=== PATIENT | male | born 1950 | race Caucasian/White ===

== ENCOUNTER 2024-07-22 09:09 | Outpatient (OUT) | payer MEDICARE, OTHER, SELFPAY ==
--- NOTE | 2024-07-22 09:21 | CA_ITS ---
Patient Name: EMMA ALVARENGA MR#: [id number] : 1950 Exam Date: 07/22/2024 Ordering Doctor: DR DENNIS PERKINS ECHOCARDIOGRAM REPORT PROCEDURE: CA ECHO DOPPLER COMPLETE INDICATIONS: Chest pain, Shortness of breath COMPARISON: None. DESCRIPTION: COMPLETE ECHOCARDIOGRAM Real-time transthoracic echocardiography with 2D, M-mode, spectral and color flow Doppler performed. QUALITY: Technical quality was good. LEFT VENTRICLE: Normal chamber size. Mild left ventricular hypertrophy. LV EF: Global left ventricular systolic function is mildly decreased. Visual estimation of left ventricular ejection fraction is 45-50%. Global hypokinesis. DIASTOLIC: Not adequately assessed due to heart rhythm. ATRIAL SEPTUM: Inadequately seen. LEFT ATRIUM: Normal chamber size. RIGHT ATRIUM: Mildly dilated. RIGHT VENTRICLE: Normal chamber size. Normal right ventricular systolic function. TRICUSPID VALVE: Normal mobility and thickness. No stenosis with mild regurgitation. No evidence of pulmonary hypertension. RVSP 24mmHg MITRAL VALVE: Normal mobility and thickness. No evidence of mitral valve stenosis. There is no mitral annular calcification. Mild mitral regurgitation. AORTIC VALVE: Normal trileaflet appearance. Mildly calcified aortic valve. Normal leaflet mobility. No evidence of aortic valve stenosis. AORTIC ROOT: Normal diameter and appearance. PULMONIC VALVE: Normal thickness and mobility. No stenosis. Trivial regurgitation. PERICARDIUM: No evidence of pericardial effusion. IVC: Collapses with inspirations. Mild dilatation measuring 2.3cm. CONCLUSION: 1. Global left ventricular systolic function is mildly decreased; visually estimated ejection fraction is 45 to 50% 2. Normal right ventricular size and systolic function 3. Mild left ventricular hypertrophy 4. The right atrium is mildly enlarged 5. Mild tricuspid regurgitation 6. Mild mitral regurgitation Adult Echocardiography Procedure Report Left Ventricle LVEDD (3.7 - 5.6 cm): 5.08 cm LVESD (2.2 - 4.0 cm): 3.54 cm LVIVS thickness (0.6 - 1.2 cm): 1.34 cm LVPW thickness (0.5 - 1.0 cm): 1.20 cm e': 0.08 m/s E - e': 6.42 LVOT Max Gradient: 1.82 mm[Hg] LVOT Area (cm2): 0.68 m/s Peak Velocity (LVOT): 0.68 m/s Mean Velocity (LVOT): 0.44 m/s LVOT Diameter 2.25 cm Left Ventricular Ejection Fraction: 51.06 % Left Atrium LA Volume Index (2D A2C): 31.50 ml/m2 Left Atrium Systolic Dimension: 4.22 cm Mitral Valve MV E to A Ratio: 1.45 Mitral Valve A-Wave Peak Velocity: 0.36 m/s Mitral Valve E-Wave Peak Velocity: 0.52 m/s Right Ventricle RV Internal Diastolic Dimension: 3.81 cm Aorta AO Root Diam: 3.40 cm Ascending Ao Diam: 3.32 cm, 3.36 cm Aortic Valve AoV Area (Peak Ed): 2.38 cm2, 2.38 cm2 AoV Area (VTI): 2.49 cm2, 2.49 cm2 Peak Velocity(Antegrade Flow): 1.12 m/s Peak Gradient(Antegrade Flow): 5.06 mm[Hg] Mean Velocity(Antegrade Flow): 0.82 m/s Mean Gradient(Antegrade Flow): 3.06 mm[Hg] Velocity Time Integral: 22.55 cm Tricuspid Valve Peak Velocity (Regurgitant Flow): 2.03 m/s, 1.98 m/s, 2.26 m/s Pulmonic Valve Mean Gradient: 3.10 mm[Hg], 2.86 mm[Hg] Mean Velocity: 0.83 m/s, 0.81 m/s Peak Velocity: 1.11 m/s Peak Gradient: 5.32 mm[Hg], 4.50 mm[Hg] Right Atrium Right Atrium Systolic Pressure: 97.21 ml, 97.21 ml Dictated by: Laina Mcqueen M.D. on 07/22/2024 at 16:27 Approved by: Laina Mcqueen M.D. on 07/22/2024 at 16:31
== END 2024-07-22 09:10 | disposition home or self-care (01) ==
LOC: CARD 09:16
PROVIDERS: Family Provider Internal Medicine; PCP Internal Medicine; Visit Provider Internal Medicine
DX: R60.0 Localized edema (principal); R06.02 Shortness of breath; R93.1 Abnormal findings on diagnostic imaging of heart and coronary circulation; R07.9 Chest pain, unspecified
CPT/HCPCS: 93306

== ENCOUNTER 2024-08-05 07:57 | Outpatient (OUT) | payer MEDICARE, OTHER, SELFPAY ==
--- NOTE | 2024-08-05 07:35 | NM_ITS ---
Patient Name: EMMA ALVARENGA MR#: [id number] : 1950 Exam Date: 08/05/2024 Ordering Doctor: Willie Dos Santos RADIOLOGY REPORT PROCEDURE: NM POONAM PERF SPECT REST STR COMPARISON: None. INDICATIONS: DYSPNEA ON EXERTION, ABNORMAL EKG TECHNIQUE: Exam Description: Rest/Stress one day protocol gated SPECT Rest Imagin.9 mCi Tc-99m Cardiolite IV on 08-05-2024 Stress Imaging 30.1 mCi Tc-99m Cardiolite IV on 08-05-2024 Exercise Protocol: Ryder Heart Rate (bpm): Rest: 50 Max: 141 PMHR: 96 Blood Pressure: Rest: 130/70 Max: 176/90 Exercise Time: Minutes: 6 Seconds: 41 Stage Reached: Stage: 3 Mets 9.0 Symptoms: Rest and peak stress ECG findings were pending and the exercise portion of the study was pending per attending physician [facility] . For more details, please see separate cardiac stress test report. FINDINGS: QUALITY OF STUDY: Good PERFUSION DEFECT: Inferoapical LOCATION: Inferior and apical SIZE: Moderate inferior and small apical SEVERITY: Moderate inferior and mild apical TYPE: The inferior perfusion defect appears fixed, the apical defect appears reversible WALL MOTION: Inferior hypokinesis LV SIZE: 141 mL. TID / TCD: 1.0 LVEF: Calculated EF 48%. SUMMARY: Myocardial perfusion imaging study is abnormal CONCLUSION: 1. Myocardial perfusion is abnormal with soft tissue attenuation 2. There is an inferior fixed defect with associated hypokinesis consistent with infarct 3. There is a small, mild, reversible apical defect suggestive of ischemia 4. Global left ventricular systolic function is mildly reduced 5. No evidence of transient ischemic dilatation Dictated by: Laina Mcqueen M.D. on 08/06/2024 at 12:31 Approved by: Laina Mcqueen M.D. on 08/06/2024 at 12:36
--- NOTE | 2024-08-05 17:07 | P.STRESS_ITS ---
Stress Test Stress Test Requesting physician: Willie Dos Santos Procedure: This was a treadmill stress test with myocardial perfusion imaging performed at [facility] on 08/05/2024. An intravenous line was secured. The patient was attached to electrocardiographic monitoring. Rest of blood pressure and heart rate were recorded. The patient exercised on the treadmill according to the Ryder protocol for 6 minutes and 41 seconds and reached stage III of the protocol. The patient achieved 9 METS. Resting heart rate was 50 bpm and resting blood pressure was 121/69. Peak heart rate was 141 bpm representing 93% of maximum predicted heart rate. Peak blood pressure was 176/90. The test was stopped due to target heart rate being achieved and shortness of breath. Cardiolite was injected at peak exercise. The patient then went on to obtain myocardial perfusion imaging. General Information: Reason for Stress Test: dyspnea, abnormal ECG. Cardiac History and Risk Factors: Atrial fibrillation. Resting 12 - Lead Electrocardiogram: Sinus bradycardia, left axis deviation, right bundle branch block. Stress Test: Protocol: Ryder protocol. Exercise Capacity: Good. Blood Pressure Response: Normal resting blood pressure, normal blood pressure response to exercise. Rhythm: Sinus rhythm at baseline, patient developed atrial flutter with variable AV block during exercise. Then reverted to sinus rhythm with PACs and PVCs. Final ECG was showing sinus rhythm and was comparable to baseline. ST - Response: No ischemic ST changes seen. Patient Response: Shortness of breath. Interpretation: 1. No evidence of ischemic ST changes seen with treadmill exercise stress test. 2. The patient developed atrial flutter with variable AV conduction during exercise that reverted to sinus rhythm at the end of the test. 3. Myocardial perfusion images will be reported separately.
== END 2024-08-05 07:58 | disposition home or self-care (01) ==
LOC: NM 07:57
PROVIDERS: Family Provider Internal Medicine; PCP Internal Medicine; Visit Provider Internal Medicine Cardiovascular Disease
DX: R94.31 Abnormal electrocardiogram [ECG] [EKG] (principal)
CPT/HCPCS: 78452; 93017; A9500

== ENCOUNTER 2024-09-11 15:28 | Outpatient (OUT) | payer MEDICARE, OTHER, SELFPAY ==
[2024-09-11 15:46] LABS: Basophils Percent Auto 0.7 % (0.2-2.0); Eosinophils Absolute Auto 0.2 10^3/uL (0.0-0.7); Eosinophils Percent Auto 3.7 % (0.9-7.0); Hematocrit 35.7 % (42.0-54.0); Hemoglobin 11.2 g/dL (14.0-18.0); Immature Granulocytes Abs Auto 0.02 10^3/uL (0.00-0.03); Immature Granulocytes Pct Auto 0.4 % (0.0-0.5); Mean Corpuscular HGB Conc 31.4 g/dL (29.9-35.2); Mean Corpuscular Hemoglobin 28.9 pg (25.9-34.0); Mean Corpuscular Volume 92.2 fL (80.0-94.0); Mean Platelet Volume 9.9 fL (9.5-13.5); Monocytes Absolute Auto 0.5 10^3/uL (0.3-0.8); Monocytes Percent Auto 9.3 % (1.7-12.0); Neutrophils Absolute Auto 3.9 10^3/uL (1.4-6.5); Neutrophils Percent Auto 67.9 % (43.0-75.0); Platelet Count 337 10^3/uL (150-450); Red Blood Count 3.87 10^6/uL (4.70-6.10); Red Cell Distribution Width 13.1 % (11.0-15.0); White Blood Count 5.7 10^3/uL (4.0-11.0)
== END 2024-09-11 15:29 | disposition home or self-care (01) ==
LOC: LAB 15:29
PROVIDERS: Family Provider Internal Medicine; PCP Internal Medicine; Visit Provider Internal Medicine Interventional Cardiology
DX: I25.10 Atherosclerotic heart disease of native coronary artery without angina pectoris (principal); I50.22 Chronic systolic (congestive) heart failure
CPT/HCPCS: 36415; 85025

== ENCOUNTER 2024-11-25 08:04 | Outpatient (OUT) | payer MEDICARE, OTHER, SELFPAY ==
[2024-11-25 08:33] LABS: Hematocrit 40.3 % (42.0-54.0); Hemoglobin 12.4 g/dL (14.0-18.0); Immature Granulocytes Abs Auto 0.03 10^3/uL (0.00-0.03); Immature Granulocytes Pct Auto 0.6 % (0.0-0.5); Lymphocytes Absolute Auto 0.9 10^3/uL (1.2-3.8); Mean Corpuscular HGB Conc 30.8 g/dL (29.9-35.2); Mean Corpuscular Hemoglobin 24.2 pg (25.9-34.0); Mean Corpuscular Volume 78.7 fL (80.0-94.0); Platelet Count 243 10^3/uL (150-450); Red Blood Count 5.12 10^6/uL (4.70-6.10); White Blood Count 5.4 10^3/uL (4.0-11.0)
[2024-11-25 09:01] LABS: Alanine Aminotransferase 23 U/L (16-63); Albumin Globulin Ratio 1.1; Albumin Level 3.5 g/dL (3.4-5.0); Alkaline Phosphatase 92 U/L (46-116); Anion Gap 11.5; Aspartate Amino Transferase 20 U/L (15-37); Blood Urea Nitrogen 16.0 mg/dL (7.0-18.0); Calcium 8.6 mg/dL (8.5-10.1); Carbon Dioxide 28.9 mmol/L (21.0-32.0); Chloride 107 mmol/L (98-107); Estimated GFR (African America >60 (>=60 mL/min/1.73m^2); Estimated GFR (Non-African Ame >60 (>=60 mL/min/1.73m^2); Globulin 3.2 g/dL; Glucose 136 mg/dL (74-106); NT Pro B Type Natriuretic Pept 103.0 pg/mL (<=1800.0); Potassium 4.4 mmol/L (3.5-5.1); Sodium 143 mmol/L (136-145); Total Protein 6.7 g/dL (6.4-8.2)
== END 2024-11-25 08:05 | disposition home or self-care (01) ==
LOC: LAB 08:05
PROVIDERS: Family Provider Internal Medicine; PCP Internal Medicine; Visit Provider Internal Medicine Interventional Cardiology
DX: M79.89 Other specified soft tissue disorders (principal); I50.23 Acute on chronic systolic (congestive) heart failure; R06.09 Other forms of dyspnea
CPT/HCPCS: 36415; 80053; 83880; 85025

== ENCOUNTER 2024-12-06 07:05 | Outpatient (OUT) | payer MEDICARE, OTHER, SELFPAY ==
--- OUTSIDE RECORDS SUMMARY | 2024-12-06 07:08 | XMS_ITS | CCD ---
Author Organization [facility] Care Team Providers Care Water Quality Specialist Name Role Phone GREGORIO DENNIS Unavailable Unavailable VASCHAK, DENNIS Unavailable Unavailable VASCHAK, DENNIS Unavailable Unavailable DONTAE RUSSELL (FEL) Unavailable Unavailabl e PIORO, JM CLEMENT Unavailable Unavailab le PIORO, JM CLEMENT Unavailable Unavailab le GABINO, SONY Unavailable Unavailable GABINO, SONY Unavailable Unavailable GABINO, SONY Unavailable Unavailable VASCHAK, DENNIS Unavailable Unavailable GABINO, SONY Unavailable Unavailable GABINO, SONY Unavailable Unavailable GABINO, SONY Unavailable Unavailable AGUBOSIM COLTON Unavailable Unavailable RADHAK DENNIS Unavailable Unavailable Radhak Dennis MURRAY Primary Care Provider Dennis Irizarry DO Unavailable MARIELLE PALMER Attending Unavailable DENNIS IRIZARRY Attending Unavailable CELOS MONTANO Attending Unavailable CELSO MONTANO Referring Unavailable PAM JACKSON Attending Unavailable PAM JACKSON Referring Unavailable JR. RAMIREZ GEORGE C Attending UnavailBROOKE Vee Attending Unavailable BROOKE DELGADO Referring Unavailable DENNIS IRIZARRY Attending Unavailable DENNIS IRIZARRY Referring Unavailable REAL HOWARD Referring Unavailabl REAL Vinson Attending Unavailabl e KEITH CHERRY Referring Unavailable DERISOKEITH Referring Unavailable DERKEITH ALFARO Referring Unavailable REAL HOWARD Referring Unavailabl e HAYDERISOKEITH Admitting Unavailable KEITH CHERRY Attending Unavailable JETHRO BARRETT Attending Unavailable CARMINE, KEITH Referring Unavailable DERKEITH ALFARO Referring Unavailable KATIA CHAVEZ Referring Unavailable KATIA CHAVEZ Referring Unavailable LLUVIA DRISCOLL Referring Unavailable REAL HOWARD Referring Unavailabl e DERISO, KEITH Referring Unavailable DERISO, KEITH Referring Unavailable REAL HOWARD Attending UnavailJETHRO Sheppard Attending Unavailable SCOTT, Referring Unavailable SCOTT, Referring Unavailable DERISO, KEITH Referring Unavailable SCOTT, Referring Unavailable SCOTT, Referring Unavailable SCOTT, Referring Unavailable ARMIDA GUTIERREZ Attending Unavailable REAL HOWARD Referring Unavailabl e ELTAHAWY, EHAB Referring Unavailable DERISO, KEITH Referring Unavailable ELTAHAWY, EHAB Attending Unavailable REAL HOWARD Referring Unavailabl e ELTAHAWY, EHAB Referring Unavailable Allergies Allergy Classification Reported Allergen(s) Allergy Type Date of Onset Reaction(s) Facility (1 source) OTHER; Translations: [OTHER] Propensity to adverse reactions (disorder) 0 [facility] Repository (1 source) No Known Drug Allergies Drug allergy (disorder) [facility] Repository (1 source) Misc-Food; Translations: [Misc-Food] Food allergy (disorder) [facility] Rep[facility] Medications Current Medications Medication Drug Class(es) Dates Sig (Normalized) Sig (Original) acetaminophen 500 mg oral tablet (8 sources) Start: 08-21-2024 take 1 tablet by mouth every six hours as needed acetaminophen (Tylenol) 500 MG tablet Take 500 mg by mouth every 6 (six) hours if needed 08/21/2024 Active amiodarone hydrochloride 200 mg oral tablet (6 sources) Antiarrhythmic Start: 07-30-2024 End: 11-11-2024 take 1 tablet by mouth once daily amiodarone (Pacerone) 200 MG tablet Take 200 mg by mouth Daily 07/30/2024 11/11/2024 Active aspirin 81 mg chewable tablet (7 sources) Platelet Aggregation Inhibitor, Nonsteroidal Anti-inflammatory Drug Start: 08-21-2024 End: 11-24-2024 aspirin 81 MG chewable tablet Chew 81 mg in the morning. 08/21/2024 11/24/2024 Active atorvastatin 10 mg oral tablet (18 sources) HMG-CoA Reductase Inhibitor Start: 04-17-2024 End: 04-17-2025 take 1 tablet by mouth once daily atorvastatin (Lipitor) 10 MG tablet Indications: Hypercholesteremia Take 1 tablet (10 mg) by mouth Daily 30 tablet 3 04/17/2024 04/17/2025 Active clopidogrel 75 mg oral tablet (8 sources) P2Y12 Platelet Inhibitor Start: 08-21-2024 End: 11-27-2024 take 1 tablet by mouth in the morning clopidogrel (Plavix) 75 MG tablet Take 75 mg by mouth in the morning. 08/21/2024 11/27/2024 Active latanoprost 0.05 mg/ml ophthalmic solution (20 sources) Prostaglandin Analog Start: 08-01-2023 latanoprost (Xalatan) 0.005 % ophthalmic solution 08/01/2023 Active Start: 08-01-2023 take 1 drop(s) into the eye(s) at bedtime latanoprost (Xalatan) 0.005 % ophthalmic solution PLACE 1 DROP IN BOTH EYES AT BEDTIME 08/01/2023 Active magnesium oxide 500 mg oral capsule (20 sources) Magnesium 500 MG capsule 1 (one) time each day at the same time Active omeprazole 20 mg delayed release oral capsule (20 sources) Proton Pump Inhibitor Start: 10-26-19 take 1 capsule by mouth before mealtime omeprazole (PriLOSEC) [address] capsule Indications: Gastroesophageal reflux disease without esophagitis TAKE 1 CAPSULE (20 MG) BY MOUTH IN THE MORNING. TAKE BEFORE MEALS. 90 capsule 3 10/26/2023 Active 12 hr timolol 5 mg/ml ophthalmic solution (20 sources) beta-Adrenergic Cyndi Start: 07-05-19 timolol (Timoptic) 0.5 % ophthalmic solution 07/05/2023 Active Start: 07-05-2023 timolol (Timop tic) 0.5 % ophthalmic solution INSTILL 1 DROP TO BOTH EYES EACH MORNING. 07/05/2023 Active Completed/Discontinued Medications Medication Drug Class(es) Dates Sig (Normalized) Sig (Original) docusate sodium 100 mg oral capsule (3 sources) Start: 08-21-2024 End: 09-20-2024 Docusate Sodium (DSS) 100 MG capsule Take 200 mg by mouth 2 (two) times a day as needed 08/21/2024 09/20/2024 ferrous sulfate 325 mg oral tablet (2 sources) Start: 08-21-2024 End: 09-02-2024 take 1 tablet by mouth at mealtime ferrous sulfate 325 (65 Fe) MG tablet Take 325 mg by mouth in the morning. Take with meals. 08/21/2024 09/02/2024 Discontinued (Therapy completed) furosemide 40 mg oral tablet (3 sources) Loop Diuretic Start: 08-21-2024 End: 09-20-2024 take 1 tablet by mouth in the morning as needed furosemide (Lasix) 40 MG tablet Take 40 mg by mouth in the morning. PRN. 08/21/2024 09/20/2024 12 hr guaiFENesin 600 mg extended release oral tablet (2 sources) Start: 08-21-2024 End: 09-02-2024 take 1 tablet by mouth in the morning as needed, then take 1 tablet by mouth every twelve hours in the evening as needed guaiFENesin (Mucinex) 600 MG 12 hr tablet Take 600 mg by mouth in the morning and 600 mg in the evening. PRN. 08/21/2024 09/02/2024 Ibuprofen (17 sources) Nonsteroidal Anti-inflammatory Drug End: 09-02-2024 Ibuprofen (ADVIL PO) Take by mouth PRN 09/02/2024 Discontinued (Therapy completed) Ibuprofen (ADVIL PO) Take by mouth PRN Active methocarbamol 500 mg oral tablet (2 sources) Muscle Relaxant Start: 08-29-2024 End: 09-02-2024 take 1 tablet by mouth three times daily as needed methocarbamol (Robaxin) 500 MG tablet Take 500 mg by mouth 3 (three) times a day as needed 08/29/2024 09/02/2024 Discontinued (Therapy completed) 1 ml methylPREDNISolone acetate 40 mg/ml injection (4 sources) Corticosteroid Start: 04-09-2024 End: 04-09-2024 methylPREDNISolone acetate (DEPO-Medrol) injection 40 mg Start: 04-09-2024 End: 04-09-2024 40 mg, Intra-articular, Once PRN Procedure, Starting on Mon04/09/24 at 1239, For 1 dose oxyCODONE hydrochloride 5 mg oral tablet (2 sources) Opioid Agonist Start: 08-21-2024 End: 09-02-2024 take 1 tablet by mouth every six hours as needed oxyCODONE (Roxicodone) 5 MG immediate release tablet Take 5 mg by mouth every 6 (six) hours if needed 08/21/2024 09/02/2024 Discontinued (Therapy completed) Problems Active Problems Problem Classification Problem Date Documented Date Episodic/Chronic Abdominal hernia (5 sources) Bilateral inguinal hernia, without obstruction or gangrene, not specified as recurrent; Translations: [BRITNI ING CAROLYN NO OBST/GANG NOT RECUR] Onset: 01-08-2018 Episodic Cardiac dysrhythmias (10 sources) Atrial fibrillation; Translations: [Unspecified atrial fibrillation] Onset: 08-18-2024 11-02-2024 Chronic Congestive heart failure; nonhypertensive (6 sources) Acute diastolic heart failure; Translations: [Acute diastolic (congestive) heart failure] Onset: 09-11-2024 11-02-2024 Chronic Coronary atherosclerosis and other heart disease (4 sources) Atherosclerotic heart disease of [place] coronary artery with other forms of angina pectoris; Translations: [Atherosclerotic heart disease of [place] coronary artery without angina pectoris] Onset: 08-14-2024 Chronic Deficiency and other anemia (2 sources) Anemia due to blood loss; Translations: [Iron deficiency anemia secondary to blood loss (chronic)] 11-02-2024 Chronic Deficiency and other anemia (2 sources) Anemia, unspecified; Translations: [Anemia, unspecified] Onset: 08-29-2024 Episodic Disorders of lipid metabolism (20 sources) Hyperlipidemia, unspecified; Translations: [Hypercholesterolemia] Onset: 01-18-2018 Resolved: 11-02-2024 09-14-2023 Chronic Esophageal disorders (20 sources) Gastroesophageal reflux disease without esophagitis; Translations: [Gastro-esophageal reflux disease without esophagitis] Onset: 03-19-2017 09-14-2023 Chronic Joint disorders and dislocations; trauma-related (4 sources) Derangement of right knee; Translations: [Unspecified internal derangement of right knee] 04-24-2024 Chronic Osteoarthritis (20 sources) Unspecified osteoarthritis, unspecified site; Translations: [Primary osteoarthritis, unspecified site] Onset: 03-13-2017 09-14-2023 Chronic Other and unspecified benign neoplasm (1 source) Benign lipomatous neoplasm of spermatic cord; Translations: [SHARYN LIPOMATOUS NEOP SPERMATIC CORD] Onset: 01-18-2018 Episodic Other circulatory disease (2 sources) Other hypotension; Translations: [Other hypotension] Onset: 09-11-2024 Episodic Other connective tissue disease (2 sources) Other specified soft tissue disorders; Translations: [Other specified soft tissue disorders] Onset: 11-21-2024 Episodic Other connective tissue disease (2 sources) Myalgia, unspecified site; Translations: [Myalgia, unspecified site] Onset: 08-29-2024 Episodic Other liver diseases (2 sources) Elevated liver enzymes level; Translations: [Abnormal levels of other serum enzymes] 11-02-2024 Episodic Other lower respiratory disease (2 sources) Dyspnea; Translations: [Shortness of breath] 07-15-2024 Episodic Other lower respiratory disease (2 sources) Other forms of dyspnea; Translations: [Other forms of dyspnea] Onset: 11-21-2024 Episodic Other nervous system disorders (20 sources) Chronic pain syndrome; Translations: [Chronic pain syndrome] Onset: 09-14-2023 09-14-2023 Chronic Other nervous system disorders (2 sources) Benign fasciculation-cramp syndrome; Translations: [Fasciculation] 03-22-2024 Episodic Other non-traumatic joint disorders (6 sources) Pain in right knee; Translations: [Pain in joint, lower leg] 04-08-2024 Episodic Other screening for suspected conditions (not mental disorders or infectious disease) (20 sources) Coronary artery finding; Translations: [Abnormal findings on diagnostic imaging of heart and coronary circulation] Onset: 07-20-2017 09-14-2023 Episodic Residual codes; unclassified (4 sources) Bilateral lower limb edema; Translations: [Localized edema] 07-16-2024 Episodic Residual codes; unclassified (6 sources) History of maze procedure for atrial fibrillation; Translations: [Other specified postprocedural states] Onset: 11-02-2024 11-02-2024 Episodic Residual codes; unclassified (6 sources) H/O cardiac surgery; Translations: [Other specified postprocedural states] Onset: 11-02-2024 11-02-2024 Episodic Residual codes; unclassified (2 sources) Other specified postprocedural states; Translations: [Other specified postprocedural states] Onset: 09-11-2024 Episodic Spondylosis; intervertebral disc disorders; other back problems (20 sources) Cervical spondylosis without myelopathy; Translations: [Spondylosis without myelopathy or radiculopathy, cervical region] Onset: 09-14-2023 09-14-2023 Chronic Substance-related disorders (1 source) Nicotine dependence, other tobacco product, uncomplicated; Translations: [NICOTINE DEPEND OTH TOB PROD UNCOMP] Onset: 01-18-2018 Chronic Unclassified (2 sources) Pure hypercholesterolemia, unspecified / E78.00(ICD-9) Onset: 07-17-2017 Unclassified (1 source) Encounter for screening for cardiovascular disorders / Z13.6(ICD-9) Onset: 07-17-2017 Past or Other Problems Problem Classification Problem Date Documented Da te Episodic/Chronic Coronary atherosclerosis and other heart disease (2 sources) Presence of aortocoronary bypass graft; Translations: [Presence of aortocoronary bypass graft] Onset: 08-14-2024 Episodic Other aftercare (2 sources) Encounter for follow-up examination after completed treatment for conditions other than malignant neoplasm; Translations: [Encounter for follow-up examination after completed treatment for conditions other than malignant neoplasm] Onset: 08-14-2024 Episodic Other lower respiratory disease (2 sources) Dyspnea, unspecified; Translations: [Dyspnea, unspecified] Onset: 08-14-2024 Episodic Other nutritional; endocrine; and metabolic disorders (20 sources) Obesity; Translations: [Obesity, unspecified] Onset: 09-14-2023 Resolved: 11-02-2024 09-14-2023 Chronic Residual codes; unclassified (2 sources) Pain, unspecified; Translations: [Pain, unspecified] Onset: 08-14-2024 Episodic Spondylosis; intervertebral disc disorders; other back problems (20 sources) Chronic neck pain; Translations: [Cervicalgia] Onset: 03-19-2017 09-14-2023 Episodic Unclassified (1 source) Pure hypercholesterolemia , unspecified; Translations: [Pure hypercholesterolemia , unspecified] Onset: 07-17-2017 Results Test Name Value Interpretation Reference Range Facility ALL CBC WITH AUTO DIFFon BASOPHILS ABSOLUTE AUTO 0.1 [facility] Basophils/100 WBC (Bld) 0.9 % 0.2 - 2.0 % [facility] Eosinophils/100 WBC (Bld) 3.5 % 0.9 - 7.0 % [facility] Erythrocyte distribution width (RBC) [Ratio] 15.1 % High 11.0 - 15.0 % [facility] Hematocrit (Bld) [Volume fraction] 40.3 % Low 42.0 - 54.0 % [facility] Hemoglobin (Bld) [Mass/Vol] 12.4 g/dL Low 14.0 - 18.0 g/dL [facility] IMMATURE GRANULOCYTES ABS AUTO 0.03 [facility] Immature granulocytes/100 WBC (Bld) 0.6 % High 0.0 - 0.5 % [facility] Interpretation and review of laboratory results Abnormal [facility] LYMPHOCYTES ABSOLUTE AUTO 0.9 Low [facility] Lymphocytes/100 WBC (Bld) 17.3 % Low 20.5 - 60.0 % [facility] MCH (RBC) [Entitic mass] 24.2 pg Low 25.9 - 34.0 pg [facility] MCHC (RBC) [Mass/Vol] 30.8 g/dL 29.9 - 35.2 g/dL [facility] MCV (RBC) [Entitic vol] 78.7 fL Low 80.0 - 94.0 fL [facility] MONOCYTES ABSOLUTE AUTO 0.4 [facility] Monocytes/100 WBC (Bld) 7.9 % 1.7 - 12.0 % [facility] NEUTROPHILS ABSOLUTE AUTO 3.8 [facility] Neutrophils/100 WBC (Bld) 69.8 % 43.0 - 75.0 % [facility] Platelet mean volume (Bld) [Entitic vol] 10.1 fL 9.5 - 13.5 fL [facility] TBH EO # 0.2 [facility] TB PLT [address] [facility] RBC 5.12 [facility]H WBC 5.4 [facility] ITPon 11-14-2024 [place] [address] Cardiac Rehab Report Signed Patient: EMMA JAMES MR#: [id number] : 1950 Acct:[id number] Age/Sex: 74 / M ADM Date: 11/14/24 Loc: CR Attending Dr: ARMIDA GUTIERREZ Ordering Physician: Steve Albright D.O. Date of Service: 11/14/24 Procedure(s): ITP Accession Number(s): [id number] cc: [facility] Test Date: 2024-11-14 Pat Name: EMMA JAMES Department: Room: - Gender: Male Extension Supervisor: : 1950 Requested By: Steve Albright Order Number: [id number] Reading MD: Steve Albright Interpretive Statements Though it can be difficult to attend rehab due to work, taking care of oneself is important. Perhaps looking ahead in his schedule, he would be able to identify alternative sessions that would fit into his life easier. The patient is encouraged to continue participating in cardiac rehabilitation. Electronically Signed On 11-14-2024 15:33:33 EDT by Steve Albright Dictated By: Steve Albright D.O. Signed By: 11/14/24 1534 11/14/244 DD/ 0856 TD/TT: Manager Quality Compliance: [facility] Radiology, Radiologi MD jairo - 11/14/2024 [place] [address] Cardiac Rehab Report Signed Patient: EMMA JAMES MR#: [id number] : 1950 Acct:[id number] Age/Sex: 74 / M ADM Date: 11/14/24 Loc: CR Attending Dr: ARMIDA GUTIERREZ Ordering Physician: Steve Albright D.O. Date of Service: 11/14/24 Procedure(s): ITP Accession Number(s): [id number] cc: [facility] Test Date: 2024-11-14 Pat Name: EMMA JAMES Department: Room: - Gender: Male Extension Supervisor: : 1950 Requested By: Steve Albright Order Number: [id number] Rob MD: Steve Albright Interpretive Statements Though it can be difficult to attend rehab due to work, taking care of oneself is important. Perhaps looking ahead in his schedule, he would be able to identify alternative sessions that would fit into his life easier. The patient is encouraged to continue participating in cardiac rehabilitation. Electronically Signed On 11-14-2024 15:33:33 EDT by Steve Albright Dictated By: Steve Albright D.O. Signed By: 11/14/24153311/14/24 1534 DD/ 0856 TD/TT: Manager Quality Compliance: [facility] Radiology Study observation (narrative) [facility] ITPOrdered By: Radiologist Jeff avila on 11-14-2024 [facility] Work Phone: 36on 11-08-2024 36 [facility] ITPon 10-16-2024 [place] [address] Cardiac Rehab Report Signed Patient: EMMA JAMES MR#: [id number] : 1950 Acct:[id number] Age/Sex: 73 / M ADM Date: 10/16/24 Loc: CR Attending Dr: ARMIDA GUTIERREZ Ordering Physician: Steve Albright D.O. Date of Service: 10/16/24 Procedure(s): ITP Accession Number(s): [id number] cc: [facility] Test Date: 2024-10-16 Pat Name: EMMA JAMES Department: Room: - Gender: Male Extension Supervisor: : 1950 Requested By: Steve Albright Order Number: [id number] Reading MD: Steve Albright Interpretive Statements Okay to continue with outlined treatment plan. Electronically Signed On 10-16-2024 9:16:57 EDT by Steve Albright Dictated By: Steve Albright D.O. Signed By: 10/16/24 0917 10/16/24 0917 DD/ 0715 TD/TT: Manager Quality Compliance: [facility] Radiology, Radiologez gill MD - 10/16/2024 The [place] [id number] Cardiac Rehab Report Signed Patient: EMMA JAMES MR#: [id number] : 1950 Acct:[id number] Age/Sex: 73 / M ADM Date: 10/16/24 Loc: CR Attending Dr: ARMIDA GUTIERREZ Ordering Physician: Steve Albright D.O. Date of Service: 10/16/24 Procedure(s): ITP Accession Number(s): [id number] cc: [facility] Test Date: 2024-10-16 Pat Name: EMMA JAMES Department: Room: - Gender: Male Extension Supervisor: : 1950 Requested By: Steve Albright Order Number: [id number] Rob MD: Steve Albright Interpretive Statements Okay to continue with outlined treatment plan. Electronically Signed On 10-16-2024 9:16:57 EDT by Steve Albright Dictated By: Steve Albright D.O. Signed By: 10/16/24 0917 10/16/24 0917 DD/ 0715 TD/TT: Manager Quality Compliance: [facility] Radiology Study observation (narrative) [facility] ITPOrdered By: Radiologist R adiology on 10-16-2024 [facility] Work Phone: 36on 09-25-2024 36 [facility] ITPon 09-23-2024 [place] [address] Cardiac Rehab Report Signed Patient: EMMA JAMES MR#: [id number] : 1950 Acct:[id number] Age/Sex: 73 / M ADM Date: 09/20/24 Loc: CR Attending Dr: ARMIDA GUTIERREZ Ordering Physician: Steve Albright D.O. Date of Service: 09/20/24 Procedure(s): ITP Accession Number(s): [id number] cc: [facility] Test Date: 2024-09-20 Pat Name: EMMA JAMES Department: Room: - Gender: Male Extension Supervisor: : 1950 Requested By: Steve Albright Order Number: [id number] Rob MD: Steve Albright Interpretive Statements Okay to proceed with outlined treatment plan. Electronically Signed On 09-23-2024 13:37:01 EDT by Steve Albright Dictated By: Steve Albright D.O. Signed By: 09/23/24 1337 09/23/24 1337 DD/ 1309 TD/TT: Manager Quality Compliance: [facility] RadiologyEricaogez gill MD - 09/23/2024 [place] [address] Cardiac Rehab Report Signed Patient: EMMA JAMES MR#: [id number] : 1950 Acct:[id number] Age/Sex: 73 / M ADM Date: 09/20/24 Loc: CR Attending Dr: ARMIDA GUTIERREZ Ordering Physician: Steve Albright D.O. Date of Service: 09/20/24 Procedure(s): ITP Accession Number(s): [id number] cc: [facility] Test Date: 2024-09-20 Pat Name: EMMA JAMES Department: Room: - Gender: Male Extension Supervisor: : 1950 Requested By: Steve Albright Order Number: [id number] Rob MD: Steve Albright Interpretive Narciso Franco to proceed with outlined treatment plan. Electronically Signed On 09-23-2024 13:37:01 EDT by Steve Albright Dictated By: Steve Albright D.O. Signed By: 09/23/24 1337 09/23/24 1337 DD/ 1309 TD/TT: Manager Quality Compliance: [place] [address] Cardiac Rehab Report Signed Patient: EMMA JAMES MR#: [id number] : 1950 Acct:[id number] Age/Sex: 73 / M ADM Date: 09/20/24 Loc: CR Attending Dr: ARMIDA GUTIERREZ Ordering Physician: Steve Albright D.O. Date of Service: 09/18/24 Procedure(s): ITP Accession Number(s): [id number] cc: [facility] Test Date: 2024-09-18 Pat Name: EMMA JAMES Department: Room: - Gender: Male Extension Supervisor: : 1950 Requested By: Steve Albright Order Number: [id number] Rob MD: Steve Albright Interpretive Statements Okay to proceed with outlined treatment plan. Electronically Signed On 09-23-2024 13:37:19 EDT by Steve Albright Dictated By: Steve Albright D.O. Signed By: 09/23/24133609/23/241336 DD/ 130 TD/TT: Manager Quality Compliance: [facility] Radiology, Radiologez gill MD - 09/23/2024 [place] [address] Cardiac Rehab Report Signed Patient: EMMA JAMES MR#: [id number] : 1950 Acct:[id number] Age/Sex: 73 / M ADM Date: 09/20/24 Loc: CR Attending Dr: ARMIDA GUTIERREZ Ordering Physician: Steve Albright D.O. Date of Service: 09/18/24 Procedure(s): ITP Accession Number(s): [id number] cc: [facility] Test Date: 2024-09-18 Pat Name: EMMA JAMES Department: Room: - Gender: Male Extension Supervisor: : 1950 Requested By: Steve Albright Order Number: [id number] Rob MD: Steve Albright Interpretive Statements Calvinay to proceed with outlined treatment plan. Electronically Signed On 09-23-2024 13:37:19 EDT by Steve Albright Dictated By: Steve Albright D.O. Signed By: 09/23/24133609/23/241336 DD/ 130 TD/TT: Manager Quality Compliance: [facility] No Panel InformationOrdered By: Radiologist Radiology on 09-23-2024 [facility] Work Phone: ITPon 09-20-2024 Radiology Study observation (narrative) [facility] ITPon 09-18-2024 Radiology Study observation (narrative) [facility] ALL CBC WITH AUTO DIFFon BASOPHILS ABSOLUTE AUTO 0 [facility] Basophils/100 WBC (Bld) 0.7 % 0.2 - 2.0 % [facility] Eosinophils/100 WBC (Bld) 3.7 % 0.9 - 7.0 % [facility] Erythrocyte distribution width (RBC) [Ratio] 13.1 % 11.0 - 15.0 % [facility] Hematocrit (Bld) [Volume fraction] 35.7 % Low 42.0 - 54.0 % [facility] Hemoglobin (Bld) [Mass/Vol] 11.2 g/dL Low 14.0 - 18.0 g/dL [facility] IMMATURE GRANULOCYTES ABS AUTO 0.02 [facility] Immature granulocytes/100 WBC (Bld) 0.4 % 0.0 - 0.5 % [facility] [facility] Interpretation and review of laboratory results Abnormal [facility] LYMPHOCYTES ABSOLUTE AUTO 1 Low [facility] Lymphocytes/100 WBC (Bld) 18 % Low 20.5 - 60.0 % [facility] MCH (RBC) [Entitic mass] 28.9 pg 25.9 - 34.0 pg [facility] MCHC (RBC) [Mass/Vol] 31.4 g/dL 29.9 - 35.2 g/dL [facility] MCV (RBC) [Entitic vol] 92.2 fL 80.0 - 94.0 fL [facility] MONOCYTES ABSOLUTE AUTO 0.5 [facility] Monocytes/100 WBC (Bld) 9.3 % 1.7 - 12.0 % [facility] NEUTROPHILS ABSOLUTE AUTO 3.9 [facility] Neutrophils/100 WBC (Bld) 67.9 % 43.0 - 75.0 % [facility] Platelet mean volume (Bld) [Entitic vol] 9.9 fL 9.5 - 13.5 fL [facility] TBH EO # 0.2 [facility]H PLT 337 [facility] TB RBC 3.87 Low [facility] WBC 5.7 [facility] CL[facility]IS[facility]NC [facility] Telemedicineon 09-05-2024 Telemedicine Normal [facility] Basic metabolic 1998 panelon 09-02-2024 Calcium [Mass/Vol] 9.7 mg/dL 8.6 - 10. 2 mg/dL [facility] Chloride [Moles/Vol] 100 mmol/L 96 - 10 6 mmol/L [facility] CO2 [Moles/Vol] 29 mmol/L 20 - 29 mmol/L [facility] Creatinine [Mass/Vol] 1.01 mg/dL 0.76 - 1.27 mg/dL [facility] GFR/1.73 sq M.predicted among non-blacks MDRD (S/P/Bld) [Vol rate/Area] 78 mL/min/{1.73_m2} 59 - PINF mL/min/1.7 3 [facility] Glucose [Mass/Vol] 98 mg/dL 70 - 99 mg/dL [facility] Potassium [Moles/Vol] 5 mmol/L 3.5 - 5.2 mmol/L [facility] Sodium [Moles/Vol] 141 mmol/L 134 - 144 mmol/L [facility] Urea nitrogen [Mass/Vol] 19 mg/dL 8 - 27 mg/dL [facility] Urea nitrogen/Creatinine [Mass ratio] 19 mg/mg 10 - 24 [facility] Healthcare Performed at: 01 - L [facility] [address], [address], [place], [place] [id number] Cook Apprentice: Johana Ireland MD, Phone: [phone] [facility] 36on 08-30-2024 36 Normal [facility] CBC WITH AUTO DIFFERENTIALon 08-29-2024 Basophils (Bld) [#/Vol] 0.06 10*3/uL Normal 0.00-0.20 [facility] Comment on above: Performed By: #### L [id number] ####[facility] ([facility])[address] [place] [address] Basophils/100 WBC (Bld) 0.5 % Normal 0.0-1.0 [facility] Comment on above: Performed By: #### L [id number] ####[facility] ([facility])[address] [place] [address] Eosinophils (Bld) [#/Vol] 0.11 10*3/uL Normal 0.00-0.50 [facility] Comment on above: Performed By: #### L [id number] ####[facility] ([facility])[address] [place] [address] Eosinophils/100 WBC (Bld) 1.0 % Normal 0.0-6.0 [facility] Comment on above: Performed By: #### L [id number] ####[facility] ([facility])[address] [place] [address] Erythrocyte distribution width (RBC) [Ratio] 14.3 % Normal 11.5-15.0 [facility] Comment on above: Performed By: #### L [id number] ####[facility] ([facility] [place] [address] ERYTHROCYTE MEAN CORPUSCULAR HEMOGLOBIN CONCENTRATION (G/DL) BY AUTOMATED 30.9 g/dL Low 32.0-35.0 [facility] Comment on above: Performed By: #### L [id number] ####[facility] ([facility])[address] [place] [address] Hematocrit (Bld) [Volume fraction] 33.3 % Low 39.0-50.0 [facility] Comment on above: Performed By: #### L [id number] ####[facility] ([facility] [place] [address] Hemoglobin (Bld) [Mass/Vol] 10.3 g/dL Low 13.0-17.0 [facility] Comment on above: Performed By: #### L [id number] ####[facility] ([facility])[address] [place] [address] Immature granulocytes (Bld) [#/Vol] 0.19 10*3/uL Normal 0.00-0.20 [facility] Comment on above: Performed By: #### L [id number] ####[facility] ([facility])[address] [place] [address] Immature granulocytes/100 WBC (Bld) 1.7 % High 0.0-1.0 [facility] Comment on above: Performed By: #### L [id number] ####[facility] ([facility])[address] [place] [address] Lymphocytes (Bld) [#/Vol] 0.86 10*3/uL Low 1.20-4.00 [facility] Comment on above: Performed By: #### L [id number] ####[facility] ([facility])[address] [place] [address] Lymphocytes/100 WBC (Bld) 7.8 % Low 20.0-45.0 [facility] Comment on above: Performed By: #### L [id number] ####[facility] ([facility] [place] [address] MCH (RBC) [Entitic mass] 29.9 pg Normal 27.0-33.0 [facility] Comment on above: Performed By: #### L [id number] ####[facility] ([facility] [place] [address] MCV (RBC) [Entitic vol] 96.5 fL Normal 82.0-98.0 [facility] Comment on above: Performed By: #### L [id number] ####[facility] ([facility] [place] [address] Monocytes (Bld) [#/Vol] 0.83 10*3/uL Normal 0.10-1.00 [facility] Comment on above: Performed By: #### L [id number] ####[facility] ([facility] [place] [address] Monocytes/100 WBC (Bld) 7.5 % Normal 5.0-12.0 [facility] Comment on above: Performed By: #### L [id number] ####[facility] ([facility] [place] [address] Neutrophils (Bld) [#/Vol] 9.04 10*3/uL High 1.60-7.60 [facility] Comment on above: Performed By: #### L [id number] ####[facility] ([facility])[address] [place] [address] Neutrophils/100 WBC (Bld) 81.5 % High 40.0-72.0 [facility] Comment on above: Performed By: #### L [id number] ####[facility] ([facility])[address] [place] [address] NRBC (PER 100 WBCS) BY AUTOMATED COUNT 0.0 % Normal 0 [facility] Comment on above: Performed By: #### L [id number] ####[facility] ([facility] [place] [address] PLATELETS (10*3/UL) IN BLOOD AUTOMATED COUNT 633 10*3/uL High 150-400 [facility] Comment on above: Performed By: #### L [id number] ####[facility] ([facility] [place] [address] RBC (Bld) [#/Vol] 3.45 10*6/uL Low 4.20-5.70 [facility] Comment on above: Performed By: #### L [id number] ####[facility] ([facility])[address] [place] [address] WBC (Bld) [#/Vol] 11.09 10*3/uL High 4.00-10.60 [facility] Comment on above: Performed By: #### L [id number] ####[facility] ([facility] [place] [address] COMPREHENSIVE METABOLIC PANE Brice 08-29-2024 Albumin [Mass/Vol] 4.1 g/dL Normal 3.5-5.7 [facility] Comment on above: Performed By: #### L [id number] ####[facility] ([facility] [place] [address] ALP [Catalytic activity/Vol] 158 U/L High 34-104 [facility] Comment on above: Performed By: #### L [id number] ####[facility] ([facility] [place] [address] ALT [Catalytic activity/Vol] 57 U/L High 7-52 [facility] Comment on above: Performed By: #### L [id number] ####[facility] ([facility])[address] [place] [address] Anion gap [Moles/Vol] 9 mmol/L Normal 7-20 [facility] Comment on above: Performed By: #### L [id number] ####[facility] ([facility])[address] [place] [address] AST [Catalytic activity/Vol] 32 U/L Normal 13-39 [facility] Comment on above: Performed By: #### L [id number] ####[facility] ([facility])[address] [place] [address] Bilirubin [Mass/Vol] 0.8 mg/dL Normal 0.3-1.0 [facility] Comment on above: Performed By: #### L [id number] ####[facility] ([facility])[address] [place] [address] Calcium [Mass/Vol] 9.2 mg/dL Normal 8.6-10.3 [facility] Comment on above: Performed By: #### L [id number] ####[facility] ([facility])[address] [place] [address] Chloride [Moles/Vol] 99 mmol/L Normal 98-107 [facility] Comment on above: Performed By: #### L [id number] ####[facility] ([facility])[address] [place] [address] CO2 [Moles/Vol] 33 mmol/L High 21-31 [facility] Comment on above: Performed By: #### L [id number] ####[facility] ([facility])[address] [place] [address] Creatinine [Mass/Vol] 1.10 mg/dL Normal 0.70-1.30 [facility] Comment on above: Performed By: #### L [id number] ####[facility] ([facility])[address] [place] [address] GLOMERULAR FILTRATION RATE ML/MIN/1.73 SQ M.PREDICTED 70.4 mL/min/1.73m*2 Normal >60.0 [facility] Comment on above: Result Comment: The [facility]???s estimated glomerular filtration rate (eGFR) will no longer include consideration of race in its calculation. The National Kidney Foundation???s eGFR Task Force developed new recommendations for the estimation of the glomerular filtration rate in the [place] They recommend immediate implementation of the new equation refit without the race variable in all laboratories because the calculation does not include race. In addition to not including race in the calculation and reporting, it included diversity in its development, and has acceptable performance characteristics and potential consequences that do not disproportionately affect any one group of individuals. Performed By: #### L [id number] ####[facility] ([facility])[address] [place] [address] Glucose [Mass/Vol] 90 mg/dL Normal 70-100 [facility] Comment on above: Performed By: #### L [id number] ####[facility] ([facility])[address] [place] [address] Potassium [Moles/Vol] 3.8 mmol/L Normal 3.5-5.1 [facility] Comment on above: Performed By: #### L [id number] ####[facility] ([facility])[address] [place] [address] Protein [Mass/Vol] 7.4 g/dL Normal 6.0-8.3 [facility] Comment on above: Performed By: #### L [id number] ####[facility] ([facility])[address] [place] [address] Sodium [Moles/Vol] 137 mmol/L Normal 136-145 [facility] Comment on above: Performed By: #### L [id number] ####[facility] ([facility])[address] [place] [address] Urea nitrogen [Mass/Vol] 20 mg/dL Normal 7-25 [facility] Comment on above: Performed By: #### L [id number] ####[facility] ([facility])[address] [place] [address] UREA NITROGEN/CREATININE (MASS RATIO) IN SER/PLAS 18.2 Normal [facility] Comment on above: Performed By: #### L [id number] ####[facility] ([facility])[address] [place] [address] Labon 08-29-2024 Lab Normal [facility] MAGNESIUMon 08-29-2024 Magnesium [Mass/Vol] 2.3 mg/dL Normal 1.9-2.7 [facility] Comment on above: Performed By: #### L [id number] ####[facility] ([facility] [place] [address] 36on 08-28-2024 36 LVM with call back n mary with appointment details 08/29/2024 @ 1:00pm with labs and xray to be completed prior. Patient called back and confirmed details. Normal [facility] Telephoneon 08-28-2024 Telephone Normal [facility] 36on 08-22-2024 36 Normal [facility] 36 Normal [facility] Telephoneon 08-22-2024 Telephone Normal [facility] 30on 08-21-2024 30 Normal [facility] 30 Normal [facility] 30 Normal [facility] BASIC METABOLIC PANELon 04 Anion gap [Moles/Vol] 9 mmol/L Normal 7-20 [facility] Comment on above: Performed By: #### L [id number] ####[facility] ([facility] [place] [address] Calcium [Mass/Vol] 7.8 mg/dL Low 8.6-10.3 [facility] Comment on above: Performed By: #### L [id number] ####[facility] ([facility])[address] [place] [address] Chloride [Moles/Vol] 101 mmol/L Normal 98-107 [facility] Comment on above: Performed By: #### L [id number] ####[facility] ([facility])[address] [place] [address] CO2 [Moles/Vol] 29 mmol/L Normal 21-31 [facility] Comment on above: Performed By: #### L [id number] ####[facility] ([facility])[address] [place] [address] Creatinine [Mass/Vol] 0.66 mg/dL Low 0.70-1.30 [facility] Comment on above: Performed By: #### L [id number] ####[facility] ([facility])[address] [place] [address] GLOMERULAR FILTRATION RATE ML/MIN/1.73 SQ M.PREDICTED 98.4 mL/min/1.73m*2 Normal >60.0 [facility] Comment on above: Result Comment: The [facility]???s estimated glomerular filtration rate (eGFR) will no longer include consideration of race in its calculation. The National Kidney Foundation???s eGFR Task Force developed new recommendations for the estimation of the glomerular filtration rate in the [place] They recommend immediate implementation of the new equation refit without the race variable in all laboratories because the calculation does not include race. In addition to not including race in the calculation and reporting, it included diversity in its development, and has acceptable performance characteristics and potential consequences that do not disproportionately affect any one group of individuals. Performed By: #### L [id number] ####[facility] ([facility])[address] [place] [address] Glucose [Mass/Vol] 90 mg/dL Normal 70-100 [facility] Comment on above: Performed By: #### L [id number] ####[facility] ([facility])[address] [place] [address] Potassium [Moles/Vol] 3.5 mmol/L Normal 3.5-5.1 [facility] Comment on above: Performed By: #### L [id number] ####[facility] ([facility])[address] [place] [address] Sodium [Moles/Vol] 135 mmol/L Low 136-145 [facility] Comment on above: Performed By: #### L [id number] ####[facility] ([facility])[address] [place] [address] Urea nitrogen [Mass/Vol] 20 mg/dL Normal 7-25 [facility] Comment on above: Performed By: #### L [id number] ####[facility] ([facility])[address] [place] [address] UREA NITROGEN/CREATININE (MASS RATIO) IN SER/PLAS 30.3 Normal [facility] Comment on above: Performed By: #### L [id number] ####[facility] ([facility])[address] [place] [address] CBCon 08-21-2024 Erythrocyte distribution width (RBC) [Ratio] 13.7 % Normal 11.5-15.0 [facility] Comment on above: Performed By: #### L [id number] ####[facility] ([facility])[address] [place] [address] ERYTHROCYTE MEAN CORPUSCULAR HEMOGLOBIN CONCENTRATION (G/DL) BY AUTOMATED 32.8 g/dL Normal 32.0-35.0 [facility] Comment on above: Performed By: #### L [id number] ####[facility] ([facility])[address] [place] [address] Hematocrit (Bld) [Volume fraction] 24.7 % Low 39.0-50.0 [facility] Comment on above: Performed By: #### L [id number] ####[facility] ([facility])[address] [place] [address] Hemoglobin (Bld) [Mass/Vol] 8.1 g/dL Low 13.0-17.0 [facility] Comment on above: Performed By: #### L [id number] ####[facility] ([facility])[address] [place] [address] MCH (RBC) [Entitic mass] 30.2 pg Normal 27.0-33.0 [facility] Comment on above: Performed By: #### L [id number] ####[facility] [place] [address] MCV (RBC) [Entitic vol] 92.2 fL Normal 82.0-98.0 [facility] Comment on above: Performed By: #### L [id number] ####[facility] [place] [address] PLATELETS (10*3/UL) IN BLOOD AUTOMATED COUNT 217 10*3/uL Normal 150-400 [facility] Comment on above: Performed By: #### L [id number] ####[facility] ([facility])[address] [place] [address] RBC (Bld) [#/Vol] 2.68 10*6/uL Low 4.20-5.70 [facility] Comment on above: Performed By: #### L [id number] ####[facility] ([facility])[address] [place] [address] WBC (Bld) [#/Vol] 8.53 10*3/uL Normal 4.00-10.60 [facility] Comment on above: Performed By: #### L [id number] ####[facility] ([facility])[address] [place] [address] DSon 08-21-2024 DS Normal [facility] Letter (Out)on 08-21-2024 Letter (Out) Normal [facility] MAGNESIUMon 08-21-2024 Magnesium [Mass/Vol] 1.9 mg/dL Normal 1.9-2.7 [facility] Comment on above: Performed By: #### L [id number] ####[facility] ([facility])[address] [place] [address] NURSNOTEon 08-21-2024 NURSNOTE Normal [facility] NURSNOTE Normal [facility] POCT GLUCOSE METER UNSOLICIT ED RESULTSon 08-21-2024 Glucose [Mass/Vol] 110 mg/dL High 70-105 [facility] Comment on above: Order Comment: Waive d Testing in the ED is performed under the ED CLIA certificate #[id number]. Result Comment: [email or web address] Performed By: #### L [id number] ####[facility] ([facility])[address] [place] [address] Glucose [Mass/Vol] 97 mg/dL Normal 70-105 [facility] Comment on above: Order Comment: Waive d Testing in the ED is performed under the ED CLIA certificate #[id number]. Result Comment: [email or web address] Performed By: #### L [id number] ####[facility] [place] [address] BASIC METABOLIC PANELon 04-0 Anion gap [Moles/Vol] 8 mmol/L Normal 7-20 [facility] Comment on above: Performed By: #### L [id number] ####[facility] ([facility] [place] [address] Calcium [Mass/Vol] 7.9 mg/dL Low 8.6-10.3 [facility] Comment on above: Performed By: #### L [id number] ####[facility] ([facility] [place] [address] Chloride [Moles/Vol] 99 mmol/L Normal 98-107 [facility] Comment on above: Performed By: #### L [id number] ####[facility] ([facility] [place] [address] CO2 [Moles/Vol] 32 mmol/L High 21-31 [facility] Comment on above: Performed By: #### L [id number] ####[facility] ([facility] [place] [address] Creatinine [Mass/Vol] 0.75 mg/dL Normal 0.70-1.30 [facility] Comment on above: Performed By: #### L [id number] ####[facility] ([facility] [place] [address] GLOMERULAR FILTRATION RATE ML/MIN/1.73 SQ M.PREDICTED 94.7 mL/min/1.73m*2 Normal >60.0 [facility] Comment on above: Result Comment: The [facility]???s estimated glomerular filtration rate (eGFR) will no longer include consideration of race in its calculation. The National Kidney Foundation???s eGFR Task Force developed new recommendations for the estimation of the glomerular filtration rate in the [place] They recommend immediate implementation of the new equation refit without the race variable in all laboratories because the calculation does not include race. In addition to not including race in the calculation and reporting, it included diversity in its development, and has acceptable performance characteristics and potential consequences that do not disproportionately affect any one group of individuals. Performed By: #### L [id number] ####[facility] ([facility])[address] [place] [address] Glucose [Mass/Vol] 108 mg/dL High 70-100 [facility] Comment on above: Performed By: #### L [id number] ####[facility] ([facility])[address] [place] [address] Potassium [Moles/Vol] 3.7 mmol/L Normal 3.5-5.1 [facility] Comment on above: Performed By: #### L [id number] ####[facility] ([facility])[address] [place] [address] Sodium [Moles/Vol] 135 mmol/L Low 136-145 [facility] Comment on above: Performed By: #### L [id number] ####[facility] ([facility])[address] [place] [address] Urea nitrogen [Mass/Vol] 26 mg/dL High 7-25 [facility] Comment on above: Performed By: #### L [id number] ####[facility] ([facility])[address] [place] [address] UREA NITROGEN/CREATININE (MASS RATIO) IN SER/PLAS 34.7 Normal [facility] Comment on above: Performed By: #### L [id number] ####[facility] ([facility])[address] [place] [address] CBCon 08-20-2024 Erythrocyte distribution width (RBC) [Ratio] 13.5 % Normal 11.5-15.0 [facility] Comment on above: Performed By: #### L [id number] ####[facility] ([facility])[address] [place] [address] ERYTHROCYTE MEAN CORPUSCULAR HEMOGLOBIN CONCENTRATION (G/DL) BY AUTOMATED 33.3 g/dL Normal 32.0-35.0 [facility] Comment on above: Performed By: #### L [id number] ####[facility] ([facility])[address] [place] [address] Hematocrit (Bld) [Volume fraction] 23.4 % Low 39.0-50.0 [facility] Comment on above: Performed By: #### L [id number] ####[facility] ([facility])[address] [place] [address] Hemoglobin (Bld) [Mass/Vol] 7.8 g/dL Low 13.0-17.0 [facility] Comment on above: Performed By: #### L [id number] ####[facility] ([facility])[address] [place] [address] IMMATURE PLATELET FRACTION % 5.3 % Normal 0.8-6.3 [facility] Comment on above: Performed By: #### L [id number] ####[facility] ([facility])[address] [place] [address] MCH (RBC) [Entitic mass] 30.6 pg Normal 27.0-33.0 [facility] Comment on above: Performed By: #### L [id number] ####[facility] ([facility])[address] [place] [address] MCV (RBC) [Entitic vol] 91.8 fL Normal 82.0-98.0 [facility] Comment on above: Performed By: #### L [id number] ####[facility] ([facility])[address] [place] [address] PLATELETS (10*3/UL) IN BLOOD AUTOMATED COUNT 141 10*3/uL Low 150-400 [facility] Comment on above: Performed By: #### L [id number] ####[facility] ([facility])[address] [place] [address] RBC (Bld) [#/Vol] 2.55 10*6/uL Low 4.20-5.70 [facility] Comment on above: Performed By: #### L [id number] ####[facility] [place] [address] WBC (Bld) [#/Vol] 9.47 10*3/uL Normal 4.00-10.60 [facility] Comment on above: Performed By: #### L [id number] ####[facility] ([facility])[address] [place] [address] MAGNESIUMon 08-20-2024 Magnesium [Mass/Vol] 2.1 mg/dL Normal 1.9-2.7 [facility] Comment on above: Performed By: #### L [id number] ####[facility] ([facility])[address] [place] [address] POCT GLUCOSE METER UNSOLICIT ED RESULTSon 08-20-2024 Glucose [Mass/Vol] 103 mg/dL Normal 70-105 [facility] Comment on above: Order Comment: Waive d Testing in the ED is performed under the ED CLIA certificate #[id number]. Result Comment: [email or web address] Performed By: #### L [id number] ####[facility] ([facility])[address] [place] [address] Glucose [Mass/Vol] 113 mg/dL High 70-105 [facility] Comment on above: Order Comment: Waive d Testing in the ED is performed under the ED CLIA certificate #[id number]. Result Comment: ebol tz Performed By: #### L [id number] ####[facility] ([facility])[address] [place] [address] Glucose [Mass/Vol] 161 mg/dL High 70-105 [facility] Comment on above: Order Comment: Waive d Testing in the ED is performed under the ED CLIA certificate #[id number]. Result Comment: ebol tz Performed By: #### L [id number] ####[facility] ([facility])[address] [place] [address] Glucose [Mass/Vol] 122 mg/dL High 70-105 [facility] Comment on above: Order Comment: Waive d Testing in the ED is performed under the ED CLIA certificate #[id number]. Result Comment: ebol tz Performed By: #### L [id number] ####[facility] ([facility] [place] [address] 30on 08-19-2024 30 Normal [facility] 30 Normal [facility] 30 Normal [facility] BASIC METABOLIC PANELon - Anion gap [Moles/Vol] 8 mmol/L Normal 7-20 [facility] Comment on above: Performed By: #### L [id number] ####[facility] ([facility])[address] [place] [address] Calcium [Mass/Vol] 8.1 mg/dL Low 8.6-10.3 [facility] Comment on above: Performed By: #### L [id number] ####[facility] ([facility] [place] [address] Chloride [Moles/Vol] 99 mmol/L Normal 98-107 [facility] Comment on above: Performed By: #### L [id number] ####[facility] ([facility] [place] [address] CO2 [Moles/Vol] 31 mmol/L Normal 21-31 [facility] Comment on above: Performed By: #### L [id number] ####[facility] ([facility] [place] [address] Creatinine [Mass/Vol] 0.81 mg/dL Normal 0.70-1.30 [facility] Comment on above: Performed By: #### L [id number] ####[facility] ([facility] [place] [address] GLOMERULAR FILTRATION RATE ML/MIN/1.73 SQ M.PREDICTED 92.5 mL/min/1.73m*2 Normal >60.0 [facility] Comment on above: Result Comment: The [facility]???s estimated glomerular filtration rate (eGFR) will no longer include consideration of race in its calculation. The National Kidney Foundation???s eGFR Task Force developed new recommendations for the estimation of the glomerular filtration rate in the [place] They recommend immediate implementation of the new equation refit without the race variable in all laboratories because the calculation does not include race. In addition to not including race in the calculation and reporting, it included diversity in its development, and has acceptable performance characteristics and potential consequences that do not disproportionately affect any one group of individuals. Performed By: #### L [id number] ####[facility] ([facility])[address] [place] [address] Glucose [Mass/Vol] 115 mg/dL High 70-100 [facility] Comment on above: Performed By: #### L [id number] ####[facility] ([facility])[address] [place] [address] Potassium [Moles/Vol] 3.9 mmol/L Normal 3.5-5.1 [facility] Comment on above: Performed By: #### L [id number] ####[facility] ([facility])[address] [place] [address] Sodium [Moles/Vol] 134 mmol/L Low 136-145 [facility] Comment on above: Performed By: #### L [id number] ####[facility] ([facility])[address] [place] [address] Urea nitrogen [Mass/Vol] 28 mg/dL High 7-25 [facility] Comment on above: Performed By: #### L [id number] ####[facility] ([facility])[address] [place] [address] UREA NITROGEN/CREATININE (MASS RATIO) IN SER/PLAS 34.6 Normal [facility] Comment on above: Performed By: #### L [id number] ####[facility] ([facility])[address] [place] [address] Anion gap [Moles/Vol] 8 mmol/L Normal 7-20 [facility] Comment on above: Performed By: #### L [id number] ####[facility] ([facility])[address] [place] [address] Calcium [Mass/Vol] 8.0 mg/dL Low 8.6-10.3 [facility] Comment on above: Performed By: #### L [id number] ####[facility] ([facility])[address] [place] [address] Chloride [Moles/Vol] 101 mmol/L Normal 98-107 [facility] Comment on above: Performed By: #### L [id number] ####[facility] ([facility])[address] [place] [address] CO2 [Moles/Vol] 29 mmol/L Normal 21-31 [facility] Comment on above: Performed By: #### L [id number] ####[facility] ([facility])[address] [place] [address] Creatinine [Mass/Vol] 0.76 mg/dL Normal 0.70-1.30 [facility] Comment on above: Performed By: #### L [id number] ####[facility] ([facility])[address] [place] [address] GLOMERULAR FILTRATION RATE ML/MIN/1.73 SQ M.PREDICTED 94.3 mL/min/1.73m*2 Normal >60.0 [facility] Comment on above: Result Comment: The [facility]???s estimated glomerular filtration rate (eGFR) will no longer include consideration of race in its calculation. The National Kidney Foundation???s eGFR Task Force developed new recommendations for the estimation of the glomerular filtration rate in the [place] They recommend immediate implementation of the new equation refit without the race variable in all laboratories because the calculation does not include race. In addition to not including race in the calculation and reporting, it included diversity in its development, and has acceptable performance characteristics and potential consequences that do not disproportionately affect any one group of individuals. Performed By: #### L [id number] ####[facility] ([facility])[address] [place] [address] Glucose [Mass/Vol] 116 mg/dL High 70-100 [facility] Comment on above: Performed By: #### L [id number] ####[facility] ([facility])[address] [place] [address] Potassium [Moles/Vol] 4.1 mmol/L Normal 3.5-5.1 [facility] Comment on above: Performed By: #### L [id number] ####[facility] ([facility])[address] [place] [address] Sodium [Moles/Vol] 134 mmol/L Low 136-145 [facility] Comment on above: Performed By: #### L [id number] ####[facility] ([facility])[address] [place] [address] Urea nitrogen [Mass/Vol] 26 mg/dL High 7-25 [facility] Comment on above: Performed By: #### L [id number] ####[facility] ([facility])[address] [place] [address] UREA NITROGEN/CREATININE (MASS RATIO) IN SER/PLAS 34.2 Normal [facility] Comment on above: Performed By: #### L [id number] ####[facility] ([facility])[address] [place] [address] CBCon 08-19-2024 Erythrocyte distribution width (RBC) [Ratio] 13.3 % Normal 11.5-15.0 [facility] Comment on above: Performed By: #### L [id number] ####[facility] ([facility])[address] [place] [address] ERYTHROCYTE MEAN CORPUSCULAR HEMOGLOBIN CONCENTRATION (G/DL) BY AUTOMATED 32.5 g/dL Normal 32.0-35.0 [facility] Comment on above: Performed By: #### L [id number] ####[facility] ([facility])[address] [place] [address] Hematocrit (Bld) [Volume fraction] 26.5 % Low 39.0-50.0 [facility] Comment on above: Performed By: #### L [id number] ####[facility] ([facility])[address] [place] [address] Hemoglobin (Bld) [Mass/Vol] 8.6 g/dL Low 13.0-17.0 [facility] Comment on above: Performed By: #### L [id number] ####[facility] ([facility])[address] [address] IMMATURE PLATELET FRACTION % 5.6 % Normal 0.8-6.3 [facility] Comment on above: Performed By: #### L [id number] ####[facility] ([facility])[address] [place] [address] MCH (RBC) [Entitic mass] 30.4 pg Normal 27.0-33.0 [facility] Comment on above: Performed By: #### L [id number] ####[facility] ([facility])[address] [address] MCV (RBC) [Entitic vol] 93.6 fL Normal 82.0-98.0 [facility] Comment on above: Performed By: #### L [id number] ####[facility] ([facility])[address] [place] [address] PLATELETS (10*3/UL) IN BLOOD AUTOMATED COUNT 128 10*3/uL Low 150-400 [facility] Comment on above: Performed By: #### L [id number] ####[facility] ([facility])[address] [place] [address] RBC (Bld) [#/Vol] 2.83 10*6/uL Low 4.20-5.70 [facility] Comment on above: Performed By: #### L [id number] ####[facility] ([facility])[address] [place] [address] WBC (Bld) [#/Vol] 12.06 10*3/uL High 4.00-10.60 [facility] Comment on above: Performed By: #### L [id number] ####[facility] ([facility])[address] [place] [address] CONSULTon 08-19-2024 CONSULT Normal [facility] MAGNESIUMon 08-19-2024 Magnesium [Mass/Vol] 2.1 mg/dL Normal 1.9-2.7 [facility] Comment on above: Performed By: #### L [id number] ####[facility] ([facility])[address] [place] [address] Magnesium [Mass/Vol] 2.2 mg/dL Normal 1.9-2.7 [facility] Comment on above: Performed By: #### L [id number] ####[facility] ([facility])[address] [place] [address] POCT GLUCOSE METER UNSOLICIT ED RESULTSon 08-19-2024 Glucose [Mass/Vol] 168 mg/dL High 70-105 [facility] Comment on above: Order Comment: Waive d Testing in the ED is performed under the ED CLIA certificate #[id number]. Result Comment: [email or web address] Performed By: #### L [id number] ####[facility] ([facility])[address] [place] [address] Glucose [Mass/Vol] 125 mg/dL High 70-105 [facility] Comment on above: Order Comment: Waive d Testing in the ED is performed under the ED CLIA certificate #[id number]. Result Comment: [email or web address] Performed By: #### L [id number] ####[facility] ([facility])[address] [place] [address] Glucose [Mass/Vol] 136 mg/dL High 70-105 [facility] Comment on above: Order Comment: Waive d Testing in the ED is performed under the ED CLIA certificate #[id number]. Result Comment: [email or web address] Performed By: #### L [id number] ####[facility] ([facility])[address] [place] [address] 30on 08-18-2024 30 Normal [facility] 30 Normal [facility] BASIC METABOLIC PANELon 03-3 Anion gap [Moles/Vol] 9 mmol/L Normal 7-20 [facility] Comment on above: Performed By: #### L [id number] ####[facility] ([facility])[address] [place] [address] Calcium [Mass/Vol] 8.2 mg/dL Low 8.6-10.3 [facility] Comment on above: Performed By: #### L [id number] ####[facility] ([facility])[address] [place] [address] Chloride [Moles/Vol] 102 mmol/L Normal 98-107 [facility] Comment on above: Performed By: #### L [id number] ####[facility] ([facility])[address] [place] [address] CO2 [Moles/Vol] 29 mmol/L Normal 21-31 [facility] Comment on above: Performed By: #### L [id number] ####[facility] ([facility])[address] [place] [address] Creatinine [Mass/Vol] 1.09 mg/dL Normal 0.70-1.30 [facility] Comment on above: Performed By: #### L [id number] ####[facility] ([facility])[address] [place] [address] GLOMERULAR FILTRATION RATE ML/MIN/1.73 SQ M.PREDICTED 71.2 mL/min/1.73m*2 Normal >60.0 [facility] Comment on above: Result Comment: The [facility]???s estimated glomerular filtration rate (eGFR) will no longer include consideration of race in its calculation. The National Kidney Foundation???s eGFR Task Force developed new recommendations for the estimation of the glomerular filtration rate in the [place] They recommend immediate implementation of the new equation refit without the race variable in all laboratories because the calculation does not include race. In addition to not including race in the calculation and reporting, it included diversity in its development, and has acceptable performance characteristics and potential consequences that do not disproportionately affect any one group of individuals. Performed By: #### L [id number] ####[facility] ([facility])[address] [place] [address] Glucose [Mass/Vol] 145 mg/dL High 70-100 [facility] Comment on above: Performed By: #### L [id number] ####[facility] ([facility])[address] [place] [address] Potassium [Moles/Vol] 4.8 mmol/L Normal 3.5-5.1 [facility] Comment on above: Performed By: #### L [id number] ####[facility] ([facility])[address] [place] [address] Sodium [Moles/Vol] 135 mmol/L Low 136-145 [facility] Comment on above: Performed By: #### L [id number] ####[facility] ([facility])[address] [place] [address] Urea nitrogen [Mass/Vol] 27 mg/dL High 7-25 [facility] Comment on above: Performed By: #### L [id number] ####[facility] ([facility])[address] [place] [address] UREA NITROGEN/CREATININE (MASS RATIO) IN SER/PLAS 24.8 Normal [facility] Comment on above: Performed By: #### L [id number] ####[facility] ([facility])[address] [place] [address] CALCIUMon 08-18-2024 Calcium [Mass/Vol] 8.2 mg/dL Low 8.6-10.3 [facility] Comment on above: Performed By: #### L [id number] ####[facility] ([facility])[address] [place] [address] CBCon 08-18-2024 Erythrocyte distribution width (RBC) [Ratio] 13.5 % Normal 11.5-15.0 [facility] Comment on above: Performed By: #### L [id number] ####[facility] ([facility])[address] [place] [address] ERYTHROCYTE MEAN CORPUSCULAR HEMOGLOBIN CONCENTRATION (G/DL) BY AUTOMATED 33.0 g/dL Normal 32.0-35.0 [facility] Comment on above: Performed By: #### L [id number] ####[facility] ([facility])[address] [place] [address] Hematocrit (Bld) [Volume fraction] 26.7 % Low 39.0-50.0 [facility] Comment on above: Performed By: #### L [id number] ####[facility] ([facility])[address] [place] [address] Hemoglobin (Bld) [Mass/Vol] 8.8 g/dL Low 13.0-17.0 [facility] Comment on above: Performed By: #### L [id number] ####[facility] ([facility])[address] [place] [address] IMMATURE PLATELET FRACTION % 4.0 % Normal 0.8-6.3 [facility] Comment on above: Performed By: #### L [id number] ####[facility] ([facility])[address] [place] [address] MCH (RBC) [Entitic mass] 30.4 pg Normal 27.0-33.0 [facility] Comment on above: Performed By: #### L [id number] ####[facility] ([facility])[address] [place] [address] MCV (RBC) [Entitic vol] 92.4 fL Normal 82.0-98.0 [facility] Comment on above: Performed By: #### L [id number] ####[facility] ([facility])[address] [place] [address] PLATELETS (10*3/UL) IN BLOOD AUTOMATED COUNT 124 10*3/uL Low 150-400 [facility] Comment on above: Performed By: #### L [id number] ####[facility] ([facility])[address] [place] [address] RBC (Bld) [#/Vol] 2.89 10*6/uL Low 4.20-5.70 [facility] Comment on above: Performed By: #### L [id number] ####[facility] ([facility])[address] [place] [address] WBC (Bld) [#/Vol] 12.74 10*3/uL High 4.00-10.60 [facility] Comment on above: Performed By: #### L [id number] ####[facility] ([facility])[address] [place] [address] MAGNESIUMon 08-18-2024 Magnesium [Mass/Vol] 2.2 mg/dL Normal 1.9-2.7 [facility] Comment on above: Performed By: #### L [id number] ####[facility] ([facility])[address] [place] [address] Magnesium [Mass/Vol] 2.1 mg/dL Normal 1.9-2.7 [facility] Comment on above: Performed By: #### L [id number] ####[facility] ([facility])[address] [place] [address] PHOSPHORUSon 08-18-2024 Magnesium [Mass/Vol] 3.2 mg/dL Normal 2.5-5.0 [facility] Comment on above: Order Comment: Reche ck Phosphorus level 2 hours after infusion. Performed By: #### L [id number] ####[facility] ([facility])[address] [place] [address] POCT GLUCOSE METER UNSOLICIT ED RESULTSon 08-18-2024 Glucose [Mass/Vol] 138 mg/dL High 70-105 [facility] Comment on above: Order Comment: Waive d Testing in the ED is performed under the ED CLIA certificate #[id number]. Result Comment: [email or web address] Performed By: #### L [id number] ####[facility] ([facility])[address] [place] [address] Glucose [Mass/Vol] 161 mg/dL High 70-105 [facility] Comment on above: Order Comment: Waive d Testing in the ED is performed under the ED CLIA certificate #[id number]. Result Comment: [email or web address] lso Performed By: #### L [id number] ####[facility] ([facility])[address] [place] [address] Glucose [Mass/Vol] 170 mg/dL High 70-105 [facility] Comment on above: Order Comment: Waive d Testing in the ED is performed under the ED CLIA certificate #[id number]. Result Comment: [email or web address] lso Performed By: #### L [id number] ####[facility] ([facility])[address] [place] [address] Glucose [Mass/Vol] 158 mg/dL High 70-105 [facility] Comment on above: Order Comment: Waive d Testing in the ED is performed under the ED CLIA certificate #[id number]. Result Comment: [email or web address] Performed By: #### L [id number] ####[facility] ([facility])[address] [place] [address] Glucose [Mass/Vol] 161 mg/dL High 70-105 [facility] Comment on above: Order Comment: Waive d Testing in the ED is performed under the ED CLIA certificate #[id number]. Result Comment: [email or web address] Performed By: #### L [id number] ####[facility] ([facility])[address] [place] [address] POTASSIUMon 08-18-2024 Potassium [Moles/Vol] 4.6 mmol/L Normal 3.5-5.1 [facility] Comment on above: Order Comment: Reche ck Potassium level 2 hours after infusion. Performed By: #### L [id number] ####[facility] ([facility])[address] [place] [address] 30on 08-17-2024 30 Normal [facility] 30 Normal [facility] APTTon 08-17-2024 ACTIVATED PARTIAL THROMBOPLASTIN TIME IN PPP BY COAGULATION ASSAY 28.8 Seconds Normal 25.0-35.0 [facility] Comment on above: Result Comment: Clin ical significance of the APTT is questionable in the presence of heparin. Performed By: #### L [id number] ####[facility] ([facility])[address] [place] [address] ARTERIAL BLOOD GAS WITH CO-O XIMETRYon 08-17-2024 Base excess Calc (Bld) [Moles/Vol] 0.8 mmol/L Normal -2.0-3.0 [facility] Comment on above: Performed By: #### L [id number] ####[facility] [id number] [place] [address] [facility] CARBOXYHEMOGLOBIN/HE MOGLOBIN TOTAL % IN BLOOD 1.1 % Normal 0.0-3.0 [facility] Comment on above: Performed By: #### L [id number] ####[facility] [id number] [facility] [place] [address] [place] CO2 (Bld) [Partial pressure] 47 mm[Hg] Normal 35-48 [facility] Comment on above: Performed By: #### L [id number] ####[facility] RESPIR[facility] [id number] [facility] [place] [address] [facility] DEOXYGENATED HEMOGLOBIN IN BLOOD 2.1 % Normal 1-5 [facility] Comment on above: Performed By: #### L [id number] ####[facility] RESPIRATORY [id number] [facility] [address] [place] FIO2 36 % Normal [facility] Comment on above: Performed By: #### L [id number] ####[facility] RESPIR[facility] [id number] [place] [place] [address] [place] HCO3 (Bld) [Moles/Vol] 26.6 mmol/L Normal 21.0-28.0 [facility] Comment on above: Performed By: #### L [id number] ####[facility]PIR[facility] [id number] [place] [address] [place] Hemoglobin (Bld) [Mass/Vol] 10.1 g/dL Low 11.7-17.4 [facility] Comment on above: Performed By: #### L [id number] ####[facility] [id number] [place] [address] [place] LPM 4 Normal [facility] Comment on above: Performed By: #### L [id number] ####[facility] RESPIR[facility] [id number] [place] [address] [facility] METHEMOGLOBIN/100 IN BLOOD 1.1 % Normal 0.0-1.5 [facility] Comment on above: Performed By: #### L [id number] ####[facility] RESPIRAT[facility] [id number] [place] [address] [facility] Oxygen (Bld) [Partial pressure] 86 mm[Hg] Normal 83-100 [facility] Comment on above: Performed By: #### L [id number] ####[facility] RESPIR[facility] [id number] [place] [address] [facility] OXYGEN SATURATION (%) IN ARTERIAL BLOOD 97.9 % Normal 94.0-98.0 [facility] Comment on above: Performed By: #### L [id number] ####[facility] RESPIR[facility] [id number] [place] [address] [facility] OXYGENATED HEMOGLOBIN IN BLOOD 95.6 % High 90.0-95.0 [facility] Comment on above: Performed By: #### L [id number] ####[facility] RESPIR[facility] [id number] [place] [address] [facility] pH (Bld) 7.36 [pH] Normal 7.35-7.45 [facility] Comment on above: Performed By: #### L [id number] ####[facility] RESPIRAT[facility] [id number] [place] [address] [facility] SOURCE OF OXYGEN Nasal cannula Normal [facility] Comment on above: Performed By: #### L [id number] ####[facility] RESPIRAT[facility] [id number] [place] [address] [facility] BASIC METABOLIC PANELon 03-2 Anion gap [Moles/Vol] 11 mmol/L Normal 7-20 [facility] Comment on above: Performed By: #### L [id number] ####[facility] HOSPITAL LAB (BEAKER)[address] [place] [address] Calcium [Mass/Vol] 8.3 mg/dL Low 8.6-10.3 [facility] Comment on above: Performed By: #### L [id number] ####[facility] (BEAKER)[address] [place] [address] Chloride [Moles/Vol] 102 mmol/L Normal 98-107 [facility] Comment on above: Performed By: #### L [id number] ####[facility] ([facility])[address] [place] [address] CO2 [Moles/Vol] 28 mmol/L Normal 21-31 [facility] Comment on above: Performed By: #### L [id number] ####[facility] ([facility])[address] [place] [address] Creatinine [Mass/Vol] 1.13 mg/dL Normal 0.70-1.30 [facility] Comment on above: Performed By: #### L [id number] ####[facility] ([facility])[address] [place] [address] GLOMERULAR FILTRATION RATE ML/MIN/1.73 SQ M.PREDICTED 68.2 mL/min/1.73m*2 Normal >60.0 [facility] Comment on above: Result Comment: The [facility]???s estimated glomerular filtration rate (eGFR) will no longer include consideration of race in its calculation. The National Kidney Foundation???s eGFR Task Force developed new recommendations for the estimation of the glomerular filtration rate in the [place] They recommend immediate implementation of the new equation refit without the race variable in all laboratories because the calculation does not include race. In addition to not including race in the calculation and reporting, it included diversity in its development, and has acceptable performance characteristics and potential consequences that do not disproportionately affect any one group of individuals. Performed By: #### L [id number] ####[facility] ([facility] [place] [address] Glucose [Mass/Vol] 166 mg/dL High 70-100 [facility] Comment on above: Performed By: #### L [id number] ####[facility] ([facility] [place] [address] Potassium [Moles/Vol] 4.3 mmol/L Normal 3.5-5.1 [facility] Comment on above: Performed By: #### L [id number] ####[facility] HOSPITAL LAB (BEAKER)[address] [place] [address] Sodium [Moles/Vol] 137 mmol/L Normal 136-145 [facility] Comment on above: Performed By: #### L [id number] ####[facility] HOSPITAL LAB (BEAKER)[address] [place] [address] Urea nitrogen [Mass/Vol] 24 mg/dL Normal 7-25 [facility] Comment on above: Performed By: #### L [id number] ####[facility] (BEAKER)[address] [place] [address] UREA NITROGEN/CREATININE (MASS RATIO) IN SER/PLAS 21.2 Normal [facility] Comment on above: Performed By: #### L [id number] ####[facility] (BEAKER)[address] [place] [address] Anion gap [Moles/Vol] 10 mmol/L Normal 7-20 [facility] Comment on above: Performed By: #### L [id number] ####[facility] (BEAKER)[address] [place] [address] Calcium [Mass/Vol] 8.4 mg/dL Low 8.6-10.3 [facility] Comment on above: Performed By: #### L [id number] ####[facility] HOSPITAL LAB (BEAKER)[address] [place] [address] Chloride [Moles/Vol] 107 mmol/L Normal 98-107 [facility] Comment on above: Performed By: #### L [id number] ####[facility] HOSPITAL LAB (BEAKER)[address] [place] [address] CO2 [Moles/Vol] 28 mmol/L Normal 21-31 [facility] Comment on above: Performed By: #### L [id number] ####[facility] HOSPITAL LAB (BEAKER)[address] [place] [address] Creatinine [Mass/Vol] 1.16 mg/dL Normal 0.70-1.30 [facility] Comment on above: Performed By: #### L [id number] ####[facility] ([facility])[address] [place] [address] GLOMERULAR FILTRATION RATE ML/MIN/1.73 SQ M.PREDICTED 66.1 mL/min/1.73m*2 Normal >60.0 [facility] Comment on above: Result Comment: The [facility]???s estimated glomerular filtration rate (eGFR) will no longer include consideration of race in its calculation. The National Kidney Foundation???s eGFR Task Force developed new recommendations for the estimation of the glomerular filtration rate in the [place] They recommend immediate implementation of the new equation refit without the race variable in all laboratories because the calculation does not include race. In addition to not including race in the calculation and reporting, it included diversity in its development, and has acceptable performance characteristics and potential consequences that do not disproportionately affect any one group of individuals. Performed By: #### L [id number] ####[facility] ([facility])[address] [place] [address] Glucose [Mass/Vol] 167 mg/dL High 70-100 [facility] Comment on above: Performed By: #### L [id number] ####[facility] ([facility])[address] [place] [address] Potassium [Moles/Vol] 4.2 mmol/L Normal 3.5-5.1 [facility] Comment on above: Performed By: #### L [id number] ####[facility] ([facility])[address] [place] [address] Sodium [Moles/Vol] 141 mmol/L Normal 136-145 [facility] Comment on above: Performed By: #### L [id number] ####[facility] ([facility])[address] [place] [address] Urea nitrogen [Mass/Vol] 21 mg/dL Normal 7-25 [facility] Comment on above: Performed By: #### L [id number] ####[facility] ([facility])[address] [place] [address] UREA NITROGEN/CREATININE (MASS RATIO) IN SER/PLAS 18.1 Normal [facility] Comment on above: Performed By: #### L [id number] ####[facility] HOSPITAL LAB (BEAKER)[address] [place] [address] CALCIUM, IONIZEDon CALCIUM IONIZED (MMOL/L) IN BLOOD 1.13 mmol/L Low 1.15-1.33 [facility] Comment on above: Performed By: #### L [id number] ####[facility] RESPIRAT[facility] [id number] [place] [address] [facility] CALCIUM IONIZED (MMOL/L) IN BLOOD 1.26 mmol/L Normal 1.15-1.33 [facility] Comment on above: Performed By: #### C ALCIUM, IONIZED ####[facility] RESPIR[facility] [id number] [place] [address] [facility] CBCon 08-17-2024 Erythrocyte distribution width (RBC) [Ratio] 13.5 % Normal 11.5-15.0 [facility] Comment on above: Performed By: #### L [id number] ####[facility] HOSPITAL LAB (BEAKER)[address] [place] [address] ERYTHROCYTE MEAN CORPUSCULAR HEMOGLOBIN CONCENTRATION (G/DL) BY AUTOMATED 34.1 g/dL Normal 32.0-35.0 [facility] Comment on above: Performed By: #### L [id number] ####[facility] (BEAKER)[address] [place] [address] Hematocrit (Bld) [Volume fraction] 26.7 % Low 39.0-50.0 [facility] Comment on above: Performed By: #### L [id number] ####[facility] HOSPITAL LAB (BEAKER)[address] [place] [address] Hemoglobin (Bld) [Mass/Vol] 9.1 g/dL Low 13.0-17.0 [facility] Comment on above: Performed By: #### L [id number] ####[facility] HOSPITAL LAB (BEAKER)[address] [place] [address] IMMATURE PLATELET FRACTION % 3.5 % Normal 0.8-6.3 [facility] Comment on above: Performed By: #### L [id number] ####[facility] HOSPITAL LAB (BEAKER)[address] [place] [address] MCH (RBC) [Entitic mass] 30.3 pg Normal 27.0-33.0 [facility] Comment on above: Performed By: #### L [id number] ####[facility] (BEAKER)[address] [place] [address] MCV (RBC) [Entitic vol] 89.0 fL Normal 82.0-98.0 [facility] Comment on above: Performed By: #### L [id number] ####[facility] LAB (BEAKER)[address] [place] [address] PLATELETS (10*3/UL) IN BLOOD AUTOMATED COUNT 135 10*3/uL Low 150-400 [facility] Comment on above: Performed By: #### L [id number] ####[facility] ([facility] [place] [address] RBC (Bld) [#/Vol] 3.00 10*6/uL Low 4.20-5.70 [facility] Comment on above: Performed By: #### L [id number] ####[facility] (BEAKER)[address] [place] [address] WBC (Bld) [#/Vol] 15.49 10*3/uL High 4.00-10.60 [facility] Comment on above: Performed By: #### L [id number] ####[facility] (BEAKER)[address] [place] [address] Erythrocyte distribution width (RBC) [Ratio] 13.2 % Normal 11.5-15.0 [facility] Comment on above: Performed By: #### L [id number] ####[facility] (BEAKER)[address] [place] [address] ERYTHROCYTE MEAN CORPUSCULAR HEMOGLOBIN CONCENTRATION (G/DL) BY AUTOMATED 33.6 g/dL Normal 32.0-35.0 [facility] Comment on above: Performed By: #### L [id number] ####[facility] ([facility] [place] [address] Hematocrit (Bld) [Volume fraction] 28.6 % Low 39.0-50.0 [facility] Comment on above: Performed By: #### L [id number] ####[facility] ([facility])[address] [place] [address] Hemoglobin (Bld) [Mass/Vol] 9.6 g/dL Low 13.0-17.0 [facility] Comment on above: Performed By: #### L [id number] ####[facility] ([facility])[address] [place] [address] MCH (RBC) [Entitic mass] 30.4 pg Normal 27.0-33.0 [facility] Comment on above: Performed By: #### L [id number] ####[facility] ([facility])[address] [place] [address] MCV (RBC) [Entitic vol] 90.5 fL Normal 82.0-98.0 [facility] Comment on above: Performed By: #### L [id number] ####[facility] ([facility])[address] [place] [address] PLATELETS (10*3/UL) IN BLOOD AUTOMATED COUNT 161 10*3/uL Normal 150-400 [facility] Comment on above: Performed By: #### L [id number] ####[facility] ([facility])[address] [place] [address] RBC (Bld) [#/Vol] 3.16 10*6/uL Low 4.20-5.70 [facility] Comment on above: Performed By: #### L [id number] ####[facility] ([facility])[address] [place] [address] WBC (Bld) [#/Vol] 14.46 10*3/uL High 4.00-10.60 [facility] Comment on above: Performed By: #### L [id number] ####[facility] ([facility])[address] [place] [address] CONSULTon 08-17-2024 CONSULT Normal [facility] LACTIC ACID WITH 4 HOUR REFL EXon 08-17-2024 LACTATE (MMOL/L) IN SER/PLAS 2.8 mmol/L Critically high 0.5-2.2 [facility] Comment on above: Performed By: #### L [id number] ####[facility] ([facility])[address] [place] [address] LACTIC ACID, PLASMAon 2024 LACTATE (MMOL/L) IN SER/PLAS 2.6 mmol/L Critically high 0.5-2.2 [facility] Comment on above: Result Comment: Prev ious result verified on 08/17/2024 0343 on specimen/case [id number] called with component Lactate blood venous for procedure Lactic acid with 4 hour reflex with value 2.8 mmol/L. Performed By: #### L [id number] ####[facility] ([facility])[address] [place] [address] MAGNESIUMon 08-17-2024 Magnesium [Mass/Vol] 1.9 mg/dL Normal 1.9-2.7 [facility] Comment on above: Performed By: #### L [id number] ####[facility] ([facility])[address] [place] [address] Magnesium [Mass/Vol] 2.0 mg/dL Normal 1.9-2.7 [facility] Comment on above: Performed By: #### L [id number] ####[facility] ([facility])[address] [place] [address] PHOSPHORUSon 08-17-2024 Magnesium [Mass/Vol] 3.9 mg/dL Normal 2.5-5.0 [facility] Comment on above: Performed By: #### L [id number] ####[facility] ([facility])[address] [place] [address] Magnesium [Mass/Vol] 3.4 mg/dL Normal 2.5-5.0 [facility] Comment on above: Performed By: #### L [id number] ####[facility] HOSPITAL LAB ([facility])[address] [place] [address] POCT GLUCOSE METER UNSOLICIT ED RESULTSon 08-17-2024 Glucose [Mass/Vol] 187 mg/dL High 70-105 [facility] Comment on above: Order Comment: Waive d Testing in the ED is performed under the ED CLIA certificate #[id number]. Result Comment: [email or web address] Performed By: #### L [id number] ####[facility] ([facility])[address] [place] [address] Glucose [Mass/Vol] 169 mg/dL High 70-105 [facility] Comment on above: Order Comment: Waive d Testing in the ED is performed under the ED CLIA certificate #[id number]. Result Comment: isim [email or web address] Performed By: #### L [id number] ####[facility] ([facility])[address] [place] [address] Glucose [Mass/Vol] 150 mg/dL High 70-105 [facility] Comment on above: Order Comment: Waive d Testing in the ED is performed under the ED CLIA certificate #[id number]. Result Comment: isim [email or web address] Performed By: #### L [id number] ####[facility] ([facility])[address] [place] [address] Glucose [Mass/Vol] 165 mg/dL High 70-105 [facility] Comment on above: Order Comment: Waive d Testing in the ED is performed under the ED CLIA certificate #[id number]. Result Comment: isim [email or web address] Performed By: #### L [id number] ####[facility] HOSPITAL LAB ([facility])[address] [place] [address] Glucose [Mass/Vol] 157 mg/dL High 70-105 [facility] Comment on above: Order Comment: Waive d Testing in the ED is performed under the ED CLIA certificate #[id number]. Result Comment: isim [email or web address] Performed By: #### L [id number] ####[facility] HOSPITAL LAB (BEAKER)[address] [place] [address] Glucose [Mass/Vol] 148 mg/dL High 70-105 [facility] Comment on above: Order Comment: Waive d Testing in the ED is performed under the ED CLIA certificate #[id number]. Result Comment: isim [email or web address] Performed By: #### L [id number] ####[facility] HOSPITAL LAB (BEAKER)[address] [place] [address] Glucose [Mass/Vol] 154 mg/dL High 70-105 [facility] Comment on above: Order Comment: Waive d Testing in the ED is performed under the ED CLIA certificate #[id number]. Result Comment: [email or web address] Performed By: #### L [id number] ####[facility] HOSPITAL LAB (BEAKER)[address] [place] [address] Glucose [Mass/Vol] 169 mg/dL High 70-105 [facility] Comment on above: Order Comment: Waive d Testing in the ED is performed under the ED CLIA certificate #[id number]. Result Comment: [email or web address] Performed By: #### L [id number] ####[facility] HOSPITAL LAB (BEAKER)[address] [place] [address] Glucose [Mass/Vol] 159 mg/dL High 70-105 [facility] Comment on above: Order Comment: Waive d Testing in the ED is performed under the ED CLIA certificate #[id number]. Result Comment: [email or web address] Performed By: #### L [id number] ####[facility] HOSPITAL LAB (BEAKER)[address] [place] [address] Glucose [Mass/Vol] 167 mg/dL High 70-105 [facility] Comment on above: Order Comment: Waive d Testing in the ED is performed under the ED CLIA certificate #[id number]. Result Comment: [email or web address] Performed By: #### L [id number] ####[facility] HOSPITAL LAB (BEAKER)[address] [place] [address] Glucose [Mass/Vol] 185 mg/dL High 70-105 [facility] Comment on above: Order Comment: Waive d Testing in the ED is performed under the ED CLIA certificate #[id number]. Result Comment: [email or web address] Performed By: #### L [id number] ####[facility] (BEAKER)[address] [place] [address] Glucose [Mass/Vol] 203 mg/dL High 70-105 [facility] Comment on above: Order Comment: Waive d Testing in the ED is performed under the ED CLIA certificate #[id number]. Result Comment: [email or web address] Performed By: #### L [id number] ####[facility] (BEAKER)[address] [place] [address] POTASSIUM, WHOLE BLOODon Potassium [Moles/Vol] 4.2 mmol/L Normal 3.5-5.1 [facility] Comment on above: Performed By: #### P OTASSIUM, WHOLE BLOOD ####[facility] RESPIRATORY [id number] [place] [address] [place] PROTIME-INRon 08-17-2024 INR IN PPP BY COAGULATION ASSAY 1.16 High 0.90-1.10 [facility] Comment on above: Order Comment: On ar rival to SICU Result Comment: ACCC P RECOMMENDED INR FOR WARFARIN THERAPY CONDITION INRPROPHYLAXIS OF VENOUS THROMBOSIS 2-3(HIGH-RISK SURGERY)TREATMENT OF VENOUS THROMBOSIS 2-3TREATMENT OF PULMONARY EMBOLISM 2-3PREVENTION OF SYSTEMIC EMBOLISM: 2-3 ACUTE MYOCARDIAL INFARCTION TISSUE HEART VALVES VALVULAR HEART DISEASE ATRIAL FIBRILLATION RECURRENT SYSTEMIC EMBOLISMMECHANICAL HEART VALVE 2.5-3.5 FROM: ORAL ANTICOAGULANTS. MECHANISM OF ACTION, CLINICAL EFFECTIVENESS, AND OPTIMAL THERAPEUTIC RANGE. CHEST 1995;108:231S-246S. Performed By: #### L [id number] ####[facility] LAB (BEAKER)[address] [place] [address] PROTHROMBIN TIME (PT) IN PPP BY COAGULATION ASSAY 14.7 Seconds Normal 12.3-14.8 [facility] Comment on above: Order Comment: On ar rival to SICU Performed By: #### L [id number] ####[facility] LAB (BEAKER)[address] [place] [address] SODIUM, WHOLE BLOODon 2024 SODIUM, WHOLE BLOOD 138 Normal 136-145 [facility] Comment on above: Performed By: #### S ODIUM, WHOLE BLOOD ####[facility] RESPIRATORY [id number] [place] [address] [facility] VENOUS BLOOD GAS WITH CO-OXI METRYon 08-17-2024 Base excess Calc (BldV) [Moles/Vol] 1.2 mmol/L Normal [facility] Comment on above: Performed By: #### L [id number] ####[facility] RESPIRATORY [id number] [place] [address] [facility] CARBOXYHEMOGLOBIN/HE MOGLOBIN TOTAL % IN BLOOD 1.2 % Normal [facility] Comment on above: Performed By: #### L [id number] ####[facility] RESPIRATORY [id number] [place] [address] [place] CO2 (BldV) [Partial pressure] 51 mm[Hg] High 40-50 [facility] Comment on above: Performed By: #### L [id number] ####[facility] RESPIRATORY [id number] [place] [address] [facility] HCO3 (Bld) [Moles/Vol] 27.5 mmol/L Normal [facility] Comment on above: Performed By: #### L [id number] ####[facility] RESPIRATORY [id number] [place] [address] [facility] Hemoglobin (Bld) [Mass/Vol] 10.0 g/dL Normal [facility] Comment on above: Performed By: #### L [id number] ####[facility] RESPIRATORY [id number] [place] [address] [facility] METHEMOGLOBIN/100 IN BLOOD 0.8 % Normal 0.0-1.5 [facility] Comment on above: Performed By: #### L [id number] ####[facility] RESPIRATORY [id number] [place] [address] [facility] Oxygen (BldV) [Partial pressure] 37 mm[Hg] Normal 35-45 [facility] Comment on above: Performed By: #### L [id number] ####[facility] RESPIRATORY [id number] [place] [address] [facility] OXYGEN SATURATION (%) IN VENOUS BLOOD 62.8 % Low 65.0-75.0 [facility] Comment on above: Performed By: #### L [id number] ####[facility] RESPIRATORY [id number] [place] [address] [facility] OXYGENATED HEMOGLOBIN IN BLOOD 61.5 % Normal [facility] Comment on above: Performed By: #### L [id number] ####[facility] RESPIRATORY [id number] [place] [address] [facility] PH OF VENOUS BLOOD 7.34 Normal 7.31-7.41 [facility] Comment on above: Performed By: #### L [id number] ####[facility] RESPIRAT[facility] [id number] [place] [address] [facility] VENOUS BLOOD GAS WITH IONIZE D CALCIUMon 08-17-2024 Base excess Calc (BldV) [Moles/Vol] 2.5 mmol/L Normal [facility] Comment on above: Performed By: #### L [id number] ####[facility] RESPIRATORY [id number] [place] [address] [facility] CALCIUM IONIZED (MMOL/L) IN BLOOD 1.28 mmol/L Normal 1.15-1.33 [facility] Comment on above: Performed By: #### L [id number] ####[facility] RESPIRATORY [id number] [place] [address] [facility] CO2 (BldV) [Partial pressure] 53 mm[Hg] High 40-50 [facility] Comment on above: Performed By: #### L [id number] ####[facility] RESPIRATORY [id number] [place] [address] [facility] HCO3 (Bld) [Moles/Vol] 29.3 mmol/L Normal [facility] Comment on above: Performed By: #### L [id number] ####[facility] RESPIRATORY [id number] [place] [address] [facility] Oxygen (BldV) [Partial pressure] 40 mm[Hg] Normal 35-45 [facility] Comment on above: Performed By: #### L [id number] ####[facility]PIR[facility] [id number] [place] [address] [facility] OXYGEN SATURATION (%) IN VENOUS BLOOD 65.7 % Normal 65.0-75.0 [facility] Comment on above: Performed By: #### L [id number] ####[facility]PIR[facility] [id number] [place] [address] [facility] PH OF VENOUS BLOOD 7.35 Normal 7.31-7.41 [facility] Comment on above: Performed By: #### L [id number] ####[facility] RESPIR[facility] [id number] [place] [address] [place] 30on 08-16-2024 30 Normal [facility] ANESon 08-16-2024 ANES Normal [facility] ANTI-XA (HEPARIN LEVEL)on HEPARIN UNFRACTIONATED (U/ML) IN PPP BY CHROMOGENIC METHOD 0.27 IU/mL Low 0.3-0.7 [facility] Comment on above: Order Comment: Check anti-Xa level every 6 hours while on heparin infusion, or per protocol. Result Comment: Cindy roxaban and Apixaban will interfere with the anti Xa assay used to monitor UFH and LMWH. Performed By: #### L [id number] ####[facility] HOSPITAL LAB (BEAKER)[address] [place] [address] APTTon 03-28-2025 ACTIVATED PARTIAL THROMBOPLASTIN TIME IN PPP BY COAGULATION ASSAY 32.6 Seconds Normal 25.0-35.0 [facility] Comment on above: Order Comment: On ar rival to SICU Result Comment: Clin ical significance of the APTT is questionable in the presence of heparin. Performed By: #### L [id number] ####[facility] LAB (BEAKER)[address] [place] [address] ACTIVATED PARTIAL THROMBOPLASTIN TIME IN PPP BY COAGULATION ASSAY 48.1 Seconds High 25.0-35.0 [facility] Comment on above: Result Comment: Clin ical significance of the APTT is questionable in the presence of heparin. Performed By: #### L [id number] ####[facility] LAB (BEAKER)[address] [place] [address] ARTERIAL BLOOD GAS WITH CO-O XIMETRYon 08-16-2024 Base excess Calc (Bld) [Moles/Vol] 0.4 mmol/L Normal -2.0-3.0 [facility] Comment on above: Performed By: #### L [id number] ####[facility] RESPIRATORY [id number] [place] [address] [place] CARBOXYHEMOGLOBIN/HE MOGLOBIN TOTAL % IN BLOOD 1.9 % Normal 0.0-3.0 [facility] Comment on above: Performed By: #### L [id number] ####[facility] RESPIRAT[facility] [id number] [place] [address] [place] CO2 (Bld) [Partial pressure] 56 mm[Hg] Critically high 35-48 [facility] Comment on above: Performed By: #### L [id number] ####[facility] RESPIRATORY [id number] [place] [address] [place] DEOXYGENATED HEMOGLOBIN IN BLOOD 3.2 % Normal 1-5 [facility] Comment on above: Performed By: #### L [id number] ####[facility] RESPIRATORY [id number] [place] [address] [place] HCO3 (Bld) [Moles/Vol] 27.6 mmol/L Normal 21.0-28.0 [facility] Comment on above: Performed By: #### L [id number] ####[facility] RESPIRATORY [id number] [place] [address] [place] Hemoglobin (Bld) [Mass/Vol] 10.7 g/dL Low 11.7-17.4 [facility] Comment on above: Performed By: #### L [id number] ####[facility] RESPIRATORY [id number] [place] [address] [place] LPM 4 Normal [facility] Comment on above: Performed By: #### L [id number] ####[facility] RESPIRATORY [id number] [place] [address] [place] METHEMOGLOBIN/100 IN BLOOD 0.6 % Normal 0.0-1.5 [facility] Comment on above: Performed By: #### L [id number] ####[facility] RESPIRATORY [id number] [place] [address] [facility] Oxygen (Bld) [Partial pressure] 80 mm[Hg] Low 83-100 [facility] Comment on above: Performed By: #### L [id number] ####[facility] RESPIRATORY [id number] [place] [address] [place] OXYGEN SATURATION (%) IN ARTERIAL BLOOD 96.7 % Normal 94.0-98.0 [facility] Comment on above: Performed By: #### L [id number] ####[facility] RESPIRATORY [id number] [place] [address] [place] OXYGENATED HEMOGLOBIN IN BLOOD 94.3 % Normal 90.0-95.0 [facility] Comment on above: Performed By: #### L [id number] ####[facility] RESPIRATORY [id number] [place] [address] [place] pH (Bld) 7.30 [pH] Low 7.35-7.45 [facility] Comment on above: Performed By: #### L [id number] ####[facility] RESPIRATORY [id number] [place] [address] [place] SOURCE OF OXYGEN Nasal cannula Normal [facility] Comment on above: Performed By: #### L [id number] ####[facility] RESPIRATORY [id number] [place] [address] [facility] ARTERIAL BLOOD GAS WITH IONI ZED CALCIUMon 08-16-2024 Base excess Calc (Bld) [Moles/Vol] 0.3 mmol/L Normal -2.0-3.0 [facility] Comment on above: Performed By: #### L [id number] ####[facility] RESPIRATORY [id number] [place] [address] [facility] CALCIUM IONIZED (MMOL/L) IN BLOOD 1.30 mmol/L Normal 1.15-1.33 [facility] Comment on above: Performed By: #### L [id number] ####[facility] RESPIRATORY [id number] [place] [address] [facility] CO2 (Bld) [Partial pressure] 48 mm[Hg] Normal 35-48 [facility] Comment on above: Performed By: #### L [id number] ####[facility] RESPIRATORY [id number] [place] [address] [facility] HCO3 (Bld) [Moles/Vol] 26.5 mmol/L Normal 21.0-28.0 [facility] Comment on above: Performed By: #### L [id number] ####[facility] RESPIRATORY [id number] [place] [address] [facility] LPM 4 Normal [facility] Comment on above: Performed By: #### L [id number] ####[facility] RESPIRATORY [id number] [place] [address] [facility] Oxygen (Bld) [Partial pressure] 70 mm[Hg] Low 83-100 [facility] Comment on above: Performed By: #### L [id number] ####[facility] RESPIRATORY [id number] [place] [address] [place] OXYGEN SATURATION (%) IN ARTERIAL BLOOD 95.0 % Normal 94.0-98.0 [facility] Comment on above: Performed By: #### L [id number] ####[facility] RESPIRATORY [id number] [place] [address] [facility] pH (Bld) 7.35 [pH] Normal 7.35-7.45 [facility] Comment on above: Performed By: #### L [id number] ####[facility] RESPIRATORY [id number] [place] [address] [place] SOURCE OF OXYGEN Nasal cannula Normal [facility] Comment on above: Performed By: #### L [id number] ####[facility] RESPIRATORY [id number] [place] [address] [place] BASIC METABOLIC PANELon - Anion gap [Moles/Vol] 10 mmol/L Normal 7-20 [facility] Comment on above: Performed By: #### L [id number] ####[facility] HOSPITAL LAB (BEAKER)[address] [place] [address] Calcium [Mass/Vol] 8.5 mg/dL Low 8.6-10.3 [facility] Comment on above: Performed By: #### L [id number] ####[facility] LAB (BEAKER)[address] [place] [address] Chloride [Moles/Vol] 108 mmol/L High 98-107 [facility] Comment on above: Performed By: #### L [id number] ####[facility] HOSPITAL LAB (BEAKER)[address] [place] [address] CO2 [Moles/Vol] 27 mmol/L Normal 21- [facility] Comment on above: Performed By: #### L [id number] ####[facility] HOSPITAL LAB (BEAKER)[address] [place] [address] Creatinine [Mass/Vol] 1.08 mg/dL Normal 0.70-1.30 [facility] Comment on above: Performed By: #### L [id number] ####[facility] HOSPITAL LAB (BEAKER)[address] [place] [address] GLOMERULAR FILTRATION RATE ML/MIN/1.73 SQ M.PREDICTED 72.0 mL/min/1.73m*2 Normal >60.0 [facility] Comment on above: Result Comment: The [facility]???s estimated glomerular filtration rate (eGFR) will no longer include consideration of race in its calculation. The National Kidney Foundation???s eGFR Task Force developed new recommendations for the estimation of the glomerular filtration rate in the [place] They recommend immediate implementation of the new equation refit without the race variable in all laboratories because the calculation does not include race. In addition to not including race in the calculation and reporting, it included diversity in its development, and has acceptable performance characteristics and potential consequences that do not disproportionately affect any one group of individuals. Performed By: #### L [id number] ####[facility] ([facility])[address] [place] [address] Glucose [Mass/Vol] 179 mg/dL High 70-100 [facility] Comment on above: Performed By: #### L [id number] ####[facility] ([facility])[address] [place] [address] Potassium [Moles/Vol] 4.4 mmol/L Normal 3.5-5.1 [facility] Comment on above: Performed By: #### L [id number] ####[facility] ([facility])[address] [place] [address] Sodium [Moles/Vol] 141 mmol/L Normal 136-145 [facility] Comment on above: Performed By: #### L [id number] ####[facility] ([facility])[address] [place] [address] Urea nitrogen [Mass/Vol] 18 mg/dL Normal 7-25 [facility] Comment on above: Performed By: #### L [id number] ####[facility] ([facility])[address] [place] [address] UREA NITROGEN/CREATININE (MASS RATIO) IN SER/PLAS 16.7 Normal [facility] Comment on above: Performed By: #### L [id number] ####[facility] ([facility])[address] [place] [address] Anion gap [Moles/Vol] 10 mmol/L Normal 7-20 [facility] Comment on above: Order Comment: On ar rival to SICU Performed By: #### L [id number] ####[facility] ([facility])[address] [place] [address] Calcium [Mass/Vol] 9.1 mg/dL Normal 8.6-10.3 [facility] Comment on above: Order Comment: On ar rival to SICU Performed By: #### L [id number] ####[facility] LAB (BEAKER)[address] [place] [address] Chloride [Moles/Vol] 107 mmol/L Normal 98-107 [facility] Comment on above: Order Comment: On ar rival to SICU Performed By: #### L [id number] ####[facility] [place] [address] CO2 [Moles/Vol] 28 mmol/L Normal 21-31 [facility] Comment on above: Order Comment: On ar rival to SICU Performed By: #### L [id number] ####[facility] ([facility])[address] [place] [address] Creatinine [Mass/Vol] 1.00 mg/dL Normal 0.70-1.30 [facility] Comment on above: Order Comment: On ar rival to SICU Performed By: #### L [id number] ####[facility] ([facility])[address] [place] [address] GLOMERULAR FILTRATION RATE ML/MIN/1.73 SQ M.PREDICTED 79.0 mL/min/1.73m*2 Normal >60.0 [facility] Comment on above: Order Comment: On ar rival to SICU Result Comment: The [facility]???s estimated glomerular filtration rate (eGFR) will no longer include consideration of race in its calculation. The National Kidney Foundation???s eGFR Task Force developed new recommendations for the estimation of the glomerular filtration rate in the [place] They recommend immediate implementation of the new equation refit without the race variable in all laboratories because the calculation does not include race. In addition to not including race in the calculation and reporting, it included diversity in its development, and has acceptable performance characteristics and potential consequences that do not disproportionately affect any one group of individuals. Performed By: #### L [id number] ####[facility] ([facility] [place] [address] Glucose [Mass/Vol] 158 mg/dL High 70-100 [facility] Comment on above: Order Comment: On ar rival to SICU Performed By: #### L [id number] ####[facility] HOSPITAL LAB ([facility] [place] [address] Potassium [Moles/Vol] 4.2 mmol/L Normal 3.5-5.1 [facility] Comment on above: Order Comment: On ar rival to SICU Performed By: #### L [id number] ####[facility] ([facility])[address] [place] [address] Sodium [Moles/Vol] 141 mmol/L Normal 136-145 [facility] Comment on above: Order Comment: On ar rival to SICU Performed By: #### L [id number] ####[facility] ([facility])[address] [place] [address] Urea nitrogen [Mass/Vol] 16 mg/dL Normal 7-25 [facility] Comment on above: Order Comment: On ar rival to SICU Performed By: #### L [id number] ####[facility] ([facility])[address] [place] [address] UREA NITROGEN/CREATININE (MASS RATIO) IN SER/PLAS 16.0 Normal [facility] Comment on above: Order Comment: On ar rival to SICU Performed By: #### L [id number] ####[facility] HOSPITAL LAB ([facility])[address] [place] [address] Anion gap [Moles/Vol] 8 mmol/L Normal 7-20 [facility] Comment on above: Performed By: #### L [id number] ####[facility] HOSPITAL LAB ([facility])[address] [place] [address] Calcium [Mass/Vol] 8.7 mg/dL Normal 8.6-10.3 [facility] Comment on above: Performed By: #### L [id number] ####[facility] HOSPITAL LAB ([facility] [place] [address] Chloride [Moles/Vol] 104 mmol/L Normal 98-107 [facility] Comment on above: Performed By: #### L [id number] ####[facility] ([facility])[address] [place] [address] CO2 [Moles/Vol] 29 mmol/L Normal 21-31 [facility] Comment on above: Performed By: #### L [id number] ####[facility] ([facility])[address] [place] [address] Creatinine [Mass/Vol] 1.01 mg/dL Normal 0.70-1.30 [facility] Comment on above: Performed By: #### L [id number] ####[facility] ([facility])[address] [place] [address] GLOMERULAR FILTRATION RATE ML/MIN/1.73 SQ M.PREDICTED 78.0 mL/min/1.73m*2 Normal >60.0 [facility] Comment on above: Result Comment: The [facility]???s estimated glomerular filtration rate (eGFR) will no longer include consideration of race in its calculation. The National Kidney Foundation???s eGFR Task Force developed new recommendations for the estimation of the glomerular filtration rate in the [place] They recommend immediate implementation of the new equation refit without the race variable in all laboratories because the calculation does not include race. In addition to not including race in the calculation and reporting, it included diversity in its development, and has acceptable performance characteristics and potential consequences that do not disproportionately affect any one group of individuals. Performed By: #### L [id number] ####[facility] ([facility] [place] [address] Glucose [Mass/Vol] 96 mg/dL Normal 70-100 [facility] Comment on above: Performed By: #### L [id number] ####[facility] ([facility] [place] [address] Potassium [Moles/Vol] 4.3 mmol/L Normal 3.5-5.1 [facility] Comment on above: Performed By: #### L AB15 ####[facility] (BEAKER)[address] [place] [address] Sodium [Moles/Vol] 137 mmol/L Normal 136-145 [facility] Comment on above: Performed By: #### L [id number] ####[facility] LAB (BEAKER)[address] [place] [address] Urea nitrogen [Mass/Vol] 15 mg/dL Normal 7-25 [facility] Comment on above: Performed By: #### L AB15 ####[facility] LAB (BEAKER)[address] [place] [address] UREA NITROGEN/CREATININE (MASS RATIO) IN SER/PLAS 14.9 Normal [facility] Comment on above: Performed By: #### L AB15 ####[facility] ([facility] [place] [address] CALCIUM, IONIZEDon CALCIUM IONIZED (MMOL/L) IN BLOOD 1.34 mmol/L High 1.15-1.33 [facility] Comment on above: Performed By: #### C ALCIUM, IONIZED ####[facility] RESPIRATORY [id number] [place] [address] [place] CBCon 08-16-2024 Erythrocyte distribution width (RBC) [Ratio] 12.9 % Normal 11.5-15.0 [facility] Comment on above: Performed By: #### L [id number] ####[facility] ([facility] [place] [address] ERYTHROCYTE MEAN CORPUSCULAR HEMOGLOBIN CONCENTRATION (G/DL) BY AUTOMATED 33.4 g/dL Normal 32.0-35.0 [facility] Comment on above: Performed By: #### L [id number] ####[facility] LAB (BEAKER)[address] [place] [address] Hematocrit (Bld) [Volume fraction] 30.5 % Low 39.0-50.0 [facility] Comment on above: Performed By: #### L [id number] ####[facility] LAB (BEAKER)[address] [place] [address] Hemoglobin (Bld) [Mass/Vol] 10.2 g/dL Low 13.0-17.0 [facility] Comment on above: Performed By: #### L [id number] ####[facility] LAB (BEAKER)[address] [place] [address] MCH (RBC) [Entitic mass] 30.1 pg Normal 27.0-33.0 [facility] Comment on above: Performed By: #### L [id number] ####[facility] ([facility] [place] [address] MCV (RBC) [Entitic vol] 90.0 fL Normal 82.0-98.0 [facility] Comment on above: Performed By: #### L [id number] ####[facility] ([facility] [place] [address] PLATELETS (10*3/UL) IN BLOOD AUTOMATED COUNT 170 10*3/uL Normal 150-400 [facility] Comment on above: Performed By: #### L [id number] ####[facility] ([facility] [place] [address] RBC (Bld) [#/Vol] 3.39 10*6/uL Low 4.20-5.70 [facility] Comment on above: Performed By: #### L [id number] ####[facility] (BEAKER)[address] [place] [address] WBC (Bld) [#/Vol] 14.36 10*3/uL High 4.00-10.60 [facility] Comment on above: Performed By: #### L [id number] ####[facility] LAB (BEAKER)[address] [place] [address] Erythrocyte distribution width (RBC) [Ratio] 12.8 % Normal 11.5-15.0 [facility] Comment on above: Order Comment: On ar rival to SICU Performed By: #### L [id number] ####[facility] LAB (BEAKER)[address] [place] [address] ERYTHROCYTE MEAN CORPUSCULAR HEMOGLOBIN CONCENTRATION (G/DL) BY AUTOMATED 34.7 g/dL Normal 32.0-35.0 [facility] Comment on above: Order Comment: On ar rival to SICU Performed By: #### L [id number] ####[facility] ([facility] [place] [address] Hematocrit (Bld) [Volume fraction] 29.7 % Low 39.0-50.0 [facility] Comment on above: Order Comment: On ar rival to SICU Performed By: #### L [id number] ####[facility] ([facility] [place] [address] Hemoglobin (Bld) [Mass/Vol] 10.3 g/dL Low 13.0-17.0 [facility] Comment on above: Order Comment: On ar rival to SICU Performed By: #### L [id number] ####[facility] ([facility])[address] [place] [address] MCH (RBC) [Entitic mass] 30.2 pg Normal 27.0-33.0 [facility] Comment on above: Order Comment: On ar rival to SICU Performed By: #### L [id number] ####[facility] ([facility])[address] [place] [address] MCV (RBC) [Entitic vol] 87.1 fL Normal 82.0-98.0 [facility] Comment on above: Order Comment: On ar rival to SICU Performed By: #### L [id number] ####[facility] ([facility] [place] [address] PLATELETS (10*3/UL) IN BLOOD AUTOMATED COUNT 160 10*3/uL Normal 150-400 [facility] Comment on above: Order Comment: On ar rival to SICU Performed By: #### L [id number] ####[facility] ([facility] [place] [address] RBC (Bld) [#/Vol] 3.41 10*6/uL Low 4.20-5.70 [facility] Comment on above: Order Comment: On ar rival to SICU Performed By: #### L [id number] ####[facility] HOSPITAL LAB (BEAKER)[address] [place] [address] WBC (Bld) [#/Vol] 12.07 10*3/uL High 4.00-10.60 [facility] Comment on above: Order Comment: On ar rival to SICU Performed By: #### L [id number] ####[facility] (BEAKER)[address] [place] [address] Erythrocyte distribution width (RBC) [Ratio] 12.8 % Normal 11.5-15.0 [facility] Comment on above: Performed By: #### L [id number] ####[facility] (BEAKER)[address] [place] [address] ERYTHROCYTE MEAN CORPUSCULAR HEMOGLOBIN CONCENTRATION (G/DL) BY AUTOMATED 34.6 g/dL Normal 32.0-35.0 [facility] Comment on above: Performed By: #### L [id number] ####[facility] (BEAKER)[address] [place] [address] Hematocrit (Bld) [Volume fraction] 45.4 % Normal 39.0-50.0 [facility] Comment on above: Performed By: #### L [id number] ####[facility] (BEAKER)[address] [place] [address] Hemoglobin (Bld) [Mass/Vol] 15.7 g/dL Normal 13.0-17.0 [facility] Comment on above: Performed By: #### L [id number] ####[facility] (BEAKER)[address] [place] [address] MCH (RBC) [Entitic mass] 30.3 pg Normal 27.0-33.0 [facility] Comment on above: Performed By: #### L [id number] ####[facility] (BEAKER)[address] [place] [address] MCV (RBC) [Entitic vol] 87.6 fL Normal 82.0-98.0 [facility] Comment on above: Performed By: #### L [id number] ####[facility] ([facility])[address] [place] [address] PLATELETS (10*3/UL) IN BLOOD AUTOMATED COUNT 173 10*3/uL Normal 150-400 [facility] [place] Comment on above: Performed By: #### L [id number] ####[facility] ([facility])[address] [place] [address] RBC (Bld) [#/Vol] 5.18 10*6/uL Normal 4.20-5.70 [facility] Comment on above: Performed By: #### L [id number] ####[facility] ([facility])[address] [place] [address] WBC (Bld) [#/Vol] 4.36 10*3/uL Normal 4.00-10.60 [facility] Comment on above: Performed By: #### L [id number] ####[facility] ([facility])[address] [place] [address] CO-OXIMETRYon 08-16-2024 CARBOXYHEMOGLOBIN/HE MOGLOBIN TOTAL % IN BLOOD 2.0 % Normal [facility] Comment on above: Performed By: #### L [id number] ####[facility] RESPIRAT[facility] [id number] [place] [address] [place] Hemoglobin (Bld) [Mass/Vol] 10.8 g/dL Normal [facility] Comment on above: Performed By: #### L [id number] ####[facility] [id number] [address] [facility] [place] [address] [place] METHEMOGLOBIN/100 IN BLOOD 0.0 % Normal 0.0-1.5 [facility] Comment on above: Performed By: #### L [id number] ####[facility]PIR[facility] [id number] [place] [address] [place] Oxygen saturation in Blood 55.4 % Normal [facility] Comment on above: Performed By: #### L [id number] ####[facility]PIR[facility] [id number] [place] [address] [facility] OXYGENATED HEMOGLOBIN IN BLOOD 54.3 % Normal [facility] Comment on above: Performed By: #### L [id number] ####[facility] [id number] [place] [address] [facility] EXTEM Con 08-16-2024 EXTEM C A10 56 mm Normal 45-62 [facility] Comment on above: Performed By: #### E XTEM C ####[facility] [id number] [place] [address] [facility] EXTEM C A20 62 mm Normal 54-69 [facility] Comment on above: Performed By: #### E XTEM C ####[facility] [id number] [place] [address] [facility] EXTEM C A5 47 mm Normal 33-52 [facility] Comment on above: Performed By: #### E XTEM C ####[facility]PIR[facility] [id number] [place] [address] [facility] EXTEM C CT 66 s Normal 51-73 [facility] Comment on above: Performed By: #### E XTEM C ####[facility]PIR[facility] [id number] [place] [address] [facility] EXTEM C ML 0 % Normal 0-6 [facility] Comment on above: Result Comment: KS^P reliminary Result Performed By: #### E XTEM C ####[facility] [id number] [place] [address] [place] EXTEM C A10 44 mm Low 45-62 [facility] Comment on above: Performed By: #### E XTEM C ####[facility] [id number] [place] [address] [place] EXTEM C A20 51 mm Low 54-69 [facility] Comment on above: Performed By: #### E XTEM C ####[facility] [id number] [place] [address] [facility] EXTEM C A5 34 mm Normal 33-52 [facility] Comment on above: Performed By: #### E XTEM C ####[facility] [id number] [place] [address] 72 s Normal 51-73 [facility] Comment on above: Performed By: #### E XTEM C ####[facility] [id number] [place] [address] [place] EXTEM C ML 0 % Normal 0-6 [facility] Comment on above: Result Comment: [place]^P reliminary Result Performed By: #### E XTEM C ####[facility] [id number] [place] [address] [facility] EXTEM C A10 55 mm Normal 45-62 [facility] Comment on above: Performed By: #### E XTEM C ####[facility] RESPIR[facility] [id number] [place] [facility] [place] [address] [facility] EXTEM C A20 62 mm Normal 54-69 [facility] Comment on above: Performed By: #### E XTEM C ####[facility] RESPIRATORY [id number] [facility] [place] [address] [facility] EXTEM C A5 44 mm Normal 33-52 [facility] Comment on above: Performed By: #### E XTEM C ####[facility]PIR[facility] [id number] [place] [address] 54 s Normal 51-73 [facility] Comment on above: Performed By: #### E XTEM C ####[facility]PIR[facility] [id number] [facility] [place] [address] [place] EXTEM C MCF 63 mm Normal 57-72 [facility] Comment on above: Performed By: #### E XTEM C ####[facility] RESPIR[facility] [id number] [place] [address] [place] EXTEM C ML 0 % Normal 0-6 [facility] Comment on above: Result Comment: [place]^P reliminary Result Performed By: #### E XTEM C ####[facility] [id number] [place] [address] [place] FIBRINOGENon 08-16-2024 Magnesium [Mass/Vol] 189 mg/dL Normal 150-425 [facility] Comment on above: Performed By: #### L [id number] ####[facility]OSPITAL LAB (BEAKER)[address] [place] [address] FIBTEM Con 08-16-2024 FIBTEM C A10 9 mm Normal -17 [facility] Comment on above: Performed By: #### F IBTEM C ####[facility] RESPIRAT[facility] [id number] [place] [address] [place] FIBTEM C A20 10 mm Normal 6-18 [facility] Comment on above: Performed By: #### F IBTEM C ####[facility] RESPIR[facility] [id number] [place] [address] [place] FIBTEM C A5 8 mm Normal -16 [facility] Comment on above: Performed By: #### F IBTEM C ####[facility] RESPIR[facility]ORY [id number] [place] [address] [place] FIBTEM C MCF 10 mm Normal - [facility] Comment on above: Performed By: #### F IBTEM C ####[facility] [id number] [place] [address] [place] FIBTEM C A10 9 mm Normal -17 [facility] Comment on above: Performed By: #### F IBTEM C ####[facility] RESPIRATORY [id number] [place] [address] [place] FIBTEM C A20 10 mm Normal -18 [facility] Comment on above: Performed By: #### F IBTEM C ####[facility] RESPIRATORY [id number] [place] [address] [place] FIBTEM C A5 8 mm Normal -16 [facility] Comment on above: Performed By: #### F IBTEM C ####[facility] RESPIRATORY [id number] [place] [address] [place] FIBTEM C MCF 10 mm Normal -19 [facility] Comment on above: Performed By: #### F IBTEM C ####[facility]PIR[facility] [id number] [place] [address] [place] FIBTEM C A10 13 mm Normal 6-17 [facility] Comment on above: Performed By: #### F IBTEM C ####[facility] RESPIRATORY [id number] [place] [address] [place] FIBTEM C A20 14 mm Normal 6-18 [facility] Comment on above: Performed By: #### F IBTEM C ####[facility] RESPIR[facility] [id number] [place] [address] [facility] FIBTEM C A5 11 mm Normal 5-16 [facility] Comment on above: Performed By: #### F IBTEM C ####[facility] RESPIR[facility] [id number] [place] [address] [facility] FIBTEM C MCF 14 mm Normal 6-19 [facility] Comment on above: Performed By: #### F IBTEM C ####[facility] RESPIR[facility] [id number] [place] [address] [place] HEPTEM Con 08-16-2024 HEPTEM C A10 52 mm Normal 44-61 [facility] Comment on above: Performed By: #### H EPTEM C ####[facility] RESPIRATORY [id number] [place] [address] [place] HEPTEM C A20 57 mm Normal 52-67 [facility] Comment on above: Performed By: #### H EPTEM C ####[facility] RESPIR[facility] [id number] [place] [address] [facility] HEPTEM C A5 42 mm Normal 33-51 [facility] Comment on above: Performed By: #### H EPTEM C ####[facility] RESPIRATORY [id number] [place] [address] [place] [address] 189 s Normal 141-215 [facility] Comment on above: Performed By: #### H EPTEM C ####[facility] RESPIR[facility] [id number] [place] [address] [place] HEPTEM C A10 43 mm Low 44-61 [facility] Comment on above: Performed By: #### H EPTEM C ####[facility] RESPIRATORY [id number] [place] [address] [place] HEPTEM C A20 49 mm Low 52-67 [facility] Comment on above: Performed By: #### H EPTEM C ####[facility] RESPIRATORY [id number] [place] [address] [place] HEPTEM C A5 32 mm Low 33-51 [facility] Comment on above: Performed By: #### H EPTEM C ####[facility] RESPIRATORY [id number] [place] [address] [place] [address] [address] [place] 316 s High 141-215 [facility] Comment on above: Performed By: #### H EPTEM C ####[facility] RESPIRATORY [id number] [place] [address] [place] HEPTEM C A10 51 mm Normal 44-61 [facility] Comment on above: Performed By: #### H EPTEM C ####[facility] RESPIRATORY [id number] [place] [address] [place] HEPTEM C A20 57 mm Normal 52-67 [facility] Comment on above: Performed By: #### H EPTEM C ####[facility] RESPIRATORY [id number] [place] [address] [place] HEPTEM C A5 41 mm Normal 33-51 [facility] Comment on above: Performed By: #### H EPTEM C ####[facility] RESPIRATORY [id number] [place] [address] [place] [address] [address] [place] 181 s Normal 141-215 [facility] Comment on above: Performed By: #### H EPTEM C ####[facility] RESPIRAT[facility] [id number] [place] [address] [place] HEPTEM C MCF 58 mm Normal 54-69 [facility] Comment on above: Performed By: #### H EPTEM C ####[facility] RESPIRATORY [id number] [place] [address] [facility] HISTOLOGY - TISSUE EXAMon LAB AP CASE REPORT Normal [facility] Comment on above: Order Comment: Pre-o p diagnosis:Multi-vessel coronary artery stenosis [I25.10] Result Comment: Surg ical Pathology Case: [id number] Provider: Keith Cherry MD Collected: 08/16/2024 1116Ordering Location: [facility] Main Operating Room Received: 08/16/2024 1159Pathologist: ADIA Ohpecimen: Soft Tissue, Left atrial appendage Performed By: #### L [id number] ####[facility] (BEAKER)[address] [facility] [place] [address] LAB AP CLINICAL INFORMATION [facility] Comment on above: Order Comment: Pre-o p diagnosis:Multi-vessel coronary artery stenosis [I25.10] Result Comment: Post -Op DxdexdncfN48.10 - Multi-vessel coronary artery stenosis [ICD-10-CM] Performed By: #### L [id number] ####[facility] (BEAKER)[address] [place] [address] LAB AP GROSS DESCRIPTION A. Soft Tissue. [facility] Comment on above: Order Comment: Pre-o p diagnosis:Multi-vessel coronary artery stenosis [I25.10] Result Comment: The specimen is received in formalin labeled Christopher Wiedle and left atrial appendage. It consists of a 3.5 x 3.0 x 1.1 cm portion of dotson-pink muscular tissue with a minimal amount of epicardial fat. The endocardium is dotson-white and smooth. The resection margin is inked black. The specimen is sectioned to reveal normal dotson-pink trabeculations and no blood clots. Door Slinger sections are submitted in 1 cassette.Dorys Black, Pathologists' Digital Account Manager vianeyDarand Joe Pathologists' Digital Account Manager Performed By: #### L [id number] ####[facility] (BEAKER)[address] [facility] [place] [address] LAB AP MICROSCOPIC DESCRIPTION Microscopic examination performed. [facility] Comment on above: Order Comment: Pre-o p diagnosis:Multi-vessel coronary artery stenosis [I25.10] Performed By: #### L [id number] ####[facility] (BEAKER)[address] [place] [address] LAB AP REPORT FINAL DIAGNOSIS NARRATIVE [facility] Comment on above: Order Comment: Pre-o p diagnosis:Multi-vessel coronary artery stenosis [I25.10] Result Comment: A. Luis eart, left atrial appendage, excision: - Benign cardiac tissue. Performed By: #### L [id number] ####[facility] HOSPITAL LAB (BEAKER)[address] [facility] [place] [address] HPon 08-16-2024 HP H&P reviewed. The pa amada was examined and there are no changes to the H&P. Normal [facility] INTEM Con 08-16-2024 INTEM C A10 52 mm Normal 46-63 [facility] Comment on above: Performed By: #### I NTEM C ####[facility] RESPIRATORY [id number] [facility] [place] [address] [facility] INTEM C A20 58 mm Normal 53-68 [facility] Comment on above: Performed By: #### I NTEM C ####[facility] RESPIRATORY [id number] [facility] [place] [address] [facility] INTEM C A5 43 mm Normal 36-54 [facility] Comment on above: Performed By: #### I NTEM C ####[facility] RESPIRATORY [id number] [facility] [place] [address] [facility] INTEM C CT 198 s Normal 139-205 [facility] Comment on above: Performed By: #### I NTEM C ####[facility] RESPIRATORY [id number] [facility] [place] [address] [facility] INTEM C MCF 58 mm Normal 55-70 [facility] Comment on above: Performed By: #### I NTEM C ####[facility] RESPIRATORY [id number] [facility] [place] [address] [facility] INTEM C ML 0 % Normal 0-7 [facility] Comment on above: Result Comment: [place]^P reliminary Result Performed By: #### I NTEM C ####[facility] RESPIRATORY [id number] [place] [address] [facility] INTEM C CT 365.0 s High 139-205 [facility] Comment on above: Result Comment: [place]^P reliminary Result>^Outside Reportable Range Performed By: #### I NTEM C ####[facility] RESPIRATORY [id number] [place] [address] [place] INTEM C A10 52 mm Normal 46-63 [facility] Comment on above: Performed By: #### I NTEM C ####[facility] RESPIRATORY [id number] [place] [address] [place] INTEM C A20 58 mm Normal 53-68 [facility] Comment on above: Performed By: #### I NTEM C ####[facility] RESPIRATORY [id number] [place] [address] [place] INTEM C A5 41 mm Normal 36-54 [facility] Comment on above: Performed By: #### I NTEM C ####[facility] RESPIRATORY [id number] [place] [address] [place] [address] 201 s Normal 139-205 [facility] Comment on above: Performed By: #### I NTEM C ####[facility] RESPIRATORY [id number] [place] [address] [place] INTEM C ML 0 % Normal 0-7 [facility] Comment on above: Result Comment: [place]^P reliminary Result Performed By: #### I NTEM C ####[facility] RESPIRATORY [id number] [place] [address] [place] LACTIC ACID WITH 4 HOUR REFL EXon 08-16-2024 LACTATE (MMOL/L) IN SER/PLAS 2.3 mmol/L High 0.5-2.2 [facility] Comment on above: Performed By: #### L [id number] ####[facility] HOSPITAL LAB (BEAKER)[address] [place] [address] LACTIC ACID, PLASMAon 2024 LACTATE (MMOL/L) IN SER/PLAS 3.1 mmol/L Critically high 0.5-2.2 [facility] Comment on above: Order Comment: On ar rival to SICU Performed By: #### L [id number] ####[facility] HOSPITAL LAB (BEAKER)[address] [place] [address] MAGNESIUMon 08-16-2024 Magnesium [Mass/Vol] 2.2 mg/dL Normal 1.9-2.7 [facility] Comment on above: Performed By: #### L [id number] ####[facility] ([facility])[address] [place] [address] Magnesium [Mass/Vol] 2.6 mg/dL Normal 1.9-2.7 [facility] Comment on above: Order Comment: On ar rival to SICU Performed By: #### L [id number] ####[facility] ([facility])[address] [place] [address] Magnesium [Mass/Vol] 1.9 mg/dL Normal 1.9-2.7 [facility] Comment on above: Performed By: #### L [id number] ####[facility] ([facility])[address] [place] [address] NURSNOTEon 08-16-2024 NURSNOTE Stat chest xray comp leted intraop Normal [facility] NURSNOTE Patient off unit, pe r pre op staff. Normal [facility] OPNOTEon 08-16-2024 OPNOTE Normal [facility] PHOSPHORUSon 08-16-2024 Magnesium [Mass/Vol] 3.5 mg/dL Normal 2.5-5.0 [facility] Comment on above: Performed By: #### L [id number] ####[facility] ([facility])[address] [place] [address] Magnesium [Mass/Vol] 4.4 mg/dL Normal 2.5-5.0 [facility] Comment on above: Order Comment: On ar rival to SICU Performed By: #### L [id number] ####[facility] ([facility])[address] [place] [address] Magnesium [Mass/Vol] 3.6 mg/dL Normal 2.5-5.0 [facility] Comment on above: Performed By: #### L [id number] ####[facility] (BEAKER)[address] [place] [address] POCT ACTIVATED CLOTTING TIME UNSOLICITED RESULTSon 08-16-2024 POC ACTIVATED CLOTTING TIME 113 sec Normal 82-152 [facility] Comment on above: Performed By: #### L [id number] ####[facility] HOSPITAL LAB (BEAKER)[address] [place] [address] POC ACTIVATED CLOTTING TIME 537 sec High 82-152 [facility] Comment on above: Performed By: #### L [id number] ####[facility] HOSPITAL LAB (BEAKER)[address] [place] [address] POC ACTIVATED CLOTTING TIME 561 sec High 82-152 [facility] Comment on above: Performed By: #### L [id number] ####[facility] HOSPITAL LAB (BEAKER)[address] [place] [address] POC ACTIVATED CLOTTING TIME 543 sec High 82-152 [facility] Comment on above: Performed By: #### L [id number] ####[facility] HOSPITAL LAB (BEAKER)[address] [place] [address] POC ACTIVATED CLOTTING TIME 489 sec High 82-152 [facility] Comment on above: Performed By: #### L [id number] ####[facility] HOSPITAL LAB (BEAKER)[address] [place] [address] POC ACTIVATED CLOTTING TIME 543 sec High 82-152 [facility] Comment on above: Performed By: #### L [id number] ####[facility] HOSPITAL LAB (BEAKER)[address] [place] [address] POC ACTIVATED CLOTTING TIME 526 sec High 82-152 [facility] Comment on above: Performed By: #### L [id number] ####[facility] HOSPITAL LAB (BEAKER)[address] [place] [address] POC ACTIVATED CLOTTING TIME 471 sec High 82-152 [facility] Comment on above: Performed By: #### L [id number] ####[facility] HOSPITAL LAB (BEAKER)[address] [place] [address] POC ACTIVATED CLOTTING TIME 408 sec High 82-152 [facility] Comment on above: Performed By: #### L [id number] ####[facility] HOSPITAL LAB ([facility])[address] [place] [address] POC ACTIVATED CLOTTING TIME 119 sec Normal 82-152 [facility] Comment on above: Performed By: #### L [id number] ####[facility] HOSPITAL LAB (BEAKER)[address] [place] [address] POCT GLUCOSE METER UNSOLICIT ED RESULTSon 08-16-2024 Glucose [Mass/Vol] 169 mg/dL High 70-105 [facility] Comment on above: Order Comment: Waive d Testing in the ED is performed under the ED CLIA certificate #[id number]. Result Comment: [email or web address] Performed By: #### L [id number] ####[facility] ([facility])[address] [place] [address] Glucose [Mass/Vol] 164 mg/dL High 70-105 [facility] Comment on above: Order Comment: Waive d Testing in the ED is performed under the ED CLIA certificate #[id number]. Result Comment: [email or web address] Performed By: #### L [id number] ####[facility] HOSPITAL LAB ([facility])[address] [place] [address] Glucose [Mass/Vol] 166 mg/dL High 70-105 [facility] Comment on above: Order Comment: Waive d Testing in the ED is performed under the ED CLIA certificate #[id number]. Result Comment: [email or web address] Performed By: #### L [id number] ####[facility] HOSPITAL LAB ([facility])[address] [place] [address] Glucose [Mass/Vol] 184 mg/dL High 70-105 [facility] Comment on above: Order Comment: Waive d Testing in the ED is performed under the ED CLIA certificate #[id number]. Result Comment: [email or web address] Performed By: #### L [id number] ####[facility] [place] [address] Glucose [Mass/Vol] 172 mg/dL High 70-105 [facility] Comment on above: Order Comment: Waive d Testing in the ED is performed under the ED CLIA certificate #[id number]. Result Comment: [email or web address] Performed By: #### L [id number] ####[facility] HOSPITAL LAB ([facility])[address] [place] [address] Glucose [Mass/Vol] 141 mg/dL High 70-105 [facility] Comment on above: Order Comment: Waive d Testing in the ED is performed under the ED CLIA certificate #[id number]. Result Comment: [email or web address] Performed By: #### L [id number] ####[facility] ([facility])[address] [place] [address] Glucose [Mass/Vol] 162 mg/dL High 70-105 [facility] Comment on above: Order Comment: Waive d Testing in the ED is performed under the ED CLIA certificate #[id number]. Result Comment: [email or web address] Performed By: #### L [id number] ####[facility] ([facility])[address] [place] [address] Glucose [Mass/Vol] 102 mg/dL Normal 70-105 [facility] Comment on above: Order Comment: Waive d Testing in the ED is performed under the ED CLIA certificate #[id number]. Result Comment: [email or web address] Performed By: #### L [id number] ####[facility] ([facility])[address] [place] [address] POCT PERFUSION PANEL UNSOLIC ITED RESULTSon 08-16-2024 CO2 [Moles/Vol] 25.0 mmol/L Normal 21.0-29.0 [facility] Comment on above: Performed By: #### L [id number] ####[facility] ([facility])[address] [place] [address] Glucose [Mass/Vol] 176 mg/dL High 70-105 [facility] Comment on above: Performed By: #### L [id number] ####[facility] ([facility])[address] [place] [address] HCO3 (Bld) [Moles/Vol] 23.7 mmol/L Normal 23.0-28.0 [facility] Comment on above: Performed By: #### L [id number] ####[facility] ([facility])[address] [place] [address] Hematocrit (Bld) [Volume fraction] 29 % Low 38-51 [facility] Comment on above: Performed By: #### L [id number] ####[facility] ([facility])[address] [place] [address] Hemoglobin (Bld) [Mass/Vol] 9.9 g/dL Low 12.0-17.0 [facility] Comment on above: Performed By: #### L [id number] ####[facility] ([facility])[address] [place] [address] POCT BASE EXCESS -1.0 mmol/L Normal -2.0-3.0 [facility] Comment on above: Performed By: #### L [id number] ####[facility] (BEAKER)[address] [place] [address] POCT IONIZED CALCIUM 1.34 mmol/L High 1.12-1.32 [facility] Comment on above: Performed By: #### L [id number] ####[facility] (BEAKER)[address] [place] [address] POCT PCO2 36.8 mmHg Low 41.0-51.0 [facility] Comment on above: Performed By: #### L [id number] ####[facility] (BEAKER)[address] [place] [address] POCT PH 7.42 High 7.31-7.41 [facility] Comment on above: Performed By: #### L [id number] ####[facility] (BEAKER)[address] [place] [address] POCT PO2 69 mmHg Low 80-105 [facility] Comment on above: Performed By: #### L [id number] ####[facility] (BEAKER)[address] [place] [address] POCT SO2 94 % Low 95-98 [facility] Comment on above: Performed By: #### L [id number] ####[facility] (BEAKER)[address] [place] [address] Potassium [Moles/Vol] 3.9 mmol/L Normal 3.5-4.9 [facility] Comment on above: Performed By: #### L [id number] ####[facility] (BEAKER)[address] [place] [address] Sodium [Moles/Vol] 139 mmol/L Normal 138.0-146 . 0 [facility] Comment on above: Performed By: #### L [id number] ####[facility] (BEAKER)[address] [place] [address] CO2 [Moles/Vol] 24.0 mmol/L Normal 21.0-29.0 [facility] Comment on above: Performed By: #### L [id number] ####[facility] (BEAKER)[address] [place] [address] Glucose [Mass/Vol] 192 mg/dL High 70-105 [facility] Comment on above: Performed By: #### L [id number] ####[facility] (BEAKER)[address] [place] [address] HCO3 (Bld) [Moles/Vol] 23.4 mmol/L Normal 23.0-28.0 [facility] Comment on above: Performed By: #### L [id number] ####[facility] (BEAKER)[address] [place] [address] Hematocrit (Bld) [Volume fraction] 28 % Low 38-51 [facility] Comment on above: Performed By: #### L [id number] ####[facility] (BEAKER)[address] [place] [address] Hemoglobin (Bld) [Mass/Vol] 9.5 g/dL Low 12.0-17.0 [facility] Comment on above: Performed By: #### L [id number] ####[facility] (BEAKER)[address] [address] POCT BASE EXCESS 0.0 mmol/L Normal -2.0-3.0 [facility] Comment on above: Performed By: #### L [id number] ####[facility] (BEAKER)[address] [place] [address] POCT IONIZED CALCIUM 1.24 mmol/L Normal 1.12-1.32 [facility] Comment on above: Performed By: #### L [id number] ####[facility] (BEAKER)[address] [place] [address] POCT PCO2 33.3 mmHg Low 41.0-51.0 [facility] Comment on above: Performed By: #### L [id number] ####[facility] (BEAKER)[address] [place] [address] POCT PH 7.46 High 7.31-7.41 [facility] Comment on above: Performed By: #### L [id number] ####[facility] (BEAKER)[address] [address] POCT PO2 75 mmHg Low 80-105 [facility] Comment on above: Performed By: #### L [id number] ####[facility] (BEAKER)[address] [address] POCT SO2 96 % Normal 95-98 [facility] Comment on above: Performed By: #### L [id number] ####[facility] (BEAKER)[address] [address] Potassium [Moles/Vol] 4.5 mmol/L Normal 3.5-4.9 [facility] Comment on above: Performed By: #### L [id number] ####[facility] (BEAKER)[address] [address] Sodium [Moles/Vol] 137 mmol/L Low 138.0-146 . 0 [facility] Comment on above: Performed By: #### L [id number] ####[facility] (BEAKER)[address] [address] CO2 [Moles/Vol] 26.0 mmol/L Normal 21.0-29.0 [facility] Comment on above: Performed By: #### L [id number] ####[facility] (BEAKER)[address] [address] Glucose [Mass/Vol] 177 mg/dL High 70-105 [facility] Comment on above: Performed By: #### L [id number] ####[facility] (BEAKER)[address] [address] HCO3 (Bld) [Moles/Vol] 24.9 mmol/L Normal 23.0-28.0 [facility] Comment on above: Performed By: #### L [id number] ####[facility] (BEAKER)[address] [place] [address] Hematocrit (Bld) [Volume fraction] 26 % Low 38-51 [facility] Comment on above: Performed By: #### L [id number] ####[facility] (BEAKER)[address] [address] Hemoglobin (Bld) [Mass/Vol] 8.8 g/dL Low 12.0-17.0 [facility] Comment on above: Performed By: #### L [id number] ####[facility] (BEAKER)[address] [place] [address] POCT BASE EXCESS 2.0 mmol/L Normal -2.0-3.0 [facility] Comment on above: Performed By: #### L [id number] ####[facility] (BEAKER)[address] [place] [address] POCT IONIZED CALCIUM 1.30 mmol/L Normal 1.12-1.32 [facility] Comment on above: Performed By: #### L [id number] ####[facility] (BEAKER)[address] [place] [address] POCT PCO2 30.6 mmHg Low 41.0-51.0 [facility] Comment on above: Performed By: #### L [id number] ####[facility] [place] [address] POCT PH 7.52 High 7.31-7.41 [facility] Comment on above: Performed By: #### L [id number] ####[facility] ([facility])[address] [place] [address] POCT PO2 82 mmHg Normal 80-105 [facility] Comment on above: Performed By: #### L [id number] ####[facility] ([facility])[address] [place] [address] POCT SO2 97 % Normal 95-98 [facility] Comment on above: Performed By: #### L [id number] ####[facility] ([facility])[address] [place] [address] Potassium [Moles/Vol] 5.4 mmol/L High 3.5-4.9 [facility] Comment on above: Performed By: #### L [id number] ####[facility] [place] [address] Sodium [Moles/Vol] 135 mmol/L Low 138.0-146 . 0 [facility] Comment on above: Performed By: #### L [id number] ####[facility] [place] [address] CO2 [Moles/Vol] 29.0 mmol/L Normal 21.0-29.0 [facility] Comment on above: Performed By: #### L [id number] ####[facility] [place] [address] Glucose [Mass/Vol] 151 mg/dL High 70-105 [facility] Comment on above: Performed By: #### L [id number] ####[facility] [place] [address] HCO3 (Bld) [Moles/Vol] 28.7 mmol/L High 23.0-28.0 [facility] Comment on above: Performed By: #### L [id number] ####[facility] (BEAKER)[address] [place] [address] Hematocrit (Bld) [Volume fraction] 27 % Low 38-51 [facility] Comment on above: Performed By: #### L [id number] ####[facility] (BEAKER)[address] [place] [address] Hemoglobin (Bld) [Mass/Vol] 9.2 g/dL Low 12.0-17.0 [facility] Comment on above: Performed By: #### L [id number] ####[facility] (BEAKER)[address] [place] [address] POCT BASE EXCESS 9.0 mmol/L High -2.0-3.0 [facility] Comment on above: Performed By: #### L [id number] ####[facility] (BEAKER)[address] [place] [address] POCT IONIZED CALCIUM 0.99 mmol/L Low 1.12-1.32 [facility] Comment on above: Performed By: #### L [id number] ####[facility] (BEAKER)[address] [place] [address] POCT PCO2 24.1 mmHg Low 41.0-51.0 [facility] Comment on above: Performed By: #### L [id number] ####[facility] (BEAKER)[address] [place] [address] POCT PH 7.68 High 7.31-7.41 [facility] Comment on above: Performed By: #### L [id number] ####[facility] (BEAKER)[address] [place] [address] POCT PO2 512 mmHg High 80-105 [facility] Comment on above: Performed By: #### L [id number] ####[facility] (BEAKER)[address] [place] [address] POCT SO2 100 % High 95-98 [facility] Comment on above: Performed By: #### L [id number] ####[facility] (BEAKER)[address] [place] [address] Potassium [Moles/Vol] 6.1 mmol/L Critically high 3.5-4.9 [facility] Comment on above: Performed By: #### L [id number] ####[facility] (BEAKER)[address] [place] [address] Sodium [Moles/Vol] 133 mmol/L Low 138.0-146 . 0 [facility] Comment on above: Performed By: #### L [id number] ####[facility] (BEAKER)[address] [place] [address] CO2 [Moles/Vol] 26.0 mmol/L Normal 21.0-29.0 [facility] Comment on above: Performed By: #### L [id number] ####[facility] (BEAKER)[address] [place] [address] Glucose [Mass/Vol] 157 mg/dL High 70-105 [facility] Comment on above: Performed By: #### L [id number] ####[facility] (BEAKER)[address] [place] [address] HCO3 (Bld) [Moles/Vol] 25.4 mmol/L Normal 23.0-28.0 [facility] Comment on above: Performed By: #### L [id number] ####[facility] (BEAKER)[address] [place] [address] Hematocrit (Bld) [Volume fraction] 34 % Low 38-51 [facility] Comment on above: Performed By: #### L [id number] ####[facility] (BEAKER)[address] [place] [address] Hemoglobin (Bld) [Mass/Vol] 11.6 g/dL Low 12.0-17.0 [facility] Comment on above: Performed By: #### L [id number] ####[facility] (BEAKER)[address] [place] [address] POCT BASE EXCESS 3.0 mmol/L Normal -2.0-3.0 [facility] Comment on above: Performed By: #### L [id number] ####[facility] (BEAKER)[address] [address] POCT IONIZED CALCIUM 1.09 mmol/L Low 1.12-1.32 [facility] Comment on above: Performed By: #### L [id number] ####[facility] (BEAKER)[address] [place] [address] POCT PCO2 32.6 mmHg Low 41.0-51.0 [facility] Comment on above: Performed By: #### L [id number] ####[facility] (BEAKER)[address] [place] [address] POCT PH 7.50 High 7.31-7.41 [facility] Comment on above: Performed By: #### L [id number] ####[facility] (BEAKER)[address] [place] [address] POCT PO2 441 mmHg High 80-105 [facility] Comment on above: Performed By: #### L [id number] ####[facility] (BEAKER)[address] [place] [address] POCT SO2 100 % High 95-98 [facility] Comment on above: Performed By: #### L [id number] ####[facility] (BEAKER)[address] [place] [address] Potassium [Moles/Vol] 6.5 mmol/L Critically high 3.5-4.9 [facility] Comment on above: Performed By: #### L [id number] ####[facility] (BEAKER)[address] [place] [address] Sodium [Moles/Vol] 132 mmol/L Low 138.0-146 . 0 [facility] Comment on above: Performed By: #### L [id number] ####[facility] (BEAKER)[address] [place] [address] CO2 [Moles/Vol] 27.0 mmol/L Normal 21.0-29.0 [facility] Comment on above: Performed By: #### L [id number] ####[facility] (BEAKER)[address] [place] [address] Glucose [Mass/Vol] 155 mg/dL High 70-105 [facility] Comment on above: Performed By: #### L [id number] ####[facility] (BEAKER)[address] [place] [address] HCO3 (Bld) [Moles/Vol] 26.0 mmol/L Normal 23.0-28.0 [facility] Comment on above: Performed By: #### L [id number] ####[facility] (BEAKER)[address] [place] [address] Hematocrit (Bld) [Volume fraction] 33 % Low 38-51 [facility] Comment on above: Performed By: #### L [id number] ####[facility] (BEAKER)[address] [place] [address] Hemoglobin (Bld) [Mass/Vol] 11.2 g/dL Low 12.0-17.0 [facility] Comment on above: Performed By: #### L [id number] ####[facility] (BEAKER)[address] [place] [address] POCT BASE EXCESS 2.0 mmol/L Normal -2.0-3.0 [facility] Comment on above: Performed By: #### L [id number] ####[facility] (BEAKER)[address] [place] [address] POCT IONIZED CALCIUM 0.96 mmol/L Low 1.12-1.32 [facility] Comment on above: Performed By: #### L [id number] ####[facility] (BEAKER)[address] [place] [address] POCT PCO2 35.7 mmHg Low 41.0-51.0 [facility] Comment on above: Performed By: #### L [id number] ####[facility] (BEAKER)[address] [place] [address] POCT PH 7.47 High 7.31-7.41 [facility] Comment on above: Performed By: #### L [id number] ####[facility] (BEAKER)[address] [place] [address] POCT PO2 556 mmHg High 80-105 [facility] Comment on above: Performed By: #### L [id number] ####[facility] (BEAKER)[address] [place] [address] POCT SO2 100 % High 95-98 [facility] Comment on above: Performed By: #### L [id number] ####[facility] (BEAKER)[address] [place] [address] Potassium [Moles/Vol] 6.7 mmol/L Critically high 3.5-4.9 [facility] Comment on above: Performed By: #### L [id number] ####[facility] (BEAKER)[address] [place] [address] Sodium [Moles/Vol] 131 mmol/L Low 138.0-146 . 0 [facility] Comment on above: Performed By: #### L [id number] ####[facility] (BEAKER)[address] [place] [address] CO2 [Moles/Vol] 24.0 mmol/L Normal 21.0-29.0 [facility] Comment on above: Performed By: #### L [id number] ####[facility] (BEAKER)[address] [place] [address] Glucose [Mass/Vol] 147 mg/dL High 70-105 [facility] Comment on above: Performed By: #### L [id number] ####[facility] (BEAKER)[address] [place] [address] HCO3 (Bld) [Moles/Vol] 23.5 mmol/L Normal 23.0-28.0 [facility] Comment on above: Performed By: #### L [id number] ####[facility] (BEAKER)[address] [place] [address] Hematocrit (Bld) [Volume fraction] 32 % Low 38-51 [facility] Comment on above: Performed By: #### L [id number] ####[facility] (BEAKER)[address] [place] [address] Hemoglobin (Bld) [Mass/Vol] 10.9 g/dL Low 12.0-17.0 [facility] Comment on above: Performed By: #### L [id number] ####[facility] (BEAKER)[address] [place] [address] POCT BASE EXCESS 0.0 mmol/L Normal -2.0-3.0 [facility] Comment on above: Performed By: #### L [id number] ####[facility] (BEAKER)[address] [place] [address] POCT IONIZED CALCIUM 0.94 mmol/L Low 1.12-1.32 [facility] Comment on above: Performed By: #### L [id number] ####[facility] (BEAKER)[address] [place] [address] POCT PCO2 33.0 mmHg Low 41.0-51.0 [facility] Comment on above: Performed By: #### L [id number] ####[facility] (BEAKER)[address] [place] [address] POCT PH 7.46 High 7.31-7.41 [facility] Comment on above: Performed By: #### L [id number] ####[facility] (BEAKER)[address] [place] [address] POCT PO2 458 mmHg High 80-105 [facility] Comment on above: Performed By: #### L [id number] ####[facility] (BEAKER)[address] [place] [address] POCT SO2 100 % High 95-98 [facility] Comment on above: Performed By: #### L [id number] ####[facility] (BEAKER)[address] [place] [address] Potassium [Moles/Vol] 6.1 mmol/L Critically high 3.5-4.9 [facility] Comment on above: Performed By: #### L [id number] ####[facility] (BEAKER)[address] [place] [address] Sodium [Moles/Vol] 131 mmol/L Low 138.0-146 . 0 [facility] Comment on above: Performed By: #### L [id number] ####[facility] (BEAKER)[address] [place] [address] CO2 [Moles/Vol] 25.0 mmol/L Normal 21.0-29.0 [facility] Comment on above: Performed By: #### L [id number] ####[facility] (BEAKER)[address] [place] [address] Glucose [Mass/Vol] 165 mg/dL High 70-105 [facility] Comment on above: Performed By: #### L [id number] ####[facility] (BEAKER)[address] [place] [address] HCO3 (Bld) [Moles/Vol] 24.1 mmol/L Normal 23.0-28.0 [facility] Comment on above: Performed By: #### L [id number] ####[facility] (BEAKER)[address] [place] [address] Hematocrit (Bld) [Volume fraction] 43 % Normal 38-51 [facility] Comment on above: Performed By: #### L [id number] ####[facility] (BEAKER)[address] [place] [address] Hemoglobin (Bld) [Mass/Vol] 14.6 g/dL Normal 12.0-17.0 [facility] Comment on above: Performed By: #### L [id number] ####[facility] (BEAKER)[address] [place] [address] POCT BASE EXCESS -1.0 mmol/L Normal -2.0-3.0 [facility] Comment on above: Performed By: #### L [id number] ####[facility] (BEAKER)[address] [place] [address] POCT IONIZED CALCIUM 1.16 mmol/L Normal 1.12-1.32 [facility] Comment on above: Performed By: #### L [id number] ####[facility] (BEAKER)[address] [place] [address] POCT PCO2 39.3 mmHg Low 41.0-51.0 [facility] Comment on above: Performed By: #### L [id number] ####[facility] (BEAKER)[address] [place] [address] POCT PH 7.40 Normal 7.31-7.41 [facility] Comment on above: Performed By: #### L [id number] ####[facility] (BEAKER)[address] [place] [address] POCT PO2 60 mmHg Low 80-105 [facility] Comment on above: Performed By: #### L [id number] ####[facility] (BEAKER)[address] [place] [address] POCT SO2 90 % Low 95-98 [facility] Comment on above: Performed By: #### L [id number] ####[facility] (BEAKER)[address] [place] [address] Potassium [Moles/Vol] 5.2 mmol/L High 3.5-4.9 [facility] Comment on above: Performed By: #### L [id number] ####[facility] (BEAKER)[address] [place] [address] Sodium [Moles/Vol] 137 mmol/L Low 138.0-146 . 0 [facility] Comment on above: Performed By: #### L [id number] ####[facility] (BEAKER)[address] [place] [address] CO2 [Moles/Vol] 24.0 mmol/L Normal 21.0-29.0 [facility] Comment on above: Performed By: #### L [id number] ####[facility] (BEAKER)[address] [place] [address] Glucose [Mass/Vol] 132 mg/dL High 70-105 [facility] Comment on above: Performed By: #### L [id number] ####[facility] (BEAKER)[address] [place] [address] HCO3 (Bld) [Moles/Vol] 23.1 mmol/L Normal 23.0-28.0 [facility] Comment on above: Performed By: #### L [id number] ####[facility] (BEAKER)[address] [place] [address] Hematocrit (Bld) [Volume fraction] 42 % Normal 38-51 [facility] Comment on above: Performed By: #### L [id number] ####[facility] (BEAKER)[address] [place] [address] Hemoglobin (Bld) [Mass/Vol] 14.3 g/dL Normal 12.0-17.0 [facility] Comment on above: Performed By: #### L [id number] ####[facility] (BEAKER)[address] [place] [address] POCT BASE EXCESS -2.0 mmol/L Normal -2.0-3.0 [facility] Comment on above: Performed By: #### L [id number] ####[facility] (BEAKER)[address] [place] [address] POCT IONIZED CALCIUM 1.15 mmol/L Normal 1.12-1.32 [facility] Comment on above: Performed By: #### L [id number] ####[facility] ([facility]AKER)[address] [place] [address] POCT PCO2 39.9 mmHg Low 41.0-51.0 [facility] Comment on above: Performed By: #### L [id number] ####[facility] (BEAKER)[address] [place] [address] POCT PH 7.37 Normal 7.31-7.41 [facility] Comment on above: Performed By: #### L [id number] ####[facility] (BEAKER)[address] [place] [address] POCT PO2 82 mmHg Normal 80-105 [facility] Comment on above: Performed By: #### L [id number] ####[facility] (BEAKER)[address] [place], [place] [address] POCT SO2 96 % Normal 95-98 [facility] Comment on above: Performed By: #### L [id number] ####[facility] ([facility]AKER)[address] [place] [address] Potassium [Moles/Vol] 4.7 mmol/L Normal 3.5-4.9 [facility] Comment on above: Performed By: #### L [id number] ####[facility] (BEAKER)[address] [place] [address] Sodium [Moles/Vol] 138 mmol/L Normal 138.0-146 . 0 [facility] Comment on above: Performed By: #### L [id number] ####[facility] (BEAKER)[address] [place] [address] CO2 [Moles/Vol] 26.0 mmol/L Normal 21.0-29.0 [facility] Comment on above: Performed By: #### L [id number] ####[facility] (BEAKER)[address] [place] [address] Glucose [Mass/Vol] 114 mg/dL High 70-105 [facility] Comment on above: Performed By: #### L [id number] ####[facility] (BEAKER)[address] [place] [address] HCO3 (Bld) [Moles/Vol] 24.7 mmol/L Normal 23.0-28.0 [facility] Comment on above: Performed By: #### L [id number] ####[facility] ([facility]AKER)[address] [place] [address] Hematocrit (Bld) [Volume fraction] 44 % Normal 38-51 [facility] Comment on above: Performed By: #### L [id number] ####[facility] (BEAKER)[address] [place] [address] Hemoglobin (Bld) [Mass/Vol] 15.0 g/dL Normal 12.0-17.0 [facility] Comment on above: Performed By: #### L [id number] ####[facility] ([facility]AKER)[address] [place] [address] POCT BASE EXCESS 0.0 mmol/L Normal -2.0-3.0 [facility] [facility] Comment on above: Performed By: #### L [id number] ####[facility] (BEAKER)[address] [place] [address] POCT IONIZED CALCIUM 1.19 mmol/L Normal 1.12-1.32 [facility] Comment on above: Performed By: #### L [id number] ####[facility] (BEAKER)[address] [place] [address] POCT PCO2 40.9 mmHg Low 41.0-51.0 [facility] Comment on above: Performed By: #### L [id number] ####[facility]OSP[facility] LAB (BEAKER)[address] [place] [address] POCT PH 7.39 Normal 7.31-7.41 [facility] Comment on above: Performed By: #### L [id number] ####[facility]OSP[facility] LAB (BEAKER)[address] [place] [address] POCT PO2 114 mmHg High 80-105 [facility] Comment on above: Performed By: #### L [id number] ####[facility]OSP[facility] LAB (BEAKER)[address] [place] [address] POCT SO2 98 % Normal 95-98 [facility] Comment on above: Performed By: #### L [id number] ####[facility] (AKER)[address] [place] [address] Potassium [Moles/Vol] 4.4 mmol/L Normal 3.5-4.9 [facility] Comment on above: Performed By: #### L [id number] ####[facility] (BEAKER)[address] [place] [address] Sodium [Moles/Vol] 137 mmol/L Low 138.0-146 . 0 [facility] Comment on above: Performed By: #### L [id number] ####[facility] ([facility])[address] [place] [address] POTASSIUM, WHOLE BLOODon Potassium [Moles/Vol] 4.5 mmol/L Normal 3.5-5.1 [facility] Comment on above: Performed By: #### P OTASSIUM, WHOLE BLOOD ####[facility] RESPIRATORY [id number] [place] [address] [place] PROTIME-INRon 08-16-2024 INR IN PPP BY COAGULATION ASSAY 1.26 High 0.90-1.10 [facility] Comment on above: Result Comment: [facility] P RECOMMENDED INR FOR WARFARIN THERAPY CONDITION INRPROPHYLAXIS OF VENOUS THROMBOSIS 2-3(HIGH-RISK SURGERY)TREATMENT OF VENOUS THROMBOSIS 2-3TREATMENT OF PULMONARY EMBOLISM 2-3PREVENTION OF SYSTEMIC EMBOLISM: 2-3 ACUTE MYOCARDIAL INFARCTION TISSUE HEART VALVES VALVULAR HEART DISEASE ATRIAL FIBRILLATION RECURRENT SYSTEMIC EMBOLISMMECHANICAL HEART VALVE 2.5-3.5 FROM: ORAL ANTICOAGULANTS. MECHANISM OF ACTION, CLINICAL EFFECTIVENESS, AND OPTIMAL THERAPEUTIC RANGE. CHEST 1995;108:231S-246S. Performed By: #### L [id number] ####[facility] (BEAKER)[address] [place] [address] PROTHROMBIN TIME (PT) IN PPP BY COAGULATION ASSAY 15.7 Seconds High 12.3-14.8 [facility] Comment on above: Performed By: #### L [id number] ####[facility] (BEAKER)[address] [place] [address] INR IN PPP BY COAGULATION ASSAY 1.45 High 0.90-1.10 [facility] Comment on above: Order Comment: On ar rival to SICU Result Comment: [facility] P RECOMMENDED INR FOR WARFARIN THERAPY CONDITION INRPROPHYLAXIS OF VENOUS THROMBOSIS 2-3(HIGH-RISK SURGERY)TREATMENT OF VENOUS THROMBOSIS 2-3TREATMENT OF PULMONARY EMBOLISM 2-3PREVENTION OF SYSTEMIC EMBOLISM: 2-3 ACUTE MYOCARDIAL INFARCTION TISSUE HEART VALVES VALVULAR HEART DISEASE ATRIAL FIBRILLATION RECURRENT SYSTEMIC EMBOLISMMECHANICAL HEART VALVE 2.5-3.5 FROM: ORAL ANTICOAGULANTS. MECHANISM OF ACTION, CLINICAL EFFECTIVENESS, AND OPTIMAL THERAPEUTIC RANGE. CHEST 1995;108:231S-246S. Performed By: #### L [id number] ####[facility] (BEAKER)[address] [place] [address] PROTHROMBIN TIME (PT) IN PPP BY COAGULATION ASSAY 17.5 Seconds High 12.3-14.8 [facility] Comment on above: Order Comment: On ar rival to SICU Performed By: #### L [id number] ####[facility] (BEAKER)[address] [place] [address] INR IN PPP BY COAGULATION ASSAY 0.98 Normal 0.90-1.10 [facility] Comment on above: Result Comment[facility] THERAPY CONDITION INRPROPHYLAXIS OF VENOUS THROMBOSIS 2-3(HIGH-RISK SURGERY)TREATMENT OF VENOUS THROMBOSIS 2-3TREATMENT OF PULMONARY EMBOLISM 2-3PREVENTION OF SYSTEMIC EMBOLISM: 2-3 ACUTE MYOCARDIAL INFARCTION TISSUE HEART VALVES VALVULAR HEART DISEASE ATRIAL FIBRILLATION RECURRENT SYSTEMIC EMBOLISMMECHANICAL HEART VALVE 2.5-3.5 FROM: ORAL ANTICOAGULANTS. MECHANISM OF ACTION, CLINICAL EFFECTIVENESS, AND OPTIMAL THERAPEUTIC RANGE. CHEST 1995;108:231S-246S. Performed By: #### L [id number] ####[facility] (BEAKER)[address] [place] [address] PROTHROMBIN TIME (PT) IN PPP BY COAGULATION ASSAY 13.0 Seconds Normal 12.3-14.8 [facility] Comment on above: Performed By: #### L [id number] ####[facility] (BEAKER)[address] [place] [address] SODIUM, WHOLE BLOODon 2024 SODIUM, WHOLE BLOOD 138 Normal 136-145 [facility] Comment on above: Performed By: #### S ODIUM, WHOLE BLOOD ####[facility] RESPIRATORY [id number] [place] [address] [place] 30on 08-15-2024 30 Normal [facility] 30 Normal [facility] 30 Normal [facility] 30 Normal [facility] ANESon 08-15-2024 ANES Normal [facility] ANTI-XA (HEPARIN LEVEL)on HEPARIN UNFRACTIONATED (U/ML) IN PPP BY CHROMOGENIC METHOD 0.64 IU/mL Normal 0.3-0.7 [facility] Comment on above: Order Comment: Check anti-Xa level every 6 hours while on heparin infusion, or per protocol. Result Comment: [place] roxaban and Apixaban will interfere with the anti Xa assay used to monitor UFH and LMWH. Performed By: #### L [id number] ####[facility] (BEAKER)[address] [place] [address] HEPARIN UNFRACTIONATED (U/ML) IN PPP BY CHROMOGENIC METHOD 0.82 IU/mL High 0.3-0.7 [facility] Comment on above: Order Comment: Check anti-Xa level every 6 hours while on heparin infusion, or per protocol. Result Comment: [place] roxaban and Apixaban will interfere with the anti Xa assay used to monitor UFH and LMWH. Performed By: #### L [id number] ####[facility] (BEAKER)[address] [place] [address] HEPARIN UNFRACTIONATED (U/ML) IN PPP BY CHROMOGENIC METHOD 0.68 IU/mL Normal 0.3-0.7 [facility] Comment on above: Result Comment: [place] roxaban and Apixaban will interfere with the anti Xa assay used to monitor UFH and LMWH. Performed By: #### L [id number] ####[facility] (BEAKER)[address] [place] [address] HEPARIN UNFRACTIONATED (U/ML) IN PPP BY CHROMOGENIC METHOD 0.71 IU/mL High 0.3-0.7 [facility] Comment on above: Order Comment: Check anti-Xa level every 6 hours while on heparin infusion, or per protocol. Result Comment: [place] roxaban and Apixaban will interfere with the anti Xa assay used to monitor UFH and LMWH. Performed By: #### L [id number] ####[facility] HOSPITAL LAB (BEAKER)[address] [place] [address] CBCon 08-15-2024 Erythrocyte distribution width (RBC) [Ratio] 13.1 % Normal 11.5-15.0 [facility] Comment on above: Performed By: #### L [id number] ####[facility] [address] ERYTHROCYTE MEAN CORPUSCULAR HEMOGLOBIN CONCENTRATION (G/DL) BY AUTOMATED 33.3 g/dL Normal 32.0-35.0 [facility] Comment on above: Performed By: #### L [id number] ####[facility] ([facility] [address] Hematocrit (Bld) [Volume fraction] 46.8 % Normal 39.0-50.0 [facility] Comment on above: Performed By: #### L [id number] ####[facility] ([facility] [place] [address] Hemoglobin (Bld) [Mass/Vol] 15.6 g/dL Normal 13.0-17.0 [facility] Comment on above: Performed By: #### L [id number] ####[facility] ([facility] [place] [address] MCH (RBC) [Entitic mass] 29.8 pg Normal 27.0-33.0 [facility] Comment on above: Performed By: #### L [id number] ####[facility] (BEAKER)[address] [place] [address] MCV (RBC) [Entitic vol] 89.5 fL Normal 82.0-98.0 [facility] Comment on above: Performed By: #### L [id number] ####[facility] (BEAKER)[address] [place] [address] PLATELETS (10*3/UL) IN BLOOD AUTOMATED COUNT 178 10*3/uL Normal 150-400 [facility] Comment on above: Performed By: #### L [id number] ####[facility] (BEAKER)[address] [place] [address] RBC (Bld) [#/Vol] 5.23 10*6/uL Normal 4.20-5.70 [facility] Comment on above: Performed By: #### L [id number] ####[facility] (BEAKER)[address] [place] [address] WBC (Bld) [#/Vol] 6.03 10*3/uL Normal 4.00-10.60 [facility] Comment on above: Performed By: #### L [id number] ####[facility] (BEAKER)[address] [place] [address] CT ABDOMEN PELVIS W IV CONTR Anne 08-15-2024 CT ABDOMEN PELVIS W IV CONTRAST Normal [facility] CT CHEST W IV CONTRASTon CT CHEST W IV CONTRAST Normal [facility] Documentationon 08-15-2024 Documentation Normal [facility] PROTIME-INRon 08-15-2024 INR IN PPP BY COAGULATION ASSAY 1.06 Normal 0.90-1.10 [facility] Comment on above: Result Comment: [facility] P RECOMMENDED INR FOR WARFARIN THERAPY CONDITION INRPROPHYLAXIS OF VENOUS THROMBOSIS 2-3(HIGH-RISK SURGERY)TREATMENT OF VENOUS THROMBOSIS 2-3TREATMENT OF PULMONARY EMBOLISM 2-3PREVENTION OF SYSTEMIC EMBOLISM: 2-3 ACUTE MYOCARDIAL INFARCTION TISSUE HEART VALVES VALVULAR HEART DISEASE ATRIAL FIBRILLATION RECURRENT SYSTEMIC EMBOLISMMECHANICAL HEART VALVE 2.5-3.5 FROM: ORAL ANTICOAGULANTS. MECHANISM OF ACTION, CLINICAL EFFECTIVENESS, AND OPTIMAL THERAPEUTIC RANGE. CHEST 1995;108:231S-246S. Performed By: #### L [id number] ####[facility] ([facility])[address] [place] [address] PROTHROMBIN TIME (PT) IN PPP BY COAGULATION ASSAY 13.8 Seconds Normal 12.3-14.8 [facility] Comment on above: Performed By: #### L [id number] ####[facility] ([facility])[address] [place] [address] 30on 08-14-2024 30 Normal [facility] 30 Normal [facility] ANESon 08-14-2024 ANES Normal [facility] ANTI-XA (HEPARIN LEVEL)on HEPARIN UNFRACTIONATED (U/ML) IN PPP BY CHROMOGENIC METHOD 0.61 IU/mL Normal 0.3-0.7 [facility] Comment on above: Order Comment: Check anti-Xa level every 6 hours while on heparin infusion, or per protocol. Result Comment: [place] roxaban and Apixaban will interfere with the anti Xa assay used to monitor UFH and LMWH. Performed By: #### L [id number] ####[facility] ([facility])[address] [place] [address] APTTon 08-14-2024 ACTIVATED PARTIAL THROMBOPLASTIN TIME IN PPP BY COAGULATION ASSAY 77.7 Seconds High 25.0-35.0 [facility] Comment on above: Result Comment: Clin ical significance of the APTT is questionable in the presence of heparin. Performed By: #### L [id number] ####[facility] ([facility])[address] [place] [address] BASIC METABOLIC PANELon 07-21 [address] gap [Moles/Vol] 6 mmol/L Low 7-20 [facility] Comment on above: Performed By: #### L [id number] ####[facility] ([facility])[address] [place] [address] Calcium [Mass/Vol] 9.0 mg/dL Normal 8.6-10.3 [facility] Comment on above: Performed By: #### L [id number] ####[facility] (BEAKER)[address] [place] [address] Chloride [Moles/Vol] 104 mmol/L Normal 98-107 [facility] Comment on above: Performed By: #### L [id number] ####[facility] ([facility])[address] [place] [address] CO2 [Moles/Vol] 32 mmol/L High 21-31 [facility] Comment on above: Performed By: #### L [id number] ####[facility] ([facility] [place] [address] Creatinine [Mass/Vol] 0.91 mg/dL Normal 0.70-1.30 [facility] Comment on above: Performed By: #### L [id number] ####[facility] ([facility])[address] [place] [address] GLOMERULAR FILTRATION RATE ML/MIN/1.73 SQ M.PREDICTED 88.4 mL/min/1.73m*2 Normal >60.0 [facility] Comment on above: Result Comment: The [facility]???s estimated glomerular filtration rate (eGFR) will no longer include consideration of race in its calculation. The National [employer]???s eGFR Task Force developed new recommendations for the estimation of the glomerular filtration rate in the [place] They recommend immediate implementation of the new equation refit without the race variable in all laboratories because the calculation does not include race. In addition to not including race in the calculation and reporting, it included diversity in its development, and has acceptable performance characteristics and potential consequences that do not disproportionately affect any one group of individuals. Performed By: #### L [id number] ####[facility] (BEAKER)[address] [place] [address] Glucose [Mass/Vol] 90 mg/dL Normal 70-100 [facility] Comment on above: Performed By: #### L [id number] ####[facility] (BEAKER)[address] [place] [address] Potassium [Moles/Vol] 4.4 mmol/L Normal 3.5-5.1 [facility] Comment on above: Performed By: #### L [id number] ####[facility] (BEAKER)[address] [place] [address] Sodium [Moles/Vol] 138 mmol/L Normal 136-145 [facility] Comment on above: Performed By: #### L [id number] ####[facility] ([facility] [place] [address] Urea nitrogen [Mass/Vol] 16 mg/dL Normal 7-25 [facility] Comment on above: Performed By: #### L [id number] ####[facility] ([facility] [place] [address] UREA NITROGEN/CREATININE (MASS RATIO) IN SER/PLAS 17.6 Normal [facility] Comment on above: Performed By: #### L [id number] ####[facility] ([facility])[address] [place] [address] CBC WITH AUTO DIFFERENTIALon 08-14-2024 Basophils (Bld) [#/Vol] 0.03 10*3/uL Normal 0.00-0.20 [facility] Comment on above: Performed By: #### L [id number] ####[facility] ([facility] [place] [address] Basophils/100 WBC (Bld) 0.7 % Normal 0.0-1.0 [facility] Comment on above: Performed By: #### L [id number] ####[facility] (BEAKER)[address] [place] [address] Eosinophils (Bld) [#/Vol] 0.13 10*3/uL Normal 0.00-0.50 [facility] Comment on above: Performed By: #### L [id number] ####[facility] (BEAKER)[address] [place] [address] Eosinophils/100 WBC (Bld) 3.1 % Normal 0.0-6.0 [facility] Comment on above: Performed By: #### L [id number] ####[facility] ([facility] [place] [address] Erythrocyte distribution width (RBC) [Ratio] 12.7 % Normal 11.5-15.0 [facility] Comment on above: Performed By: #### L [id number] ####[facility] (BEAKER)[address] [address] ERYTHROCYTE MEAN CORPUSCULAR HEMOGLOBIN CONCENTRATION (G/DL) BY AUTOMATED 33.9 g/dL Normal 32.0-35.0 [facility] Comment on above: Performed By: #### L [id number] ####[facility] (BEAKER)[address] [address] Hematocrit (Bld) [Volume fraction] 46.3 % Normal 39.0-50.0 [facility] Comment on above: Performed By: #### L [id number] ####[facility] (BEAKER)[address] [address] Hemoglobin (Bld) [Mass/Vol] 15.7 g/dL Normal 13.0-17.0 [facility] Comment on above: Performed By: #### L [id number] ####[facility] (BEAKER)[address] [place] [address] Immature granulocytes (Bld) [#/Vol] 0.02 10*3/uL Normal 0.00-0.20 [facility] Comment on above: Performed By: #### L [id number] ####[facility] (BEAKER)[address] [place] [address] Immature granulocytes/100 WBC (Bld) 0.5 % Normal 0.0-1.0 [facility] Comment on above: Performed By: #### L [id number] ####[facility] (BEAKER)[address] [place] [address] Lymphocytes (Bld) [#/Vol] 1.03 10*3/uL Low 1.20-4.00 [facility] Comment on above: Performed By: #### L [id number] ####[facility] (BEAKER)[address] [place] [address] Lymphocytes/100 WBC (Bld) 24.9 % Normal 20.0-45.0 [facility] Comment on above: Performed By: #### L [id number] ####[facility] ([facility])[address] [place] [address] MCH (RBC) [Entitic mass] 30.6 pg Normal 27.0-33.0 [facility] Comment on above: Performed By: #### L [id number] ####[facility] ([facility])[address] [place] [address] MCV (RBC) [Entitic vol] 90.3 fL Normal 82.0-98.0 [facility] Comment on above: Performed By: #### L [id number] ####[facility] ([facility])[address] [place] [address] Monocytes (Bld) [#/Vol] 0.41 10*3/uL Normal 0.10-1.00 [facility] Comment on above: Performed By: #### L [id number] ####[facility] ([facility])[address] [place] [address] Monocytes/100 WBC (Bld) 9.9 % Normal 5.0-12.0 [facility] Comment on above: Performed By: #### L [id number] ####[facility] ([facility] [place] [address] Neutrophils (Bld) [#/Vol] 2.51 10*3/uL Normal 1.60-7.60 [facility] Comment on above: Performed By: #### L [id number] ####[facility] ([facility] [place] [address] Neutrophils/100 WBC (Bld) 60.9 % Normal 40.0-72.0 [facility] Comment on above: Performed By: #### L [id number] ####[facility] (BEAKER)[address] [place] [address] NRBC (PER 100 WBCS) BY AUTOMATED COUNT 0.0 % Normal 0 [facility] Comment on above: Performed By: #### L [id number] ####[facility] ([facility] [place] [address] PLATELETS (10*3/UL) IN BLOOD AUTOMATED COUNT 181 10*3/uL Normal 150-400 [facility] Comment on above: Performed By: #### L [id number] ####[facility] ([facility] [place] [address] RBC (Bld) [#/Vol] 5.13 10*6/uL Normal 4.20-5.70 [facility] Comment on above: Performed By: #### L [id number] ####[facility] ([facility])[address] [place] [address] WBC (Bld) [#/Vol] 4.13 10*3/uL Normal 4.00-10.60 [facility] Comment on above: Performed By: #### L [id number] ####[facility] ([facility])[address] [place] [address] CONSULTon 08-14-2024 CONSULT Normal [facility] HEMOGLOBIN A1Con 08-14-2024 Glucose [Mass/Vol] 114 mg/dL Normal [facility] Comment on above: Performed By: #### L [id number] ####[facility] ([facility])[address] [place] [address] HbA1c (Bld) [Mass fraction] 5.6 % Normal 4.0-6.0 [facility] Comment on above: Performed By: #### L [id number] ####[facility] ([facility] [place] [address] HPon 08-14-2024 HP Normal [facility] HP Normal [facility] HP [facility] LIPID PANELon 08-14-2024 CHOL/HDL 3.7 mg/dL Normal [facility] Comment on above: Performed By: #### L [id number] ####[facility] ([facility] [place] [address] Cholesterol [Mass/Vol] 157 mg/dL Normal 120-200 [facility] Comment on above: Performed By: #### L [id number] ####[facility] ([facility])[address] [facility] [place] [address] Magnesium [Mass/Vol] 76 mg/dL Normal <150 [facility] Comment on above: Result Comment: TRIG LYCERIDE REFERENCE RANGE:20 YEARS AND OLDER CARDIOVASCULAR RISKLESS THAN 150 mg/dL LOW [id number] TO 199 mg/dL BORDERLINE TTIC191 mg/dL AND GREATER HIGH RISK Performed By: #### L [id number] ####[facility] ([facility])[address] [facility] [place] [address] Magnesium [Mass/Vol] 99 mg/dL Normal 0-160 [facility] Comment on above: Performed By: #### L [id number] ####[facility] ([facility])[address] [facility] [place] [address] Magnesium [Mass/Vol] 43 mg/dL Normal 23-92 [facility] Comment on above: Performed By: #### L [id number] ####[facility] ([facility])[address] [facility] [place] [address] NON HDL CHOL. (LDL+VLDL) 114 Normal [facility] Comment on above: Performed By: #### L [id number] ####[facility] (BEAKER)[address] [facility] [place] [address] TOTAL VLDL-C 15 mg/dL Normal 0-40 [facility] Comment on above: Performed By: #### L [id number] ####[facility] [facility] [place] [address] MAGNESIUMon 08-14-2024 Magnesium [Mass/Vol] 2.1 mg/dL Normal 1.9-2.7 [facility] Comment on above: Performed By: #### L [id number] ####[facility] (BEAKER)[address] [facility] [place] [address] NURSNOTEon 08-14-2024 NURSNOTE Normal [facility] PHOSPHORUSon 08-14-2024 Magnesium [Mass/Vol] 2.9 mg/dL Normal 2.5-5.0 [facility] Comment on above: Performed By: #### L [id number] ####[facility] Triptease)[address] [place] [address] PROTIME-INRon 08-14-2024 INR IN PPP BY COAGULATION ASSAY 1.03 Normal 0.90-1.10 [facility] Comment on above: Result Comment: [facility] P RECOMMENDED INR FOR WARFARIN THERAPY CONDITION INRPROPHYLAXIS OF VENOUS THROMBOSIS 2-3(HIGH-RISK SURGERY)TREATMENT OF VENOUS THROMBOSIS 2-3TREATMENT OF PULMONARY EMBOLISM 2-3PREVENTION OF SYSTEMIC EMBOLISM: 2-3 ACUTE MYOCARDIAL INFARCTION TISSUE HEART VALVES VALVULAR HEART DISEASE ATRIAL FIBRILLATION RECURRENT SYSTEMIC EMBOLISMMECHANICAL HEART VALVE 2.5-3.5 FROM: ORAL ANTICOAGULANTS. MECHANISM OF ACTION, CLINICAL EFFECTIVENESS, AND OPTIMAL THERAPEUTIC RANGE. CHEST 1995;108:231S-246S. Performed By: #### L [id number] ####[facility] Triptease)[address] [place] [address] PROTHROMBIN TIME (PT) IN PPP BY COAGULATION ASSAY 13.5 Seconds Normal 12.3-14.8 [facility] Comment on above: Performed By: #### L [id number] ####[facility] Triptease)[address] [place] [address] PSA, SCREENINGon 08-14-2024 PROSTATE SPECIFIC AG (NG/ML) IN SER/PLAS 0.9 ng/mL Normal 0.4-4 [facility] Comment on above: Performed By: #### L [id number] ####[facility] Triptease)[address] [place] [address] TSHon 08-14-2024 THYROTROPIN (MIU/L) IN SER/PLAS BY DETECTION LIMIT <= 0.05 MIU/L 5.34 mIU/L Normal 0.34-5.60 [facility] Comment on above: Performed By: #### L [id number] ####[facility] ([facility])[address] [place] [address] TYPE AND SCREENon 08-14-2024 AB SCREEN Negative Normal [facility] Comment on above: Performed By: #### L [id number] ####[facility], ABO group Nom (Bld) O [facility] Comment on above: Performed By: #### L [id number] ####[facility], RH TYPE IN BLOOD Negative Normal [facility] Comment on above: Performed By: #### L [id number] ####[facility] BLOOD BANK, URINALYSISon 08-14-2024 BILIRUBIN, TOTAL PRESENCE IN URINE Negative Normal Negative [facility] Comment on above: Order Comment: Micro scopics not performed on urines with negative chemical reactions unless requested on original order. Performed By: #### L [id number] ####[facility] ([facility])[address] [place] [address] Clarity (U) Clear Normal Clear [facility] Comment on above: Order Comment: Micro scopics not performed on urines with negative chemical reactions unless requested on original order. Performed By: #### L [id number] ####[facility] ([facility])[address] [place] [address] Color (U) Light-Yellow Normal Colorless, Yellow, Light-[place] ow [facility] Comment on above: Order Comment: Micro scopics not performed on urines with negative chemical reactions unless requested on original order. Performed By: #### L [id number] ####[facility] ([facility] [place] [address] GLUCOSE (MG/DL) IN URINE Normal Normal Normal [facility] Comment on above: Order Comment: Micro scopics not performed on urines with negative chemical reactions unless requested on original order. Performed By: #### L [id number] ####[facility] ([facility] [place] [address] HEMOGLOBIN PRESENCE IN URINE Negative Normal Negative [facility] Comment on above: Order Comment: Micro scopics not performed on urines with negative chemical reactions unless requested on original order. Performed By: #### L [id number] ####[facility] ([facility])[address] [place] [address] Ketones Ql (U) Negative Normal Negative [facility] Comment on above: Order Comment: Micro scopics not performed on urines with negative chemical reactions unless requested on original order. Performed By: #### L [id number] ####[facility] ([facility])[address] [place] [address] LEUKOCYTE ESTERASE PRESENCE IN URINE BY TEST STRIP Negative Normal Negative [facility] Comment on above: Order Comment: Micro scopics not performed on urines with negative chemical reactions unless requested on original order. Performed By: #### L [id number] ####[facility] ([facility])[address] [place] [address] NITRITE PRESENCE IN URINE Negative Normal Negative [facility] Comment on above: Order Comment: Micro scopics not performed on urines with negative chemical reactions unless requested on original order. Performed By: #### L [id number] ####[facility] ([facility])[address] [place] [address] pH (U) 6.5 [pH] Normal 5.0-8.0 [facility] Comment on above: Order Comment: Micro scopics not performed on urines with negative chemical reactions unless requested on original order. Performed By: #### L [id number] ####[facility] ([facility])[address] [place] [address] Protein (U) [Mass/Vol] Negative Normal Negative [facility] Comment on above: Order Comment: Micro scopics not performed on urines with negative chemical reactions unless requested on original order. Performed By: #### L [id number] ####[facility] ([facility])[address] [place] [address] Specific gravity (U) [Rel density] 1.043 High 1.010-1.03 0 [facility] Comment on above: Order Comment: Micro scopics not performed on urines with negative chemical reactions unless requested on original order. Performed By: #### L [id number] ####[facility] ([facility])[address] [facility] [address] UROBILINOGEN (MG/DL) IN URINE Normal Normal Normal [facility] Comment on above: Order Comment: Micro scopics not performed on urines with negative chemical reactions unless requested on original order. Performed By: #### L [id number] ####[facility] ([facility])[address] [facility] [place] [address] Orders Onlyon 08-07-2024 Orders Only Normal [facility] Orders Onlyon 07-30-2024 Orders Only Normal [facility] CA ECHO DOPPLER COMPLETEon 0 07-22-2024 [place] [address] Cardiology Report Signed Patient: Emma James MR#: [id number] : 1950 Acct:[id number] Age/Sex: 73 / M ADM Date: 07/22/24 Loc: CARD Attending Dr: DENNIS IRIZARRY Ordering Physician: DENNIS IRIZARRY Date of Service: 07/22/24 Procedure(s): CA echo doppler complete Accession Number(s): [id number] cc: DENNIS IRIZARRY Patient Name: EMMA JAMES MR#: [id number] : 1950 Exam Date: 07/22/2024 Ordering Doctor: DR DENNIS IRIZARRY ECHOCARDIOGRAM REPORT PROCEDURE: CA ECHO DOPPLER COMPLETE INDICATIONS: Chest pain, Shortness of breath COMPARISON: None. DESCRIPTION: COMPLETE ECHOCARDIOGRAM Real-time transthoracic echocardiography with 2D, M-mode, spectral and color flow Doppler performed. QUALITY: Technical quality was good. LEFT VENTRICLE: Normal chamber size. Mild left ventricular hypertrophy. LV EF: Global left ventricular systolic function is mildly decreased. Visual estimation of left ventricular ejection fraction is 45-50%. Global hypokinesis. DIASTOLIC: Not adequately assessed due to heart rhythm. ATRIAL SEPTUM: Inadequately seen. LEFT ATRIUM: Normal chamber size. RIGHT ATRIUM: Mildly dilated. RIGHT VENTRICLE: Normal chamber size. Normal right ventricular systolic function. TRICUSPID VALVE: Normal mobility and thickness. No stenosis with mild regurgitation. No evidence of pulmonary hypertension. RVSP 24mmHg MITRAL VALVE: Normal mobility and thickness. No evidence of mitral valve stenosis. There is no mitral annular calcification. Mild mitral regurgitation. AORTIC VALVE: Normal trileaflet appearance. Mildly calcified aortic valve. Normal leaflet mobility. No evidence of aortic valve stenosis. AORTIC ROOT: Normal diameter and appearance. PULMONIC VALVE: Normal thickness and mobility. No stenosis. Trivial regurgitation. PERICARDIUM: No evidence of pericardial effusion. IVC: Collapses with inspirations. Mild dilatation measuring 2.3cm. CONCLUSION: 1. Global left ventricular systolic function is mildly decreased; visually estimated ejection fraction is 45 to 50% 2. Normal right ventricular size and systolic function 3. Mild left ventricular hypertrophy 4. The right atrium is mildly enlarged 5. Mild tricuspid regurgitation 6. Mild mitral regurgitation Adult Echocardiography Procedure Report Left Ventricle LVEDD (3.7 - 5.6 cm): 5.08 cm LVESD (2.2 - 4.0 cm): 3.54 cm LVIVS thickness (0.6 - 1.2 cm): 1.34 cm LVPW thickness (0.5 - 1.0 cm): 1.20 cm e': 0.08 m/s E - e': 6.42 LVOT Max Gradient: 1.82 mm[Hg] LVOT Area (cm2): 0.68 m/s Peak Velocity (LVOT): 0.68 m/s Mean Velocity (LVOT): 0.44 m/s LVOT Diameter 2.25 cm Left Ventricular Ejection Fraction: 51.06 % Left Atrium LA Volume Index (2D A2C): 31.50 ml/m2 Left Atrium Systolic Dimension: 4.22 cm Mitral Valve MV E to A Ratio: 1.45 Mitral Valve A-Wave Peak Velocity: 0.36 m/s Mitral Valve E-Wave Peak Velocity: 0.52 m/s Right Ventricle RV Internal Diastolic Dimension: 3.81 cm Aorta AO Root Diam: 3.40 cm Ascending Ao Diam: 3.32 cm, 3.36 cm Aortic Valve AoV Area (Peak Ed): 2.38 cm2, 2.38 cm2 AoV Area (VTI): 2.49 cm2, 2.49 cm2 Peak Velocity(Antegrade Flow): 1.12 m/s Peak Gradient(Antegrade Flow): 5.06 mm[Hg] Mean Velocity(Antegrade Flow): 0.82 m/s Mean Gradient(Antegrade Flow): 3.06 mm[Hg] Velocity Time Integral: 22.55 cm Tricuspid Valve Peak Velocity (Regurgitant Flow): 2.03 m/s, 1.98 m/s, 2.26 m/s Pulmonic Valve Mean Gradient: 3.10 mm[Hg], 2.86 mm[Hg] Mean Velocity: 0.83 m/s, 0.81 m/s Peak Velocity: 1.11 m/s Peak Gradient: 5.32 mm[Hg], 4.50 mm[Hg] Right Atrium Right Atrium Systolic Pressure: 97.21 ml, 97.21 ml Dictated by: Laina Mcqueen M.D. on 07/22/2024 at 16:27 Approved by: Laina Mcqueen M.D. on 07/22/2024 (more content not included)... [facility] Radiology, Radiologi MD jairo - 07/22/2024 [place] [address] Cardiology Report Signed Patient: Emma James MR#: [id number] : 1950 Acct:[id number] Age/Sex: 73 / M ADM Date: 07/22/24 Loc: CARD Attending Dr: DENNIS IRIZARRY Ordering Physician: DENNIS IRIZARRY Date of Service: 07/22/24 Procedure(s): CA echo doppler complete Accession Number(s): [id number] cc: DENNIS IRIZARRY Patient Name: EMMA JAMES MR#: [id number] : 1950 Exam Date: 07/22/2024 Ordering Doctor: DR DENNIS IRIZARRY ECHOCARDIOGRAM REPORT PROCEDURE: CA ECHO DOPPLER COMPLETE INDICATIONS: Chest pain, Shortness of breath COMPARISON: None. DESCRIPTION: COMPLETE ECHOCARDIOGRAM Real-time transthoracic echocardiography with 2D, M-mode, spectral and color flow Doppler performed. QUALITY: Technical quality was good. LEFT VENTRICLE: Normal chamber size. Mild left ventricular hypertrophy. LV EF: Global left ventricular systolic function is mildly decreased. Visual estimation of left ventricular ejection fraction is 45-50%. Global hypokinesis. DIASTOLIC: Not adequately assessed due to heart rhythm. ATRIAL SEPTUM: Inadequately seen. LEFT ATRIUM: Normal chamber size. RIGHT ATRIUM: Mildly dilated. RIGHT VENTRICLE: Normal chamber size. Normal right ventricular systolic function. TRICUSPID VALVE: Normal mobility and thickness. No stenosis with mild regurgitation. No evidence of pulmonary hypertension. RVSP 24mmHg MITRAL VALVE: Normal mobility and thickness. No evidence of mitral valve stenosis. There is no mitral annular calcification. Mild mitral regurgitation. AORTIC VALVE: Normal trileaflet appearance. Mildly calcified aortic valve. Normal leaflet mobility. No evidence of aortic valve stenosis. AORTIC ROOT: Normal diameter and appearance. PULMONIC VALVE: Normal thickness and mobility. No stenosis. Trivial regurgitation. PERICARDIUM: No evidence of pericardial effusion. IVC: Collapses with inspirations. Mild dilatation measuring 2.3cm. CONCLUSION: 1. Global left ventricular systolic function is mildly decreased; visually estimated ejection fraction is 45 to 50% 2. Normal right ventricular size and systolic function 3. Mild left ventricular hypertrophy 4. The right atrium is mildly enlarged 5. Mild tricuspid regurgitation 6. Mild mitral regurgitation Adult Echocardiography Procedure Report Left Ventricle LVEDD (3.7 - 5.6 cm): 5.08 cm LVESD (2.2 - 4.0 cm): 3.54 cm LVIVS thickness (0.6 - 1.2 cm): 1.34 cm LVPW thickness (0.5 - 1.0 cm): 1.20 cm e': 0.08 m/s E - e': 6.42 LVOT Max Gradient: 1.82 mm[Hg] LVOT Area (cm2): 0.68 m/s Peak Velocity (LVOT): 0.68 m/s Mean Velocity (LVOT): 0.44 m/s LVOT Diameter 2.25 cm Left Ventricular Ejection Fraction: 51.06 % Left Atrium LA Volume Index (2D A2C): 31.50 ml/m2 Left Atrium Systolic Dimension: 4.22 cm Mitral Valve MV E to A Ratio: 1.45 Mitral Valve A-Wave Peak Velocity: 0.36 m/s Mitral Valve E-Wave Peak Velocity: 0.52 m/s Right Ventricle RV Internal Diastolic Dimension: 3.81 cm Aorta AO Root Diam: 3.40 cm Ascending Ao Diam: 3.32 cm, 3.36 cm Aortic Valve AoV Area (Peak Ed): 2.38 cm2, 2.38 cm2 AoV Area (VTI): 2.49 cm2, 2.49 cm2 Peak Velocity(Antegrade Flow): 1.12 m/s Peak Gradient(Antegrade Flow): 5.06 mm[Hg] Mean Velocity(Antegrade Flow): 0.82 m/s Mean Gradient(Antegrade Flow): 3.06 mm[Hg] Velocity Time Integral: 22.55 cm Tricuspid Valve Peak Velocity (Regurgitant Flow): 2.03 m/s, 1.98 m/s, 2.26 m/s Pulmonic Valve Mean Gradient: 3.10 mm[Hg], 2.86 mm[Hg] Mean Velocity: 0.83 m/s, 0.81 m/s Peak Velocity: 1.11 m/s Peak Gradient: 5.32 mm[Hg], 4.50 mm[Hg] Right Atrium Right Atrium Systolic Pressure: 97.21 ml, 97.21 ml Dictated by: Laina Mcqueen M.D. on 07/22/2024 at 16:27 Approved by: Laina Mcqueen M.D. on 07/22/2024 at 16:31 Dictated By: Laina Mcqueen M.D. Signed By: 07/22/24 1632 DD/ 1631 TD/TT: Manager Quality Compliance: [facility] Radiology Study observation (narrative) [facility] CA ECHO DOPPLER COMPLETEOrde red By: Radiologist Radiology on 07-22-2024 [facility] Work Phone: XR CHEST 2 VIEWSon XR CHEST 2 VIEWS EXAM: XR Chest, Two Views. REASON FOR EXAM: Shortness of breath on exertion for one month, no other chest complaints at this time. COMPARISON: None FINDINGS: Two hypoventilatory images. The cardiac and mediastinal silhouettes are normal for size. The trachea is not displaced. Pulmonary vasculature is normal. The lungs are clear. The regional skeleton and pleural surfaces are without significant abnormality. IMPRESSION: No acute cardiopulmonary abnormalities. This report is generated using voice recognition reporting (Powerscribe). On occasion, Powerscribe erroneously drops words from the report or replaces the spoken word with a similar sounding word. Please call with any questions/concerns regarding the report. Dictated and transcribed 07/15/2024/tm This report has been electronically signed and approved by the interpreting radiologist. Normal Not Available XR Chest 2 Viewson EXAM: XR Chest, Two Views. REASON FOR EXAM: Shortness of breath on exertion for one month, no other chest complaints at this time. COMPARISON: None FINDINGS: Two hypoventilatory images. The cardiac and mediastinal silhouettes are normal for size. The trachea is not displaced. Pulmonary vasculature is normal. The lungs are clear. The regional skeleton and pleural surfaces are without significant abnormality. IMPRESSION: No acute cardiopulmonary abnormalities. This report is generated using voice recognition reporting (Nextdoorcribe). On occasion, Powerscribe erroneously drops words from the report or replaces the spoken word with a similar sounding word. Please call with any questions/concerns regarding the report. Dictated and transcribed 07/15/2024/tm This report has been electronically signed and approved by the interpreting radiologist. Lincoln Mederos MD - 07/15/2024 EXAM: XR Chest, Two Views. REASON FOR EXAM: Shortness of breath on exertion for one month, no other chest complaints at this time. COMPARISON: None FINDINGS: Two hypoventilatory images. The cardiac and mediastinal silhouettes are normal for size. The trachea is not displaced. Pulmonary vasculature is normal. The lungs are clear. The regional skeleton and pleural surfaces are without significant abnormality. IMPRESSION: No acute cardiopulmonary abnormalities. This report is generated using voice recognition reporting (Nextdoorcribe). On occasion, Powerscribe erroneously drops words from the report or replaces the spoken word with a similar sounding word. Please call with any questions/concerns regarding the report. Dictated and transcribed 07/15/2024/tm This report has been electronically signed and approved by the interpreting radiologist. [facility] [employer] Radiology Study observation (narrative) [facility] [employer] XR Chest 2 ViewsOrdered By: Lincoln Devine on 07-15-2024 [facility] [employer] Work Phone: MR KNEE RIGHT WO IV CONTRAST on 04-29-2024 MR KNEE RIGHT WO IV CONTRAST Exam: MR KNEE RIGHT WO IV CONTRAST History: Knee pain Technique: Multiplanar multisequence MRI of the knee was performed without contrast. Comparison: Radiographs April 09, 2024 Findings: Quadriceps and patellar tendons are intact. Small joint effusion. Anterior and posterior cruciate ligaments are intact. The medial collateral ligament, lateral collateral ligament, and popliteus are intact. Complex tear of the body through posterior horn of the medial meniscus including horizontal tear of the posterior horn and flap tear of the body with displaced meniscus flap located inferiorly along the periphery of the medial tibial plateau. Amorphous signal abnormality within the body of the lateral meniscus may represent postsurgical changes/scarring or complex tear. Numerous tiny partial and full-thickness cartilage defects of the patellofemoral compartment with several tiny foci of subcortical bone marrow edema of the patella. Popliteal fossa structures are intact. No Torres cyst. IMPRESSION: Complex tear of the body through posterior horn of the medial meniscus. Complex tear of the body of the lateral meniscus versus postsurgical changes/scarring. Patellofemoral osteoarthritis. ELECTRONICALLY SIGNED BY: Dennis Bates, DO Normal Not Available No Panel Informationon 04-09 Celso Montano NP 12:42 PM L Inj/Asp: R knee on 04/09/2024 12:39 PM Indications: pain Details: 21 G needle, anterolateral approach Medications: 40 mg methylPREDNISolone acetate 40 MG/ML Outcome: tolerated well, no immediate complications Site cleaned with isopropyl alcohol Procedure, treatment alternatives, risks and benefits explained, specific risks discussed. Consent was given by the patient. [facility] XR Knee - right 1 or 2 Views on 04-09-2024 Imaging Result: 04/09/2024: AP and lateral of right knee mild narrowing of the medial joint line with evidence of flattening of the articular surfaces to the medial tibial plateau and medial femoral condyle. There was evidence of subchondral sclerosis to the medial joint line and patellofemoral joint. There is marginal osteophytes noted to the patellofemoral joint. There is no evidence of fracture dislocations. Bony structures viewed showed appropriate ossification. Impression: Mild right knee osteoarthritis, No acute bony process noted. 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 [facility] Radiology Study observation (narrative) [facility] CBC panel Auto (Bld)on 03-23 Erythrocyte distribution width (RBC) [Ratio] 13.6 % 11.6 - 15.4 % [facility] Hematocrit (Bld) [Volume fraction] 45.8 % 37.5 - 51.0 % [facility] Hemoglobin (Bld) [Mass/Vol] 15.3 g/dL 13.0 - 17.7 g/dL [facility] MCH (RBC) [Entitic mass] 29.9 pg 26.6 - 33.0 pg [facility] MCHC (RBC) [Mass/Vol] 33.4 g/dL 31.5 - 35.7 g/dL [facility] MCV (RBC) [Entitic vol] 90 fL 79 - 97 fL [facility] Platelets (Bld) [#/Vol] 197 10*3/uL [facility] RBC (Bld) [#/Vol] 5.11 10*6/uL [facility] WBC (Bld) [#/Vol] 5.6 10*3/uL [facility] Laboratory - Chemistry and C hemistry - challengeon 03-23-2024 Albumin [Mass/Vol] 4.3 g/dL 3.8 - 4.8 g/dL [facility] ALP [Catalytic activity/Vol] 85 U/L [facility] ALT [Catalytic activity/Vol] 19 U/L [facility] AST [Catalytic activity/Vol] 21 U/L [facility] Bilirubin [Mass/Vol] 0.5 mg/dL 0.0 - 1 .2 mg/dL [facility] Calcium [Mass/Vol] 9.3 mg/dL 8.6 - 10. 2 mg/dL [facility] Chloride [Moles/Vol] 102 mmol/L 96 - 10 6 mmol/L [facility] CO2 [Moles/Vol] 26 mmol/L 20 - 29 mmol/L [facility] Creatinine [Mass/Vol] 0.93 mg/dL 0.76 - 1.27 mg/dL [facility] Free PSA [Mass/Vol] 0.2 ng/mL N/A [facility] Comment on above: Reginaldo ECLIA methodol ogy. Free PSA/Total PSA [Mass fraction] 50 % [facility] Comment on above: The table below list s the probability of prostate cancer for men with non-suspicious LARA results and total PSA between 4 and 10 ng/mL, by patient age (Dar et al, MARGOT 1998, 279:1542). % Free PSA 50-64 yr 65-75 yr 0.00-10.00% 56% 55% 10.01-15.00% 24% 35% 15.01-20.00% 17% 23% 20.01-25.00% 10% 20% >25.00% 5% 9% Please note: Dar et al did not make specific recommendations regarding the use of percent free PSA for any other population of men. GFR/1.73 sq M.predicted among non-blacks MDRD (S/P/Bld) [Vol rate/Area] 86 mL/min/{1.73_m2} 59 - PINF mL/min/1.7 3 [facility] Globulin (S) [Mass/Vol] 2.3 g/dL 1.5 - 4.5 g/dL [facility] Glucose [Mass/Vol] 100 mg/dL High 70 - 99 mg/dL [facility] Potassium [Moles/Vol] 4.9 mmol/L 3.5 - 5.2 mmol/L [facility] Prostate specific Ag [Mass/Vol] 0.4 ng/mL 0.0 - 4.0 ng/mL [facility] Comment on above: [place] ECLIA methodol ogy. According to the [place] [employer], Serum PSA should decrease and remain at undetectable levels after radical prostatectomy. The AUA defines biochemical recurrence as an initial PSA value 0.2 ng/mL or greater followed by a subsequent confirmatory PSA value 0.2 ng/mL or greater. Values obtained with different assay methods or kits cannot be used interchangeably. Results cannot be interpreted as absolute evidence of the presence or absence of malignant disease. Protein [Mass/Vol] 6.6 g/dL 6.0 - 8.5 g/dL [facility] Sodium [Moles/Vol] 140 mmol/L 134 - 144 mmol/L [facility] Urea nitrogen [Mass/Vol] 21 mg/dL 8 - 27 mg/dL [facility] Urea nitrogen/Creatinine [Mass ratio] 23 mg/mg 10 - 24 [facility] Lipid 1996 panelon 4 Cholesterol [Mass/Vol] 202 mg/dL High 100 - 199 mg/dL [facility] Cholesterol in HDL [Mass/Vol] 42 mg/dL 39 - PINF mg/dL [facility] Cholesterol in LDL [Mass/Vol] 115 mg/dL High 0 - 99 mg/dL [facility] Cholesterol in VLDL [Mass/Vol] 45 mg/dL High 5 - 40 mg/dL [facility] Triglyceride [Mass/Vol] 256 mg/dL High 0 - 149 mg/dL [facility] No Panel Informationon 03-23 Interpretation and review of laboratory results Abnormal [facility] Performed at: 01 - [address] [id number] Cook Apprentice: Tim Tate PhD, Phone: [phone] [facility] OPERATIVE NOTEon 01-12-2018 OPERATIVE NOTE OPERATIVE NOTEOPERAT ION DATE: [id number]:General.KS EOPERATIVE DIAGNOSIS: Bilateral inguinal hernias, left worse than right.POSTOPERATIVE DIAGNOSIS:Same with Path pending.PROCEDURE NAME:Bilateral inguinal herniorrhaphy with Bassini repair and meshoverlay.ESTIMATED BLOOD LOSS: Less than 10 mL.COMPLICATIONS: None.DISPOSITION: To the Recovery Room in stable condition.PROCEDURE: The patient was brought to the Operative Suite where he was placedin the supine position. General anesthesia by LMA is induced. He was thenprepped and draped in the usual fashion for this procedure. A modest left groinincision was made and carried sharply down to the fascia. 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 The external abdominis obliquefibers were reflected caudad and cephalad. The cord was circumferentiallydissected and the cremasteric fibers taken down. A [place] was passed aroundand it was retracted to the caudal aspect of the incision. Dissecting themedial aspect of the cord at the internal ring, a hernia sac was identified andit was dissected away from cord structures. Immediately adjacent, cord lipomawas also removed. The floor of the canal was now examined. The hernia sac wasdissected away from the cord structures, clamped and transected. The end wascut off and submitted to Pathology. The floor of the canal was now carefullyexamined and the transversalis fascia beginning at the conjoined tendon wasapproximated to Poupart's fascia in a medial and lateral fashion with suturesof #0 Tycron x5. After completion, a piece of mesh was selected and cut to sizeand it was pexed into the floor of the canal and the ends dovetailed and passedaround the cord. After completion of this, the wound was closed withinterrupted running sutures of 3-0 Vicryl. The skin was closed with nakia.Sterile dressing was placed over all. Next, attention was turned to the rightinguinal region where a second hernia was noted. A symmetrical incision wasmade in this site as well and the incision carried sharply down. The fascia wasencountered and the external abdominal oblique fibers were longitudinallyincised and reflected caudad and cephalad. The cord was dissected free and aPenrose passed around. 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 The floor was now carefully examined and cleanedof areolar connective tissue. The floor of the canal was seen to be quite weak.The shelving portion of Poupart's ligament was approximated to thetransversalis fascia beginning at the conjoined tendon and ending laterally.After the placement of five interrupted sutures, the floor was reformed. Thecord was then returned and the mesh was sewn into place in the floor of thecanal with four sutures of 3-0 Vicryl x4. The cord was returned to it's normalanatomic position and the Ayo's fascia was closed over as was the skin.Sterile dressing is placed over. The patient tolerated the procedure well. Hewas taken to the Recovery Room in stable condition.[facility] Signed and Approved by: DR SONY LLOYD01/19/2018 10:51:00 Normal [facility] OVER READ - NCon 07-17-2017 OVER READ - NC DATE OF EXAM: Jul 17 2017 2:58PMCLINICAL HISTORY/ Name: JAMEY JAMESTUDY:OVER READ - NC; 07/17/2017 2:58 pmINDICATION:score. Hypercholesterolemia. Screening.COMPARISON:None. CESSION NUMBER(S):[id number] CLINICIAN:DENNIS LINK:Contiguous unenhanced axial images were obtained through the mid chest for calcium score evaluation. Calcium score portion will be interpreted separately. Images are submitted for over-read.FINDINGS:Few tiny mediastinal lymph nodes are not pathologically enlarged. There is trace fluid toward the superior pericardial recess without significant pericardial effusion. Included esophageal segment and included portion of the upper abdomen are unremarkable. Mild basilar atelectasis is present. No pleural effusion or pneumothorax is seen mild anterior endplate spurring present in the lower thoracic spine.CONCLUSION: IMPRESSION:No significant incidental findings.This interpretation, provided by the radiologists of [facility], excludes evaluation of the cardiovascular system, which iscovered in a separate report issued by the ordering cardiologists. The radiologists of [facility] have no responsibilityfor evaluating the structures of the cardiovascular system. Normal [facility] C-Reactive Proteinon 017 C reactive protein (CRP) 0.1 mg/dL Normal <0.9 [facility] Comment on above: Performed By: #### W SR, CMP, CRP, RF, CCP ####[facility], [place] [phone] CCP Antibody, IgGon 03-13-20 17 CCP Antibody, IgG <15 Normal <20 [facility] Comment on above: Result Comment: < 20 units: Tbxdzktj86-83 units: Weak Awklfetw13-72 units: Moderate Positive> 60 units: Strong Positive Performed By: #### W SR, CMP, CRP, RF, CCP ####[facility] [address], [place] [phone] CNOVon 03-13-2017 CNOV Office Visit (RHEUMN) ----EMMA JAMES ([id number]) 1950 MDate Time Provider Pjbrsppzah62/23/17 1:25 PM DONTAE RUSSELL) RHEUMN During your visit today, we recorded the following information about you: Temperature Pulse Blood pressure Weight 97.6 degrees 71/minute 119/80 93.3 kg Height 1.791 Bony Dasilva MD 03/19/2017 1:41 PM AddendumMartin Memorial Hospital Orthopaedic ANDamp; Rheumatologic InstituteDepartment of Rheumatic and Immunologic DiseasesThis consult was requested by the doctor listed below for an opinion regardingthe chief complaint listed below, and my final recommendations will becommunicated to the requesting health care provider by way of the sharedmedical record for internal providers or letter via the USPS for externalproviders.Consulting Physician: SelfSUBJECTIVE:CC: Joint painHistory of Present Illness:Emma James is a 66 year old male with osteoarthritis (s/p bilateralTKA and R rotator cuff repair), glaucoma, and GERD who presents for furtherevaluation of his joint pain.He was previously evaluated by Dr. Quintanilla in 03/2010 and 03/2012. He wasprimarily treated with NSAIDs and referred for PT for his low back pain. Atinitial time of presentation, there was concern that he could have RA but thiswas thought less likely based on exam, labs, and x-rays not showing anydeformities.He now returns for evaluation due to progressively more severe pain affectinghis bilateral hands, feet, and neck. He'll also occasionally have pain in hisleft shoulder and bilateral knees though these are more infrequent. 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 His hand pain in particular has prevented him frombeing able to do some of his normal activities. He is still able to do finetasks. He does wake up with some morning stiffness but most of his pain occurswhile working and after a day at work. The pain in his hands does primarilyaffect his MCPs and PIPs, left ANDgt; right hand. He doesn't notice significantswelling. He does experience some numbness and tingling in all of his fingers.This more typically occurs at rest than with activity.His other main complaint is of neck pain that primarily affects him at nightand prevents him from sleeping. He has tried multiple pillows without mucheffect. It does not radiate down his arms. It mostly stays localized to theneck. Not associated with headaches. Worsens with certain positions andmovements. It mostly stays in the midline of his neck.He has been taking Tramadol 50 mg QAM and Ibuprofen 400-800 mg QHS. Both ofthese do help with his pain. He also uses a vibrating machine which helps about50%. Also using some topical agents including Voltaren gel. He does report ahistory of PUD but this was a long time ago. Denies cardiac issues or HTN.Review of Systems:Positive for:EYES: Loss of vision, DrynessEAR, NOSE, MOUTH, THROAT: Swallowing problemsMUSCULOSKELETAL: Joint pain, Morning stiffness in joints, Back painSKIN: Hair lossNEUROLOGIC: Numbness or tinglingALLERGIC/ IMMUNOLOGIC: Allergies (other than medications)Otherwise, a complete 14 point ROS was obtained and was negative except forabove.Past Medical History:PAST MEDICAL HISTORYDiagnosis Date- GERD (gastroesophageal reflux disease)- OsteoarthritisPast Surgical History:PAST SURGICAL HISTORYProcedure Laterality Date- KNEE ARTHROSCOPY/SURGERY Bilateral- ROTATOR CUFF REPAIR s0Fadawj History:No family history on file.Social History:Social HistorySubstance Use Topics- Smoking status: Not on file- Smokeless tobacco: Not on file- Alcohol use Not on fileMedications:ibuprofen 800 mg tablet Take 1 tablet by mouth as needed (for pain.).multivitamin (DAILY MULTIPLE) tablet Take 1 tablet by mouth once daily.Glucosamine-Chondroit- Vit C-Mn (GLUCOSAMINE CHONDROITIN MAXSTR) 500-400 mg capTake 1 capsule by mouth once daily.omeprazole (PRILOSEC) 20 mg ORAL capsule Take one(1) capsule daily.traMADOL (ULTRAM) 50 mg ORAL tablet Take one(1) tablet every four(4) to six(6)hours as needed for pain.niacin controlled release 750 mg ORAL CR tablet Take one(1) tablet daily atbedtime.Allergies:ALLERGIE SAllergen Reactions- Processed Poultry [* GI UpsetOBJECTIVE:Physical Examination:VITALS: BP 119/80 Pulse 71 Temp 36.4 ?C (97.6 ?F) (Oral) Ht 179.1 cm (5'10.5ANDquot;) Wt 93.3 kg (205 lb 9.6 oz) BMI 29.08 kg/w0RCCWMCW: Well appearing, sitting in chair, in NAD.HEENT: NCAT, MMM, EOMI, no scleral icterus, oropharynx clear and withoutlesion, tonsillar exudates, or oral ulcerations.NECK: Normal ROM. No appreciable JVD, cervical LAD, or thyromegaly.CV: Normal rate, regular rhythm with normal S1/S2. No appreciablemurmur/rub/gallop .PULM: Normal WOB and RR on RA. Lung zepeda CTA bilaterally without appreciablewheezes or crackles.GI: NABS, soft, nondistended, nontender.EXT: 2+ radial and DP pulses. No edema.SKIN: Warm, dry, no significant rashes, no significant bruising.NEURO: AOx3. Mental status and speech normal. Cranial nerves grossly intact.5/5 motor strength. Intact sensation to light touch throughout including infingertips. Negative Phalen's.PSYCH: Pleasant mood, appropriate affect.MSK: Neck: Flexion, extension, and lateral rotation WNL. Spine: Intact ROM. No TTP over the posterior C-spine. Shoulders: Intact ROM without reported pain. No appreciable swelling ortenderness with palpation. Some crepitus. Elbows: No flexion contractures. No appreciable swelling, deformities, ortenderness with palpation. Wrists: No limitation of flexion or extension. No appreciable swelling ortenderness with palpation. Slight ulnar deviation, though easily correctable. Hands: No evidence of synovitis or tenderness with palpation. Left 3rdMCP slightly swollen but only tender with aggressive palpation, some painreproduced with passive flexion/extension. Able to make full fists bilaterally.No thenar atrophy. Some scattered Heberden's nodes. Hips: Intact ROM. No tenderness with palpation. Knees: No gross deformity. No appreciable effusion. No tenderness withpalpation of joint lines. Mild crepitus bilaterally. Ankles: No limitation of plantarflexion or dorsiflexion. No appreciableeffusion. No tenderness with palpation. Feet: No evidence of synovitis or tenderness with palpation.Investigations:Mos t recent labs:No results found for: WBC, HGB, HCT, PLT, CHOL, TRIG, ALT, AST, ALKPHOS, NA, K,CO2, CREATININE, BUN, CALCIUM, TSH, PSA, INR, HGBA1C, UALBCR, HEPCABPrevious labs obtained: NonePrevious imaging obtained:XR T/L-spine ? 03/28/12Normal alignment in the thoracic and lumbar spine. No fracture identified, noradiographic signs of spondylitis. Mild to moderate degenerative disease atmultiple levels in the lumbar spine.XR Bilateral Hand ? 03/28/12Benign sclerosis in the proximal phalanx of the ring finger on the right hand.Degenerative type small cysts and some of the metacarpal heads, no marginalerosions identified. Joint spaces are maintained. No chondrocalcinosis.XR Bilateral Foot ? 04/13/10Mild flexion deformities of the third and fourth digits are presentbilaterally. The bone mineralization is normal. No fractures or dislocationsare present. The joint spaces are preserved. No soft tissue swelling or softtissue masses are seen. No abnormal calcifications are present.ASSESSMENT ANDamp; PLAN:Emma James is a 66 year old male with osteoarthritis (s/p bilateralTKA and R rotator cuff repair) and GERD who presents for further evaluation ofhis pain.Polyarthritis - Affecting primarily hands, shoulders, knees, feet. Likelyrelated to osteoarthritis but some aspects do sound inflammatory (MCP/PIPinvolvement, pain both with rest and after activity, good response to NSAIDs).Less likely CPPD or RA.? Ordered for bilateral hand x-rays to assess for any new inflammatory changescompared to prior? Ordered for bilateral knee x-rays to assess for any changes c/w CPPD? Checking CMP, ESR, CRP, RF, anti-CCP for evaluation of renal function(NSAIDs) and to help rule out other causes of inflammatory arthritis? Recommended addition of Tylenol (up to 3g daily in divided doses)? Prescribed Cymbalta 30 mg QHS? Counseled on side effects of NSAIDs and when to potentially discontinue use? Prescribed Celebrex 100 mg BID PRN in place of Ibuprofen for gentler effecton stomach due to h/o PUDChronic neck pain - No radicular symptoms. Seems c/w degenerative arthritis aswell.? Work-up as above? Pain control as above? If worsening, could consider x-ray C-spineGERD and h/o PUD -? On Prilosec 20 mg QDImpression and recommendations/plan were discussed with the patient in person.Patient will be updated with results of above lab work or studies as ordered.Documentation of this visit will be sent to appropriate providers involved withpatient?s care.Discussed with rheumatology staff, Dr. Dasilva.Dontae Russell, MDRheumatology Fellow, [phone] 2016 1:51 PM++++++++++++++++++++++++++ ++++++++++++++++++++++++++++ +++++++++++++RHEUMATOLOGY STAFF PHYSICIAN NOTEPatient seen and evaluated with Dr Russell on March 13, 2017I have reviewed the note documented by Dr Russell and I personallyparticipated in the haro components. I have discussed the case and management ofthe patient's care.Agree with above findings, assessment and plan of care .66 yo RH male w chronic pain in neck, hands ANDgt; feet, indicates mcps/pips.Reports difficulty making fists in am, ANDquot;cannot skin a pigANDquot;, noparesis or paresthesiae. Good relief from tramadol in am + ibuprofen 400-800mgin pm. reports that he has severe pain at end of day. Pt concurs pain isworse in evening. Denies erythema, warmth or swelling of UE or LE joints. Onexam: stoic; L 3MCP S0T1L1 ; some arsen's nodes; wrists S0T0L1 milddecrease ext/ flex britni; intact sensation to PP/cold in UE including Mediannerve distribution, intact APB/OPB britni; negative flexor tenosynovitis (triggerfinger); xrays show mild osteoarthritis of pips, no chondrocalcinosis. Mostlikely osteoarthritis though cannot rule out some mild inflammatory component.Although no findings of carpal tunnel syndrome on exam, cannot rule out somecomponent of neuropathic pain given patient's description. Ddx cppd, early RA,atypical osteoarthritis .Will obtain xrays rule out erosions/chondrocalcinosis;t ry celebrex bid prn rather than ibuprofen ( risks and benefits of nsaidsdiscussed with patient ; hx remote pud ANDgt;40 yrs ago). Agree with trial ofduloxetine.Jm Dasilva MD, MSc, CPCDontae Russell MD 03/13/2017 3:25 PM AddendumIt was a pleasure seeing you in [facility] today.MEDICATIONS:- You can take Ibuprofen up to 400-800 mg up to two times a day. Do not take italongside the Celebrex. When taking Celebrex, you can take 100 mg (1 tablet) upto 2 times a day.- You can take Tylenol 325-650 mg up to 3-4 times a day.- Start taking Cymbalta 30 mg every night.- Continue taking Tramadol up to once a day.LABS: Please stop by the laboratory to get blood drawn on the first floor ifwe discussed obtaining blood work.X-RAYS: Please stop by radiology for x-rays on the second floor if wediscussed obtaining imaging.Follow-up: We will see you back in clinic as needed. To make an appointmentyourself, please call [phone] (central scheduling). Call [phone] [facility] with the rheumatology patient coordinator front desk.I will contact you by phone or by letter if there are results/recommendationsstill pending.My clinic contact information is...Juaquin Perry, Orthopaedic and Rheumatologic InstituteMartin Memorial HospitalTelephone: [phone]: [phone]: [phone]: [facility]0 [facility] / [place] [id number] Provider: SELF [200]Allergies As of Date: 03/13/2017 Noted Allergy Reactionprocessed poultry [Other] 04/13/2010 8 - GI Upset Comments: PROCESSED MEATSDate Reviewed: 03/13/2017Reviewed by: Dontae Russell (Fel) - Fully AssessedReason for Visit: Arthritis [10]Primary Visit Diagnosis:Osteoarthritis, unspecified osteoarthritis type, unspecified site [M19.90] Other Visit Diagnoses:Polyarthritis of multiple sites (HCC) [M06.4] Chronic neck pain [M54.2, G89.29] Gastroesophageal reflux disease without esophagitis [K21.9]Order(s):COMP METABOLIC PANEL [SQCMP] Order #: [id number] FUTURE SED RATE WESTERGREN [SQWSR] Order #: [id number] FUTURE C-REACTIVE PROTEIN (CRP) [SQCRP] Order #: [id number] FUTURE RHEUMATOID FACTOR BL [SQRF] Order #: [id number] FUTURE CCP ANTIBODY IGG [SQCCP] Order #: [id number] FUTURE XR HAND GENERAL 3V PA/LAT/OBL LT [9202817] Order #: [id number] FUTURE XR HAND GENERAL 3V PA/LAT/OBL RT [6063127] Order #: [id number] FUTURE XR KNEE SURVEY ARTHRITIS 1V AP BILAT [[id number]] Order #: [id number] FUTURE acetaminophen (TYLENOL) 325 mg tabletTake 2 tablets by mouth every 4 hours as needed. for pain.Disp: 60 tabletRfl: 0 DULoxetine (CYMBALTA) 30 mg capsuleTake 1 capsule by mouth once daily.Disp: 30 capsuleRfl: 0Prescriptions as of 03/13/2017 Sig: TRAMADOL 50 MG TABLET Take 50 mg by mouth once tyra* FENOFIBRATE MICRONIZED 134 MG* Take 134 mg by mouth once nanette* LATANOPROST 0.005 % EYE DROPS daily at bedtime. * MULTIVITAMIN TABLET Take 1 tablet by mouth once d* * OMEPRAZOLE 20 MG CAPSULE,DEEPA* Take one(1) capsule daily. ACETAMINOPHEN 325 MG TABLET Take 2 tablets by mouth every* DULOXETINE 30 MG CAPSULE,DEEPA* Take 1 capsule by mouth once *X CELECOXIB 100 MG CAPSULE Take 1 capsule by mouth twice*Medication notes this encounter FENOFIBRATE MICRONIZED 134 MG CAPSULE >> Makayla Stevenson 03/13/2017 2:12 PM >> MAKAYLA STEVENSON MonMar 13, 2017 2:12 PM Received from: External Pharmacy Received Sig: TAKE ONE CAPSULE BY MOUTH DAILY LATANOPROST 0.005 % EYE DROPS >> Makayla Stevenson 03/13/2017 2:12 PM >> MAKAYLA STEVENSON MonMar 13, 2017 2:12 PM Received from: External PharmacyProblem List As Of Date: 03/13/2017(None) Other instructions from your clinician: It was a pleasure seeing you in [facility]'s rheumatology office today. MEDICATIONS: - You can take Ibuprofen up to 400-800 mg up to two times a day. Do not take it alongside the Celebrex. When taking Celebrex, you can take 100 mg (1 tablet) up to 2 times a day. - You can take Tylenol 325-650 mg up to 3-4 times a day. - Start taking Cymbalta 30 mg every night. - Continue taking Tramadol up to once a day. LABS: Please stop by the laboratory to get blood drawn on the first floor if we discussed obtaining blood work. X-RAYS: Please stop by radiology for x-rays on the second floor if we discussed obtaining imaging. Follow-up: We will see you back in clinic as needed. To make an appointment yourself, please call [phone] (central scheduling). Call [phone] to speak with the rheumatology patient coordinator front desk. I will contact you by phone or by letter if there are results/recommendations still pending. My clinic contact information is... Dontae Russell MD Fellow, Orthopaedic and Rheumatologic [place] [facility] Appointment: [phone] Address: [address] [facility] / [place], [place] [address]Prescriptions ordered this encounter Disp Refills Start End ACETAMINOPHEN 325 MG TABLET 60 t* 0 03/13/2017 Route: ORAL Sig: Take 2 tablets by mouth every 4 hours as needed. for pain. CELECOXIB 100 MG CAPSULE 60 c* 1 03/13/2017 03/14/2017 Route: ORAL Sig: Take 1 capsule by mouth twice daily. Disc: Medical Contraindication DULOXETINE 30 MG CAPSULE,DELAYED REL* 30 c* 0 03/13/2017 Route: ORAL Sig: Take 1 capsule by mouth once daily.Medications Discontinued During This Encounter traMADOL (ULTRAM) 50 mg ORAL tablet 0 04/13/2010 03/13/2017 Class: Med Update Route: ORAL Sig: Take one(1) tablet every four(4) to six(6) hours as needed for pain. Disc: Course of therapy completed niacin controlled release 750 mg ORA* 0 04/13/2010 03/13/2017 Class: Med Update Route: ORAL Sig: Take one(1) tablet daily at bedtime. Disc: Course of therapy completed ibuprofen 800 mg tablet 03/28/2012 03/13/2017 Class: Historical Med Route: ORAL Sig: Take 800 mg by mouth daily at bedtime. Disc: Course of therapy completed Nwpeuxroajt-Gwhbsswaa-Tsi C-Mn (GLUC* 03/28/2012 03/13/2017 Class: Historical Med Route: ORAL Sig: Take 1 capsule by mouth once daily. Disc: Course of therapy completedDisposition: Return if symptoms worsen or fail to improve.Follow-up and Disposition History RecordedEncounter Number: [id number] Status:Closed by JM DASILVA on 03/19/17 Normal [facility] Comp Metabolic Panelon 03-13 Alanine aminotransferase (ALT) 22 U/L Normal 10-54 [facility] Comment on above: Performed By: #### W SR, CMP, CRP, RF, CCP ####[place] [address] [address] [place] [phone] Albumin 4.5 g/dL Normal 3.9-4.9 [facility] Comment on above: Performed By: #### W SR, CMP, CRP, RF, CCP ####[place] [address] [address] [place] [phone] Alkaline phosphatase (ALP) 52 U/L Normal 36-108 [facility] Comment on above: Performed By: #### W SR, CMP, CRP, RF, CCP ####[place] [address] [place] [phone] Anion gap 11 mmol/L Normal 9-18 [facility] Comment on above: Performed By: #### W SR, CMP, CRP, RF, CCP ####[place] [address] [address] [place] [phone] Aspartate aminotransferase (AST) 27 U/L Normal 14-40 [facility] Comment on above: Performed By: #### W SR, CMP, CRP, RF, CCP ####[place] [address] [address] [place] [phone] Bilirubin (total) 0.4 mg/dL Normal 0.2-1.3 [facility] Comment on above: Performed By: #### W SR, CMP, CRP, RF, CCP ####[place] [address] [address] [phone] Calcium 10.0 mg/dL Normal 8.5-10.2 [facility] Comment on above: Performed By: #### W SR, CMP, CRP, RF, CCP ####[place] [address] [address] [phone] Chloride 103 mmol/L Normal 97-105 [facility] Comment on above: Performed By: #### W SR, CMP, CRP, RF, CCP ####[place] [address] [address] [phone] CO2 28 mmol/L Normal 22-30 [facility] Comment on above: Performed By: #### W SR, CMP, CRP, RF, CCP ####[place] [address] [address] [place] [phone] Creatinine 1.26 mg/dL High 0.73-1.22 [facility] Comment on above: Performed By: #### W SR, CMP, CRP, RF, CCP ####[address] [place] [phone] eGFR (non-black) mL/min/{1.73_m2} Normal [facility] Comment on above: Performed By: #### W SR, CMP, CRP, RF, CCP ####[place] [address] [address] [place] [phone] eGFR (non-black) 57 . Normal [facility] Comment on above: Result Comment: eGFR (Estimated GFR) Units of measure: mL/min/1.73 meters squaredeGFR is derived from the reexpressed MDRD Study equation using the following parameters: serum creatinine, age, gender and race. The creatinine assay has been calibrated to be traceable to IDMS.An eGFR <60 mL/min/1.73m2 for >3 months is consistent with chronic kidney disease. Refer to KDOQI guidelines for clinical interpretation.In patients with unstable renal function, e.g. those with acute kidney injury, the eGFR may not accurately reflect actual GFR. Performed By: #### W SR, CMP, CRP, RF, CCP ####[place] [phone] Glucose mass conc 84 mg/dL Normal 74-99 [facility] Comment on above: Result Comment: The [place] [employer] Association (ADA) provides guidance for cutoff values for fasting glucose and random glucose. The ADA defines fasting as no caloric intake for at least 8 hours. Fasting plasma glucose results between 100 to 125 mg/dL indicate increased risk for diabetes (prediabetes).Fasting plasma glucose results greater than or equal to 126 mg/dL meet the criteria for diagnosis of diabetes. In the absence of unequivocal hyperglycemia, results should be confirmed by repeat testing. In a patient with classic symptoms of hyperglycemia or hyperglycemic crisis, random plasma glucose results greater than or equal to 200 mg/dL meet the criteria for diagnosis of diabetes.Reference: Standards of Medical Care in Diabetes 2016, [place] [employer]. Diabetes Care. 2016.39(Suppl 1). Performed By: #### W SR, CMP, CRP, RF, CCP ####[address] [phone] Potassium molar conc 4.7 mmol/L Normal 3.7-5.1 [facility] Comment on above: Performed By: #### W SR, CMP, CRP, RF, CCP ####[address] [phone] Protein 7.1 g/dL Normal 6.3-8.0 [facility] Comment on above: Performed By: #### W SR, CMP, CRP, RF, CCP ####[address] [phone] Sodium 142 mmol/L Normal 136-144 [facility] Comment on above: Performed By: #### W SR, CMP, CRP, RF, CCP ####[address] [place], [place] [phone] Urea nitrogen 23 mg/dL Normal 9-24 [facility] Comment on above: Performed By: #### W SR, CMP, CRP, RF, CCP ####[address] [place], [place] [phone] PROGRESSon 03-13-2017 PROGRESS HNO ID: [id number] thor: Beverly Meng RtService: (none)Author Type: (none)Type: Progress NotesFiled: 03/13/2017 4:01 PMNote Text: Radiology Service Progress NotePATIENT NAME: EMMA JamesMRN: [id number] OF SERVICE: March 13, 2017TIME: 4:01 PMPATIENT IDENTITY VERIFICATION COMPLETED USING TWO (2) METHODS: Patientconfirmed name verbally and Date of .PATIENT GENDER DATA: MalePATIENT RELEVANT IMPLANT DATA REVIEWED: YesRADIOLOGY DEPARTMENT: General X-ray: Exam(s) Completed: Lower ExtremityX-Ray(s): Knee, AP Only Bilateral and Wt. Bearing:Upper Extremity X-Ray(s): Hand, Bilateral :PERIPHERAL IV DATA: Not applicableSIGNED BY: Beverly Meng RtOct2016 4:01 PM Normal [facility] PROGRESS HNO ID: [id number] thor: Jm Hinojosa: (none)Author Type: PhysicianType: Progress NotesFiled: 03/19/2017 1:41 PMNote Text:[facility] Rheumatologic InstituteDepartment of Rheumatic and Immunologic DiseasesThis consult was requested by the doctor listed below for an opinionregarding the chief complaint listed below, and my final recommendationswill be communicated to the requesting health care provider by way [facility] for internal providers or letter via the [facility] forexternal providers.Consulting Physician: SelfSUBJECTIVE:CC: Joint painHistory of Present Illness:Emma James is a 66 year old male with osteoarthritis (s/pbilateral TKA and R rotator cuff repair), glaucoma, and GERD who presentsfor further evaluation of his joint pain.He was previously evaluated by Dr. Quintanilla in 03/2010 and 03/2012. Hewas primarily treated with NSAIDs and referred for PT for his low backpain. At initial time of presentation, there was concern that he couldhave RA but this was thought less likely based on exam, labs, and x-raysnot showing any deformities.He now returns for evaluation due to progressively more severe painaffecting his bilateral hands, feet, and neck. He'll also occasionallyhave pain in his left shoulder and bilateral knees though these are moreinfrequent. 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 His hand pain inparticular has prevented him from being able to do some of his normalactivities. He is still able to do fine tasks. He does wake up with somemorning stiffness but most of his pain occurs while working and after aday at work. The pain in his hands does primarily affect his MCPs andPIPs, left > right hand. He doesn't notice significant swelling. He doesexperience some numbness and tingling in all of his fingers. This moretypically occurs at rest than with activity.His other main complaint is of neck pain that primarily affects him atnight and prevents him from sleeping. He has tried multiple pillowswithout much effect. It does not radiate down his arms. It mostly stayslocalized to the neck. Not associated with headaches. Worsens with certainpositions and movements. It mostly stays in the midline of his neck.He has been taking Tramadol 50 mg QAM and Ibuprofen 400-800 mg QHS. Bothof these do help with his pain. He also uses a vibrating machine whichhelps about 50%. Also using some topical agents including Voltaren gel. Luisoes report a history of PUD but this was a long time ago. Denies cardiacissues or HTN.Review of Systems:Positive for:EYES: Loss of vision, DrynessEAR, NOSE, MOUTH, THROAT: Swallowing problemsMUSCULOSKELETAL: Joint pain, Morning stiffness in joints, Back painSKIN: Hair lossNEUROLOGIC: Numbness or tinglingALLERGIC/ IMMUNOLOGIC: Allergies (other than medications)Otherwise, a complete 14 point ROS was obtained and was negative exceptfor above.Past Medical History:PAST MEDICAL HISTORYDiagnosis Date- GERD (gastroesophageal reflux disease)- OsteoarthritisPast Surgical History:PAST SURGICAL HISTORYProcedure Laterality Date- KNEE ARTHROSCOPY/SURGERY Bilateral- ROTATOR CUFF REPAIR [id number] History:No family history on file.Social History:Social HistorySubstance Use Topics- Smoking status: Not on file- Smokeless tobacco: Not on file- Alcohol use Not on fileMedications:ibuprofen 800 mg tablet Take 1 tablet by mouth as needed (for pain.).multivitamin (DAILY MULTIPLE) tablet Take 1 tablet by mouth once daily.Glucosamine-Chondroit- Vit C-Mn (GLUCOSAMINE CHONDROITIN MAXSTR) 500-400 mgcap Take 1 capsule by mouth once daily.omeprazole (PRILOSEC) 20 mg ORAL capsule Take one(1) capsule daily.traMADOL (ULTRAM) 50 mg ORAL tablet Take one(1) tablet every four(4) tosix(6) hours as needed for pain.niacin controlled release 750 mg ORAL CR tablet Take one(1) tablet dailyat bedtime.Allergies:ALLERGIESA llergen Reactions- Processed Poultry [* GI UpsetOBJECTIVE:Physical Examination:VITALS: BP 119/80 Pulse 71 Temp 36.4 ?C (97.6 ?F) (Oral) Ht 179.1 cm(5' 10.5 ) Wt 93.3 kg (205 lb 9.6 oz) BMI 29.08 kg/s6SKZCONY: Well appearing, sitting in chair, in NAD.HEENT: NCAT, MMM, EOMI, no scleral icterus, oropharynx clear and withoutlesion, tonsillar exudates, or oral ulcerations.NECK: Normal ROM. No appreciable JVD, cervical LAD, or thyromegaly.CV: Normal rate, regular rhythm with normal S1/S2. No appreciablemurmur/rub/gallop .PULM: Normal WOB and RR on RA. Lung zepeda CTA bilaterally withoutappreciable wheezes or crackles.GI: NABS, soft, nondistended, nontender.EXT: 2+ radial and DP pulses. No edema.SKIN: Warm, dry, no significant rashes, no significant bruising.NEURO: AOx3. Mental status and speech normal. Cranial nerves grosslyintact. 5/5 motor strength. Intact sensation to light touch throughoutincluding in fingertips. Negative Phalen's.PSYCH: Pleasant mood, appropriate affect.MSK: Neck: Flexion, extension, and lateral rotation WNL. Spine: Intact ROM. No TTP over the posterior C-spine. Shoulders: Intact ROM without reported pain. No appreciable swellingor tenderness with palpation. Some crepitus. Elbows: No flexion contractures. No appreciable swelling,deformities, or tenderness with palpation. Wrists: No limitation of flexion or extension. No appreciableswelling or tenderness with palpation. Slight ulnar deviation, thougheasily correctable. Hands: No evidence of synovitis or tenderness with palpation. Lviv7it MCP slightly swollen but only tender with aggressive palpation, somepain reproduced with passive flexion/extension. Able to make full fistsbilaterally. No thenar atrophy. Some scattered Heberden's nodes. Hips: Intact ROM. No tenderness with palpation. Knees: No gross deformity. No appreciable effusion. No tendernesswith palpation of joint lines. Mild crepitus bilaterally. Ankles: No limitation of plantarflexion or dorsiflexion. Noappreciable effusion. No tenderness with palpation. Feet: No evidence of synovitis or tenderness with palpation.Investigations:Mos t recent labs:No results found for: WBC, HGB, HCT, PLT, CHOL, TRIG, ALT, AST, ALKPHOS,NA, K, CO2, CREATININE, BUN, CALCIUM, TSH, PSA, INR, HGBA1C, UALBCR,HEPCABPrevious labs obtained: NonePrevious imaging obtained:XR T/L-spine ? 03/28/12Normal alignment in the thoracic and lumbar spine. No fractureidentified, no radiographic signs of spondylitis. Mild to moderatedegenerative disease at multiple levels in the lumbar spine.XR Bilateral Hand ? 03/28/12Benign sclerosis in the proximal phalanx of the ring finger on the righthand. Degenerative type small cysts and some of the metacarpal heads, nomarginal erosions identified. Joint spaces are maintained. Nochondrocalcinosis.XR Bilateral Foot ? 04/13/10Mild flexion deformities of the third and fourth digits are presentbilaterally. The bone mineralization is normal. No fractures ordislocations are present. The joint spaces are preserved. No soft tissueswelling or soft tissue masses are seen. No abnormal calcifications arepresent.ASSESSMENT AND PLAN:Emma James is a 66 year old male with osteoarthritis (s/pbilateral TKA and R rotator cuff repair) and GERD who presents for furtherevaluation of his pain.Polyarthritis - Affecting primarily hands, shoulders, knees, feet. Likelyrelated to osteoarthritis but some aspects do sound inflammatory (MCP/PIPinvolvement, pain both with rest and after activity, good response toNSAIDs). Less likely CPPD or RA.? Ordered for bilateral hand x-rays to assess for any new inflammatorychanges compared to prior? Ordered for bilateral knee x-rays to assess for any changes c/w CPPD? Checking CMP, ESR, CRP, RF, anti-CCP for evaluation of renal function(NSAIDs) and to help rule out other causes of inflammatory arthritis? Recommended addition of Tylenol (up to 3g daily in divided doses)? Prescribed Cymbalta 30 mg QHS? Counseled on side effects of NSAIDs and when to potentially discontinueuse? Prescribed Celebrex 100 mg BID PRN in place of Ibuprofen for gentlereffect on stomach due to h/o PUDChronic neck pain - No radicular symptoms. Seems c/w degenerativearthritis as well.? Work-up as above? Pain control as above? If worsening, could consider x-ray C-spineGERD and h/o PUD -? On Prilosec 20 mg QDImpression and recommendations/plan were discussed with the patient inperson. Patient will be updated with results of above lab work or studiesas ordered. Documentation of this visit will be sent to appropriateproviders involved with patient?s care.Discussed with rheumatology staff, Dr. Dasilva.Dontae Russell, MDRheumatology Fellow, [phone] 1:51 PM++++++++++++++++++++++++++ ++++++++++++++++++++++++++++ +++++++++++++RHEUMATOLOGY STAFF PHYSICIAN NOTEPatient seen and evaluated with Dr Russell on March 13, 2017I have reviewed the note documented by Dr Russell and I personallyparticipated in the haro components. I have discussed the case andmanagement of the patient's care.Agree with above findings, assessment and plan of care .66 yo RH male w chronic pain in neck, hands > feet, indicates mcps/pips.Reports difficulty making fists in am, cannot skin a pig , no paresis orparesthesiae. Good relief from tramadol in am + ibuprofen 400-800mg inpm. reports that he has severe pain at end of day. Pt concurs pain isworse in evening. Denies erythema, warmth or swelling of UE or LE joints.On exam: stoic; L 3MCP S0T1L1 ; some arsen's nodes; wrists S0T0L1 milddecrease ext/ flex britni; intact sensation to PP/cold in UE includingMedian nerve distribution, intact APB/OPB britni; negative flexortenosynovitis (trigger finger); xrays show mild osteoarthritis of pips, nochondrocalcinosis. Most likely osteoarthritis though cannot rule out somemild inflammatory component. Although no findings of carpal tunnelsyndrome on exam, cannot rule out some component of neuropathic pain givenpatient's description. Ddx cppd, early RA, atypical osteoarthritis .Willobtain xrays rule out erosions/chondrocalcinosis; try celebrex bid prnrather than ibuprofen ( risks and benefits of nsaids discussed withpatient ; hx remote pud >40 yrs ago). Agree with trial of duloxetine.Jm Dasilva MD, MSc, FRCPC Normal [facility] Rheumatoid Factoron 03-13-20 17 Rheumatoid Factor <10 Normal <16 [facility] Comment on above: Performed By: #### W SR, CMP, CRP, RF, CCP ####[facility] [place], [place] [phone] Sed Rate Westergrenon 2016 Sed Rate Westergren Unable to assay. Casimiro ntity not sufficient. Normal 0-15 [facility] Comment on above: Result Comment: Acco unt CreditedCalled [facility] RPO 0859 03.14.2017 AL Performed By: #### W SR, CMP, CRP, RF, CCP ####[facility] [place], [place] [phone] XR HAND 3V PA/LAT/OBL LTon 1 XR HAND 3V PA/LAT/OBL LT * * *Final Report* * *DATE OF EXAM: Mar 13 2017 4:00PM AOX [id number] - XR HAND 3V PA/LAT/OBL LT / REASON: Unspecified osteoarthritis, unspecified site * * * * Physician Interpretation * * * * EXAMINATION: XR HAND 3V PA/LAT/OBL LT, XR HAND 3V PA/LAT/OBL RTHISTORY: OSTEOARTHRITIS Unspecified osteoarthritis, unspecified site .TECHNIQUE: XR HAND 3V PA/LAT/OBL LT, XR HAND 3V PA/LAT/OBL RT Laterality: BILATERAL Number of different views (projections): 3 EACH M: XB_1COMPARISON: NoneRESULT:The osseous structures are intact. There are no marginal erosions. Joint spaces are maintained. No soft tissue calcifications. Cystlike changes in the third metacarpal heads bilaterally more pronounced on the right.No other significant abnormality.IMPRESSION:No acute findings.Manager Quality Compliance: [facility] Transcribe Date/Time: Mar 13 2017 4:35PDictated by : Garrett CASANOVA examination was interpreted and the report reviewed and electronically signed by: SHAY MATTHEWS MD on Mar 13 2017 4:37PM [id number] Normal [facility] XR HAND 3V PA/LAT/OBL RTon 1 XR HAND 3V PA/LAT/OBL RT * * *Final Report* * *DATE OF EXAM: Mar 13 2017 4:00PM AOX [id number] - XR HAND 3V PA/LAT/OBL RT / REASON: Unspecified osteoarthritis, unspecified site * * * * Physician Interpretation * * * * EXAMINATION: XR HAND 3V PA/LAT/OBL LT, XR HAND 3V PA/LAT/OBL RTHISTORY: OSTEOARTHRITIS Unspecified osteoarthritis, unspecified site .TECHNIQUE: XR HAND 3V PA/LAT/OBL LT, XR HAND 3V PA/LAT/OBL RT Laterality: BILATERAL Number of different views (projections): 3 EACH M: XB_1COMPARISON: NoneRESULT:The osseous structures are intact. There are no marginal erosions. Joint spaces are maintained. No soft tissue calcifications. Cystlike changes in the third metacarpal heads bilaterally more pronounced on the right.No other significant abnormality.IMPRESSION:No acute findings.Manager Quality Compliance: [facility] Transcribe Date/Time: Mar 13 2017 4:35PDictated by : Garrett CASANOVA examination was interpreted and the report reviewed and electronically signed by: SHAY MATTHEWS MD on Mar 13 2017 4:37PM [id number] Normal [facility] XR KNEE SURVEY 1V AP BILon 1 XR KNEE SURVEY 1V AP BRITNI * * *Final Report* * *DATE OF EXAM: Mar 13 2017 4:00PM AOX [id number] - XR KNEE SURVEY 1V AP BRITNI / REASON: Unspecified osteoarthritis, unspecified site * * * * Physician Interpretation * * * * EXAMINATION: XR KNEE SURVEY 1V AP BILHISTORY: OSTEOARTHRITIS Unspecified osteoarthritis, unspecified site .TECHNIQUE: XR KNEE SURVEY 1V AP BRITNI Laterality: BILATERAL Number of different views (projections): 1 EACH M: XB_1COMPARISON: NoneRESULT:Mild narrowing of the medial joint compartments bilaterally with small osteophytes. Osseous structures are intact.No other significant abnormality.IMPRESSION:Mild bilateral osteoarthritis.Grill Chef ist: P[facility] Transcribe Date/Time: Mar 13 2017 4:36PDictated by : SHAY MATTHEWS MDThis examination was interpreted and the report reviewed and electronically signed by: SHAY MATTHEWS MD on Mar 13 2017 4:36PM [id number] Normal [facility] Vital Signs Date Time Vital Sign Value Performing Clinician Marian galvez 09-02-2024 09:22-0400 Body height 179.1 cm Dennis Irizarry [employer] Phone: [facility] [employer] 09-02-2024 09:22-0400 Body mass index (BMI) [Ratio] 28.66 kg/m2 Dennis GarciaLuxola Work Phone: [facility] 09-02-2024 09:22-0400 Body weight 91.9 kg Dennis Irizarry [employer] Work Phone: [facility] 09-02-2024 09:22-0400 Diastolic blood pressure 70 mm[Hg] Dennis Irizarry [employer] Work Phone: [facility] [employer] 09-02-2024 09:22-0400 Heart rate 70 /min Dennis Irizarry [employer] Work Phone: [facility] 09-02-2024 09:22-0400 SaO2% (BldA) [Mass fraction] 93 % Dennis GarciaLuxola Work Phone: [facility] 09-02-2024 09:22-0400 Systolic blood pressure 110 mm[Hg] Dennis Garciak DO Work Phone: [facility] 07-15-2024 14:18-0500 Diastolic blood pressure 80 mm[Hg] Brooke Delgado [employer] Work Phone: [facility] 07-15-2024 14:18-0500 Heart rate 105 /min Brooke Delgado [employer] Work Phone: [facility] 07-15-2024 14:18-0500 SaO2% (BldA) [Mass fraction] 93 % Brooke Delgado [employer] Work Phone: [facility] 07-15-2024 14:18-0500 Systolic blood pressure 140 mm[Hg] Brooke Delgado [employer] TE[employer] Work Phone: [facility] 03-22-2024 08:57-0400 Body height 179.1 cm Dennis Irizarry DO Work Phone: [facility] 03-22-2024 08:57-0400 Body mass index (BMI) [Ratio] 29.85 kg/m2 Dennis Garciak DO Work Phone: [facility] 03-22-2024 08:57-0400 Body weight 95.71 kg Dennis Garciak DO Work Phone: [facility] 03-22-2024 08:57-0400 Diastolic blood pressure 60 mm[Hg] Dennis Garciak DO Work Phone: [facility] 03-22-2024 08:57-0400 Heart rate 73 /min Dennis Garciak DO Work Phone: [facility] 03-22-2024 08:57-0400 SaO2% (BldA) [Mass fraction] 96 % Dennis Garciak DO Work Phone: [facility] 03-22-2024 08:57-0400 Systolic blood pressure 140 mm[Hg] Dennis Garciak DO Work Phone: [facility] Healthcare Encounters Encounter Date Encounter Type Care Provider Facility Start: 11-25-2024 End: 11-25-2024 Clinisync Result Encounter Generic External Data Provider [facility] External Department Unsolicited Start: 11-25-2024 End: 11-25-2024 Clinisync Result Encounter Generic External Data Provider [facility] External Department Unsolicited Start: 11-21-2024 End: 11-21-2024 ambulatory EHAB [facility] Start: 11-14-2024 End: 11-14-2024 Clinisync Result Encounter Generic External Data Provider [facility] External Department Unsolicited Start: 11-14-2024 End: 11-14-2024 Clinisync Result Encounter Generic External Data Provider [facility] External Department Unsolicited Start: 10-16-2024 End: 10-16-2024 Clinisync Result Encounter Generic External Data Provider [facility] External Department Unsolicited Start: 10-16-2024 End: 10-16-2024 Clinisync Result Encounter Generic External Data Provider [facility] External Department Unsolicited Start: 09-20-2024 End: 09-23-2024 Clinisync Result Encounter Generic External Data Provider [facility] External Department Unsolicited Start: 09-20-2024 End: 09-23-2024 Clinisync Result Encounter Generic External Data Provider [facility] External Department Unsolicited Start: 09-18-2024 End: 09-23-2024 Clinisync Result Encounter Generic External Data Provider [facility] External Department Unsolicited Start: 09-18-2024 End: 09-23-2024 Clinisync Result Encounter Generic External Data Provider [facility] External Department Unsolicited Start: 09-11-2024 End: 09-11-2024 Clinisync Result Encounter Generic External Data Provider [facility] External Department Unsolicited Start: 09-11-2024 End: 09-11-2024 Clinisync Result Encounter Generic External Data Provider [facility] External Department Unsolicited Start: 09-11-2024 ambulatory ARMIDA BRENDA [facility] [place] Start: 09-10-2024 ambulatory JETHRO [facility] Start: 09-05-2024 ambulatory REAL HOWARD [facility] Start: 09-02-2024 End: 09-02-2024 Transitional care manage srvc 14 day discharge Dennis Irizarry DO Work Phone: [facility] Comment on above: Atrial fibrillation, unspecified type (HCC) (Primary Dx); Bilateral leg edema; S/P Maze operation for atrial fibrillation; Status post ligation of left atrial appendage; S/P CABG x 3; Acute diastolic heart failure secondary to coronary artery disease (HCC); Blood loss anemia; Elevated liver enzymes; Mixed hyperlipidemia Start: 09-02-2024 End: 09-02-2024 ambulatory DENNIS IRIZARRY Not Available Start: 08-29-2024 End: 08-29-2024 ambulatory [facility] Start: 08-29-2024 End: 08-29-2024 ambulatory [facility] Start: 08-21-2024 Evaluation and manag ement of inpatient [facility] Start: 08-21-2024 Evaluation and manag ement of inpatient [facility] Start: 08-20-2024 Evaluation and manag ement of inpatient [facility] Start: 08-19-2024 Evaluation and manag ement of inpatient [facility] Start: 08-19-2024 Evaluation and manag ement of inpatient LLUVIA DRISCOLL [facility] Start: 08-19-2024 Evaluation and manag ement of inpatient [facility] Start: 08-18-2024 Evaluation and manag ement of inpatient [facility] Start: 08-18-2024 Evaluation and manag ement of inpatient REAL HOWARD [facility] Start: 08-17-2024 Evaluation and manag ement of inpatient [facility] Start: 08-17-2024 Evaluation and manag ement of inpatient [facility] Start: 08-16-2024 Evaluation and manag ement of inpatient [facility] Start: 08-16-2024 Evaluation and manag ement of inpatient [facility] Start: 08-15-2024 Evaluation and manag ement of inpatient REAL J [facility] Start: 08-14-2024 End: 08-14-2024 Evaluation and management of inpatient KEITH [facility] Start: 08-14-2024 Evaluation and manag ement of inpatient REAL J [facility] Start: 08-14-2024 Evaluation and manag ement of inpatient [facility] Start: 08-14-2024 ambulatory [facility] Start: 08-14-2024 End: 08-21-2024 Evaluation and management of inpatient KEITH [facility] Start: 07-30-2024 End: 07-30-2024 [facility] Start: 07-22-2024 End: 07-22-2024 Clinisync Result Encounter Dennis Irizarry DO Work Phone: [facility] External [facility] Unsolicited Start: 07-22-2024 End: 07-22-2024 Clinisync Result Encounter Dennis Frances Bryankerrie DO Work Phone: [facility] External Department Unsolicited Start: 07-15-2024 End: 07-15-2024 Office outpatient visit 25 minutes Brooke Delgado CASH TELL[employer] Work Phone: [facility] Comment on above: Shortness of breath (Primary Dx); Bilateral leg edema Start: 07-15-2024 End: 07-15-2024 ambulatory BROOKE DELGADO Not Available Start: 05-10-2024 End: 05-10-2024 Bamrona Rod Stepbruno DO Work Phone: [facility] Start: 05-10-2024 End: 05-10-2024 Bamrona Rod Stepbruno DO Work Phone: [facility] Start: 05-10-2024 End: 05-10-2024 ambulatory ARMIDA SPRAGUE Not Available Start: 05-10-2024 End: 05-10-2024 Office outpatient visit 15 minutes Jr. Armida Ramirez DO [facility] Comment on above: Right knee pain, uns pecified chronicity (Primary Dx); Primary osteoarthritis of right knee Start: 04-29-2024 End: 04-29-2024 ambulatory PAM Dias APLING Not Available Start: 04-24-2024 End: 04-24-2024 Bamboo flowsheet Pam Dias Aplsharan CASH TELLER Work Phone: [facility] Start: 04-24-2024 End: 04-24-2024 Bamboo flowsheet Pam Dias Aplsharan CASH TELLER Work Phone: [facility] Start: 04-24-2024 End: 04-24-2024 Office outpatient visit 15 minutes Pam Jackson CASH TELLER Work Phone: [facility] Comment on above: Right knee pain, uns pecified chronicity (Primary Dx); Primary osteoarthritis of right knee; Internal derangement of knee, right Start: 04-24-2024 End: 04-24-2024 ambulatory PAM Dias APLING Not Available Start: 04-17-2024 End: 04-17-2024 Telephone encounter Ashley Teodoro CASH TELLER Work Phone: [facility] Start: 04-09-2024 End: 04-09-2024 Bamboo flowsheet Celso Montano CASH TELLER Work Phone: [facility] Start: 04-09-2024 End: 04-09-2024 Bamboo flowsheet Celso Montano CASH TELLER Work Phone: [facility] Start: 04-09-2024 End: 04-09-2024 ambulatory CELSO MONTANO Not Available Start: 04-09-2024 End: 04-09-2024 Office outpatient new 45 minutes Celso Montano CASH TELLER Work Phone: [facility] Comment on above: Primary osteoarthrit is of right knee (Primary Dx); Right knee pain, unspecified chronicity Start: 03-22-2024 End: 03-22-2024 Office outpatient visit 25 minutes Dennis Irizarry DO Work Phone: [facility] [place] Comment on above: Benign fasciculation -cramp syndrome (Primary Dx); Obesity, unspecified class, unspecified obesity type, unspecified whether serious comorbidity present; Hypercholesteremia (CMS/HCC); Screening PSA (prostate specific antigen) Start: 03-22-2024 End: 03-22-2024 ambulatory DENNIS IRIZARRY Not Available Start: 09-15-2023 End: 09-15-2023 ambulatory MARIELLE PALMER Not Available Start: 01-12-2018 End: 01-13-2018 Patient encounter SONY LLOYD Facility:H1 Start: 01-08-2018 Encounter for preprocedural cardiovascular examination [facility] Start: 01-05-2018 End: 01-06-2018 Patient encounter SONY LLOYD Facility:H1 Start: 07-17-2017 Ambulatory DENNIS IRIZARRY Facility :[id number] Start: 07-17-2017 Ambulatory Facility:[id number] Start: 03-13-2017 End: 03-13-2017 Ambulatory JM DASILVA [facility] Start: 03-13-2017 End: 03-13-2017 Ambulatory DONTAE RUSSELL (FEL) [facility] Encounter for preprocedural cardiovascular examination [facility] Procedures Date Procedure Procedure Detail Performing Clinician Start: 11-25-2024 ALL CBC WITH AUTO DIFF Generic External Data Provider Start: 11-21-2024 Follow-up visit REAL HOWARD Start: 11-14-2024 ITP Generic Ex ternal Data Provider Start: 11-02-2024 History of coronary artery bypass grafting S/P CABG x 3 Dennis Irizarry DO Work Phone: Start: 10-16-2024 ITP Generic Ex ternal Data Provider Start: 09-20-2024 ITP Generic Ex ternal Data Provider Start: 09-18-2024 ITP Generic Ex ternal Data Provider Start: 09-11-2024 ALL CBC WITH AUTO DIFF Generic External Data Provider Start: 09-11-2024 Follow-up visit REAL HOWARD Start: 09-10-2024 Follow-up visit REAL HOWARD Start: 09-02-2024 Basic metabolic pane l calcium total Dennis Irizarry DO Work Phone: Start: 08-29-2024 Follow-up visit REAL HOWARD Start: 07-30-2024 Follow-up visit REAL HOWARD Start: 07-22-2024 CA ECHO DOPPLER COMPLETE Dennis Irizarry DO Work Phone: Start: 04-09-2024 Arthrocentesis aspir &/inj major jt/bursa w/o us Celso Montano CASH TELLER Work Phone: Start: 04-09-2024 Radiologic examinati on knee 1/ views Celso Montano CASH TELLER Work Phone: Start: 03-22-2024 Comprehensive metabo lic panel Dennis Irizarry DO Work Phone: Start: 03-22-2024 Lipid panel Dennis mosley DO Work Phone: History of coronary artery bypass grafting S/P CABG x 3 Dennis Irizarry DO Work Phone: Plan of Treatment Date Care Activity Detail Author Start: 09-27-2026 Screening for malign ant neoplasm of colon [facility] Start: 03-28-2025 End: 03-28-2025 Patient encounter procedure 03/28/2025 9:00 AM EST Office Visit [facility] [place] [address] [place] [address] Dennis Irizarry, DO [address] [place] [address] [facility] Start: 01-20-2025 Influenza vaccination [facility] Start: 11-18-2024 Influenza vaccination Influenz a Vaccine (#1) [facility] Comment on above: Postponed from 01/20 (Patient Refused) Start: 09-14-2024 Medicare Annual Well ness (AWV) Medicare Annual Wellness (AWV) [facility] Start: 07-15-2024 End: 07-15-2025 ECG 12 lead ECG 12 lead ECG Routine Shortness of breath Expected: 07/15/2024 (Approximate), Expires: 07/15/2025 [facility] Work Phone: Comment on above: Expected: 07/15/2024 (Approximate), Expires: 07/15/2025 Start: 04-29-2024 End: 04-29-2024 Professional / ancillary services management 04/29/2024 8:30 AM EST Ancillary Procedure [facility] [address] [place] [address] [facility] Start: 04-24-2024 End: 04-24-2025 MR Knee - right WO contrast MR knee right wo IV contrast Imaging Routine Internal derangement of knee, right Expected: 04/24/2024 (Approximate), Expires: 04/24/2025 [facility] Work Phone: Comment on above: Expected: 04/24/2024 (Approximate), Expires: 04/24/2025 Start: 04-24-2024 End: 04-24-2024 Patient encounter procedure [facility] Comment on above: Right knee pain, uns pecified chronicity (Primary Dx); Primary osteoarthritis of right knee Start: 09-03-2023 Medicare Annual Well ness (AWV) Medicare Annual Wellness (AWV) [facility] Start: 1950 Screening for malign ant neoplasm of colon [facility] Immunizations Immunization Date Immunization Notes Care Provider [facility] 03-30-2020 zoster vaccine azalia Montano CASH TELLER Work Phone: [facility] 03-26-2019 pneumococcal polysaccharide vaccine, 23 valent Celso Montano CASH TELLER Work Phone: [facility] 04-19-2018 pneumococcal conjuga te vaccine, 13 valent Celso Montano CASH TELLER Work Phone: [facility] 07-14-2010 hepatitis A and hepa titis B vaccine Celso Montano CASH TELLER Work Phone: [facility] 07-14-2010 zoster vaccine, live Celso snowden CASH TELLER Work Phone: [facility] 05-11-2010 hepatitis A and hepa titis B vaccine Celso Montano CASH TELLER Work Phone: [facility] 08-28-2009 hepatitis A and hepa titis B vaccine Celso Montano NP Work Phone: [facility] 02-23-2009 tetanus toxoid, redu leia diphtheria toxoid, and acellular pertussis vaccine, adsorbed Celso Montano NP Work Phone: [facility] Payers Date Payer Category Payer Private Health Insurance [id number] 2023 Unknown [id number] 2017 Medicare MEDICARE [id number] 1959 Medicare [id number] 1959 Medicare [id number] 1950 Unknown [id number] 1949 Unknown [id number] 1949 Unknown [id number] [id number] 1949 Unknown [id number] [id number] 1949 Unknown [id number] 2.9 1949 Unknown [id number] 2.9 1949 Unknown [id number] [id number] 1949 Unknown [id number] 2.9 1949 Unknown [id number] 2.9 1950 Unknown [id number] 2.9 Unknown [id number] Social History Date Type Detail Facility Start: 09-15-2023 End: 09-02-2024 Tobacco smoking status [facility] Occasional tobacco smoker [facility] History of tobacco use Cigarette Smoker [facility] History of tobacco use Cigar Smoker [facility] Start: 09-15-2023 End: 09-02-2024 Tobacco use and exposure Smokeless tobacco non-user [facility] Start: 03-22-2024 End: 09-02-2024 Alcoholic beverage intake Current drinker of alcohol (finding) [facility] Start: 09-15-2023 End: 09-02-2024 [facility] Start: 09-15-2023 End: 09-02-2024 Alcohol Use Disorder Identification Test - Consumption [AUDIT-C] [facility] How often to you hav e a drink containing alcohol? 2-4 times a month [facility] How many standard dr inks containing alcohol do you have on a typical day? 1 or 2 [facility] How often do you hav e 6 or more drinks on 1 occasion? Never [facility] Start: 1950 Sex assigned at Not on file [facility] Start: 09-02-2024 Alcohol Comment Occasional [facility] Clinical Notes 03-22-2024 to 11-21-2024 Dennis Irizarry, DO - 09/02/2024 9:30 AM Trey Delgado, YUNG - 07/15/2024 2:00 PM ESTJrMaday Ramirez, DO - 05/10/2024 8:15 AM Yaniv Jackson, CASH TELLER - 04/24/2024 8:15 AM EST Note Date & Type Note Facility 11-21-2024 Note [facility] 09-11-2024 Note [facility] 09-10-2024 Note [facility] 09-05-2024 Note [facility] 09-02-2024 History of Present illness Narrative Images from the original note were not included. Emma James is a 73 y.o. male presents with chief complaint of Review ECHO Results, Hospital Follow-up, and Declines Prevnar 20 vax HPI: HPI He was experiencing episodes of exertional dyspnea without anginal symptoms. TTE on 07/22/2024 showed a newly reduced LVEF of 45-50% EKG showed atrial fibrillation for which he was started on amiodarone and Xarelto. GXT-CL on 08/06/2024 showed an inferior fixed defect with mildly reversible apical defect. LHC/RHC on 08/14/2024 showed multivessel CAD with left main disease. CABG X3, on 08/16/2024 with LOPEZ TO LAD, SVG TO 2ND OM, SVG TO DISTAL RIGHT CORONARY ARTERY WITH ENDOSCOPIC PROCUREMENT OF SAPHENOUS VEIN GRAFT (Left: Leg Lower), LEFT ATRIAL APPENDAGE AMPUTATION WITH MODIFIED MAZE, RADIOFREQUENCY ABLATION (Left: Chest) History of Present Illness Flowsheet Row Patient Outreach from 08/22/2024 in [facility] with Cris Owens LPN Hospital Information ED, Hospital or Snf Facility Discharge? Hospital Patient has been contacted within two business days of discharge Yes Diagnosis Dyspnea, abnormal stress test, multi-vessel coronary artery stenosis, S/P CABG, coronary arteriosclerosis, pain Discharge Date 08/21/24 Discharged To: Home Setting Discharge Hospital [facility] Engagement Call Start Time 1520 Admission Date 08/14/24 Medications Discharge medications reviewed and reconciled from hospital? Yes [START: Lasix] Is the patient having any side effects they believe may be caused by any medication additions or changes? No Does the patient have all medications ordered at discharge? Yes Nursing Interventions No intervention needed Is the patient taking all medications as directed (includes completed medication regime)? Yes Nursing Interventions Nurse provided patient education Appointments Does the patient have a primary care provider? Yes [Appt with Dr Irizarry on 09/02] Nursing Interventions Verified appointment date/time/provider Does the patient have any upcoming specialty appointments? Yes [Cardiothoracic Surgeon 08/29, Cardiology 09/10] Nursing Interventions Advised patient to keep appointment Self Management Patient Teaching Does the patient have access to their discharge instructions? Yes Nursing Interventions Reviewed instructions with patient What is the patient's perception of their health status since discharge? Improving Is the patient/caregiver able to teach back the hierarchy of who to call/visit for symptoms/problems? PCP, Specialist, Home Health nurse, Urgent Care, ED, 911 Yes Wrap Up Wrap Up Additional Comments SURGERY: CABG x3 Call End Time 1530 HISTORIES: PAST MEDICAL HISTORY: History reviewed. No pertinent past medical history. SURGICAL HISTORY: Past Surgical History: Procedure Laterality Date APPENDECTOMY CORONARY ARTERY BYPASS GRAFT 07/2024 HERNIA REPAIR KNEE ARTHROSCOPY W/ LATERAL RETINACULAR REPAIR OTHER SURGICAL HISTORY Bilateral knees RHINOPLASTY ROTATOR CUFF REPAIR VASECTOMY 1977 SOCIAL HISTORY: Social History Tobacco Use Smoking status: Some Days Types: Cigars Smokeless tobacco: Never Substance Use Topics Alcohol use: Yes Alcohol/week: 3.0 standard drinks of alcohol Types: 3 Cans of beer per week Comment: Occasional Drug use: Never Depression: Not at risk (08/29/2024) Received from [facility] PHQ-2 Patient Health Questionnaire-2 Score: 0 FAMILY HISTORY: Family History Problem Relation Name Age of Onset Heart failure Mother Ada Hypertension Mother Ada Diabetes Sister Beverly, Nadia Diabetes Brother Casey Heart disease Maternal Grandmother [place] Cancer Paternal Grandmother Elizabeth Diabetes Paternal Grandmother Elizabeth Heart disease Paternal Grandfather WG MEDICATIONS: Current Outpatient Medications Medication Instructions acetaminophen (TYLENOL) 500 mg, Every 6 hours PRN amiodarone (PACERONE) 200 mg, Daily aspirin 81 mg, Daily RT atorvastatin (LIPITOR) 10 mg, Oral, Daily clopidogrel (PLAVIX) 75 mg, Daily RT DSS 200 mg, 2 times daily PRN furosemide (LASIX) 40 mg, Daily RT guaiFENesin (MUCINEX) 600 mg, 2 times daily Ibuprofen (ADVIL PO) Take by mouth PRN latanoprost (Xalatan) 0.005 % ophthalmic solution Magnesium 500 MG capsule Every 24 hours methocarbamol (ROBAXIN) 500 mg, 3 times daily PRN omeprazole (PRILOSEC) 20 mg, Oral, Daily before breakfast timolol (Timoptic) 0.5 % ophthalmic solution ALLERGIES: No Known Allergies PHYSICAL EXAM: Visit Vitals BP 110/70 Pulse 70 Ht 5' 10.5 Wt 202 lb 9.6 oz SpO2 93% BMI 28.66 kg/m Smoking Status Some Days BSA 2.14 m BP Readings from Last 3 Encounters: 09/02/24 110/70 07/15/24 140/80 03/22/24 140/60 Wt Readings from Last 3 Encounters: 09/02/24 202 lb 9.6 oz 03/22/24 211 lb 09/15/23 210 lb Physical Exam Physical Exam Appears well Sclera clear , conjunctiva pink No JVD LCTA HRRR no rub/gallop /murmur Ext left > eight lower extremity with 1+ edema Neurologic normal Results 08/14/2024 [facility] Severe, three-vessel coronary artery disease including the left main coronary artery Mildly reduced global left ventricular systolic function by noninvasive imaging Mildly elevated right-sided filling pressures Significantly reduced cardiac output/cardiac index 03/2024 Cholesterol, Total 202 High Triglycerides 256 High HDL Cholesterol 42 VLDL Cholesterol Jordan 45 High LDL Chol Calc (NIH) 115 High Resulting Agency [facility] Triglycerides <150 mg/dL 76 Comment: TRIGLYCERIDE REFERENCE RANGE: 20 YEARS AND OLDER CARDIOVASCULAR RISK LESS THAN 150 mg/dL LOW RISK 150 TO 199 mg/dL BORDERLINE RISK 200 mg/dL AND GREATER HIGH RISK 07/2024 Cholesterol 120 - 200 mg/dL 157 LDL Calculated 0 - 160 mg/dL 99 HDL 23 - 92 mg/dL 43 ASSESSMENT AND PLAN: Assessment & Plan Diagnosis Plan 1. Atrial fibrillation, unspecified type (HCC) had new onset , prior to cath 2. Bilateral leg edema Basic metabolic panel Basic metabolic panel L>R d/t venous insufficiency and saphenous vein harvest 3. S/P Maze operation for atrial fibrillation [facility] 4. Status post ligation of left atrial appendage [facility] 5. S/P CABG x 3 [facility] LOPEZ TO LAD, SVG TO 2ND OM, SVG TO DISTAL RIGHT CORONARY ARTERY WITH ENDOSCOPIC PROCUREMENT OF SAPHENOUS VEIN GRAFT (Left: Leg Lower), 6. Acute diastolic heart failure secondary to coronary artery disease (HCC) EF 45-50% 7. Blood loss anemia baseline Hb prior to CABG 15 most recent 10 ( improved from 8 post op) no bleeding 8. Elevated liver enzymes new after CABG ALT 57 AP 158 Tbili 0.8 9. Mixed hyperlipidemia low intensity statin documented in this encounter [facility] 08-29-2024 Note [facility] 08-21-2024 Note Sent final AVS to [address] [facility] 08-21-2024 Note [facility] 08-21-2024 Note [facility] 08-21-2024 Note [facility] 08-21-2024 Note [facility] 08-21-2024 Note [facility] 08-20-2024 Note [facility] 08-20-2024 Note [facility] 08-20-2024 Note [facility] 08-20-2024 Note [facility] 08-20-2024 Note [facility] 08-20-2024 Note [facility] 08-19-2024 Note [facility] 08-19-2024 Note [facility] 08-19-2024 Note [facility] 08-19-2024 Note [facility] 08-19-2024 Note [facility] 08-19-2024 Note [facility] 08-19-2024 Note [facility] 08-19-2024 Note [facility] 08-18-2024 Note [facility] 08-18-2024 Note [facility] 08-18-2024 Note [facility] 08-17-2024 Note [facility] 08-17-2024 Note [facility] 08-17-2024 Note [facility] 08-16-2024 Note Consult rec'd for s/ p CABG. Patient had surgery today. Patient is not appropriate for assessment today. SW to follow. [facility] 08-16-2024 Note Patient treatments a re sufficient at this time, no need for change. [facility] 08-16-2024 Note [facility] 08-16-2024 Note Peripheral IV Date/Time: 08/16/2024 8:10 AM Inserted by: Federico Ramon MD Placement Needle size: 14 G Laterality: right Location: wrist Local anesthetic: none Site prep: alcohol Technique: anatomical landmarks Attempts: 1 [facility] 08-16-2024 Note [facility] 08-16-2024 Note [facility] 08-16-2024 Note [facility] 08-16-2024 Note [facility] 08-16-2024 Note [facility] 08-15-2024 Note [facility] 08-15-2024 Note Bedside spirometry c ompleted and in remediation bioanalytics consultant. [facility] 08-15-2024 Note [facility] 08-15-2024 Note [facility] 08-14-2024 Note [facility] 08-14-2024 Note Admit to step down Ambulate as tolerated Regular cardiac diet Daily bmp and cbc to monitor kidney function, electrolytes, hgb and wbc Case will be seen and discussed with attending physician [facility] 08-14-[address] surgery consulted by cardiology, will evaluate patient Will start heparin gtt 4 hours after wrist band removed post cath [facility] 08-14-2024 Note Will start heparin g tt 4 hours after wrist band removed post cath [facility] 08-14-2024 Note Continuous pulse ox [facility] 08-14-2024 Note Patient underwent he art cath and found to have multi-vessel heart disease Cardiology consulted [facility] 08-14-2024 Note Continue Protonix in place of omeprazole [facility] 07-30-2024 Note [facility] 07-15-2024 History of Present illness Narrative Images from the original note were not included. Subjective Patient ID: Emma James (: 1950) is a 73 y.o. male who presents for Shortness of Breath (With exertion. Started on June.). HPI History of Present Illness The patient presents for evaluation of shortness of breath. He has been experiencing daily episodes of dyspnea since 06/22/2024, which are exacerbated by physical exertion. He reports no associated chest pain or similar previous episodes. His work pace has slowed due to the need to manage his symptoms. He reports no recent illness, fever, or influenza-like symptoms. Additionally, he notes swelling in his ankles upon removing his socks, but this resolves by morning. He has no personal history of congestive heart failure or cardiac issues, although there is a significant family history of congestive heart failure on his maternal side. FAMILY HISTORY His maternal family has a history of congestive heart failure, with four out of five siblings dying before the age of 75. Current Outpatient Medications Medication Instructions atorvastatin (LIPITOR) 10 mg, Oral, Daily Ibuprofen (ADVIL PO) Take by mouth PRN latanoprost (Xalatan) 0.005 % ophthalmic solution PLACE 1 DROP IN BOTH EYES AT BEDTIME Magnesium 500 MG capsule Every 24 hours omeprazole (PRILOSEC) 20 mg, Oral, Daily before breakfast timolol (Timoptic) 0.5 % ophthalmic solution INSTILL 1 DROP TO BOTH EYES EACH MORNING. No Known Allergies Patient Active Problem List Diagnosis Agatston coronary artery calcium score less than 100 Osteoarthritis Cervical spondylosis without myelopathy Chronic neck pain Chronic pain disorder Gastroesophageal reflux disease without esophagitis Hypercholesteremia (CMS/HCC) Obesity Review of Systems Constitutional: Negative for chills, fatigue and fever. Respiratory: Positive for shortness of breath. Negative for cough and wheezing. Cardiovascular: Positive for leg swelling. Negative for chest pain and palpitations. Gastrointestinal: Negative for diarrhea, nausea and vomiting. Neurological: Negative for dizziness, light-headedness and headaches. Objective Vital signs: BP 140/80 Pulse 105 SpO2 93% SPO2 94% while waking the lucero in the office. Physical Exam Constitutional: Appearance: Normal appearance. HENT: Head: Normocephalic. Mouth/Throat: Mouth: Mucous membranes are moist. Eyes: Pupils: Pupils are equal, round, and reactive to light. Cardiovascular: Rate and Rhythm: Normal rate and regular rhythm. Pulmonary: Effort: Pulmonary effort is normal. Breath sounds: Normal breath sounds. Musculoskeletal: Right lower leg: Edema (1-2+) present. Left lower leg: Edema (1-2+) present. Skin: General: Skin is warm and dry. Neurological: Mental Status: He is alert and oriented to person, place, and time. Psychiatric: Mood and Affect: Mood normal. Assessment/Plan Assessment & Plan 1. Dyspnea. He has been experiencing shortness of breath since 06/22/2024, particularly with exertion. There is no associated chest pain, fever, or flu-like symptoms. Oxygen saturation was 93 on initial check and is 94 currently. Notably, there is some fluid retention observed, which may be contributing to his symptoms. An EKG and a chest x-ray have been ordered to further evaluate his condition. The results will be reviewed with Dr. Irizarry, and he will be contacted later today to discuss the findings and determine the next steps. If the chest x-ray shows pleural effusion or extra fluid, Lasix may be considered to alleviate the fluid and improve the shortness of breath. A referral to cardiology may be necessary to investigate the sudden onset of these symptoms. Problem List Items Addressed This Visit None Visit Diagnoses Shortness of breath - Primary Relevant Orders XR chest 2 views (Completed) ECG 12 lead Bilateral leg edema Health Maintenance Topic Date Due Influenza Vaccine (1) 11/18/2024 (Originally 01/21/2024) Medicare Annual Wellness (AWV) 09/14/2024 Colorectal Cancer Screening 09/27/2026 Pneumococcal Vaccine: 65+ Years Completed Immunization History Administered Date(s) Administered Hep A / Hep B 08/28/2009, 05/11/2010, 07/14/2010 Pneumococcal Conjugate PCV 13 04/19/2018 Pneumococcal Polysaccharide PPSV23 03/26/2019 Tdap 02/23/2009 Zoster, Recombinant 03/30/2020 Zoster, live 07/14/2010 -Patient's chronic conditions have been reviewed in preparation for this appointment. Protocols reviewed and updated. A collaborative plan of care has been created for pt regarding specific health concerns. Any barriers to care have been identified and addressed. Any part of this document that has been added/copied from other documents has been reviewed for accuracy and updated as appropriate at the time of the patient encounter. -Follow up for Next scheduled follow-up. Brooke Delgado NP documented in this encounter [facility] 05-10-2024 History of Present illness Narrative Images from the original note were not included. HISTORY OF PRESENT ILLNESS: EST PT Emma aJmes is an 73 y.o. @ male. (EST PT W/ BEVERLY) RECHECK (R) KNEE ; HERE FOR MRI RESULTS 04/29/24 IN [facility] XRAYS, 04/09/24 IN [facility] MRI, 04/29/24 IN [facility] NO MDP / PREDNISONE S/P CORTISONE INJ 04/19/24 NO PHYSICAL THERAPY NO PAIN MGMT PREVIOUS (R) KNEE SCOPE ~40 YRS AGO OLD NOTE : DENIES ANY CURRENT DISCOMFORT - STATES HIS KNEE PAIN HAS ALWAYS BEEN INTERMITTENT. NOTES GOOD ROM ; DENIES ANY INSTABILITY / WEAKNESS. NO SWELLING. TAKING ALEVE PRN. H/O SYMPTOMS : PAIN FOR 7 MONTHS (09/2023) ; DENIES INJURY. ALLERGIES: No Known Allergies HOME MEDICATIONS: Current Outpatient Medications Medication Instructions atorvastatin (LIPITOR) 10 mg, Oral, Daily Ibuprofen (ADVIL PO) Take by mouth PRN latanoprost (Xalatan) 0.005 % ophthalmic solution PLACE 1 DROP IN BOTH EYES AT BEDTIME Magnesium 500 MG capsule Every 24 hours omeprazole (PRILOSEC) 20 mg, Oral, Daily before breakfast timolol (Timoptic) 0.5 % ophthalmic solution INSTILL 1 DROP TO BOTH EYES EACH MORNING. PHYSICAL EXAM: Knee Musculoskeletal Exam Gait Gait is normal. Inspection Leg length disparity: no discrepancy Right Erythema: none Effusion: none Edema: none Ecchymosis: none Deformity: none Alignment: normal Palpation Right Right knee palpation is unremarkable. Increased warmth: none Masses: none Tenderness: none Range of Motion Right Right knee range of motion is normal and full. Active extension: 0 Passive extension: 0 Active flexion: 120 Passive flexion: 120 Strength Right Right knee strength is normal. Extension: 5/5. Flexion: 5/5. Instability Right Instability signs: none - stable Varus stress grade: normal Valgus stress grade: normal Anterior drawer: normal Medial Cherrie test: negative Lateral Cherrie test: negative Neurovascular Right Right knee neurovascular exam is normal. Pulses - PT: normal Posterior tibial: 2+ Capillary refill: warm and well-perfused Special Signs Right Right knee special signs are normal. Patellar apprehension: none General Constitutional: appears stated age Labored breathing: no Psychiatric: normal mood and affect Neurological: alert Skin: intact Lymphadenopathy: none Vitals: There is no height or weight on file to calculate BMI. Tobacco Use: High Risk (05/10/2024) Patient History Smoking Tobacco Use: Some Days Smokeless Tobacco Use: Never Passive Exposure: Not on file Alcohol Use: Not At Risk (09/15/2023) AUDIT-C Frequency of Alcohol Consumption: 2-4 times a month Average Number of Drinks: 1 or 2 Frequency of Binge Drinking: Never IMAGING: Procedures No orders of the defined types were placed in this encounter. ASSESSMENT: ICD-10-CM 1. Right knee pain, unspecified chronicity M25.561 2. Primary osteoarthritis of right knee M17.11 PLAN: MRI shows medial and lateral meniscus tears with DJD PF joint, He is completely asymptomatic at this point. We'll discussed his restrictions and home exercise program. We'll see him back on a when necessary basis. If his symptoms persist or worsen, would probably proceed with a arthroscopy unless his arthritic degeneration is accelerated. Questions answered in laymen terms at the bedside. The diagnosis, home exercise plan and any ongoing restrictions/ recommendations reviewed. If unable to be reached in office, I recommend evaluation at nearest Emergency Room if any symptoms worsened or new symptoms develop for requiring urgent evaluation. documented in this encounter [facility] 04-24-2024 History of Present illness Narrative Images from the original note were not included. Subjective Patient ID: Emma James is a 73 y.o. male. RT knee pain 7 MonTHS (09/2023). S/P DEPO INJ 04/09/24 (2 WKS and 1 DAY) with 20% improvement. Only had 3 days of relief. States he has not been as active as he was before, he is unsure if the improvement was because he has not been has active. He notes if he is resting and it is in the wrong position he has pain. HX RT KNEE SCOPE ~40 YRS AGO. Pain is pinpoint medial knee. Denies radiation. Taking advil. Using a topical ointment (voltaren gel and another with some relief). Will depend on activity. Sometimes wakes at HS, depends on position. Denies N/T. Minimal swelling. Denies popping. Denies giving out. Pain at rest 0/10, pain with activities 3/10, he notes the pain may get worse up to 5-6/10. He is concerned that the pain will get worse. TX: xrays noms 04/09/24, Depo medrol injection 04/09/24, advil, voltaren gel Objective Right Knee Exam Tests Cherrie: Medial - positive Lateral - negative Knee Musculoskeletal Exam Inspection Right Erythema: none Effusion: none Edema: none Ecchymosis: none Palpation Right Tenderness: present Medial joint line: moderate Range of Motion Right Active extension: 0 Active flexion: 125 Strength Right Extension: 4+/5. Flexion: 4+/5. Instability Right Medial Cherrie test: positive Lateral Cherrie test: negative Image Results: XR knee 1 or 2 views right Imaging Result: 04/09/2024: AP and lateral of right knee mild narrowing of the medial joint line with evidence of flattening of the articular surfaces to the medial tibial plateau and medial femoral condyle. There was evidence of subchondral sclerosis to the medial joint line and patellofemoral joint. There is marginal osteophytes noted to the patellofemoral joint. There is no evidence of fracture dislocations. Bony structures viewed showed appropriate ossification. Impression: Mild right knee osteoarthritis, No acute bony process noted. 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 Assessment/Plan Encounter Diagnoses: ICD-10-CM 1. Right knee pain, unspecified chronicity M25.561 2. Primary osteoarthritis of right knee M17.11 3. Internal derangement of knee, right M23.91 MR knee right wo IV contrast discussion of due to failure of conservative treatment would recommend an MRI of the right knee without contrast, activities as tolerated, f/u s/p MRI to be done at [facility] in [place] documented in this encounter [facility] 04-17-2024 Telephone encounter Note See email to pt. [facility] 04-17-2024 Miscellaneous Notes See email to pt. documented in this encounter [facility] 04-09-2024 History of Present illness Narrative Associated Order(s): L Inj/Asp: R knee Post-Procedure Diagnose(s): Primary osteoarthritis of right knee Images from the original note were not included. NAME: Emma James : 1950 HISTORY OF PRESENT ILLNESS: Emma James is an 73 y.o. @ male. RT KNEE PAIN ~ 6 MTHS. XRAY TODAY EPIC 04/09/24 HX RT KNEE SCOPE ~40 YRS AGO. PAIN IS MEDIAL. STATES THERE IS A BUMP THERE. TAKES MEDS FOR OSTEOARTHRITIS. DENIES N/T. UNSURE OF SWELLING. ADMITS POPPING/GRINDING. PAST MEDICAL HISTORY: No past medical history on file. PAST SURGICAL HISTORY: Past Surgical History: Procedure Laterality Date APPENDECTOMY HERNIA REPAIR KNEE ARTHROSCOPY W/ LATERAL RETINACULAR REPAIR OTHER SURGICAL HISTORY Bilateral knees RHINOPLASTY ROTATOR CUFF REPAIR ALLERGIES: No Known Allergies HOME MEDICATIONS: Current Outpatient Medications Medication Instructions Ibuprofen (ADVIL PO) Take by mouth PRN latanoprost (Xalatan) 0.005 % ophthalmic solution PLACE 1 DROP IN BOTH EYES AT BEDTIME Magnesium 500 MG capsule Every 24 hours omeprazole (PRILOSEC) 20 mg, Oral, Daily before breakfast timolol (Timoptic) 0.5 % ophthalmic solution INSTILL 1 DROP TO BOTH EYES EACH MORNING. Vitals: There is no height or weight on file to calculate BMI. PHYSICAL EXAM: Right Knee Exam Tenderness The patient is experiencing tenderness in the medial joint line. Range of Motion Extension: 0 Flexion: 140 Tests Cherrie: Medial - negative Lateral - negative Varus: negative Valgus: negative Drawer: Anterior - negative Posterior - negative Other Sensation: normal Pulse: present Swelling: mild Comments: Small mass felt over medial aspect of knee near medial femoral condyle IMAGING: XR knee 1 or 2 views right Imaging Result: 04/09/2024: AP and lateral of right knee mild narrowing of the medial joint line with evidence of flattening of the articular surfaces to the medial tibial plateau and medial femoral condyle. There was evidence of subchondral sclerosis to the medial joint line and patellofemoral joint. There is marginal osteophytes noted to the patellofemoral joint. There is no evidence of fracture dislocations. Bony structures viewed showed appropriate ossification. Impression: Mild right knee osteoarthritis, No acute bony process noted. 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 XR knee 1 or 2 views right Imaging Result: 04/09/2024: AP and lateral of right knee mild narrowing of the medial joint line with evidence of flattening of the articular surfaces to the medial tibial plateau and medial femoral condyle. There was evidence of subchondral sclerosis to the medial joint line and patellofemoral joint. There is marginal osteophytes noted to the patellofemoral joint. There is no evidence of fracture dislocations. Bony structures viewed showed appropriate ossification. Impression: Mild right knee osteoarthritis, No acute bony process noted. Celso Montano APRN-DIRECTOR TECHNICAL L Inj/Asp: R knee on 04/09/2024 12:39 PM Indications: pain Details: 21 G needle, anterolateral approach Medications: 40 mg methylPREDNISolone acetate 40 MG/ML Outcome: tolerated well, no immediate complications Site cleaned with isopropyl alcohol Procedure, treatment alternatives, risks and benefits explained, specific risks discussed. Consent was given by the patient. ASSESSMENT: ICD-10-CM 1. Primary osteoarthritis of right knee M17.11 2. Right knee pain, unspecified chronicity M25.561 XR knee 1 or 2 views right PLAN: Questions answered in laymen terms at the bedside. The diagnosis, home exercise plan and any ongoing restrictions/ recommendations reviewed. If unable to be reached in office, I recommend evaluation at nearest Emergency Room if any symptoms worsened or new symptoms develop for requiring urgent evaluation. Celso Montano APRN-CORA documented in this encounter [facility] 03-22-2024 History of Present illness Narrative Images from the original note were not included. Emma James is a 73 y.o. male presents with chief complaint of Six-month office visit, Doctors office visit (Patient would like to discuss only coming in for an appointment once a year.), and Magnesium oil (Patient reports he has been putting magnesium oil on his feet for pain, and this has worked for his pain/) HPI: HPI History of Present Illness The patient presents for evaluation of foot pain. He reports that his daughter provided him with magnesium oil, which he has been applying to his feet. This treatment appears to be effective in alleviating his foot pain. Additionally, he is taking magnesium supplements to prevent muscle cramps, particularly after a day of physical activity. He notes that if he does not take the supplement, he experiences muscle cramps. He also mentions a change in his bowel movements since his hernia operation, with two bowel movements each morning - the first being solid and the second looser. This change occurred post-surgery and has not resolved itself. He has not had any recent blood work done. His last meal was 2 packs of F[employer] cookies and a glass of milk, consumed an hour ago. HISTORIES: PAST MEDICAL HISTORY: History reviewed. No pertinent past medical history. SURGICAL HISTORY: Past Surgical History: Procedure Laterality Date APPENDECTOMY HERNIA REPAIR KNEE ARTHROSCOPY W/ LATERAL RETINACULAR REPAIR OTHER SURGICAL HISTORY Bilateral knees RHINOPLASTY ROTATOR CUFF REPAIR SOCIAL HISTORY: Social History Tobacco Use Smoking status: Some Days Types: Cigarettes, Cigars Smokeless tobacco: Never Substance Use Topics Alcohol use: Yes Depression: Not at risk (09/15/2023) PHQ-2 PHQ-2 Score: 0 FAMILY HISTORY: Family History Problem Relation Name Age of Onset Heart failure Mother Diabetes Sister Diabetes Brother Heart disease Maternal Grandmother Cancer Paternal Grandmother Diabetes Paternal Grandmother Heart disease Paternal Grandfather MEDICATIONS: Current Outpatient Medications Medication Instructions Ibuprofen (ADVIL PO) Take by mouth PRN latanoprost (Xalatan) 0.005 % ophthalmic solution PLACE 1 DROP IN BOTH EYES AT BEDTIME Magnesium 500 MG capsule Every 24 hours omeprazole (PRILOSEC) 20 mg, Oral, Daily before breakfast timolol (Timoptic) 0.5 % ophthalmic solution INSTILL 1 DROP TO BOTH EYES EACH MORNING. ALLERGIES: No Known Allergies PHYSICAL EXAM: Visit Vitals Smoking Status Some Days BP Readings from Last 3 Encounters: 09/15/23 120/80 09/02/22 100/70 08/27/21 132/66 Wt Readings from Last 3 Encounters: 09/15/23 210 lb 09/02/22 215 lb 6.4 oz 08/27/21 212 lb 12.8 oz Physical Exam Physical Exam Results ASSESSMENT AND PLAN: Assessment & Plan 1. Foot pain. The patient reports using magnesium oil on his feet for pain relief, which he finds effective. He is advised to continue using the magnesium oil as it helps alleviate his foot pain. 2. Muscle cramps. He takes magnesium orally to prevent muscle cramps, especially after physical activity. He reports that this regimen is effective in preventing cramps. He is advised to continue taking magnesium as needed to manage muscle cramps. 3. Post-hernia surgery bowel changes. The patient experiences two bowel movements each morning, with the first being solid and the second looser, a pattern that started after his hernia operation years ago. This condition is noted, and no immediate intervention is planned. 4. Health Maintenance. Blood work has been ordered today to monitor his overall health status, despite having eaten two packs of [employer] cookies and a glass of milk an hour before the visit. Diagnosis Plan 1. Benign fasciculation-cramp syndrome mg+ works well 2. Obesity, unspecified class, unspecified obesity type, unspecified whether serious comorbidity present CBC Comprehensive metabolic panel CBC Comprehensive metabolic panel 3. Hypercholesteremia (CMS/HCC) Lipid panel Lipid panel 4. Screening PSA (prostate specific antigen) PSA, total and free PSA, total and free documented in this encounter [facility] Evaluation note Diagnosis Primary osteoarthritis of right knee- Primary Right knee pain, unspecified chronicity [facility] Diagnosis Benign fasciculation-cramp syndrome- Primary Unspecified myoneural disorders Obesity, unspecified class, unspecified obesity type, unspecified whether serious comorbidity present Hypercholesteremia (CMS/HCC) Pure hypercholesterolemia Screening PSA (prostate specific antigen) Special screening for malignant neoplasm of prostate documented [facility]* Diagnosis Hypercholesteremia (CMS/HCC)- Primary Pure hypercholesterolemia documented [facility]* Diagnosis Right knee pain, unspecified chronicity- Primary Primary osteoarthritis of right knee Internal derangement of knee, right documented [facility]* Diagnosis Right knee pain, unspecified chronicity- Primary Primary osteoarthritis of right knee [facility]* Diagnosis Shortness of breath- Primary Bilateral leg edema Edema Shortness of breath documented in this encounter [facility]* Diagnosis Atrial fibrillation, unspecified type (HCC)- Primary Bilateral leg edema Edema S/P Maze operation for atrial fibrillation Other postprocedural status Status post ligation of left atrial appendage S/P CABG x 3 Postsurgical aortocoronary bypass status Acute diastolic heart failure secondary to coronary artery disease (HCC) Blood loss anemia Acute posthemorrhagic anemia Elevated liver enzymes Other nonspecific abnormal serum enzyme levels Mixed hyperlipidemia Mixed hyperlipidemia documented in this encounter [facility] Summary Purpose Family History No Family History Records FoundNo Family History Records FoundNo Family History Records FoundNo Family History Records FoundNo Family History Records FoundNo Family History Records Found Advance Directives Date Activated Date Inactivated Comments 09/15/2023 11:41 AM Date Activated Date Inactivated Comments 09/15/2023 11:41 AM Additional Source Comments (unrecognized sect ion and content) No Status Records FoundNo Status Records FoundNo Status Records FoundNo Status Records FoundNo Status Records FoundNo Status Records Found INFORMATION SOURCE (unrecogn ized section and content) DATE CREATED AUTHOR 11/10/2017 [facility] DATE CREATED AUTHOR AUTHOR'S ORGANIZ ATION 11/10/2017 [facility] DATE CREATED AUTHOR AUTHOR'S ORGANIZ ATION 11/14/2017 [facility] DATE CREATED AUTHOR AUTHOR'S ORGANIZ ATION 03/15/2018 [facility] DATE CREATED AUTHOR AUTHOR'S ORGANIZ ATION 09/02/2024 [facility] DATE CREATED AUTHOR AUTHOR'S ORGANIZ ATION 11/23/2024 [facility] Care Teams (unrecognized sec tion and content) Water Quality Specialist Relationship Specialty Start Date End Date Dennis Irizarry DO [address] [place] [address] PCP - General Internal Medicine 09/27/22 Dennis Irizarry DO [address] [place] [address] PCP - ACO Reach 10/13/22 Water Quality Specialist Relationship Specialty Start Date End Date Dennis Irizarry DO [address] [place] [address] PCP - General Internal Medicine 09/27/22 Dennis Irizarry, [address] [place] [address] PCP - ACO Reach 10/13/22 Water Quality Specialist Relationship Specialty Start Date End Date Dennis Irizarry, [address] [place] [address] PCP - General Internal Medicine 09/27/22 Dennis Irizarry, [address] [place] [address] PCP - ACO Reach 10/13/22 Water Quality Specialist Relationship Specialty Start Date End Date Dennis Irizarry, DO [address] [place] [address] PCP - General Internal Medicine 09/27/22 Dennis Irizarry, DO [address] [place] [address] PCP - ACO Reach 10/13/22 Water Quality Specialist Relationship Specialty Start Date End Date Dennis Irizarry, [address] [place] [address] PCP - General Internal Medicine 09/27/22 Dennis Irizarry, DO [address] [place] [address] PCP - ACO Reach 10/13/22 Water Quality Specialist Relationship Specialty Start Date End Date Dennis Irizarry, [address] [place] [address] PCP - General Internal Medicine 09/27/22 Dennis Irizarry DO [address] [place] [address] PCP - ACO Reach 10/13/22 Water Quality Specialist Relationship Specialty Start Date End Date Dennis Irizarry, [address] [place] [address] PCP - General Internal Medicine 09/27/22 Dennis Irizarry, [address] [place] [address] PCP - ACO Reach 10/13/22 Water Quality Specialist Relationship Specialty Start Date End Date Dennis Irizarry, [address] [place] [address] PCP - General Internal Medicine 09/27/22 Dennis Irizarry, [address] [place] [address] PCP - ACO Reach 10/13/22 Water Quality Specialist Relationship Specialty Start Date End Date Dennis Irizarry, [address] [place] [address] PCP - General Internal Medicine 09/27/22 Dennis Irizarry, [address] [place] [address] PCP - ACO Reach 10/13/22 Water Quality Specialist Relationship Specialty Start Date End Date Dennis Irizarry, DO [address] [place] [address] PCP - General Internal Medicine 09/27/22 Dennis Irizarry, DO [address] [place] [address] PCP - ACO Reach 10/13/22 Water Quality Specialist Relationship Specialty Start Date End Date Dennis Irizarry, DO [address] [place] [address] PCP - General Internal Medicine 09/27/22 Dennis Irizarry, DO [address] [place] [address] PCP - ACO Reach 10/13/22 Reason for Visit (unrecogniz ed section and content) Reason Comments Pain Reason Comments Six-month office visit Doctors office visit Patient would like to discuss only coming in for an appointment once a year. Magnesium oil Patient reports he h as been putting magnesium oil on his feet for pain, and this has worked for his pain Reason Comments Follow-up Reason Comments Pain Reason Comments Shortness of Breath With exertion. Start ed on June. Reason Comments Review ECHO Results Hospital Follow-up Declines Prevnar 20 vax FOR RECORDS PERTAINING TO PATIENTS WHO ARE OR HAVE BEEN ENROLLED IN A CHEMICAL DEPENDENCY/SUBSTANCEABUSE PROGRAM, SOME INFORMATION MAY BE OMITTED. This clinical summary was aggregated from multiple sources. Caution should be exercised in using it in the provision of clinical care. This summary normalizes information from multiple sources, and as a consequence, information in this document may materially change the coding, format and clinical context of patient data. In addition, data may be omitted in some cases. CLINICAL DECISIONS SHOULD BE BASED ON THE PRIMARY CLINICAL RECORDS. [facility]. provides no warranty or guarantee of the accuracy or completeness of information in this document.
--- NOTE | 2024-12-06 07:14 | CA_ITS ---
Patient Name: EMMA ALVARENGA MR#: [id number] : 1950 Exam Date: 12/06/2024 Ordering Doctor: DR YUMIKO ABAD M.D. ECHOCARDIOGRAM REPORT PROCEDURE: CA ECHO DOPPLER COMPLETE INDICATIONS: CHF, YAMILA, BARRIENTOS COMPARISON: None. DESCRIPTION: COMPLETE ECHOCARDIOGRAM Real-time transthoracic echocardiography with 2D, M-mode, spectral and color flow Doppler performed. QUALITY: Technical quality was good. LEFT VENTRICLE: Normal chamber size. Mild concentric left ventricular hypertrophy. Global left ventricular systolic function is normal without wall motion abnormalities. Calculated left ventricular ejection fraction is 67% LV EF: 67% DIASTOLIC: Normal diastolic function. ATRIAL SEPTUM: Appears intact LEFT ATRIUM: Mild dilatation. RIGHT ATRIUM: Moderate dilatation. RIGHT VENTRICLE: Normal chamber size. Normal right ventricular systolic function. TRICUSPID VALVE: Normal mobility and thickness. No stenosis with mild regurgitation. No evidence of pulmonary hypertension.RVSP 29mmHg. MITRAL VALVE: Normal mobility and thickness. No evidence of mitral valve stenosis. There is no mitral annular calcification. Trivial mitral regurgitation. AORTIC VALVE: Normal trileaflet appearance. Mildly calcified aortic valve. Normal leaflet mobility. No evidence of aortic valve stenosis. No aortic regurgitation. AORTIC ROOT: Normal diameter and appearance. PULMONIC VALVE: Normal thickness and mobility. No stenosis. Trivial regurgitation. PERICARDIUM: No evidence of pericardial effusion. IVC: Collapes with inspirations. Mild dilatation measuring 2.3cm. PLEURA: CONCLUSION: Mild concentric left ventricular hypertrophy Normal left ventricle systolic function without wall motion abnormalities, ejection fraction 67% Normal left ventricular diastolic function Normal right ventricular size and systolic function Normal right-sided pressures Mildly dilated left atrium and moderately dilated right atrium No significant valvular abnormalities Adult Echocardiography Procedure Report Left Ventricle LVEDD (3.7 - 5.6 cm): 5.10 cm LVESD (2.2 - 4.0 cm): 3.81 cm LVIVS thickness (0.6 - 1.2 cm): 1.19 cm LVPW thickness (0.5 - 1.0 cm): 1.20 cm e': 0.15 m/s E - e': 4.11 LVOT Max Gradient: 2.92 mm[Hg] LVOT Area (cm2): 0.85 m/s Peak Velocity (LVOT): 0.85 m/s Mean Velocity (LVOT): 0.60 m/s LVOT Diameter 2.41 cm Left Ventricular Ejection Fraction: 66.55 % Left Atrium LA Volume Index (2D A2C): 40.60 ml/m2 Left Atrium Systolic Dimension: 4.50 cm Mitral Valve MV E to A Ratio: 1.77 MV Max Gradient: MV Mean Gradient: Mitral Valve A-Wave Peak Velocity: 0.35 m/s Mitral Valve E-Wave Peak Velocity: 0.62 m/s Cardiovascular Orifice Area: Right Ventricle RV Internal Diastolic Dimension: 3.88 cm Aorta AO Root Diam: 3.52 cm Ascending Ao Diam: 2.98 cm Aortic Valve AoV Area (Peak Ed): 2.94 cm2, 2.94 cm2 AoV Area (VTI): 2.99 cm2, 2.99 cm2 Deceleration Woodruff: Pressure Half-Time: Peak Velocity(Antegrade Flow): 1.33 m/s Peak Gradient(Antegrade Flow): 7.03 mm[Hg] Mean Velocity(Antegrade Flow): 0.89 m/s Mean Gradient(Antegrade Flow): 3.69 mm[Hg] Velocity Time Integral: 29.14 cm Tricuspid Valve Peak Velocity (Regurgitant Flow): 1.82 m/s, 2.00 m/s, 2.26 m/s Peak Velocity: Pulmonic Valve Mean Gradient: Mean Velocity: Peak Velocity: 1.17 m/s Peak Gradient: 5.52 mm[Hg], 5.52 mm[Hg] Right Atrium Right Atrium Systolic Pressure: Dictated by: Thompson Chowdary MD on 12/07/2024 at 18:17 Approved by: Thompson Chowdary MD on 12/07/2024 at 18:23
== END 2024-12-06 07:06 | disposition home or self-care (01) ==
LOC: CARD 07:06
PROVIDERS: Family Provider Internal Medicine; PCP Internal Medicine; Visit Provider Internal Medicine Interventional Cardiology
DX: M79.89 Other specified soft tissue disorders (principal); R06.09 Other forms of dyspnea; I50.23 Acute on chronic systolic (congestive) heart failure
CPT/HCPCS: 93306; 93356

== ENCOUNTER 2024-12-13 07:53 | Outpatient (RCR) | payer MEDICARE, OTHER, SELFPAY ==
--- NOTE | 2024-09-18 09:52 | CR1_ITS ---
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 Electronically Signed On 09-23-2024 13:37:19 EDT by Steve Albright
--- NOTE | 2024-09-20 12:27 | CR1_ITS ---
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 Electronically Signed On 09-23-2024 13:37:01 EDT by Steve Albright
--- NOTE | 2024-10-16 07:11 | CR1_ITS ---
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 Electronically Signed On 10-16-2024 9:16:57 EDT by Steve Albright
--- NOTE | 2024-11-14 08:11 | CR1_ITS ---
The 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 Perhaps looking ahead in his schedule, he would be able to identify alternative sessions that would fit into his life easier. The patient is encouraged to continue participating in cardiac rehabilitation. Electronically Signed On 11-14-2024 15:33:33 EDT by Steve Albright
== END 2024-12-25 07:05 | disposition home or self-care (01) ==
LOC: CR 07:53
PROVIDERS: Family Provider Internal Medicine; PCP Internal Medicine; Visit Provider Internal Medicine Interventional Cardiology
DX: I49.9 Cardiac arrhythmia, unspecified (principal); Z95.1 Presence of aortocoronary bypass graft
CPT/HCPCS: 93798

== ENCOUNTER 2024-12-24 10:49 | Outpatient (OUT) | payer MEDICARE, OTHER, SELFPAY ==
--- OUTSIDE RECORDS SUMMARY | 2024-12-24 10:52 | XMS_ITS | Encounter Summary ---
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 No 08/14/2024 Humiliation, Afraid, Rape, and Kick questionnair e Answer Date Recorded Within the last year, have y ou been afraid of your partner or ex-partner? No 08/14/2024 Emotionally Abused Not on file 08/14/2024 Physically Abused Not on file 08/14/2024 Sexually Abused Not on file 08/14/2024 Overall Financial Resource Strain (CARDIA) Answe r Date Recorded How hard is it for you to pa y for the very basics like food, housing, medical care, and heating? Not hard at all 08/14/2024 PHQ-2 Answer Date Recorded Patient Health Questionnaire-2 Score 0 08/29/2024 Transportation Answer Date Recorded In the past 12 months, has l ack of transportation kept you from medical appointments or from getting medications? No 08/14/2024 Lack of Transportation (Non-Medical) Not on file 08/14/2024 Housing Stability Vital Sign Answer Jr e Recorded In the last 12 months, was t here a time when you were not able to pay the mortgage or rent on time? Yes 08/14/2024 Number of Times Moved in the Last Year Not on fi le 08/14/2024 At any time in the past 12 m [facility], were you homeless or living in a long-term (including now)? No 08/14/2024 Hunger Vital Sign Answer Date Recorded Within the past 12 months, y ou worried that your food would run out before you got the money to buy more. Never true 08/15/19 25 Ran Out of Food in the Last Year Not on file 08/14/2024 Sex and Gender Information Value Date Recorded Sex Assigned at Not on file Legal Sex Male 10:26 AM EST Gender Identity Not on file Sexual Orientation Not on file documented as of this encounter Plan of Treatment Upcoming Encounters Date Type Department Care Team (Late st Contact Info) Description 01/15/2025 10:30 AM EDT Office Visit [facility] [address] [place] [phone] Laina Mcqueen MD [address] [facility] [place] [address] documented as of this encounter Visit Diagnoses Diagnosis 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
--- OUTSIDE RECORDS SUMMARY | 2024-12-24 10:52 | XMS_ITS | Encounter Summary ---
Author Organization [facility] Address [address] [place] [address] Care Team Providers Care Hydrologist Name Role Phone Sacha Irizarry DO Primary Care Provider [phone] Sacha Irizarry DO Unavailable [phone] Bri Alva LPN Unavailable [phone] Amber Lopez RN Unavailable [phone] Encounter Details Date Type Department Care Team (Late st Contact Info) Description 07/31/2024 Orders Only [facility] [address] [facility] [address] [place] [address] Sacha Irizarry DO [address] [facility] [address] [place] [address] Bilateral leg edema; SOB (shortness of breath); Agatston coronary artery calcium score less than 100; Chest pain, unspecified type Social History Tobacco Use Types Packs/Day Years Used Date Smoking Tobacco: Some Days Cigarettes Cigars Smokeless Tobacco: Never Alcohol Use Standard Drinks/Week Comments Yes 0 (1 standard drink = 0.6 oz pur e alcohol) AUDIT-C Answer Date Recorded Q1: How often do you have a drink containing alc ohol? 2-4 times a month 09/15/2023 Q2: How many drinks containi ng alcohol do you have on a typical day when you are drinking? 1 or 2 09/15/2023 Q3: How often do you have si x or more drinks on one occasion? Never 09/15/2023 PHQ-2 Answer Date Recorded Patient Health Questionnaire-2 Score 0 09/15/2023 Sex and Gender Information Value Date Recorded Sex Assigned at Not on file Legal Sex Male 6:48 PM EDT Gender Identity Not on file Sexual Orientation Not on file documented as of this encounter Plan of Treatment Upcoming Encounters Date Type Department Care Team (Late st Contact Info) Description 03/28/2025 9:00 AM EST Office Visit [facility] [address] [place] [address] Sacha Irizarry DO [address] [place] [address] documented as of this encounter Procedures Procedure Name Priority Date/Time Associated Diagnosis Comments ECG 12-LEAD High Priority 07/31/2024 8:36 AM EDT Bilateral leg edema SOB (shortness of breath) Agatston coronary artery calcium score less than 100 Chest pain, unspecified type documented in this encounter Results * ECG 12 lead (07/31/2024 8:36 AM EDT) us Sacha Irizarry DO ECG ORDERABLES Final Result Performing Organization Address City/State/[facility] Co de Phone Number [facility] [address] [place] [address], documented in this encounter Visit Diagnoses Diagnosis Bilateral leg edema Edema SOB (shortness of breath) Shortness of breath Agatston coronary artery calcium score less than 100 Chest pain, unspecified type documented in this encounter Care Teams Hydrologist Relationship Specialty Start Date End Date Sacha Irizarry DO [address] [place] [address] PCP - General Internal Medicine 09/27/22 Sacha Irizarry DO [address] [place] [address] PCP - ACO Reach 10/13/22 Bri Alva LPN [address] [place] [address] Licensed Practical Nurse Family Medicine 08/14/2408/15 Amber Lopez RN [address] [facility] [address] [place] [address] Registered Nurse Family Medicine 08/15/24 08/15/24 documented as of this encounter
--- OUTSIDE RECORDS SUMMARY | 2024-12-24 10:52 | XMS_ITS | Encounter Summary ---
Author Organization [facility] Address [address] [place] [address] Care Team Providers Care Manufacturing Scheduler Name Role Phone Sacha Irizarry DO Primary Care Provider Sacha Irizarry DO Unavailable [phone] Encounter Details Date Type Department Care Team (Late st Contact Info) Description 09/03/2024 Results [facility] [address] [facility] [address] [place] [address] Sacha Irizarry DO [address] [facility] [address] [place] [address] Social History Tobacco Use Types Packs/Day Years Used Date Smoking Tobacco: Some Days Cigars Smokeless Tobacco: Never Alcohol Use Standard Drinks/Week Comments Yes 3 (1 standard drink = 0.6 oz pur e alcohol) Occasional AUDIT-C Answer Date Recorded Q1: How often [...] Description 03/28/2025 9:00 AM EST Office Visit [facility] [place] [facility] [address] [place] [address] Sacha Irizarry DO [address] [facility] [address] [place] [address] documented as of this encounter Visit Diagnoses Not on filedocumented in this encounter Care Teams Manufacturing Scheduler Relationship Specialty Start Date End Date Sacha Irizarry DO [address] [facility] [address] [place] [address] PCP - General Internal Medicine 09/27/22 Sacha Irizarry DO [address] [facility] [address] [place] [address] PCP - ACO Reach 10/13/22 documented as of this encounter
--- OUTSIDE RECORDS SUMMARY | 2024-12-24 10:52 | XMS_ITS | Encounter Summary ---
Author Organization [facility] Address [address] [place] [address] Care Team Providers Care Claim Clinician Name Role Phone Bryandanielastew Sacha Daniels DO Primary Care Provider [phone] Juan CSacha Frances MURRAY Unavailable [phone] Encounter Details Date Type Department Care Team (Late st Contact Info) Description 08/29/2024 Orders Only [facility] [place] [facility] [address] [facility] [address] [place] [phone] Unallocated, Noms Provider, [address] [place], [place] [phone] Social History Tobacco Use Types Packs/Day Years [...] Visit [facility] [place] [facility] [address] [facility] [place] [address] Sacha Irizarry DO [address] [facility] [address] [place] [address] documented as of this encounter Procedures Procedure Name Priority Date/Time Associated Diagnosis Comments RHYTHM ECG, REPORT Routine 08/29/2024 3:49 PM EDT documented in this encounter Results * ECG 3 Lead (08/29/2024 3:49 PM EDT) us [facility] Provider Unallocated MD IN CLINIC/BEDSIDE O RDERABLES Final Result documented in this encounter Visit Diagnoses Not on filedocumented in this encounter Care Teams Claim Clinician Relationship Specialty Start Date End Date Sacha Irizarry DO [address] [facility] [place] [address] PCP - General Internal Medicine 09/27/22 Sacha Irizarry DO [address] [facility] [place] [address] PCP - ACO Reach 10/13/22 documented as of this encounter
--- OUTSIDE RECORDS SUMMARY | 2024-12-24 10:52 | XMS_ITS | Encounter Summary ---
Author Organization [facility] Address [address] [place] [address] Care Team Providers Care Motor Setter Name Role Phone Sacha Irizarry DO Primary Care Provider [phone] Sacha Irizarry DO Unavailable [phone] Bri Alva LPN Unavailable [phone] JessicaAmber kulkarni RN Unavailable [phone] Reason for Referral * Imaging (Routine) - Closed Specialty Diagnoses / Procedures Referred By Contac t Referred To Contact Radiology Diagnoses Bilateral leg edema SOB (shortness of breath) Agatston coronary artery calcium score less than 100 Chest pain, unspecified type Procedures Transthoracic echo (TTE) complete Sacha Irizarry DO [address] [facility] [address] [place] [address] Phone: tel: fax: [facility] Scheduling [address] [place] [address] Phone: tel: fax: Referral ID Status Reason Start Date Expiration Date V isits Requested Visits Authorized [id number] Closed Perform Procedure 07/17/2024 01/13/2025 1 1 * Imaging (Routine) - Closed Specialty Diagnoses / Procedures Referred By Contac t Referred To Contact [facility] Diagnoses Bilateral leg edema SOB (shortness of breath) Agatston coronary artery calcium score less than 100 Chest pain, unspecified type Procedures Stress test with myocardial perfusion Sacha Irizarry DO [address] [place] [address] Phone: tel: fax: [facility] [address] [place] [address] Phone: tel: fax: Referral ID Status Reason Start Date Expiration Date Visits Re quested Visits Authorized [id number] Closed 07/17/2024 01/13/2025 3 3 Encounter Details Date Type Department Care Team (Late st Contact Info) Description 07/17/2024 Orders Only [facility] [address] [facility] [address] [place] [phone] Nathalie Fuentes LPN Bilateral leg edema; SOB (shortness of breath); [...] Encounters Date Type Department Care Team (Late Contact Info) Description 03/28/2025 9:00 AM EST Office Visit [facility] [address] [facility] [place] [address] Sacha Irizarry DO [address] [place] [address] Scheduled Orders Name Type Priority Associated Diagnoses Orde r Schedule Stress test with myocardial perfusion Cardiac Nuclear Medicine Routine Bilateral leg edema SOB (shortness of breath) Agatston coronary artery calcium score less than 100 Chest pain, unspecified type Expected: 07/17/2024 (Approximate), Expires: 10/14/2024 documented as of this encounter Results * ECG 12 lead (07/31/2024 8:36 AM EDT) us Sacha Irizarry DO ECG ORDERABLES Final Result [facility] [address] [place] [address], [place] * Transthoracic echo (TTE) complete (07/23/2024 9:55 AM EST) Anatomical Region Laterality Modality Heart Ultrasound us Sacha Irizarry DO CV ECHO PROCEDURES Final Res ult documented in this encounter Visit Diagnoses Diagnosis Bilateral leg edema Edema SOB (shortness of breath) Shortness of breath Agatston coronary artery calcium score less than 100 Chest pain, unspecified type documented in this encounter Care Teams Motor Setter Relationship Specialty Start Date End Date Sacha Irizarry DO [address] [place] [address] PCP - General Internal Medicine 09/27/22 Sacha Irizarry DO [address] [place] [address] PCP - ACO Reach 10/13/22 Bri Alva LPN [address] [place] [address] Licensed Practical Nurse Family Medicine 08/14/2408/15 Amber Lopez, RN [address] [place] [address] Registered Nurse Family Medicine 08/15/24 08/15/24 documented as of this encounter
--- OUTSIDE RECORDS SUMMARY | 2024-12-24 10:52 | XMS_ITS | Encounter Summary ---
Author Organization [facility] Address [address] [place] [address] Care Team Providers Care Border Police Name Role Phone Sacha Irizarry DO Primary Care Provider Sacha Irizarry DO Unavailable [phone] Reason for Visit * Reason Comments Med Refill Encounter Details Date Type Department Care Team (Late st Contact Info) Description 12/17/2024 Refill [facility] Internal Medicine [address] [facility] [address] [place] [address] Sacha Irizarry DO [address] [facility] [address] [place] [address] Gastroesophageal reflux disease without esophagitis Social History Tobacco Use Types Packs/Day Years [...] Visit [facility] [place] [facility] [address] [facility] [address] [place] [address] Sacha Irizarry DO [address] [facility] [address] [place] [address] documented as of this encounter Visit Diagnoses Diagnosis Gastroesophageal reflux disease without esophagitis Esophageal reflux documented in this encounter Care Teams Border Police Relationship Specialty Start Date End Date Sacha Irizarry DO [address] [facility] [address] [place] [address] PCP - General Internal Medicine 09/27/22 Sacha Irizarry DO [address] [facility] [address] [place] [address] PCP - ACO Reach 10/13/22 documented as of this encounter
--- OUTSIDE RECORDS SUMMARY | 2024-12-24 10:52 | XMS_ITS | Clinical Summary ---
Author Organization [facility] Address [address] [place] [address] Care Team Providers Care Gas Desulfurizer Name Role Phone Dennis Irizarry DO Primary Care Provider [phone] Dennis Irizarry DO Unavailable [phone] Allergies No known active allergies Medications latanoprost (Xalatan) 0.005 % ophthalmic solution 08/01/19 24 Active timolol (Timoptic) 0.5 % ophthalmic solution 07/05/19 24 Active Magnesium 500 MG capsule 1 (one) time each day at the same time Active atorvastatin (Lipitor) 10 MG tabletIndicatio ns:Hypercholest eremia Take 1 tablet (10 mg) by mouth Daily 30 tablet 3 04/17/20 24 025 Active Additional Information Patient not taking.Reported on 09/02/2024 acetaminophen (Tylenol) 500 MG tablet Take 500 mg by mouth every 6 (six) hours if needed 08/22/19 25 Active omeprazole (PriLOSEC) [address] capsuleIndicati ons:Gastroesoph ageal reflux disease without esophagitis TAKE 1 CAPSULE (20 MG) BY MOUTH IN THE MORNING. TAKE BEFORE MEALS. 90 capsule 3 12/18/19 25 Active omeprazole (PriLOSEC) [address] capsuleIndicati ons:Gastroesoph ageal reflux disease without esophagitis TAKE 1 CAPSULE (20 MG) BY MOUTH IN THE MORNING. TAKE BEFORE MEALS. 90 capsule 3 10/26/19 24 025 Discontinued aspirin 81 MG chewable tablet Chew 81 mg in the morning. 08/22/19 025 clopidogrel (Plavix) 75 MG tablet Take 75 mg by mouth in the morning. 08/22/19 025 Active Problems Problem Noted Date Diagnosed Date Abnormal ECG 11/02/2024 Overview (11/02/2024): RBBB/LAHB Status post ligation of left atrial appendage S/P Maze operation for atrial fibrillation 11/02 Atrial fibrillation 11/02/2024 Mixed hyperlipidemia 11/02/2024 S/P CABG x 3 11/02/2024 Overview (11/02/2024): [facility] LOPEZ TO LAD, SVG TO 2ND OM, SVG TO DISTAL RIGHT CORONARY ARTERY WITH ENDOSCOPIC PROCUREMENT OF SAPHENOUS VEIN GRAFT (Left: Leg Lower), Cervical spondylosis without myelopathy 09/14/19 24 Chronic pain disorder 09/14/2023 Agatston coronary artery calcium score less than 100 07/20/2017 Overview (11/02/2024): 2.38 CACS Osteoarthritis 03/19/2017 Chronic neck pain 03/19/2017 Gastroesophageal reflux disease without esophagi tis 03/19/2017 Resolved Problems Problem Noted Date Diagnosed Date Resolved Date Hypercholesteremia 09/14/2023 Obesity 09/14/2023 11/02/2024 Encounters Date Type Department Care Team Description 12/17/2024 Refill [facility] [address] [place] [phone] Dennis Irizarry, Gastroesophageal reflux disease without esophagitis 12/07/2024 Cl[facility]ync Result Encounter [facility] External Department Unsolicited Provider, Generic External Data 11/25/2024 Cl[facility]ync Result Encounter [facility] External Department Unsolicited Provider, Generic External Data 11/14/2024 [facility] Result Encounter [facility] External Department Unsolicited Provider, Generic External Data 10/16/2024 Cl[facility] Result Encounter [facility] External Department Unsolicited Provider, Generic External Data from Last 3 Months Immunizations Immunization Administration Dates Next Due Hep A / Hep B 07/14/2010,05/11/2010,08/28/2009 Pneumococcal Conjugate PCV 13 04/19/2018 Pneumococcal Polysaccharide PPSV23 03/26/2019 Tdap 02/23/2009 Zoster, Recombinant 03/30/2020 Zoster, live 07/14/2010 Family History Medical History Relation Name Comments Diabetes Brother Casey Heart disease Maternal Grandmother Alfreda Heart failure Mother Ada Hypertension Mother Ada Heart disease Paternal Grandfather WG Cancer Paternal Grandmother Elizabeth Diabetes Paternal Grandmother Elizabeth Diabetes Sister Nadia Paul Relation Name Status Comments Brother Casey Maternal Grandmother [place] Mother Ada Paternal Grandfather WG Paternal Grandmother Elizabeth Sister Nadia Paul Social History Tobacco Use Types Packs/Day Years Used Date Smoking Tobacco: Some Days Cigars Smokeless Tobacco: Never Tobacco Cessation:Ready to Q uit: Not Asked; Counseling Given: Not Answered Alcohol Use Standard Drinks/Week Comments Yes 3 [...] on file Sexual Orientation Not on file Last Filed Vital Signs Vital Sign Reading Time Taken Comments Blood Pressure 110/70 09/02/2024 9:22 AM EDT Pulse 70 09/02/2024 9:22 AM EDT Temperature - - Respiratory Rate - - Oxygen Saturation 93% 09/02/2024 9:22 AM EDT Inhaled Oxygen Concentration - - Weight 91.9 kg (202 lb 9.6 oz) 09/02/2024 9:22 A M EDT Height 179.1 cm (5' 10.5 ) 09/02/2024 9:22 AM ED T Body Mass Index 28.66 09/02/2024 9:22 AM EDT Plan of Treatment Upcoming Encounters Date Type Department Care Team (Late st Contact Info) Description 03/28/2025 9:00 AM EST Office Visit [facility] [place] [facility] [address] [place] [phone] Dennis Irizarry DO [address] [place] [address] Health Maintenance Due Date Last Done Comments CT Colonography 1950 Colonoscopy 1950 FIT 1950 FOBT 1950 Sigmoidoscopy 1950 Medicare Annual Wellness (AWV) 09/03/2023 09/02/2022 , 08/27/2021 Influenza Vaccine (#1) 2025 Colorectal Cancer Screening 09/27/2026 FIT-DNA 09/27/2026 09/28/2023, 1205/2019, 04/21/2020 Pneumococcal Vaccine: 65+ Years Completed 9, 04/19/2018 Procedures Procedure Name Priority Date/Time Associated Diagnosis Comments CA ECHO DOPPLER COMPLETE 12/07/2024 6:23 PM EDT ALL PRO BNP Routine 11/25/2024 8:12 AM EDT [facility] CMP (CMP) (FOR REMOTE [facility] USE) Routine 11/25/2024 8:12 AM EDT ALL CBC WITH AUTO DIFF Routine 11/25/2024 8:12 AM EDT ITP 11/14/2024 8:56 AM EDT ITP 10/16/2024 7:15 AM EDT LAB COLOGUARD COLON CANCER SCREEN Routine 09/28/2023 4:00 PM EDT Colon cancer screening from Last 3 Months or Most Recently Relevant to Health Maintenance Results * CA ECHO DOPPLER COMPLETE (12/07/2024 6:23 PM EDT) Anatomical Region Laterality Modality Other 12/07/2024 6:23 PM EDT Narrative 12/07/2024 6:25 [place] [address] Cardiology Report Signed Patient: EMMA JAMES MR#: [id number] : 1950 Acct:[id number] Age/Sex: 74 / M ADM Date: 12/06/24 Loc: CARD Attending Dr: Laina Abad M.D. Ordering Physician: Laina Abad M.D. Date of Service: 12/06/24 Procedure(s): CA echo doppler complete Accession Number(s): [id number] cc: Laina Abad M.D.; DENNIS IRIZARRY Patient Name: EMMA JAMES MR#: [id number] : 1950 Exam Date: 12/06/2024 Ordering Doctor: DR LAINA ABAD M.D. ECHOCARDIOGRAM REPORT PROCEDURE: CA ECHO DOPPLER COMPLETE INDICATIONS: CHF, YAMILA, BARRIENTOS COMPARISON: None. DESCRIPTION: COMPLETE ECHOCARDIOGRAM Real-time transthoracic echocardiography with 2D, M-mode, spectral and color flow Doppler performed. QUALITY: Technical quality was good. LEFT VENTRICLE: Normal chamber size. Mild concentric left ventricular hypertrophy. Global left ventricular systolic function is normal without wall motion abnormalities. Calculated left ventricular ejection fraction is 67% LV EF: 67% DIASTOLIC: Normal diastolic function. ATRIAL SEPTUM: Appears intact LEFT ATRIUM: Mild dilatation. RIGHT ATRIUM: Moderate dilatation. RIGHT VENTRICLE: Normal chamber size. Normal right ventricular systolic function. TRICUSPID VALVE: Normal mobility and thickness. No stenosis with mild regurgitation. No evidence of pulmonary hypertension.RVSP 29mmHg. MITRAL VALVE: Normal mobility and thickness. No evidence of mitral valve stenosis. There is no mitral annular calcification. Trivial mitral regurgitation. AORTIC VALVE: Normal trileaflet appearance. Mildly calcified aortic valve. Normal leaflet mobility. No evidence of aortic valve stenosis. No aortic regurgitation. AORTIC ROOT: Normal diameter and appearance. PULMONIC VALVE: Normal thickness and mobility. No stenosis. Trivial regurgitation. PERICARDIUM: No evidence of pericardial effusion. IVC: Collapes with inspirations. Mild dilatation measuring 2.3cm. PLEURA: CONCLUSION: Mild concentric left ventricular hypertrophy Normal left ventricle systolic function without wall motion abnormalities, ejection fraction 67% Normal left ventricular diastolic function Normal right ventricular size and systolic function Normal right-sided pressures Mildly dilated left atrium and moderately dilated right atrium No significant valvular abnormalities Adult Echocardiography Procedure Report Left Ventricle LVEDD (3.7 - 5.6 cm): 5.10 cm LVESD (2.2 - 4.0 cm): 3.81 cm LVIVS thickness (0.6 - 1.2 cm): 1.19 cm LVPW thickness (0.5 - 1.0 cm): 1.20 cm e': 0.15 m/s E - e': 4.11 LVOT Max Gradient: 2.92 mm[Hg] LVOT Area (cm2): 0.85 m/s Peak Velocity (LVOT): 0.85 m/s Mean Velocity (LVOT): 0.60 m/s LVOT Diameter 2.41 cm Left Ventricular Ejection Fraction: 66.55 % Left Atrium LA Volume Index (2D A2C): 40.60 ml/m2 Left Atrium Systolic Dimension: 4.50 cm Mitral Valve MV E to A Ratio: 1.77 MV Max Gradient: MV Mean Gradient: Mitral Valve A-Wave Peak Velocity: 0.35 m/s Mitral Valve E-Wave Peak Velocity: 0.62 m/s Cardiovascular Orifice Area: Right Ventricle RV Internal Diastolic Dimension: 3.88 cm Aorta AO Root Diam: 3.52 cm Ascending Ao Diam: 2.98 cm Aortic Valve AoV Area (Peak Ed): 2.94 cm2, 2.94 cm2 AoV Area (VTI): 2.99 cm2, 2.99 cm2 Deceleration Lagrange: Pressure Half-Time: Peak Velocity(Antegrade Flow): 1.33 m/s Peak Gradient(Antegrade Flow): 7.03 mm[Hg] Mean Velocity(Antegrade Flow): 0.89 m/s Mean Gradient(Antegrade Flow): 3.69 mm[Hg] Velocity Time Integral: 29.14 cm Tricuspid Valve Peak Velocity (Regurgitant Flow): 1.82 m/s, 2.00 m/s, 2.26 m/s Peak Velocity: Pulmonic Valve Mean Gradient: Mean Velocity: Peak Velocity: 1.17 m/s Peak Gradient: 5.52 mm[Hg], 5.52 mm[Hg] Right Atrium Right Atrium Systolic Pressure: Dictated by: Thompson Chowdary MD on 12/07/2024 at 18:17 Approved by: Thompson Chowdary MD on 12/07/2024 at 18:23 Dictated By: Thompson Chowdary M.D. Signed By: 12/07/241824 DD/ 22 TD/TT: Automobile Parts Assembler: Procedure Note Radiology, Radiologist, MD - 12/07/2024 [place] [address] Cardiology Report Signed Patient: EMMA JAMES MMR#: [id number] : 1950Acct:[id number] Age/Sex: 74 / MADM Date: 12/06/24 Loc: CARD Attending Dr: Laina Abad M.D. Ordering Physician: Laina Abad M.D. Date of Service: 12/06/24 Procedure(s): CA echo doppler complete Accession Number(s): [id number] cc: Laina Abad M.D.; DENNIS IRIZARRY Patient Name: EMMA JAMES MR#: [id number] : 1950 Exam Date: 12/06/2024 Ordering Doctor: DR LAINA ABAD M.D. ECHOCARDIOGRAM REPORT PROCEDURE: CA ECHO DOPPLER COMPLETE INDICATIONS: CHF, YAMILA, BARRIENTOS COMPARISON: None. DESCRIPTION: COMPLETE ECHOCARDIOGRAM Real-time transthoracic echocardiography with 2D, M-mode, spectral and color flow Dopplerperformed. QUALITY: Technical quality was good. LEFT VENTRICLE: Normal chamber size. Mild concentric left ventricular hypertrophy. Global left ventricular systolic function is normal withoutwall motion abnormalities. Calculated left ventricular ejection fraction is 67% LV EF: 67% DIASTOLIC: Normal diastolic function. ATRIAL SEPTUM: Appears intact LEFT ATRIUM: Mild dilatation. RIGHT ATRIUM: Moderate dilatation. RIGHT VENTRICLE: Normal chamber size. Normal right ventricularsystolic function. TRICUSPID VALVE: Normal mobility and thickness. No stenosis with mild regurgitation. No evidence of pulmonary hypertension.RVSP 29mmHg. MITRAL VALVE: Normal mobility and thickness. No evidence of mitralvalve stenosis. There is no mitral annular calcification. Trivial mitral regurgitation. AORTIC VALVE: Normal trileaflet appearance. Mildly calcified aorticvalve. Normal leaflet mobility. No evidence of aortic valve stenosis. No aortic regurgitation. AORTIC ROOT: Normal diameter and appearance. PULMONIC VALVE: Normal thickness and mobility. No stenosis. Trivial regurgitation. PERICARDIUM: No evidence of pericardial effusion. IVC: Collapes with inspirations. Mild dilatation measuring 2.3cm. PLEURA: CONCLUSION: Mild concentric left ventricular hypertrophy Normal left ventricle systolic function without wall motion abnormalities, ejection fraction 67% Normal left ventricular diastolic function Normal right ventricular size and systolic function Normal right-sided pressures Mildly dilated left atrium and moderately dilated right atrium No significant valvular abnormalities Adult Echocardiography Procedure Report Left Ventricle LVEDD (3.7 - 5.6 cm): 5.10 cm LVESD (2.2 - 4.0 cm): 3.81 cm LVIVS thickness (0.6 - 1.2 cm): 1.19 cm LVPW thickness (0.5 - 1.0 cm): 1.20 cm e': 0.15 m/s E - e': 4.11 LVOT Max Gradient: 2.92 mm[Hg] LVOT Area (cm2): 0.85 m/s Peak Velocity (LVOT): 0.85 m/s Mean Velocity (LVOT): 0.60 m/s LVOT Diameter 2.41 cm Left Ventricular Ejection Fraction: 66.55 % Left Atrium LA Volume Index (2D A2C): 40.60 ml/m2 Left Atrium Systolic Dimension: 4.50 cm Mitral Valve MV E to A Ratio: 1.77 MV Max Gradient: MV Mean Gradient: Mitral Valve A-Wave Peak Velocity: 0.35 m/s Mitral Valve E-Wave Peak Velocity: 0.62 m/s Cardiovascular Orifice Area: Right Ventricle RV Internal Diastolic Dimension: 3.88 cm Aorta AO Root Diam: 3.52 cm Ascending Ao Diam: 2.98 cm Aortic Valve AoV Area (Peak Ed): 2.94 cm2, 2.94 cm2 AoV Area (VTI): 2.99 cm2, 2.99 cm2 Deceleration Lagrange: Pressure Half-Time: Peak Velocity(Antegrade Flow): 1.33 m/s Peak Gradient(Antegrade Flow): 7.03 mm[Hg] Mean Velocity(Antegrade Flow): 0.89 m/s Mean Gradient(Antegrade Flow): 3.69 mm[Hg] Velocity Time Integral: 29.14 cm Tricuspid Valve Peak Velocity (Regurgitant Flow): 1.82 m/s, 2.00 m/s, 2.26 m/s Peak Velocity: Pulmonic Valve Mean Gradient: Mean Velocity: Peak Velocity: 1.17 m/s Peak Gradient: 5.52 mm[Hg], 5.52 mm[Hg] Right Atrium Right Atrium Systolic Pressure: Dictated by: Thompson Chowdary MD on 12/07/2024 at 18:17 Approved by: Thompson Chowdary MD on 12/07/2024 at 18:23 Dictated By: Thompson Chowdary M.D. Signed By:12/07/241824 DD/ 22 TD/TT: Automobile Parts Assembler: us Generic External Data Provider [facility] Final Result * (ABNORMAL) [facility] CMP (CMP) (FOR REMOTE [facility] USE) (11/25/2024 8:12 AM EDT) SODIUM 143 136 - 145 mmol/L [facility]H POTASSIUM 4.4 3.5 - 5.1 mmol/L [facility] CHLORIDE 107 98 - 107 mmol/L [facility]H CARBON DIOXIDE 28.9 21.0 - 32.0 mmol/L [facility]H ANION GAP 11.5 TBH GLUCOSE 136(H) 74 - 106 mg/dL [facility]H BLOOD UREA NITROGEN 16.0 7.0 - 18.0 mg/dL [facility] CREATININE 0.99 0.70 - 1.30 mg/dL TBH TBH EGFR-AF BRITISH >60 >=60 mL/min/1. 73m 2 TBH TBH EGFR-NON AF BRITISH >60 >=60 mL/min/1. 73m 2 TBH BUN CREATININE RATIO 16.2 TBH CALCIUM 8.6 8.5 - 10.1 mg/dL TBH BILIRUBIN TOTAL 0.4 0.2 - 1.0 mg/dL TBH ASPARTATE AMINO TRANSFERASE 20 15 - 37 U/L TBH ALANINE AMINOTRANSFERASE 23 16 - 63 U/L TBH ALKALINE PHOSPHATASE 92 46 - 116 U/L TB[facility] TOTAL PROTEIN 6.7 6.4 - 8.2 g/dL TBH ALBUMIN LEVEL 3.5 3.4 - 5.0 g/dL TBH GLOBULIN 3.2 g/dL TBH ALBUMIN GLOBULIN RATIO 1.1 TBH 11/25/2024 8:12 AM EDT 11/25/2024 8:17 AM EDT Narrative [facility] - 11/25/2024 9:03 AM EDT Generic External Data Provider [facility] F inal Result [facility] * ALL PRO BNP (11/25/2024 8:12 AM EDT) NT PRO B TYPE NATRIURETIC PEPT 103.0 <=1,800.0 pg/mL TB 11/25/2024 8:12 AM EDT 11/25/2024 8:17 AM EDT Narrative [facility] - 11/25/2024 9:03 AM EDT Generic External Data Provider [facility] F inal Result Performing Organization Address [facility] de Phone Number [facility] * (ABNORMAL) ALL CBC WITH AUTO DIFF (11/25/2024 8:12 AM EDT) TB WBC 5.4 4.0 - 11.0 10 3/uL TBH TB RBC 5.12 4.70 - 6.10 10 6/uL TBH TBH HGB 12.4(L) 14.0 - 18.0 g/dL TB TB HCT 40.3(L) 42.0 - 54.0 % TBH TB MCV 78.7(L) 80.0 - 94.0 fL TBH TBH MCH 24.2(L) 25.9 - 34.0 pg TBH TB MCHC 30.8 29.9 - 35.2 g/dL TB TB RDW 15.1(H) 11.0 - 15.0 % TBH TBH PLT 243 150 - 450 10 3/uL TBH TBH MPV 10.1 9.5 - 13.5 fL TBH NEUTROPHILS PERCENT AUTO 69.8 43.0 - 75.0 % TBH LYMPHOCYTES PERCENT AUTO 17.3(L) 20.5 - 60.0 % TBH MONOCYTES PERCENT AUTO 7.9 1.7 - 12.0 % TBH TBH EO % 3.5 0.9 - 7.0 % TBH BASOPHILS PERCENT AUTO 0.9 0.2 - 2.0 % TBH IMMATURE GRANULOCYTES PCT AUTO 0.6(H) 0.0 - 0.5 % TBH NEUTROPHILS ABSOLUTE AUTO 3.8 1.4 - 6.5 10 3/uL TBH LYMPHOCYTES ABSOLUTE AUTO 0.9(L) 1.2 - 3.8 10 3/uL TBH MONOCYTES ABSOLUTE AUTO 0.4 0.3 - 0.8 10 3/uL TBH TBH EO # 0.2 0.0 - 0.7 10 3/uL TBH BASOPHILS ABSOLUTE AUTO 0.1 0.0 - 0.1 10 3/uL TBH IMMATURE GRANULOCYTES ABS AUTO 0.03 0.00 - 0.03 10 3/uL TBH 11/25/2024 8:12 AM EDT 11/25/2024 8:17 AM EDT Narrative [facility] - 11/25/2024 8:38 AM EDT Generic External Data Provider [facility] F [facility]al Result [facility] * ITP (11/14/2024 8:56 AM EDT) Only the most recent of2 resultswithin the time period is included. Anatomical Region Laterality Modality Other 11/14/2024 8:56 AM EDT Narrative 11/14/2024 3:34 [place] [address] Cardiac Rehab Report Signed Patient: EMMA JAMES MR#: [id number] : 1950 Acct:[id number] Age/Sex: 74 / M ADM Date: 11/14/24 Loc: CR Attending Dr: ARMIDA GUTIERREZ Ordering Physician: Steve Albright D.O. Date of Service: 11/14/24 Procedure(s): ITP Accession Number(s): [id number] cc: [facility] Test Date: 2024-11-14 Pat Name: EMMA JAMES Department: Room: - Gender: Male Torpedo Worker: : 1950 Requested By: Steve Albright Order Number: [id number] Reading MD: Steve Albright Interpretive Statements Though [...] Steve Albright D.O. Signed By: 11/14/24 1534 11/14/24 1534 DD/ 0856 TD/TT: Automobile Parts Assembler: Procedure Note Radiology, Radiologist, - 11/14/2024 [place] [address] Cardiac Rehab Report Signed Patient: EMMA JAMES MMR#: [id number] : 1950Acct:[id number] Age/Sex: 74 / MADM Date: 11/14/24 Loc: CR Attending Dr: ARMIDA GUTIERREZ Ordering Physician: Steve Albright D.O. Date of Service: 11/14/24 Procedure(s): ITP Accession Number(s): [id number] cc: [facility] Test Date: 2024-11-14 Pat Name: EMMA JAMES Department: Room: - Gender: Male Torpedo Worker: : 1950 Requested By: Steve Albright Order Number: [id number] Rob MD: Steve Albright Interpretive Statements Though [...] Albright Dictated By: Steve Albright D.O. Signed By:11/14/244 11/14/24 1534 DD/ TD/TT: Automobile Parts Assembler: us Generic External Data Provider [facility] Final Result * Cologuard?? colon cancer screening (09/28/2023 4:00 PM EDT) NONINV COLON CA DNA+OCC BLD SCRN STL-IMP Negative Negative 10/06/2023 9:50 AM EDT [facility] (CLIA #:[id number]) Comment: NEGATIVE TEST RESULT. A negative Cologuard result indicates a low likelihood that a colorectal cancer (CRC) or advanced adenoma (adenomatous polyps with more advanced pre-malignant features) is present. The chance that a person with a negative Cologuard test has a colorectal cancer is less than 1 in 1500 (negative predictive value >99.9%) or has an advanced adenoma is less than 5.3% (negative predictive value 94.7%). These data are based on a prospective cross-sectional study of 10,000 individuals at average risk for colorectal cancer who were screened with both Cologuard and colonoscopy. (Nahun Garza et al, N Engl J Med 2014;370(14):2373-2823) The normal value (reference range) for this assay is negative. COLOGUARD RE-SCREENING RECOMMENDATION: Periodic colorectal cancer screening is an important part of preventive healthcare for asymptomatic individuals at average risk for colorectal cancer. Following a negative Cologuard result, the [place] [employer] Society and U.S. Multi-Society Task Force screening guidelines recommend a Cologuard re-screening interval of 3 years. References: [place] [employer] Guideline for Colorectal Cancer Screening: https://www.cancer.org/cancer/qmsnd-zyfuoo-gsqfot/bgpeuclsr-obgkfynxz-xywciqg/ac s-rec ommendations.html.; Hebert DK, Khushboo CR, Misa DanielsK, Colorectal Cancer Screening: Recommendations for Physicians and Patients from the U.S. Multi-Society Task Force on Colorectal Cancer Screening , Am J Gastroenterology 2017; 112:0703-9703. TEST DESCRIPTION: Composite algorithmic analysis of stool DNA-biomarkers with hemoglobin immunoassay. Quantitative values of individual biomarkers are not reportable and are not associated with individual biomarker result reference ranges. Cologuard is intended for colorectal cancer screening of adults of either sex, 45 years or older, who are at average-risk for colorectal cancer (CRC). Cologuard has been approved for use by the U.S. FDA. The performance of Cologuard was established in a cross sectional study of average-risk adults aged 50-84. Cologuard performance in patients ages 45 to 49 years was estimated by sub-group analysis of near-age groups. Colonoscopies performed for a positive result may find as the most clinically significant lesion: colorectal cancer [4.0%], advanced adenoma (including sessile serrated polyps greater than or equal to 1cm diameter) [20%] or non- advanced adenoma [31%]; or no colorectal neoplasia [45%]. These estimates are derived from a prospective cross-sectional screening study of 10,000 individuals at average risk for colorectal cancer who were screened with both Cologuard and colonoscopy. (Nahun Field al, N Engl J Med 2014;370(14):7452-7106.) Cologuard may produce a false negative or false positive result (no colorectal cancer or precancerous polyp present at colonoscopy follow up). A negative Cologuard test result does not guarantee the absence of CRC or advanced adenoma (pre-cancer). The current Cologuard screening interval is every 3 years. ([place] [employer] and U.S. Multi-Society Task Force). Cologuard performance data in a 10,000 patient pivotal study using colonoscopy as the reference method can be accessed at the following location: www.[employer]/results. Additional description of the Cologuard test process, warnings and precautions can be found at www.BMEYEogQuadROIrd.com. Stool specimen (specimen) 09/28/2023 4:00 PM EDT 09/30/2023 8:51 AM EDT Diamond Carter NP LAB MOLECULAR DIAGNOSTICS OR DERABLES Final Result [facility] (CLIA #:[id number]) [place] [address], [place] [phone] from Last 3 Months or Most Recently Relevant to Health Maintenance Insurance MEDICARE [facility] Advance Directives * DNR (Latest Code Status on File) Date Activated Date Inactivated Comments 09/15/2023 11:41 AM Care Teams Gas Desulfurizer Relationship Specialty Start Date End Date Dennis Irizarry DO [address] [place] [address] PCP - General Internal Medicine 09/27/22 Dennis Irizarry DO [address] [place] [address] PCP - ACO Reach 10/13/22
--- OUTSIDE RECORDS SUMMARY | 2024-12-24 10:52 | XMS_ITS | Encounter Summary ---
Author Organization [facility] Address [address] [place] [address] Care Team Providers Care Kier Drier Name Role Phone Sacha Irizarry DO Primary Care Provider Sacah Irizarry DO Unavailable [phone] Bri Alva LPN Unavailable [phone] Amber Lopez RN Unavailable [phone] Encounter Details Date Type Department Care Team (Late st Contact Info) Description 07/23/2024 Orders Only [facility] [address] [facility] [address] [place] [address] Sacha Irizarry DO [address] [facility] [address] [place] [address] Bilateral leg edema; SOB (shortness [...] [address] [place] [address] Sacha Irizarry DO [address] [place] [address] documented as of this encounter Procedures Procedure Name Priority Date/Time Associated Diagnosis Comments TRANSTHORACIC ECHO (TTE) COMPLETE Routine 07/23/2024 9:55 AM EST Bilateral leg edema SOB (shortness of breath) Agatston coronary artery calcium score less than 100 Chest pain, unspecified type documented in this encounter Results * Transthoracic echo (TTE) complete (07/23/2024 9:55 AM EST) Anatomical Region Laterality Modality Heart Ultrasound us Sacha Irizarry DO CV ECHO PROCEDURES Final Res ult documented in this encounter Visit Diagnoses Diagnosis Bilateral leg edema Edema SOB (shortness of breath) Shortness of breath Agatston coronary artery calcium score less than 100 Chest pain, unspecified type documented in this encounter Care Teams Kier Drier Relationship Specialty Start Date End Date Sacha Irizarry DO [address] [place] [address] PCP - General Internal Medicine 09/27/22 Sacha Irizarry DO [address] [place] [address] PCP - ACO Reach 10/13/22 Bri Alva LPN [address] [place] [address] Licensed Practical Nurse Family Medicine 08/14/2408/15 Amber Lopez, B[place] [address] [place] [phone] Registered Nurse Family Medicine 08/15/24 08/15/24 documented as of this encounter
--- OUTSIDE RECORDS SUMMARY | 2024-12-24 10:53 | XMS_ITS | Encounter Summary ---
Author Organization [facility] Address [address] [place] [address] Care Team Providers Care Director Of Reimbursement Name Role Phone Sacha Irizarry MD Primary Care Provider + [phone] Encounter Details Date Type Department Care Team (Late st Contact Info) Description 12/09/2024 Orders Only [facility] at [facility] [address] [place] [address] Provider, MD Denisa [address] [place] [address] Social History Tobacco Use Types Packs/Day Years Used Date Smoking Tobacco: Never Cigarettes Qu it: 05/22/1996 Cigars Passive Smoke Exposure: Yes Smokeless Tobacco: Never Comments:An occasional cugar Alcohol Use Standard Drinks/Week Comments Yes 3 (1 standard drink = 0.6 oz pur e alcohol) Social [facility] Utilities Answer Date Recorded In the past 12 months has [employer] electric, gas, oil, or water company threatened to shut off services in your [...] any time in the past 12 m [facility], were you homeless or living in a snf (including now)? No 08/14/2024 Hunger Vital Sign [...] Description 01/15/2025 10:30 AM EDT Office Visit [facility] Heart [facility] [address] [place] [address] Laina Mcqueen MD [address] [facility] [place] [address] documented as of this encounter Procedures Procedure Name Priority Date/Time Associated Diagnosis Comments COMPLETE TRANSTHORACIC ECHO (TTE) W/WO IMAGING AGENT, STRAIN, 3D, BUBBLE STUDY Routine 12/06/2024 10:23 AM EDT documented in this encounter Results * Complete Echo (TTE) w/wo Imaging Agent, Strain, 3D, Bubble Study (12/06/2024 10:23 AM EDT) Anatomical Region Laterality Modality Ultrasound us Historical Provider MD PILLAI ECHO PROCEDURES Final Result documented in this encounter Visit Diagnoses Not on filedocumented in this encounter Care Teams Director Of Reimbursement Relationship Specialty Start Date End Date Sacha Irizarry MD [address] [facility] [address] [place] [id number] PCP - General Internal Medicine 07/29/24 documented as of this encounter
--- OUTSIDE RECORDS SUMMARY | 2024-12-24 10:53 | XMS_ITS | Clinical Summary ---
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 30 tablet 5 Active methocarbamol (Robaxin) 500 mg tabletIndicati ons:Muscle ache Take 1 tablet (500 mg) by mouth if needed in the morning, at noon, and at bedtime for muscle spasms for up to 10 days. 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 90 tablet 3 5 09/19/19 26 Active magnesium oxide 500 mg magnesium tablet Take 1 tablet by mouth in the morning. 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 30 tablet 5 12/24/19 25 Discontin ued(Reord er) Active Problems Problem Noted Date Diagnosed Date Abnormal ECG 11/02/2024 Overview (11/21/2024): RBBB/LAHB S/P CABG x 3 11/02/2024 Overview (11/21/2024): [facility], SVG TO 2ND OM, SVG TO DISTAL RIGHT CORONARY ARTERY WITH ENDOSCOPIC PROCUREMENT OF SAPHENOUS VEIN GRAFT (Left: Leg Lower), Postoperative anemia due to acute blood loss Atelectasis 08/17/2024 Dyspnea 08/14/2024 Assessment & Plan (08/14/2024 11:06 AM EDT): Continuous pulse ox Coronary artery disease invo lving telida coronary artery of telida heart 08/14/2024 Assessment & Plan (08/14/2024 2:18 PM EDT): CT surgery consulted by cardiology, will evaluate patient Will start heparin gtt 4 hours after wrist band removed post cath Paroxysmal atrial fibrillation 08/14/2024 Assessment & Plan (08/14/2024 2:18 PM EDT): Will start heparin gtt 4 hours after wrist band removed post cath Multi-vessel coronary artery stenosis 08/14/2024 Abnormal stress test 08/07/2024 Assessment & Plan (08/14/2024 11:06 AM EDT): Patient underwent heart cath and found to have multi-vessel heart disease Cardiology consulted Cervical spondylosis without myelopathy 09/14/19 24 Hypercholesteremia 09/14/2023 Assessment & Plan (08/14/2024 2:18 PM EDT): Admit to step down Ambulate as tolerated Regular cardiac diet Daily bmp and cbc to monitor kidney function, electrolytes, hgb and wbc Case will be seen and discussed with attending physician Obesity 09/14/2023 Agatston coronary artery calcium score less than 100 07/20/2017 Chronic neck pain 03/19/2017 Gastroesophageal reflux disease without esophagi tis 03/19/2017 Assessment & Plan (08/14/2024 11:06 AM EDT): Continue Protonix in place of omeprazole Polyarthritis of multiple sites 03/19/2017 Encounters Date Type Department Care Team Description 12/23/[address] [address] Polina Dominguez MA 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 12/13/2024 Telephone [place] [address] [place] [facility] [place] [address] Polina Dominguez MA 12/09/2024 Orders Only [facility] [address] [place] [address] Provider, MD Denisa 11/21/2024 9:15 AM EDT Office Visit [facility] [address] [place] [facility] [place] [address] Laina Mcqueen MD Acute on chronic systolic heart failure (CMS/HCC) (Primary Dx); Leg swelling; BARRIENTOS (dyspnea on exertion) 11/21/2024 Orders Only [facility] [address] [place] [facility] [place] [address] Polina Dominguez MA BARRIENTOS (dyspnea on exertion) (Primary Dx) 11/08/2024 Telephone [facility] [address] [place] [facility] [place] [address] Helga Ron MA 09/25/2024 Telephone [facility] [address] [place] [facility] [place] [address] Cecily Gaston MA 09/23/2024 Refill [facility] [address] [place] [facility] [place] [address] Cecily Gaston MA 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 from Last 3 Months Family History Medical History Relation Name Comments Diabetes Brother Coronary artery disease Father Merril Heart failure Father Merril Heart failure Mother Ada Diabetes Sister Relation Name Status Comments Brother Alive Father Merril Mother Ada Sister Alive Social History Tobacco Use Types Packs/Day Years Used Date Smoking Tobacco: Never Cigarettes Qu it: 05/22/1996 Cigars Passive Smoke Exposure: Yes Smokeless Tobacco: Never Comments:An occasional cugar Alcohol Use Standard Drinks/Week Comments Yes 3 (1 standard drink = 0.6 oz pur e alcohol) Social C Utilities Answer Date Recorded In the past 12 months has [employer], gas, oil, or water [employer] threatened to shut off services in your [...] any time in the past 12 m [facility], were you homeless or living in a long term (including now)? No 08/14/2024 Hunger Vital Sign [...] Sign Reading Time Taken Comments Blood Pressure 97/65 11/21/2024 9:22 AM EDT Pulse 64 11/21/2024 9:22 AM EDT Temperature 36.9 C (98.4 F) 08/21/2024 8:00 AM EDT Respiratory Rate 20 08/21/2024 8:00 AM EDT Oxygen Saturation 97% 11/21/2024 9:22 AM EDT Inhaled Oxygen Concentration - - Weight 94.8 kg (209 lb) 11/21/2024 9:22 AM EDT Height 180.3 cm (5' 11 ) 11/21/2024 9:22 AM EDT Body Mass Index 29.15 11/21/2024 9:22 AM EDT Plan of Treatment Upcoming Encounters Date Type Department Care Team (Late st Contact Info) Description 01/15/2025 10:30 AM EDT Office Visit [facility] Heart at [facility] [address] [place] [address] Laina Mcqueen MD [address] [facility] [place] [address] Health Maintenance Due Date Last Done Comments CT Colonography 1950 Colonoscopy 1950 FOBT 1950 Medicare Annual Wellness (AWV) 1950 Sigmoidoscopy 1950 Adult Tetanus 02/23/2019 02/23/2009 Zoster Vaccines (2 of 2) 05/25/2020 020, 07/14/2010 COVID-19 Vaccine (2023-2 5 season) 2024 FIT 09/27/2024 09/28/2023 Influenza Vaccine (#1) 2025 Depression Screening 08/29/2025 08/29/2024 Fall Risk Screening 08/29/2025 08/29/2024 Colorectal Cancer Screening 09/27/2026 FIT-DNA 09/27/2026 09/28/2023 Pneumococcal Vaccine: 50+ Years Completed 03/26/2019, 04/19/2018 HIB Vaccines Aged Out No longer eligi ble based on patient's age to complete this topic HPV Vaccines Aged Out No longer eligi ble based on patient's age to complete this topic IPV Vaccines Aged Out No longer eligi ble based on patient's age to complete this topic Meningococcal B Vaccine Aged Out No l onger eligible based on patient's age to complete this topic Meningococcal Vaccine Aged Out No gareth margoth eligible based on patient's age to complete this topic Rotavirus Vaccines Aged Out No longer eligible based on patient's age to complete this topic Procedures Procedure Name Priority Date/Time Associated Diagnosis Comments COMPLETE TRANSTHORACIC ECHO (TTE) W/WO IMAGING AGENT, STRAIN, 3D, BUBBLE STUDY Routine 12/06/2024 10:23 AM EDT ECG 12 LEAD UNIT PERFORMED Routine 11/21/2024 9:55 AM EDT BARRIENTOS (dyspnea on exertion) from Last 3 Months Results * Complete Echo (TTE) w/wo Imaging Agent, Strain, 3D, Bubble Study (12/06/2024 10:23 AM EDT) Anatomical Region Laterality Modality Ultrasound Historical Provider CV ECHO PROCEDURES Final Result * ECG 12 lead unit performed (11/21/2024 9:55 AM EDT) Laina Mcqueen MD ECG ORDERABLES Final Result from Last 3 Months Insurance MEDICARE Member Subscriber Plan / Payer (Ef fective 2024-Present) Name:Lang James Member ID:[id number] Relation to Subscriber:Self Name:Lang James Subscriber ID:[id number] Payer ID:[id number] Group ID:Not on file Type:Medicare Address: [facility] [place] [id number] [facility] [place] [phone] Advance Directives * Full Code (Latest Code Status on File) Date Activated Date Inactivated Comments 08/14/2024 9:56 AM 08/21/2024 6:28 PM Care Teams Validation Software Facilitator Relationship Specialty Start Date End Date Sacha Irizarry MD [address] [place] [address] PCP - General Internal Medicine 07/29/24
--- OUTSIDE RECORDS SUMMARY | 2024-12-24 10:53 | XMS_ITS | Clinical Summary ---
Author Organization [facility] Address [address] [place], [place] [address] Care Team Providers Care Refinery Technician Name Role Phone Lenard Penaloza Primary Care Provider Allergies Active Allergy Reactions Criticality Noted Date Comments processed poultry [Other] GI Upset 04/13/2010 PROCESSED MEATS Medications omeprazole (PRILOSEC) 20 mg ORAL capsule Take one(1) capsule daily. 0 04/13/2010 Active multivitamin (DAILY MULTIPLE) tablet Take 1 tablet by mouth once daily. 0 03/28/2012 Active traMADol (ULTRAM) 50 mg tablet Take 50 mg by mouth once daily. Active fenofibrate (LOFIBRA) 134 mg capsule Take 134 mg by mouth once daily. 3 01/21/2017 Active latanoprost (XALATAN) 0.005 % ophthalmic solution daily at bedtime. 01/12/2017 Active acetaminophen (TYLENOL) 325 mg tablet Take 2 tablets by mouth every 4 hours as needed. for pain. 60 tablet 03/13/2017 Active DULoxetine (CYMBALTA) 30 mg capsule Take 1 capsule by mouth once daily. 30 capsule 03/13/2017 Active Active Problems Problem Noted Date Diagnosed Date Osteoarthritis 03/19/2017 Polyarthritis of multiple sites 03/19/2017 Chronic neck pain 03/19/2017 Gastroesophageal reflux disease without esophagi tis 03/19/2017 Family History Medical History Relation Comments Diabetes Brother Heart Failure Mother Diabetes Sister Relation Status Comments Brother Mother Sister Social History Tobacco Use Types Packs/Day Years Used Date Smoking Tobacco: Light Smoker Cigars Comments:SOMETIMES Sex and Gender Information Value Date Recorded Sex Assigned at Not on file Legal Sex Male 10:44 AM EST Gender Identity Not on file Sexual Orientation Not on file Last Filed Vital Signs Vital Sign Reading Time Taken Comments Blood Pressure 119/80 03/13/2017 2:14 PM EDT Pulse 71 03/13/2017 2:14 PM EDT Temperature 36.4 C (97.6 F) 03/13/2017 2:14 PM EDT Respiratory Rate - - Oxygen Saturation - - Inhaled Oxygen Concentration - - Weight 93.3 kg (205 lb 9.6 oz) 03/13/2017 2:14 P M EDT Height 179.1 cm (5' 10.5 ) 03/13/2017 2:14 PM ED T Body Mass Index 29.08 03/13/2017 2:14 PM EDT Plan of Treatment Health Maintenance Due Date Last Done Comments Anxiety Screening 10/25/1967 Depression Screening 10/25/1967 Hepatitis C Screening 10/25/1967 DTaP,Tdap,Td Vaccine (1 - Tdap) [address] Colonography 1994 Cologuard (FIT-DNA) 1994 Colonoscopy 1994 Colorectal Cancer Screening 1994 Fecal Occult Blood 1994 Sigmoidoscopy 1994 Pneumococcal Vaccine: 50+ (1 of 1 - PCV) 10/25/1999 Shingrix Vaccine (1 of 2) 10/25/1999 Diabetes Screening 03/13/2020 03/13/2017 Advance Directive Discussion 05/22/2024 RSV Vaccine (1 - 1-dose 75+ series) 2024 Influenza Vaccine (#1) 2025 Procedures Procedure Name Priority Date/Time Associated Diagnosis Comments COMPREHENSIVE METABOLIC PANEL Routine 03/13/2017 4:14 PM EDT Osteoarthritis, unspecified osteoarthritis type, unspecified site from Last 3 Months or Most Recently Relevant to Health Maintenance Results * (ABNORMAL) COMP METABOLIC PANEL (03/13/2017 4:14 PM EDT) Protein, Total 7.1 6.3 - 8.0 g/dL 03/13/2017 7:37 PM EDT [facility] Albumin 4.5 3.9 - 4.9 g/dL 03/13/2017 7:37 PM [facility] Calcium 10.0 8.5 - 10.2 mg/dL 03/13/2017 7:37 PM [facility] Bilirubin, Total 0.4 0.2 - 1.3 mg/dL 03/13/2017 7:37 PM [facility] Alkaline Phosphatase 52 36 - 108 U/L 03/13/2017 7:37 PM [facility] AST 27 14 - 40 U/L 03/13/2017 7:37 PM [facility] Glucose 84 74 - 99 mg/dL 03/13/2017 7:37 PM [facility] Comment: The [place] Diabetes Association (ADA) provides guidance for cutoff values for fasting glucose and random glucose. The ADA defines fasting as no caloric intake for at least 8 hours. Fasting plasma glucose results between 100 to 125 mg/dL indicate increased risk for diabetes (prediabetes). Fasting plasma glucose results greater than or equal to 126 mg/dL meet the criteria for diagnosis of diabetes. In the absence of unequivocal hyperglycemia, results should be confirmed by repeat testing. In a patient with classic symptoms of hyperglycemia or hyperglycemic crisis, random plasma glucose results greater than or equal to 200 mg/dL meet the criteria for diagnosis of diabetes. Reference: Standards of Medical Care in Diabetes 2016, [place] Diabetes Association. Diabetes Care. 2016.39(Suppl 1). BUN 23 9 - 24 mg/dL 03/13/2017 7:37 PM [facility] Creatinine 1.26(H) 0.73 - 1.22 mg/dL 03/13/2017 7:37 PM [facility] Sodium 142 136 - 144 mmol/L 03/13/2017 7:37 PM [facility] Potassium 4.7 3.7 - 5.1 mmol/L 03/13/2017 7:37 PM [facility] Chloride 103 97 - 105 mmol/L 03/13/2017 7:37 PM [facility] CO2 28 22 - 30 mmol/L 03/13/2017 7:37 PM [facility] Anion Gap 11 9 - 18 mmol/L 03/13/2017 7:37 PM [facility] ALT 22 10 - 54 U/L 03/13/2017 7:37 PM EDT [facility] eGFR- >60 03/13/2017 7:37 PM EDT [facility] eGFR-All Other Races 57 . 03/13/2017 7:37 PM EDT [facility] Comment: eGFR (Estimated GFR) Units of measure: mL/min/1.73 meters squared eGFR is derived from the reexpressed MDRD Study equation using the following parameters: serum creatinine, age, gender and race. The creatinine assay has been calibrated to be traceable to IDMS. An eGFR <60 mL/min/1.73m2 for >3 months is consistent with chronic kidney disease. Refer to KDOQI guidelines for clinical interpretation. In patients with unstable renal function, e.g. those with acute kidney injury, the eGFR may not accurately reflect actual GFR. Blood specimen (specimen) BLOOD SPECIMEN / Unknown 03/13/2017 4:14 PM EDT 03/13/2017 4:16 PM EDT Dontae Ring MD LABORATORY Final Result [facility] [address] [place] [address] from Last 3 Months or Most Recently Relevant to Health Maintenance Insurance [facility] Care Teams Refinery Technician Relationship Specialty Start Date End Date Lenard Penaloza DO PCP - General Family Medicine 03/28/12
--- OUTSIDE RECORDS SUMMARY | 2024-12-24 10:53 | XMS_ITS | Encounter Summary ---
Author Organization [facility] Address [address] [place] [address] Care Team Providers Care Head Up Operator Helper Name Role Phone Sacha Irizarry MD Primary Care Provider + [phone] Encounter Details Date Type Department Care Team (Late st Contact Info) Description 12/13/2024 Telephone [facility] Heart at [facility] [address] [place] [address] Polina Dominguez MA Social History Tobacco Use Types Packs/Day Years Used Date Smoking Tobacco: Never Cigarettes Qu it: 05/22/1996 Cigars Passive Smoke Exposure: Yes Smokeless Tobacco: Never Comments:An occasional cugar Alcohol Use Standard Drinks/Week Comments Yes 3 (1 standard drink = 0.6 oz pur e alcohol) Social [facility] Utilities Answer Date Recorded In the past 12 months has th e electric, gas, oil, or water company threatened [...] time in the past 12 m [facility], were you homeless or living in a [...] on file documented as of this encounter Miscellaneous Notes * Telephone Encounter - Cecily Gaston MA - 12/18/2024 8:43 AM EDT called back again and I gave her result of echo per Dr. Mcqueen. I then forwarded her to [facility] scheduling to get PFT's set up. documented in this encounter Plan of Treatment Upcoming Encounters Date Type Department Care Team (Late st Contact Info) Description 01/15/2025 10:30 AM EDT Office Visit [facility] at [facility] [address] [place] [address] Laina Mcqueen MD [address] [facility] [place] [address] documented as of this encounter Visit Diagnoses Not on filedocumented in this encounter Care Teams Head Up Operator Helper Relationship Specialty Start Date End Date Sacha Irizarry MD [address] [place] [address] PCP - General Internal Medicine 07/29/24 documented as of this encounter
--- OUTSIDE RECORDS SUMMARY | 2024-12-24 10:53 | XMS_ITS | Clinical Summary ---
Author Organization [facility] Address [address] [place] [address] Phone Care Team Providers Care Traffic Observer Name Role Phone Unavailable Primary Care Provider Unavailabl e Social History Tobacco Use Types Packs/Day Years Used Date Smoking Tobacco: Never Assessed Sex and Gender Information Value Date Recorded Sex Assigned at Not on file Legal Sex Male 7:36 PM EST Gender Identity Not on file Sexual Orientation Not on file Plan of Treatment Not on file
[2024-12-24] MEDS: ALBUTEROL SULFATE 2.5 MG/3 ML VIAL NEB IH (11:48)
== END 2024-12-24 10:50 | disposition home or self-care (01) ==
LOC: CARD 10:49
PROVIDERS: Family Provider Internal Medicine; PCP Internal Medicine; Visit Provider Internal Medicine Interventional Cardiology
DX: R06.09 Other forms of dyspnea (principal)
CPT/HCPCS: 94060; 94726; 94729

== ENCOUNTER 2025-01-15 11:18 | Outpatient (OUT) | payer MEDICARE, OTHER, SELFPAY ==
--- OUTSIDE RECORDS SUMMARY | 2025-01-15 10:30 | XMS_ITS | Encounter Summary ---
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 (Primary Dx); Atrial flutter, unspecified type (CMS/HCC); S/P left atrial appendage ligation; BARRIENTOS (dyspnea on exertion) Social History Tobacco Use Types Packs/Day Years Used Date Smoking Tobacco: Former Cigarettes Q uit: 05/22/1996 Cigars Passive Smoke Exposure: Yes Smokeless Tobacco: Never Tobacco Cessation:Counseling Given: Not Answered Comments:An occasional cigar Alcohol Use Standard Drinks/Week Comments Yes 3 (1 standard drink = 0.6 oz pur e alcohol) Social [facility] Utilities Answer Date Recorded In the past 12 months has e [employer], gas, oil, or water [employer] threatened to shut off services in your [...] time in the past 12 m [facility], were you homeless or living in a senior living (including now)? No 08/14/2024 Hunger Vital Sign Answer Date Recorded Within the past 12 months, y ou worried that your food would run out before you got the money to buy more. Never true 08/15/19 25 Ran Out of Food in the Last Year Not on file 08/14/2024 Sex and Gender Information Value Date Recorded Sex Assigned at Male 01/07/2025 4:12 PM EDT Legal Sex Male 10:26 AM EST Gender Identity Male 01/07/2025 4:12 PM EDT Sexual Orientation Heterosexual or Straight 12/20 4:12 PM EDT documented as of this encounter Last Filed Vital Signs Vital Sign Reading Time Taken Comments Blood Pressure 109/68 01/15/2025 10:43 AM EDT Pulse 61 01/15/2025 10:43 AM EDT Temperature - - Respiratory Rate - - Oxygen Saturation 97% 01/15/2025 10:43 AM EDT Inhaled Oxygen Concentration - - Weight 93.4 kg (206 lb) 01/15/2025 10:43 AM EDT Height 180.3 cm (5' 11 ) 01/15/2025 10:43 AM EDT Body Mass Index 28.73 01/15/2025 10:43 AM EDT documented in this encounter Progress Notes * Laina Mcqueen MD - 01/15/2025 10:30 AM EDT Images from the original note were not included. [place] [facility] Chief Complaint: patient here today for a one month up. Patient states if he doesn't exert himself he feels well. Patient states he still has SOB, BARRIENTOS, fatigue. Occasional leg swelling, weight fluctuation. Patient recently had Echo and PFT. HPI Lang James is a 73 y.o. year old male patient being seen for follow up CABG per CT surgery. He was seen by Dr. Dos Santos yesterday for atrial flutter. He's been getting lightheaded lately, especially upon standing up. Denies chest pain Lang is seen in follow-up after his CABG surgery. He is a 73-year-old man who underwent cardiac catheterization for investigation of shortness of breath and abnormal stress test. Cardiac catheterization showed severe three-vessel coronary artery disease [LOPEZ to LAD, SVG to second OM, SVG to distal RCA]. He underwent CABG and left atrial appendageamputation with a maze. Prior to the surgery his LVEF was 45 to 50%. Echocardiogram postsurgery showed LVEF improved to 50%. Additional medical history include atrial fibrillation and flutter for which he was seen Dr. Willie Dos Santos, As well as hyperlipidemia. After the surgery he recovered well. Today he reports that he has no chest pain. He has mild shortness of breath on exertion. He has been getting lightheaded and dizzy when standing up and walking. He has no lower extremity edema. He does not feel palpitations. He is currently maintained on dual antiplatelet therapy with aspirin and Plavix, amiodarone 200 mg daily, statin therapy and metoprolol tartrate 12.5 mg twice daily. His blood pressure today is low with 85 systolic. UPDATE 11/21/2024 Patient still describing shortness of breath however it somewhat confusing; he states that he becomes short of breath if he walks up and down 2 flights of stairs or if he is lifting 25 pounds over 100 feet. He participated in cardiac rehabilitation without problems. He has had no chest pain. He has had no orthopnea or paroxysmal external dyspnea. He has indentation from his socks at the end of the day. He has had 3 pound weight gain over 2 weeks. 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 UPDATE 01/15/2025 patient here today for a one month up. Patient states if he doesn't exert himself he feels well. Patient states he still has SOB, BARRIENTOS, fatigue. Occasional leg swelling, weight fluctuation. Patient recently had Echo and PFT He has a number of symptoms including continued exertional shortness of breath if he climbs 2 flights of stairs or more. He states that he fluctuates in weight between ??5 pounds. He denies orthopneaor paroxysmal tunnel dyspnea. He is concerned that his heart rate does not increase like it used to after exercise; while it usedto go up into the 140s he now can only go up into the 120s. After much cajoling, he admitted he is concerned because his mother of heart failure. Review of Systems Constitutional: Positive for malaise/fatigue and weight gain. Cardiovascular: Positive for dyspnea on exertion and leg swelling. Respiratory: Positive for shortness of breath. Patient Active Problem List Diagnosis Agatston coronary artery calcium score less than 100 Cervical spondylosis without myelopathy Chronic neck pain Gastroesophageal reflux disease without esophagitis Hypercholesteremia Obesity Polyarthritis of multiple sites Abnormal stress test Dyspnea Coronary artery disease involving assiniboine and sioux coronary artery of assiniboine and sioux heart Paroxysmal atrial fibrillation (CMS/HCC) Multi-vessel coronary artery stenosis Postoperative anemia due to acute blood loss Atelectasis Abnormal ECG S/P CABG x 3 Family History Problem Relation Name Age of Onset Heart failure Mother Ada Coronary artery disease Father Merril Heart failure Father Merril Diabetes Sister Diabetes Brother Social History Tobacco Use Smoking status: Never Passive exposure: Yes Smokeless tobacco: Never Tobacco comments: An occasional cugar Substance Use Topics Alcohol use: Yes Alcohol/week: 3.0 standard drinks of alcohol Types: 1 Glasses of wine, 2 Cans of beer per week Comment: Social Drug use: Never Objective Visit Vitals Smoking Status Never BP 109/68 (BP Location: Left arm, Patient Position: Sitting) Pulse 61 Ht 1.803 m (5' 11 ) Wt 93.4 kg (206 lb) SpO2 97% BMI 28.73 kg/m?? Physical Exam Constitutional: Appearance: He is well-developed. He is not ill-appearing. HENT: Head: Normocephalic and atraumatic. Nose: Nose normal. Eyes: General: No scleral icterus. Pupils: Pupils are equal, round, and reactive to light. Neck: Thyroid: No thyromegaly. Vascular: No JVD. Cardiovascular: Rate and Rhythm: Normal rate and regular rhythm. Pulses: Radial pulses are 2+ on the right side and 2+ on the left side. Heart sounds: Normal heart sounds. No murmur heard. No friction rub. No gallop. Pulmonary: Effort: Pulmonary effort is normal. No respiratory distress. Breath sounds: Normal breath sounds. No wheezing or rales. Chest: Chest wall: No tenderness. Abdominal: General: Bowel sounds are normal. There is no distension. Palpations: Abdomen is soft. Tenderness: There is no abdominal tenderness. Musculoskeletal: General: No swelling. Cervical back: Neck supple. Skin: General: Skin is warm and dry. Neurological: General: No focal deficit present. Mental Status: He is alert and oriented to person, place, and time. Psychiatric: Mood and Affect: Mood normal. Behavior: Behavior is cooperative. Judgment: Judgment normal. Allergies No Known Allergies Medications Current Outpatient Medications: acetaminophen (Tylenol) 500 mg tablet, Take 1 tablet (500 mg) by mouth every 6 (six) hours if needed for mild pain (1-3 pain score) for up to 295 doses., Disp: 30 tablet, Rfl: 0 amiodarone (Pacerone) 200 mg tablet, Take 2 tablets (400 mg) by mouth with breakfast and with evening meal for 7 days, THEN 1 tablet (200 mg) with breakfast. (Patient taking differently: 200mg daily), Disp: 127 tablet, Rfl: 0 aspirin 81 mg chewable tablet, Chew 1 tablet (81 mg) once daily as directed., Disp: 90 tablet, Rfl:3 atorvastatin (Lipitor) 20 mg tablet, Take 1 tablet (20 mg) by mouth at bedtime., Disp: 90 tablet, Rfl: 3 clopidogrel (Plavix) 75 mg tablet, Take 1 tablet (75 mg) by mouth once daily as directed., Disp: 90tablet, Rfl: 3 furosemide (Lasix) 40 mg tablet, Take 1 tablet (40 mg) by mouth in the morning., Disp: 90 tablet, Rfl: 3 magnesium oxide 500 mg magnesium tablet, Take 1 tablet by mouth in the morning., Disp: , Rfl: methocarbamol (Robaxin) 500 mg tablet, Take 1 tablet (500 mg) by mouth if needed in the morning, atnoon, and at bedtime for muscle spasms for up to 10 days. (Patient not taking: Reported on 11/21/2024), Disp: 40 tablet, Rfl: 0 omeprazole (PriLOSEC) [address] capsule, Take 1 capsule (20 mg) by mouth before breakfast., Disp: 30capsule, Rfl: 0 Recent Labs Orders Only on 08/29/2024 Component Date Value Ventricular Rate 08/29/2024 70 Atrial Rate 08/29/2024 70 AR Interval 08/29/2024 162 QRS DURATION 08/29/2024 144 QT Interval 08/29/2024 516 QTC CALCULATION(BAZETT) 08/29/2024 557 P [place] 08/29/2024 38 R-[place] 08/29/2024 -62 T Wave [place] 08/29/2024 53 Lab on 08/29/2024 Component Date Value Sodium 08/29/2024 137 Potassium 08/29/2024 3.8 Chloride 08/29/2024 99 CO2 08/29/2024 33 (H) Anion Gap 08/29/2024 9 BUN 08/29/2024 20 Creatinine 08/29/2024 1.10 BUN/Creatinine Ratio 08/29/2024 18.2 Glucose 08/29/2024 90 Calcium 08/29/2024 9.2 AST 08/29/2024 32 ALT (SGPT) 08/29/2024 57 (H) Alkaline Phosphatase 08/29/2024 158 (H) Total Protein 08/29/2024 7.4 Albumin 08/29/2024 4.1 Total Bilirubin 08/29/2024 0.8 eGFR 08/29/2024 70.4 Magnesium 08/29/2024 2.3 Auto WBC 08/29/2024 11.09 (H) RBC 08/29/2024 3.45 (L) Hemoglobin 08/29/2024 10.3 (L) Hematocrit 08/29/2024 33.3 (L) MCV 08/29/2024 96.5 MCH 08/29/2024 29.9 MCHC 08/29/2024 30.9 (L) RDW 08/29/2024 14.3 Neutrophils % 08/29/2024 81.5 (H) Lymphocytes % 08/29/2024 7.8 (L) Monocytes % 08/29/2024 7.5 Eosinophils % 08/29/2024 1.0 Basophils % 08/29/2024 0.5 Neutrophils Absolute 08/29/2024 9.04 (H) Lymphocytes Absolute 08/29/2024 0.86 (L) Monocytes Absolute 08/29/2024 0.83 Eosinophils Absolute 08/29/2024 0.11 Basophils Absolute 08/29/2024 0.06 Platelets 08/29/2024 633 (H) nRBC % 08/29/2024 0.0 Immature Granulocytes % 08/29/2024 1.7 (H) Immature Granulocytes Ab* 08/29/2024 0.19 No results displayed because visit has over 200 results. Hospital Outpatient Visit on 08/14/2024 Component Date Value BSA 08/14/2024 2.2 BMP 09/02/2024: BUN 19, creatinine 1.01, EGFR 78, potassium 5. Imaging and other tests ECG 08/29/2024: Normal sinus rhythm Right bundle branch block Left anterior fascicular block Bifascicular block Minimal voltage criteria for LVH, may be normal variant (R in aVL) Abnormal ECG Echocardiogram : Left Ventricle: The left ventricle is normal size. Global left ventricular systolic function is at lower limits of normal. EF range is estimated at 50 % - 55 %. Left ventricular wall thickness is normal. The septum is abnormal in its motion, not unusal finding in the post open heart patient. Right Ventricle: The right ventricle is normal in size. Normal right ventricular systolic function. Dopplerstudies suggest normal right sided pressures. Left Atrium: The left atrium appears enlarged. Pericardium: No pericardial effusion. Overall Conclusions: Due to suboptimal imaging Lumason contrast was administered for opacification and better delineation of endocardial borders. Limited imaging windows due to bandages. Cardiac catheterization 08/14/2024: FINAL IMPRESSIONS: Severe, three-vessel coronary artery disease including the left main coronary artery Mildly reduced global left ventricular systolic function by noninvasive imaging Mildly elevated right-sided filling pressures Significantly reduced cardiac output/cardiac index Stress test 08/05/2024: CONCLUSION: 1. Myocardial perfusion is abnormal with soft tissue attenuation 2. There is an inferior fixed defect with associated hypokinesis consistent with infarct 3. There is a small, mild, reversible apical defect suggestive of ischemia 4. Global left ventricular systolic function is mildly reduced 5. No evidence of transient ischemic dilatation Echocardiogram 07/22/2024: CONCLUSION: 1. Global left ventricular systolic function is mildly decreased; visually estimated ejection fraction is 45 to 50% 2. Normal right ventricular size and systolic function 3. Mild left ventricular hypertrophy 4. The right atrium is mildly enlarged 5. Mild tricuspid regurgitation 6. Mild mitral regurgitation 12 lead EKG 11/21/2024 Sinus bradycardia Right bundle branch block Left anterior fascicular block Bifascicular block Abnormal EKG Labs 11/25/2024: BUN 15 creatinine 0.99 PFTs 12/24/2024: Summary: Could suggest possible reactive airway disease/asthma Echocardiogram 12/06/2024: Global left ventricular systolic function is normal without wall motion abnormalities, EF 67% Mild left ventricle hypertrophy Normal left ventricular diastolic function Normal right-sided size and systolic function Normal right-sided pressures Mildly dilated left atrium No significant valvular abnormalities Assessment/Plan Coronary artery disease s/p bypass surgery 08/16/2024 Heart failure with recovered ejection fraction History of atrial fibrillation/flutter s/p surgical Maze procedure and left atrial appendage ligation surgically Exertional shortness of breath History of pulmonary disease PLAN: I must admit, I was a little flustered with the patient's anxiety over his heart. I tried to the best of my ability to reassure him that he has already undergone the hard part which is bypass surgery. Continue optimal medical therapy for coronary artery disease including DAPT for at least 2 years after bypass, moderate intensity statin therapy, a beta-[place] plus or minus a RAAS inhibitor Continue diuretic; he is to weigh himself daily and if he notices an increase in weight by 3 poundsor more he is to take an extra dose I reassured the patient that I have no plausible explanations for his symptoms from a cardiac standpoint; his EF is preserved, he has normal diastolic function, he has normal right-sided pressures; Iwill refer him to pulmonology for evaluation of his exertional shortness of breath and history of lung damage in the past 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 breath is coming from pulmonary disorders, we will discuss the need for either CT coronary and graft angiogram versus invasive angiography and a right heart catheterization I would like to see him in the next 1 to 2 months or sooner should problems arise Laina Mcqueen MD, MPH, [facility], [facility], [facility] Interventional Cardiology Pager Email: [email or web address] documented in this encounter Plan of Treatment Upcoming Encounters Date Type Department Care Team (Late st Contact Info) Description 04/09/2025 9:15 AM EST Office Visit [facility] Heart [facility] [address] [place] [address] Laina Mcqueen MD [address] [facility] [place] [address] documented as of this encounter Visit Diagnoses Diagnosis 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
--- OUTSIDE RECORDS SUMMARY | 2025-01-15 11:21 | XMS_ITS | Encounter Summary ---
Author Organization [facility] Address [address] [place] [address] Care Team Providers Care Department Of Mathematics Chair Name Role Phone Sacha Irizarry MD Primary Care Provider + [phone] Encounter Details Date Type Department Care Team (Late st Contact Info) Description 01/13/2025 Orders Only [facility] Heart at [facility] [address] [place] [address] Provider, MD Denisa [address] [place] [address] Social History Tobacco Use Types Packs/Day Years Used Date Smoking Tobacco: Never Cigarettes Qu it: 05/22/1996 Cigars Passive Smoke Exposure: Yes Smokeless Tobacco: Never Comments:An occasional cugar Alcohol Use Standard Drinks/Week Comments Yes 3 (1 standard drink = 0.6 oz pur e alcohol) Social [facility] Utilities Answer Date Recorded In the past 12 months has [employer] electric, gas, oil, or water company threatened [...] any time in the past 12 m [facility], were you homeless or living in a halfway (including now)? No 08/14/2024 Hunger Vital Sign [...] PM EDT documented as of this encounter Plan of Treatment Upcoming Encounters Date Type Department Care Team (Late st Contact Info) Description 04/09/2025 9:15 AM EST Office Visit [place] [address] [place] [address] Laina Mcqueen MD [address] [facility] [address] [facility] [place] [id number] documented as of this encounter Procedures Procedure Name Priority Date/Time Associated Diagnosis Comments PULMONARY FUNCTION TESTING Routine 12/24/2024 2:13 PM EDT documented in this encounter Results * Pulmonary function testing (12/24/2024 2:13 PM EDT) Anatomical Region Laterality Modality Other us Historical Provider PFT ORDERABLES Final Res ult documented in this encounter Visit Diagnoses Not on filedocumented in this encounter Care Teams Department Of Mathematics Chair Relationship Specialty Start Date End Date Sacha Irizarry MD [address] [place] [id number] PCP - General Internal Medicine 07/29/24 documented as of this encounter
--- OUTSIDE RECORDS SUMMARY | 2025-01-15 11:21 | XMS_ITS | Encounter Summary ---
Author Organization [facility] Address [address] [place] [address] Care Team Providers Care Bookseamer Blindstitch Name Role Phone Sacha Irizarry DO Primary Care Provider [phone] Sacha Irizarry DO Unavailable [phone] Bri Alva LPN Unavailable [phone] Amber Lopez RN Unavailable [phone] Encounter Details Date Type Department Care Team (Late st Contact Info) Description 07/31/2024 Orders Only [facility] [address] [facility] [address] [place] [address] Sacha Irizarry DO [address] [facility] [address] [place] [address] Bilateral leg edema; SOB (shortness [...] [address] [place] [address] Sacha Irizarry DO [address] [place] [address] documented as of this encounter Procedures Procedure [...] ECG ORDERABLES Final Result Performing Organization Address City/State/[facility] Co de Phone Number [facility] [address] [place] [address], documented in this encounter Visit Diagnoses Diagnosis Bilateral leg edema Edema SOB (shortness of breath) Shortness of breath Agatston coronary artery calcium score less than 100 Chest pain, unspecified type documented in this encounter Care Teams Bookseamer Blindstitch Relationship Specialty Start Date End Date Sacha Irizarry DO [address] [place] [address] PCP - General Internal Medicine 09/27/22 Sacha Irizarry DO [address] [place] [address] PCP - ACO Reach 10/13/22 Bri Alva LPN [address] [place] [address] Licensed Practical Nurse Family Medicine 08/14/2408/15 Amber Lopez RN [address] [facility] [address] [place] [address] Registered Nurse Family Medicine 08/15/24 08/15/24 documented as of this encounter
--- OUTSIDE RECORDS SUMMARY | 2025-01-15 11:21 | XMS_ITS | Encounter Summary ---
Author Organization [facility] Address [address] [place] [address] Care Team Providers Care Telegraph Printer Mechanic Name Role Phone Sacha Irizarry MD Primary Care Provider + [phone] Reason for Referral * Consultation (Routine) - Pending Review Specialty Diagnoses / Procedures Referred By Consuelo avila Referred To Contact Pulmonary Disease Diagnoses BARRIENTOS (dyspnea on exertion) Procedures MO OFFICE/OUTPATIENT [facility] 60 MINUTES Laina Mcqueen MD [address] [facility] [address] [facility] [place] [address] Phone: tel: fax: Referral ID Status Reason Start Date Expiration Date Visits Requested Visits Authorized [id number] Pending Review Specialty Services Required 01/15/2025 01/15/2026 1 1 Encounter Details Date Type Department Care Team (Late st Contact Info) Description 01/15/2025 Orders Only [facility] Heart at [facility] [address] [place] [address] Polina Dominguez MA BARRIENTOS (dyspnea on exertion) (Primary Dx) Social History Tobacco Use Types Packs/Day Years Used Date Smoking Tobacco: Former Cigarettes Q uit: 05/22/1996 Cigars Passive Smoke Exposure: Yes Smokeless Tobacco: Never Comments:An occasional cigar Alcohol Use Standard Drinks/Week Comments Yes 3 (1 standard drink = 0.6 oz pur e alcohol) Social [facility] Utilities Answer Date Recorded In the past 12 months has [employer], gas, oil, or water [employer] threatened to shut off services in your [...] any time in the past 12 m [facility], were you homeless or living in a fpc (including now)? No 08/14/2024 Hunger Vital Sign [...] Description 04/09/2025 9:15 AM EST Office Visit [place] [address] [place] [address] Laina Mcqueen MD [address] [facility] [place] [address] Scheduled Orders Name Type Priority Associated Diagnoses Orde r Schedule XR chest 2 views Imaging Routine BARRIENTOS (dyspnea on exertion) Expected: 01/15/2025, Expires: 01/15/2026 Scheduled Referrals Name Type Priority Associated Diagnoses Order Schedule Ambulatory referral to Pulmonology Outpatient Referral Routine BARRIENTOS (dyspnea on exertion) Expected: 01/15/2025 (Approximate), Expires: 07/18/2025 documented as of this encounter Visit Diagnoses Diagnosis BARRIENTOS (dyspnea on exertion)- Primary Other dyspnea and respiratory abnormality documented in this encounter Care Teams Telegraph Printer Mechanic Relationship Specialty Start Date End Date Sacha Irizarry MD [address] [place] [address] PCP - General Internal Medicine 07/29/24 documented as of this encounter
--- OUTSIDE RECORDS SUMMARY | 2025-01-15 11:21 | XMS_ITS | Clinical Summary ---
Author Organization [facility] Address [address] [place], [place] [id number] Care Team Providers Care Change Person Name Role Phone Lenard Penaloza Primary Care [...] - 8.0 g/dL 03/13/2017 7:37 PM EDT [facility] Albumin 4.5 3.9 - 4.9 g/dL 03/13/2017 7:37 PM [facility] Calcium 10.0 8.5 - 10.2 mg/dL 03/13/2017 7:37 PM [facility] Bilirubin, Total 0.4 0.2 - 1.3 mg/dL 03/13/2017 7:37 PM [facility] Alkaline Phosphatase 52 36 - 108 U/L 03/13/2017 7:37 PM [facility] AST 27 14 - 40 U/L 03/13/2017 7:37 PM [facility] Glucose 84 74 - 99 mg/dL 03/13/2017 7:37 PM [facility] Comment: The [place] Diabetes Association (ADA) provides guidance for cutoff [...] Standards of Medical Care in Diabetes 2016, [place] [employer]. Diabetes Care. 2016.39(Suppl 1). BUN 23 9 - 24 mg/dL 03/13/2017 7:37 PM [facility] Creatinine 1.26(H) 0.73 - 1.22 mg/dL 03/13/2017 7:37 PM [facility] Sodium 142 136 - 144 mmol/L 03/13/2017 7:37 PM [facility] Potassium 4.7 3.7 - 5.1 mmol/L 03/13/2017 7:37 PM [facility] Chloride 103 97 - 105 mmol/L 03/13/2017 7:37 PM [facility] CO2 28 22 - 30 mmol/L 03/13/2017 7:37 PM [facility] Anion Gap 11 9 - 18 mmol/L 03/13/2017 7:37 PM [facility] ALT 22 10 - 54 U/L 03/13/2017 7:37 PM EDT [facility] eGFR- >60 03/13/2017 7:37 PM EDT [facility] eGFR-All Other Races 57 . 03/13/2017 7:37 PM EDT [facility] Comment: eGFR (Estimated GFR) [...] EDT Dontae Ring MD LABORATORY Final Result [facility] [address] [place] [address] from Last 3 Months or Most Recently Relevant to Health Maintenance [facility] Care Teams Change Person Relationship Specialty Start Date End Date Lenard Penaloza DO PCP - General Family Medicine 03/28/12
--- OUTSIDE RECORDS SUMMARY | 2025-01-15 11:21 | XMS_ITS | Encounter Summary ---
Author Organization [facility] Address [address] [place] [address] Care Team Providers Care Payment Manager Name Role Phone Sacha Irizarry DO Primary Care Provider [phone] Sacha Irizarry DO Unavailable [phone] Bri Alva LPN Unavailable [phone] JessicaAmber kulkarni RN Unavailable [phone] Reason for Referral * Imaging (Routine) - Closed Specialty Diagnoses / Procedures Referred By Contac t Referred To Contact Radiology Diagnoses Bilateral leg edema SOB (shortness of breath) Agatston coronary artery calcium score less than 100 Chest pain, unspecified type Procedures Transthoracic echo (TTE) complete Sacha Irizarry DO [address] [facility] [address] [place] [address] Phone: tel: fax: [facility] Scheduling [address] [place] [address] Phone: tel: fax: Referral ID Status Reason Start Date Expiration Date V isits Requested Visits Authorized [id number] Closed Perform Procedure 07/17/2024 01/13/2025 1 1 * Imaging (Routine) - Closed Specialty Diagnoses / Procedures Referred By Contac t Referred To Contact [facility] Diagnoses Bilateral leg edema SOB (shortness of breath) Agatston coronary artery calcium score less than 100 Chest pain, unspecified type Procedures Stress test with myocardial perfusion Sacha Irizarry DO [address] [place] [address] Phone: tel: fax: [facility] Sched[facility] [address] [place] [address] Phone: tel: fax: Referral ID Status Reason Start Date Expiration Date Visits Re quested Visits Authorized [id number] Closed 07/17/2024 01/13/2025 3 3 Encounter Details Date Type Department Care Team (Late st Contact Info) Description 07/17/2024 Orders Only [facility] [address] [facility] [address] [place] [phone] Nathalie Fuentes LPN Bilateral leg edema; SOB [...] Visit [facility] [address] [facility] [place] [address] Sacha Irizarry DO [address] [place] [address] Scheduled Orders Name Type Priority Associated Diagnoses [...] Sacha Irizarry DO ECG ORDERABLES Final Result [facility] [address] [place] [address], [place] * Transthoracic echo (TTE) complete (07/23/2024 9:55 AM EST) Anatomical Region Laterality Modality Heart Ultrasound us Sacha Irizarry DO CV ECHO PROCEDURES Final Res ult documented in this encounter Visit Diagnoses Diagnosis Bilateral leg edema Edema SOB (shortness of breath) Shortness of breath Agatston coronary artery calcium score less than 100 Chest pain, unspecified type documented in this encounter Care Teams Payment Manager Relationship Specialty Start Date End Date Sacha Irizarry DO [address] [place] [address] PCP - General Internal Medicine 09/27/22 Sacha Irizarry DO [address] [place] [address] PCP - ACO Reach 10/13/22 Bri Alva LPN [address] [place] [address] Licensed Practical Nurse Family Medicine 08/14/2408/15 Amber Lopez, RN [address] [place] [address] Registered Nurse Family Medicine 08/15/24 08/15/24 documented as of this encounter
--- OUTSIDE RECORDS SUMMARY | 2025-01-15 11:21 | XMS_ITS | Clinical Summary ---
Author Organization [facility] Address [address] [place] [address] Care Team Providers Care Activities Concierge Name Role Phone Dennis Irizarry DO Primary Care Provider Dennis Irizarry DO Unavailable [phone] Allergies No known active allergies Medications latanoprost [...] 90 capsule 3 10/26/19 24 025 Discontinued Active Problems Problem Noted Date Diagnosed Date Abnormal ECG 11/02/2024 Overview (11/02/2024): RBBB/LAHB Status post ligation of left atrial appendage S/P Maze operation for atrial fibrillation 11/02 Atrial fibrillation 11/02/2024 Mixed hyperlipidemia 11/02/2024 S/P CABG x 3 11/02/2024 Overview (11/02/2024): [facility], SVG TO 2ND OM, [...] Encounters Date Type Department Care Team Description 12/25/2024 Clinisync Result Encounter [facility] External Department Unsolicited Provider, Generic External Data 12/17/2024 Refill [facility] [place] [facility] [address] [place] [address] Dennis Irizarry, Gastroesophageal reflux disease without esophagitis 12/11/2024 Clinisync Result Encounter [facility] External Department Unsolicited Provider, Generic External Data 12/07/2024 Clinisync Result Encounter NOMS External Department [...] Name Status Comments Brother Casey Maternal Grandmother Lenore Mother Ada Paternal Grandfather WG Paternal Grandmother [...] 03/28/2025 9:00 AM EST Office Visit [facility] [place] [facility] [address] [place] [phone] Dennis Irizarry DO [address] [place] [address] Health Maintenance Due Date Last Done Comments CT Colonography 1950 Colonoscopy 1950 FIT 1950 FOBT 1950 Sigmoidoscopy 1950 Medicare Annual Wellness (AWV) 09/03/2023 09/02/2022 , 08/27/2021 Influenza Vaccine (#1) 2025 Colorectal Cancer Screening 09/27/2026 FIT-DNA 09/27/2026 09/28/2023, 05/2019, 04/21/2020 Pneumococcal Vaccine: 65+ Years Completed 9, 04/19/2018 Procedures Procedure Name Priority Date/Time Associated Diagnosis Comments ITP 12/25/2024 7:09 AM EDT ITP 12/11/2024 11:22 AM EDT CA ECHO DOPPLER COMPLETE 12/07/2024 6:23 PM EDT ALL PRO BNP Routine 11/25/2024 8:12 AM EDT [facility] CMP (CMP) (FOR REMOTE [facility] USE) Routine 11/25/2024 8:12 AM EDT ALL CBC WITH AUTO DIFF Routine 11/25/2024 8:12 AM EDT ITP 11/14/2024 8:56 AM EDT ITP 10/16/2024 7:15 AM EDT LAB COLOGUARD COLON CANCER SCREEN Routine 09/28/2023 4:00 PM EDT Colon cancer screening from Last 3 Months or Most Recently Relevant to Health Maintenance Results * ITP (12/25/2024 7:09 AM EDT) Only the most recent of4 resultswithin the time period is included. Anatomical Region Laterality Modality Other 12/25/2024 7:09 AM EDT Narrative 12/27/2024 10:[place] [address] Cardiac Rehab Report Signed Patient: EMMA JAMES MR#: [id number] : 1950 Acct:[id number] Age/Sex: 74 / M ADM Date: 12/13/24 Loc: CR Attending Dr: ARMIDA GUTIERREZ Ordering Physician: Laina Abad M.D. Date of Service: 12/25/24 Procedure(s): ITP Accession Number(s): [id number] cc: [facility] Test Date: 2024-12-25 Pat Name: EMMA JAMES Department: Room: - Gender: Male Slip Operator: : 1950 Requested By: LAINA ABAD Order Number: [id number] Reading MD: ARMIDA GUTIERREZ M.D. Interpretive Statements Patient may continue cardiac rehab as outlined in the treatment plan. Electronically Signed On 12-27-2024 10:27:23 EDT by ARMIDA GUTIERREZ M.D. Dictated By: ARMIDA GUTIERREZ Signed By: 12/27/24 1027 12/27/24 1027 DD/ 0709 TD/TT: Fire Investigation Manager: Procedure Note Radiology, Radiologist, MD - 12/27/2024 [facility] [place] [id number] Cardiac Rehab Report Signed Patient: EMMA JAMES MMR#: [id number] : 1950Acct:[id number] Age/Sex: 74 / MADM Date: 12/13/24 Loc: CR Attending Dr: ARMIDA GUTIERREZ Ordering Physician: Laina Abad M.D. Date of Service: 12/25/24 Procedure(s): ITP Accession Number(s): [id number] cc: [facility] Test Date: 2024-12-25 Pat Name: EMMA JAMES Department: Room: - Gender: Male Slip Operator: : 1950 Requested By: LAINA ABAD Order Number: [id number] Reading MD: ARMIDA GUTIERREZ M.D. Interpretive Statements Patient may continue cardiac rehab as outlined in the treatment plan. Electronically Signed On 12-27-2024 10:27:23 EDT by ARMIDA GUTIERREZ M.D. Dictated By: ARMIDA GUTIERREZ Signed By:12/27/24 1027 12/27/24 1027 DD/ 0709 TD/TT: Fire Investigation Manager: us Generic External Data Provider [facility] Final Result * CA ECHO DOPPLER COMPLETE (12/07/2024 6:23 PM EDT) Anatomical Region Laterality Modality Other 12/07/2024 6:23 PM EDT Narrative 12/07/2024 6:25 [place] [address] Cardiology Report Signed Patient: EMMA JAMES MR#: [id number] : 1950 Acct:[id number] Age/Sex: 74 / M ADM Date: 12/06/24 Loc: CARD Attending Dr: Laina Abad M.D. Ordering Physician: Laina Abad M.D. Date of Service: 12/06/24 Procedure(s): CA echo doppler complete Accession Number(s): [id number] cc: Laina Abad M.D.; DENNIS IRIZARRY Patient Name: EMMA JAMES MR#: [id number] : 1950 Exam Date: 12/06/2024 Ordering Doctor: [...] Area (VTI): 2.99 cm2, 2.99 cm2 Deceleration Brewster: Pressure Half-Time: Peak Velocity(Antegrade Flow): 1.33 m/s [...] M.D. Signed By: 12/07/241824 DD/ 22 TD/TT: Fire Investigation Manager: Procedure Note Radiology, Radiologist, MD - 12/07/2024 [place] [address] Cardiology Report Signed Patient: EMMA JAMES MMR#: [id number] : 1950Acct:[id number] Age/Sex: 74 / MADM Date: 12/06/24 Loc: CARD Attending Dr: Laina Abad M.D. Ordering Physician: Laina Abad M.D. Date of Service: 12/06/24 Procedure(s): CA echo doppler complete Accession Number(s): [id number] cc: Laina Abad M.D.; DENNIS IRIZARRY Patient Name: EMMA JAMES MR#: [id number] : 1950 Exam Date: 12/06/2024 Ordering Doctor: [...] Area (VTI): 2.99 cm2, 2.99 cm2 Deceleration Brewster: Pressure Half-Time: Peak Velocity(Antegrade Flow): 1.33 m/s [...] Chowdary M.D. Signed By:12/07/241824 DD/ 22 TD/TT: Fire Investigation Manager: us Generic External Data Provider [facility] Final Result * (ABNORMAL) [facility] CMP (CMP) (FOR REMOTE [facility] USE) (11/25/2024 8:12 AM EDT) SODIUM 143 136 - 145 mmol/L [facility] POTASSIUM 4.4 3.5 - 5.1 mmol/L [facility] CHLORIDE 107 98 - 107 mmol/L [facility] CARBON DIOXIDE 28.9 21.0 - 32.0 mmol/L [facility] ANION GAP 11.5 [facility] GLUCOSE 136(H) 74 - 106 mg/dL [facility] BLOOD UREA NITROGEN 16.0 7.0 - 18.0 mg/dL [facility] CREATININE 0.99 0.70 - 1.30 mg/dL [facility] TBH EGFR-AF BAHRAINI >60 >=60 mL/min/1. 73m 2 TBH TBH EGFR-NON AF BAHRAINI >60 >=60 mL/min/1. 73m 2 TB[facility] BUN [...] [facility]IN[facility] F inal Result Performing Organization Address [facility] Co de Phone Number [facility] * ALL PRO BNP (11/25/2024 8:12 AM EDT) Pathologist [facility] NT PRO B TYPE NATRIURETIC PEPT 103.0 <=1,800.0 pg/mL TB 11/25/2024 8:12 AM EDT 11/25/2024 8:17 AM EDT Narrative [facility] - 11/25/2024 9:03 AM EDT Generic External Data Provider [facility] F inal Result Performing Organization Address [facility]/ZIP Co de Phone Number [facility] * (ABNORMAL) ALL CBC WITH AUTO DIFF (11/25/2024 8:12 AM EDT) [facility] TB WBC 5.4 4.0 - 11.0 10 3/uL TBH TBH RBC 5.12 4.70 - 6.10 10 6/uL TBH TBH HGB 12.4(L) 14.0 - 18.0 g/dL TBH TBH HCT 40.3(L) 42.0 - 54.0 % TBH TBH MCV 78.7(L) 80.0 - 94.0 fL TBH TBH MCH 24.2(L) 25.9 - 34.0 pg TBH TBH MCHC 30.8 29.9 - 35.2 g/dL TBH TBH RDW 15.1(H) 11.0 - 15.0 % TB[facility] [...] Narrative [facility] - 11/25/2024 8:38 AM EDT us Generic External Data Provider [facility] F inal Result [facility] * Cologuard?? colon cancer screening (09/28/2023 4:00 PM EDT) NONINV COLON CA DNA+OCC BLD SCRN STL-IMP Negative Negative 10/06/2023 9:50 AM EDT [facility] (CLIA #:[id number]) Comment: NEGATIVE TEST RESULT. A negative Cologuard [...] Garza et al, N Engl J Med 2014;370(14):9154-0483) The normal value (reference range) for this assay is negative. COLOGUARD RE-SCREENING RECOMMENDATION: Periodic colorectal cancer screening is an important part of preventive healthcare for asymptomatic individuals at average risk for colorectal cancer. Following a negative Cologuard result, the [place] [employer] Society and U.S. Multi-Society Task Force screening guidelines recommend a Cologuard re-screening interval of 3 years. References: [place] [employer] Guideline for Colorectal Cancer Screening: https://www.cancer.org/cancer/favej-uybbit-hewftp/uwshbvteb-fyjvyucsr-mngtwmu/ac s-rec ommendations.html.; Hebert DK, Khushboo JUNIOR, Misa DanielsK, Colorectal Cancer Screening: Recommendations for Physicians and Patients from the U.S. Multi-Society Task Force on Colorectal Cancer Screening , Am J Gastroenterology 2017; 112:3818-0433. TEST DESCRIPTION: Composite algorithmic analysis of stool [...] (Nahun Field al, N Engl J Med 2014;370(14):8143-6389.) Cologuard may produce a false negative or false positive result (no colorectal cancer or precancerous polyp present at colonoscopy follow up). A negative Cologuard test result does not guarantee the absence of CRC or advanced adenoma (pre-cancer). The current Cologuard screening interval is every 3 years. ([place] Cancer Society and U.S. Multi-Society Task Force). Cologuard performance data in a 10,000 patient pivotal study using colonoscopy as the reference method can be accessed at the following location: www.[employer]/results. Additional description of the Cologuard test process, warnings and precautions can be found at www.[employer].com. Stool specimen (specimen) 09/28/2023 4:00 PM EDT 09/30/2023 8:51 AM EDT Diamond Carter NP LAB MOLECULAR DIAGNOSTICS OR DERABLES Final Result [facility] (CLIA #:[id number]) [place] [address], from Last 3 Months or Most Recently Relevant to Health Maintenance Insurance MEDICARE S Advance Directives * DNR (Latest Code Status on File) Date Activated Date Inactivated Comments 09/15/2023 11:41 AM Care Teams Activities Concierge Relationship Specialty Start Date End Date Dennis Irizarry DO [address] [place] [address] PCP - General Internal Medicine 09/27/22 Dennis Irizarry DO [address] [place] [address] PCP - ACO Reach 10/13/22
--- OUTSIDE RECORDS SUMMARY | 2025-01-15 11:21 | XMS_ITS | Clinical Summary ---
Author Organization [facility] Address [address] [place] [address] Phone Care Team Providers Care Small Lot Operator Name Role Phone Unavailable Primary Care Provider [...]
--- OUTSIDE RECORDS SUMMARY | 2025-01-15 11:21 | XMS_ITS | Encounter Summary ---
Author Organization [facility] Address [address] [place] [address] Care Team Providers Care Pipe Insulator Name Role Phone Sacha Irizarry DO Primary Care Provider Sacha Irizarry DO Unavailable [phone] Encounter Details Date Type Department Care Team (Late st Contact Info) Description 09/03/2024 [facility] [address] [facility] [address] [place] [phone] Sacha Irizarry DO [address] [facility] [address] [place] [address] Basic metabolic panel Social History Tobacco Use Types Packs/Day Years [...] [place] [facility] [address] [facility] [address] [place] [address] Sacha Irizarry DO [address] [facility] [address] [place] [address] documented as of this encounter Visit Diagnoses Not on filedocumented in this encounter Care Teams Pipe Insulator Relationship Specialty Start Date End Date Sacha Irizarry DO [address] [facility] [address] [place] [address] PCP - General Internal Medicine 09/27/22 Sacha Irizarry DO [address] [facility] [address] [place] [address] PCP - ACO Reach 10/13/22 documented as of this encounter
--- OUTSIDE RECORDS SUMMARY | 2025-01-15 11:21 | XMS_ITS | Encounter Summary ---
Author Organization [facility] Address [address] [place] [address] Care Team Providers Care Vacuum Applicator Operator Name Role Phone BryanSacha sy Frances MURRAY Primary Care Provider Juan CSacah Frances MURRAY Unavailable [phone] Encounter Details Date Type Department Care Team (Late st Contact Info) Description 08/29/2024 Orders Only [facility] [place] [facility] [address] [facility] [address] [place] [phone] Unallocated, Noms Provider, [address] [employer], [place] [address] Social History Tobacco Use Types Packs/Day Years [...] Visit [facility] [place] [facility] [address] [facility] [place] [address] Sacha Irizarry DO [address] [facility] [address] [place] [address] documented as of this encounter Procedures Procedure Name Priority Date/Time Associated Diagnosis Comments RHYTHM ECG, REPORT Routine 08/29/2024 3:49 PM EDT documented in this encounter Results * ECG 3 Lead (08/29/2024 3:49 PM EDT) us Noms Provider Unallocated MD IN CLINIC/BEDSIDE O RDERABLES Final Result documented in this encounter Visit Diagnoses Not on filedocumented in this encounter Care Teams Vacuum Applicator Operator Relationship Specialty Start Date End Date Sacha Irizarry DO [address] [facility] [place] [address] PCP - General Internal Medicine 09/27/22 Sacha Irizarry DO [address] [facility] [place] [address] PCP - ACO Reach 10/13/22 documented as of this encounter
--- OUTSIDE RECORDS SUMMARY | 2025-01-15 11:21 | XMS_ITS | Clinical Summary ---
Author Organization [facility] Address [address] [place] [address] Care Team Providers Care City Controller Name Role Phone Sacha Irizarry MD Primary Care Provider [phone] Allergies No known active allergies Medications amiodarone (Pacerone) 200 mg tabletIndicati ons:Coronary artery disease of [place] artery of [place] heart with stable angina pectoris Take 2 tablets (400 mg) by mouth with breakfast and with evening meal for 7 days, THEN 1 tablet (200 mg) with breakfast. 127 tablet 5 08/22/19 26 Active Additional Information Patient not taking.Reported on 01/15/2025 acetaminophen (Tylenol) 500 mg tabletIndicati ons:Coronary artery disease of [place] artery of [place] heart with stable angina pectoris Take 1 [...] Active Additional Information Patient not taking.Reported on 01/15/2025 omeprazole (PriLOSEC) [address] capsuleIndicat ions:Coronary artery disease of [place] artery of [place] heart with stable angina pectoris Take 1 capsule (20 mg) by mouth before breakfast. 30 capsule 5 Active aspirin 81 mg chewable tabletIndicati ons:Coronary artery disease of [place] artery of [place] heart with stable angina pectoris Chew 1 tablet (81 mg) once daily as directed. 90 tablet 3 5 09/14/19 26 Active clopidogrel (Plavix) 75 mg tabletIndicati ons:Coronary artery disease of [place] artery of [place] heart with stable angina pectoris Take 1 tablet (75 mg) by mouth once daily as directed. 90 tablet 3 5 09/14/19 26 Active Additional Information Patient not taking.Reported on 01/15/2025 atorvastatin (Lipitor) 20 mg tabletIndicati ons:Coronary artery disease of [place] artery of [place] heart with stable angina pectoris Take 1 tablet (20 mg) by mouth at bedtime. 90 tablet 3 5 09/19/19 26 Active Additional Information Patient not taking.Reported on 01/15/2025 magnesium oxide 500 mg magnesium tablet Take 1 tablet by mouth in the morning. 5 Active furosemide (Lasix) 40 mg tabletIndicati ons:Coronary artery disease of [place] artery of [place] heart with stable angina pectoris Take 1 tablet (40 mg) by mouth in the morning. 90 tablet 3 5 12/24/19 26 Active furosemide (Lasix) 40 mg tabletIndicati ons:Coronary artery disease of [place] artery of [place] heart with stable angina pectoris Take 1 tablet (40 mg) by mouth in the morning. 30 tablet 5 12/24/19 25 Discontin ued(Reord er) Active Problems Problem Noted Date Diagnosed Date Abnormal ECG 11/02/2024 Overview (11/21/2024): RBBB/LAHB S/P CABG x 3 11/02/2024 Overview (11/21/2024): [facility] LOPEZ TO LAD, SVG TO 2ND OM, SVG TO DISTAL RIGHT CORONARY ARTERY WITH ENDOSCOPIC PROCUREMENT OF SAPHENOUS VEIN GRAFT (Left: Leg Lower), Postoperative anemia due to acute blood loss Atelectasis 08/17/2024 Dyspnea 08/14/2024 Assessment & Plan (08/14/2024 11:06 AM EDT): Continuous pulse ox Coronary artery disease invo lving [place] coronary artery of [place] heart 08/14/2024 Assessment & Plan (08/14/2024 2:18 [...] Encounters Date Type Department Care Team Description 01/15/2025 10:30 AM EDT Office Visit [place] [address] [place] [address] Laina Mcqueen MD Coronary artery disease of [place] artery of [place] heart with stable angina pectoris (Primary Dx); Atrial flutter, unspecified type (CMS/HCC); S/P left atrial appendage ligation; BARRIENTOS (dyspnea on exertion) 01/15/2025 Orders Only [facility] [address] [place] [address] Polina Dominguez MA BARRIENTOS (dyspnea on exertion) (Primary Dx) 01/13/2025 Orders Only [address] [place] [address] Denisa Mireles MD 12/23/[address] [place] [address] Polina Dominguez MA Coronary artery disease of [place] artery of [place] heart with stable angina pectoris 12/13/[address] [place] [address] Polina Dominguez MA 12/09/2024 Orders Only [address] [place] [address] ProviderDenisa MD 11/21/2024 9:15 AM EDT Office Visit [address] [place] [address] Laina Mcqueen MD Acute on chronic systolic heart failure (CMS/HCC) (Primary Dx); Leg swelling; BARRIENTOS (dyspnea on exertion) 11/21/2024 Orders Only [address] [place] [address] Polina Dominguez MA BARRIENTOS (dyspnea on exertion) (Primary Dx) 11/08/[address] [place] [address] Helga Ron MA from Last 3 Months Family History Medical [...] = 0.6 oz pur e alcohol) Social [facility] Utilities Answer Date Recorded In the [...] any time in the past 12 m [facility], were you homeless or living in a skilled nursing (including now)? No 08/14/2024 Hunger Vital Sign [...] Heterosexual or Straight 12/20 4:12 PM EDT Last Filed Vital Signs Vital Sign Reading Time Taken Comments Blood Pressure 109/68 01/15/2025 10:43 AM EDT Pulse 61 01/15/2025 10:43 AM EDT Temperature 36.9 C (98.4 F) 08/21/2024 8:00 AM EDT Respiratory Rate 20 08/21/2024 8:00 AM EDT Oxygen Saturation 97% 01/15/2025 10:43 AM EDT Inhaled Oxygen Concentration - - Weight 93.4 kg (206 lb) 01/15/2025 10:43 AM EDT Height 180.3 cm (5' 11 ) 01/15/2025 10:43 AM EDT Body Mass Index 28.73 01/15/2025 10:43 AM EDT Plan of Treatment Upcoming Encounters Date Type Department Care Team (Late st Contact Info) Description 04/09/2025 9:15 AM EST Office Visit [facility] [address] [place] [address] Laina Mcqueen MD [address] [facility] [place] [address] Health Maintenance Due Date Last Done Comments CT Colonography 1950 Colonoscopy 1950 FOBT 1950 Medicare Annual Wellness (AWV) 1950 Sigmoidoscopy 1950 Adult Tetanus 02/23/2019 02/23/2009 Zoster Vaccines (2 of 2) 05/25/2020 020, 07/14/2010 COVID-19 Vaccine (1 - 2023-2 5 season) 2024 FIT 09/27/2024 09/28/2023 Influenza [...] FUNCTION TESTING Routine 12/24/2024 2:13 PM EDT COMPLETE TRANSTHORACIC ECHO (TTE) W/WO IMAGING AGENT, STRAIN, 3D, BUBBLE STUDY Routine 12/06/2024 10:23 AM EDT ECG 12 LEAD UNIT PERFORMED Routine 11/21/2024 9:55 AM EDT BARRIENTOS (dyspnea on exertion) from Last 3 Months Results * Pulmonary function testing (12/24/2024 2:13 PM EDT) Anatomical Region Laterality Modality Other Historical Provider PFT ORDERABLES Final Res ult * Complete Echo (TTE) w/wo Imaging Agent, Strain, 3D, Bubble Study (12/06/2024 10:23 AM EDT) Anatomical Region Laterality Modality Ultrasound Historical Provider CV ECHO PROCEDURES Final Result * ECG 12 lead unit performed (11/21/2024 9:55 AM EDT) Laina Mcqueen MD ECG ORDERABLES Final Result from Last 3 Months Insurance MEDICARE Member Subscriber Plan / Payer (Ef fective 2024-Present) Name:Lang James Member ID:[id number] Relation to Subscriber:Self Name:Lang James Subscriber ID:[id number] Payer ID:[id number] Group ID:Not on file Type:Medicare Address: [facility] [place] [id number] [place] [phone] Advance Directives * Full Code (Latest Code Status on File) Date Activated Date Inactivated Comments 08/14/2024 9:56 AM 08/21/2024 6:28 PM Care Teams City Controller Relationship Specialty Start Date End Date Sacha Irizarry MD [address] [address] PCP - General Internal Medicine 07/29/24
--- OUTSIDE RECORDS SUMMARY | 2025-01-15 11:21 | XMS_ITS | Encounter Summary ---
Author Organization [facility] Address [address] [place] [address] Care Team Providers Care Tax Representative Name Role Phone Sacha Irizarry DO Primary Care Provider Sacha Irizarry DO Unavailable [phone] Bir Alva LPN Unavailable [phone] Amber Lopez RN Unavailable [phone] Encounter Details Date Type Department Care Team (Late st Contact Info) Description 07/23/2024 Orders Only [facility] [address] [facility] [address] [place] [address] Sacha Irizarry DO [address] [facility] [address] [place] [address] Bilateral leg edema; SOB (shortness [...] [address] [place] [address] Sacha Irizarry DO [address] [place] [address] documented as of this encounter Procedures Procedure [...] type documented in this encounter Care Teams Tax Representative Relationship Specialty Start Date End Date Sacha Irizarry DO [address] [place] [address] PCP - General Internal Medicine 09/27/22 Sacha Irizarry DO [address] [place] [address] PCP - ACO Reach 10/13/22 Bri Alva LPN [address] [place] [address] Licensed Practical Nurse Family Medicine 08/14/2408/15 Amber Lopez, [place] [address] [place] [id number] Registered Nurse Family Medicine 08/15/24 08/15/24 documented as of this encounter
--- NOTE | 2025-01-15 11:32 | XR_ITS ---
The [address] [address] Patient Name: EMMA ALVARENGA MRN: [id number] date: 1950 Sex: M Assigned Patient Location: [facility] Current Patient Location: [facility] Accession/Order Number: [id number] Exam Date: 01/15/2025 11:25 Report Date: 01/15/2025 12:11 At the request of: YUMIKO ABAD MD Procedure: XR chest 2V PA AND LATERAL CHEST: CLINICAL HISTORY: Dyspnea On Exertion COMPARISON: None Median sternotomy wires are present. There is no focal parenchymal consolidation, effusion or pneumothorax. The cardiac, hilar and mediastinal silhouettes are within normal limits. There is no vascular congestion. The visualized bony thorax is intact. There is subtle dextroscoliotic curvature as well as endplate spurring. XR/XR chest 2V IMPRESSION: NO ACUTE CARDIOPULMONARY ABNORMALITY. Impression dictated by: Beti Khoury M.D. 01/15/2025 12:11 PM Dictation Location: [place] [address] Electronically authenticated by: [id number] Y Date: 01/15/2025 12:11
--- OUTSIDE RECORDS SUMMARY | 2025-01-15 12:09 | XMS_ITS | CCD ---
Author Organization [facility] Care Team Providers Care Glue Maker Name Role Phone GREGORIO DENNIS Unavailable Unavailable [...] PALMER Attending Unavailable DENNIS IRIZARRY Attending Unavailable CELSO MONTANO Attending Unavailable CELSO MONTANO Referring Unavailable [...] Propensity to adverse reactions (disorder) 0 [facility] Repository (1 source) No Known Drug Allergies Drug allergy (disorder) [facility] Repository (1 source) Misc-Food; Translations: [Misc-Food] Food allergy (disorder) [facility] Repository Medications Current Medications Medication Drug Class(es) Dates Sig (Normalized) Sig (Original) acetaminophen 500 mg oral tablet (11 sources) Start: 08-21-2024 take 1 tablet by [...] 11/24/2024 Active atorvastatin 10 mg oral tablet (20 sources) HMG-CoA Reductase Inhibitor Start: 04-17-2024 End: [...] capsule (20 sources) Proton Pump Inhibitor Start: 12-18-19 take 1 capsule by mouth before mealtime omeprazole (PriLOSEC) [address] capsule Indications: Gastroesophageal reflux disease without esophagitis TAKE 1 CAPSULE (20 MG) BY MOUTH IN THE MORNING. TAKE BEFORE MEALS. 90 capsule 3 12/17/2024 Active Start: 10-26-2023 take 1 capsule by mo uth before mealtime omeprazole (PriLOSEC) [address] capsule Indications: Gastroesophageal reflux disease without esophagitis TAKE 1 CAPSULE (20 MG) BY MOUTH IN THE MORNING. TAKE BEFORE MEALS. 90 capsule 3 10/26/2023 Active 12 hr timolol 5 mg/ml ophthalmic solution (20 sources) beta-Adrenergic Cyndi Start: 07-05-2023 timolo l (Timoptic) 0.5 % ophthalmic solution 07/05/2023 Active [...] NOT RECUR] Onset: 01-08-2018 Episodic Cardiac dysrhythmias (13 sources) Atrial fibrillation; Translations: [Unspecified atrial fibrillation] Onset: 08-18-2024 11-02-2024 Chronic Congestive heart failure; nonhypertensive (6 sources) Acute diastolic heart failure; Translations: [Acute diastolic (congestive) heart failure] Onset: 09-11-2024 11-02-2024 Chronic Coronary atherosclerosis and other heart disease (4 sources) 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; Translations: [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] Onset: 08-14-2024 Chronic Deficiency and other anemia (2 sources) Anemia due to blood loss; Translations: [Iron deficiency anemia secondary to blood loss (chronic)] 11-02-2024 Chronic Disorders of lipid metabolism (20 sources) Hyperlipidemia, [...] NEOP SPERMATIC CORD] Onset: 01-18-2018 Episodic Other connective tissue disease (2 sources) Other specified soft tissue disorders; Translations: [Other specified soft tissue disorders] Onset: 11-21-2024 Episodic Other liver diseases (2 sources) Elevated [...] [Localized edema] 07-16-2024 Episodic Residual codes; unclassified (9 sources) History of maze procedure for atrial fibrillation; Translations: [Other specified postprocedural states] Onset: 11-02-2024 11-02-2024 Episodic Residual codes; unclassified (9 sources) H/O cardiac surgery; Translations: [Other specified postprocedural states] Onset: 11-02-2024 11-02-2024 Episodic Spondylosis; intervertebral disc disorders; other back [...] of aortocoronary bypass graft] Onset: 08-14-2024 Episodic Deficiency and other anemia (2 sources) Anemia, unspecified; Translations: [Anemia, unspecified] Onset: 08-29-2024 Episodic Other aftercare (2 sources) Encounter for follow-up examination after completed treatment for conditions other than malignant neoplasm; Translations: [Encounter for follow-up examination after completed treatment for conditions other than malignant neoplasm] Onset: 08-14-2024 Episodic Other circulatory disease (2 sources) Other hypotension; Translations: [Other hypotension] Onset: 09-11-2024 Episodic Other connective tissue disease (2 sources) Myalgia, unspecified site; Translations: [Myalgia, unspecified site] Onset: 08-29-2024 Episodic Other lower respiratory disease (2 sources) Dyspnea, unspecified; Translations: [Dyspnea, unspecified] Onset: 08-14-2024 Episodic Other nutritional; endocrine; and metabolic disorders (20 sources) Obesity; Translations: [Obesity, unspecified] Onset: 09-14-2023 Resolved: 11-02-2024 09-14-2023 Chronic Residual codes; unclassified (2 sources) Other specified postprocedural states; Translations: [Other specified postprocedural states] Onset: 09-11-2024 Episodic Residual codes; unclassified (2 sources) Pain, unspecified; Translations: [Pain, unspecified] Onset: 08-14-2024 Episodic Spondylosis; intervertebral disc disorders; other back problems (20 sources) Chronic neck pain; Translations: [Cervicalgia] Onset: 03-19-2017 09-14-2023 Episodic Unclassified (1 source) Pure hypercholesterolemia , unspecified; Translations: [Pure hypercholesterolemia , unspecified] Onset: 07-17-2017 Results Test Name Value Interpretation Reference Range Facility [facility] 12-27-[address] [address] Cardiac Rehab Report Signed Patient: EMMA JAMES MR#: [id number] : 1950 Acct:[id number] Age/Sex: 74 / M ADM Date: 12/13/24 Loc: CR Attending Dr: ARMIDA GUTIERREZ Ordering Physician: Laina Mcqueen M.D. Date of Service: 12/25/24 Procedure(s): ITP Accession Number(s): [id number] cc: [facility] Test Date: 2024-12-25 Pat Name: EMMA JAMES Department: Room: - Gender: Male General Accountant: : 1950 Requested By: LAINA MCQUEEN Order Number: [id number] Rob MD: ARMIDA GUTIERREZ M.D. Interpretive Statements Patient may continue cardiac rehab as outlined in the treatment plan. Electronically Signed On 12-27-2024 10:27:23 EDT by ARMIDA GUTIERREZ M.D. Dictated By: ARMIDA GUTIERREZ Signed By: 12/27/24 1027 12/27/24 1027 DD/ 0709 TD/TT: Infant Teacher: [facility] Radiology, Radiologez gill MD - 12/27/2024 [facility] [place] [id number] Cardiac Rehab Report Signed Patient: EMMA JAMES MR#: [id number] : 1950 Acct:[id number] Age/Sex: 74 / M ADM Date: 12/13/24 Loc: CR Attending Dr: ARMIDA GUTIERREZ Ordering Physician: Laina Mcqueen M.D. Date of Service: 12/25/24 Procedure(s): ITP Accession Number(s): [id number] cc: [facility] Test Date: 2024-12-25 Pat Name: EMMA JAMES Department: Room: - Gender: Male General Accountant: : 1950 Requested By: LAINA MCQUEEN Order Number: [id number] Rob MD: ARMIDA GUTIERREZ M.D. Interpretive Statements Patient may continue cardiac rehab as outlined in the treatment plan. Electronically Signed On 12-27-2024 10:27:23 EDT by ARMIDA GUTIERREZ M.D. Dictated By: ARMIDA GUTIERREZ Signed By: 12/27/24 1027 12/27/24 1027 DD/ 0709 TD/TT: Infant Teacher: [place] [address] Cardiac Rehab Report Signed Patient: EMMA JAMES MR#: [id number] : 1950 Acct:[id number] Age/Sex: 74 / M ADM Date: 12/13/24 Loc: CR Attending Dr: ARMIDA GUTIERREZ Ordering Physician: Laina Mcqueen M.D. Date of Service: 12/11/24 Procedure(s): ITP Accession Number(s): [id number] cc: [facility] Test Date: 2024-12-11 Pat Name: EMMA JAMES Department: Room: - Gender: Male General Accountant: : 1950 Requested By: LAINA MCQUEEN Order Number: [id number] Rob MD: ARMIDA GUTIERREZ M.D. Interpretive Statements Patient may continue cardiac rehab as outlined in the treatment plan. Electronically Signed On 12-27-2024 10:19:41 EDT by ARMIDA GUTIERREZ M.D. Dictated By: ARMIDA GUTIERREZ Signed By: 12/27/24 1019 12/27/24 1019 DD/ 1122 TD/TT: Infant Teacher: [facility] Jennifer Fitzpatrick MD - 12/27/2024 [place] [address] Cardiac Rehab Report Signed Patient: EMMA JAMES MR#: [id number] : 1950 Acct:[id number] Age/Sex: 74 / M ADM Date: 12/13/24 Loc: CR Attending Dr: ARMIDA GUTIERREZ Ordering Physician: Laina Mcqueen M.D. Date of Service: 12/11/24 Procedure(s): ITP Accession Number(s): [id number] cc: [facility] Test Date: 2024-12-11 Pat Name: EMMA JAMES Department: Room: - Gender: Male General Accountant: : 1950 Requested By: LAINA MCQUEEN Order Number: [id number] Reading MD: ARMIDA GUTIERREZ M.D. Interpretive Statements Patient may continue cardiac rehab as outlined in the treatment plan. Electronically Signed On 12-27-2024 10:19:41 EDT by ARMIDA GUTIERREZ M.D. Dictated By: ARMIDA GUTIERREZ Signed By: 12/27/24 1019 12/27/24 1019 DD/ 1122 TD/TT: Infant Teacher: [facility] ITPOrdered By: Radiologist R adiology on 12-27-2024 [facility] Work Phone: [facility] Work Phone: ITPon 12-25-2024 Radiology Study observation (narrative) [facility] Healthcare 36on 12-18-2024 36 called back aga in and I gave her result of echo per Dr. Mcqueen. I then forwarded her to [facility] scheduling to get PFT's set up. Normal [facility] ITPon 12-11-2024 Radiology Study observation (narrative) [facility] Healthcare Orders Onlyon 12-09-2024 Orders Only Normal [facility] CA ECHO DOPPLER COMPLETEon 0 12-07-2024 [place] [address] Cardiology Report Signed Patient: EMMA JAMES MR#: [id number] : 1950 Acct:[id number] Age/Sex: 74 / M ADM Date: 12/06/24 Loc: CARD Attending Dr: Laina Mcqueen M.D. Ordering Physician: Laina Mcqueen M.D. Date of Service: 12/06/24 Procedure(s): CA echo doppler complete Accession Number(s): [id number] cc: Laina Mcqueen M.D.; DENNIS IRIZARRY Patient Name: EMMA JAMES MR#: [id number] : 1950 Exam Date: 12/06/2024 Ordering Doctor: DR LAINA MCQUEEN M.D. ECHOCARDIOGRAM REPORT PROCEDURE: CA ECHO DOPPLER [...] Area (VTI): 2.99 cm2, 2.99 cm2 Deceleration Burnet: Pressure Half-Time: Peak Velocity(Antegrade Flow): 1.33 m/s Peak Gradient(Antegrade Flow): 7.03 mm[Hg] Mean Velocity(Antegrade Flow): 0.89 m/s Mean Gradient(Antegrade Flow): 3.69 mm[Hg] Velocity Time Integral: 29.14 cm Tricuspid Valve Peak Velocity (Regurgitant Flow): 1.82 m/s, 2.00 m/s, 2.26 m/s Peak Velocity: Pulmonic Valve Mean Gradient: Mean Velocity: Peak Velocity: 1.17 m/s Peak Gradient: 5.52 mm[Hg] (more content not included)... [facility] Radiology, Radiologi MD jairo - 12/07/2024 [place] [address] Cardiology Report Signed Patient: EMMA JAMES MR#: [id number] : 1950 Acct:[id number] Age/Sex: 74 / M ADM Date: 12/06/24 Loc: CARD Attending Dr: Laina Mcqueen M.D. Ordering Physician: Laina Mcqueen M.D. Date of Service: 12/06/24 Procedure(s): CA echo doppler complete Accession Number(s): [id number] cc: Laina Mcqueen M.D.; DENNIS IRIZARRY Patient Name: EMMA JAMES MR#: [id number] : 1950 Exam Date: 12/06/2024 Ordering Doctor: DR LAINA MCQUEEN M.D. ECHOCARDIOGRAM REPORT PROCEDURE: CA ECHO DOPPLER [...] Area (VTI): 2.99 cm2, 2.99 cm2 Deceleration Burnet: Pressure Half-Time: Peak Velocity(Antegrade Flow): 1.33 m/s [...] M.D. Signed By: 12/07/241824 DD/ 22 TD/TT: Infant Teacher: [facility] Radiology Study observation (narrative) [facility] CA ECHO DOPPLER COMPLETEOrde red By: Radiologist Radiology on 12-07-2024 [facility] Work Phone: ALL CBC WITH AUTO DIFFon BASOPHILS ABSOLUTE AUTO 0.1 [facility] Basophils/100 WBC (Bld) 0.9 % 0.2 - 2.0 % [facility] Eosinophils/100 WBC (Bld) 3.5 % 0.9 - 7.0 % [facility] Erythrocyte distribution width (RBC) [Ratio] 15.1 % High 11.0 - 15.0 % [facility] Hematocrit (Bld) [Volume fraction] 40.3 % Low 42.0 - 54.0 % [facility] Hemoglobin (Bld) [Mass/Vol] 12.4 g/dL Low 14.0 - 18.0 g/dL [facility] IMMATURE GRANULOCYTES ABS AUTO 0.03 [facility] Immature granulocytes/100 WBC (Bld) 0.6 % High 0.0 - 0.5 % [facility] Interpretation and review of laboratory results Abnormal [facility] LYMPHOCYTES ABSOLUTE AUTO 0.9 Low [facility] Lymphocytes/100 WBC (Bld) 17.3 % Low 20.5 - 60.0 % [facility] MCH (RBC) [Entitic mass] 24.2 pg Low 25.9 - 34.0 pg [facility] MCHC (RBC) [Mass/Vol] 30.8 g/dL 29.9 - 35.2 g/dL [facility] MCV (RBC) [Entitic vol] 78.7 fL Low 80.0 - 94.0 fL [facility] MONOCYTES ABSOLUTE AUTO 0.4 [facility] Monocytes/100 WBC (Bld) 7.9 % 1.7 - 12.0 % [facility] NEUTROPHILS ABSOLUTE AUTO 3.8 [facility] Neutrophils/100 WBC (Bld) 69.8 % 43.0 - 75.0 % [facility] Platelet mean volume (Bld) [Entitic vol] 10.1 fL 9.5 - 13.5 fL [facility] TBH EO # 0.2 [facility]H PLT 243 [facility] RBC 5.12 [facility] WBC 5.4 [facility] ITPon 11-14-2024 [place] [address] Cardiac Rehab Report Signed Patient: EMMA JAMES MR#: [id number] : 1950 Acct:[id number] Age/Sex: 74 / M ADM Date: 11/14/24 Loc: CR Attending Dr: ARMIDA GUTIERREZ Ordering Physician: Steve Albright D.O. Date of Service: 11/14/24 Procedure(s): ITP Accession Number(s): [id number] cc: [facility] Test Date: 2024-11-14 Pat Name: EMMA JAMES Department: Room: - Gender: Male General Accountant: : 1950 Requested By: Steve Albright Order Number: [id number] Rob MD: Steve Albright Interpretive Statements Though [...] 11/14/24 1534 11/14/24 1534 DD/ 0856 TD/TT: Infant Teacher: [facility] Radiology, Radiologi MD jairo - 11/14/2024 [place] [address] Cardiac Rehab Report Signed Patient: EMMA JAMES MR#: [id number] : 1950 Acct:[id number] Age/Sex: 74 / M ADM Date: 11/14/24 Loc: CR Attending Dr: ARMIDA GUTIERREZ Ordering Physician: Steve Albright D.O. Date of Service: 11/14/24 Procedure(s): ITP Accession Number(s): [id number] cc: [facility] Test Date: 2024-11-14 Pat Name: EMMA JAMES Department: Room: - Gender: Male General Accountant: : 1950 Requested By: Steve Albright Order Number: [id number] Rob MD: Steve Albright Interpretive Statements Though [...] 11/14/24 1534 11/14/24 1534 DD/ 0856 TD/TT: Infant Teacher: AB Montano Radiology Study observation (narrative) [facility] ITPOrdered By: Radiologist Jeff adiology on 11-14-2024 [facility] Work Phone: 36on 11-08-2024 36 [facility] ITPon 10-16-2024 [place] [address] Cardiac Rehab Report Signed Patient: EMMA JAMES MR#: [id number] : 1950 Acct:[id number] Age/Sex: 73 / M ADM Date: 10/16/24 Loc: CR Attending Dr: ARMIDA GUTIERREZ Ordering Physician: Steve Albright D.O. Date of Service: 10/16/24 Procedure(s): ITP Accession Number(s): [id number] cc: [facility] Test Date: 2024-10-16 Pat Name: EMMA JAMES Department: Room: - Gender: Male General Accountant: : 1950 Requested By: Steve Albright Order Number: [id number] Reading MD: Steve Albright Interpretive Statements Okay to continue with outlined treatment plan. Electronically Signed On 10-16-2024 9:16:57 EDT by Steve Albright Dictated By: Steve Albright D.O. Signed By: 10/16/24 0917 10/16/24 0917 DD/ 0715 TD/TT: Infant Teacher: [facility] Jennifer Fitzpatrick MD - 10/16/2024 [place] [address] Cardiac Rehab Report Signed Patient: EMMA JAMES MR#: [id number] : 1950 Acct:[id number] Age/Sex: 73 / M ADM Date: 10/16/24 Loc: CR Attending Dr: ARMIDA GUTIERREZ Ordering Physician: Steve Albright D.O. Date of Service: 10/16/24 Procedure(s): ITP Accession Number(s): [id number] cc: [facility] Test Date: 2024-10-16 Pat Name: EMMA JAMES Department: Room: - Gender: Male General Accountant: : 1950 Requested By: Steve Albright Order Number: [id number] Rob MD: Steve Albright Interpretive Statements Okay to continue with outlined treatment plan. Electronically Signed On 10-16-2024 9:16:57 EDT by Steve Albright Dictated By: Steve Albright D.O. Signed By: 10/16/2491610/16/24916 DD/ 4 TD/TT: Infant Teacher: [facility] Radiology Study observation (narrative) [facility] ITPOrdered By: Radiologist R adiology on 10-16-2024 [facility] Work Phone: 36on 09-25-2024 36 [facility] ITPon 09-23-2024 [place] [address] Cardiac Rehab Report Signed Patient: EMMA JAMES MR#: [id number] : 1950 Acct:[id number] Age/Sex: 73 / M ADM Date: 09/20/24 Loc: CR Attending Dr: ARMIDA GUTIERREZ Ordering Physician: Steve Albright D.O. Date of Service: 09/20/24 Procedure(s): ITP Accession Number(s): [id number] cc: [facility] Test Date: 2024-09-20 Pat Name: EMMA JAMES Department: Room: - Gender: Male General Accountant: : 1950 Requested By: Steve Albright Order Number: [id number] Rob MD: Steve Albright Interpretive Statements Okay to proceed with outlined treatment plan. Electronically Signed On 09-23-2024 13:37:01 EDT by Steve Albright Dictated By: Steve Albright D.O. Signed By: 09/23/24133609/23/241336 DD/ 1309 TD/TT: Infant Teacher: [facility] Jennifer Fitzpatrick MD - 09/23/2024 [place] [address] Cardiac Rehab Report Signed Patient: EMMA JAMES MR#: [id number] : 1950 Acct:[id number] Age/Sex: 73 / M ADM Date: 09/20/24 Loc: CR Attending Dr: ARMIDA GUTIERREZ Ordering Physician: Steve Albright D.O. Date of Service: 09/20/24 Procedure(s): ITP Accession Number(s): [id number] cc: [facility] Test Date: 2024-09-20 Pat Name: EMMA JAMES Department: Room: - Gender: Male General Accountant: : 1950 Requested By: Steve Albright Order Number: [id number] Reading MD: Steve Albright Interpretive Statements Okay to proceed with outlined treatment plan. Electronically Signed On 09-23-2024 13:37:01 EDT by Steve Albright Dictated By: Steve Albright D.O. Signed By: 09/23/24133609/23/241336 DD/ 1309 TD/TT: Infant Teacher: [place] [address] Cardiac Rehab Report Signed Patient: EMMA JAMES MR#: [id number] : 1950 Acct:[id number] Age/Sex: 73 / M ADM Date: 09/20/24 Loc: CR Attending Dr: ARMIDA GUTIERREZ Ordering Physician: Steve Albright D.O. Date of Service: 09/18/24 Procedure(s): ITP Accession Number(s): [id number] cc: [facility] Test Date: 2024-09-18 Pat Name: EMMA JAMES Department: Room: - Gender: Male General Accountant: : 1950 Requested By: Steve Albright Order Number: [id number] Reading MD: Steve Albright Interpretive Statements Okay to proceed with outlined treatment plan. Electronically Signed On 09-23-2024 13:37:19 EDT by Steve Albright Dictated By: Steve Albright D.O. Signed By: 09/23/247 09/23/241336 DD/ 130 TD/TT: Infant Teacher: [facility] Radiology, Radiologi MD jairo - 09/23/2024 [place] [address] Cardiac Rehab Report Signed Patient: EMMA JAMES MR#: [id number] : 1950 Acct:[id number] Age/Sex: 73 / M ADM Date: 09/20/24 Loc: CR Attending Dr: ARMIDA GUTIERREZ Ordering Physician: Steve Albright D.O. Date of Service: 09/18/24 Procedure(s): ITP Accession Number(s): [id number] cc: [facility] Test Date: 2024-09-18 Pat Name: EMMA JAMES Department: Room: - Gender: Male General Accountant: : 1950 Requested By: Steve Albright Order Number: [id number] Rob MD: Steve Albright Interpretive Statements Okay to proceed with outlined treatment plan. Electronically Signed On 09-23-2024 13:37:19 EDT by Steve Albright Dictated By: Steve Albright D.O. Signed By: 09/23/247 09/23/241336 DD/ 130 TD/TT: Infant Teacher: [facility] No Panel InformationOrdered By: Radiologist Radiology on 09-23-2024 [facility] Work Phone: ITPon 09-20-2024 Radiology Study observation (narrative) [facility] ITPon 09-18-2024 Radiology Study observation (narrative) [facility] ALL CBC WITH AUTO DIFFon BASOPHILS ABSOLUTE AUTO 0 [facility] Basophils/100 WBC (Bld) 0.7 % 0.2 - 2.0 % [facility] Eosinophils/100 WBC (Bld) 3.7 % 0.9 - 7.0 % [facility] Erythrocyte distribution width (RBC) [Ratio] 13.1 % 11.0 - 15.0 % [facility] Hematocrit (Bld) [Volume fraction] 35.7 % Low 42.0 - 54.0 % [facility] Hemoglobin (Bld) [Mass/Vol] 11.2 g/dL Low 14.0 - 18.0 g/dL [facility] IMMATURE GRANULOCYTES ABS AUTO 0.02 [facility] Immature granulocytes/100 WBC (Bld) 0.4 % 0.0 - 0.5 % [facility] Interpretation and review of laboratory results Abnormal [facility] LYMPHOCYTES ABSOLUTE AUTO 1 Low [facility] Lymphocytes/100 WBC (Bld) 18 % Low 20.5 - 60.0 % [facility] MCH (RBC) [Entitic mass] 28.9 pg 25.9 - 34.0 pg [facility] MCHC (RBC) [Mass/Vol] 31.4 g/dL 29.9 - 35.2 g/dL [facility] MCV (RBC) [Entitic vol] 92.2 fL 80.0 - 94.0 fL [facility] MONOCYTES ABSOLUTE AUTO 0.5 [facility] Monocytes/100 WBC (Bld) 9.3 % 1.7 - 12.0 % [facility] NEUTROPHILS ABSOLUTE AUTO 3.9 [facility] Neutrophils/100 WBC (Bld) 67.9 % 43.0 - 75.0 % [facility] Platelet mean volume (Bld) [Entitic vol] 9.9 fL 9.5 - 13.5 fL [facility] TBH EO # 0.2 [facility] PLT 337 [facility] TB RBC 3.87 Low [facility] TB WBC 5.7 [facility] Telemedicineon 09-05-2024 Telemedicine Normal [facility] Basic metabolic 1998 panelon 09-02-2024 Calcium [Mass/Vol] 9.7 mg/dL 8.6 - 10. 2 mg/dL [facility] Chloride [Moles/Vol] 100 mmol/L 96 - 10 6 mmol/L [facility] CO2 [Moles/Vol] 29 mmol/L 20 - 29 mmol/L [facility] Creatinine [Mass/Vol] 1.01 mg/dL 0.76 - 1.27 [...] [Mass/Vol] 19 mg/dL 8 - 27 mg/dL [facility] Urea nitrogen/Creatinine [Mass ratio] 19 mg/mg 10 - 24 [facility] Performed at: 01 - L [facility] [address], [address], [place], [place] [id number] Cutter And Presser: Johana Ireland MD, Phone: [phone] [facility] Healthcare 36on 08-30-2024 36 Normal [facility] CBC WITH AUTO DIFFERENTIALon 08-29-2024 Basophils (Bld) [#/Vol] 0.06 10*3/uL Normal 0.00-0.20 [facility] Comment on above: Performed By: #### L [id number] ####[facility] (BEAKER)[address] [place] [address] Basophils/100 WBC (Bld) 0.5 % Normal 0.0-1.0 [facility] Comment on above: Performed By: #### L [id number] ####[facility] (BEAKER)[address] [place] [address] Eosinophils (Bld) [#/Vol] 0.11 10*3/uL Normal 0.00-0.50 [facility] Comment on above: Performed By: #### L [id number] ####[facility] (BEAKER)[address] [place] [address] Eosinophils/100 WBC (Bld) 1.0 % Normal 0.0-6.0 [facility] Comment on above: Performed By: #### L [id number] ####[facility] ([facility])[address] [place] [address] Erythrocyte distribution width (RBC) [Ratio] 14.3 % Normal 11.5-15.0 [facility] Comment on above: Performed By: #### L [id number] ####[facility] ([facility])[address] [place] [address] ERYTHROCYTE MEAN CORPUSCULAR HEMOGLOBIN CONCENTRATION (G/DL) BY AUTOMATED 30.9 g/dL Low 32.0-35.0 [facility] Comment on above: Performed By: #### L [id number] ####[facility] ([facility])[address] [place] [address] Hematocrit (Bld) [Volume fraction] 33.3 % Low 39.0-50.0 [facility] Comment on above: Performed By: #### L [id number] ####[facility] ([facility])[address] [place] [address] Hemoglobin (Bld) [Mass/Vol] 10.3 g/dL Low 13.0-17.0 [facility] Comment on above: Performed By: #### L [id number] ####[facility] ([facility])[address] [place] [address] Immature granulocytes (Bld) [#/Vol] 0.19 10*3/uL Normal 0.00-0.20 [facility] Comment on above: Performed By: #### L [id number] ####[facility] ([facility])[address] [place] [address] Immature granulocytes/100 WBC (Bld) 1.7 % High 0.0-1.0 [facility] Comment on above: Performed By: #### L [id number] ####[facility] (BEAKER)[address] [place] [address] Lymphocytes (Bld) [#/Vol] 0.86 10*3/uL Low 1.20-4.00 [facility] Comment on above: Performed By: #### L [id number] ####[facility] (BEAKER)[address] [place] [address] Lymphocytes/100 WBC (Bld) 7.8 % Low 20.0-45.0 [facility] Comment on above: Performed By: #### L [id number] ####[facility] (BEAKER)[address] [place] [address] MCH (RBC) [Entitic mass] 29.9 pg Normal 27.0-33.0 [facility] Comment on above: Performed By: #### L [id number] ####[facility] (BEAKER)[address] [place] [address] MCV (RBC) [Entitic vol] 96.5 fL Normal 82.0-98.0 [facility] Comment on above: Performed By: #### L [id number] ####[facility] (BEAKER)[address] [place] [address] Monocytes (Bld) [#/Vol] 0.83 10*3/uL Normal 0.10-1.00 [facility] Comment on above: Performed By: #### L [id number] ####[facility] (BEAKER)[address] [place] [address] Monocytes/100 WBC (Bld) 7.5 % Normal 5.0-12.0 [facility] Comment on above: Performed By: #### L [id number] ####[facility] (BEAKER)[address] [place] [address] Neutrophils (Bld) [#/Vol] 9.04 10*3/uL High 1.60-7.60 [facility] Comment on above: Performed By: #### L [id number] ####[facility] (BEAKER)[address] [place] [address] Neutrophils/100 WBC (Bld) 81.5 % High 40.0-72.0 [facility] Comment on above: Performed By: #### L [id number] ####[facility] (BEAKER)[address] [place] [address] NRBC (PER 100 WBCS) BY AUTOMATED COUNT 0.0 % Normal 0 [facility] Comment on above: Performed By: #### L [id number] ####[facility] ([facility])[address] [place] [address] PLATELETS (10*3/UL) IN BLOOD AUTOMATED COUNT 633 10*3/uL High 150-400 [facility] Comment on above: Performed By: #### L [id number] ####[facility] ([facility])[address] [place] [address] RBC (Bld) [#/Vol] 3.45 10*6/uL Low 4.20-5.70 [facility] Comment on above: Performed By: #### L [id number] ####[facility] ([facility])[address] [place] [address] WBC (Bld) [#/Vol] 11.09 10*3/uL High 4.00-10.60 [facility] Comment on above: Performed By: #### L [id number] ####[facility] ([facility])[address] [place] [address] COMPREHENSIVE METABOLIC PANE Brice 08-29-2024 Albumin [Mass/Vol] 4.1 g/dL Normal 3.5-5.7 [facility] Comment on above: Performed By: #### L [id number] ####[facility] ([facility])[address] [place] [address] ALP [Catalytic activity/Vol] 158 U/L High 34-104 [facility] Comment on above: Performed By: #### L [id number] ####[facility] ([facility])[address] [place] [address] ALT [Catalytic activity/Vol] 57 U/L High 7-52 [facility] Comment on above: Performed By: #### L [id number] ####[facility] ([facility])[address] [place] [address] Anion gap [Moles/Vol] 9 mmol/L Normal 7-20 [facility] Comment on above: Performed By: #### L [id number] ####[facility] ([facility])[address] [place] [address] AST [Catalytic activity/Vol] 32 U/L Normal 13-39 [facility] Comment on above: Performed By: #### L [id number] ####[facility] ([facility])[address] [place] [address] Bilirubin [Mass/Vol] 0.8 mg/dL Normal 0.3-1.0 [facility] Comment on above: Performed By: #### L [id number] ####[facility] ([facility])[address] [place] [address] Calcium [Mass/Vol] 9.2 mg/dL Normal 8.6-10.3 [facility] Comment on above: Performed By: #### L [id number] ####[facility] ([facility])[address] [place] [address] Chloride [Moles/Vol] 99 mmol/L Normal 98-107 [facility] Comment on above: Performed By: #### L [id number] ####[facility] ([facility])[address] [place] [address] CO2 [Moles/Vol] 33 mmol/L High 21-31 [facility] Comment on above: Performed By: #### L [id number] ####[facility] ([facility])[address] [place] [address] Creatinine [Mass/Vol] 1.10 mg/dL Normal 0.70-1.30 [facility] Comment on above: Performed By: #### L [id number] ####[facility] ([facility])[address] [place] [address] GLOMERULAR FILTRATION RATE ML/MIN/1.73 SQ M.PREDICTED 70.4 mL/min/1.73m*2 Normal >60.0 [facility] Comment on above: Result Comment: [facility]???s estimated glomerular filtration rate (eGFR) will no [...] individuals. Performed By: #### L [id number] ####[facility] ([facility])[address] [place] [address] Glucose [Mass/Vol] 90 mg/dL Normal 70-100 [facility] Comment on above: Performed By: #### L [id number] ####[facility] [place] [address] Potassium [Moles/Vol] 3.8 mmol/L Normal 3.5-5.1 [facility] Comment on above: Performed By: #### L [id number] ####[facility] ([facility])[address] [place] [address] Protein [Mass/Vol] 7.4 g/dL Normal 6.0-8.3 [facility] Comment on above: Performed By: #### L [id number] ####[facility] [place] [address] Sodium [Moles/Vol] 137 mmol/L Normal 136-145 [facility] Comment on above: Performed By: #### L [id number] ####[facility] (BEAKER)[address] [place] [address] Urea nitrogen [Mass/Vol] 20 mg/dL Normal 7-25 [facility] Comment on above: Performed By: #### L [id number] ####[facility] (BEAKER)[address] [place] [address] UREA NITROGEN/CREATININE (MASS RATIO) IN SER/PLAS 18.2 Normal [facility] Comment on above: Performed By: #### L [id number] ####[facility] (BEAKER)[address] [address] Labon 08-29-2024 Lab [facility] MAGNESIUMon 08-29-2024 Magnesium [Mass/Vol] 2.3 mg/dL Normal 1.9-2.7 [facility] Comment on above: Performed By: #### L [id number] ####[facility] ([facility])[address] [place] [address] 36on 08-28-2024 36 LVM with call back n mary with appointment details 08/29/2024 @ 1:00pm with labs and xray to be completed prior. Patient called back and confirmed details. [facility] Telephoneon 08-28-2024 Telephone [facility] 36on 08-22-2024 36 [facility] 36 [facility] Telephoneon 08-22-2024 Telephone [facility] 30on 08-21-2024 30 [facility] 30 [facility] 30 [facility] BASIC METABOLIC PANELon 04-0 Anion gap [Moles/Vol] 9 mmol/L Normal 7-20 [facility] Comment on above: Performed By: #### L [id number] ####[facility] ([facility])[address] [place] [address] Calcium [Mass/Vol] 7.8 mg/dL Low 8.6-10.3 [facility] Comment on above: Performed By: #### L [id number] ####[facility] (BEAKER)[address] [place] [address] Chloride [Moles/Vol] 101 mmol/L Normal 98-107 [facility] Comment on above: Performed By: #### L [id number] ####[facility] (BEAKER)[address] [place] [address] CO2 [Moles/Vol] 29 mmol/L Normal 21-31 [facility] Comment on above: Performed By: #### L [id number] ####[facility] ([facility] [place] [address] Creatinine [Mass/Vol] 0.66 mg/dL Low 0.70-1.30 [facility] Comment on above: Performed By: #### L [id number] ####[facility] ([facility])[address] [place] [address] GLOMERULAR FILTRATION RATE ML/MIN/1.73 SQ M.PREDICTED 98.4 mL/min/1.73m*2 Normal >60.0 [facility] Comment on above: Result Comment: [facility]???s estimated glomerular filtration rate (eGFR) will no [...] individuals. Performed By: #### L [id number] ####[facility] ([facility])[address] [place] [address] Glucose [Mass/Vol] 90 mg/dL Normal 70-100 [facility] Comment on above: Performed By: #### L [id number] ####[facility] ([facility])[address] [place] [address] Potassium [Moles/Vol] 3.5 mmol/L Normal 3.5-5.1 [facility] Comment on above: Performed By: #### L [id number] ####[facility] ([facility])[address] [place] [address] Sodium [Moles/Vol] 135 mmol/L Low 136-145 [facility] Comment on above: Performed By: #### L [id number] ####[facility] ([facility] [place] [address] Urea nitrogen [Mass/Vol] 20 mg/dL Normal 7-25 [facility] Comment on above: Performed By: #### L [id number] ####[facility] ([facility])[address] [place] [address] UREA NITROGEN/CREATININE (MASS RATIO) IN SER/PLAS 30.3 Normal [facility] Comment on above: Performed By: #### L [id number] ####[facility] ([facility])[address] [place] [address] CBCon 08-21-2024 Erythrocyte distribution width (RBC) [Ratio] 13.7 % Normal 11.5-15.0 [facility] Comment on above: Performed By: #### L [id number] ####[facility] ([facility])[address] [place] [address] ERYTHROCYTE MEAN CORPUSCULAR HEMOGLOBIN CONCENTRATION (G/DL) BY AUTOMATED 32.8 g/dL Normal 32.0-35.0 [facility] Comment on above: Performed By: #### L [id number] ####[facility] ([facility])[address] [place] [address] Hematocrit (Bld) [Volume fraction] 24.7 % Low 39.0-50.0 [facility] Comment on above: Performed By: #### L [id number] ####[facility] ([facility])[address] [place] [address] Hemoglobin (Bld) [Mass/Vol] 8.1 g/dL Low 13.0-17.0 [facility] Comment on above: Performed By: #### L [id number] ####[facility] ([facility])[address] [place] [address] MCH (RBC) [Entitic mass] 30.2 pg Normal 27.0-33.0 [facility] Comment on above: Performed By: #### L [id number] ####[facility] ([facility] [place] [address] MCV (RBC) [Entitic vol] 92.2 fL Normal 82.0-98.0 [facility] Comment on above: Performed By: #### L [id number] ####[facility] ([facility] [place] [address] PLATELETS (10*3/UL) IN BLOOD AUTOMATED COUNT 217 10*3/uL Normal 150-400 [facility] Comment on above: Performed By: #### L [id number] ####[facility] ([facility])[address] [place] [address] RBC (Bld) [#/Vol] 2.68 10*6/uL Low 4.20-5.70 [facility] Comment on above: Performed By: #### L [id number] ####[facility] ([facility])[address] [place] [address] WBC (Bld) [#/Vol] 8.53 10*3/uL Normal 4.00-10.60 [facility] Comment on above: Performed By: #### L [id number] ####[facility] ([facility])[address] [place] [address] DSon 08-21-2024 DS Normal [facility] Letter (Out)on 08-21-2024 Letter (Out) Normal [facility] MAGNESIUMon 08-21-2024 Magnesium [Mass/Vol] 1.9 mg/dL Normal 1.9-2.7 [facility] Comment on above: Performed By: #### L [id number] ####[facility] ([facility])[address] [place] [address] NURSNOTEon 08-21-2024 NURSNOTE Normal [facility] NURSNOTE Normal [facility] POCT GLUCOSE METER UNSOLICIT ED RESULTSon 08-21-2024 Glucose [Mass/Vol] 110 mg/dL High 70-105 [facility] Comment on above: Order Comment: Waive d Testing in the ED is performed under the ED CLIA certificate #[id number]. Result Comment: [email or web address] Performed By: #### L [id number] ####[facility] ([facility])[address] [place] [address] Glucose [Mass/Vol] 97 mg/dL Normal 70-105 [facility] Comment on above: Order Comment: Waive d Testing in the ED is performed under the ED CLIA certificate #[id number]. Result Comment: [email or web address] Performed By: #### L [id number] ####[facility] (BEAKER)[address] [place] [address] BASIC METABOLIC PANELon 04-0 Anion gap [Moles/Vol] 8 mmol/L Normal 7-20 [facility] Comment on above: Performed By: #### L [id number] ####[facility] (BEAKER)[address] [place] [address] Calcium [Mass/Vol] 7.9 mg/dL Low 8.6-10.3 [facility] Comment on above: Performed By: #### L [id number] ####[facility] (BEAKER)[address] [place] [address] Chloride [Moles/Vol] 99 mmol/L Normal 98-107 [facility] Comment on above: Performed By: #### L [id number] ####[facility] (BEAKER)[address] [place] [address] CO2 [Moles/Vol] 32 mmol/L High 21-31 [facility] Comment on above: Performed By: #### L [id number] ####[facility] (BEAKER)[address] [place] [address] Creatinine [Mass/Vol] 0.75 mg/dL Normal 0.70-1.30 [facility] Comment on above: Performed By: #### L [id number] ####[facility] (BEAKER)[address] [place] [address] GLOMERULAR FILTRATION RATE ML/MIN/1.73 SQ M.PREDICTED 94.7 mL/min/1.73m*2 Normal >60.0 [facility] Comment on above: Result Comment: [facility]???s estimated glomerular filtration rate (eGFR) will no [...] individuals. Performed By: #### L [id number] ####[facility] ([facility])[address] [place] [address] Glucose [Mass/Vol] 108 mg/dL High 70-100 [facility] Comment on above: Performed By: #### L [id number] ####[facility] ([facility])[address] [place] [address] Potassium [Moles/Vol] 3.7 mmol/L Normal 3.5-5.1 [facility] Comment on above: Performed By: #### L [id number] ####[facility] ([facility])[address] [place] [address] Sodium [Moles/Vol] 135 mmol/L Low 136-145 [facility] Comment on above: Performed By: #### L [id number] ####[facility] ([facility])[address] [place] [address] Urea nitrogen [Mass/Vol] 26 mg/dL High 7-25 [facility] Comment on above: Performed By: #### L [id number] ####[facility] ([facility])[address] [place] [address] UREA NITROGEN/CREATININE (MASS RATIO) IN SER/PLAS 34.7 Normal [facility] Comment on above: Performed By: #### L [id number] ####[facility] ([facility])[address] [facility] [place] [address] CBCon 08-20-2024 Erythrocyte distribution width (RBC) [Ratio] 13.5 % Normal 11.5-15.0 [facility] Comment on above: Performed By: #### L [id number] ####[facility] (BEAKER)[address] [place] [address] ERYTHROCYTE MEAN CORPUSCULAR HEMOGLOBIN CONCENTRATION (G/DL) BY AUTOMATED 33.3 g/dL Normal 32.0-35.0 [facility] Comment on above: Performed By: #### L [id number] ####[facility] (BEAKER)[address] [place] [address] Hematocrit (Bld) [Volume fraction] 23.4 % Low 39.0-50.0 [facility] Comment on above: Performed By: #### L [id number] ####[facility] (BEAKER)[address] [place] [address] Hemoglobin (Bld) [Mass/Vol] 7.8 g/dL Low 13.0-17.0 [facility] Comment on above: Performed By: #### L [id number] ####[facility] (BEAKER)[address] [place] [address] IMMATURE PLATELET FRACTION % 5.3 % Normal 0.8-6.3 [facility] Comment on above: Performed By: #### L [id number] ####[facility] (BEAKER)[address] [place] [address] MCH (RBC) [Entitic mass] 30.6 pg Normal 27.0-33.0 [facility] Comment on above: Performed By: #### L [id number] ####[facility] (BEAKER)[address] [place] [address] MCV (RBC) [Entitic vol] 91.8 fL Normal 82.0-98.0 [facility] Comment on above: Performed By: #### L [id number] ####[facility] (BEAKER)[address] [place] [address] PLATELETS (10*3/UL) IN BLOOD AUTOMATED COUNT 141 10*3/uL Low 150-400 [facility] Comment on above: Performed By: #### L [id number] ####[facility] (BEAKER)[address] [place] [address] RBC (Bld) [#/Vol] 2.55 10*6/uL Low 4.20-5.70 [facility] Comment on above: Performed By: #### L [id number] ####[facility] ([facility])[address] [place] [address] WBC (Bld) [#/Vol] 9.47 10*3/uL Normal 4.00-10.60 [facility] Comment on above: Performed By: #### L [id number] ####[facility] ([facility])[address] [place] [address] MAGNESIUMon 08-20-2024 Magnesium [Mass/Vol] 2.1 mg/dL Normal 1.9-2.7 [facility] Comment on above: Performed By: #### L [id number] ####[facility] ([facility])[address] [place] [address] POCT GLUCOSE METER UNSOLICIT ED RESULTSon 08-20-2024 Glucose [Mass/Vol] 103 mg/dL Normal 70-105 [facility] Comment on above: Order Comment: Waive d Testing in the ED is performed under the ED CLIA certificate #[id number]. Result Comment: [email or web address] Performed By: #### L [id number] ####[facility] ([facility])[address] [place] [address] Glucose [Mass/Vol] 113 mg/dL High 70-105 [facility] Comment on above: Order Comment: Waive d Testing in the ED is performed under the ED CLIA certificate #[id number]. Result Comment: [email or web address] tz Performed By: #### L [id number] ####[facility] ([facility])[address] [place] [address] Glucose [Mass/Vol] 161 mg/dL High 70-105 [facility] Comment on above: Order Comment: Waive d Testing in the ED is performed under the ED CLIA certificate #[id number]. Result Comment: [email or web address] tz Performed By: #### L [id number] ####[facility] ([facility] [place] [address] Glucose [Mass/Vol] 122 mg/dL High 70-105 [facility] Comment on above: Order Comment: Waive d Testing in the ED is performed under the ED CLIA certificate #[id number]. Result Comment: [email or web address] tz Performed By: #### L [id number] ####[facility] (BEAKER)[address] [place] [address] 30on 08-19-2024 30 Normal [facility] 30 Normal [facility] 30 Normal [facility] BASIC METABOLIC PANELon - Anion gap [Moles/Vol] 8 mmol/L Normal 7-20 [facility] Comment on above: Performed By: #### L [id number] ####[facility] ([facility] [place] [address] Calcium [Mass/Vol] 8.1 mg/dL Low 8.6-10.3 [facility] Comment on above: Performed By: #### L [id number] ####[facility] (BEAKER)[address] [place] [address] Chloride [Moles/Vol] 99 mmol/L Normal 98-107 [facility] Comment on above: Performed By: #### L [id number] ####[facility] (BEAKER)[address] [place] [address] CO2 [Moles/Vol] 31 mmol/L Normal 21-31 [facility] Comment on above: Performed By: #### L [id number] ####[facility] (BEAKER)[address] [place] [address] Creatinine [Mass/Vol] 0.81 mg/dL Normal 0.70-1.30 [facility] Comment on above: Performed By: #### L [id number] ####[facility] (BEAKER)[address] [place] [address] GLOMERULAR FILTRATION RATE ML/MIN/1.73 SQ M.PREDICTED 92.5 mL/min/1.73m*2 Normal >60.0 [facility] Comment on above: Result Comment: The [facility]???s estimated glomerular filtration rate (eGFR) will no [...] individuals. Performed By: #### L [id number] ####[facility] ([facility])[address] [place] [address] Glucose [Mass/Vol] 115 mg/dL High 70-100 [facility] Comment on above: Performed By: #### L [id number] ####[facility] ([facility])[address] [place] [address] Potassium [Moles/Vol] 3.9 mmol/L Normal 3.5-5.1 [facility] Comment on above: Performed By: #### L [id number] ####[facility] ([facility])[address] [place] [address] Sodium [Moles/Vol] 134 mmol/L Low 136-145 [facility] Comment on above: Performed By: #### L [id number] ####[facility] (BEAKER)[address] [place] [address] Urea nitrogen [Mass/Vol] 28 mg/dL High 7-25 [facility] Comment on above: Performed By: #### L [id number] ####[facility] ([facility] [place] [address] UREA NITROGEN/CREATININE (MASS RATIO) IN SER/PLAS 34.6 Normal [facility] Comment on above: Performed By: #### L [id number] ####[facility] (BEAKER)[address] [place] [address] Anion gap [Moles/Vol] 8 mmol/L Normal 7-20 [facility] Comment on above: Performed By: #### L [id number] ####[facility] (BEAKER)[address] [place] [address] Calcium [Mass/Vol] 8.0 mg/dL Low 8.6-10.3 [facility] Comment on above: Performed By: #### L [id number] ####[facility] ([facility] [place] [address] Chloride [Moles/Vol] 101 mmol/L Normal 98-107 [facility] Comment on above: Performed By: #### L [id number] ####[facility] ([facility] [place] [address] CO2 [Moles/Vol] 29 mmol/L Normal 21-31 [facility] Comment on above: Performed By: #### L [id number] ####[facility] ([facility] [place] [address] Creatinine [Mass/Vol] 0.76 mg/dL Normal 0.70-1.30 [facility] Comment on above: Performed By: #### L [id number] ####[facility] ([facility])[address] [place] [address] GLOMERULAR FILTRATION RATE ML/MIN/1.73 SQ M.PREDICTED 94.3 mL/min/1.73m*2 Normal >60.0 [facility] Comment on above: Result Comment: The [facility]???s estimated glomerular filtration rate (eGFR) will no [...] individuals. Performed By: #### L [id number] ####[facility] ([facility] [place] [address] Glucose [Mass/Vol] 116 mg/dL High 70-100 [facility] Comment on above: Performed By: #### L [id number] ####[facility] ([facility])[address] [place] [address] Potassium [Moles/Vol] 4.1 mmol/L Normal 3.5-5.1 [facility] Comment on above: Performed By: #### L [id number] ####[facility] ([facility])[address] [place] [address] Sodium [Moles/Vol] 134 mmol/L Low 136-145 [facility] Comment on above: Performed By: #### L [id number] ####[facility] ([facility])[address] [place] [address] Urea nitrogen [Mass/Vol] 26 mg/dL High 7-25 [facility] Comment on above: Performed By: #### L [id number] ####[facility] ([facility])[address] [place] [address] UREA NITROGEN/CREATININE (MASS RATIO) IN SER/PLAS 34.2 Normal [facility] Comment on above: Performed By: #### L [id number] ####[facility] ([facility])[address] [place] [address] CBCon 08-19-2024 Erythrocyte distribution width (RBC) [Ratio] 13.3 % Normal 11.5-15.0 [facility] Comment on above: Performed By: #### L [id number] ####[facility] ([facility])[address] [place] [address] ERYTHROCYTE MEAN CORPUSCULAR HEMOGLOBIN CONCENTRATION (G/DL) BY AUTOMATED 32.5 g/dL Normal 32.0-35.0 [facility] Comment on above: Performed By: #### L [id number] ####[facility] ([facility])[address] [place] [address] Hematocrit (Bld) [Volume fraction] 26.5 % Low 39.0-50.0 [facility] Comment on above: Performed By: #### L [id number] ####[facility] ([facility])[address] [place] [address] Hemoglobin (Bld) [Mass/Vol] 8.6 g/dL Low 13.0-17.0 [facility] Comment on above: Performed By: #### L [id number] ####[facility] ([facility])[address] [place], [place] [address] IMMATURE PLATELET FRACTION % 5.6 % Normal 0.8-6.3 [facility] Comment on above: Performed By: #### L [id number] ####[facility] ([facility])[address] [place] [address] MCH (RBC) [Entitic mass] 30.4 pg Normal 27.0-33.0 [facility] Comment on above: Performed By: #### L [id number] ####[facility] ([facility] [place], [place] [address] MCV (RBC) [Entitic vol] 93.6 fL Normal 82.0-98.0 [facility] Comment on above: Performed By: #### L [id number] ####[facility] ([facility] [address] PLATELETS (10*3/UL) IN BLOOD AUTOMATED COUNT 128 10*3/uL Low 150-400 [facility] Comment on above: Performed By: #### L [id number] ####[facility] ([facility])[address] [place] [address] RBC (Bld) [#/Vol] 2.83 10*6/uL Low 4.20-5.70 [facility] Comment on above: Performed By: #### L [id number] ####[facility] ([facility])[address] [place], [place] [address] WBC (Bld) [#/Vol] 12.06 10*3/uL High 4.00-10.60 [facility] Comment on above: Performed By: #### L [id number] ####[facility] ([facility] [place] [address] CONSULTon 08-19-2024 CONSULT Normal [facility] MAGNESIUMon 08-19-2024 Magnesium [Mass/Vol] 2.1 mg/dL Normal 1.9-2.7 [facility] Comment on above: Performed By: #### L [id number] ####[facility] ([facility])[address] [place] [address] Magnesium [Mass/Vol] 2.2 mg/dL Normal 1.9-2.7 [facility] Comment on above: Performed By: #### L [id number] ####[facility] ([facility])[address] [place] [address] POCT GLUCOSE METER UNSOLICIT ED RESULTSon 08-19-2024 Glucose [Mass/Vol] 168 mg/dL High 70-105 [facility] Comment on above: Order Comment: Waive d Testing in the ED is performed under the ED CLIA certificate #[id number]. Result Comment: [email or web address] Performed By: #### L [id number] ####[facility] ([facility])[address] [place] [address] Glucose [Mass/Vol] 125 mg/dL High 70-105 [facility] Comment on above: Order Comment: Waive d Testing in the ED is performed under the ED CLIA certificate #[id number]. Result Comment: [email or web address] Performed By: #### L [id number] ####[facility] ([facility])[address] [place] [address] Glucose [Mass/Vol] 136 mg/dL High 70-105 [facility] Comment on above: Order Comment: Waive d Testing in the ED is performed under the ED CLIA certificate #[id number]. Result Comment: [email or web address] Performed By: #### L [id number] ####[facility] ([facility])[address] [place] [address] 30on 08-18-2024 30 Normal [facility] 30 Normal [facility] BASIC METABOLIC PANELon 03-3 0-2025 Anion gap [Moles/Vol] 9 mmol/L Normal 7-20 [facility] Comment on above: Performed By: #### L [id number] ####[facility] ([facility])[address] [place] [address] Calcium [Mass/Vol] 8.2 mg/dL Low 8.6-10.3 [facility] Comment on above: Performed By: #### L [id number] ####[facility] ([facility])[address] [place] [address] Chloride [Moles/Vol] 102 mmol/L Normal 98-107 [facility] Comment on above: Performed By: #### L [id number] ####[facility] ([facility])[address] [place] [address] CO2 [Moles/Vol] 29 mmol/L Normal 21-31 [facility] Comment on above: Performed By: #### L [id number] ####[facility] ([facility])[address] [place] [address] Creatinine [Mass/Vol] 1.09 mg/dL Normal 0.70-1.30 [facility] Comment on above: Performed By: #### L [id number] ####[facility] ([facility])[address] [place] [address] GLOMERULAR FILTRATION RATE ML/MIN/1.73 SQ M.PREDICTED 71.2 mL/min/1.73m*2 Normal >60.0 [facility] Comment on above: Result Comment: The [facility]???s estimated glomerular filtration rate (eGFR) will no [...] individuals. Performed By: #### L [id number] ####[facility] ([facility])[address] [place] [address] Glucose [Mass/Vol] 145 mg/dL High 70-100 [facility] Comment on above: Performed By: #### L [id number] ####[facility] ([facility])[address] [place] [address] Potassium [Moles/Vol] 4.8 mmol/L Normal 3.5-5.1 [facility] Comment on above: Performed By: #### L [id number] ####[facility] ([facility] [place] [address] Sodium [Moles/Vol] 135 mmol/L Low 136-145 [facility] Comment on above: Performed By: #### L [id number] ####[facility] ([facility] [place] [address] Urea nitrogen [Mass/Vol] 27 mg/dL High 7-25 [facility] Comment on above: Performed By: #### L [id number] ####[facility] ([facility])[address] [place] [address] UREA NITROGEN/CREATININE (MASS RATIO) IN SER/PLAS 24.8 Normal [facility] Comment on above: Performed By: #### L [id number] ####[facility] ([facility])[address] [place] [address] CALCIUMon 08-18-2024 Calcium [Mass/Vol] 8.2 mg/dL Low 8.6-10.3 [facility] Comment on above: Performed By: #### L [id number] ####[facility] ([facility])[address] [place] [address] CBCon 08-18-2024 Erythrocyte distribution width (RBC) [Ratio] 13.5 % Normal 11.5-15.0 [facility] Comment on above: Performed By: #### L [id number] ####[facility] ([facility])[address] [place] [address] ERYTHROCYTE MEAN CORPUSCULAR HEMOGLOBIN CONCENTRATION (G/DL) BY AUTOMATED 33.0 g/dL Normal 32.0-35.0 [facility] Comment on above: Performed By: #### L [id number] ####[facility] ([facility])[address] [place] [address] Hematocrit (Bld) [Volume fraction] 26.7 % Low 39.0-50.0 [facility] Comment on above: Performed By: #### L [id number] ####[facility] ([facility])[address] [place] [address] Hemoglobin (Bld) [Mass/Vol] 8.8 g/dL Low 13.0-17.0 [facility] Comment on above: Performed By: #### L [id number] ####[facility] ([facility])[address] [place] [address] IMMATURE PLATELET FRACTION % 4.0 % Normal 0.8-6.3 [facility] Comment on above: Performed By: #### L [id number] ####[facility] ([facility])[address] [place] [address] MCH (RBC) [Entitic mass] 30.4 pg Normal 27.0-33.0 [facility] Comment on above: Performed By: #### L [id number] ####[facility] ([facility])[address] [place] [address] MCV (RBC) [Entitic vol] 92.4 fL Normal 82.0-98.0 [facility] Comment on above: Performed By: #### L [id number] ####[facility] ([facility])[address] [place] [address] PLATELETS (10*3/UL) IN BLOOD AUTOMATED COUNT 124 10*3/uL Low 150-400 [facility] Comment on above: Performed By: #### L [id number] ####[facility] ([facility] [place] [address] RBC (Bld) [#/Vol] 2.89 10*6/uL Low 4.20-5.70 [facility] Comment on above: Performed By: #### L [id number] ####[facility] ([facility])[address] [place] [address] WBC (Bld) [#/Vol] 12.74 10*3/uL High 4.00-10.60 [facility] Comment on above: Performed By: #### L [id number] ####[facility] ([facility])[address] [place] [address] MAGNESIUMon 08-18-2024 Magnesium [Mass/Vol] 2.2 mg/dL Normal 1.9-2.7 [facility] Comment on above: Performed By: #### L [id number] ####[facility] ([facility])[address] [place] [address] Magnesium [Mass/Vol] 2.1 mg/dL Normal 1.9-2.7 [facility] Comment on above: Performed By: #### L [id number] ####[facility] ([facility])[address] [place] [address] PHOSPHORUSon 08-18-2024 Magnesium [Mass/Vol] 3.2 mg/dL Normal 2.5-5.0 [facility] Comment on above: Order Comment: Reche ck Phosphorus level 2 hours after infusion. Performed By: #### L [id number] ####[facility] ([facility])[address] [place] [address] POCT GLUCOSE METER UNSOLICIT ED RESULTSon 08-18-2024 Glucose [Mass/Vol] 138 mg/dL High 70-105 [facility] Comment on above: Order Comment: Waive d Testing in the ED is performed under the ED CLIA certificate #[id number]. Result Comment: [email or web address] Performed By: #### L [id number] ####[facility] ([facility])[address] [place] [address] Glucose [Mass/Vol] 161 mg/dL High 70-105 [facility] Comment on above: Order Comment: Waive d Testing in the ED is performed under the ED CLIA certificate #[id number]. Result Comment: [email or web address] lso Performed By: #### L [id number] ####[facility] ([facility])[address] [place] [address] Glucose [Mass/Vol] 170 mg/dL High 70-105 [facility] Comment on above: Order Comment: Waive d Testing in the ED is performed under the ED CLIA certificate #[id number]. Result Comment: cgil lso Performed By: #### L [id number] ####[facility] ([facility])[address] [place] [address] Glucose [Mass/Vol] 158 mg/dL High 70-105 [facility] Comment on above: Order Comment: Waive d Testing in the ED is performed under the ED CLIA certificate #[id number]. Result Comment: [email or web address] lso Performed By: #### L [id number] ####[facility] ([facility])[address] [place] [address] Glucose [Mass/Vol] 161 mg/dL High 70-105 [facility] Comment on above: Order Comment: Waive d Testing in the ED is performed under the ED CLIA certificate #[id number]. Result Comment: [email or web address] Performed By: #### L [id number] ####[facility] ([facility])[address] [place] [address] POTASSIUMon 08-18-2024 Potassium [Moles/Vol] 4.6 mmol/L Normal 3.5-5.1 [facility] Comment on above: Order Comment: Reche ck Potassium level 2 hours after infusion. Performed By: #### L [id number] ####[facility] ([facility])[address] [place] [address] 30on 08-17-2024 30 Normal [facility] 30 Normal [facility] APTTon 08-17-2024 ACTIVATED PARTIAL THROMBOPLASTIN TIME IN PPP BY COAGULATION ASSAY 28.8 Seconds Normal 25.0-35.0 [facility] Comment on above: Result Comment: Clin ical significance of the APTT is questionable in the presence of heparin. Performed By: #### L [id number] ####[facility] ([facility])[address] [place] [address] ARTERIAL BLOOD GAS WITH CO-O XIMETRYon 08-17-2024 Base excess Calc (Bld) [Moles/Vol] 0.8 mmol/L Normal -2.0-3.0 [facility] Comment on above: Performed By: #### L [id number] ####[facility] [id number] [place] [address] [place] CARBOXYHEMOGLOBIN/HE MOGLOBIN TOTAL % IN BLOOD 1.1 % Normal 0.0-3.0 [facility] Comment on above: Performed By: #### L [id number] ####[facility] [id number] [place] [address] [place] CO2 (Bld) [Partial pressure] 47 mm[Hg] Normal 35-48 [facility] Comment on above: Performed By: #### L [id number] ####[facility] [id number] [place] [address] [place] DEOXYGENATED HEMOGLOBIN IN BLOOD 2.1 % Normal 1-5 [facility] Comment on above: Performed By: #### L [id number] ####[facility] [id number] [place] [address] [place] FIO2 36 % Normal [facility] Comment on above: Performed By: #### L [id number] ####[facility] [id number] [place] [address] [place] HCO3 (Bld) [Moles/Vol] 26.6 mmol/L Normal 21.0-28.0 [facility] Comment on above: Performed By: #### L [id number] ####[facility] [id number] [place] [address] [place] Hemoglobin (Bld) [Mass/Vol] 10.1 g/dL Low 11.7-17.4 [facility] Comment on above: Performed By: #### L [id number] ####[facility] [id number] [place] [address] [place] LPM 4 Normal [facility] Comment on above: Performed By: #### L [id number] ####[facility] [id number] [place] [address] [place] METHEMOGLOBIN/100 IN BLOOD 1.1 % Normal 0.0-1.5 [facility] Comment on above: Performed By: #### L [id number] ####[facility] [id number] [place] [address] [place] Oxygen (Bld) [Partial pressure] 86 mm[Hg] Normal 83-100 [facility] Comment on above: Performed By: #### L [id number] ####[facility] [id number] [place] [address] [place] OXYGEN SATURATION (%) IN ARTERIAL BLOOD 97.9 % Normal 94.0-98.0 [facility] Comment on above: Performed By: #### L [id number] ####[facility] [id number] [place] [address] [place] OXYGENATED HEMOGLOBIN IN BLOOD 95.6 % High 90.0-95.0 [facility] Comment on above: Performed By: #### L [id number] ####[facility] [id number] [place] [address] [place] pH (Bld) 7.36 [pH] Normal 7.35-7.45 [facility] Comment on above: Performed By: #### L [id number] ####[facility] [id number] [place] [address] [place] SOURCE OF OXYGEN Nasal cannula Normal [facility] Comment on above: Performed By: #### L [id number] ####[facility] [id number] [place] [address] [place] BASIC METABOLIC PANELon 07-21 Anion gap [Moles/Vol] 11 mmol/L Normal 7-20 [facility] Comment on above: Performed By: #### L [id number] ####[facility] ([facility])[address] [place] [address] Calcium [Mass/Vol] 8.3 mg/dL Low 8.6-10.3 [facility] Comment on above: Performed By: #### L [id number] ####[facility] ([facility])[address] [place] [address] Chloride [Moles/Vol] 102 mmol/L Normal 98-107 [facility] Comment on above: Performed By: #### L [id number] ####[facility] ([facility])[address] [place] [address] CO2 [Moles/Vol] 28 mmol/L Normal 21-31 [facility] Comment on above: Performed By: #### L [id number] ####[facility] ([facility])[address] [place] [address] Creatinine [Mass/Vol] 1.13 mg/dL Normal 0.70-1.30 [facility] Comment on above: Performed By: #### L [id number] ####[facility] ([facility])[address] [place] [address] GLOMERULAR FILTRATION RATE ML/MIN/1.73 SQ M.PREDICTED 68.2 mL/min/1.73m*2 Normal >60.0 [facility] Comment on above: Result Comment: The [facility]???s estimated glomerular filtration rate (eGFR) will no [...] individuals. Performed By: #### L [id number] ####[facility] ([facility])[address] [place] [address] Glucose [Mass/Vol] 166 mg/dL High 70-100 [facility] Comment on above: Performed By: #### L [id number] ####[facility] ([facility])[address] [place] [address] Potassium [Moles/Vol] 4.3 mmol/L Normal 3.5-5.1 [facility] Comment on above: Performed By: #### L [id number] ####[facility] ([facility])[address] [place] [address] Sodium [Moles/Vol] 137 mmol/L Normal 136-145 [facility] Comment on above: Performed By: #### L [id number] ####[facility] ([facility])[address] [place] [address] Urea nitrogen [Mass/Vol] 24 mg/dL Normal 7-25 [facility] Comment on above: Performed By: #### L [id number] ####[facility] ([facility])[address] [place] [address] UREA NITROGEN/CREATININE (MASS RATIO) IN SER/PLAS 21.2 Normal [facility] Comment on above: Performed By: #### L [id number] ####[facility] ([facility])[address] [place] [address] Anion gap [Moles/Vol] 10 mmol/L Normal 7-20 [facility] Comment on above: Performed By: #### L [id number] ####[facility] ([facility])[address] [place] [address] Calcium [Mass/Vol] 8.4 mg/dL Low 8.6-10.3 [facility] Comment on above: Performed By: #### L [id number] ####[facility] ([facility])[address] [place] [address] Chloride [Moles/Vol] 107 mmol/L Normal 98-107 [facility] Comment on above: Performed By: #### L [id number] ####[facility] ([facility])[address] [place] [address] CO2 [Moles/Vol] 28 mmol/L Normal 21-31 [facility] Comment on above: Performed By: #### L [id number] ####[facility] ([facility])[address] [place] [address] Creatinine [Mass/Vol] 1.16 mg/dL Normal 0.70-1.30 [facility] Comment on above: Performed By: #### L [id number] ####[facility] ([facility])[address] [place] [address] GLOMERULAR FILTRATION RATE ML/MIN/1.73 SQ M.PREDICTED 66.1 mL/min/1.73m*2 Normal >60.0 [facility] Comment on above: Result Comment: The [facility]???s estimated glomerular filtration rate (eGFR) will no [...] individuals. Performed By: #### L [id number] ####[facility] ([facility])[address] [place] [address] Glucose [Mass/Vol] 167 mg/dL High 70-100 [facility] Comment on above: Performed By: #### L [id number] ####[facility] ([facility])[address] [place] [address] Potassium [Moles/Vol] 4.2 mmol/L Normal 3.5-5.1 [facility] Comment on above: Performed By: #### L [id number] ####[facility] ([facility])[address] [place] [address] Sodium [Moles/Vol] 141 mmol/L Normal 136-145 [facility] Comment on above: Performed By: #### L [id number] ####[facility] ([facility])[address] [facility] [address] Urea nitrogen [Mass/Vol] 21 mg/dL Normal 7-25 [facility] Comment on above: Performed By: #### L [id number] ####[facility] ([facility])[address] [place] [address] UREA NITROGEN/CREATININE (MASS RATIO) IN SER/PLAS 18.1 Normal [facility] Comment on above: Performed By: #### L [id number] ####[facility] ([facility])[address] [place] [address] CALCIUM, IONIZEDon CALCIUM IONIZED (MMOL/L) IN BLOOD 1.13 mmol/L Low 1.15-1.33 [facility] Comment on above: Performed By: #### L [id number] ####[facility] [id number] [place] [address] [place] CALCIUM IONIZED (MMOL/L) IN BLOOD 1.26 mmol/L Normal 1.15-1.33 [facility] Comment on above: Performed By: #### C ALCIUM, IONIZED ####[facility] [id number] [place] [address] RUST CBCon 08-17-2024 Erythrocyte distribution width (RBC) [Ratio] 13.5 % Normal 11.5-15.0 [facility] Comment on above: Performed By: #### L [id number] ####[facility] ([facility])[address] [place] [address] ERYTHROCYTE MEAN CORPUSCULAR HEMOGLOBIN CONCENTRATION (G/DL) BY AUTOMATED 34.1 g/dL Normal 32.0-35.0 [facility] Comment on above: Performed By: #### L [id number] ####[facility] ([facility])[address] [place] [address] Hematocrit (Bld) [Volume fraction] 26.7 % Low 39.0-50.0 [facility] Comment on above: Performed By: #### L [id number] ####[facility] ([facility])[address] [place] [address] Hemoglobin (Bld) [Mass/Vol] 9.1 g/dL Low 13.0-17.0 [facility] Comment on above: Performed By: #### L [id number] ####[facility] ([facility])[address] [place] [address] IMMATURE PLATELET FRACTION % 3.5 % Normal 0.8-6.3 [facility] [facility] Comment on above: Performed By: #### L [id number] ####[facility] (BEAKER)[address] [place] [address] MCH (RBC) [Entitic mass] 30.3 pg Normal 27.0-33.0 [facility] Comment on above: Performed By: #### L [id number] ####[facility] ([facility] [place] [address] MCV (RBC) [Entitic vol] 89.0 fL Normal 82.0-98.0 [facility] Comment on above: Performed By: #### L [id number] ####[facility] ([facility])[address] [place] [address] PLATELETS (10*3/UL) IN BLOOD AUTOMATED COUNT 135 10*3/uL Low 150-400 [facility] Comment on above: Performed By: #### L [id number] ####[facility] ([facility] [place] [address] RBC (Bld) [#/Vol] 3.00 10*6/uL Low 4.20-5.70 [facility] Comment on above: Performed By: #### L [id number] ####[facility] ([facility] [place] [address] WBC (Bld) [#/Vol] 15.49 10*3/uL High 4.00-10.60 [facility] Comment on above: Performed By: #### L [id number] ####[facility] (BEAKER)[address] [place] [address] Erythrocyte distribution width (RBC) [Ratio] 13.2 % Normal 11.5-15.0 [facility] Comment on above: Performed By: #### L [id number] ####[facility] (BEAKER)[address] [place] [address] ERYTHROCYTE MEAN CORPUSCULAR HEMOGLOBIN CONCENTRATION (G/DL) BY AUTOMATED 33.6 g/dL Normal 32.0-35.0 [facility] Comment on above: Performed By: #### L [id number] ####[facility] (BEAKER)[address] [place] [address] Hematocrit (Bld) [Volume fraction] 28.6 % Low 39.0-50.0 [facility] Comment on above: Performed By: #### L [id number] ####[facility] (BEAKER)[address] [place] [address] Hemoglobin (Bld) [Mass/Vol] 9.6 g/dL Low 13.0-17.0 [facility] Comment on above: Performed By: #### L [id number] ####[facility] (BEAKER)[address] [place] [address] MCH (RBC) [Entitic mass] 30.4 pg Normal 27.0-33.0 [facility] Comment on above: Performed By: #### L [id number] ####[facility] (BEAKER)[address] [place] [address] MCV (RBC) [Entitic vol] 90.5 fL Normal 82.0-98.0 [facility] Comment on above: Performed By: #### L [id number] ####[facility] (BEAKER)[address] [place] [address] PLATELETS (10*3/UL) IN BLOOD AUTOMATED COUNT 161 10*3/uL Normal 150-400 [facility] Comment on above: Performed By: #### L [id number] ####[facility] (BEAKER)[address] [place] [address] RBC (Bld) [#/Vol] 3.16 10*6/uL Low 4.20-5.70 [facility] Comment on above: Performed By: #### L [id number] ####[facility] (BEAKER)[address] [place] [address] WBC (Bld) [#/Vol] 14.46 10*3/uL High 4.00-10.60 [facility] Comment on above: Performed By: #### L [id number] ####[facility] ([facility])[address] [address] CONSULTon 08-17-2024 CONSULT Normal [facility] LACTIC ACID WITH 4 HOUR REFL EXon 08-17-2024 LACTATE (MMOL/L) IN SER/PLAS 2.8 mmol/L Critically high 0.5-2.2 [facility] Comment on above: Performed By: #### L [id number] ####[facility] ([facility])[address] [place] [address] LACTIC ACID, PLASMAon 2024 LACTATE (MMOL/L) IN SER/PLAS 2.6 mmol/L Critically high 0.5-2.2 [facility] Comment on above: Result Comment: Prev ious result verified on 08/17/2024 0343 on specimen/case [id number] called with component Lactate blood venous for procedure Lactic acid with 4 hour reflex with value 2.8 mmol/L. Performed By: #### L [id number] ####[facility] ([facility])[address] [place] [address] MAGNESIUMon 08-17-2024 Magnesium [Mass/Vol] 1.9 mg/dL Normal 1.9-2.7 [facility] Comment on above: Performed By: #### L [id number] ####[facility] ([facility])[address] [place] [address] Magnesium [Mass/Vol] 2.0 mg/dL Normal 1.9-2.7 [facility] Comment on above: Performed By: #### L [id number] ####[facility] ([facility])[address] [place] [address] PHOSPHORUSon 08-17-2024 Magnesium [Mass/Vol] 3.9 mg/dL Normal 2.5-5.0 [facility] Comment on above: Performed By: #### L [id number] ####[facility] ([facility])[address] [place] [address] Magnesium [Mass/Vol] 3.4 mg/dL Normal 2.5-5.0 [facility] Comment on above: Performed By: #### L [id number] ####[facility] ([facility])[address] [place] [address] POCT GLUCOSE METER UNSOLICIT ED RESULTSon 08-17-2024 Glucose [Mass/Vol] 187 mg/dL High 70-105 [facility] Comment on above: Order Comment: Waive d Testing in the ED is performed under the ED CLIA certificate #[id number]. Result Comment: [email or web address] [email or web address] Performed By: #### L [id number] ####[facility] ([facility])[address] [place] [address] Glucose [Mass/Vol] 169 mg/dL High 70-105 [facility] Comment on above: Order Comment: Waive d Testing in the ED is performed under the ED CLIA certificate #[id number]. Result Comment: isim [email or web address] Performed By: #### L [id number] ####[facility] ([facility])[address] [place] [address] Glucose [Mass/Vol] 150 mg/dL High 70-105 [facility] Comment on above: Order Comment: Waive d Testing in the ED is performed under the ED CLIA certificate #[id number]. Result Comment: isim [email or web address] Performed By: #### L [id number] ####[facility] ([facility])[address] [place] [address] Glucose [Mass/Vol] 165 mg/dL High 70-105 [facility] Comment on above: Order Comment: Waive d Testing in the ED is performed under the ED CLIA certificate #[id number]. Result Comment: isim [email or web address] Performed By: #### L [id number] ####[facility] ([facility])[address] [place] [address] Glucose [Mass/Vol] 157 mg/dL High 70-105 [facility] Comment on above: Order Comment: Waive d Testing in the ED is performed under the ED CLIA certificate #[id number]. Result Comment: isim [email or web address] Performed By: #### L [id number] ####[facility] (BEAKER)[address] [place] [address] Glucose [Mass/Vol] 148 mg/dL High 70-105 [facility] Comment on above: Order Comment: Waive d Testing in the ED is performed under the ED CLIA certificate #[id number]. Result Comment: isim [email or web address] Performed By: #### L [id number] ####[facility] (BEAKER)[address] [place] [address] Glucose [Mass/Vol] 154 mg/dL High 70-105 [facility] Comment on above: Order Comment: Waive d Testing in the ED is performed under the ED CLIA certificate #[id number]. Result Comment: [email or web address] [email or web address] Performed By: #### L [id number] ####[facility] (BEAKER)[address] [place] [address] Glucose [Mass/Vol] 169 mg/dL High 70-105 [facility] Comment on above: Order Comment: Waive d Testing in the ED is performed under the ED CLIA certificate #[id number]. Result Comment: [email or web address] [email or web address] Performed By: #### L [id number] ####[facility] (BEAKER)[address] [place] [address] Glucose [Mass/Vol] 159 mg/dL High 70-105 [facility] Comment on above: Order Comment: Waive d Testing in the ED is performed under the ED CLIA certificate #[id number]. Result Comment: [email or web address] [email or web address] Performed By: #### L [id number] ####[facility] (BEAKER)[address] [place] [address] Glucose [Mass/Vol] 167 mg/dL High 70-105 [facility] Comment on above: Order Comment: Waive d Testing in the ED is performed under the ED CLIA certificate #[id number]. Result Comment: [email or web address] [email or web address] Performed By: #### L [id number] ####[facility] (BEAKER)[address] [place] [address] Glucose [Mass/Vol] 185 mg/dL High 70-105 [facility] Comment on above: Order Comment: Waive d Testing in the ED is performed under the ED CLIA certificate #[id number]. Result Comment: [email or web address] [email or web address] Performed By: #### L [id number] ####[facility] (BEAKER)[address] [place] [address] Glucose [Mass/Vol] 203 mg/dL High 70-105 [facility] Comment on above: Order Comment: Waive d Testing in the ED is performed under the ED CLIA certificate #[id number]. Result Comment: [email or web address] [email or web address] Performed By: #### L [id number] ####[facility] (AKER)[address] [place] [address] POTASSIUM, WHOLE BLOODon Potassium [Moles/Vol] 4.2 mmol/L Normal 3.5-5.1 [facility] Comment on above: Performed By: #### P OTASSIUM, WHOLE BLOOD ####[facility] [id number] [place] [address] [place] PROTIME-INRon 08-17-2024 INR IN PPP BY COAGULATION ASSAY 1.16 High 0.90-1.10 [facility] Comment on above: Order Comment: On [...] 1995;108:[id number]. Performed By: #### L [id number] ####[facility] (BEAKER)[address] [facility] [place] [address] PROTHROMBIN TIME (PT) IN PPP BY COAGULATION ASSAY 14.7 Seconds Normal 12.3-14.8 [facility] Comment on above: Order Comment: On ar rival to SICU Performed By: #### L [id number] ####[facility] (BEAKER)[address] [place] [address] SODIUM, WHOLE BLOODon 2024 SODIUM, WHOLE BLOOD 138 Normal 136-145 [facility] Comment on above: Performed By: #### S ODIUM, WHOLE BLOOD ####[facility] [id number] [place] [address] [place] VENOUS BLOOD GAS WITH CO-OXI METRYon 08-17-2024 Base excess Calc (BldV) [Moles/Vol] 1.2 mmol/L Normal [facility] Comment on above: Performed By: #### L [id number] ####[facility] [id number] [place] [address] [place] CARBOXYHEMOGLOBIN/HE MOGLOBIN TOTAL % IN BLOOD 1.2 % Normal [facility] Comment on above: Performed By: #### L [id number] ####[facility] [id number] [place] [address] [place] CO2 (BldV) [Partial pressure] 51 mm[Hg] High 40-50 [facility] Comment on above: Performed By: #### L [id number] ####[facility] [id number] [place] [address] [place] HCO3 (Bld) [Moles/Vol] 27.5 mmol/L Normal [facility] Comment on above: Performed By: #### L [id number] ####[facility] [id number] [place] [address] [place] Hemoglobin (Bld) [Mass/Vol] 10.0 g/dL Normal [facility] Comment on above: Performed By: #### L [id number] ####[facility] [id number] [place] [address] [place] METHEMOGLOBIN/100 IN BLOOD 0.8 % Normal 0.0-1.5 [facility] Comment on above: Performed By: #### L [id number] ####[facility] [id number] [place] [address] [place] Oxygen (BldV) [Partial pressure] 37 mm[Hg] Normal 35-45 [facility] Comment on above: Performed By: #### L [id number] ####[facility] [id number] [place] [address] [place] OXYGEN SATURATION (%) IN VENOUS BLOOD 62.8 % Low 65.0-75.0 [facility] Comment on above: Performed By: #### L [id number] ####[facility] [id number] [place] [address] [place] OXYGENATED HEMOGLOBIN IN BLOOD 61.5 % Normal [facility] Comment on above: Performed By: #### L [id number] ####[facility] [id number] [place] [address] [place] PH OF VENOUS BLOOD 7.34 Normal 7.31-7.41 [facility] Comment on above: Performed By: #### L [id number] ####[facility] [id number] [place] [address] [place] VENOUS BLOOD GAS WITH IONIZE D CALCIUMon 08-17-2024 Base excess Calc (BldV) [Moles/Vol] 2.5 mmol/L Normal [facility] Comment on above: Performed By: #### L [id number] ####[facility] [id number] [place] [address] [place] CALCIUM IONIZED (MMOL/L) IN BLOOD 1.28 mmol/L Normal 1.15-1.33 [facility] Comment on above: Performed By: #### L [id number] ####[facility] [id number] [place] [address] [place] CO2 (BldV) [Partial pressure] 53 mm[Hg] High 40-50 [facility] Comment on above: Performed By: #### L [id number] ####[facility] [id number] [place] [address] [place] HCO3 (Bld) [Moles/Vol] 29.3 mmol/L Normal [facility] Comment on above: Performed By: #### L [id number] ####[facility] [id number] [place] [address] [place] Oxygen (BldV) [Partial pressure] 40 mm[Hg] Normal 35-45 [facility] Comment on above: Performed By: #### L [id number] ####[facility] [id number] [place] [address] [place] OXYGEN SATURATION (%) IN VENOUS BLOOD 65.7 % Normal 65.0-75.0 [facility] Comment on above: Performed By: #### L [id number] ####[facility] [id number] [place] [address] [place] PH OF VENOUS BLOOD 7.35 Normal 7.31-7.41 [facility] Comment on above: Performed By: #### L [id number] ####[facility] [id number] [place] [address] [place] 30on 08-16-2024 30 Normal [facility] ANESon 08-16-2024 ANES Normal [facility] ANTI-XA (HEPARIN LEVEL)on HEPARIN UNFRACTIONATED (U/ML) IN PPP BY CHROMOGENIC METHOD 0.27 IU/mL Low 0.3-0.7 [facility] Comment on above: Order Comment: Check anti-Xa level every 6 hours while on heparin infusion, or per protocol. Result Comment: [place] roxaban and Apixaban will interfere with the anti Xa assay used to monitor UFH and LMWH. Performed By: #### L [id number] ####[facility] (BEAKER)[address] [facility] [place] [address] APTTon 08-16-2024 ACTIVATED PARTIAL THROMBOPLASTIN TIME IN PPP BY COAGULATION ASSAY 32.6 Seconds Normal 25.0-35.0 [facility] Comment on above: Order Comment: On ar rival to SICU Result Comment: Clin ical significance of the APTT is questionable in the presence of heparin. Performed By: #### L [id number] ####[facility] ([facility])[address] [place] [address] ACTIVATED PARTIAL THROMBOPLASTIN TIME IN PPP BY COAGULATION ASSAY 48.1 Seconds High 25.0-35.0 [facility] Comment on above: Result Comment: Clin ical significance of the APTT is questionable in the presence of heparin. Performed By: #### L [id number] ####[facility] ([facility])[address] [place] [address] ARTERIAL BLOOD GAS WITH CO-O XIMETRYon 08-16-2024 Base excess Calc (Bld) [Moles/Vol] 0.4 mmol/L Normal -2.0-3.0 [facility] Comment on above: Performed By: #### L [id number] ####[facility] [id number] [place] [address] [place] CARBOXYHEMOGLOBIN/HE MOGLOBIN TOTAL % IN BLOOD 1.9 % Normal 0.0-3.0 [facility] Comment on above: Performed By: #### L [id number] ####[facility] [id number] [place] [address] [place] CO2 (Bld) [Partial pressure] 56 mm[Hg] Critically high 35-48 [facility] Comment on above: Performed By: #### L [id number] ####[facility] [id number] [place] [address] [place] DEOXYGENATED HEMOGLOBIN IN BLOOD 3.2 % Normal 1-5 [facility] Comment on above: Performed By: #### L [id number] ####[facility] [id number] [place] [address] [place] HCO3 (Bld) [Moles/Vol] 27.6 mmol/L Normal 21.0-28.0 [facility] Comment on above: Performed By: #### L [id number] ####[facility] [id number] [place], [place] [address] Hemoglobin (Bld) [Mass/Vol] 10.7 g/dL Low 11.7-17.4 [facility] Comment on above: Performed By: #### L [id number] ####[facility] [id number] LPM 4 Normal [facility] Comment on above: Performed By: #### L [id number] ####[facility] [id number] [place] [address] METHEMOGLOBIN/100 IN BLOOD 0.6 % Normal 0.0-1.5 [facility] Comment on above: Performed By: #### L [id number] ####[facility] [id number] [place] [address] Oxygen (Bld) [Partial pressure] 80 mm[Hg] Low 83-100 [facility] Comment on above: Performed By: #### L [id number] ####[facility] [id number] [place] [address] OXYGEN SATURATION (%) IN ARTERIAL BLOOD 96.7 % Normal 94.0-98.0 [facility] Comment on above: Performed By: #### L [id number] ####[facility] [id number] [place] [address] OXYGENATED HEMOGLOBIN IN BLOOD 94.3 % Normal 90.0-95.0 [facility] Comment on above: Performed By: #### L [id number] ####[facility] [id number] [place] [id number] [place] pH (Bld) 7.30 [pH] Low 7.35-7.45 [facility] Comment on above: Performed By: #### L [id number] ####[facility] RES[facility] [id number] [place] [address] SOURCE OF OXYGEN Nasal cannula Normal [facility] Comment on above: Performed By: #### L [id number] ####[facility] [id number] [place] [address] [place] ARTERIAL BLOOD GAS WITH IONI ZED CALCIUMon 08-16-2024 Base excess Calc (Bld) [Moles/Vol] 0.3 mmol/L Normal -2.0-3.0 [facility] Comment on above: Performed By: #### L [id number] ####[facility] [id number] [place], [place] [address] CALCIUM IONIZED (MMOL/L) IN BLOOD 1.30 mmol/L Normal 1.15-1.33 [facility] Comment on above: Performed By: #### L [id number] ####[facility] [id number] [place] [address] [place] CO2 (Bld) [Partial pressure] 48 mm[Hg] Normal 35-48 [facility] Comment on above: Performed By: #### L [id number] ####[facility] [id number] [place] [address] [place] HCO3 (Bld) [Moles/Vol] 26.5 mmol/L Normal 21.0-28.0 [facility] Comment on above: Performed By: #### L [id number] ####[facility] [id number] [place] [address] [place] LPM 4 Normal [facility] Comment on above: Performed By: #### L [id number] ####[facility] [id number] [place] [address] [place] Oxygen (Bld) [Partial pressure] 70 mm[Hg] Low 83-100 [facility] Comment on above: Performed By: #### L [id number] ####[facility] [id number] [place] [address] [place] OXYGEN SATURATION (%) IN ARTERIAL BLOOD 95.0 % Normal 94.0-98.0 [facility] Comment on above: Performed By: #### L [id number] ####[facility] [id number] [place] [address], [place] [address] [place] pH (Bld) 7.35 [pH] Normal 7.35-7.45 [facility] Comment on above: Performed By: #### L [id number] ####[facility] [id number] [place] [address] [place] SOURCE OF OXYGEN Nasal cannula Normal [facility] Comment on above: Performed By: #### L [id number] ####[facility] [id number] [place] [address] [place] BASIC METABOLIC PANELon 03-2 Anion gap [Moles/Vol] 10 mmol/L Normal 7-20 [facility] Comment on above: Performed By: #### L [id number] ####[facility] (BEAKER)[address] [place] [address] Calcium [Mass/Vol] 8.5 mg/dL Low 8.6-10.3 [facility] Comment on above: Performed By: #### L [id number] ####[facility] (BEAKER)[address] [place] [address] Chloride [Moles/Vol] 108 mmol/L High 98-107 [facility] Comment on above: Performed By: #### L [id number] ####[facility] (BEAKER)[address] [place] [address] CO2 [Moles/Vol] 27 mmol/L Normal 21-31 [facility] Comment on above: Performed By: #### L [id number] ####[facility] (BEAKER)[address] [place] [address] Creatinine [Mass/Vol] 1.08 mg/dL Normal 0.70-1.30 [facility] Comment on above: Performed By: #### L [id number] ####[facility] (BEAKER)[address] [place] [address] GLOMERULAR FILTRATION RATE ML/MIN/1.73 SQ M.PREDICTED 72.0 mL/min/1.73m*2 Normal >60.0 [facility] Comment on above: Result Comment: The [facility]???s estimated glomerular filtration rate (eGFR) will no [...] individuals. Performed By: #### L [id number] ####[facility] ([facility])[address] [place] [address] Glucose [Mass/Vol] 179 mg/dL High 70-100 [facility] Comment on above: Performed By: #### L [id number] ####[facility] ([facility])[address] [place] [address] Potassium [Moles/Vol] 4.4 mmol/L Normal 3.5-5.1 [facility] Comment on above: Performed By: #### L [id number] ####[facility] (BEAKER)[address] [place] [address] Sodium [Moles/Vol] 141 mmol/L Normal 136-145 [facility] Comment on above: Performed By: #### L [id number] ####[facility] (BEAKER)[address] [place] [address] Urea nitrogen [Mass/Vol] 18 mg/dL Normal 7-25 [facility] Comment on above: Performed By: #### L [id number] ####[facility] (BEAKER)[address] [place] [address] UREA NITROGEN/CREATININE (MASS RATIO) IN SER/PLAS 16.7 Normal [facility] Comment on above: Performed By: #### L [id number] ####[facility] (BEAKER)[address] [place] [address] Anion gap [Moles/Vol] 10 mmol/L Normal 7-20 [facility] Comment on above: Order Comment: On ar rival to SICU Performed By: #### L [id number] ####[facility] (BEAKER)[address] [place] [address] Calcium [Mass/Vol] 9.1 mg/dL Normal 8.6-10.3 [facility] Comment on above: Order Comment: On ar rival to SICU Performed By: #### L [id number] ####[facility] (BEAKER)[address] [place] [address] Chloride [Moles/Vol] 107 mmol/L Normal 98-107 [facility] Comment on above: Order Comment: On ar rival to SICU Performed By: #### L [id number] ####[facility] (BEAKER)[address] [place] [address] CO2 [Moles/Vol] 28 mmol/L Normal 21-31 [facility] Comment on above: Order Comment: On ar rival to SICU Performed By: #### L [id number] ####[facility] (BEAKER)[address] [place] [address] Creatinine [Mass/Vol] 1.00 mg/dL Normal 0.70-1.30 [facility] Comment on above: Order Comment: On ar rival to SICU Performed By: #### L [id number] ####[facility] [place] [address] GLOMERULAR FILTRATION RATE ML/MIN/1.73 SQ M.PREDICTED 79.0 mL/min/1.73m*2 Normal >60.0 [facility] Comment on above: Order Comment: On ar rival to SICU Result Comment: The [facility]???s estimated glomerular filtration rate (eGFR) will no [...] individuals. Performed By: #### L [id number] ####[facility] ([facility])[address] [place] [address] Glucose [Mass/Vol] 158 mg/dL High 70-100 [facility] Comment on above: Order Comment: On ar rival to SICU Performed By: #### L [id number] ####[facility] ([facility])[address] [place] [address] Potassium [Moles/Vol] 4.2 mmol/L Normal 3.5-5.1 [facility] Comment on above: Order Comment: On ar rival to SICU Performed By: #### L [id number] ####[facility] ([facility])[address] [place] [address] Sodium [Moles/Vol] 141 mmol/L Normal 136-145 [facility] Comment on above: Order Comment: On ar rival to SICU Performed By: #### L [id number] ####[facility] ([facility])[address] [place] [address] Urea nitrogen [Mass/Vol] 16 mg/dL Normal 7-25 [facility] Comment on above: Order Comment: On ar rival to SICU Performed By: #### L [id number] ####[facility] ([facility])[address] [place] [address] UREA NITROGEN/CREATININE (MASS RATIO) IN SER/PLAS 16.0 Normal [facility] Comment on above: Order Comment: On ar rival to SICU Performed By: #### L [id number] ####[facility] ([facility])[address] [place] [address] Anion gap [Moles/Vol] 8 mmol/L Normal 7-20 [facility] Comment on above: Performed By: #### L [id number] ####[facility] ([facility])[address] [place] [address] Calcium [Mass/Vol] 8.7 mg/dL Normal 8.6-10.3 [facility] Comment on above: Performed By: #### L [id number] ####[facility] ([facility] [place] [address] Chloride [Moles/Vol] 104 mmol/L Normal 98-107 [facility] Comment on above: Performed By: #### L [id number] ####[facility] ([facility] [place] [address] CO2 [Moles/Vol] 29 mmol/L Normal 21-31 [facility] Comment on above: Performed By: #### L [id number] ####[facility] ([facility])[address] [place] [address] Creatinine [Mass/Vol] 1.01 mg/dL Normal 0.70-1.30 [facility] Comment on above: Performed By: #### L [id number] ####[facility] ([facility])[address] [place] [address] GLOMERULAR FILTRATION RATE ML/MIN/1.73 SQ M.PREDICTED 78.0 mL/min/1.73m*2 Normal >60.0 [facility] Comment on above: Result Comment: The [facility]???s estimated glomerular filtration rate (eGFR) will no [...] individuals. Performed By: #### L [id number] ####[facility] ([facility])[address] [place] [address] Glucose [Mass/Vol] 96 mg/dL Normal 70-100 [facility] Comment on above: Performed By: #### L [id number] ####[facility] ([facility])[address] [place] [address] Potassium [Moles/Vol] 4.3 mmol/L Normal 3.5-5.1 [facility] Comment on above: Performed By: #### L [id number] ####[facility] ([facility])[address] [place] [address] Sodium [Moles/Vol] 137 mmol/L Normal 136-145 [facility] Comment on above: Performed By: #### L [id number] ####[facility] ([facility])[address] [place] [address] Urea nitrogen [Mass/Vol] 15 mg/dL Normal 7-25 [facility] Comment on above: Performed By: #### L [id number] ####[facility] ([facility])[address] [place] [address] UREA NITROGEN/CREATININE (MASS RATIO) IN SER/PLAS 14.9 Normal [facility] Comment on above: Performed By: #### L [id number] ####[facility] ([facility])[address] [place] [address] CALCIUM, IONIZEDon CALCIUM IONIZED (MMOL/L) IN BLOOD 1.34 mmol/L High 1.15-1.33 [facility] Comment on above: Performed By: #### C ALCIUM, IONIZED ####[facility] RESPIRATORY [id number] [place] [address] [place] CBCon 08-16-2024 Erythrocyte distribution width (RBC) [Ratio] 12.9 % Normal 11.5-15.0 [facility] Comment on above: Performed By: #### L [id number] ####[facility] ([facility])[address] [place] [address] ERYTHROCYTE MEAN CORPUSCULAR HEMOGLOBIN CONCENTRATION (G/DL) BY AUTOMATED 33.4 g/dL Normal 32.0-35.0 [facility] Comment on above: Performed By: #### L [id number] ####[facility] ([facility])[address] [place] [address] Hematocrit (Bld) [Volume fraction] 30.5 % Low 39.0-50.0 [facility] Comment on above: Performed By: #### L [id number] ####[facility] ([facility])[address] [address] Hemoglobin (Bld) [Mass/Vol] 10.2 g/dL Low 13.0-17.0 [facility] Comment on above: Performed By: #### L [id number] ####[facility] ([facility])[address] [address] MCH (RBC) [Entitic mass] 30.1 pg Normal 27.0-33.0 [facility] Comment on above: Performed By: #### L [id number] ####[facility] ([facility])[address] [address] MCV (RBC) [Entitic vol] 90.0 fL Normal 82.0-98.0 [facility] Comment on above: Performed By: #### L [id number] ####[facility] ([facility])[address] [place] [address] PLATELETS (10*3/UL) IN BLOOD AUTOMATED COUNT 170 10*3/uL Normal 150-400 [facility] Comment on above: Performed By: #### L [id number] ####[facility] ([facility])[address] [address] RBC (Bld) [#/Vol] 3.39 10*6/uL Low 4.20-5.70 [facility] Comment on above: Performed By: #### L [id number] ####[facility] ([facility])[address] [address] WBC (Bld) [#/Vol] 14.36 10*3/uL High 4.00-10.60 [facility] Comment on above: Performed By: #### L [id number] ####[facility] ([facility])[address] [address] Erythrocyte distribution width (RBC) [Ratio] 12.8 % Normal 11.5-15.0 [facility] Comment on above: Order Comment: On ar rival to SICU Performed By: #### L [id number] ####[facility] ([facility])[address] [place] [address] ERYTHROCYTE MEAN CORPUSCULAR HEMOGLOBIN CONCENTRATION (G/DL) BY AUTOMATED 34.7 g/dL Normal 32.0-35.0 [facility] Comment on above: Order Comment: On ar rival to SICU Performed By: #### L [id number] ####[facility] ([facility])[address] [place] [address] Hematocrit (Bld) [Volume fraction] 29.7 % Low 39.0-50.0 [facility] Comment on above: Order Comment: On ar rival to SICU Performed By: #### L [id number] ####[facility] ([facility])[address] [place] [address] Hemoglobin (Bld) [Mass/Vol] 10.3 g/dL Low 13.0-17.0 [facility] Comment on above: Order Comment: On ar rival to SICU Performed By: #### L [id number] ####[facility] ([facility])[address] [place] [address] MCH (RBC) [Entitic mass] 30.2 pg Normal 27.0-33.0 [facility] Comment on above: Order Comment: On ar rival to SICU Performed By: #### L [id number] ####[facility] ([facility])[address] [place] [address] MCV (RBC) [Entitic vol] 87.1 fL Normal 82.0-98.0 [facility] Comment on above: Order Comment: On ar rival to SICU Performed By: #### L [id number] ####[facility] ([facility])[address] [place] [address] PLATELETS (10*3/UL) IN BLOOD AUTOMATED COUNT 160 10*3/uL Normal 150-400 [facility] Comment on above: Order Comment: On ar rival to SICU Performed By: #### L [id number] ####[facility] ([facility])[address] [place] [address] RBC (Bld) [#/Vol] 3.41 10*6/uL Low 4.20-5.70 [facility] Comment on above: Order Comment: On ar rival to SICU Performed By: #### L [id number] ####[facility] (BEAKER)[address] [place] [address] WBC (Bld) [#/Vol] 12.07 10*3/uL High 4.00-10.60 [facility] Comment on above: Order Comment: On ar rival to SICU Performed By: #### L [id number] ####[facility] (BE[facility]ER)[address] [address] Erythrocyte distribution width (RBC) [Ratio] 12.8 % Normal 11.5-15.0 [facility] Comment on above: Performed By: #### L [id number] ####[facility] (BE[facility]ER)[address] [address] ERYTHROCYTE MEAN CORPUSCULAR HEMOGLOBIN CONCENTRATION (G/DL) BY AUTOMATED 34.6 g/dL Normal 32.0-35.0 [facility] Comment on above: Performed By: #### L [id number] ####[facility] (BE[facility]ER)[address] [address] Hematocrit (Bld) [Volume fraction] 45.4 % Normal 39.0-50.0 [facility] Comment on above: Performed By: #### L [id number] ####[facility] (BE[facility]ER)[address] [address] Hemoglobin (Bld) [Mass/Vol] 15.7 g/dL Normal 13.0-17.0 [facility] Comment on above: Performed By: #### L [id number] ####[facility] (BE[facility]ER)[address] [address] MCH (RBC) [Entitic mass] 30.3 pg Normal 27.0-33.0 [facility] Comment on above: Performed By: #### L [id number] ####[facility] ([facility])[address] [place] [address] MCV (RBC) [Entitic vol] 87.6 fL Normal 82.0-98.0 [facility] Comment on above: Performed By: #### L [id number] ####[facility] ([facility])[address] [place] [address] PLATELETS (10*3/UL) IN BLOOD AUTOMATED COUNT 173 10*3/uL Normal 150-400 [facility] Comment on above: Performed By: #### L [id number] ####[facility] ([facility])[address] [place] [address] RBC (Bld) [#/Vol] 5.18 10*6/uL Normal 4.20-5.70 [facility] Comment on above: Performed By: #### L [id number] ####[facility] ([facility])[address] [place] [address] WBC (Bld) [#/Vol] 4.36 10*3/uL Normal 4.00-10.60 [facility] Comment on above: Performed By: #### L [id number] ####[facility] ([facility])[address] [place] [address] CO-OXIMETRYon 08-16-2024 CARBOXYHEMOGLOBIN/HE MOGLOBIN TOTAL % IN BLOOD 2.0 % Normal [facility] Comment on above: Performed By: #### L [id number] ####[facility] RES[facility] [id number] [place] [address] [place] Hemoglobin (Bld) [Mass/Vol] 10.8 g/dL Normal [facility] Comment on above: Performed By: #### L [id number] ####[facility] RES[facility] [id number] [facility] [address] [place] METHEMOGLOBIN/100 IN BLOOD 0.0 % Normal 0.0-1.5 [facility] Comment on above: Performed By: #### L [id number] ####[facility] RES[facility] [id number] [place] [address] [place] Oxygen saturation in Blood 55.4 % Normal [facility] Comment on above: Performed By: #### L [id number] ####[facility] RES[facility] [id number] [place] [address] [place] OXYGENATED HEMOGLOBIN IN BLOOD 54.3 % Normal [facility] Comment on above: Performed By: #### L [id number] ####[facility] RES[facility] [id number] [place] [address] [place] EXTEM Con 08-16-2024 EXTEM C A10 56 mm Normal 45-62 [facility] Comment on above: Performed By: #### E XTEM C ####[facility] RESPIR[facility] [id number] [place] [address] [place] EXTEM C A20 62 mm Normal 54-69 [facility] Comment on above: Performed By: #### E XTEM C ####[facility] RESPIRATORY [id number] [place] [address] [place] EXTEM C A5 47 mm Normal 33-52 [facility] Comment on above: Performed By: #### E XTEM C ####[facility] RESPIRATORY [id number] [place] [address] [place] [address] 66 s Normal 51-73 [facility] Comment on above: Performed By: #### E XTEM C ####[facility] RESPIR[facility] [id number] [place] [address] [place] EXTEM C ML 0 % Normal 0-6 [facility] Comment on above: Result Comment: CO^P reliminary Result Performed By: #### E XTEM C ####[facility] RESPIRATORY [id number] [place] [address] [place] EXTEM C A10 44 mm Low 45-62 [facility] Comment on above: Performed By: #### E XTEM C ####[facility] RES[facility]IR[facility]ORY [id number] [facility] [place] [address] [place] EXTEM C A20 51 mm Low 54-69 [facility] Comment on above: Performed By: #### E XTEM C ####[facility] RESPIRATORY [id number] [place] [address] [place] EXTEM C A5 34 mm Normal 33-52 [facility] Comment on above: Performed By: #### E XTEM C ####[facility] RESPIRATORY [id number] [place] [address] [place] [address] 72 s Normal 51-73 [facility] Comment on above: Performed By: #### E XTEM C ####[facility] RESPIRATORY [id number] [place] [address] [place] EXTEM C ML 0 % Normal 0-6 [facility] Comment on above: Result Comment: CO^P reliminary Result Performed By: #### E XTEM C ####[facility] RESPIRATORY [id number] [place] [address] [place] EXTEM C A10 55 mm Normal 45-62 [facility] Comment on above: Performed By: #### E XTEM C ####[facility] RESPIRATORY [id number] [place] [address] [place] EXTEM C A20 62 mm Normal 54-69 [facility] Comment on above: Performed By: #### E XTEM C ####[facility] RESPIRATORY [id number] [place] [address] [place] EXTEM C A5 44 mm Normal 33-52 [facility] Comment on above: Performed By: #### E XTEM C ####[facility] RESPIRATORY [id number] [place] [address] [place] [address] 54 s Normal 51-73 [facility] Comment on above: Performed By: #### E XTEM C ####[facility] RESPIRATORY [id number] [place] [address] [place] EXTEM C MCF 63 mm Normal 57-72 [facility] Comment on above: Performed By: #### E XTEM C ####[facility] RESPIRATORY [id number] [place] [address] [place] EXTEM C ML 0 % Normal 0-6 [facility] Comment on above: Result Comment: CO^P reliminary Result Performed By: #### E XTEM C ####[facility] RESPIRATORY [id number] [place] [address] [place] FIBRINOGENon 08-16-2024 Magnesium [Mass/Vol] 189 mg/dL Normal 150-425 [facility] Comment on above: Performed By: #### L [id number] ####[facility] ([facility]ER)[address] [place] [address] FIBTEM Con 08-16-2024 FIBTEM C A10 9 mm Normal 6-17 [facility] Comment on above: Performed By: #### F IBTEM C ####[facility] RESPIRATORY [id number] [place] [address] [place] FIBTEM C A20 10 mm Normal - [facility] Comment on above: Performed By: #### F IBTEM C ####[facility] RESPIRATORY [id number] [place] [address] [place] FIBTEM C A5 8 mm Normal - [facility] Comment on above: Performed By: #### F IBTEM C ####[facility] RESPIRATORY [id number] [place] [address] [place] FIBTEM C MCF 10 mm Normal - [facility] Comment on above: Performed By: #### F IBTEM C ####[facility] RESPIRATORY [id number] [place] [address] [place] FIBTEM C A10 9 mm Normal - [facility] Comment on above: Performed By: #### F IBTEM C ####[facility] RESPIRATORY [id number] [place] [address] [place] FIBTEM C A20 10 mm Normal -18 [facility] Comment on above: Performed By: #### F IBTEM C ####[facility] RESPIRATORY [id number] [place] [address] [place] FIBTEM C A5 8 mm Normal -16 [facility] Comment on above: Performed By: #### F IBTEM C ####[facility] RESPIRATORY [id number] [place] [address] [place] FIBTEM C MCF 10 mm Normal -19 [facility] Comment on above: Performed By: #### F IBTEM C ####[facility] RESPIRATORY [id number] [place] [address] [place] FIBTEM C A10 13 mm Normal 6-17 [facility] Comment on above: Performed By: #### F IBTEM C ####[facility] RESPIRATORY [id number] [place] [address] [place] FIBTEM C A20 14 mm Normal 6-18 [facility] Comment on above: Performed By: #### F IBTEM C ####[facility] RESPIRATORY [id number] [place] [address] [place] FIBTEM C A5 11 mm Normal 5-16 [facility] Comment on above: Performed By: #### F IBTEM C ####[facility] RESPIRATORY [id number] [place] [address] [place] FIBTEM C MCF 14 mm Normal 6-19 [facility] Comment on above: Performed By: #### F IBTEM C ####[facility] RESPIRATORY [id number] [place] [address] [place] HEPTEM Con 08-16-2024 HEPTEM C A10 52 mm Normal 44-61 [facility] Comment on above: Performed By: #### H EPTEM C ####[facility] RESPIRATORY [id number] [place] [address] [place] HEPTEM C A20 57 mm Normal 52-67 [facility] Comment on above: Performed By: #### H EPTEM C ####[facility] RESPIRATORY [id number] [place] [address] [place] HEPTEM C A5 42 mm Normal 33-51 [facility] Comment on above: Performed By: #### H EPTEM C ####[facility] RESPIRATORY [id number] [place] [address] [place] [address] 189 s Normal 141-215 [facility] Comment on above: Performed By: #### H EPTEM C ####[facility] RESPIRATORY [id number] [place] [address] [place] HEPTEM C A10 43 mm Low 44-61 [facility] Comment on above: Performed By: #### H EPTEM C ####[facility] RESPIRATORY [id number] [place] [address] [place] HEPTEM C A20 49 mm Low 52-67 [facility] Comment on above: Performed By: #### H EPTEM C ####[facility] RESPIRATORY [id number] [place] [address] [place] HEPTEM C A5 32 mm Low 33-51 [facility] Comment on above: Performed By: #### H EPTEM C ####[facility] RESPIRATORY [id number] [place] [address] [place] [address] C [address] 316 s High 141-215 [facility] Comment on above: Performed By: #### H EPTEM C ####[facility] RESPIRATORY [id number] [place] [address] [place] HEPTEM C A10 51 mm Normal 44-61 [facility] Comment on above: Performed By: #### H EPTEM C ####[facility] RESPIRATORY [id number] [place] [address] [place] HEPTEM C A20 57 mm Normal 52-67 [facility] Comment on above: Performed By: #### H EPTEM C ####[facility] RESPIRATORY [id number] [place] [address] [place] HEPTEM C A5 41 mm Normal 33-51 [facility] Comment on above: Performed By: #### H EPTEM C ####[facility] RESPIRATORY [id number] [place] [address] [place] [address] C [address] 181 s Normal 141-215 [facility] Comment on above: Performed By: #### H EPTEM C ####[facility] RESPIRATORY [id number] [place] [address] [place] HEPTEM C MCF 58 mm Normal 54-69 [facility] Comment on above: Performed By: #### H EPTEM C ####[facility] RESPIRATORY [id number] [place] [address] [place] HISTOLOGY - TISSUE EXAMon LAB AP CASE REPORT Normal [facility] Comment on above: Order Comment: Pre-o p diagnosis:Multi-vessel coronary artery stenosis [I25.10] Result Comment: Surg ical Pathology Case: [id number] Provider: Keith Cherry MD Collected: 08/16/2024 1116Ordering Location: [facility] Main Operating Room Received: 08/16/2024 1159Pathologist: AIDA Ohpecimen: Soft Tissue, Left atrial appendage Performed By: #### L [id number] ####[facility] (BEAKER)[address] [place] [address] LAB AP CLINICAL INFORMATION Normal [facility] Comment on above: Order Comment: Pre-o p diagnosis:Multi-vessel coronary artery stenosis [I25.10] Result Comment: Post -Op RzccmudzdE80.10 - Multi-vessel coronary artery stenosis [ICD-10-CM] Performed By: #### L [id number] ####[facility] (BEAKER)[address] [place] [address] LAB AP GROSS DESCRIPTION A. Soft Tissue. [facility] Comment on above: Order Comment: Pre-o p [...] normal dotson-pink trabeculations and no blood clots. Health Care Consultant sections are submitted in 1 cassette.Dorys Black, [facility] Ajit Joe [facility] Performed By: #### L [id number] ####[facility] (BEAKER)[address] [place] [address] LAB AP MICROSCOPIC DESCRIPTION Microscopic examination performed. [facility] Comment on above: Order Comment: Pre-o p diagnosis:Multi-vessel coronary artery stenosis [I25.10] Performed By: #### L [id number] ####[facility] (BEAKER)[address] [place] [address] LAB AP REPORT FINAL DIAGNOSIS NARRATIVE Normal [facility] Comment on above: Order Comment: Pre-o p diagnosis:Multi-vessel coronary artery stenosis [I25.10] Result Comment: Johana Smith eart, left atrial appendage, excision: - Benign cardiac tissue. Performed By: #### L [id number] ####[facility] (BEAKER)[address] [place] [address] HPon 08-16-2024 HP H&P reviewed. The pa tient was examined and there are no changes to the H&P. Normal [facility] INTEM Con 08-16-2024 INTEM C A10 52 mm Normal 46-63 [facility] Comment on above: Performed By: #### I NTEM C ####[facility] [id number] [place] [address] [place] INTEM C A20 58 mm Normal 53-68 [facility] Comment on above: Performed By: #### I NTEM C ####[facility] [id number] [place] [address] [place] INTEM C A5 43 mm Normal 36-54 [facility] Comment on above: Performed By: #### I NTEM C ####[facility] [id number] [place] [address] [address] 198 s Normal 139-205 [facility] Comment on above: Performed By: #### I NTEM C ####[facility] [id number] [place] [address] [place] INTEM C MCF 58 mm Normal 55-70 [facility] Comment on above: Performed By: #### I NTEM C ####[facility] [id number] [place] [address] [place] INT[place] C ML 0 % Normal 0-7 [facility] Comment on above: Result Comment: CO^P reliminary Result Performed By: #### I NTEM C ####[facility] [id number] [place] [address] 365.0 s High 139-205 [facility] Comment on above: Result Comment: CO^P reliminary Result>^Outside Reportable Range Performed By: #### I NTEM C ####[facility] [id number] [place] [address] [place] INTEM C A10 52 mm Normal 46-63 [facility] Comment on above: Performed By: #### I NTEM C ####[facility] [id number] [place] [address] [place] INTEM C A20 58 mm Normal 53-68 [facility] Comment on above: Performed By: #### I NTEM C ####[facility] [id number] [place] [address] [place] INTEM C A5 41 mm Normal 36-54 [facility] Comment on above: Performed By: #### I NTEM C ####[facility] [id number] [place] [address] 201 s Normal 139-205 [facility] Comment on above: Performed By: #### I NTEM C ####[facility] [id number] [place] [address] [place] INTEM C ML 0 % Normal 0-7 [facility] Comment on above: Result Comment: CO^P reliminary Result Performed By: #### I NTEM C ####[facility] [id number] [place] [address] [place] LACTIC ACID WITH 4 HOUR REFL EXon 08-16-2024 LACTATE (MMOL/L) IN SER/PLAS 2.3 mmol/L High 0.5-2.2 [facility] Comment on above: Performed By: #### L [id number] ####[facility] ([facility]ER)[address] [place] [address] LACTIC ACID, PLASMAon 2024 LACTATE (MMOL/L) IN SER/PLAS 3.1 mmol/L Critically high 0.5-2.2 [facility] Comment on above: Order Comment: On ar rival to SICU Performed By: #### L [id number] ####[facility] [place] [address] MAGNESIUMon 08-16-2024 Magnesium [Mass/Vol] 2.2 mg/dL Normal 1.9-2.7 [facility] Comment on above: Performed By: #### L [id number] ####[facility] ([facility])[address] [place] [address] Magnesium [Mass/Vol] 2.6 mg/dL Normal 1.9-2.7 [facility] Comment on above: Order Comment: On ar rival to SICU Performed By: #### L [id number] ####[facility] ([facility])[address] [place] [address] Magnesium [Mass/Vol] 1.9 mg/dL Normal 1.9-2.7 [facility] Comment on above: Performed By: #### L [id number] ####[facility] ([facility])[address] [place] [address] NURSNOTEon 08-16-2024 NURSNOTE Stat chest xray comp leted intraop Normal [facility] NURSNOTE Patient off unit, pe r pre op staff. Normal [facility] OPNOTEon 08-16-2024 OPNOTE Normal [facility] PHOSPHORUSon 08-16-2024 Magnesium [Mass/Vol] 3.5 mg/dL Normal 2.5-5.0 [facility] Comment on above: Performed By: #### L [id number] ####[facility] (BEAKER)[address] [place] [address] Magnesium [Mass/Vol] 4.4 mg/dL Normal 2.5-5.0 [facility] Comment on above: Order Comment: On ar rival to SICU Performed By: #### L [id number] ####[facility] (BEAKER)[address] [place] [address] Magnesium [Mass/Vol] 3.6 mg/dL Normal 2.5-5.0 [facility] Comment on above: Performed By: #### L [id number] ####[facility] ([facility])[address] [place] [address] POCT ACTIVATED CLOTTING TIME UNSOLICITED RESULTSon 08-16-2024 POC ACTIVATED CLOTTING TIME 113 sec Normal 82-152 [facility] Comment on above: Performed By: #### L [id number] ####[facility] ([facility])[address] [place] [address] POC ACTIVATED CLOTTING TIME 537 sec High 82-152 [facility] Comment on above: Performed By: #### L [id number] ####[facility] (BEAKER)[address] [place] [address] POC ACTIVATED CLOTTING TIME 561 sec High 82-152 [facility] Comment on above: Performed By: #### L [id number] ####[facility] ([facility])[address] [place] [address] POC ACTIVATED CLOTTING TIME 543 sec High 82-152 [facility] Comment on above: Performed By: #### L [id number] ####[facility] ([facility]ER)[address] [place] [address] POC ACTIVATED CLOTTING TIME 489 sec High 82-152 [facility] Comment on above: Performed By: #### L [id number] ####[facility] ([facility])[address] [place] [address] POC ACTIVATED CLOTTING TIME 543 sec High 82-152 [facility] Comment on above: Performed By: #### L [id number] ####[facility] ([facility])[address] [place] [address] POC ACTIVATED CLOTTING TIME 526 sec High 82-152 [facility] Comment on above: Performed By: #### L [id number] ####[facility] ([facility])[address] [place] [address] POC ACTIVATED CLOTTING TIME 471 sec High 82-152 [facility] Comment on above: Performed By: #### L [id number] ####[facility] ([facility])[address] [place] [address] POC ACTIVATED CLOTTING TIME 408 sec High 82-152 [facility] Comment on above: Performed By: #### L [id number] ####[facility] ([facility])[address] [place] [address] POC ACTIVATED CLOTTING TIME 119 sec Normal 82-152 [facility] Comment on above: Performed By: #### L [id number] ####[facility] ([facility])[address] [place] [address] POCT GLUCOSE METER UNSOLICIT ED RESULTSon 08-16-2024 Glucose [Mass/Vol] 169 mg/dL High 70-105 [facility] Comment on above: Order Comment: Waive d Testing in the ED is performed under the ED CLIA certificate #[id number]. Result Comment: [email or web address] Performed By: #### L [id number] ####[facility] ([facility])[address] [place] [address] Glucose [Mass/Vol] 164 mg/dL High 70-105 [facility] Comment on above: Order Comment: Waive d Testing in the ED is performed under the ED CLIA certificate #[id number]. Result Comment: [email or web address] Performed By: #### L [id number] ####[facility] ([facility])[address] [place] [address] Glucose [Mass/Vol] 166 mg/dL High 70-105 [facility] Comment on above: Order Comment: Waive d Testing in the ED is performed under the ED CLIA certificate #[id number]. Result Comment: [email or web address] Performed By: #### L [id number] ####[facility] ([facility])[address] [place] [address] Glucose [Mass/Vol] 184 mg/dL High 70-105 [facility] Comment on above: Order Comment: Waive d Testing in the ED is performed under the ED CLIA certificate #[id number]. Result Comment: [email or web address] Performed By: #### L [id number] ####[facility] ([facility] [place] [address] Glucose [Mass/Vol] 172 mg/dL High 70-105 [facility] Comment on above: Order Comment: Waive d Testing in the ED is performed under the ED CLIA certificate #[id number]. Result Comment: [email or web address] Performed By: #### L [id number] ####[facility] ([facility])[address] [place] [address] Glucose [Mass/Vol] 141 mg/dL High 70-105 [facility] Comment on above: Order Comment: Waive d Testing in the ED is performed under the ED CLIA certificate #[id number]. Result Comment: [email or web address] Performed By: #### L [id number] ####[facility] ([facility])[address] [place] [address] Glucose [Mass/Vol] 162 mg/dL High 70-105 [facility] Comment on above: Order Comment: Waive d Testing in the ED is performed under the ED CLIA certificate #[id number]. Result Comment: [email or web address] Performed By: #### L [id number] ####[facility] ([facility])[address] [place] [address] Glucose [Mass/Vol] 102 mg/dL Normal 70-105 [facility] Comment on above: Order Comment: Waive d Testing in the ED is performed under the ED CLIA certificate #[id number]. Result Comment: [email or web address] Performed By: #### L [id number] ####[facility] ([facility])[address] [place] [address] POCT PERFUSION PANEL UNSOLIC ITED RESULTSon 08-16-2024 CO2 [Moles/Vol] 25.0 mmol/L Normal 21.0-29.0 [facility] Comment on above: Performed By: #### L [id number] ####[facility] ([facility])[address] [place] [address] Glucose [Mass/Vol] 176 mg/dL High 70-105 [facility] Comment on above: Performed By: #### L [id number] ####[facility] (BEAKER)[address] [address] HCO3 (Bld) [Moles/Vol] 23.7 mmol/L Normal 23.0-28.0 [facility] Comment on above: Performed By: #### L [id number] ####[facility] (BEAKER)[address] [address] Hematocrit (Bld) [Volume fraction] 29 % Low 38-51 [facility] Comment on above: Performed By: #### L [id number] ####[facility] ([facility] [address] Hemoglobin (Bld) [Mass/Vol] 9.9 g/dL Low 12.0-17.0 [facility] Comment on above: Performed By: #### L [id number] ####[facility] (BEAKER)[address] [address] POCT BASE EXCESS -1.0 mmol/L Normal -2.0-3.0 [facility] Comment on above: Performed By: #### L [id number] ####[facility] (BEAKER)[address] [address] POCT IONIZED CALCIUM 1.34 mmol/L High 1.12-1.32 [facility] Comment on above: Performed By: #### L [id number] ####[facility] (BEAKER)[address] [address] POCT PCO2 36.8 mmHg Low 41.0-51.0 [facility] Comment on above: Performed By: #### L [id number] ####[facility] (BEAKER)[address] [address] POCT PH 7.42 High 7.31-7.41 [facility] Comment on above: Performed By: #### L [id number] ####[facility] (BEAKER)[address] [place] [address] POCT PO2 69 mmHg Low 80-105 [facility] Comment on above: Performed By: #### L [id number] ####[facility] (BEAKER)[address] [place] [address] POCT SO2 94 % Low 95-98 [facility] Comment on above: Performed By: #### L [id number] ####[facility] ([facility] [place] [address] Potassium [Moles/Vol] 3.9 mmol/L Normal 3.5-4.9 [facility] Comment on above: Performed By: #### L [id number] ####[facility] ([facility] [place] [address] Sodium [Moles/Vol] 139 mmol/L Normal 138.0-146 . 0 [facility] Comment on above: Performed By: #### L [id number] ####[facility] (BEAKER)[address] [place] [address] CO2 [Moles/Vol] 24.0 mmol/L Normal 21.0-29.0 [facility] Comment on above: Performed By: #### L [id number] ####[facility] (BEAKER)[address] [place] [address] Glucose [Mass/Vol] 192 mg/dL High 70-105 [facility] Comment on above: Performed By: #### L [id number] ####[facility] (BEAKER)[address] [place] [address] HCO3 (Bld) [Moles/Vol] 23.4 mmol/L Normal 23.0-28.0 [facility] Comment on above: Performed By: #### L [id number] ####[facility] (BEAKER)[address] [place] [address] Hematocrit (Bld) [Volume fraction] 28 % Low 38-51 [facility] Comment on above: Performed By: #### L [id number] ####[facility] (BEAKER)[address] [place] [address] Hemoglobin (Bld) [Mass/Vol] 9.5 g/dL Low 12.0-17.0 [facility] Comment on above: Performed By: #### L [id number] ####[facility] ([facility]ER)[address] [place] [address] POCT BASE EXCESS 0.0 mmol/L Normal -2.0-3.0 [facility] Comment on above: Performed By: #### L [id number] ####[facility] ([facility]ER)[address] [place] [address] POCT IONIZED CALCIUM 1.24 mmol/L Normal 1.12-1.32 [facility] Comment on above: Performed By: #### L [id number] ####[facility] (BE[facility]ER)[address] [place] [address] POCT PCO2 33.3 mmHg Low 41.0-51.0 [facility] Comment on above: Performed By: #### L [id number] ####[facility] (BEAKER)[address] [place] [address] POCT PH 7.46 High 7.31-7.41 [facility] Comment on above: Performed By: #### L [id number] ####[facility] (BE[facility]ER)[address] [place] [address] POCT PO2 75 mmHg Low 80-105 [facility] Comment on above: Performed By: #### L [id number] ####[facility] (BEAKER)[address] [place] [address] POCT SO2 96 % Normal 95-98 [facility] Comment on above: Performed By: #### L [id number] ####[facility] (BE[facility]ER)[address] [place] [address] Potassium [Moles/Vol] 4.5 mmol/L Normal 3.5-4.9 [facility] Comment on above: Performed By: #### L [id number] ####[facility] (BE[facility]ER)[address] [place] [address] Sodium [Moles/Vol] 137 mmol/L Low 138.0-146 . 0 [facility] Comment on above: Performed By: #### L [id number] ####[facility] (BEAKER)[address] [place] [address] CO2 [Moles/Vol] 26.0 mmol/L Normal 21.0-29.0 [facility] Comment on above: Performed By: #### L [id number] ####[facility] (BEAKER)[address] [place] [address] Glucose [Mass/Vol] 177 mg/dL High 70-105 [facility] Comment on above: Performed By: #### L [id number] ####[facility] (BEAKER)[address] [place] [address] HCO3 (Bld) [Moles/Vol] 24.9 mmol/L Normal 23.0-28.0 [facility] Comment on above: Performed By: #### L [id number] ####[facility] (BEAKER)[address] [place] [address] Hematocrit (Bld) [Volume fraction] 26 % Low 38-51 [facility] Comment on above: Performed By: #### L [id number] ####[facility] (BEAKER)[address] [place] [address] Hemoglobin (Bld) [Mass/Vol] 8.8 g/dL Low 12.0-17.0 [facility] Comment on above: Performed By: #### L [id number] ####[facility] (BEAKER)[address] [place] [address] POCT BASE EXCESS 2.0 mmol/L Normal -2.0-3.0 [facility] Comment on above: Performed By: #### L [id number] ####[facility] (BE[facility]ER)[address] [place] [address] POCT IONIZED CALCIUM 1.30 mmol/L Normal 1.12-1.32 [facility] Comment on above: Performed By: #### L [id number] ####[facility] (BEAKER)[address] [place] [address] POCT PCO2 30.6 mmHg Low 41.0-51.0 [facility] Comment on above: Performed By: #### L [id number] ####[facility] (BE[facility]ER)[address] [place] [address] POCT PH 7.52 High 7.31-7.41 [facility] Comment on above: Performed By: #### L [id number] ####[facility] (BE[facility]ER)[address] [place] [address] POCT PO2 82 mmHg Normal 80-105 [facility] Comment on above: Performed By: #### L [id number] ####[facility] (BEAKER)[address] [place] [address] POCT SO2 97 % Normal 95-98 [facility] Comment on above: Performed By: #### L [id number] ####[facility] (BEAKER)[address] [place] [address] Potassium [Moles/Vol] 5.4 mmol/L High 3.5-4.9 [facility] Comment on above: Performed By: #### L [id number] ####[facility] (BEAKER)[address] [place] [address] Sodium [Moles/Vol] 135 mmol/L Low 138.0-146 . 0 [facility] Comment on above: Performed By: #### L [id number] ####[facility] (BE[facility]ER)[address] [place] [address] CO2 [Moles/Vol] 29.0 mmol/L Normal 21.0-29.0 [facility] Comment on above: Performed By: #### L [id number] ####[facility] (BE[facility]ER)[address] [place] [address] Glucose [Mass/Vol] 151 mg/dL High 70-105 [facility] Comment on above: Performed By: #### L [id number] ####[facility] (BE[facility]ER)[address] [address] HCO3 (Bld) [Moles/Vol] 28.7 mmol/L High 23.0-28.0 [facility] Comment on above: Performed By: #### L [id number] ####[facility] ([facility] [address] Hematocrit (Bld) [Volume fraction] 27 % Low 38-51 [facility] Comment on above: Performed By: #### L [id number] ####[facility] ([facility])[address] [address] Hemoglobin (Bld) [Mass/Vol] 9.2 g/dL Low 12.0-17.0 [facility] Comment on above: Performed By: #### L [id number] ####[facility] ([facility] [address] POCT BASE EXCESS 9.0 mmol/L High -2.0-3.0 [facility] Comment on above: Performed By: #### L [id number] ####[facility] ([facility] [address] POCT IONIZED CALCIUM 0.99 mmol/L Low 1.12-1.32 [facility] Comment on above: Performed By: #### L [id number] ####[facility] ([facility]ER)[address] [address] POCT PCO2 24.1 mmHg Low 41.0-51.0 [facility] Comment on above: Performed By: #### L [id number] ####[facility] ([facility]ER)[address] [address] POCT PH 7.68 High 7.31-7.41 [facility] Comment on above: Performed By: #### L [id number] ####[facility] (BE[facility]ER)[address] [place] [address] POCT PO2 512 mmHg High 80-105 [facility] Comment on above: Performed By: #### L [id number] ####[facility] (BEAKER)[address] [place] [address] POCT SO2 100 % High 95-98 [facility] Comment on above: Performed By: #### L [id number] ####[facility] (BEAKER)[address] [place] [address] Potassium [Moles/Vol] 6.1 mmol/L Critically high 3.5-4.9 [facility] Comment on above: Performed By: #### L [id number] ####[facility] (BEAKER)[address] [address] Sodium [Moles/Vol] 133 mmol/L Low 138.0-146 . 0 [facility] Comment on above: Performed By: #### L [id number] ####[facility] (BEAKER)[address] [place] [address] CO2 [Moles/Vol] 26.0 mmol/L Normal 21.0-29.0 [facility] Comment on above: Performed By: #### L [id number] ####[facility] (BEAKER)[address] [address] Glucose [Mass/Vol] 157 mg/dL High 70-105 [facility] Comment on above: Performed By: #### L [id number] ####[facility] (BE[facility]ER)[address] [place] [address] HCO3 (Bld) [Moles/Vol] 25.4 mmol/L Normal 23.0-28.0 [facility] Comment on above: Performed By: #### L [id number] ####[facility] (BEAKER)[address] [place] [address] Hematocrit (Bld) [Volume fraction] 34 % Low 38-51 [facility] Comment on above: Performed By: #### L [id number] ####[facility] (BE[facility]ER)[address] [place] [address] Hemoglobin (Bld) [Mass/Vol] 11.6 g/dL Low 12.0-17.0 [facility] Comment on above: Performed By: #### L [id number] ####[facility] (BE[facility]ER)[address] [place] [address] POCT BASE EXCESS 3.0 mmol/L Normal -2.0-3.0 [facility] Comment on above: Performed By: #### L [id number] ####[facility] (BEAKER)[address] [place] [address] POCT IONIZED CALCIUM 1.09 mmol/L Low 1.12-1.32 [facility] Comment on above: Performed By: #### L [id number] ####[facility] (BEAKER)[address] [place] [address] POCT PCO2 32.6 mmHg Low 41.0-51.0 [facility] Comment on above: Performed By: #### L [id number] ####[facility] (BEAKER)[address] [place] [address] POCT PH 7.50 High 7.31-7.41 [facility] Comment on above: Performed By: #### L [id number] ####[facility] (BEAKER)[address] [place] [address] POCT PO2 441 mmHg High 80-105 [facility] Comment on above: Performed By: #### L [id number] ####[facility] (BEAKER)[address] [place] [address] POCT SO2 100 % High 95-98 [facility] Comment on above: Performed By: #### L [id number] ####[facility] (BEAKER)[address] [place] [address] Potassium [Moles/Vol] 6.5 mmol/L Critically high 3.5-4.9 [facility] Comment on above: Performed By: #### L [id number] ####[facility] (BEAKER)[address] [place] [address] Sodium [Moles/Vol] 132 mmol/L Low 138.0-146 . 0 [facility] Comment on above: Performed By: #### L [id number] ####[facility] (BEAKER)[address] [place] [address] CO2 [Moles/Vol] 27.0 mmol/L Normal 21.0-29.0 [facility] Comment on above: Performed By: #### L [id number] ####[facility] (BEAKER)[address] [place] [address] Glucose [Mass/Vol] 155 mg/dL High 70-105 [facility] Comment on above: Performed By: #### L [id number] ####[facility] (BEAKER)[address] [place] [address] HCO3 (Bld) [Moles/Vol] 26.0 mmol/L Normal 23.0-28.0 [facility] Comment on above: Performed By: #### L [id number] ####[facility] (BEAKER)[address] [place] [address] Hematocrit (Bld) [Volume fraction] 33 % Low 38-51 [facility] Comment on above: Performed By: #### L [id number] ####[facility] ([facility]AKER)[address] [place] [address] Hemoglobin (Bld) [Mass/Vol] 11.2 g/dL Low 12.0-17.0 [facility] Comment on above: Performed By: #### L [id number] ####[facility] ([facility])[address] [place] [address] POCT BASE EXCESS 2.0 mmol/L Normal -2.0-3.0 [facility] Comment on above: Performed By: #### L [id number] ####[facility] ([facility])[address] [place] [address] POCT IONIZED CALCIUM 0.96 mmol/L Low 1.12-1.32 [facility] Comment on above: Performed By: #### L [id number] ####[facility] ([facility])[address] [place] [address] POCT PCO2 35.7 mmHg Low 41.0-51.0 [facility] Comment on above: Performed By: #### L [id number] ####[facility] ([facility])[address] [place] [address] POCT PH 7.47 High 7.31-7.41 [facility] Comment on above: Performed By: #### L [id number] ####[facility] ([facility]ER)[address] [place] [address] POCT PO2 556 mmHg High 80-105 [facility] Comment on above: Performed By: #### L [id number] ####[facility] ([facility]AKER)[address] [place] [address] POCT SO2 100 % High 95-98 [facility] Comment on above: Performed By: #### L [id number] ####[facility] ([facility])[address] [place] [address] Potassium [Moles/Vol] 6.7 mmol/L Critically high 3.5-4.9 [facility] Comment on above: Performed By: #### L [id number] ####[facility] ([facility])[address] [place] [address] Sodium [Moles/Vol] 131 mmol/L Low 138.0-146 . 0 [facility] Comment on above: Performed By: #### L [id number] ####[facility] (BEAKER)[address] [place] [address] CO2 [Moles/Vol] 24.0 mmol/L Normal 21.0-29.0 [facility] Comment on above: Performed By: #### L [id number] ####[facility] ([facility]ER)[address] [place] [address] Glucose [Mass/Vol] 147 mg/dL High 70-105 [facility] Comment on above: Performed By: #### L [id number] ####[facility] (BEAKER)[address] [place] [address] HCO3 (Bld) [Moles/Vol] 23.5 mmol/L Normal 23.0-28.0 [facility] Comment on above: Performed By: #### L [id number] ####[facility] (BEAKER)[address] [address] Hematocrit (Bld) [Volume fraction] 32 % Low 38-51 [facility] Comment on above: Performed By: #### L [id number] ####[facility] (BEAKER)[address] [address] Hemoglobin (Bld) [Mass/Vol] 10.9 g/dL Low 12.0-17.0 [facility] Comment on above: Performed By: #### L [id number] ####[facility] (BEAKER)[address] [address] POCT BASE EXCESS 0.0 mmol/L Normal -2.0-3.0 [facility] Comment on above: Performed By: #### L [id number] ####[facility] ([facility]ER)[address] [address] POCT IONIZED CALCIUM 0.94 mmol/L Low 1.12-1.32 [facility] Comment on above: Performed By: #### L [id number] ####[facility] ([facility]ER)[address] [address] POCT PCO2 33.0 mmHg Low 41.0-51.0 [facility] Comment on above: Performed By: #### L [id number] ####[facility] ([facility]ER)[address] [address] POCT PH 7.46 High 7.31-7.41 [facility] Comment on above: Performed By: #### L [id number] ####[facility] ([facility]ER)[address] [address] POCT PO2 458 mmHg High 80-105 [facility] Comment on above: Performed By: #### L [id number] ####[facility] (BEAKER)[address] [place] [address] POCT SO2 100 % High 95-98 [facility] Comment on above: Performed By: #### L [id number] ####[facility] (BEAKER)[address] [place] [address] Potassium [Moles/Vol] 6.1 mmol/L Critically high 3.5-4.9 [facility] Comment on above: Performed By: #### L [id number] ####[facility] (BEAKER)[address] [place] [address] Sodium [Moles/Vol] 131 mmol/L Low 138.0-146 . 0 [facility] Comment on above: Performed By: #### L [id number] ####[facility] (BEAKER)[address] [place] [address] CO2 [Moles/Vol] 25.0 mmol/L Normal 21.0-29.0 [facility] Comment on above: Performed By: #### L [id number] ####[facility] (BEAKER)[address] [place] [address] Glucose [Mass/Vol] 165 mg/dL High 70-105 [facility] Comment on above: Performed By: #### L [id number] ####[facility] (BEAKER)[address] [place] [address] HCO3 (Bld) [Moles/Vol] 24.1 mmol/L Normal 23.0-28.0 [facility] Comment on above: Performed By: #### L [id number] ####[facility] (BEAKER)[address] [place] [address] Hematocrit (Bld) [Volume fraction] 43 % Normal 38-51 [facility] Comment on above: Performed By: #### L [id number] ####[facility] (BEAKER)[address] [place] [address] Hemoglobin (Bld) [Mass/Vol] 14.6 g/dL Normal 12.0-17.0 [facility] Comment on above: Performed By: #### L [id number] ####[facility] ([facility]AKER)[address] [place] [address] POCT BASE EXCESS -1.0 mmol/L Normal -2.0-3.0 [facility] Comment on above: Performed By: #### L [id number] ####[facility] (BEAKER)[address] [place] [address] POCT IONIZED CALCIUM 1.16 mmol/L Normal 1.12-1.32 [facility] Comment on above: Performed By: #### L [id number] ####[facility] (BEAKER)[address] [place] [address] POCT PCO2 39.3 mmHg Low 41.0-51.0 [facility] Comment on above: Performed By: #### L [id number] ####[facility] ([facility]ER)[address] [place] [address] POCT PH 7.40 Normal 7.31-7.41 [facility] Comment on above: Performed By: #### L [id number] ####[facility] ([facility]AKER)[address] [place] [address] POCT PO2 60 mmHg Low 80-105 [facility] Comment on above: Performed By: #### L [id number] ####[facility] (BEAKER)[address] [place] [address] POCT SO2 90 % Low 95-98 [facility] Comment on above: Performed By: #### L [id number] ####[facility] (BEAKER)[address] [place] [address] Potassium [Moles/Vol] 5.2 mmol/L High 3.5-4.9 [facility] Comment on above: Performed By: #### L [id number] ####[facility] (BEAKER)[address] [place] [address] Sodium [Moles/Vol] 137 mmol/L Low 138.0-146 . 0 [facility] Comment on above: Performed By: #### L [id number] ####[facility] (BEAKER)[address] [place] [address] CO2 [Moles/Vol] 24.0 mmol/L Normal 21.0-29.0 [facility] Comment on above: Performed By: #### L [id number] ####[facility] (BEAKER)[address] [place] [address] Glucose [Mass/Vol] 132 mg/dL High 70-105 [facility] Comment on above: Performed By: #### L [id number] ####[facility] (BEAKER)[address] [place] [address] HCO3 (Bld) [Moles/Vol] 23.1 mmol/L Normal 23.0-28.0 [facility] Comment on above: Performed By: #### L [id number] ####[facility] (BEAKER)[address] [place] [address] Hematocrit (Bld) [Volume fraction] 42 % Normal 38-51 [facility] Comment on above: Performed By: #### L [id number] ####[facility] (BEAKER)[address] [place] [address] Hemoglobin (Bld) [Mass/Vol] 14.3 g/dL Normal 12.0-17.0 [facility] Comment on above: Performed By: #### L [id number] ####[facility] ([facility]AKER)[address] [place] [address] POCT BASE EXCESS -2.0 mmol/L Normal -2.0-3.0 [facility] Comment on above: Performed By: #### L [id number] ####[facility] (BEAKER)[address] [place] [address] POCT IONIZED CALCIUM 1.15 mmol/L Normal 1.12-1.32 [facility] Comment on above: Performed By: #### L [id number] ####[facility] (BEAKER)[address] [place] [address] POCT PCO2 39.9 mmHg Low 41.0-51.0 [facility] Comment on above: Performed By: #### L [id number] ####[facility] (BEAKER)[address] [place] [address] POCT PH 7.37 Normal 7.31-7.41 [facility] Comment on above: Performed By: #### L [id number] ####[facility] (BEAKER)[address] [place] [address] POCT PO2 82 mmHg Normal 80-105 [facility] Comment on above: Performed By: #### L [id number] ####[facility] (BEAKER)[address] [place] [address] POCT SO2 96 % Normal 95-98 [facility] Comment on above: Performed By: #### L [id number] ####[facility] (BEAKER)[address] [place] [address] Potassium [Moles/Vol] 4.7 mmol/L Normal 3.5-4.9 [facility] Comment on above: Performed By: #### L [id number] ####[facility] (BEAKER)[address] [place] [address] Sodium [Moles/Vol] 138 mmol/L Normal 138.0-146 . 0 [facility] Comment on above: Performed By: #### L [id number] ####[facility] (BEAKER)[address] [place] [address] CO2 [Moles/Vol] 26.0 mmol/L Normal 21.0-29.0 [facility] Comment on above: Performed By: #### L [id number] ####[facility] (BEAKER)[address] [place] [address] Glucose [Mass/Vol] 114 mg/dL High 70-105 [facility] Comment on above: Performed By: #### L [id number] ####[facility] (BEAKER)[address] [address] HCO3 (Bld) [Moles/Vol] 24.7 mmol/L Normal 23.0-28.0 [facility] Comment on above: Performed By: #### L [id number] ####[facility] (BEAKER)[address] [address] Hematocrit (Bld) [Volume fraction] 44 % Normal 38-51 [facility] Comment on above: Performed By: #### L [id number] ####[facility] (BEAKER)[address] [address] Hemoglobin (Bld) [Mass/Vol] 15.0 g/dL Normal 12.0-17.0 [facility] Comment on above: Performed By: #### L [id number] ####[facility] (BEAKER)[address] [address] POCT BASE EXCESS 0.0 mmol/L Normal -2.0-3.0 [facility] Comment on above: Performed By: #### L [id number] ####[facility] (BEAKER)[address] [address] POCT IONIZED CALCIUM 1.19 mmol/L Normal 1.12-1.32 [facility] Comment on above: Performed By: #### L [id number] ####[facility] (BEAKER)[address] [address] POCT PCO2 40.9 mmHg Low 41.0-51.0 [facility] Comment on above: Performed By: #### L [id number] ####[facility] (BEAKER)[address] [address] POCT PH 7.39 Normal 7.31-7.41 [facility] Comment on above: Performed By: #### L [id number] ####[facility] (BEAKER)[address] [place] [address] POCT PO2 114 mmHg High 80-105 [facility] Comment on above: Performed By: #### L [id number] ####[facility] (BEAKER)[address] [place] [address] POCT SO2 98 % Normal 95-98 [facility] Comment on above: Performed By: #### L [id number] ####[facility] [place] [address] Potassium [Moles/Vol] 4.4 mmol/L Normal 3.5-4.9 [facility] Comment on above: Performed By: #### L [id number] ####[facility] ([facility] [place] [address] Sodium [Moles/Vol] 137 mmol/L Low 138.0-146 . 0 [facility] Comment on above: Performed By: #### L [id number] ####[facility] ([facility])[address] [place] [address] POTASSIUM, WHOLE BLOODon Potassium [Moles/Vol] 4.5 mmol/L Normal 3.5-5.1 [facility] Comment on above: Performed By: #### P OTASSIUM, WHOLE BLOOD ####[facility] [id number] [place] [address] [place] PROTIME-INRon 08-16-2024 INR IN PPP BY COAGULATION ASSAY 1.26 High 0.90-1.10 [facility] Comment on above: Result Comment: ACCC P [...] 1995;108:231S-246S. Performed By: #### L [id number] ####[facility] [employer])[address] [place] [address] PROTHROMBIN TIME (PT) IN PPP BY COAGULATION ASSAY 15.7 Seconds High 12.3-14.8 [facility] Comment on above: Performed By: #### L [id number] ####[facility] [employer])[address] [place] [address] INR IN PPP BY COAGULATION ASSAY 1.45 High 0.90-1.10 [facility] Comment on above: Order Comment: On [...] 1995;108:231S-246S. Performed By: #### L [id number] ####[facility] [employer])[address] [place] [address] PROTHROMBIN TIME (PT) IN PPP BY COAGULATION ASSAY 17.5 Seconds High 12.3-14.8 [facility] Comment on above: Order Comment: On ar rival to SICU Performed By: #### L [id number] ####[facility] ([employer])[address] [place] [address] INR IN PPP BY COAGULATION ASSAY 0.98 Normal 0.90-1.10 [facility] Comment on above: Result Comment: ACCC P [...] 1995;108:231S-246S. Performed By: #### L [id number] ####[facility] ([employer])[address] [place] [address] PROTHROMBIN TIME (PT) IN PPP BY COAGULATION ASSAY 13.0 Seconds Normal 12.3-14.8 [facility] Comment on above: Performed By: #### L [id number] ####[facility] ([employer])[address] [place] [address] SODIUM, WHOLE BLOODon 2024 SODIUM, WHOLE BLOOD 138 Normal 136-145 [facility] Comment on above: Performed By: #### S ODIUM, WHOLE BLOOD ####[facility] [id number] [place] [address] [place] 30on 08-15-2024 30 Normal [facility] 30 Normal [facility] 30 Normal [facility] 30 Normal [facility] ANESon 08-15-2024 ANES Normal [facility] ANTI-XA (HEPARIN LEVEL)on HEPARIN UNFRACTIONATED (U/ML) IN PPP BY CHROMOGENIC METHOD 0.64 IU/mL Normal 0.3-0.7 [facility] Comment on above: Order Comment: Check anti-Xa level every 6 hours while on heparin infusion, or per protocol. Result Comment: Cindy roxaban and Apixaban will interfere with the anti Xa assay used to monitor UFH and LMWH. Performed By: #### L [id number] ####[facility] (BEAKER)[address] [place] [address] HEPARIN UNFRACTIONATED (U/ML) IN PPP BY CHROMOGENIC METHOD 0.82 IU/mL High 0.3-0.7 [facility] Comment on above: Order Comment: Check anti-Xa level every 6 hours while on heparin infusion, or per protocol. Result Comment: Woodridge roxaban and Apixaban will interfere with the anti Xa assay used to monitor UFH and LMWH. Performed By: #### L [id number] ####[facility] (BEAKER)[address] [place] [address] HEPARIN UNFRACTIONATED (U/ML) IN PPP BY CHROMOGENIC METHOD 0.68 IU/mL Normal 0.3-0.7 [facility] Comment on above: Result Comment: [place]ridge roxaban and Apixaban will interfere with the anti Xa assay used to monitor UFH and LMWH. Performed By: #### L [id number] ####[facility] (BEAKER)[address] [place] [address] HEPARIN UNFRACTIONATED (U/ML) IN PPP BY CHROMOGENIC METHOD 0.71 IU/mL High 0.3-0.7 [facility] Comment on above: Order Comment: Check anti-Xa level every 6 hours while on heparin infusion, or per protocol. Result Comment: Cindy roxaban and Apixaban will interfere with the anti Xa assay used to monitor UFH and LMWH. Performed By: #### L [id number] ####[facility] ([facility])[address] [place] [address] CBCon 08-15-2024 Erythrocyte distribution width (RBC) [Ratio] 13.1 % Normal 11.5-15.0 [facility] Comment on above: Performed By: #### L [id number] ####[facility] ([facility])[address] [place] [address] ERYTHROCYTE MEAN CORPUSCULAR HEMOGLOBIN CONCENTRATION (G/DL) BY AUTOMATED 33.3 g/dL Normal 32.0-35.0 [facility] Comment on above: Performed By: #### L [id number] ####[facility] ([facility])[address] [place] [address] Hematocrit (Bld) [Volume fraction] 46.8 % Normal 39.0-50.0 [facility] Comment on above: Performed By: #### L [id number] ####[facility] ([facility])[address] [place] [address] Hemoglobin (Bld) [Mass/Vol] 15.6 g/dL Normal 13.0-17.0 [facility] Comment on above: Performed By: #### L [id number] ####[facility] ([facility])[address] [place] [address] MCH (RBC) [Entitic mass] 29.8 pg Normal 27.0-33.0 [facility] Comment on above: Performed By: #### L [id number] ####[facility] ([facility])[address] [place] [address] MCV (RBC) [Entitic vol] 89.5 fL Normal 82.0-98.0 [facility] Comment on above: Performed By: #### L [id number] ####[facility] ([facility])[address] [place] [address] PLATELETS (10*3/UL) IN BLOOD AUTOMATED COUNT 178 10*3/uL Normal 150-400 [facility] Comment on above: Performed By: #### L [id number] ####[facility] ([facility])[address] [place] [address] RBC (Bld) [#/Vol] 5.23 10*6/uL Normal 4.20-5.70 [facility] Comment on above: Performed By: #### L [id number] ####[facility] ([facility])[address] [place] [address] WBC (Bld) [#/Vol] 6.03 10*3/uL Normal 4.00-10.60 [facility] Comment on above: Performed By: #### L [id number] ####[facility] ([facility])[address] [place] [address] CT ABDOMEN PELVIS W IV CONTR Anne 08-15-2024 CT ABDOMEN PELVIS W IV CONTRAST Normal [facility] CT CHEST W IV CONTRASTon CT CHEST W IV CONTRAST Normal [facility] Documentationon 08-15-2024 Documentation Normal [facility] PROTIME-INRon 08-15-2024 INR IN PPP BY COAGULATION ASSAY 1.06 Normal 0.90-1.10 [facility] Comment on above: Result Comment: ACCC P [...] 1995;108:231S-246S. Performed By: #### L [id number] ####[facility] ([facility])[address] [place] [address] PROTHROMBIN TIME (PT) IN PPP BY COAGULATION ASSAY 13.8 Seconds Normal 12.3-14.8 [facility] Comment on above: Performed By: #### L [id number] ####[facility] ([facility])[address] [place] [address] 30on 08-14-2024 30 Normal [facility] 30 Normal [facility] ANESon 08-14-2024 ANES Normal [facility] ANTI-XA (HEPARIN LEVEL)on HEPARIN UNFRACTIONATED (U/ML) IN PPP BY CHROMOGENIC METHOD 0.61 IU/mL Normal 0.3-0.7 [facility] Comment on above: Order Comment: Check anti-Xa level every 6 hours while on heparin infusion, or per protocol. Result Comment: Cindy roxaban and Apixaban will interfere with the anti Xa assay used to monitor UFH and LMWH. Performed By: #### L [id number] ####[facility] ([facility])[address] [place] [address] APTTon 08-14-2024 ACTIVATED PARTIAL THROMBOPLASTIN TIME IN PPP BY COAGULATION ASSAY 77.7 Seconds High 25.0-35.0 [facility] Comment on above: Result Comment: Clin ical significance of the APTT is questionable in the presence of heparin. Performed By: #### L [id number] ####[facility] ([facility])[address] [place] [address] BASIC METABOLIC PANELon 07-21 Anion gap [Moles/Vol] 6 mmol/L Low 7-20 [facility] Comment on above: Performed By: #### L [id number] ####[facility] ([facility])[address] [place] [address] Calcium [Mass/Vol] 9.0 mg/dL Normal 8.6-10.3 [facility] Comment on above: Performed By: #### L [id number] ####[facility] ([facility])[address] [place] [address] Chloride [Moles/Vol] 104 mmol/L Normal 98-107 [facility] Comment on above: Performed By: #### L [id number] ####[facility] ([facility])[address] [place] [address] CO2 [Moles/Vol] 32 mmol/L High 21-31 [facility] Comment on above: Performed By: #### L [id number] ####[facility] ([facility])[address] [place] [address] Creatinine [Mass/Vol] 0.91 mg/dL Normal 0.70-1.30 [facility] Comment on above: Performed By: #### L [id number] ####[facility] ([facility])[address] [place] [address] GLOMERULAR FILTRATION RATE ML/MIN/1.73 SQ M.PREDICTED 88.4 mL/min/1.73m*2 Normal >60.0 [facility] Comment on above: Result Comment: The [facility]???s estimated glomerular filtration rate (eGFR) will no [...] individuals. Performed By: #### L [id number] ####[facility] ([facility])[address] [place] [address] Glucose [Mass/Vol] 90 mg/dL Normal 70-100 [facility] Comment on above: Performed By: #### L [id number] ####[facility] ([facility])[address] [place] [address] Potassium [Moles/Vol] 4.4 mmol/L Normal 3.5-5.1 [facility] Comment on above: Performed By: #### L [id number] ####[facility] ([facility])[address] [place] [address] Sodium [Moles/Vol] 138 mmol/L Normal 136-145 [facility] Comment on above: Performed By: #### L [id number] ####[facility] ([facility])[address] [place] [address] Urea nitrogen [Mass/Vol] 16 mg/dL Normal 7-25 [facility] Comment on above: Performed By: #### L [id number] ####[facility] ([facility])[address] [place] [address] UREA NITROGEN/CREATININE (MASS RATIO) IN SER/PLAS 17.6 Normal [facility] Comment on above: Performed By: #### L [id number] ####[facility] ([facility])[address] [place] [address] CBC WITH AUTO DIFFERENTIALon 08-14-2024 Basophils (Bld) [#/Vol] 0.03 10*3/uL Normal 0.00-0.20 [facility] Comment on above: Performed By: #### L [id number] ####[facility] ([facility])[address] [place] [address] Basophils/100 WBC (Bld) 0.7 % Normal 0.0-1.0 [facility] Comment on above: Performed By: #### L [id number] ####[facility] ([facility])[address] [place] [address] Eosinophils (Bld) [#/Vol] 0.13 10*3/uL Normal 0.00-0.50 [facility] Comment on above: Performed By: #### L [id number] ####[facility] ([facility] [place] [address] Eosinophils/100 WBC (Bld) 3.1 % Normal 0.0-6.0 [facility] Comment on above: Performed By: #### L [id number] ####[facility] ([facility])[address] [place] [address] Erythrocyte distribution width (RBC) [Ratio] 12.7 % Normal 11.5-15.0 [facility] Comment on above: Performed By: #### L [id number] ####[facility] ([facility])[address] [place] [address] ERYTHROCYTE MEAN CORPUSCULAR HEMOGLOBIN CONCENTRATION (G/DL) BY AUTOMATED 33.9 g/dL Normal 32.0-35.0 [facility] Comment on above: Performed By: #### L [id number] ####[facility] ([facility])[address] [place] [address] Hematocrit (Bld) [Volume fraction] 46.3 % Normal 39.0-50.0 [facility] Comment on above: Performed By: #### L [id number] ####[facility] H[facility])[address] [place] [address] Hemoglobin (Bld) [Mass/Vol] 15.7 g/dL Normal 13.0-17.0 [facility] Comment on above: Performed By: #### L [id number] ####[facility] ([facility])[address] [place] [address] Immature granulocytes (Bld) [#/Vol] 0.02 10*3/uL Normal 0.00-0.20 [facility] Comment on above: Performed By: #### L [id number] ####[facility] ([facility])[address] [place] [address] Immature granulocytes/100 WBC (Bld) 0.5 % Normal 0.0-1.0 [facility] Comment on above: Performed By: #### L [id number] ####[facility] ([facility])[address] [place] [address] Lymphocytes (Bld) [#/Vol] 1.03 10*3/uL Low 1.20-4.00 [facility] Comment on above: Performed By: #### L [id number] ####[facility] ([facility])[address] [place] [address] Lymphocytes/100 WBC (Bld) 24.9 % Normal 20.0-45.0 [facility] Comment on above: Performed By: #### L [id number] ####[facility] ([facility])[address] [place] [address] MCH (RBC) [Entitic mass] 30.6 pg Normal 27.0-33.0 [facility] Comment on above: Performed By: #### L [id number] ####[facility] ([facility])[address] [place] [address] MCV (RBC) [Entitic vol] 90.3 fL Normal 82.0-98.0 [facility] Comment on above: Performed By: #### L [id number] ####[facility] ([facility])[address] [place] [address] Monocytes (Bld) [#/Vol] 0.41 10*3/uL Normal 0.10-1.00 [facility] Comment on above: Performed By: #### L [id number] ####[facility] ([facility])[address] [place] [address] Monocytes/100 WBC (Bld) 9.9 % Normal 5.0-12.0 [facility] Comment on above: Performed By: #### L [id number] ####[facility] ([facility])[address] [place] [address] Neutrophils (Bld) [#/Vol] 2.51 10*3/uL Normal 1.60-7.60 [facility] Comment on above: Performed By: #### L [id number] ####[facility] ([facility])[address] [place] [address] Neutrophils/100 WBC (Bld) 60.9 % Normal 40.0-72.0 [facility] Comment on above: Performed By: #### L [id number] ####[facility] ([facility])[address] [place] [address] NRBC (PER 100 WBCS) BY AUTOMATED COUNT 0.0 % Normal 0 [facility] Comment on above: Performed By: #### L [id number] ####[facility] ([facility])[address] [place] [address] PLATELETS (10*3/UL) IN BLOOD AUTOMATED COUNT 181 10*3/uL Normal 150-400 [facility] Comment on above: Performed By: #### L [id number] ####[facility] ([facility])[address] [place] [address] RBC (Bld) [#/Vol] 5.13 10*6/uL Normal 4.20-5.70 [facility] Comment on above: Performed By: #### L [id number] ####[facility] ([facility])[address] [place] [address] WBC (Bld) [#/Vol] 4.13 10*3/uL Normal 4.00-10.60 [facility] Comment on above: Performed By: #### L [id number] ####[facility] ([facility])[address] [place] [address] CONSULTon 08-14-2024 CONSULT Normal [facility] HEMOGLOBIN A1Con 08-14-2024 Glucose [Mass/Vol] 114 mg/dL Normal [facility] Comment on above: Performed By: #### L [id number] ####[facility] ([facility])[address] [place] [address] HbA1c (Bld) [Mass fraction] 5.6 % Normal 4.0-6.0 [facility] Comment on above: Performed By: #### L [id number] ####[facility] ([facility])[address] [place] [address] HPon 08-14-2024 HP Normal [facility] Normal [facility] LIPID PANELon 08-14-2024 CHOL/HDL 3.7 mg/dL Normal [facility] Comment on above: Performed By: #### L [id number] ####[facility] [place] [address] Cholesterol [Mass/Vol] 157 mg/dL Normal 120-200 [facility] Comment on above: Performed By: #### L [id number] ####[facility] [place] [address] Magnesium [Mass/Vol] 76 mg/dL Normal <150 [facility] Comment on above: Result Comment: TRIG LYCERIDE REFERENCE RANGE:20 YEARS AND OLDER CARDIOVASCULAR RISKLESS THAN 150 mg/dL LOW [id number] TO 199 mg/dL BORDERLINE [id number] mg/dL AND GREATER HIGH RISK Performed By: #### L [id number] ####[facility] ([facility])[address] [place] [address] Magnesium [Mass/Vol] 99 mg/dL Normal 0-160 [facility] Comment on above: Performed By: #### L [id number] ####[facility] ([facility])[address] [place] [address] Magnesium [Mass/Vol] 43 mg/dL Normal 23-92 [facility] Comment on above: Performed By: #### L [id number] ####[facility] ([facility])[address] [place] [address] NON HDL CHOL. (LDL+VLDL) 114 Normal [facility] Comment on above: Performed By: #### L [id number] ####[facility] ([facility])[address] [place] [address] TOTAL VLDL-C 15 mg/dL Normal 0-40 [facility] Comment on above: Performed By: #### L [id number] ####[facility] ([facility])[address] [place] [address] MAGNESIUMon 08-14-2024 Magnesium [Mass/Vol] 2.1 mg/dL Normal 1.9-2.7 [facility] Comment on above: Performed By: #### L [id number] ####[facility] ([facility] [place] [address] NURSNOTEon 08-14-2024 NURSNOTE Normal [facility] PHOSPHORUSon 08-14-2024 Magnesium [Mass/Vol] 2.9 mg/dL Normal 2.5-5.0 [facility] Comment on above: Performed By: #### L [id number] ####[facility] ([facility]AKER)[address] [place] [address] PROTIME-INRon 08-14-2024 INR IN PPP BY COAGULATION ASSAY 1.03 Normal 0.90-1.10 [facility] Comment on above: Result Comment: ACCC P [...] 1995;108:231S-246S. Performed By: #### L [id number] ####[facility] (BEAKER)[address] [place] [address] PROTHROMBIN TIME (PT) IN PPP BY COAGULATION ASSAY 13.5 Seconds Normal 12.3-14.8 [facility] Comment on above: Performed By: #### L [id number] ####[facility] (BEAKER)[address] [place] [address] PSA, SCREENINGon 08-14-2024 PROSTATE SPECIFIC AG (NG/ML) IN SER/PLAS 0.9 ng/mL Normal 0.4-4 [facility] Comment on above: Performed By: #### L [id number] ####[facility] ([facility])[address] [place] [address] TSHon 08-14-2024 THYROTROPIN (MIU/L) IN SER/PLAS BY DETECTION LIMIT <= 0.05 MIU/L 5.34 mIU/L Normal 0.34-5.60 [facility] Comment on above: Performed By: #### L [id number] ####[facility] ([facility])[address] [place] [address] TYPE AND SCREENon 08-14-2024 AB SCREEN Negative Normal [facility] Comment on above: Performed By: #### L [id number] ####[facility], ABO group Nom (Bld) O Normal [facility] Comment on above: Performed By: #### L [id number] ####[facility], RH TYPE IN BLOOD Negative Normal [facility] Comment on above: Performed By: #### L [id number] ####[facility], URINALYSISon 08-14-2024 BILIRUBIN, TOTAL PRESENCE IN URINE Negative Normal Negative [facility] Comment on above: Order Comment: Micro scopics not performed on urines with negative chemical reactions unless requested on original order. Performed By: #### L [id number] ####[facility] ([facility])[address] [place] [address] Clarity (U) Clear Normal Clear [facility] Comment on above: Order Comment: Micro scopics not performed on urines with negative chemical reactions unless requested on original order. Performed By: #### L [id number] ####[facility] ([facility])[address] [place] [address] Color (U) Light-Yellow Normal Colorless, Yellow, Light-Chicot ow [facility] Comment on above: Order Comment: Micro scopics not performed on urines with negative chemical reactions unless requested on original order. Performed By: #### L [id number] ####[facility] [place] [address] GLUCOSE (MG/DL) IN URINE Normal Normal Normal [facility] Comment on above: Order Comment: Micro scopics not performed on urines with negative chemical reactions unless requested on original order. Performed By: #### L [id number] ####[facility] ([facility] [place] [address] HEMOGLOBIN PRESENCE IN URINE Negative Normal Negative [facility] Comment on above: Order Comment: Micro scopics not performed on urines with negative chemical reactions unless requested on original order. Performed By: #### L [id number] ####[facility] ([facility])[address] [place] [address] Ketones Ql (U) Negative Normal Negative [facility] Comment on above: Order Comment: Micro scopics not performed on urines with negative chemical reactions unless requested on original order. Performed By: #### L [id number] ####[facility] ([facility])[address] [place] [address] LEUKOCYTE ESTERASE PRESENCE IN URINE BY TEST STRIP Negative Normal Negative [facility] Comment on above: Order Comment: Micro scopics not performed on urines with negative chemical reactions unless requested on original order. Performed By: #### L [id number] ####[facility] ([facility])[address] [place] [address] NITRITE PRESENCE IN URINE Negative Normal Negative [facility] Comment on above: Order Comment: Micro scopics not performed on urines with negative chemical reactions unless requested on original order. Performed By: #### L [id number] ####[facility] (BEAKER)[address] [place] [address] pH (U) 6.5 [pH] Normal 5.0-8.0 [facility] Comment on above: Order Comment: Micro scopics not performed on urines with negative chemical reactions unless requested on original order. Performed By: #### L [id number] ####[facility] (BEAKER)[address] [place] [address] Protein (U) [Mass/Vol] Negative Normal Negative [facility] Comment on above: Order Comment: Micro scopics not performed on urines with negative chemical reactions unless requested on original order. Performed By: #### L [id number] ####[facility] ([facility])[address] [place] [address] Specific gravity (U) [Rel density] 1.043 High 1.010-1.03 0 [facility] Comment on above: Order Comment: Micro scopics not performed on urines with negative chemical reactions unless requested on original order. Performed By: #### L [id number] ####[facility] ([facility])[address] [place] [address] UROBILINOGEN (MG/DL) IN URINE Normal Normal Normal [facility] Comment on above: Order Comment: Micro scopics not performed on urines with negative chemical reactions unless requested on original order. Performed By: #### L [id number] ####[facility] ([facility])[address] [place] [address] Orders Onlyon 08-07-2024 Orders Only Normal [facility] Orders Onlyon 07-30-2024 Orders Only Normal [facility] CA ECHO DOPPLER COMPLETEon 0 07-22-2024 [place] [address] Cardiology Report Signed Patient: Emma James MR#: [id number] : 1950 Acct:[id number] Age/Sex: 73 / M ADM Date: 07/22/24 Loc: CARD Attending Dr: DENNIS IRIZARRY Ordering Physician: DENNIS IRIZARRY Date of Service: 07/22/24 Procedure(s): CA echo doppler complete Accession Number(s): [id number] cc: DENNIS IRIZARRY Patient Name: EMMA JAMES MR#: [id number] : 1950 Exam Date: 07/22/2024 Ordering Doctor: [...] M.D. on 07/22/2024 (more content not included)... [facility] Radiology, Radiologi MD jairo - 07/22/2024 [place] [address] Cardiology Report Signed Patient: Emma James MR#: [id number] : 1950 Acct:[id number] Age/Sex: 73 / M ADM Date: 07/22/24 Loc: CARD Attending Dr: DENNIS IRIZARRY Ordering Physician: DENNIS IRIZARRY Date of Service: 07/22/24 Procedure(s): CA echo doppler complete Accession Number(s): [id number] cc: DENNIS IRIZARRY Patient Name: EMMA JAMES MR#: [id number] : 1950 Exam Date: 07/22/2024 Ordering Doctor: [...] Signed By: 07/22/24 1632 DD/ 1631 TD/TT: Infant Teacher: [facility] Radiology Study observation (narrative) [facility] CA ECHO DOPPLER COMPLETEOrde red By: Radiologist Radiology on 07-22-2024 [facility] Work Phone: XR CHEST 2 VIEWSon XR [...] signed and approved by the interpreting radiologist. [facility] Radiology Study observation (narrative) [facility] XR Chest 2 ViewsOrdered By: Lincoln Devine on 07-15-2024 [facility] Work Phone: MR KNEE RIGHT WO IV [...] discussed. Consent was given by the patient. [facility] [employer] [facility] XR Knee - right 1 or 2 [...] No acute bony process noted. Celso Montano RN HEMO DIALYSIS-SENIOR TERADATA DEVELOPER [facility] Radiology Study observation (narrative) [facility] CBC panel Auto (Bld)on 03-23 Erythrocyte distribution width (RBC) [Ratio] 13.6 % 11.6 - 15.4 % [facility] Hematocrit (Bld) [Volume fraction] 45.8 % 37.5 - 51.0 % [facility] Hemoglobin (Bld) [Mass/Vol] 15.3 g/dL 13.0 - 17.7 g/dL [facility] MCH (RBC) [Entitic mass] 29.9 pg 26.6 - 33.0 pg [facility] MCHC (RBC) [Mass/Vol] 33.4 g/dL 31.5 - 35.7 g/dL [facility] MCV (RBC) [Entitic vol] 90 fL 79 - 97 fL [facility] Platelets (Bld) [#/Vol] 197 10*3/uL [facility] RBC (Bld) [#/Vol] 5.11 10*6/uL [facility] WBC (Bld) [#/Vol] 5.6 10*3/uL [facility] Laboratory - Chemistry and C hemistry - challengeon 03-23-2024 Albumin [Mass/Vol] 4.3 g/dL 3.8 - 4.8 g/dL [facility] ALP [Catalytic activity/Vol] 85 U/L [facility] ALT [Catalytic activity/Vol] 19 U/L [facility] AST [Catalytic activity/Vol] 21 U/L [facility] Bilirubin [Mass/Vol] 0.5 mg/dL 0.0 - 1 .2 mg/dL [facility] Calcium [Mass/Vol] 9.3 mg/dL 8.6 - 10. 2 mg/dL [facility] Chloride [Moles/Vol] 102 mmol/L 96 - 10 6 mmol/L [facility] CO2 [Moles/Vol] 26 mmol/L 20 - 29 mmol/L [facility] Creatinine [Mass/Vol] 0.93 mg/dL 0.76 - 1.27 mg/dL [facility] Free PSA [Mass/Vol] 0.2 ng/mL N/A [facility] Comment on above: Reginaldo ECLIA methodol ogy. Free PSA/Total PSA [Mass fraction] 50 % [facility] Comment on above: The table below list [...] 86 mL/min/{1.73_m2} 59 - PINF mL/min/1.7 3 [facility] Globulin (S) [Mass/Vol] 2.3 g/dL 1.5 - 4.5 g/dL [facility] Glucose [Mass/Vol] 100 mg/dL High 70 - 99 mg/dL [facility] Potassium [Moles/Vol] 4.9 mmol/L 3.5 - 5.2 mmol/L [facility] Prostate specific Ag [Mass/Vol] 0.4 ng/mL 0.0 - 4.0 ng/mL [facility] Comment on above: Reginaldo ECLIA methodol ogy. According to the [employer], Serum PSA should decrease and [...] [Mass/Vol] 6.6 g/dL 6.0 - 8.5 g/dL [facility] Sodium [Moles/Vol] 140 mmol/L 134 - 144 mmol/L [facility] Urea nitrogen [Mass/Vol] 21 mg/dL 8 - 27 mg/dL [facility] Urea nitrogen/Creatinine [Mass ratio] 23 mg/mg 10 - 24 [facility] Lipid 1996 panelon 4 Cholesterol [Mass/Vol] 202 mg/dL High 100 - 199 mg/dL [facility] Cholesterol in HDL [Mass/Vol] 42 mg/dL 39 - PINF mg/dL [facility] Cholesterol in LDL [Mass/Vol] 115 mg/dL High 0 - 99 mg/dL [facility] Cholesterol in VLDL [Mass/Vol] 45 mg/dL High 5 - 40 mg/dL [facility] Triglyceride [Mass/Vol] 256 mg/dL High 0 - 149 mg/dL [facility] No Panel Informationon 03-23 Interpretation and review of laboratory results Abnormal [facility] Performed at: [address] [id number] Cutter And Presser: Tim Tate PhD, Phone: [phone] [facility] OPERATIVE NOTEon 01-12-2018 OPERATIVE NOTE OPERATIVE NOTEOPERAT ION DATE: 9-40-84NAZXOCZFGX:General.CO EOPERATIVE DIAGNOSIS: Bilateral inguinal hernias, left worse [...] the fascia. The fascia waselevated over the television camera operator's finger and divided. The external abdominis obliquefibers were reflected caudad and cephalad. The cord was circumferentiallydissected and the cremasteric fibers taken down. A Rachelle was passed aroundand it was retracted to [...] and the cremasteric fibers takendown over the television camera operator's hand. The floor was now carefully [...] taken to the Recovery Room in stable condition.[facility] Signed and Approved by: DR SONY LLOYD01/19/2018 10:51:00 Normal [facility] OVER READ - NCon 07-17-2017 OVER READ - NC DATE OF EXAM: Jul 17 2017 2:58PMCLINICAL HISTORY/ Name: JAMEY JAMESTUDY:OVER READ - NC; 07/17/2017 2:58 pmINDICATION:score. Hypercholesterolemia. Screening.COMPARISON:None. CESSION NUMBER(S):[id number] CLINICIAN:DENNIS LINK:Contiguous unenhanced axial images were obtained [...] findings.This interpretation, provided by the radiologists of [facility], excludes evaluation of the cardiovascular system, which iscovered in a separate report issued by the ordering cardiologists. The radiologists of [facility] have no responsibilityfor evaluating the structures of the cardiovascular system. Normal [facility] C-Reactive Proteinon 017 C reactive protein (CRP) 0.1 mg/dL Normal <0.9 [facility] Comment on above: Performed By: #### W SR, CMP, CRP, RF, CCP ####[facility] [place], [place] [phone] CCP Antibody, IgGon 03-13-20 17 CCP Antibody, IgG <15 Normal <20 [facility] Comment on above: Result Comment: < 20 units: Eajfyiwv34-30 units: Weak Tsuckuyh43-07 units: Moderate Positive> 60 units: Strong Positive Performed By: #### W SR, CMP, CRP, RF, CCP ####[facility] [address] [place], [place] [phone] CNOVon 03-13-2017 CNOV Office Visit (RHEUMN) ----EMMA JAMES ([id number]) 1950 MDate Time Provider Ivuvvkmsac16/23/17 1:25 PM DONTAE RUSSELL) ANTHONY During your visit today, we recorded the following information about you: Temperature Pulse Blood pressure Weight 97.6 degrees 71/minute 119/80 93.3 kg Height 1.791 Bony Dasilva MD 03/19/2017 1:41 PM AddendumKind[facility] Orthopaedic ANDamp; Rheumatologic InstituteDepartment of Rheumatic and [...] [address], 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 His hand pain in particular has prevented [...] Date- KNEE ARTHROSCOPY/SURGERY Bilateral- ROTATOR CUFF REPAIR i9Ycnovr History:No family history on file.Social History:Social HistorySubstance [...] kg (205 lb 9.6 oz) BMI 29.08 kg/g7OZBXIMI: Well appearing, sitting in chair, in NAD.HEENT: [...] withpatient?s care.Discussed with rheumatology staff, Dr. Dasilva.Dontae Seadrift, MDRheumatology Fellow, [phone]2016 1:51 PM++++++++++++++++++++++++++ ++++++++++++++++++++++++++++ +++++++++++++RHEUMATOLOGY STAFF PHYSICIAN NOTEPatient [...] Agree with trial ofduloxetine.Jm Dasilva MD, MSc, FRCPCDontae Russell MD 03/13/2017 3:25 PM AddendumIt was a pleasure seeing you in [facility]'s rheumatology office today.MEDICATIONS:- You can take Ibuprofen [...] needed. To make an appointmentyourself, please call [phone] (central scheduling). Call [phone] tospeak with the rheumatology front desk administrator.I will contact you by phone or by letter if there are results/recommendationsstill pending.My clinic contact information is...Juaquin Perry, Orthopaedic and Rheumatologic InstituteKindred HealthcareTelephone: [phone]: [phone]: [phone]: [facility] / [address] [address]Jklcwgxqj Provider: SELF [200]Allergies As of Date: 03/13/2017 [...] esophagitis [K21.9]Order(s):COMP METABOLIC PANEL [SQCMP] Order #: [id number] FUTURE SED RATE WESTERGREN [SQWSR] Order #: [id number] FUTURE C-REACTIVE PROTEIN (CRP) [SQCRP] Order #: [id number] FUTURE RHEUMATOID FACTOR BL [SQRF] Order #: [id number] FUTURE CCP ANTIBODY IGG [SQCCP] Order #: [id number] FUTURE XR HAND GENERAL 3V PA/LAT/OBL LT [1061313] Order #: [id number] FUTURE XR HAND GENERAL 3V PA/LAT/OBL RT [1217193] Order #: [id number] FUTURE XR KNEE SURVEY ARTHRITIS 1V AP BILAT [1823476] Order #: [id number] FUTURE acetaminophen (TYLENOL) 325 mg tabletTake 2 [...] It was a pleasure seeing you in [facility]'s rheumatology office today. MEDICATIONS: - You can [...] To make an appointment yourself, please call [phone] (central scheduling). Call [phone] to speak with the rheumatology front desk administrator. I will contact you by phone or by letter if there are results/recommendations still pending. My clinic contact information is... Dontae Russell MD Fellow, Orthopaedic and Rheumatologic Blue [facility] Appointment: [phone] Address: [address] [place] [address] / [place], [place] [address]Prescriptions ordered this encounter Disp Refills Start End [...] at bedtime. Disc: Course of therapy completed Dfrpysmjjjk-Sgpboipiu-Tdw C-Mn (GLUC* 03/28/2012 03/13/2017 Class: Historical Med Route: ORAL Sig: Take 1 capsule by mouth once daily. Disc: Course of therapy completedDisposition: Return if symptoms worsen or fail to improve.Follow-up and Disposition History RecordedEncounter Number: [id number] Status:Closed by JM DASILVA on 03/19/17 Normal [facility] Comp Metabolic Panelon 03-13 Alanine aminotransferase (ALT) 22 U/L Normal 10-54 [facility] Comment on above: Performed By: #### W SR, CMP, CRP, RF, CCP ####[place] [address] [address] [phone] Albumin 4.5 g/dL Normal 3.9-4.9 [facility] Comment on above: Performed By: #### W SR, CMP, CRP, RF, CCP ####[place] [address] [address] [place] [phone] Alkaline phosphatase (ALP) 52 U/L Normal 36-108 [facility] Comment on above: Performed By: #### W SR, CMP, CRP, RF, CCP ####[place] [address] [address] [phone] Anion gap 11 mmol/L Normal 9-18 [facility] Comment on above: Performed By: #### W SR, CMP, CRP, RF, CCP ####[address] [place] [phone] Aspartate aminotransferase (AST) 27 U/L Normal 14-40 [facility] Comment on above: Performed By: #### W SR, CMP, CRP, RF, CCP ####[place] [address] [address] [phone] Bilirubin (total) 0.4 mg/dL Normal 0.2-1.3 [facility] Comment on above: Performed By: #### W SR, CMP, CRP, RF, CCP ####[place] [address] [address] [phone] Calcium 10.0 mg/dL Normal 8.5-10.2 [facility] Comment on above: Performed By: #### W SR, CMP, CRP, RF, CCP ####[place] [address] [address] [place] [phone] Chloride 103 mmol/L Normal 97-105 [facility] Comment on above: Performed By: #### W SR, CMP, CRP, RF, CCP ####[place] [address] [address] [phone] CO2 28 mmol/L Normal 22-30 [facility] Comment on above: Performed By: #### W SR, CMP, CRP, RF, CCP ####[place] [address] [address] [phone] Creatinine 1.26 mg/dL High 0.73-1.22 [facility] Comment on above: Performed By: #### W SR, CMP, CRP, RF, CCP ####[place] [address] [address] [phone] eGFR (non-black) mL/min/{1.73_m2} Normal [facility] Comment on above: Performed By: #### W SR, CMP, CRP, RF, CCP ####[place] [address] [address] [phone] eGFR (non-black) 57 . Normal [facility] Comment on above: Result Comment: eGFR [...] #### W SR, CMP, CRP, RF, CCP ####[facility] [address] [phone] Glucose mass conc 84 mg/dL Normal 74-99 [facility] Comment on above: Result Comment: The [place] [employer] (ADA) provides guidance for cutoff [...] Standards of Medical Care in Diabetes 2016, [place] [employer]. Diabetes Care. 2016.39(Suppl 1). Performed By: #### W SR, CMP, CRP, RF, CCP ####[place] [phone] Potassium molar conc 4.7 mmol/L Normal 3.7-5.1 [facility] Comment on above: Performed By: #### W SR, CMP, CRP, RF, CCP ####[address] [phone] Protein 7.1 g/dL Normal 6.3-8.0 [facility] Comment on above: Performed By: #### W SR, CMP, CRP, RF, CCP ####[address] [phone] Sodium 142 mmol/L Normal 136-144 [facility] Comment on above: Performed By: #### W SR, CMP, CRP, RF, CCP ####[address] [phone] Urea nitrogen 23 mg/dL Normal 9-24 [facility] Comment on above: Performed By: #### W SR, CMP, CRP, RF, CCP ####[address] [phone] PROGRESSon 03-13-2017 PROGRESS HNO ID: [id number] thor: Beverly Meng RtService: (none)Author Type: (none)Type: Progress NotesFiled: 03/13/2017 4:01 PMNote Text: Radiology Service Progress NotePATIENT NAME: EMMA JamesMRN: [id number] OF SERVICE: March 13, 2017TIME: 4:01 PMPATIENT IDENTITY VERIFICATION COMPLETED USING TWO (2) METHODS: Patientconfirmed name verbally and Date of .PATIENT GENDER DATA: MalePATIENT RELEVANT IMPLANT DATA REVIEWED: YesRADIOLOGY DEPARTMENT: General X-ray: Exam(s) Completed: Lower ExtremityX-Ray(s): Knee, AP Only Bilateral and Wt. Bearing:Upper Extremity X-Ray(s): Hand, Bilateral :PERIPHERAL IV DATA: Not applicableSIGNED BY: Beverly Meng RtOct2016 4:01 PM Normal [facility] PROGRESS HNO ID: [id number] thor: Jm Hinojosa: (none)Author Type: PhysicianType: Progress NotesFiled: 03/19/2017 1:41 PMNote Text:[facility] InstituteDepartment of Rheumatic and Immunologic DiseasesThis consult was requested by the doctor listed below for an opinionregarding the chief complaint listed below, and my final recommendationswill be communicated to the requesting health care provider by way of [facility] medical record for internal providers or letter via the [facility] forexternal providers.Consulting Physician: SelfSUBJECTIVE:CC: Joint painHistory of [...] [place] [address] [place], 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 Juan report a history of PUD but this [...] Date- KNEE ARTHROSCOPY/SURGERY Bilateral- ROTATOR CUFF REPAIR [id number] History:No family history on file.Social History:Social HistorySubstance [...] kg (205 lb 9.6 oz) BMI 29.08 kg/[id number]: Well appearing, sitting in chair, in NAD.HEENT: [...] evidence of synovitis or tenderness with palpation. [id number] MCP slightly swollen but only tender with [...] rheumatology staff, Dr. Dasilva.Dontae Russell, MDRheumatology Fellow, [phone] 1:51 PM++++++++++++++++++++++++++ ++++++++++++++++++++++++++++ +++++++++++++RHEUMATOLOGY STAFF PHYSICIAN NOTEPatient [...] of duloxetine.Jm Dasilva MD, MSc, FRCPC Normal [facility] Rheumatoid Factoron 03-13-20 17 Rheumatoid Factor <10 Normal <16 [facility] Comment on above: Performed By: #### W SR, CMP, CRP, RF, CCP ####[facility] [place], [place] [phone] Sed Rate Westergrenon 2016 Sed Rate Westergren Unable to assay. Casimiro ntity not sufficient. Normal 0-15 [facility] Comment on above: Result Comment: Acco unt CreditedCalled [facility]859 03.14.2017 AL Performed By: #### W SR, CMP, CRP, RF, CCP ####[facility] [place], [place] [phone] XR HAND 3V PA/LAT/OBL LTon 1 XR [...] on the right.No other significant abnormality.IMPRESSION:No acute findings.Infant Teacher: [facility] Transcribe Date/Time: Mar 13 2017 4:35PDictated by : Garrett CASANOVA examination was interpreted and the report reviewed and electronically signed by: SHAY MATTHEWS MD on Mar 13 2017 4:37PM [id number] Normal [facility] XR HAND 3V PA/LAT/OBL RTon 1 XR [...] on the right.No other significant abnormality.IMPRESSION:No acute findings.Infant Teacher: [facility] Transcribe Date/Time: Mar 13 2017 4:35PDictated by : Garrett CASANOVA examination was interpreted and the report reviewed and electronically signed by: SHAY MATTHEWS MD on Mar 13 2017 4:37PM [id number] Normal [facility] XR KNEE SURVEY 1V AP BILon 1 [...] structures are intact.No other significant abnormality.IMPRESSION:Mild bilateral osteoarthritis.Stenotypist ist: [facility] Transcribe Date/Time: Mar 13 2017 4:36PDictated by : SHAY MATTHEWS MDThis examination was interpreted and the report reviewed and electronically signed by: SHAY MATTHEWS MD on Mar 13 2017 4:36PM [id number] Normal [facility] Vital Signs Date Time Vital Sign Value Performing Clinician Marian galvez 09-02-2024 09:22-0400 Body height 179.1 cm Dennis Garciastew [employer] Work Phone: [facility] 09-02-2024 09:22-0400 Body mass index (BMI) [Ratio] 28.66 kg/m2 Dennis Garciastew [employer] Work Phone: [facility] 09-02-2024 09:22-0400 Body weight 91.9 kg Dennis Irizarry [employer] Work Phone: [facility] 09-02-2024 09:22-0400 Diastolic blood pressure 70 mm[Hg] Dennis Bryankerrie DO Work Phone: [facility] 09-02-2024 09:22-0400 Heart rate 70 /min Dennis Garciastew [employer] Work Phone: [facility] 09-02-2024 09:22-0400 SaO2% (BldA) [Mass fraction] 93 % Dennis Irizarry DO Work Phone: [facility] 09-02-2024 09:22-0400 Systolic blood pressure 110 mm[Hg] Dennis Irizarry DO Work Phone: [facility] 07-15-2024 14:18-0500 Diastolic blood pressure 80 mm[Hg] Brooke Lynnion [employer]S [employer] Work Phone: [facility] 07-15-2024 14:18-0500 Heart rate 105 /min Brooke Didion [employer]S [employer] Work Phone: [facility] 07-15-2024 14:18-0500 SaO2% (BldA) [Mass fraction] 93 % Brooke Lynnion PARTS DRIVER Work Phone: [facility] 07-15-2024 14:18-0500 Systolic blood pressure 140 mm[Hg] Brooke Lynnion PARTS DRIVER Work Phone: [facility] 03-22-2024 08:57-0400 Body height 179.1 cm Dennis Irizarry DO Work Phone: [facility] 03-22-2024 08:57-0400 Body mass index (BMI) [Ratio] 29.85 kg/m2 Dennis Irizarry DO Work Phone: [facility] 03-22-2024 08:57-0400 Body weight 95.71 kg Dennis Irizarry DO Work Phone: [facility] 03-22-2024 08:57-0400 Diastolic blood pressure 60 mm[Hg] Dennis Irizarry DO Work Phone: [facility] 03-22-2024 08:57-0400 Heart rate 73 /min Dennis Garciak DO Work Phone: [facility] 03-22-2024 08:57-0400 SaO2% (BldA) [Mass fraction] 96 % Dennis Garciak DO Work Phone: [facility] 03-22-2024 08:57-0400 Systolic blood pressure 140 mm[Hg] Dennis Garciak DO Work Phone: [facility] Encounters Encounter Date Encounter Type Care Provider Facility Start: 12-25-2024 End: 12-27-2024 [facility] Result Encounter Generic External Data Provider [facility] Unsolicited Start: 12-25-2024 End: 12-27-2024 [facility] Result Encounter Generic External Data Provider [facility] Unsolicited Start: 12-11-2024 End: 12-27-2024 [facility] Result Encounter Generic External Data Provider [facility] Unsolicited Start: 12-11-2024 End: 12-27-2024 [facility] Result Encounter Generic External Data Provider [facility] Unsolicited Start: 12-07-2024 End: 12-07-2024 [facility] Result Encounter Generic External Data Provider [facility] Unsolicited Start: 12-07-2024 End: 12-07-2024 [facility] Result Encounter Generic External Data Provider [facility] Unsolicited Start: 11-25-2024 End: 11-25-2024 [facility] Result Encounter Generic External Data Provider [facility] Unsolicited Start: 11-25-2024 End: 11-25-2024 [facility] Result Encounter Generic External Data Provider [facility] External Department Unsolicited Start: 11-21-2024 End: 11-21-2024 [facility] Start: 11-14-2024 End: 11-14-2024 Clinisync Result Encounter [...] External Department Unsolicited Start: 09-11-2024 ambulatory ARMIDA GUTIERREZ [facility] Start: 09-10-2024 [facility]: 09-05-2024 ambulatory REAL HOWARD [facility] Start: 09-02-2024 End: 09-02-2024 Transitional care manage srvc 14 day discharge Dennis Irizarry DO Work Phone: [facility] Comment on above: Atrial fibrillation, unspecified type (HCC) (Primary Dx); Bilateral leg edema; S/P Maze operation for atrial fibrillation; Status post ligation of left atrial appendage; S/P CABG x 3; Acute diastolic heart failure secondary to coronary artery disease (HCC); Blood loss anemia; Elevated liver enzymes; Mixed hyperlipidemia Start: 09-02-2024 End: 09-02-2024 ambulatory DENNIS IRIZARRY Not Available Start: 08-29-2024 End: 08-29-2024 ambulatory [facility] Start: 08-29-2024 End: 08-29-2024 ambulatory [facility] Start: 08-21-2024 Evaluation and manag ement of inpatient [facility] Start: 08-21-2024 Evaluation and manag ement of inpatient [facility] Start: 08-20-2024 Evaluation and manag ement of inpatient [facility] Start: 08-19-2024 Evaluation and manag ement of inpatient [facility] Start: 08-19-2024 Evaluation and manag ement of inpatient LLUVIA DRISCOLL [facility] Start: 08-19-2024 Evaluation and manag ement of inpatient [facility] Start: 08-18-2024 Evaluation and manag ement of inpatient [facility] Start: 08-18-2024 Evaluation and manag ement of inpatient REAL J LEE [facility] Start: 08-17-2024 Evaluation and manag ement of inpatient [facility] Start: 08-17-2024 Evaluation and manag ement of inpatient [facility] Start: 08-16-2024 Evaluation and manag ement of inpatient [facility] Start: 08-16-2024 Evaluation and manag ement of inpatient [facility] Start: 08-15-2024 [facility] Start: 08-14-2024 End: 08-14-2024 Evaluation and management of inpatient [facility] Start: 08-14-2024 [facility] Start: 08-14-2024 Evaluation and manag ement of inpatient [facility] Start: 08-14-2024 ambulatory [facility] Start: 08-14-2024 End: 08-21-2024 Evaluation and management of inpatient [facility] Start: 07-30-2024 End: 07-30-2024 ambulatory [facility] Start: 07-22-2024 End: 07-22-2024 Clinisync Result Encounter Dennis Irizarry DO Work Phone: [facility] Unsolicited Start: 07-22-2024 End: 07-22-2024 Clinisync Result Encounter Dennis Irizarry DO Work Phone: [facility] Unsolicited Start: 07-15-2024 End: 07-15-2024 Office outpatient visit 25 minutes Brooke Delgado [employer]S DR[employer] Work Phone: [facility] Comment on above: Shortness of breath (Primary Dx); Bilateral leg edema Start: 07-15-2024 End: 07-15-2024 ambulatory BROOKE Jamil DELGADO Not Available Start: 05-10-2024 End: 05-10-2024 Bamboo flowsheet Jr. Armida Rod Stepanic DO Work Phone: [facility] Start: 05-10-2024 End: 05-10-2024 Bamboo flowsheet Jr. Armida Rod Stepanic DO Work Phone: [facility] Start: 05-10-2024 End: 05-10-2024 ambulatory MadayARMIDA STEPANIC Not Available Start: 05-10-2024 End: 05-10-2024 Office outpatient visit 15 minutes JrMaday Armida Rod Stepanic DO Work Phone: [facility] Comment on above: Right knee pain, uns pecified chronicity (Primary Dx); Primary osteoarthritis of right knee Start: 04-29-2024 End: 04-29-2024 ambulatory PAM B APLING Not Available Start: 04-24-2024 End: 04-24-2024 Bamboo flowsheet Pam B Apling PARTS DRIVER Work Phone: [facility] Start: 04-24-2024 End: 04-24-2024 Bamboo flowsheet Pam B Apling PARTS DRIVER Work Phone: [facility] Start: 04-24-2024 End: 04-24-2024 Office outpatient visit 15 minutes Pam B Apling PARTS DRIVER Work Phone: [facility] Comment on above: Right knee pain, uns pecified chronicity (Primary Dx); Primary osteoarthritis of right knee; Internal derangement of knee, right Start: 04-24-2024 End: 04-24-2024 ambulatory PAM B APLING Not Available Start: 04-17-2024 End: 04-17-2024 Telephone encounter Ashley Valerio PARTS DRIVER Work Phone: [facility] Start: 04-09-2024 End: 04-09-2024 Bamboo flowsheet Celso Montano PARTS DRIVER Work Phone: [facility] Start: 04-09-2024 End: 04-09-2024 Bamboo flowsheet Celso Montano PARTS DRIVER Work Phone: [facility] Start: 04-09-2024 End: 04-09-2024 ambulatory CELSO MONTANO Not Available Start: 04-09-2024 End: 04-09-2024 Office outpatient new 45 minutes Celso Montano PARTS DRIVER Work Phone: [facility] Comment on above: Primary osteoarthrit is of right knee (Primary Dx); Right knee pain, unspecified chronicity Start: 03-22-2024 End: 03-22-2024 Office outpatient visit 25 minutes Dennis Irizarry DO Work Phone: [facility] Comment on above: Benign fasciculation -cramp syndrome (Primary Dx); Obesity, unspecified class, unspecified obesity type, unspecified whether serious comorbidity present; Hypercholesteremia (CMS/HCC); Screening PSA (prostate specific antigen) Start: 03-22-2024 End: 03-22-2024 ambulatory DENNIS IRIZARRY Not Available Start: 09-15-2023 End: 09-15-2023 ambulatory MARIELLE PALMER Not Available Start: 01-12-2018 End: 01-13-2018 Patient encounter SONY GABINO Facility:H1 Start: 01-08-2018 Encounter for preprocedural cardiovascular examination SONY LLOYD [facility] Start: 01-05-2018 End: 01-06-2018 Patient encounter SONY GABINO Facility:[facility]1 Start: 07-17-2017 Ambulatory DENNIS IRIZARRY Facility :[id number] Start: 07-17-2017 Ambulatory Facility:[id number] Start: 03-13-2017 End: 03-13-2017 Ambulatory JM DASILVA [facility] Start: 03-13-2017 End: 03-13-2017 Ambulatory DONTAE RUSSELL (FEL) [facility] Encounter for preprocedural cardiovascular examination SONY LLOYD [facility] Procedures Date Procedure Procedure Detail Performing Clinician Start: 12-25-2024 ITP Generic Ex ternal Data Provider Start: 12-11-2024 ITP Generic Ex ternal Data Provider Start: 12-07-2024 CA ECHO DOPPLER COMPLETE Generic External Data Provider Start: 11-25-2024 ALL CBC WITH AUTO DIFF [...] &/inj major jt/bursa w/o us Celso Montano PARTS DRIVER Work Phone: Start: 04-09-2024 Radiologic examinati on knee 1/2 views Celso Montano PARTS DRIVER Work Phone: Start: 03-22-2024 Comprehensive metabo lic panel Dennis Irizarry DO Work Phone: Start: 03-22-2024 Lipid panel Dennis mosley DO Work Phone: History of coronary artery bypass grafting S/P CABG x 3 Dennis Irizarry DO Work Phone: Plan of Treatment Date Care Activity Detail Author Start: 09-27-2026 Screening for malign ant neoplasm of colon [facility] Start: 03-28-2025 End: 03-28-2025 Patient encounter procedure [facility] Start: 01-20-2025 Influenza vaccination [facility] Start: 11-18-2024 Influenza vaccination Influenz a Vaccine (#1) [facility] Comment on above: Postponed from 01/20 (Patient Refused) Start: 09-14-2024 Medicare Annual Well ness (AWV) Medicare Annual Wellness (AWV) [facility] Start: 07-15-2024 End: 07-15-2025 ECG 12 lead ECG 12 lead ECG Routine Shortness of breath Expected: 07/15/2024 (Approximate), Expires: 07/15/2025 [facility] Work Phone: Comment on above: Expected: 07/15/2024 (Approximate), Expires: 07/15/2025 Start: 04-29-2024 End: 04-29-2024 Professional / ancillary services management 04/29/2024 8:30 AM EST Ancillary Procedure [facility] [address] [place] [address] [facility] Start: 04-24-2024 End: 04-24-2025 MR Knee - right WO contrast MR knee right wo IV contrast Imaging Routine Internal derangement of knee, right Expected: 04/24/2024 (Approximate), Expires: 04/24/2025 [facility] Work Phone: Comment on above: Expected: 04/24/2024 (Approximate), Expires: 04/24/2025 Start: 04-24-2024 End: 04-24-2024 Patient encounter procedure [facility] Comment on above: Right knee pain, uns pecified chronicity (Primary Dx); Primary osteoarthritis of right knee Start: 09-03-2023 Medicare Annual Well ness (AWV) Medicare Annual Wellness (AWV) [facility] Start: 1950 Screening for malign ant neoplasm of colon [facility] Immunizations Immunization Date Immunization Notes Care Provider Camilo rush 03-30-2020 zoster vaccine recombinant Juan ricketts Otilio PARTS DRIVER Work Phone: [facility] 03-26-2019 pneumococcal polysaccharide vaccine, 23 valent Celso Montano PARTS DRIVER Work Phone: [facility] 04-19-2018 pneumococcal conjuga te vaccine, 13 valent Celso Montano PARTS DRIVER Work Phone: [facility] 07-14-2010 hepatitis A and hepa titis B vaccine Celso Montano PARTS DRIVER Work Phone: [facility] 07-14-2010 zoster vaccine, live Celso Audrey snowden PARTS DRIVER Work Phone: [facility] 05-11-2010 hepatitis A and hepa titis B vaccine Celso Montano PARTS DRIVER Work Phone: [facility] 08-28-2009 hepatitis A and hepa titis B vaccine Celso Montano PARTS DRIVER Work Phone: [facility] 02-23-2009 tetanus toxoid, redu leia diphtheria toxoid, and acellular pertussis vaccine, adsorbed Celso Montano PARTS DRIVER Work Phone: [facility] Payers Date Payer Category Payer Private Health Insurance [facility] [place] [id number] 2023 Unknown [id number] 2017 Medicare MEDICARE [id number] 1959 Medicare [id number] 1960 Medicare [id number] 1949 Unknown [id number]. 2.1258 1949 Unknown [id number] [id number]. 2.1258 1949 Unknown [id number] [id number]. 2.1258 1949 Unknown [id number] [id number]. 2.1258 1949 Unknown [id number] [id number]. 2.1258 1949 Unknown [id number] [id number]. 2.1258 1949 Unknown [id number] [id number]. 2.1258 1949 Unknown [id number] [id number]. 2.1258 1949 Unknown [id number] [id number]. 2.1258 1949 Unknown [id number] [id number]. 2.9 Unknown [id number] Social History Date Type Detail Facility Start: 09-15-2023 End: 09-02-2024 Tobacco smoking status NHIS Occasional tobacco smoker [facility] History of [...] Healthcare Start: 09-02-2024 Alcohol Comment Occasional [facility] Clinical Notes 03-22-2024 to 11-21-2024 Dennis Irizarry, DO - 09/02/2024 9:30 AM Trey Delgado, PARTS DRIVER - 07/15/2024 2:00 PM ESTJrMaday Ramirez, DO - 05/10/2024 8:15 AM Yaniv Jackson, PARTS DRIVER - 04/24/2024 8:15 AM EST Note Date & Type Note Facility 11-21-2024 Note [facility] 09-11-2024 Note [facility] 09-10-2024 Note [facility] 09-05-2024 Note [facility] 09-02-2024 History of Present illness Narrative Images [...] Flowsheet Row Patient Outreach from 08/22/2024 in [facility] with Cris Owens LPN Hospital Information ED, Hospital or Usp Facility Discharge? Hospital Patient has been contacted within two business days of discharge Yes Diagnosis Dyspnea, abnormal stress test, multi-vessel coronary artery stenosis, S/P CABG, coronary arteriosclerosis, pain Discharge Date 08/21/24 Discharged To: Home Setting Discharge Hospital [facility] Engagement Call Start Time 152 Admission Date 08/14/24 Medications Discharge medications reviewed [...] Not at risk (08/29/2024) Received from [facility] PHQ-2 Patient Health Questionnaire-2 Score: 0 FAMILY HISTORY: Family History Problem Relation Name Age of Onset Heart failure Mother Ada Hypertension Mother Ada Diabetes Sister Nadia Paul Diabetes Brother Casey Heart disease Maternal Grandmother Alfreda Cancer Paternal Grandmother Elizabeth Diabetes Paternal Grandmother [...] with 1+ edema Neurologic normal Results 08/14/2024 [facility] Severe, three-vessel coronary artery disease including the [...] 3. S/P Maze operation for atrial fibrillation [facility] 4. Status post ligation of left atrial appendage [facility] 5. S/P CABG x 3 [facility] -DeRiso LOPEZ TO LAD, SVG TO 2ND [...] low intensity statin documented in this encounter [facility] 08-29-2024 Note [facility] 08-21-2024 Note Sent final AVS to [address] [facility] 08-21-2024 Note [facility] 08-21-2024 Note [facility] 08-21-2024 Note [facility] 08-21-2024 Note [facility] 08-21-2024 Note [facility] 08-20-2024 Note [facility] 08-20-2024 Note [facility] 08-20-2024 Note [facility] 08-20-2024 Note [facility] 08-20-2024 Note [facility] 08-20-2024 Note [facility] 08-19-2024 Note [facility] 08-19-2024 Note [facility] 08-19-2024 Note [facility] 08-19-2024 Note [facility] 08-19-2024 Note [facility] 08-19-2024 Note [facility] 08-19-2024 Note [facility] 08-19-2024 Note [facility] 08-18-2024 Note [facility] 08-18-2024 Note [facility] 08-18-2024 Note [facility] 08-17-2024 Note [facility] 08-17-2024 Note [facility] 08-17-2024 Note [facility] 08-16-2024 Note Consult rec'd for s/ p CABG. Patient had surgery today. Patient is not appropriate for assessment today. SW to follow. [facility] 08-16-2024 Note Patient treatments a re sufficient at this time, no need for change. [facility] 08-16-2024 Note [facility] 08-16-2024 Note Peripheral IV Date/Time: 08/16/2024 8:10 AM Inserted by: Federico Ramon MD Placement Needle size: 14 G Laterality: right Location: wrist Local anesthetic: none Site prep: alcohol Technique: anatomical landmarks Attempts: 1 [facility] 08-16-2024 Note [facility] 08-16-2024 Note [facility] 08-16-2024 Note [facility] 08-16-2024 Note [facility] 08-16-2024 Note [facility] 08-15-2024 Note [facility] 08-15-2024 Note Bedside spirometry c ompleted and in supervisor intermediates. [facility] 08-15-2024 Note [facility] 08-15-2024 Note [facility] 08-14-2024 Note [facility] 08-14-2024 Note Admit to step down Ambulate as tolerated Regular cardiac diet Daily bmp and cbc to monitor kidney function, electrolytes, hgb and wbc Case will be seen and discussed with attending physician [facility] 08-14-[address] surgery consulted by cardiology, will evaluate patient Will start heparin gtt 4 hours after wrist band removed post cath [facility] 08-14-2024 Note Will start heparin g tt 4 hours after wrist band removed post cath [facility] 08-14-2024 Note Continuous pulse [facility] 08-14-2024 Note Patient underwent he art cath and found to have multi-vessel heart disease Cardiology consulted [facility] 08-14-2024 Note Continue Protonix in place of omeprazole [facility] 07-30-2024 Note [facility] 07-15-2024 History of Present illness Narrative Images [...] Brooke Delgado NP documented in this encounter [facility] 05-10-2024 History of Present illness Narrative Images from the original note were not included. HISTORY OF PRESENT ILLNESS: EST PT Emma James is an 73 y.o. @ male. (EST PT W/ LIANA) RECHECK (R) KNEE ; HERE FOR MRI RESULTS 04/29/24 IN [facility] XRAYS, 04/09/24 IN [facility] MRI, 04/29/24 IN [facility] NO MDP / PREDNISONE [...] requiring urgent evaluation. documented in this encounter [facility] 04-24-2024 History of Present illness Narrative Images [...] No acute bony process noted. Celso Montano RN HEMO DIALYSIS-SENIOR TERADATA DEVELOPER Assessment/Plan Encounter Diagnoses: ICD-10-CM 1. Right knee pain, unspecified chronicity M25.561 2. Primary osteoarthritis of right knee M17.11 3. Internal derangement of knee, right M23.91 MR knee right wo IV contrast discussion of due to failure of conservative treatment would recommend an MRI of the right knee without contrast, activities as tolerated, f/u s/p MRI to be done at [facility] documented in this encounter [facility] 04-17-2024 Telephone encounter Note See email to pt. [facility] 04-17-2024 Miscellaneous Notes See email to pt. documented in this encounter [facility] 04-09-2024 History of Present illness Narrative Associated [...] No acute bony process noted. Celso Montano APRN-CORA XR knee 1 or 2 views right [...] No acute bony process noted. Celso Montano APRN-SENIOR TERADATA DEVELOPER L Inj/Asp: R knee on 04/09/2024 12:39 [...] symptoms develop for requiring urgent evaluation. Celso Montano, JOHNATHON-SENIOR TERADATA DEVELOPER documented in this encounter [facility] 03-22-2024 History of Present illness Narrative Images [...] last meal was 2 packs of [employer] cookies and a glass of milk, consumed [...] despite having eaten two packs of [employer] cookies and a glass of milk an [...] total and free documented in this encounter [facility] Healthcare Evaluation note Diagnosis Primary osteoarthritis of [...] Shortness of breath [facility] Diagnosis Atrial fibrillation, unspecified type [...] hyperlipidemia Mixed hyperlipidemia documented in this encounter [facility] Healthcare Summary Purpose Family History No Family [...] section and content) DATE CREATED AUTHOR 11/10/2017 [facility] DATE CREATED AUTHOR AUTHOR'S ORGANIZ ATION 11/10/2017 [facility] DATE CREATED AUTHOR AUTHOR'S ORGANIZ ATION 11/14/2017 [facility] DATE CREATED AUTHOR AUTHOR'S ORGANIZ ATION 03/15/2018 [facility] DATE CREATED AUTHOR AUTHOR'S ORGANIZ ATION 09/02/2024 [facility] EPIC DATE CREATED AUTHOR AUTHOR'S ORGANIZ ATION 12/20/2024 [facility] Care Teams (unrecognized sec tion and content) Glue Maker Relationship Specialty Start Date End Date Dennis Irizarry DO [address] [place] [address] PCP - General Internal Medicine 09/27/22 Dennis Irizarry, DO [address] [place] [address] PCP - ACO Reach 10/13/22 Glue Maker Relationship Specialty Start Date End Date Dennis Irizarry, [address] [place] [address] PCP - General Internal Medicine 09/27/22 Dennis Irizarry, DO [address] [place] [address] PCP - ACO Reach 10/13/22 Glue Maker Relationship Specialty Start Date End Date Dennis Irizarry, [address] [place] [address] PCP - General Internal Medicine 09/27/22 Dennis Irizarry, [address] [place] [address] PCP - ACO Reach 10/13/22 Glue Maker Relationship Specialty Start Date End Date Dennis Irizarry, [address] [place] [address] PCP - General Internal Medicine 09/27/22 Dennis Irizarry, [address] [place] [address] PCP - ACO Reach 10/13/22 Glue Maker Relationship Specialty Start Date End Date Dennis Irizarry, [address] [place] [address] PCP - General Internal Medicine 09/27/22 Dennis Irizarry, [address] [place] [address] PCP - ACO Reach 10/13/22 Glue Maker Relationship Specialty Start Date End Date Dennis Irizarry, [address] [place] [address] PCP - General Internal Medicine 09/27/22 Dennis Irizarry, [address] [place] [address] PCP - ACO Reach 10/13/22 Glue Maker Relationship Specialty Start Date End Date Dennis Irizarry, [address] [place] [address] PCP - General Internal Medicine 09/27/22 Dennis Irizarry, [address] [place] [address] PCP - ACO Reach 10/13/22 Glue Maker Relationship Specialty Start Date End Date Dennis Irizarry, [address] [place] [address] PCP - General Internal Medicine 09/27/22 Dennis Irizarry, [address] [place] [address] PCP - ACO Reach 10/13/22 Glue Maker Relationship Specialty Start Date End Date Dennis Irizarry, [address] [place] [address] PCP - General Internal Medicine 09/27/22 Dennis Irizarry, [address] [place] [address] PCP - ACO Reach 10/13/22 Glue Maker Relationship Specialty Start Date End Date Dennis Irizarry, [address] [place] [address] PCP - General Internal Medicine 09/27/22 Dennis Irizarry, [address] [place] [address] PCP - ACO Reach 10/13/22 Glue Maker Relationship Specialty Start Date End Date Dennis Irizarry, [address] [place] [address] PCP - General Internal Medicine 09/27/22 Dennis Irizarry, [address] [place] [address] PCP - ACO Reach 10/13/22 Glue Maker Relationship Specialty Start Date End Date Dennis Irizarry DO [address] [place] [address] PCP - General Internal Medicine 09/27/22 Dennis Irizarry, [address] [place] [address] PCP - ACO Reach 10/13/22 Glue Maker Relationship Specialty Start Date End Date Dennis Irizarry DO [address] [place] [address] PCP - General Internal Medicine 09/27/22 Dennis Irizarry, [address] [place] [address] PCP - ACO Reach 10/13/22 Reason for [...] BE BASED ON THE PRIMARY CLINICAL RECORDS. [email or web address] provides no warranty or guarantee of the accuracy or completeness of information in this document.
== END 2025-01-15 11:19 | disposition home or self-care (01) ==
PROVIDERS: Family Provider Internal Medicine; PCP Internal Medicine; Visit Provider Internal Medicine Interventional Cardiology
DX: R06.09 Other forms of dyspnea (principal)
CPT/HCPCS: 71046

== ENCOUNTER 2025-04-10 06:45 | Outpatient (OUT) | payer MEDICARE, OTHER, SELFPAY ==
--- OUTSIDE RECORDS SUMMARY | 2025-03-28 09:00 | XMS_ITS | Encounter Summary ---
Author Organization [facility] Address [address] [place] [address] Care Team Providers Care Security Supervisor Name Role Phone Sacha Irizarry DO Primary Care Provider Sacha Irizarry DO Unavailable [phone] Giuliano Finn MD Unavailable Laina Mcqueen MD Unavailable [phone] Reason for Visit * ReasonCommentsMedicare Annual Wellness Visit Subsequent Encounter Details DateTypeDepartmentCare Team (Latest Contact Info)Wtdnegmwrym72/07/2025 9:00 AM ESTOffice Visit [facility] [address] [facility] [address] [place] [phone] Sacha Irizarry DO [address] [facility] [address] [place] [address] Mixed hyperlipidemia (Primary Dx); S/P CABG x 3; S/P Maze operation for atrial fibrillation; Status post ligation of left atrial appendage; Gastroesophageal reflux disease without esophagitis; Hx of atrial fibrillation without current medication; Medicare annual wellness visit, subsequent; ACP (advance care planning); Generalized osteoarthritis of multiple sites Social History Tobacco UseTypesPacks/DayYears UsedDateSmoking Tobacco: Some DaysCigarsSmokeless Tobacco: NeverAlcohol UseStandard Drinks/WeekCommentsYes3 (1 standard drink = 0.6 oz pure alcohol)OccasionalAUDIT-CAnswerDate RecordedQ1: How often do you have a drink containing alcohol?2-4 times a month09/15/2023Q2: How many drinks containing alcohol do you have on a typical day when you are drinking?1 or 2 09/15/2023Q3: How often do you have six or more drinks on one occasion?Never 09/15/2023HQ-2AnswerDate RecordedPatient Health Questionnaire-2 Score0 03/28/2025Sex and Gender InformationValueDate RecordedSex Assigned at BirthNot on fileLegal ApiNbfr9208/03/2022 6:48 PM EDTGender IdentityNot on fileSexual OrientationNot on file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 Start DateJob End DateFarmers, Ranchers, and Other Agricultural ManagersNot on fileNot on fileNot on file documented as of this encounter Last Filed Vital Signs Vital SignReadingTime TakenCommentsBlood Zmojeoxt423/6203/28/2025 9:16 AM EST Ildws792203/28/2025 9:16 AM ESTTemperature--Respiratory Rate--Oxygen Cfvbzbqxef51% 03/28/2025 9:16 AM ESTInhaled Oxygen Concentration--Pecexu58.9 kg (207 lb) 03/28/2025 9:16 AM FTJIbewnb290.1 cm (5' 10.5 )03/28/2025 9:16 AM ESTBody Mass Index29.28105/28/2024 9:16 AM ESTdocumented in this encounter Functional Status * Over the past 2 weeks, how often have you been bothered by any of the following problems?QuestionAnswerDate of AssessmentAuthorLittle interest or pleasure in doing thingsNot at all03/28/2025 9:00 AM Urmila Fox LPN Feeling down, depressed, or hopelessNot at all03/28/2025 9:00 AM Urmila Fox LPNPatient Health Questionnaire-2 Ksgsd05105/28/2024 9:00 AM Urmila Fox LPN documented as of this encounter Patient Instructions * Patient Instructions* Urmila Herman LPN - 03/28/2025 9:00 AM EST Medicare Wellness Visit - Summary Today we reviewed: Your health history, medications, and providers Preventive screenings and vaccines Safety, memory, mood, and lifestyle habits Next Steps: [x] Complete recommended screenings/tests: [x] Stay up to date on vaccines (flu, pneumonia, shingles, COVID, etc.) [x] Aim for healthy habits: balanced diet, regular activity, no smoking, limit alcohol [x] Practice safety: remove fall risks, keep medication list updated [x] Schedule routine dental and eye exams Follow-Up: Next wellness visit: once every 12 months Call us with new health concerns Goal: Prevention and staying healthy! documented in this encounter Progress Notes * Sacha Irizarry, - 03/28/2025 9:00 AM EST Images from the original note were not included. Patient presents today for Annual MW. He continues with BARRIENTOS HPI: HPI History of Present Illness The patient presents for evaluation of shortness of breath.First noticed his symptoms in 05/2024 while in [place], when he experienced BARRIENTOS,fatigue after walking miles He continues to experience dyspnea on exertion, which was initially attributed to severe CAD ,untilsymptoms persisted following 3V CABG ( LOPEZ-LAD, SVG to OM and RCA), with initial EF 45%-50% and post surgical 50%. Recently his symptoms have been attributed to asthma although PFTs reflective of restrictive lung dz. He has a history of exposure many years ago to corn mold , as he was not with protective ventilatorbut he believes his current symptoms are unrelated. He was recently prescribed a LABA/ICS however, he has not found these treatments to be effective. He had very brief exposure to Amiodarone post op He reports no discomfort other than shortness of breath. He has not been taking Lipitor. Currently takes a loop diuretic, taking one pill daily and two pills every third or fourth day if his weight increases. His weight fluctuates between 202 and 204 pounds, and he recently weighed 208 pounds, He also experiences muscle pain during physical activities such as climbing stairs or lifting his arms, a symptom he has had for years but which has recently worsened. He reports no joint issues, except for his left hip. He does not experience color changes in his fingers during cold weather. He last felt well in 04/2024. 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 Recent evaluation by Pulmonary at [facility] for BARRIENTOS PFT showed mild restrictive lung disease with mildly decreased DLCO History of Allergic rhinitis on Flonase and Singulair Will give a trial of ICS/LABA and follow up in 3 months Cardiac hx He is a 73-year-old man who underwent [...] which he was seen Dr. Willie Dos Santos HISTORIES: Health Maintenance Topic Date Due Medicare Annual Wellness (AWV) 09/03/2023 Influenza Vaccine (1) 11/18/2025 (Originally 01/20/2025) Colorectal Cancer Screening 09/27/2026 Pneumococcal Vaccine: 65+ Years Completed COVID-19 Vaccine Discontinued PAST MEDICAL HISTORY: Medical History[1] SURGICAL HISTORY: Surgical History[2] SOCIAL HISTORY: Social History[3] Depression: Not at risk (03/28/2025) PHQ-2 PHQ-2 Score: 0 FAMILY HISTORY: Family History[4] MEDICATIONS: Current Outpatient Medications Medication Instructions acetaminophen (TYLENOL) 500 mg, Every 6 hours PRN albuterol HFA 90 mcg/act inhaler 2 puffs, Every 4 hours PRN ASPIRIN 81 PO 81 mg, Daily atorvastatin (LIPITOR) 40 mg, Oral, Daily furosemide (LASIX) 40 mg, Daily in the morning latanoprost (Xalatan) 0.005 % ophthalmic solution Magnesium 500 MG capsule Every 24 hours mometasone-formoterol (Dulera 100) 100-5 MCG/ACT inhaler 1 puff, Daily omeprazole (PRILOSEC) 20 mg, Oral, Daily before breakfast timolol (Timoptic) 0.5 % ophthalmic solution ALLERGIES: Allergies[5] PHYSICAL EXAM: Visit Vitals BP 130/62 (BP Location: Left arm, Patient Position: Sitting) Pulse 67 Ht 5' 10.5 Wt 207 lb SpO2 99% BMI 29.28 kg/m?? Smoking Status Some Days BSA 2.16 m?? BP Readings from Last 3 Encounters: 03/28/25 130/62 09/02/24 110/70 07/15/24 140/80 Wt Readings from Last 3 Encounters: 03/28/25 207 lb 09/02/24 202 lb 9.6 oz 03/22/24 211 lb Physical Exam Physical Exam General: The patient appears well. Neurological: Mood and affect are upbeat. Cognition is normal. Mouth/Throat: Oropharynx appears normal. Neck: Carotid arteries in the neck are normal. Trachea is midline and freely movable. No lymphadenopathy in the cervical, supraclavicular, or axillary areas. Respiratory: Lungs are clear to auscultation and percussion bilaterally, both anteriorly and posteriorly. Chest does not increase as expected upon deep inspiration. Cardiovascular: Apical impulse in the heart is nondiffuse. First heart sound is normal. Second heart sound is physiologically split with an increased component of P2. There is no murmur, gallop, or rub. No Kussmauls sign No abnormalities are noted in the suprasternal notch. Gastrointestinal: Abdomen is soft and nontender with no hepatomegaly or splenomegaly. There is no ascites. Extremities: Extremities show no edema. Skin: There are no skin abnormalities and no clubbing of the nail beds. Other: Midline sternotomy scar is well healed and nontender. Speech is normal. Gait/gait speed and resp status (gross observation with walking) was normal Results Imaging - Echocardiogram: Presurgical ejection fraction of 45 to 50% and postsurgical ejection fraction of 50% Diagnostic Testing - Pulmonary function studies: Mild restrictive lung disease with increased diffusion capacity ASSESSMENT AND PLAN: Assessment & Plan Diagnosis Plan 1. Mixed hyperlipidemia atorvastatin (Lipitor) 40 MG tablet 2. S/P CABG x 3 3. S/P Maze operation for atrial fibrillation 4. Status post ligation of left atrial appendage 5. Gastroesophageal reflux disease without esophagitis 6. Hx of atrial fibrillation without current medication 7. Medicare annual wellness visit, subsequent 8. ACP (advance care planning) 9. Generalized osteoarthritis of multiple sites evaluated and followed with [facility] rheum [id number] Cardiac Ddx: ischemic CM/arrhythmia/ - He reports no improvement in symptoms post-bypass surgery and experiences dyspnea on exertion. - He has not had any signs or symptoms of arrhythmias although states that he is not able to get his heart rate up above 120, whereas before he was able to get it up into the 140 range with exercise. - He is not having any chest discomfort, neck discomfort, arm discomfort with activity of walking. He has had no syncope or near syncope, no history of DVTs or pulmonary embolisms. -I would recommend a GXT w/ echo Pulm Ddx: ILD/asthma/PHTN/chronic tPE - He has had exposure to corn mold remotely but the symptoms of dyspnea with activity were rather sudden in onset. - Pulmonary function studies apparently show restrictive disease with a decreased DLCO. He has not had any autoimmune disorders, no Raynaud's, no cough. He does have a history of allergies. He has had no eosinophilia. - He was given a dual medication LABA/ICS and he has not noticed any difference whatsoever. Immunization recs: Influenza COVID RSV Medication management: - He has not been taking Lipitor (atorvastatin) as prescribed. - A prescription for atorvastatin 40 mg will be provided to help manage his cholesterol levels and prevent further arterial blockages. Follow-up: 05/08/2025 [1] History reviewed. No pertinent past medical history. [2] Past Surgical History: Procedure Laterality Date APPENDECTOMY CORONARY ARTERY BYPASS GRAFT 07/2024 HERNIA REPAIR KNEE ARTHROSCOPY W/ LATERAL RETINACULAR REPAIR OTHER SURGICAL HISTORY Bilateral knees RHINOPLASTY ROTATOR CUFF REPAIR VASECTOMY 1977 [3] Social History Tobacco Use Smoking status: Some Days Types: Cigars Smokeless tobacco: Never Substance Use Topics Alcohol use: Yes Alcohol/week: 3.0 standard drinks of alcohol Types: 3 Cans of beer per week Comment: Occasional Drug use: Never [4] Family History Problem Relation Name Age of Onset Heart failure Mother Ada Hypertension Mother Ada Diabetes Sister Nadia Paul Diabetes Brother Casey Heart disease Maternal Grandmother [place] Cancer Paternal Grandmother Elizabeth Diabetes Paternal Grandmother Elizabeth Heart disease Paternal Grandfather WG [5] No Known Allergies documented in this encounter Plan of Treatment DateTypeDepartmentCare Team (Latest Contact Info)Umoqcilihww02/13/2026 9:00 AM ESTOffice Visit [facility] [place] [facility] [address] [place] [phone] Sacha Irizarry DO [address] [place] [address] documented as of this encounter Visit Diagnoses Diagnosis Mixed hyperlipidemia- Primary S/P CABG x 3 Postsurgical aortocoronary bypass status S/P Maze operation for atrial fibrillation Other postprocedural status Status post ligation of left atrial appendage Gastroesophageal reflux disease without esophagitis Esophageal reflux Hx of atrial fibrillation without current medication Medicare annual wellness visit, subsequent ACP (advance care planning) Other specified counseling Generalized osteoarthritis of multiple sites Generalized osteoarthrosis, involving multiple sites documented in this encounter Care Teams Team MemberRelationshipSpecialtyStart DateEnd Date Sacha Irizarry DO [address] [place] [address] PCP - GeneralInternal Medicine09/27/22 Sacha Irizarry DO [address] [facility] [address] [place] [address] PCP - ACO Reach10/13/22 Giuliano Finn MD [address] [facility] [place] [phone] Referring PhysicianPulmonary Yyylnzz37/22/25 Laina Mcqueen MD [address] [facility] [phone] Referring AsnmnhsohHnzqnuwiuh47/22/25 [facility] Kvguvadfgfwoy14/7/25documented as of this encounter
--- OUTSIDE RECORDS SUMMARY | 2025-04-09 09:15 | XMS_ITS | Encounter Summary ---
Author Organization [facility] Address [address] [place] [address] Care Team Providers Care Library Services Coordinator Name Role Phone Sacah Irizarry MD Primary Care Provider + [phone] Encounter Details DateTypeDepartmentCare Team (Latest Contact Info)Bkuoodubeam17/19/2025 9:15 AM ESTOffice Visit [facility] [place] [address] [place] [address] Laina Mcqueen MD [address] [facility] [address] [facility] [place] [address] Dyspnea, unspecified type (Primary Dx); S/P CABG (coronary artery bypass graft); Multi-vessel coronary artery stenosis; BARRIENTOS (dyspnea on exertion); Chronic heart failure with preserved ejection fraction (HFpEF) (CMS/HCC) Social History Tobacco UseTypesPacks/DayYears UsedDateSmoking Tobacco: FormerCigarsPassive Smoke Exposure: YesSmokeless Tobacco: Never Comments:An occasional cigar Alcohol UseStandard Drinks/WeekCommentsYes3 (1 standard drink = 0.6 oz pure alcohol)SocialAH UtilitiesAnswerDate RecordedIn the past 12 months has the electric, gas, oil, or water [employer] threatened to shut off services in your home?08/14/2024Humiliation, Afraid, Rape, and Kick questionnaireAnswerDate RecordedWithin the last year, have you been afraid of your partner or ex-partner?08/14/2024Emotionally AbusedNot on file08/14/2024Physically Abused Not on file08/14/2024Sexually AbusedNot on file08/14/2024Overall Financial Resource Strain (CARDIA)AnswerDate RecordedHow hard is it for you to pay for the very basics like food, housing, medical care, and heating?Not hard at all 08/14/2024PHQ-2AnswerDate RecordedPatient Health Questionnaire-2 Score0 08/29/2024TransportationAnswerDate RecordedIn the past 12 months, has lack of transportation kept you from medical appointments or from getting medications?No 08/14/2024Lack of Transportation (Non-Medical)Not on file08/14/2024Housing Stability Vital SignAnswerDate RecordedIn the last 12 months, was there a time when you were not able to pay the mortgage or rent on time?Yes08/14/2024Number of Times Moved in the Last YearNot on file08/14/2024t any time in the past 12 months, were you homeless or living in a fci (including now)?No08/14/2024 Hunger Vital SignAnswerDate RecordedWithin the past 12 months, you worried that your food would run out before you got the money to buymore.Never true08/14/2024 Ran Out of Food in the Last YearNot on file08/14/2024Sex and Gender Information ValueDate RecordedSex Assigned at XwcnwEdto28/19/2025 4:12 PM EDTLegal SexMale 07/22/2024 10:26 AM ESTGender BxpwvuetCamx89/19/2025 4:12 PM EDTSexual OrientationHeterosexual or Pvgikzno72/19/2025 4:12 PM EDTdocumented as of this encounter Last Filed Vital Signs Vital SignReadingTime TakenCommentsBlood Swprgehf000/6904/09/2025 9:19 AM EST Ztvyl241204/09/2025 9:19 AM ESTTemperature--Respiratory Rate--Oxygen Tjdfkcjubg94% 04/09/2025 9:19 AM ESTInhaled Oxygen Concentration--Xbouan37.6 kg (213 lb) 04/09/2025 9:19 AM JGVLqexgi308.3 cm (5' 11 )04/09/2025 9:19 AM ESTBody Mass Index29.7104/09/2025 9:19 AM ESTdocumented in this encounter Functional Status * BPAnswerDate of PrwkjfsulfDvhuhp826/6904/09/2025 9:19 AM Helga Crisostomo MA * PulseAnswerDate of UlbrpennnpGbabae0658 9:19 AM Helga Crisostomo MA * Audit Alcohol ScreeningQuestionAnswerDate of AssessmentAuthorHow often do you have a drink containing alcohol? 9:29 AM Helga Crisostomo MA * Patient PositionAnswerDate of HbqnlsxctyMeyxsfLndgwsq10/19/2025 9:19 AM Helga Cantrell MA * BPAnswerDate of CzafqbtwvhUozhpn122/6904/09/2025 9:19 AM Helga Crisostomo MA * PulseAnswerDate of IjhbkdiunkUgivcv5775/19/2025 9:19 AM Helga Crisostomo MA * TwS6AjwatoVyva of SbkrqrdramUjkdgy7339/19/2025 9:19 AM Helga Crisostomo MA * BP LocationAnswerDate of AssessmentAuthorRight arm04/09/2025 9:19 AM Helga Cantrell MA * Audit Alcohol ScreeningQuestionAnswerDate of AssessmentAuthorHow often do you have a drink containing alcohol? 9:29 AM Helga Crisostomo MA * Patient PositionAnswerDate of WehphebkbfOrgcutIafbzct61/19/2025 9:19 AM Helga Cantrell MA documented as of this encounter Progress Notes * Laina Mcqueen MD - 04/09/2025 9:15 AM EST Images from the original note were not included. [place] [facility] Chief Complaint: patient here today for a 3 month follow up appointment. Patient seen pulmonary in December per patient pulmonary tried to convince him that he had asthma and was given an inhaler whichdoesn't help at all. Patient states he seen his PCP and was told that he doesn't have Asthma. Patient states he is hoping to have some answers today from cardiology. Patient complains of SOB/BARRIENTOS since before and after his CABG. Patient complains of weight gain, leg swelling. Patient states he has been doubling his lasix. every 3 to 4 days due to the leg swelling and weight gain HPI Lang James is a 73 y.o. [...] concerned because his mother of heart failure. Update 04/09/2025: The patient is about the same; he states that whenever he does anything he has shortness of breath.Pertinently, he says this is how he felt both before and after the bypass. He has been putting on several pounds of weight recently. This initially responded to Lasix and nowhe has not. Interestingly, he denies orthopnea, paroxysmal external dyspnea, or significant lower extremity edema. He has no chest pain. He denies palpitations. He has mild lightheadedness and dizziness. Review of Systems Constitutional: Positive for malaise/fatigue [...] stress test Dyspnea Coronary artery disease involving [place] coronary artery of [place]ai heart Paroxysmal atrial fibrillation (CMS/HCC) Multi-vessel coronary artery stenosis Postoperative anemia due to acute blood loss Atelectasis Abnormal ECG S/P CABG x 3 Abrasion of left cornea Foreign body of left eye Generalized osteoarthritis of multiple sites Hx of atrial fibrillation without current medication Family History Problem Relation Name Age of Onset Heart failure Mother Ada Coronary artery disease Father Merril Heart failure Father Merril Diabetes Sister Diabetes Brother Social History Tobacco Use Smoking status: Former Types: Cigars Passive exposure: Yes Smokeless tobacco: Never Tobacco comments: An occasional cigar Substance Use Topics Alcohol use: Yes Alcohol/week: 3.0 standard drinks of alcohol Types: 1 Glasses of wine, 2 Cans of beer per week Comment: Social Drug use: Never Objective Visit Vitals Smoking Status Former There were no vitals taken for this visit. Physical Exam Constitutional: Appearance: He is well-developed. [...] Behavior is cooperative. Judgment: Judgment normal. Allergies Allergies Allergen Reactions Other Other and GI intolerance Processed Poultry Medications Current Outpatient Medications: acetaminophen (Tylenol) 500 mg tablet, Take 1 tablet (500 mg) by mouth every 6 (six) hours if needed for mild pain (1-3 pain score) for up to 295 doses., Disp: 30 tablet, Rfl: 0 albuterol (Ventolin HFA) 90 mcg/actuation inhaler, Inhale 2 puffs every 4 (four) hours if needed for wheezing or shortness of breath., Disp: 18 g, Rfl: 5 amiodarone (Pacerone) 200 mg tablet, Take 2 tablets (400 mg) by mouth with breakfast and with evening meal for 7 days, THEN 1 tablet (200 mg) with breakfast. (Patient not taking: No sig reported), Disp: 127 tablet, Rfl: 0 aspirin 81 mg chewable tablet, Chew 1 tablet (81 mg) once daily as directed., Disp: 90 tablet, Rfl:3 atorvastatin (Lipitor) 20 mg tablet, Take 1 tablet (20 mg) by mouth at bedtime. (Patient not taking: Reported on 03/20/2025), Disp: 90 tablet, Rfl: 3 clopidogrel (Plavix) 75 mg tablet, Take 1 tablet (75 mg) by mouth once daily as directed. (Patient not taking: Reported on 03/20/2025), Disp: 90 tablet, Rfl: 3 furosemide (Lasix) 40 mg tablet, [...] 10 days. (Patient not taking: Reported on 03/20/2025), Disp: 40 tablet, Rfl: 0 mometasone-formoterol (Dulera) 100-5 mcg/actuation inhaler, Inhale 2 puffs in the morning and at bedtime. Rinse mouth with water after use to reduce aftertaste and incidence of candidiasis. Do not swallow., Disp: 13 g, Rfl: 11 omeprazole (PriLOSEC) [address] capsule, Take 1 capsule (20 mg) by mouth before breakfast. (Patient not taking: Reported on 03/20/2025), Disp: 30 capsule, Rfl: 0 umeclidinium (Incruse Ellipta) 62.5 mcg/actuation inhalation, Inhale 1 puff (62.5 mcg) in the morning., Disp: 30 each, Rfl: 3 Recent Labs No visits with results within 6 Month(s) from this visit. Latest known visit with results is: Orders Only on 08/29/2024 Component Date Value Ventricular Rate 08/29/2024 70 Atrial Rate 08/29/2024 70 DC Interval 08/29/2024 162 QRS DURATION 08/29/2024 144 QT Interval 08/29/2024 516 QTC CALCULATION(BAZETT) 08/29/2024 557 P Her[place] 08/29/2024 38 R-Herculaneum 08/29/2024 -62 T Wave Herculaneum 08/29/2024 53 BMP 09/02/2024: BUN 19, creatinine 1.01, EGFR [...] appendage ligation surgically Exertional shortness of breath - ?HFpEF History of pulmonary disease PLAN: Continue optimal medical therapy for coronary artery disease including DAPT for at least 2 years after bypass, moderate intensity statin therapy, a beta-[place] plus or minus a RAAS inhibitor Continue diuretic; he is to weigh himself daily and if he notices an increase in weight by 3 poundsor more he is to take an extra dose Given persistent exertional shortness of breath, and the patient's concerns, we discussed noninvasive versus invasive options; I recommended proceeding with a treadmill Cardiolite stress test to ruleout ischemia as a cause of his symptoms I do not believe a right heart catheterization is necessary at this juncture given normal right-sided pressures on echocardiography. If the stress test shows evidence of ischemia, we will schedule him for invasive coronary and graftangiography and add a right heart catheterization at that time If the stress test is normal, I would likely treat the patient as heart failure with preserved ejection fraction, and we will add an SGLT2 inhibitor and spironolactone at his next visit I would like to see him in the next 1 to 2 months or sooner should problems arise Laina Mcqueen MD, MPH, [facility], [facility], [facility] Interventional Cardiology Pager Email: [email or web address] documented in this encounter Plan of Treatment DateTypeDepartmentCare Team (Latest Contact Info)Owzipvqgxzh25/11/2025 2:00 PM ESTOffice Visit [facility] [address] [address] Laina Mcqueen MD [address] [facility] [address] [place] [phone] 05/08/2025 1:00 [address]Office [address] [facility] [address] [place] [phone] Giuliano Finn MD [address] [facility] [place] [address] documented as of this encounter Visit Diagnoses Diagnosis Dyspnea, unspecified type- Primary S/P CABG (coronary artery bypass graft) Postsurgical aortocoronary bypass status Multi-vessel coronary artery stenosis BARRIENTOS (dyspnea on exertion) Other dyspnea and respiratory abnormality Chronic heart failure with preserved ejection fraction (HFpEF) (CMS/[facility]) documented in this encounter Care Teams Team MemberRelationshipSpecialtyStart DateEnd Date Sacha Irizarry MD [address] [place] [address] PCP - GeneralInternal Medicine07/29/24documented as of this encounter
--- OUTSIDE RECORDS SUMMARY | 2025-04-10 06:49 | XMS_ITS | CCD ---
Author Organization [facility] Care Team Providers Care Financial Service Rep Name Role Phone JUAN C DENNIS Unavailable Unavailable VASCHAK, DENNIS Unavailable Unavailable VASCHAK, DENNIS Unavailable Unavailable DONTAE RUSSELL (FEL) Unavailable Unavailabl e PIORO, JM CLEMENT Unavailable Unavailab le PIORO, JM CLEMENT Unavailable Unavailab le GABINO, SONY Unavailable Unavailable GABINO, SONY Unavailable Unavailable GABINO, SONY Unavailable Unavailable VASCHAK, DENNIS Unavailable Unavailable GABINO, SONY Unavailable Unavailable GABINO, SONY Unavailable Unavailable GABINO, SONY Unavailable Unavailable AGUBOSIM, COLTON Unavailable Unavailable ALFIECHAK, DENNIS Unavailable Unavailable Dennis Irizarry DO Primary Care Provider Dennis Irizarry DO Unavailable [phone] REAL HOWARD Referring Unavailabl e REAL HOWARD Attending Unavailabl e DERISO, KEITH Referring Unavailable DERISO, KEITH Referring Unavailable SCOTT, Referring Unavailable WILLIE BARRETT Attending Unavailable DERKEITH ALFARO Admitting Unavailable DERKEITH ALFARO Attending Unavailable REAL HOWARD Referring Unavailabl e SCOTT, Referring Unavailable SCOTT, Referring Unavailable DERISO, KEITH Referring Unavailable ELJEFERSONHAWY, EHAB Referring Unavailable REAL HOWARD Referring Unavailabl e SCOTT, Referring Unavailable SCOTT, Referring Unavailable ARMIDA GUTIERREZ Attending Unavailable SCOTT, Referring Unavailable REAL HOWARD Referring Unavailabl e DERISO, KEITH Referring Unavailable DERISO, KEITH Referring Unavailable DERISO, KEITH Referring Unavailable DERISO, KEITH Referring Unavailable SAFI, LEANNE Attending Unavailable ELTAHAWY, EHAB Referring Unavailable YAMILA LLUVIA Referring Unavailable ELTAYLOR, LAINA Attending Unavailable RICHAR, EHAB Referring Unavailable REAL HOWARD Attending UnavailKEITH Peña Referring Unavailable WILLIE BARRETT Attending Unavailable RICHAR, EHAB Attending Unavailable REAL HOWARD Referring Unavailstefany pascal SCOTT, KATIA Referring Unavailable DERKEITH ALFARO Referring Unavailable DIDIONBROOKE Attending Unavailable DIDBROOKE HAYNES Referring Unavailable VASDENNIS CORNELIUS Attending Unavailable DENNIS IRIZARRY Referring Unavailable DENNIS IRIZARRY Attending Unavailable CELSO MONTANO Attending Unavailable CELSO MONTANO Referring Unavailable PAM JACKSON Attending Unavailable PAM JACKSON Referring Unavailable JR. RAMIREZ GEORGE C Attending Unavailkristie Finn MD, Leanne Unavailable Richar LYNNE, Laina Unavailable Allergies Allergy ClassificationReported Allergen(s)Allergy TypeDate of OnsetReaction(s) Facility (2 sources)OTHER; Translations: [OTHER]Propensity to adverse reactions (disorder)92-78-7483IDHQfeoyoymcSelect [facility] (1 source)No Known Drug AllergiesDrug allergy (disorder)[facility] Repository (1 source)Mis-Food; Translations: [Mis-Food]Food allergy (disorder)[facility] Medications Current Medications MedicationDrug Class(es)DatesSig (Normalized)Sig (Original)acetaminophen 500 mg oral tablet (14 sources)Start: 52-79-8851rrzk 1 tablet by mouth every six hours as needed acetaminophen (Tylenol) 500 MG tablet Take 500 mg by mouth every 6 (six) hours if needed [id number] 200 actuat albuterol 0.09 mg/actuat metered dose inhaler (2 sources)beta2-Adrenergic Agonisttake 2 puff(s) by inhalation every four hours for wheezingalbuterol HFA 90 mcg/act inhaler Inhale 2 puffs every 4 (four) hours if needed for wheezing Activeamiodarone hydrochloride 200 mg oral tablet (6 sources)AntiarrhythmicStart: 07-30-2024 End: 99-19-4435oxwm 1 tablet by mouth once dailyamiodarone (Pacerone) 200 MG tablet Take 200 mg by mouth Daily 07/30/2024 11/11/2024 Activeaspirin 81 mg chewable tablet (9 sources)Platelet Aggregation Inhibitor, Nonsteroidal Anti-inflammatory Drug Start: 08-21-2024 End: 65-34-2460sseqtfg 81 MG chewable tablet Chew 81 mg in the morning. 08/21/2024 11/24/2024 Activetake 81 mg by mouth once dailyASPIRIN 81 PO Take 81 mg by mouth 1 (one) time each day Activeatorvastatin 40 mg oral tablet (20 sources)HMG-CoA Reductase InhibitorStart: 03-28-2025 End: 68-16-4730txuw 1 tablet by mouth once dailyatorvastatin (Lipitor) 40 MG tablet Indications: Mixed hyperlipidemia Take 1 tablet (40 mg) by mouth Daily 30 tablet 5 03/28/2025 09/24/2025 ActiveStart: 04-17-2024 End: 44-25-8268xamt 1 tablet by mouth once dailyatorvastatin (Lipitor) 10 MG tablet Indications: Hypercholesteremia Take 1 tablet (10 mg) by mouth Daily 30 tablet 3 04/17/2024 03/28/2025 Discontinued (Med list cleanup)clopidogrel 75 mg oral tablet (8 sources)P2Y12 Platelet InhibitorStart: 08-21-2024 End: 25-73-5225pgvs 1 tablet by mouth in the morningclopidogrel (Plavix) 75 MG tablet Take 75 mg by mouth in the morning. 08/21/2024 11/27/2024 Qweyow98 actuat formoterol fumarate 0.005 mg/actuat / mometasone furoate 0.1 mg/actuat metered dose inhaler (2 sources)Corticosteroid, beta2-Adrenergic Agonisttake 1 puff(s) by mouth once dailymometasone-formoterol (Dulera 100) 100-5 MCG/ACT inhaler Inhale 1 puff Daily Rinse mouth with waterafter use to reduce aftertaste and incidence of candidiasis. Do not swallow. Activelatanoprost 0.05 mg/ml ophthalmic solution (20 sources)Prostaglandin AnalogStart: 26-22-0288aphjibfoquv (Xalatan) 0.005 % ophthalmic solution 08/01/2023 ActiveStart: 70-13-8836isgs 1 drop(s) into the eye(s) at bedtimelatanoprost (Xalatan) 0.005 % ophthalmic solution PLACE 1 DROP IN BOTH EYES AT BEDTIME 08/01/2023 Activemagnesium oxide 500 mg oral capsule (20 sources)Magnesium 500 MG capsule 1 (one) time each day at the same time Activeomeprazole 20 mg delayed release oral capsule (20 sources)Proton Pump InhibitorStart: 87-14-9826xnxd 1 capsule by mouth before mealtimeomeprazole (PriLOSEC) [address] capsule Indications: Gastroesophageal reflux disease without esophagitis TAKE 1 CAPSULE (20 MG) BY MOUTH IN THE MORNING. TAKE BEFORE MEALS. 90 capsule 3 12/17/2024 ActiveStart: 07-30-1576ovxs 1 capsule by mouth before mealtimeomeprazole (PriLOSEC) [address] capsule Indications: Gastroesophageal reflux disease without esophagitis TAKE 1 CAPSULE (20 MG) BY MOUTH IN THE MORNING. TAKE BEFORE MEALS. 90 capsule 3 10/26/2023 Dqngwx82 hr timolol 5 mg/ml ophthalmic solution (20 sources)beta-Adrenergic BlockerStart: 96-37-5279dbxfgsz (Timoptic) 0.5 % ophthalmic solution 07/05/2023 ActiveStart: 20-96-2546snhhdmu (Timoptic) 0.5 % ophthalmic solution INSTILL 1 DROP TO BOTH EYES EACH MORNING. 07/05/2023 Active Completed/Discontinued Medications MedicationDrug Class(es)DatesSig (Normalized)Sig (Original)docusate sodium 100 mg oral capsule (3 sources)Start: 08-21-2024 End: 53-20-8206Doutjjfq Sodium (DSS) 100 MG capsule Take 200 mg by mouth 2 (two) times a day as needed 08/21/2024 09/20/2024 Expiredferrous sulfate 325 mg oral tablet (2 sources)Start: 08-21-2024 End: 49-71-6768igtn 1 tablet by mouth at mealtimeferrous sulfate 325 (65 Fe) MG tablet Take 325 mg by mouth in the morning. Take with meals. 08/21/2024 09/02/2024 Discontinued (Therapy completed)furosemide 40 mg oral tablet (5 sources)Loop DiureticStart: 08-21-2024 End: 98-26-0106etxq 1 tablet by mouth in the morning as neededfurosemide (Lasix) 40 MG tablet Take 40 mg by mouth in the morning. PRN. 08/21/2024 09/20/2024 Wkmwjqi34 hr guaiFENesin 600 mg extended release oral tablet (2 sources)Start: 08-21-2024 End: 51-13-0140qiax 1 tablet by mouth in the morning as needed, then take 1 tablet by mouth every twelve hours in the evening as neededguaiFENesin (Mucinex) 600 MG 12 hr tablet Take 600 mg by mouth in the morning and 600 mg in the even ing. PRN. 08/21/2024 09/02/2024 ExpiredIbuprofen (17 sources)Nonsteroidal Anti-inflammatory Drug End: 31-74-9334Yltoyenfu (ADVIL PO) Take by mouth PRN 09/02/2024 Discontinued (Therapy completed)Ibuprofen (ADVIL PO) Take by mouth PRN Activemethocarbamol 500 mg oral tablet (2 sources)Muscle RelaxantStart: 08-29-2024 End: 37-85-9218jexa 1 tablet by mouth three times daily as neededmethocarbamol (Robaxin) 500 MG tablet Take 500 mg by mouth 3 (three) times a day as needed 08/29/2024 09/02/2024 Discontinued (Therapy completed)1 ml methylPREDNISolone acetate 40 mg/ml injection (4 sources)CorticosteroidStart: 04-09-2024 End: 11-65-0230ndvvjiBOYMUOBmzbhs acetate (DEPO-Medrol) injection 40 mgStart: 04-09-2024 End: 94-98-914564 mg, Intra-articular, Once PRN Procedure, Starting on Mon04/09/24 at 1239, For 1 doseoxyCODONE hydrochloride 5 mg oral tablet (2 sources)Opioid AgonistStart: 08-21-2024 End: 41-04-3176akmq 1 tablet by mouth every six hours as neededoxyCODONE (Roxicodone) 5 MG immediate release tablet Take 5 mg by mouth every 6 (six) hours if needed 08/21/2024 09/02/2024 Discontinued (Therapy completed) Problems Active Problems Problem ClassificationProblemDateDocumented DateEpisodic/ChronicAbdominal hernia (5 sources)Bilateral inguinal hernia, without obstruction or gangrene, not specified as recurrent; Translations: [BRITNI ING CAROLYN NO OBST/GANG NOT RECUR] Onset: 04-60-6718YyxyklruYevqpfidijkzem/social admission (2 sources)Patient encounter status; Translations: [Other specified counseling] 43-95-9439HkjpvpjfDjrjvz (2 sources)Unspecified asthma, uncomplicated; Translations: [Unspecified asthma, uncomplicated]Onset: 38-76-4127WqqnzgiYdkfngt dysrhythmias (16 sources)Atrial fibrillation; Translations: [Unspecified atrial fibrillation] Onset: 309431-39-2777TiaqwvqBruwoazhid heart failure; nonhypertensive (6 sources)Acute diastolic heart failure; Translations: [Acute diastolic (congestive) heart failure]Onset: 752301-69-0544TsgragaQtuvahar atherosclerosis and other heart disease (4 sources)Atherosclerotic heart disease of [place] coronary artery with other forms of angina pectoris; Translations: [Atherosclerotic heart disease of [place] coronary artery without angina pectoris]Onset: 85-88-1535EnaxrpgIwylboabpz and other anemia (2 sources)Anemia due to blood loss; Translations: [Iron deficiency anemia secondary to blood loss (chronic)]59-92-7817BxbxbvbCjpjucvhj of lipid metabolism (20 sources)Hyperlipidemia, unspecified; Translations: [Hypercholesterolemia] Onset: 01-18-2018 Resolved: 426681-91-7882OwetpoqNpulmwijer disorders (20 sources)Gastroesophageal reflux disease without esophagitis; Translations: [Gastro-esophageal reflux disease without esophagitis]Onset: 03-19-2017 30-38-0656BqcoiahGpypt disorders and dislocations; trauma-related (4 sources)Derangement of right knee; Translations: [Unspecified internal derangement of right knee]49-31-9953ObgvcysHjhhmxeejmlpfr (20 sources)Unspecified osteoarthritis, unspecified site; Translations: [Primary osteoarthritis, unspecified site]Onset: 03-13-2017 Resolved: 252094-85-9662MbqmrqxGoqbt and unspecified benign neoplasm (1 source)Benign lipomatous neoplasm of spermatic cord; Translations: [SHARYN LIPOMATOUS NEOP SPERMATIC CORD]Onset: 94-60-0883FpxunrmsCzhes circulatory disease (4 sources)H/O: atrial fibrillation; Translations: [Personal history of other diseases of the circulatory system]Onset: 116481-76-4999SnzeluqyFnajz liver diseases (2 sources)Elevated liver enzymes level; Translations: [Abnormal levels of other serum enzymes]49-70-5226ApyhkvpiAkjsl lower respiratory disease (3 sources)Dyspnea; Translations: [Shortness of breath]Onset: 03-20-2025 80-38-0798WkndjigpDwtge nervous system disorders (20 sources)Chronic pain syndrome; Translations: [Chronic pain syndrome]Onset: 09-14-2023 Resolved: 964610-51-1695AdivnojWxdju nervous system disorders (2 sources)Benign fasciculation-cramp syndrome; Translations: [Fasciculation] 25-92-1116JskgolmyQwqxp non-traumatic joint disorders (6 sources)Pain in right knee; Translations: [Pain in joint, lower leg] 26-08-3464BhpqxeshMffmjnog codes; unclassified (4 sources)Bilateral lower limb edema; Translations: [Localized edema]07-16-2024 EpisodicResidual codes; unclassified (14 sources)History of maze procedure for atrial fibrillation; Translations: [Other specified postprocedural states]Onset: 023433-34-8759Jvfvfjyw Residual codes; unclassified (14 sources)H/O cardiac surgery; Translations: [Other specified postprocedural states]Onset: 240165-84-8478MtaboldyGnlvbbzbp-sjgdklu disorders (1 source)Nicotine dependence, other tobacco product, uncomplicated; Translations: [NICOTINE DEPEND OTH TOB PROD UNCOMP]Onset: 66-06-7375Bddlhlf Unclassified (2 sources)Pure hypercholesterolemia, unspecified / E78.00(ICD-9)Onset: 41-06-2484Uwqixpmmvqxq (1 source)Encounter for screening for cardiovascular disorders / Z13.6(ICD-9) Onset: 07-17-2017 Past or Other Problems Problem ClassificationProblemDateDocumented DateEpisodic/ChronicCoronary atherosclerosis and other heart disease (2 sources)Presence of aortocoronary bypass graft; Translations: [Presence of aortocoronary bypass graft]Onset: 36-61-8456HcqhuojwTuqkkmjlnx and other anemia (2 sources)Anemia, unspecified; Translations: [Anemia, unspecified]Onset: 61-49-7751RdhgmspqBhjhw aftercare (2 sources)Encounter for follow-up examination after completed treatment for conditions other than malignant neoplasm; Translations: [Encounter for follow-up examination after completed treatment for conditionsother than malignant neoplasm]Onset: 09-10-5016XnwgsayoBldum circulatory disease (2 sources)Other hypotension; Translations: [Other hypotension]Onset: 09-11-2024 EpisodicOther connective tissue disease (2 sources)Other specified soft tissue disorders; Translations: [Other specified soft tissue disorders]Onset: 09-09-1979MalwrhqbYmlxk connective tissue disease (2 sources)Myalgia, unspecified site; Translations: [Myalgia, unspecified site] Onset: 31-63-2283GhbayotiDpdsl lower respiratory disease (1 source)Shortness of breath; Translations: [Shortness of breath]Onset: 89-37-8183PjmynhepXpsdb lower respiratory disease (2 sources)Other forms of dyspnea; Translations: [Other forms of dyspnea]Onset: 19-64-4994BteggvrxArski lower respiratory disease (2 sources)Dyspnea, unspecified; Translations: [Dyspnea, unspecified]Onset: 27-34-1439JeoqqzlbMtuum nutritional; endocrine; and metabolic disorders (20 sources)Obesity; Translations: [Obesity, unspecified]Onset: 09-14-2023 Resolved: 523392-80-3085UamrjisJsruw screening for suspected conditions (not mental disorders or infectious disease) (20 sources)Coronary artery finding; Translations: [Abnormal findings on diagnostic imaging of heart and coronary circulation]Onset: 07-20-2017 Resolved: 613357-66-5919GdwrewruWgsaqvlr codes; unclassified (2 sources)Other specified postprocedural states; Translations: [Other specified postprocedural states]Onset: 87-22-2317VfejilywFjhkfwcj codes; unclassified (2 sources)Pain, unspecified; Translations: [Pain, unspecified]Onset: 08-14-2024 EpisodicSpondylosis; intervertebral disc disorders; other back problems (20 sources)Cervical spondylosis without myelopathy; Translations: [Spondylosis without myelopathy or radiculopathy, cervical region]Onset: 09-14-2023 Resolved: 893576-96-8239RfjnorpZoilimukmpi; intervertebral disc disorders; other back problems (20 sources)Chronic neck pain; Translations: [Cervicalgia]Onset: 03-19-2017 Resolved: 327958-10-4684TodzuucoYnadxbusfiie (1 source)Pure hypercholesterolemia, unspecified; Translations: [Pure hypercholesterolemia, unspecified]Onset: 07-17-2017 Results Test NameValueInterpretationReference RangeFacilityConsulton 67-92-2653Curlhrv [facility]36on 10-47-505579Nmyitol called the office again. Left a message. I tried calling back. No answer, left a message. I tried alternate contact who was with the patient and put the patient on the phone. I scheduled him for a new patient consult with Dr. Finn.[facility]36Patient called the office and left a message. States he's going to keep calling until someone answers the phone. I returned his call. Call went to voicemail and I left a message.[facility]36on [facility] CHEST 2Von 74-39-[place]27[place] [address] XRay Report Signed Patient: EMMA JAMES MR#: [id number] : 1950 Acct:[id number] Age/Sex: 74 / M ADM Date: 01/15/25 Loc: RAD Attending Dr: Laina Mcqueen M.D. Ordering Physician: Laina Mcqueen M.D. Date of Service: 01/15/25 Procedure(s): XR chest 2V Accession Number(s): [id number] cc: Laina Mcqueen M.D.; DENNIS IRIZARRY [place] [id number] Patient Name: EMMA JAMES MRN: [facility]:[id number] date: 1950 Sex: M Assigned Patient Location: [facility] Current Patient Location: [facility] Accession/Order Number: [id number] Exam Date: 01/15/2025 11:25 Report Date: 01/15/2025 12:11 At the request of: LAINA MCQUEEN MD Procedure: XR chest 2V PA AND LATERAL CHEST: CLINICAL HISTORY: Dyspnea On Exertion COMPARISON: None Median sternotomy wires are present. There is no focal parenchymal consolidation, effusion or pneumothorax. The cardiac, hilar and mediastinal silhouettes are within normal limits. There is no vascular congestion. The visualized bony thorax is intact. There is subtle dextroscoliotic curvature as well as endplate spurring. XR/XR chest 2V IMPRESSION: NO ACUTE CARDIOPULMONARY ABNORMALITY. Impression dictated by: Beti Khoury M.D. 01/15/2025 12:11 PM Dictation Location: [place] [address] Electronically authenticated by: [id number] Y Date: 01/15/2025 12:11 Dictated By: Beti Khoury M.D. Signed By: 01/15/25 1214 DD/ 1211 TD/TT: Cocoa Powder Mixer Operator:ELIUadiology, Radiologist, - 01/15/2025 [place] [address] XRay Report Signed Patient: EMMA JAMES MR#: [id number] : 1950 Acct:[id number] Age/Sex: 74 / M ADM Date: 01/15/25 Loc: RAD Attending Dr: Laina Mcqueen M.D. Ordering Physician: Laina Mcqueen M.D. Date of Service: 01/15/25 Procedure(s): XR chest 2V Accession Number(s): [id number] cc: Laina Mcqueen M.D.; DENNIS RIIZARRY [place] [address] Patient Name: EMMA JAMES MRN: [facility]:[id number] date: 1950 Sex: M Assigned Patient Location: RAD Current Patient Location: RAD Accession/Order Number: [id number] Exam Date: 01/15/2025 11:25 Report Date: 01/15/2025 12:11 At the request of: LAINA MCQUEEN MD Procedure: XR chest 2V PA AND LATERAL CHEST: CLINICAL HISTORY: Dyspnea On Exertion COMPARISON: None Median sternotomy wires are present. There is no focal parenchymal consolidation, effusion or pneumothorax. The cardiac, hilar and mediastinal silhouettes are within normal limits. There is no vascular congestion. The visualized bony thorax is intact. There is subtle dextroscoliotic curvature as well as endplate spurring. XR/XR chest 2V IMPRESSION: NO ACUTE CARDIOPULMONARY ABNORMALITY. Impression dictated by: Beti Khoury M.D. 01/15/2025 12:11 PM Dictation Location: [place] [address] Electronically authenticated by: [id number] Y Date: 01/15/2025 12:11 Dictated By: Beti Khoury M.D. Signed By: 01/15/25 1214 DD/ 1211 TD/TT: Cocoa Powder Mixer Operator: AB HealthcareRadiology Study observation (narrative)[facility] HealthcareXR CHEST 2V Ordered By: Radiologist Radiology on 54-01-6718[facility] Work Phone: Orders Onlyon 46-92-9212Njjvoz OnlyNormalUniversity Elyria Memorial HospitalITPon 91-44-2201Yup[place] [address] Cardiac Rehab Report Signed Patient: EMMA JAMES MR#: [id number] : 1950 Acct:[id number] Age/Sex: 74 / M ADM Date: 12/13/24 Loc: CR Attending Dr: ARMIDA GUTIERREZ Ordering Physician: Laina Mcqueen M.D. Date of Service: 12/25/24 Procedure(s): ITP Accession Number(s): [id number] cc: [facility] Test Date: 2024-12-25 Pat Name: EMMA JAMES Department: Room: - Gender: Male Manager Mission: : 1950 Requested By: LAINA MCQUEEN Order Number: [id number] Rob MD: ARMIDA GUTIERREZ M.D. Interpretive Statements Patient may continue cardiac rehab as outlined in the treatment plan. Electronically Signed On 12-27-2024 10:27:23 EDT by ARMIDA GUTIERREZ M.D. Dictated By: ARMIDA GUTIERREZ Signed By: 12/27/24102612/27/247 DD/ 0709 TD/TT: Cocoa Powder Mixer Operator:ELIUadiologmaty, Radiologist, - 12/27/2024 [place] [address] Cardiac Rehab Report Signed Patient: EMMA JAMES MR#: [id number] : 1950 Acct:[id number] Age/Sex: 74 / M ADM Date: 12/13/24 Loc: CR Attending Dr: ARMIDA GUTIERREZ Ordering Physician: Laina Mcqueen M.D. Date of Service: 12/25/24 Procedure(s): ITP Accession Number(s): [id number] cc: [facility] Test Date: 2024-12-25 Pat Name: EMMA JAMES Department: Room: - Gender: Male Manager Mission: : 1950 Requested By: LAINA MCQUEEN Order Number: [id number] Rob MD: ARMIDA GUTIERREZ M.D. Interpretive Statements Patient may continue cardiac rehab as outlined in the treatment plan. Electronically Signed On 12-27-2024 10:27:23 EDT by ARMIDA GUTIERREZ M.D. Dictated By: ARMIDA GUTIERREZ Signed By: 12/27/247 12/27/24 1027 DD/ 0709 TD/TT: Cocoa Powder Mixer Operator: [place] [address] Cardiac Rehab Report Signed Patient: EMMA JAMES MR#: [id number] : 1950 Acct:[id number] Age/Sex: 74 / M ADM Date: 12/13/24 Loc: CR Attending Dr: ARMIDA GUTIERREZ Ordering Physician: Laina Mcqueen M.D. Date of Service: 12/11/24 Procedure(s): ITP Accession Number(s): [id number] cc: [facility] Test Date: 2024-12-11 Pat Name: EMMA JAMES Department: Room: - Gender: Male Manager Mission: : 1950 Requested By: LAINA MCQUEEN Order Number: [id number] Rob MD: ARMIDA GUTIERREZ M.D. Interpretive Statements Patient may continue cardiac rehab as outlined in the treatment plan. Electronically Signed On 12-27-2024 10:19:41 EDT by ARMIDA GUTIERREZ M.D. Dictated By: ARMIDA GUTIERREZ Signed By: 12/27/24 1019 12/27/24 1019 DD/ 1122 TD/TT: Cocoa Powder Mixer Operator:TBHRadiology, Radiologist, - 12/27/2024 [place] [address] Cardiac Rehab Report Signed Patient: EMMA JAMES MR#: [id number] : 1950 Acct:[id number] Age/Sex: 74 / M ADM Date: 12/13/24 Loc: CR Attending Dr: ARMIDA GUTIERREZ Ordering Physician: Laina Mcqueen M.D. Date of Service: 12/11/24 Procedure(s): ITP Accession Number(s): [id number] cc: [facility] Test Date: 2024-12-11 Pat Name: EMMA JAMES Department: Room: - Gender: Male Manager Mission: : 1950 Requested By: LAINA MCQUEEN Order Number: [id number] Rob MD: ARMIDA GUTIERREZ M.D. Interpretive Statements Patient may continue cardiac rehab as outlined in the treatment plan. Electronically Signed On 12-27-2024 10:19:41 EDT by ARMIDA GUTIERREZ M.D. Dictated By: ARMIDA GUTIERREZ Signed By: 12/27/24 1019 12/27/24 1019 DD/ 1122 TD/TT: Cocoa Powder Mixer Operator: AB MontanoITPOrdered By: Radiologist Radiology on 00-88-4090[facility] Work Phone: [facility] Work Phone: ITPon 66-91-8007Nicojjocr Study observation (narrative)AB Montano36on 37-40-182856Jelf called back again and I gave her result of echo per Dr. Mcqueen. I then forwarded her to [facility] scheduling to get PFT's set up.[facility] GeneralITPon 47-74-4250Tfwmhecth Study observation (narrative)AB MontanoOrders Onlyon 96-11-8331Roocrj OnlyNormalUniUniversity Hospitals Geneva Medical CenterCA ECHO DOPPLER COMPLETEon 58-50-5007BlcGreen[place] [address] Cardiology Report Signed Patient: EMMA JAMES MR#: [id number] : 1950 Acct:[id number] Age/Sex: 74 / M ADM Date: 12/06/24 Loc: CARD Attending Dr: Laina Mcqueen M.D. Ordering Physician: Laina Mcqueen M.D. Date of Service: 12/06/24 Procedure(s): CA echo doppler complete Accession Number(s): [id number] cc: Laina Mcqueen M.D.; DENNIS IRIZARRY Patient Name: EMMA JAMES MR#: [id number] : 1950 Exam Date: 12/06/2024 Ordering Doctor: [...] Area (VTI): 2.99 cm2, 2.99 cm2 Deceleration [place]: Pressure Half-Time: Peak Velocity(Antegrade Flow): 1.33 m/s Peak Gradient(Antegrade Flow): 7.03 mm[Hg] Mean Velocity(Antegrade Flow): 0.89 m/s Mean Gradient(Antegrade Flow): 3.69 mm[Hg] Velocity Time Integral: 29.14 cm Tricuspid Valve Peak Velocity (Regurgitant Flow): 1.82 m/s, 2.00 m/s, 2.26 m/s Peak Velocity: Pulmonic Valve Mean Gradient: Mean Velocity: Peak Velocity: 1.17 m/s Peak Gradient: 5.52 mm[Hg] (more content not included)...TBHRadiology, Radiologist, MD - 12/07/2024 [place] [address] Cardiology Report Signed Patient: EMMA JAMES MR#: [id number] : 1950 Acct:[id number] Age/Sex: 74 / M ADM Date: 12/06/24 Loc: CARD Attending Dr: Laina Mcqueen M.D. Ordering Physician: Laina Mcqueen M.D. Date of Service: 12/06/24 Procedure(s): CA echo doppler complete Accession Number(s): [id number] cc: Laina Mcqueen M.D.; DENNIS IRIZARRY Patient Name: EMMA JAMES MR#: [id number] : 1950 Exam Date: 12/06/2024 Ordering Doctor: [...] Area (VTI): 2.99 cm2, 2.99 cm2 Deceleration [place]: Pressure Half-Time: Peak Velocity(Antegrade Flow): 1.33 m/s [...] M.D. Signed By: 12/07/241824 DD/ 22 TD/TT: Cocoa Powder Mixer Operator: [facility] HealthRadiology Study observation (narrative)[facility] ECHO DOPPLER COMPLETEOrdered By: Radiologist Radiology on 35-17-4495OSQNCrittenton Behavioral Health Work Phone: all CBC WITH AUTO DIFFon 22-95-0655UGCOGLCAR ABSOLUTE AUTO0.1NOMS HealthcareBasophils/100 WBC (Bld)0.9 %0.2 - 2.0 %[facility] Eosinophils/100 WBC (Bld)3.5 %0.9 - 7.0 %[facility] HealthErythrocyte distribution width (RBC) [Ratio]15.1 %High11.0 - 15.0 %[facility] HealthHematocrit (Bld) [Volume fraction]40.3 %Low42.0 - 54.0 %[facility] HealthHemoglobin (Bld) [Mass/Vol]12.4 g/dLLow14.0 - 18.0 g/dLCrittenton Behavioral HealthIMMATURE GRANULOCYTES ABS AUTO0.03NOSaint Francis Medical CenterImmature granulocytes/100 WBC (Bld)0.6 %High0.0 - 0.5 % [facility] HealthInterpretation and review of laboratory resultsAbnormalNOMS HealthcareLYMPHOCYTES ABSOLUTE AUTO0.9LowNOMS HealthcareLymphocytes/100 WBC (Bld)17.3 %Low20.5 - 60.0 %NOMS HealthcareMCH (RBC) [Entitic mass]24.2 pgLow25.9 - 34.0 pgNOMS HealthcareHC (RBC) [Mass/Vol]30.8 g/dL29.9 - 35.2 g/dLNOMS HealthcareMCV (RBC) [Entitic vol]78.7 fLLow80.0 - 94.0 fLNOMO Healthcare MONOCYTES ABSOLUTE AUTO0.4NOMS HealthcareMonocytes/100 WBC (Bld)7.9 %1.7 - 12.0 %NOMS HealthcareNEUTROPHILS ABSOLUTE AUTO3.8NOMS HealthcareNeutrophils/100 WBC (Bld)69.8 %43.0 - 75.0 %NOMS HealthcarePlatelet mean volume (Bld) [Entitic vol] 10.1 fL9.5 - 13.5 fLNOMO HealthcareTBH EO #0.2NOMS HealthcareTBH GXF005MFSG HealthcareTBH RBC5.12NOMS HealthcareTBH WBC5.4NOMS HealthcareCLINISYNCNOMS HealthcareITPon 08-20-4488[place]im[place] [address] Cardiac Rehab Report Signed Patient: EMMA JAMES MR#: [id number] : 1950 Acct:[id number] Age/Sex: 74 / M ADM Date: 11/14/24 Loc: CR Attending Dr: ARMIDA GUTIERREZ Ordering Physician: Steve Albright D.O. Date of Service: 11/14/24 Procedure(s): ITP Accession Number(s): [id number] cc: [facility] Test Date: 2024-11-14 Pat Name: EMMA JAMES Department: Room: - Gender: Male Manager Mission: : 1950 Requested By: Steve Albright Order Number: [id number] Reading MD: Steve Albright Interpretive Statements Though [...] Dictated By: Steve Albright D.O. Signed By: 11/14/24153311/14/241533 DD/ TD/TT: Cocoa Powder Mixer Operator:ELIUadiologStefany rutledge, - 11/14/2024 [place] [address] Cardiac Rehab Report Signed Patient: EMMA JAMES MR#: [id number] : 1950 Acct:[id number] Age/Sex: 74 / M ADM Date: 11/14/24 Loc: CR Attending Dr: ARMIDA GUTIERREZ Ordering Physician: Steve Albright D.O. Date of Service: 11/14/24 Procedure(s): ITP Accession Number(s): [id number] cc: [facility] Test Date: 2024-11-14 Pat Name: EMMA JAMES Department: Room: - Gender: Male Manager Mission: : 1950 Requested By: Steve Albright Order Number: [id number] Reading MD: Steve Albright Interpretive Statements Though [...] Dictated By: Steve Albright D.O. Signed By: 11/14/24153311/14/241533 DD/ 0856 TD/TT: Cocoa Powder Mixer Operator: AB HealthcareRadiology Study observation (narrative)AB HealthcareITPOrdered By: Radiologist Radiology on 15-52-2187BKXY Healthcare Work Phone: [phone] 14-59-841476SmalozMlyxzeevswUniversity Hospitals Geneva Medical CenterITPon 17-31-3732HzfGreenwood[place] [address] Cardiac Rehab Report Signed Patient: EMMA JAMES MR#: [id number] : 1950 Acct:[id number] Age/Sex: 73 / M ADM Date: 10/16/24 Loc: CR Attending Dr: ARMIDA GUTIERREZ Ordering Physician: Steve Albright D.O. Date of Service: 10/16/24 Procedure(s): ITP Accession Number(s): [id number] cc: [facility] Test Date: 2024-10-16 Pat Name: EMMA JAMES Department: Room: - Gender: Male Manager Mission: : 1950 Requested By: Steve Albright Order Number: [id number] Rob MD: Steve Albright Interpretive Statements Okay to continue with outlined treatment plan. Electronically Signed On 10-16-2024 9:16:57 EDT by Steve Albright Dictated By: Steve Albright D.O. Signed By: 10/16/2417 10/16/24 09 DD/ 0715 TD/TT: Cocoa Powder Mixer Operator:TBHRadiology, Radiologist, MD - 10/16/2024 [place] [address] Cardiac Rehab Report Signed Patient: EMMA JAMES MR#: [id number] : 1950 Acct:[id number] Age/Sex: 73 / M ADM Date: 10/16/24 Loc: CR Attending Dr: ARMIDA GUTIERREZ Ordering Physician: Steve Albright D.O. Date of Service: 10/16/24 Procedure(s): ITP Accession Number(s): [id number] cc: [facility] Test Date: 2024-10-16 Pat Name: EMMA JAMES Department: Room: - Gender: Male Manager Mission: : 1950 Requested By: Steve Albright Order Number: [id number] Rob LYNNE: Steve Albright Interpretive Statements Okay to continue with outlined treatment plan. Electronically Signed On 10-16-2024 9:16:57 EDT by Steve Albright Dictated By: Steve Albright D.O. Signed By: 10/16/24 0917 10/16/24 0917 DD/ 0715 TD/TT: Cocoa Powder Mixer Operator: AB MontanoRadiology Study observation (narrative)AB HealthcareITPOrdered By: Radiologist Radiology on 76-92-5633NLPC [facility] Work Phone: [phone] 17-48-111176QotuyxRmxarcywkaOhioHealth Shelby HospitalITPon 25-18-7271BnyGreen[place] [address] Cardiac Rehab Report Signed Patient: EMMA JAMES MR#: [id number] : 1950 Acct:[id number] Age/Sex: 73 / M ADM Date: 09/20/24 Loc: CR Attending Dr: ARMIDA GUTIERREZ Ordering Physician: Steve Albright D.O. Date of Service: 09/20/24 Procedure(s): ITP Accession Number(s): [id number] cc: [facility] Test Date: 2024-09-20 Pat Name: EMMA JAMES Department: Room: - Gender: Male Manager Mission: : 1950 Requested By: Steve Albright Order Number: [id number] Reading MD: Steve Albright Interpretive Statements Okay to proceed with outlined treatment plan. Electronically Signed On 09-23-2024 13:37:01 EDT by Steve Albright Dictated By: Steve Albright D.O. Signed By: 09/23/24 1337 09/23/24 1337 DD/ 1309 TD/TT: Cocoa Powder Mixer Operator:Stefany Chaudhari MD - 09/23/2024 [place] [address] Cardiac Rehab Report Signed Patient: EMMA JAMES MR#: [id number] : 1950 Acct:[id number] Age/Sex: 73 / M ADM Date: 09/20/24 Loc: CR Attending Dr: ARMIDA GUTIERREZ Ordering Physician: Steve Albright D.O. Date of Service: 09/20/24 Procedure(s): ITP Accession Number(s): [id number] cc: [facility] Test Date: 2024-09-20 Pat Name: EMMA JAMES Department: Room: - Gender: Male Manager Mission: : 1950 Requested By: Steve Albright Order Number: [id number] Reading MD: Steve Albright Interpretive Statements Okay to proceed with outlined treatment plan. Electronically Signed On 09-23-2024 13:37:01 EDT by Steve Albright Dictated By: Steve Albright D.O. Signed By: 09/23/24133609/23/241336 DD/ 1309 TD/TT: Cocoa Powder Mixer Operator: [place] [address] Cardiac Rehab Report Signed Patient: EMMA JAMES MR#: [id number] : 1950 Acct:[id number] Age/Sex: 73 / M ADM Date: 09/20/24 Loc: CR Attending Dr: ARMIDA GUTIERREZ Ordering Physician: Steve Albright D.O. Date of Service: 09/18/24 Procedure(s): ITP Accession Number(s): [id number] cc: [facility] Test Date: 2024-09-18 Pat Name: EMMA JAMES Department: Room: - Gender: Male Manager Mission: : 1950 Requested By: Steve Albright Order Number: [id number] Reading MD: Steve Albright Interpretive Statements Okay to proceed with outlined treatment plan. Electronically Signed On 09-23-2024 13:37:19 EDT by Steve Albright Dictated By: Steve Albright D.O. Signed By: 09/23/24133609/23/241336 DD/ 1307 TD/TT: Cocoa Powder Mixer Operator:ELIUadiologmaty RadiologistMD - 09/23/2024 [place] [address] Cardiac Rehab Report Signed Patient: EMMA JAMES MR#: [id number] : 1950 Acct:[id number] Age/Sex: 73 / M ADM Date: 09/20/24 Loc: CR Attending Dr: ARMIDA GUTIERREZ Ordering Physician: Steve Albright D.O. Date of Service: 09/18/24 Procedure(s): ITP Accession Number(s): [id number] cc: [facility] Test Date: 2024-09-18 Pat Name: EMMA JAMES Department: Room: - Gender: Male Manager Mission: : 1950 Requested By: Steve Albright Order Number: [id number] Reading MD: Steve Albright Interpretive Statements Okay to proceed with outlined treatment plan. Electronically Signed On 09-23-2024 13:37:19 EDT by Steve Albright Dictated By: Steve Albright D.O. Signed By: 09/23/24 1337 09/23/24 1337 DD/ 1307 TD/TT: Cocoa Powder Mixer Operator: AB Nugent Panel InformationOrdered By: Radiologist Radiology on 73-42-1355DMXF Healthcare Work Phone: ITPon 23-25-5280Hrchsldmw Study observation (narrative)NOMS HealthcareITPon 19-98-7635Svofrnbii Study observation (narrative)NOMS HealthcareALL CBC WITH AUTO DIFFon 47-08-4667ZVMWULJLK ABSOLUTE IHQS4LCYZ HealthcareBasophils/100 WBC (Bld)0.7 %0.2 - 2.0 %[facility] Eosinophils/100 WBC (Bld)3.7 %0.9 - 7.0 %NOMS HealthcareErythrocyte distribution width (RBC) [Ratio]13.1 %11.0 - 15.0 %NOMS HealthcareHematocrit (Bld) [Volume fraction]35.7 %Low42.0 - 54.0 %NOMS HealthcareHemoglobin (Bld) [Mass/Vol]11.2 g/dLLow14.0 - 18.0 g/dLNOMO HealthcareIMMATURE GRANULOCYTES ABS AUTO0.02NOMO HealthcareImmature granulocytes/100 WBC (Bld)0.4 %0.0 - 0.5 %[facility] Interpretation and review of laboratory resultsAbnormalNOSaint Francis Medical Center LYMPHOCYTES ABSOLUTE QGBD5LbuBVWY [facility] HospitalLymphocytes/100 WBC (Bld)18 %Low20.5 - 60.0 %[facility] NetworkH (RBC) [Entitic mass]28.9 pg25.9 - 34.0 pgNOSaint John's Regional Health CenterHC (RBC) [Mass/Vol]31.4 g/dL29.9 - 35.2 g/dLNortheast Missouri Rural Health NetworkV (RBC) [Entitic vol]92.2 fL80.0 - 94.0 fLCrittenton Behavioral HealthMONOCYTES ABSOLUTE AUTO0.5NOMS HealthcareMonocytes/100 WBC (Bld)9.3 %1.7 - 12.0 %[facility] HealthNEUTROPHILS ABSOLUTE AUTO3.9NOMS [facility] HospitalNeutrophils/100 WBC (Bld)67.9 %43.0 - 75.0 %[facility] HealthPlatelet mean volume (Bld) [Entitic vol]9.9 fL9.5 - 13.5 fLNOSaint Francis Medical CenterTBH EO #0.2NOMS HealthcareTB QOZ171LZWS [facility] HospitalTB RBC3.87LowNOMS [facility] HospitalTB WBC5.7NOMO HealthcareCLINISYNCNOMS HealthcareTelemedicineon 79-11-1086NwpyfhhpajjcMlpsejZsveldeavu [facility] HospitalBawestern state hospital metabolic 1998 panelon 86-60-7583Ouosnrv [Mass/Vol]9.7 mg/dL8.6 - 10.2 mg/dLNOMO HealthcareChloride [Moles/Vol]100 mmol/L96 - 106 mmol/LNOMS HealthcareCO2 [Moles/Vol]29 mmol/L20 - 29 mmol/LNOMS HealthcareCreatinine [Mass/Vol]1.01 mg/dL 0.76 - 1.27 mg/dLNOMO HealthcareGFR/1.73 sq M.predicted among non-blacks MDRD (S/P/Bld) [Vol rate/Area]78 mL/min/{1.73_m2}59 - PINF mL/min/1.73N[facility] Glucose [Mass/Vol]98 mg/dL70 - 99 mg/dLNOMS HealthcarePotassium [Moles/Vol]5 mmol/L3.5 - 5.2 mmol/LNOMS HealthcareSodium [Moles/Vol]141 mmol/L134 - 144 mmol/LNOMS HealthcareUrea nitrogen [Mass/Vol]19 mg/dL8 - 27 mg/dLNOMO Healthcare Urea nitrogen/Creatinine [Mass ratio]19 mg/mg10 - 24NOMO HealthcarePerformed at: - [facility] [address], [address], [place], [place] [address] Diplomatic Interpreter/Translator: Johana rIeland MD, Phone: [phone] Rpwnmbrtfq11yg 34-66-257531ZmcejbDyquodgombAultman Orrville Hospital WITH AUTO DIFFERENTIAL on 64-28-4367Huhwsewkm (Bld) [#/Vol]0.06 10*3/uLNormal0.00-0.20UnGuernsey Memorial HospitalComment on above:Performed By: #### [id number] ####[facility] ([facility])[address] [place], [place] [address]Tvixazyeb/100 WBC (Bld) 0.5 %Normal0.0-1.0UnGuernsey Memorial HospitalComment on above:Performed By: #### [id number] ####[facility] ([facility])[address] [place], [place] [address]Femrljxduxz (Bld) [#/Vol]0.11 10*3/uLNormal0.00-0.50UnGuernsey Memorial HospitalComment on above:Performed By: #### [id number] ####[facility] ([facility])[address] [place], [place] [address]Ieztsagbmhw/100 WBC (Bld)1.0 %Normal 0.0-6.0UnGuernsey Memorial HospitalComment on above:Performed By: #### [id number] ####[facility] ([facility])[address] [place] [address] Erythrocyte distribution width (RBC) [Ratio]14.3 %Topacw09.5-15.0UnGuernsey Memorial HospitalComment on above:Performed By: #### [id number] ####[facility] ([facility])[address] [place], [place] [address]PHJRZOLMYCX MEAN CORPUSCULAR HEMOGLOBIN CONCENTRATION (G/DL) BY DMGDRXXOF37.9 g/dLLow32.0-35.0 [facility] LimaComment on above:Performed By: #### [id number] ####[facility] ([facility])[address] [place], [place] [address]Ehgbweiaxo (Bld) [Volume fraction]33.3 %Low39.0-50.0UnGuernsey Memorial HospitalComment on above:Performed By: #### [id number] ####[facility] ([facility])[address] [place], [place] [address]Tbotlrudhc (Bld) [Mass/Vol]10.3 g/dLLow13.0-17.0UnGuernsey Memorial HospitalComment on above:Performed By: #### [id number] ####[facility] ([facility])[address] [place], [place] [address]Qrglpsdw granulocytes (Bld) [#/Vol]0.19 10*3/uLNormal0.00-0.20UnGuernsey Memorial Hospital Comment on above:Performed By: #### [id number] ####[facility] ([facility])[address] [place], [place] [address]Gkjtnltl granulocytes/100 WBC (Bld)1.7 %High0.0-1.0 [facility] LimaComment on above:Performed By: #### [id number] ####[facility] ([facility])[address] [place], [place] [address]Ywvqqmkzphy (Bld) [#/Vol]0.86 10*3/uLLow1.20-4.00UnGuernsey Memorial HospitalComment on above:Performed By: #### [id number] ####[facility] ([facility])[address] [place], [place] [address]Egavvysufws/100 WBC (Bld)7.8 %Low20.0-45.0UnGuernsey Memorial HospitalComment on above:Performed By: #### [id number] ####[facility] ([facility])[address] [place] [address]DYA (RBC) [Entitic mass] 29.9 boUbvctz81.0-33.0UnGuernsey Memorial HospitalComment on above: Performed By: #### [id number] ####[facility] ([facility] [place], [place] [address]RLG (RBC) [Entitic vol]96.5 hGLojkik42.0-98.0UnGuernsey Memorial HospitalComment on above:Performed By: #### [id number] ####[facility] ([facility] [place], [place] [address]Vijaoedte (Bld) [#/Vol] 0.83 10*3/uLNormal0.10-1.00UnGuernsey Memorial HospitalComment on above: Performed By: #### [id number] ####[facility] ([facility])[address] [facility] HEALTHAudreyROC[place], [place] [address]Zwhzzqjup/100 WBC (Bld)7.5 %Normal5.0-12.0UnGuernsey Memorial HospitalComment on above:Performed By: #### [id number] ####[facility] ([facility])[address] [facility]ORD[facility] HEALTHAudreyROCHESTER, [place] [address]Mcrwagpsgqj (Bld) [#/Vol] 9.04 10*3/uLHigh1.60-7.60UnGuernsey Memorial HospitalComment on above: Performed By: #### [id number] ####[facility] ([facility])[address] [facility]ORD[facility] HEALTHAudreyROCHESTER, [place] [address]Ytmhtiihtgz/100 WBC (Bld)81.5 %High40.0-72.0UnGuernsey Memorial HospitalComment on above:Performed By: #### [id number] ####[facility] ([facility])[address] [place], [place] [address]HJFR (PER 100 WBCS) BY AUTOMATED COUNT0.0 %Mnsorf2CtgnmhsjseGuernsey Memorial HospitalComment on above: Performed By: #### [id number] ####[facility] ([facility] [address]AKMMQXYEC (10*3/UL) IN BLOOD AUTOMATED ANQKP208 10*3/uLHigh 150-400UnGuernsey Memorial HospitalComment on above:Performed By: #### [id number] ####[facility] ([facility] [place] [address]NOG (Bld) [#/Vol]3.45 10*6/uLLow4.20-5.70UnGuernsey Memorial HospitalComment on above:Performed By: #### [id number] ####[facility] ([facility] [address]OZH (Bld) [#/Vol]11.09 10*3/uLHigh4.00-10.60UnGuernsey Memorial HospitalComment on above:Performed By: #### [id number] ####[facility] ([facility] [place] [address]LJJVCMDZJEMUZ METABOLIC PANELon 86-22-8984Hkddezs [Mass/Vol]4.1 g/dLNormal3.5-5.7UnGuernsey Memorial HospitalComment on above:Performed By: #### [id number] ####[facility] ([facility] [place], [place] [address]SIE [Catalytic activity/Vol]158 U/L Osec46-449RezaloaibeGuernsey Memorial HospitalComment on above:Performed By: #### [id number] ####[facility] ([facility] [place], [place] [address]IWZ [Catalytic activity/Vol]57 U/LHigh7-52UnGuernsey Memorial HospitalComment on above:Performed By: #### [id number] ####[facility] ([facility] [place], [place] [address]Dzxig gap [Moles/Vol]9 mmol/LNormal7-20UnGuernsey Memorial HospitalComment on above:Performed By: #### [id number] ####[facility] ([facility] [address]EUU [Catalytic activity/Vol]32 U/L Oisjgp99-25VnmoqiezwuGuernsey Memorial HospitalComment on above:Performed By: #### [id number] ####[facility] ([facility] [place] [address] Bilirubin [Mass/Vol]0.8 mg/dLNormal0.3-1.0UnGuernsey Memorial Hospital Comment on above:Performed By: #### [id number] ####[facility] ([facility] [place], [place] [address]Dezwjjk [Mass/Vol]9.2 mg/dLNormal8.6-10.3UnGuernsey Memorial HospitalComment on above:Performed By: #### [id number] ####[facility] ([facility] [place] [address]Pocgcrgq [Moles/Vol]99 mmol/VXwqupz14-726UqpafeexvwGuernsey Memorial HospitalComment on above:Performed By: #### [id number] ####[facility] ([facility] [place] [address] CO2 [Moles/Vol]33 mmol/DQftm37-71WoehyblcvxGuernsey Memorial HospitalComment on above:Performed By: #### [id number] ####[facility] ([facility] [place], [place] [address]Wwrdlenhzk [Mass/Vol]1.10 mg/dLNormal0.70-1.30UnGuernsey Memorial HospitalComment on above:Performed By: #### [id number] ####[facility] ([facility] [place], [place] [address]VCFPDTHDRS FILTRATION RATE ML/MIN/1.73 SQ M.TAZWGFHSL91.4 mL/min/1.73m*2Normal>60.0UnGuernsey Memorial HospitalComment on above:Result Comment: [facility]???s estimated glomerular filtration rate (eGFR) will no [...] potential consequences that do not disproportionately affect anyone group of individuals.Performed By: #### [id number] ####[facility] ([facility]))[address] [place], [place] [address]Fcqgnkj [Mass/Vol]90 mg/tCArwgjk39-120QcutkltdgiGuernsey Memorial HospitalComment on above:Performed By: #### [id number] ####[facility] ([facility] [place], [place] [address]Kfxlaleyl [Moles/Vol]3.8 mmol/LNormal3.5-5.1UnGuernsey Memorial HospitalComment on above:Performed By: #### [id number] ####[facility] ([facility] [place], [place] [address]Yftfeur [Mass/Vol]7.4 g/dLNormal 6.0-8.3UnGuernsey Memorial HospitalComment on above:Performed By: #### [id number] ####[facility] ([facility] [place], [place] [address]Gknqdt [Moles/Vol]137 mmol/IYwzdqp277-349MzpnjglnfiGuernsey Memorial HospitalComment on above:Performed By: #### [id number] ####[facility] ([facility] [place], [place] [address]Znwm nitrogen [Mass/Vol]20 mg/dLNormal7-25UnGuernsey Memorial HospitalComment on above:Performed By: #### [id number] ####[facility] ([facility] [place], [place] [address]HEPF NITROGEN/CREATININE (MASS RATIO) IN SER/PLAS18.2NormalUnGuernsey Memorial HospitalComment on above: Performed By: #### [id number] ####[facility] ([facility] [place] [address]Ajbch 33-62-1836VcdCatiboCjeprkxepj of [place] Medical CenterMAGNESIUMon 71-78-5469Tthghzmmo [Mass/Vol]2.3 mg/dLNormal1.9-2.7UnGuernsey Memorial HospitalComment on above:Performed By: #### [id number] ####[facility] ([facility] [place] [address]dt 31-75-500974SRV with call back number with appointment details 08/29/2024 @ 1:00pm with labs and xray to be completed prior. Patient called back and confirmed details.NormalUnGuernsey Memorial HospitalTelephoneon 20-86-4833IeqtuycscAiercxCaybjgbbhk [facility]36 on 00-30-560600ZapyhgWuqyhzmckm [facility]36NormalUniversCleveland Clinic Union HospitalTelephoneon 59-00-6372CvbxyfitvWlfrpsTmnuvoibmp of [facility] Inueqs05br 29-39-488388ThcjknKpwximrwmq of [facility] Nhgzby66Wtoztp [facility]30NormalUniversCleveland Clinic Union Hospital BASIC METABOLIC PANELon 18-71-3571Vwzfv gap [Moles/Vol]9 mmol/LNormal7-20 [facility] LimaComment on above:Performed By: #### [id number] ####[facility] ([facility] [place], [place] [address]Fciczmk [Mass/Vol]7.8 mg/dLLow8.6-10.3UnGuernsey Memorial HospitalComment on above:Performed By: #### [id number] ####[facility] ([facility] [place], [place] [address]Acyhenhp [Moles/Vol]101 mmol/CMkevct07-288DbvbtdfmwaGuernsey Memorial HospitalComment on above:Performed By: #### [id number] ####[facility] ([facility] [place] [address]SY6 [Moles/Vol]29 mmol/LNormal 21-31UnGuernsey Memorial HospitalComment on above:Performed By: #### [id number] ####[facility] ([facility] [place] [address]Zrquwszohb [Mass/Vol]0.66 mg/dLLow0.70-1.30UnGuernsey Memorial HospitalComment on above:Performed By: #### [id number] ####[facility] ([facility] [place] [address]GBHKWCSWWR FILTRATION RATE ML/MIN/1.73 SQ M.OVZJOTKUT63.4 mL/min/1.73m*2Normal>60.0UnGuernsey Memorial HospitalComment on above: Result Comment: [facility]???s estimated glomerular filtration rate (eGFR) will no [...] potential consequences that do not disproportionately affect anyone group of individuals.Performed By: #### [id number] ####[facility] ([facility] [place] [address]Yqbxtip [Mass/Vol]90 mg/kJNtvlag58-817AqxtvdnzeeGuernsey Memorial HospitalComment on above:Performed By: #### [id number] ####[facility] ([facility] [place] [address]Xewwmhzvi [Moles/Vol]3.5 mmol/LNormal3.5-5.1UnGuernsey Memorial HospitalComment on above:Performed By: #### [id number] ####[facility] ([facility] [place] [address] Sodium [Moles/Vol]135 mmol/BNwc738-772WlnnwvitvmGuernsey Memorial HospitalComment on above:Performed By: #### [id number] ####[facility] ([facility] [place], [place] [address]Eyta nitrogen [Mass/Vol]20 mg/dLNormal7-25UnGuernsey Memorial HospitalComment on above:Performed By: #### [id number] ####[facility] ([facility] [place], [place] [address]FCUO NITROGEN/CREATININE (MASS RATIO) IN SER/PLAS30.3NormalUniversCleveland Clinic Union HospitalComment on above: Performed By: #### [id number] ####[facility] ([facility] [place] [address]XDBdc 78-82-2717Knszkvwhdrc distribution width (RBC) [Ratio]13.7 % Pqpund95.5-15.0UnGuernsey Memorial HospitalComment on above:Performed By: #### [id number] ####[facility] ([facility]))[address] [place] [address] ERYTHROCYTE MEAN CORPUSCULAR HEMOGLOBIN CONCENTRATION (G/DL) BY FQZOQADLT07.8 g/lDDhjhza82.0-35.0UnGuernsey Memorial HospitalComment on above:Performed By: #### [id number] ####[facility] ([facility]))[address], [place] [address]Vtlqkloyfa (Bld) [Volume fraction]24.7 %Low39.0-50.0UnGuernsey Memorial HospitalComment on above:Performed By: #### [id number] ####[facility] ([facility]))[address], [place] [address]Bjvwggxtcr (Bld) [Mass/Vol]8.1 g/dLLow 13.0-17.0UnGuernsey Memorial HospitalComment on above:Performed By: #### [id number] ####[facility] ([facility]))[address], [place] [address]NJL (RBC) [Entitic mass]30.2 daTzxfss74.0-33.0UnGuernsey Memorial HospitalComment on above:Performed By: #### [id number] ####[facility] ([facility]))[address] [place] [address]GZS (RBC) [Entitic vol]92.2 hJXjhpjn52.0-98.0UnGuernsey Memorial HospitalComment on above:Performed By: #### [id number] ####[facility] ([facility]))[address] [address]UALZBQWLF (10*3/UL) IN BLOOD AUTOMATED [id number] 10*3/uEYohurb184-024PxlcfrzpilGuernsey Memorial Hospital Comment on above:Performed By: #### [id number] ####[facility] ([facility]))[address] [address]YAC (Bld) [#/Vol]2.68 10*6/uLLow4.20-5.70UnGuernsey Memorial HospitalComment on above:Performed By: #### [id number] ####[facility] ([facility]))[address] [address]MDC (Bld) [#/Vol]8.53 10*3/uLNormal4.00-10.60UnGuernsey Memorial HospitalComment on above: Performed By: #### [id number] ####[facility] ([facility]))[address] [place] [address]QWnw 52-86-3018ZRYjwbhoOabolftylr of [facility] Letter (Out)on 23-31-4363Psrqbf (Out)NormalUnGuernsey Memorial Hospital MAGNESIUMon 30-26-6550Hgyowvhto [Mass/Vol]1.9 mg/dLNormal1.9-2.7UnGuernsey Memorial HospitalComment on above:Performed By: #### [id number] ####[facility] ([facility]))[address] [address]QAUTOFJKfj 08-21-2024 NURSNOTENormalUniversity Elyria Memorial HospitalNURSNOTENormalUniversity Elyria Memorial HospitalPOCT GLUCOSE METER UNSOLICITED RESULTSon 64-34-5327Adcjscq [Mass/Vol]110 mg/hPWrjg47-450TsvryikyaoGuernsey Memorial HospitalComment on above:Order Comment: Waived Testing in the ED is performed under the ED CLIA certificate #[id number].Result Comment: [id number] By: #### [id number] ####[facility] ([facility]))[address] [place], [place] [address]Aiimdgd [Mass/Vol]97 mg/tVNojfok12-287TlkhsobqiyGuernsey Memorial HospitalComment on above:Order Comment: Waived Testing in the ED is performed under the ED CLIA certificate #[id number].Result Comment: [id number] By: #### [id number] ####[facility] ([facility]))[address] [place], [place] [address]NABQK METABOLIC PANELon 55-49-3192Gzbmt gap [Moles/Vol]8 mmol/LNormal7-20UnGuernsey Memorial HospitalComment on above:Performed By: #### [id number] ####[facility] ([facility]))[address] [place], [place] [address]Dbvlteb [Mass/Vol]7.9 mg/dLLow8.6-10.3 [facility] Hospital LimaComment on above:Performed By: #### [id number] ####[facility] ([facility]))[address] [place], [place] [address]Egrlxsyu [Moles/Vol]99 mmol/MZwdatv30-303ZnedeylpspGuernsey Memorial HospitalComment on above:Performed By: #### [id number] ####[facility] ([facility]))[address] [place], [place] [address]VE8 [Moles/Vol]32 mmol/ASoni24-25WiocdpfpqoGuernsey Memorial HospitalComment on above:Performed By: #### [id number] ####[facility] ([facility]))[address] [place], [place] [address]Epvzntlbnw [Mass/Vol]0.75 mg/dLNormal 0.70-1.30UnGuernsey Memorial HospitalComment on above:Performed By: #### [id number] ####[facility] ([facility]))[address] [place] [address]WKZOKUJCUE FILTRATION RATE ML/MIN/1.73 SQ M.OJSXVZOBG53.7 mL/min/1.73m*2Normal>60.0 [facility] LimaComment on above:Result Comment: [facility]???s estimated glomerular filtration rate (eG FR) will no longer include consideration of race [...] potential consequences that do not disproportionately affect anyone group of individuals. Performed By: #### [id number] ####[facility] ([facility]))[address] [place] [address]Akahzcr [Mass/Vol]108 mg/jZWjdf11-254TljtwffsjfGuernsey Memorial HospitalComment on above:Performed By: #### [id number] ####[facility] ([facility]))[address] [place] [address]Jbonobsmc [Moles/Vol]3.7 mmol/LNormal 3.5-5.1UnGuernsey Memorial HospitalComment on above:Performed By: #### [id number] ####[facility] ([facility]))[address] [place] [address]Dpxwhb [Moles/Vol]135 mmol/ABiz505-319DiazzjfzleGuernsey Memorial HospitalComment on above:Performed By: #### [id number] ####[facility] ([facility]))[address] [place], [place] [address]Jypk nitrogen [Mass/Vol]26 mg/dLHigh7-25UnGuernsey Memorial HospitalComment on above:Performed By: #### [id number] ####[facility] ([facility]))[address], [place] [address]QHLS NITROGEN/CREATININE (MASS RATIO) IN SER/PLAS34.7NormalUniversCleveland Clinic Union HospitalComment on above: Performed By: #### [id number] ####[facility] ([facility]))[address] [address]DTClp 59-58-2606Ntoqmsaxnjx distribution width (RBC) [Ratio]13.5 % Nvovgg82.5-15.0UnGuernsey Memorial HospitalComment on above:Performed By: #### [id number] ####[facility] ([facility]))[address] [place] [address] ERYTHROCYTE MEAN CORPUSCULAR HEMOGLOBIN CONCENTRATION (G/DL) BY PZCKISQKZ84.3 g/mJAidrip92.0-35.0UnGuernsey Memorial HospitalComment on above:Performed By: #### [id number] ####[facility] ([facility]))[address] [place] [address]Xmxgulyvgm (Bld) [Volume fraction]23.4 %Low39.0-50.0UnGuernsey Memorial HospitalComment on above:Performed By: #### [id number] ####[facility] ([facility]))[address] [place], [place] [address]Tckuushvvm (Bld) [Mass/Vol]7.8 g/dLLow 13.0-17.0UnGuernsey Memorial HospitalComment on above:Performed By: #### [id number] ####[facility] ([facility]))[address], [place] [address]JMJCFVHR PLATELET FRACTION %5.3 %Normal0.8-6.3UnGuernsey Memorial HospitalComment on above:Performed By: #### [id number] ####[facility] ([facility]))[address] [place], [place] [address]BGF (RBC) [Entitic mass]30.6 wkLzynbj80.0-33.0UnGuernsey Memorial HospitalComment on above:Performed By: #### [id number] ####[facility] ([facility]))[address] [place], [place] [address]FSQ (RBC) [Entitic vol] 91.8 sPVbawkj96.0-98.0UnGuernsey Memorial HospitalComment on above: Performed By: #### [id number] ####[facility] ([facility]))[address] [place] [address]GYXIYIWLW (10*3/UL) IN BLOOD AUTOMATED [id number] 10*3/uLLow 150-400UnGuernsey Memorial HospitalComment on above:Performed By: #### [id number] ####[facility] ([facility]))[address] [place] [address]ZBV (Bld) [#/Vol]2.55 10*6/uLLow4.20-5.70UnGuernsey Memorial HospitalComment on above:Performed By: #### [id number] ####[facility] ([facility]))[address] [address]HOZ (Bld) [#/Vol]9.47 10*3/uLNormal4.00-10.60UnGuernsey Memorial HospitalComment on above:Performed By: #### [id number] ####[facility] ([facility]))[address] [place] [address]NEXPUHYAEsp 08-20-2024 Magnesium [Mass/Vol]2.1 mg/dLNormal1.9-2.7UnGuernsey Memorial Hospital Comment on above:Performed By: #### [id number] ####[facility] ([facility]))[address] [address]JUWH GLUCOSE METER UNSOLICITED RESULTSon 08-20-2024 Glucose [Mass/Vol]103 mg/sAVsvvom84-913CdaxknzdsfKindred Hospital Lima Comment on above:Order Comment: Waived Testing in the ED is performed under the ED CLIA certificate #[id number].Result Comment: zncjgpi41Jwhbtdife By: #### [id number] ####[facility] ([facility]))[address] [place] [address]Gyrgean [Mass/Vol]113 mg/oHFliz83-020OmufoqsqnuGuernsey Memorial HospitalComment on above:Order Comment: Waived Testing in the ED is performed under the ED CLIA certificate #[id number].Result Comment: eboltzPerformed By: #### [id number] ####[facility] ([facility])[address] [place] [address]Psjuzis [Mass/Vol]161 mg/sQHlhp89-190GkfofogprkGuernsey Memorial HospitalComment on above:Order Comment: Waived Testing in the ED is performed under the ED CLIA certificate #[id number].Result Comment: eboltzPerformed By: #### [id number] ####[facility] ([facility])[address] [address]Ruiyilg [Mass/Vol]122 mg/sTUrgu96-257DfnzisljvhGuernsey Memorial HospitalComment on above:Order Comment: Waived Testing in the ED is performed under the ED CLIA certificate #[id number].Result Comment: eboltzPerformed By: #### [id number] ####[facility] ([facility])[address] [place] [address]37im 08-19-2024 30NormalUniversity Elyria Memorial Hospital30NormalUniversity [facility] Memorial Hospital30NormalUniversity Elyria Memorial HospitalBASIC METABOLIC PANELon 71-36-1414Ypvqh gap [Moles/Vol]8 mmol/LNormal7-20UnGuernsey Memorial HospitalComment on above:Performed By: #### [id number] ####[facility] ([facility])[address] [place], [place] [address]Upzfqql [Mass/Vol]8.1 mg/dLLow8.6-10.3 [facility] LimaComment on above:Performed By: #### [id number] ####[facility] ([facility])[address], [place] [address]Jorgwbzr [Moles/Vol]99 mmol/MTforgr20-917GekpsbaaykGuernsey Memorial HospitalComment on above:Performed By: #### [id number] ####[facility] ([facility])[address], [place] [address]NN3 [Moles/Vol]31 mmol/RGdvjhn38-69BnyycsuiasGuernsey Memorial HospitalComment on above:Performed By: #### [id number] ####[facility] ([facility]))[address] [address]Jljgqynuat [Mass/Vol]0.81 mg/dLNormal 0.70-1.30UnGuernsey Memorial HospitalComment on above:Performed By: #### [id number] ####[facility] ([facility]))[address] [place] [address]VTFGLPLZPI FILTRATION RATE ML/MIN/1.73 SQ M.XOZIOGIWJ08.5 mL/min/1.73m*2Normal>60.0 [facility] LimaComment on above:Result Comment: [facility]???s estimated glomerular filtration rate (eG FR) will no longer include consideration of race [...] potential consequences that do not disproportionately affect anyone group of individuals. Performed By: #### [id number] ####[facility] ([facility]))[address] [address]Huymfpc [Mass/Vol]115 mg/sLZnly37-089YsfvptmmtvGuernsey Memorial HospitalComment on above:Performed By: #### [id number] ####[facility] ([facility]))[address] [address]Bmpvrljwa [Moles/Vol]3.9 mmol/LNormal 3.5-5.1UnGuernsey Memorial HospitalComment on above:Performed By: #### [id number] ####[facility] ([facility]))[address] [address]Mtwxtz [Moles/Vol]134 mmol/OTxl878-088XsbiqjfextGuernsey Memorial HospitalComment on above:Performed By: #### [id number] ####[facility] ([facility]))[address], [place] [address]Ooyv nitrogen [Mass/Vol]28 mg/dLHigh7-25UnGuernsey Memorial HospitalComment on above:Performed By: #### [id number] ####[facility] ([facility]))[address], [place] [address]SSPT NITROGEN/CREATININE (MASS RATIO) IN SER/PLAS34.6NormalUniversCleveland Clinic Union HospitalComment on above: Performed By: #### [id number] ####[facility] ([facility]))[address], [place] [address]Fpbub gap [Moles/Vol]8 mmol/LNormal7-20UnGuernsey Memorial HospitalComment on above:Performed By: #### [id number] ####[facility] ([facility]))[address], [place] [address]Dbgabwf [Mass/Vol]8.0 mg/dLLow8.6-10.3 [facility] LimaComment on above:Performed By: #### [id number] ####[facility] ([facility]))[address], [place] [address]Ydwibsyv [Moles/Vol]101 mmol/OKpmswu13-619DykwtmyrojGuernsey Memorial HospitalComment on above:Performed By: #### [id number] ####[facility] ([facility]))[address], [place] [address]ZH6 [Moles/Vol]29 mmol/BPjafms37-53JrybofusvyGuernsey Memorial HospitalComment on above:Performed By: #### [id number] ####[facility] ([facility]))[address], [place] [address]Kxjyjoydpw [Mass/Vol]0.76 mg/dLNormal 0.70-1.30UnGuernsey Memorial HospitalComment on above:Performed By: #### [id number] ####[facility] ([facility]))[address], [place] [address]HSEYCTHJPI FILTRATION RATE ML/MIN/1.73 SQ M.BLYNZSWAH33.3 mL/min/1.73m*2Normal>60.0 [facility] LimaComment on above:Result Comment: [facility]???s estimated glomerular filtration rate (eG FR) will no longer include consideration of race [...] potential consequences that do not disproportionately affect anyone group of individuals. Performed By: #### [id number] ####[facility] ([facility]))[address] [place], [place] [address]Nsjyazs [Mass/Vol]116 mg/zINxio25-708BmrdhgsmfkGuernsey Memorial HospitalComment on above:Performed By: #### [id number] ####[facility] ([facility]))[address], [place] [address]Atbqijpoy [Moles/Vol]4.1 mmol/LNormal 3.5-5.1UnGuernsey Memorial HospitalComment on above:Performed By: #### [id number] ####[facility] ([facility]))[address], [place] [address]Laxfrg [Moles/Vol]134 mmol/WMki495-936TayudzhixoGuernsey Memorial HospitalComment on above:Performed By: #### [id number] ####[facility] ([facility]))[address], [place] [address]Qlws nitrogen [Mass/Vol]26 mg/dLHigh7-25UnGuernsey Memorial HospitalComment on above:Performed By: #### [id number] ####[facility] ([facility]))[address], [place] [address]AHSJ NITROGEN/CREATININE (MASS RATIO) IN SER/PLAS34.2NormalUnGuernsey Memorial HospitalComment on above: Performed By: #### [id number] ####[facility] ([facility]))[address], [place] [address]ABLbz 73-80-4115Gzzfvhujdga distribution width (RBC) [Ratio]13.3 % Wlmmdf41.5-15.0UnGuernsey Memorial HospitalComment on above:Performed By: #### [id number] ####[facility] ([facility]))[address] [place] [address] ERYTHROCYTE MEAN CORPUSCULAR HEMOGLOBIN CONCENTRATION (G/DL) BY SWWJPEIFC25.5 g/zQKhzrfl62.0-35.0UnGuernsey Memorial HospitalComment on above:Performed By: #### [id number] ####[facility] ([facility]))[address], [place] [address]Hokybxddvu (Bld) [Volume fraction]26.5 %Low39.0-50.0UnGuernsey Memorial HospitalComment on above:Performed By: #### [id number] ####[facility] ([facility]))[address], [place] [address]Hkteguvspc (Bld) [Mass/Vol]8.6 g/dLLow 13.0-17.0UnGuernsey Memorial HospitalComment on above:Performed By: #### [id number] ####[facility] ([facility]))[address], [place] [address]UUNJUNWY PLATELET FRACTION %5.6 %Normal0.8-6.3UnGuernsey Memorial HospitalComment on above:Performed By: #### [id number] ####[facility] ([facility]))[address], [place] [address]BDG (RBC) [Entitic mass]30.4 efIkepxn36.0-33.0UnGuernsey Memorial HospitalComment on above:Performed By: #### [id number] ####[facility] ([facility]))[address] [place], [place] [address]HEF (RBC) [Entitic vol] 93.6 vSYevwda30.0-98.0UnGuernsey Memorial HospitalComment on above: Performed By: #### [id number] ####[facility] ([facility]))[address], [place] [address]SQGDDHLLH (10*3/UL) IN BLOOD AUTOMATED OICMS077 10*3/uLLow 150-400UnGuernsey Memorial HospitalComment on above:Performed By: #### [id number] ####[facility] ([facility]))[address] [place] [address]CVU (d) [#/Vol]2.83 10*6/uLLow4.20-5.70UnGuernsey Memorial HospitalComment on above:Performed By: #### [id number] ####[facility] ([facility]))[address] [address]URU (Bld) [#/Vol]12.06 10*3/uLHigh4.00-10.60UnGuernsey Memorial HospitalComment on above:Performed By: #### [id number] ####[facility] ([facility] [address]UZPIFJPfe 08-19-2024 CONSULTNormalUniversity Elyria Memorial HospitalMAGNESIUMon 16-55-3152Kyycruktf [Mass/Vol]2.1 mg/dLNormal1.9-2.7UnGuernsey Memorial HospitalComment on above:Performed By: #### [id number] ####[facility] ([facility] [place] [address]Unuwmyffi [Mass/Vol]2.2 mg/dLNormal1.9-2.7UnGuernsey Memorial HospitalComment on above:Performed By: #### [id number] ####[facility] ([facility] [place], [place] [address]DOLT GLUCOSE METER UNSOLICITED RESULTSon 17-76-2814Klspblw [Mass/Vol]168 mg/tGFqnk81-658EegvbvbyhyGuernsey Memorial HospitalComment on above:Order Comment: Waived Testing in the ED is performed under the ED CLIA certificate #[id number].Result Comment: jmuohfr64Nfmviurlz By: #### [id number] ####[facility] ([facility] [address]Buekjpf [Mass/Vol]125 mg/aCQrcz11-850RxopfidlvyGuernsey Memorial HospitalComment on above:Order Comment: Waived Testing in the ED is performed under the ED CLIA certificate #[id number].Result Comment: isimmon5 Performed By: #### [id number] ####[facility] ([facility] [place], [place] [address]Clmspyu [Mass/Vol]136 mg/lJCweu41-567BuhzxyavjdGuernsey Memorial HospitalComment on above:Order Comment: Waived Testing in the ED is performed under the ED CLIA certificate #[id number].Result Comment: isimmon5 Performed By: #### [id number] ####[facility] ([facility] [place], [place] [address]72id 70-90-081792QwyfarNofuvlhlpz of [place] [facility] Qzquhb58 NormalUnGuernsey Memorial HospitalBASIC METABOLIC PANELon 74-16-0946Tnbwn gap [Moles/Vol]9 mmol/LNormal7-20UnGuernsey Memorial HospitalComment on above:Performed By: #### [id number] ####[facility] ([facility] [place], [place] [address]Bpotint [Mass/Vol]8.2 mg/dLLow8.6-10.3UnGuernsey Memorial HospitalComment on above:Performed By: #### [id number] ####[facility] ([facility] [place], [place] [address]Etathlgh [Moles/Vol]102 mmol/LNormal 98-107UnGuernsey Memorial HospitalComment on above:Performed By: #### [id number] ####[facility] ([facility], [place] [address]OU6 [Moles/Vol]29 mmol/FMznktr69-61VtsvdztwztGuernsey Memorial HospitalComment on above:Performed By: #### [id number] ####[facility] ([facility], [place] [address]Factasuayk [Mass/Vol]1.09 mg/dLNormal0.70-1.30UnGuernsey Memorial HospitalComment on above:Performed By: #### [id number] ####[facility] ([facility] [place] [address]FIFPXOAOHT FILTRATION RATE ML/MIN/1.73 SQ M.SCMWZAJQS46.2 mL/min/1.73m*2Normal>60.0UnGuernsey Memorial HospitalComment on above:Result Comment: [facility]???s estimated glomerular filtration rate (eGFR) will no [...] potential consequences that do not disproportionately affect anyone group of individuals.Performed By: #### [id number] ####[facility] ([facility] [place] [address]Ytrmmoj [Mass/Vol]145 mg/dOUhxu40-933LebqjktpcaGuernsey Memorial HospitalComment on above:Performed By: #### [id number] ####[facility] ([facility] [place] [address]Ccktnztal [Moles/Vol]4.8 mmol/LNormal3.5-5.1UnGuernsey Memorial HospitalComment on above:Performed By: #### [id number] ####[facility] ([facility] [place] [address]Afhlat [Moles/Vol]135 mmol/LLow 136-145UnGuernsey Memorial HospitalComment on above:Performed By: #### [id number] ####[facility] ([facility] [place], [place] [address]Zrix nitrogen [Mass/Vol]27 mg/dLHigh7-25UnGuernsey Memorial HospitalComment on above:Performed By: #### [id number] ####[facility] ([facility] [place], [place] [address]OFOD NITROGEN/CREATININE (MASS RATIO) IN SER/PLAS24.8Normal [facility] Hospital LimaComment on above:Performed By: #### [id number] ####[facility] ([facility] [place] [address]SYUIJSPmq 29-40-8545Mzxxlqi [Mass/Vol]8.2 mg/dLLow8.6-10.3UnGuernsey Memorial HospitalComment on above:Performed By: #### [id number] ####[facility] ([facility] [place] [address]JKJfd 46-71-8201Dntrmmtlcop distribution width (RBC) [Ratio]13.5 %Xfmppc79.5-15.0UnGuernsey Memorial HospitalComment on above:Performed By: #### [id number] ####[facility] ([facility] [address]NZGCAMTGPII MEAN CORPUSCULAR HEMOGLOBIN CONCENTRATION (G/DL) BY ZRNDLJCAP31.0 g/mKWglzew38.0-35.0UnGuernsey Memorial HospitalComment on above:Performed By: #### [id number] ####[facility] ([facility] [place] [place] [address]Vfrbgpecht (Bld) [Volume fraction]26.7 %Low39.0-50.0UnGuernsey Memorial HospitalComment on above: Performed By: #### [id number] ####[facility] ([facility]))[address] [address]Omeetqeoxk (Bld) [Mass/Vol]8.8 g/dLLow13.0-17.0UnGuernsey Memorial HospitalComment on above:Performed By: #### [id number] ####[facility] ([facility]))[address], [place] [address]UZVPCLWR PLATELET FRACTION %4.0 %Normal0.8-6.3UnGuernsey Memorial HospitalComment on above: Performed By: #### [id number] ####[facility] ([facility]))[address] [place] [address]GFG (RBC) [Entitic mass]30.4 liJphall16.0-33.0UnGuernsey Memorial HospitalComment on above:Performed By: #### [id number] ####[facility] ([facility]))[address] [place] [address]GDE (RBC) [Entitic vol] 92.4 tWAckmrx23.0-98.0UnGuernsey Memorial HospitalComment on above: Performed By: #### [id number] ####[facility] ([facility]))[address] [place] [address]BYQGMMRVW (10*3/UL) IN BLOOD AUTOMATED WQHET374 10*3/uLLow 150-400UnGuernsey Memorial HospitalComment on above:Performed By: #### [id number] ####[facility] ([facility]))[address] [place] [address]IZV (Bld) [#/Vol]2.89 10*6/uLLow4.20-5.70UnGuernsey Memorial HospitalComment on above:Performed By: #### [id number] ####[facility] ([facility]))[address] [place] [address]BOR (Bld) [#/Vol]12.74 10*3/uLHigh4.00-10.60UnGuernsey Memorial HospitalComment on above:Performed By: #### [id number] ####[facility] ([facility]))[address] [place] [address]LQWZOMGGQpg 08-18-2024 Magnesium [Mass/Vol]2.2 mg/dLNormal1.9-2.7UnGuernsey Memorial Hospital Comment on above:Performed By: #### [id number] ####[facility] ([facility]))[address] [address]Pykhvwcdj [Mass/Vol]2.1 mg/dLNormal1.9-2.7 [facility] LimaComment on above:Performed By: #### [id number] ####[facility] ([facility]))[address] [place] [address]JWYGSUQIYPal 33-59-9128Rywnqefyv [Mass/Vol]3.2 mg/dLNormal2.5-5.0UnGuernsey Memorial HospitalComment on above:Order Comment: Recheck Phosphorus level 2 hours after infusion.Performed By: #### [id number] ####[facility] ([facility])[address] [place] [place], [place] [address]EBTR GLUCOSE METER UNSOLICITED RESULTSon 83-42-9594Yrjcwhp [Mass/Vol]138 mg/xEOvkt59-780UzwdrfntkmGuernsey Memorial HospitalComment on above:Order Comment: Waived Testing in the ED is performed under the ED CLIA certificate #[id number].Result Comment: mjrcdwq4Dbfmhgpsj By: #### [id number] ####[facility] ([facility]))[address] [place], [place] [address]Yldukmd [Mass/Vol]161 mg/hZRona10-578PbbbagzltmGuernsey Memorial HospitalComment on above:Order Comment: Waived Testing in the ED is performed under the ED CLIA certificate #[id number].Result Comment: cgillsoPerformed By: #### [id number] ####[facility] ([facility])[address] [place], [place] [address]Omxmwqq [Mass/Vol]170 mg/oBZets38-847KdvxugjuhgGuernsey Memorial HospitalComment on above:Order Comment: Waived Testing in the ED is performed under the ED CLIA certificate #[id number].Result Comment: cgillsoPerformed By: #### [id number] ####[facility] ([facility])[address] [place], [place] [address]Gdkjlhc [Mass/Vol]158 mg/jYIpgr66-329SngnewvqolGuernsey Memorial HospitalComment on above:Order Comment: Waived Testing in the ED is performed under the ED CLIA certificate #[id number].Result Comment: cgillsoPerformed By: #### [id number] ####[facility] ([facility])[address] [place], [place] [address]Pbsjawi [Mass/Vol]161 mg/aNNpre44-225PnmvfdjbbwGuernsey Memorial HospitalComment on above:Order Comment: Waived Testing in the ED is performed under the ED CLIA certificate #[id number].Result Comment: rvcdihi0Teltakoxe By: #### [id number] ####[facility] ([facility]))[address] [facility] [place] [address]KNWITZMEJtt 04-01-1410Lwtxyuvax [Moles/Vol]4.6 mmol/LNormal3.5-5.1UnGuernsey Memorial HospitalComment on above:Order Comment: Recheck Potassium level 2 hours after infusion.Performed By: #### [id number] ####[facility] ([facility]))[address] [place] [address]992us 90-45-[address]MubjrlLvyxlalmhr of [place] [facility] Cxqqty71ZshyrdNpqqpcruexCleveland Clinic Union HospitalAPTTon 55-39-6988DPIDSSZSS PARTIAL THROMBOPLASTIN TIME IN PPP BY COAGULATION ASSAY28.8 SecondsNormal 25.0-35.0UnGuernsey Memorial HospitalComment on above:Result Comment: Clinical significance of the APTT is questionable in the presence of heparin. Performed By: #### [id number] ####[facility] ([facility]))[address], [place] [address]HARSXZRC BLOOD GAS WITH CO-OXIMETRYon 35-73-5994Nplw excess Calc (Bld) [Moles/Vol]0.8 mmol/LNormal-2.0-3.0UnGuernsey Memorial HospitalComment on above:Performed By: #### [id number] ####[facility] [id number] [place] [address] USACARBOXYHEMOGLOBIN/HEMOGLOBIN TOTAL % IN BLOOD1.1 %Normal0.0-3.0UnGuernsey Memorial HospitalComment on above: Performed By: #### [id number] ####[facility] [id number] [place] [address] USACO2 (Bld) [Partial pressure]47 mm[Hg]Wgpxup64-03BtlnshcvjhGuernsey Memorial HospitalComment on above:Performed By: #### [id number] ####[facility] [id number] [place] [address] USADEOXYGENATED HEMOGLOBIN IN BLOOD2.1 %Normal1-5UnGuernsey Memorial HospitalComment on above: Performed By: #### [id number] ####[facility] [id number] [place] [address] MCUKII967 %NormalUnGuernsey Memorial HospitalComment on above: Performed By: #### [id number] ####[facility] [id number] [place] [address] USAHCO3 (Bld) [Moles/Vol]26.6 mmol/SUvjokd17.0-28.0UnGuernsey Memorial HospitalComment on above:Performed By: #### [id number] ####[facility] [id number] [place] [address] USAHemoglobin (Bld) [Mass/Vol]10.1 g/dLLow11.7-17.4UnGuernsey Memorial HospitalComment on above:Performed By: #### [id number] ####[facility] [id number] [place] [address] YUBPXM1JaryucGzxgolftqxCleveland Clinic Union HospitalComment on above:Performed By: #### [id number] ####[facility] [id number] [place] [address] USAMETHEMOGLOBIN/100 IN BLOOD1.1 %Normal0.0-1.5UnGuernsey Memorial HospitalComment on above:Performed By: #### [id number] ####[facility] RESPIRAT[facility] [id number] [place] [address] USAOxygen (Bld) [Partial pressure]86 mm[Hg]Exbokt54-229ZolrlwnkocGuernsey Memorial HospitalComment on above:Performed By: #### [id number] ####[facility] RESPIRAT[facility] [id number] [place] [address] USAOXYGEN SATURATION (%) IN ARTERIAL BLOOD97.9 %Normal 94.0-98.0UnGuernsey Memorial HospitalComment on above:Performed By: #### [id number] ####[facility] RESPIRAT[facility] [id number] [place] [address] [place] OXYGENATED HEMOGLOBIN IN BLOOD95.6 %High90.0-95.0UnGuernsey Memorial HospitalComment on above:Performed By: #### [id number] ####[facility] RESPIRAT[facility] [id number] [place] [address] USApH (Bld)7.36 [pH]Normal7.35-7.45 [facility] Hospital LimaComment on above:Performed By: #### [id number] ####[facility] RESPIR[facility] [id number] [place] [address] USASOURCE OF OXYGENNasal cannulaNormalUniversity Elyria Memorial HospitalComment on above: Performed By: #### [id number] ####[facility] RESP[facility] [id number] [place] [address] USABASIC METABOLIC PANELon 76-17-3354Dbluo gap [Moles/Vol]11 mmol/L Normal7-20UnGuernsey Memorial HospitalComment on above:Performed By: #### [id number] ####[facility] ([facility]ER)[address], [place] [address]Ibmevyh [Mass/Vol]8.3 mg/dLLow8.6-10.3UnGuernsey Memorial HospitalComment on above:Performed By: #### [id number] ####[facility] ([facility])[address] [place], [place] [address]Brzascum [Moles/Vol]102 mmol/YFtypph28-156GfvjkkfwrhGuernsey Memorial HospitalComment on above:Performed By: #### [id number] ####[facility] ([facility])[address] [place], [place] [address]ZS9 [Moles/Vol]28 mmol/LNormal 21-31UnGuernsey Memorial HospitalComment on above:Performed By: #### [id number] ####[facility] ([facility])[address], [place] [address]Rsiauhwcvx [Mass/Vol]1.13 mg/dLNormal0.70-1.30UnGuernsey Memorial HospitalComment on above:Performed By: #### [id number] ####[facility] ([facility])[address], [place] [address]LXVJGPMTSM FILTRATION RATE ML/MIN/1.73 SQ M.OQBPONTPH83.2 mL/min/1.73m*2Normal>60.0UnGuernsey Memorial HospitalComment on above: Result Comment: [facility]???s estimated glomerular filtration rate (eGFR) will no [...] potential consequences that do not disproportionately affect anyone group of individuals.Performed By: #### [id number] ####[facility] ([facility]))[address], [place] [address]Dllfqtl [Mass/Vol]166 mg/wMYmsa01-600RiqcessrrnGuernsey Memorial HospitalComment on above:Performed By: #### [id number] ####[facility] ([facility]))[address], [place] [address]Lxemkkxvm [Moles/Vol]4.3 mmol/L Normal3.5-5.1UnGuernsey Memorial HospitalComment on above:Performed By: #### [id number] ####[facility] ([facility]))[address] [place] [address] Sodium [Moles/Vol]137 mmol/AUgviad310-486JnjtlfivklGuernsey Memorial Hospital Comment on above:Performed By: #### [id number] ####[facility] ([facility]))[address], [place] [address]Duou nitrogen [Mass/Vol]24 mg/dLNormal7-25 [facility] LimaComment on above:Performed By: #### [id number] ####[facility] ([facility]))[address], [place] [address]NBMJ NITROGEN/CREATININE (MASS RATIO) IN SER/PLAS21.2NormalUnGuernsey Memorial HospitalComment on above:Performed By: #### [id number] ####[facility] ([facility]))[address], [place] [address]Jpkze gap [Moles/Vol]10 mmol/LNormal 7-20UnGuernsey Memorial HospitalComment on above:Performed By: #### [id number] ####[facility] ([facility]))[address], [place] [address]Dnsscdl [Mass/Vol]8.4 mg/dLLow8.6-10.3UnGuernsey Memorial HospitalComment on above:Performed By: #### [id number] ####[facility] ([facility]))[address], [place] [address]Iruhjyfk [Moles/Vol]107 mmol/LRybpem99-384WdelneegcuGuernsey Memorial HospitalComment on above:Performed By: #### [id number] ####[facility] ([facility]))[address], [place] [address]DP7 [Moles/Vol]28 mmol/LNormal 21-31UnGuernsey Memorial HospitalComment on above:Performed By: #### [id number] ####[facility] ([facility]))[address] [place], [place] [address]Qhfovdhzqv [Mass/Vol]1.16 mg/dLNormal0.70-1.30UnGuernsey Memorial HospitalComment on above:Performed By: #### [id number] ####[facility] ([facility]))[address] [place], [place] [address]DXIAPGOQFH FILTRATION RATE ML/MIN/1.73 SQ M.TCOQHOPOL13.1 mL/min/1.73m*2Normal>60.0UnGuernsey Memorial HospitalComment on above: Result Comment: [facility]???s estimated glomerular filtration rate (eGFR) will no [...] potential consequences that do not disproportionately affect anyone group of individuals.Performed By: #### [id number] ####[facility] ([facility]))[address] [place], [place] [address]Gdxeeuq [Mass/Vol]167 mg/tMNztv55-295MnuzibncorGuernsey Memorial HospitalComment on above:Performed By: #### [id number] ####[facility] ([facility]))[address] [place] [address]Hlidylhzu [Moles/Vol]4.2 mmol/L Normal3.5-5.1UnGuernsey Memorial HospitalComment on above:Performed By: #### [id number] ####[facility] ([facility]))[address] [place] [address] Sodium [Moles/Vol]141 mmol/GRxjqqu764-469AqlzunkbwmGuernsey Memorial Hospital Comment on above:Performed By: #### [id number] ####[facility] ([facility]))[address], [place] [address]Erps nitrogen [Mass/Vol]21 mg/dLNormal7-25 [facility] LimaComment on above:Performed By: #### [id number] ####[facility] ([facility]))[address] [place], [place] [address]QELS NITROGEN/CREATININE (MASS RATIO) IN SER/PLAS18.1NormalUnGuernsey Memorial HospitalComment on above:Performed By: #### [id number] ####[facility] ([facility]))[address] [place], [place] [address]RJQGUTW, IONIZEDon 31-05-1408GVAPWCU IONIZED (MMOL/L) IN BLOOD1.13 mmol/LLow1.15-1.33UnGuernsey Memorial HospitalComment on above:Performed By: #### [id number] ####[facility] RESPIR[facility] [id number] [place] [address] USACALCIUM IONIZED (MMOL/L) IN BLOOD1.26 mmol/L Normal1.15-1.33UnGuernsey Memorial HospitalComment on above:Performed By: #### CALCIUM, IONIZED ####[facility] RESPIR[facility] [id number] [place] [address] USACBCon 04-02-8058Xndntkfadbo distribution width (RBC) [Ratio]13.5 % Lvezch36.5-15.0UnGuernsey Memorial HospitalComment on above:Performed By: #### [id number] ####[facility] (BEAKER)[address] [place] [address] ERYTHROCYTE MEAN CORPUSCULAR HEMOGLOBIN CONCENTRATION (G/DL) BY VZEKKPHAP75.1 g/dVNmdebc25.0-35.0UnGuernsey Memorial HospitalComment on above:Performed By: #### [id number] ####[facility] ([facility]))[address] [place] [address]Qjzmkvfdea (Bld) [Volume fraction]26.7 %Low39.0-50.0UnGuernsey Memorial HospitalComment on above:Performed By: #### [id number] ####[facility] ([facility]))[address] [place] [address]Copngbgpat (Bld) [Mass/Vol]9.1 g/dLLow 13.0-17.0UnGuernsey Memorial HospitalComment on above:Performed By: #### [id number] ####[facility] ([facility]))[address] [place] [address]JLTBACGT PLATELET FRACTION %3.5 %Normal0.8-6.3UnGuernsey Memorial HospitalComment on above:Performed By: #### [id number] ####[facility] [place] [address]BBZ (RBC) [Entitic mass]30.3 haRmmcma50.0-33.0UnGuernsey Memorial HospitalComment on above:Performed By: #### [id number] ####[facility] [place] [address]WYL (RBC) [Entitic vol] 89.0 fVBtxpef22.0-98.0UnGuernsey Memorial HospitalComment on above: Performed By: #### [id number] ####[facility])[address] [place] [address]FRWTCNXKL (10*3/UL) IN BLOOD AUTOMATED [id number] 10*3/uLLow 150-400UnGuernsey Memorial HospitalComment on above:Performed By: #### [id number] ####[facility] ([facility]))[address] [address]TIL (Bld) [#/Vol]3.00 10*6/uLLow4.20-5.70UnGuernsey Memorial HospitalComment on above:Performed By: #### [id number] ####[facility] ([facility]))[address] [address]QPH (Bld) [#/Vol]15.49 10*3/uLHigh4.00-10.60UnGuernsey Memorial HospitalComment on above:Performed By: #### [id number] ####[facility] ([facility]))[address] [address]Erxuszkhgcf distribution width (RBC) [Ratio]13.2 %Ewdxfi71.5-15.0UnGuern[facility] Memorial Hospital Comment on above:Performed By: #### [id number] ####[facility] ([facility]))[address] [address]GJXTLOCXJGM MEAN CORPUSCULAR HEMOGLOBIN CONCENTRATION (G/DL) BY VTSVVTTIA20.6 g/cSGvwgzy96.0-35.0UnGuernsey Memorial HospitalComment on above:Performed By: #### [id number] ####[facility] ([facility]))[address] [address]Bucgevhjcc (Bld) [Volume fraction]28.6 %Low39.0-50.0UnGuernsey Memorial HospitalComment on above:Performed By: #### [id number] ####[facility] ([facility]))[address] [address] Hemoglobin (Bld) [Mass/Vol]9.6 g/dLLow13.0-17.0UnGuernsey Memorial HospitalComment on above:Performed By: #### [id number] ####[facility] ([facility]))[address] [place] [address]BIV (RBC) [Entitic mass]30.4 pgNormal 27.0-33.0UnGuernsey Memorial HospitalComment on above:Performed By: #### [id number] ####[facility] ([facility]))[address] [address]WUI (RBC) [Entitic vol]90.5 qVNcweve98.0-98.0UnGuernsey Memorial HospitalComment on above:Performed By: #### [id number] ####[facility] ([facility]))[address] [place] [place] [address]IVTNRNHKS (10*3/UL) IN BLOOD AUTOMATED TRASJ770 10*3/uLNormal 150-400UnGuernsey Memorial HospitalComment on above:Performed By: #### [id number] ####[facility] ([facility]))[address] [place] [address]ZKZ (Bld) [#/Vol]3.16 10*6/uLLow4.20-5.70UnGuernsey Memorial HospitalComment on above:Performed By: #### [id number] ####[facility] ([facility]))[address] [place] [address]WWT (Bld) [#/Vol]14.46 10*3/uLHigh4.00-10.60UnGuernsey Memorial HospitalComment on above:Performed By: #### [id number] ####[facility] ([facility] [place] [address]MTSNWVEne 08-17-2024 CONSULTNormalUniversity Elyria Memorial HospitalLACTIC ACID WITH 4 HOUR REFLEXon 05-54-4680BTPNOME (MMOL/L) IN SER/PLAS2.8 mmol/LCritically high0.5-2.2 [facility] LimaComment on above:Performed By: #### [id number] ####[facility] ([facility] [place] [place] [address]FUMCCR ACID, PLASMAon 48-51-3460FZTWCPT (MMOL/L) IN SER/PLAS2.6 mmol/LCritically high0.5-2.2 [facility] LimaComment on above:Result Comment: Previous result verified on 08/17/2024 0343 on specimen/case [id number] called with component Lactate blood venous for procedure Lactic acid with 4 hour reflex with value 2.8 mmol/L.Performed By: #### [id number] ####[facility] ([facility] [facility] [place], [place] [address]ISDSNIVDNrv 42-05-0988Ocqjjbhwy [Mass/Vol]1.9 mg/dL Normal1.9-2.7UnGuernsey Memorial HospitalComment on above:Performed By: #### [id number] ####[facility] ([facility] [facility] [place] [address] Magnesium [Mass/Vol]2.0 mg/dLNormal1.9-2.7Un[facility] Comment on above:Performed By: #### [id number] ####[facility] ([facility] [place], [place] [address]WRPLVATBYYjy 05-03-1142Dlbkbtspo [Mass/Vol]3.9 mg/dLNormal2.5-5.0UnGuernsey Memorial HospitalComment on above:Performed By: #### [id number] ####[facility] ([facility] [facility] [place] [address] Magnesium [Mass/Vol]3.4 mg/dLNormal2.5-5.0UnGuernsey Memorial Hospital Comment on above:Performed By: #### [id number] ####[facility] ([facility] [place], [place] [address]OEEQ GLUCOSE METER UNSOLICITED RESULTSon 08-17-2024 Glucose [Mass/Vol]187 mg/uWIetv65-179LgbcpytajrGuernsey Memorial HospitalComment on above:Order Comment: Waived Testing in the ED is performed under the ED CLIA certificate #[id number].Result Comment: [id number] By: #### [id number] ####[facility] ([facility])[address] [place], [place] [address]Xrynzzf [Mass/Vol]169 mg/kORhgd43-612QskdafqxglGuernsey Memorial HospitalComment on above:Order Comment: Waived Testing in the ED is performed under the ED CLIA certificate #[id number].Result Comment: [id number] By: #### [id number] ####[facility] ([facility])[address] [place], [place] [address]Ycjfvsl [Mass/Vol]150 mg/jREmjm84-837NknddmzicgGuernsey Memorial HospitalComment on above:Order Comment: Waived Testing in the ED is performed under the ED CLIA certificate #[id number].Result Comment: [id number] By: #### [id number] ####[facility] ([facility])[address] [place], [place] [address]Chlqdst [Mass/Vol]165 mg/lJNhsm23-875VkfvlnuglpGuernsey Memorial HospitalComment on above:Order Comment: Waived Testing in the ED is performed under the ED CLIA certificate #[id number].Result Comment: [id number] By: #### [id number] ####[facility] ([facility])[address] [place], [place] [address]Jjdzotl [Mass/Vol]157 mg/dLTmhb54-204XnyktcsdhkGuernsey Memorial HospitalComment on above:Order Comment: Waived Testing in the ED is performed under the ED CLIA certificate #[id number].Result Comment: asexyyv0Hdkgclsse By: #### [id number] ####[facility] ([facility])[address] [place], [place] [address]Bhctnqy [Mass/Vol]148 mg/mMArma40-651BpbpbkeiiqGuernsey Memorial HospitalComment on above:Order Comment: Waived Testing in the ED is performed under the ED CLIA certificate #[id number].Result Comment: qiqwvqb9Kmvxdjbrf By: #### [id number] ####[facility] ([facility])[address] [place], [place] [address]Dyjnhsj [Mass/Vol]154 mg/yTSkaj46-243Knbudbtujl of Escalante Medical CenterComment on above:Order Comment: Waived Testing in the ED is performed under the ED CLIA certificate #[id number].Result Comment: efscmtr4Yqrwclusk By: #### [id number] ####[facility] [facility] ([facility]AKER)[address] [place], [place] [address]Otehctz [Mass/Vol]169 mg/lJOyfw52-016IgmjbxytfjGuernsey Memorial HospitalComment on above:Order Comment: Waived Testing in the ED is performed under the ED CLIA certificate #[id number].Result Comment: nljinlx8Sidqwedip By: #### [id number] ####[facility] (BEAKER)[address], [place] [address]Czowkhw [Mass/Vol]159 mg/dRMyig35-430EhyuftjzqfGuernsey Memorial HospitalComment on above:Order Comment: Waived Testing in the ED is performed under the ED CLIA certificate #[id number].Result Comment: ametxoc7Gaimolwwo By: #### [id number] ####[facility] ([facility]AKER)[address], [place] [address]Ugzgnhb [Mass/Vol]167 mg/rPJpyc03-699IavxdsnewpGuernsey Memorial HospitalComment on above:Order Comment: Waived Testing in the ED is performed under the ED CLIA certificate #[id number].Result Comment: tohpprc5Azdrjazzj By: #### [id number] ####[facility] (BEAKER)[address], [place] [address]Ipkhmqd [Mass/Vol]185 mg/qPQdoy57-086UsulnrdjlvGuernsey Memorial HospitalComment on above:Order Comment: Waived Testing in the ED is performed under the ED CLIA certificate #[id number].Result Comment: puehghe5Mwpuygjln By: #### [id number] ####[facility] (BEAKER)[address], [place] [address]Efubkvz [Mass/Vol]203 mg/dQVfen57-641DnsmlwsofhGuernsey Memorial HospitalComment on above:Order Comment: Waived Testing in the ED is performed under the ED CLIA certificate #[id number].Result Comment: vwrsvqd3Lkisxvaps By: #### [id number] ####[facility] (BEAKER)[address] [place], [place] [address]HMTPTTTHK, WHOLE BLOODon 22-20-8730Kifmqctqr [Moles/Vol]4.2 mmol/LNormal3.5-5.1UnGuernsey Memorial HospitalComment on above:Performed By: #### POTASSIUM, WHOLE BLOOD ####[facility] RESPIRATORY [id number] [place] [address] USAPROTIME-INRon 79-41-0233RFC IN PPP BY COAGULATION ASSAY1.33Lqmi7.90-1.10UnGuernsey Memorial HospitalComment on above:Order Comment: On arrival to SICUResult Comment: ACCCP RECOMMENDED INR FOR WARFARIN THERAPY CONDITION INRPROPHYLAXIS OF VENOUS THROMBOSIS 2-3(HIGH-RISK SURGERY)TREATMENT OF VENOUS THROMBOSIS 2-3TREATMENT OF PULMONARY EMBOLISM 2-3PREVENTION OF SYSTEMIC EMBOLISM: 2-3 ACUTE MYOCARDIAL INFARCTION TISSUE HEART VALVES VALVULAR HEART DISEASE ATRIAL FIBRILLATION RECURRENT SYSTEMIC EMBOLISMMECHANICAL HEART VALVE 2.5-3.5 FROM: ORAL ANTICOAGULANTS. MECHANISM OF ACTION, CLINICAL EFFECTIVENESS, AND OPTIMAL THERAPE UTIC RANGE. CHEST 1995;108:231S-246S.Performed By: #### [id number] ####[facility] (BEAKER)[address] [place], [place] [address]KXZQSSLPDHL TIME (PT) IN PPP BY COAGULATION ASSAY14.7 CjmweydIycmrd02.3-14.8UnGuernsey Memorial HospitalComment on above:Order Comment: On arrival to SICUPerformed By: #### [id number] ####[facility] ([facility]ER)[address] [facility] [place] [address]BXFZSV, WHOLE BLOODon 85-06-2416SOVKLS, WHOLE KZXNK878Qbbavw893-620ZznjlvtcmjGuernsey Memorial HospitalComment on above:Performed By: #### SODIUM, WHOLE BLOOD ####[facility] RESPIRATORY [id number] [place] [address] USAVENOUS BLOOD GAS WITH CO-OXIMETRYon 98-13-6065Bwhi excess Calc (BldV) [Moles/Vol]1.2 mmol/LNormal [facility] Hospital LimaComment on above:Performed By: #### [id number] ####[facility] RESPIRATORY [id number] [place] [address] [facility] CARBOXYHEMOGLOBIN/HEMOGLOBIN TOTAL % IN BLOOD1.2 %NormalUnGuernsey Memorial HospitalComment on above:Performed By: #### [id number] ####[facility] RESPIRATORY [id number] [place] [address] USACO2 (BldV) [Partial pressure]51 mm[Hg]Amvv99-86XdzbcglhwoGuernsey Memorial HospitalComment on above:Performed By: #### [id number] ####[facility] RESPIRATORY [id number] [place] [address] [place] HCO3 (Bld) [Moles/Vol]27.5 mmol/LNormalUnGuernsey Memorial Hospital Comment on above:Performed By: #### [id number] ####[facility] RESPIRATORY [id number] [place] [address] USAHemoglobin (Bld) [Mass/Vol]10.0 g/dLNormal [facility] Hospital LimaComment on above:Performed By: #### [id number] ####[facility] RESPIRATORY [id number] [place] [address] [place] METHEMOGLOBIN/100 IN BLOOD0.8 %Normal0.0-1.5UnGuernsey Memorial Hospital Comment on above:Performed By: #### [id number] ####[facility] RESPIRATORY [id number] [place] [address] USAOxygen (BldV) [Partial pressure]37 mm[Hg]Normal 35-45UnGuernsey Memorial HospitalComment on above:Performed By: #### [id number] ####[facility] RESPIRATORY [id number] [place] [address] USAOXYGEN SATURATION (%) IN VENOUS BLOOD62.8 %Low65.0-75.0UnGuernsey Memorial HospitalComment on above:Performed By: #### [id number] ####[facility] RESPIRATORY [id number] [place] [address] USAOXYGENATED HEMOGLOBIN IN BLOOD61.5 %NormalUnGuernsey Memorial HospitalComment on above:Performed By: #### [id number] ####[facility] RESPIRATORY [id number] [place] [address] USAPH OF VENOUS BLOOD7.34Hexhws1.31-7.41UnGuernsey Memorial HospitalComment on above:Performed By: #### [id number] ####[facility] RESPIRATORY [id number] [place] [address] USAVENOUS BLOOD GAS WITH IONIZED CALCIUMon 28-12-1105Vbat excess Calc (BldV) [Moles/Vol]2.5 mmol/LNormalUnGuernsey Memorial HospitalComment on above:Performed By: #### [id number] ####[facility] RESPIRATORY [id number] [place] [address] USACALCIUM IONIZED (MMOL/L) IN BLOOD 1.28 mmol/LNormal1.15-1.33UnGuernsey Memorial HospitalComment on above: Performed By: #### [id number] ####[facility] RESPIRATORY [id number] [place] [address] USACO2 (BldV) [Partial pressure]53 mm[Hg]Eiku92-65GlywcqwubvGuernsey Memorial HospitalComment on above:Performed By: #### [id number] ####[facility] RESPIRATORY [id number] [place] [address] USAHCO3 (Bld) [Moles/Vol]29.3 mmol/L NormalKindred Hospital LimaComment on above:Performed By: #### [id number] ####[facility] RESPIRATORY [id number] [place] [address] USAOxygen (BldV) [Partial pressure]40 mm[Hg]Rkskco49-61TcrtwprarzGuernsey Memorial HospitalComment on above:Performed By: #### [id number] ####[facility] RESPIRATORY [id number] [place] [address] USAOXYGEN SATURATION (%) IN VENOUS BLOOD65.7 %Vfzxno17.0-75.0UnGuernsey Memorial HospitalComment on above: Performed By: #### [id number] ####[facility] RESPIRATORY [id number] [place] [address] USAPH OF VENOUS BLOOD7.45Nqqqci2.31-7.41UnGuernsey Memorial HospitalComment on above:Performed By: #### [id number] ####[facility] RESPIRATORY [id number] [place] [address] WID46mo 31-47-510574TuyayyFqdjytwmta of [facility] Medical CenterANESon 39-89-2919ZOOEHnlhttEcktnaiyyz of [place] Medical CenterANTI-XA (HEPARIN LEVEL)on 03-91-9461IIGZTJJ UNFRACTIONATED (U/ML) IN PPP BY CHROMOGENIC METHOD0.27 IU/mLLow0.3-0.7UnGuernsey Memorial Hospital Comment on above:Order Comment: Check anti-Xa level every 6 hours while on heparin infusion, or per protocol.Result Comment: Rivaroxaban and Apixaban will interfere with the anti Xa assay used to monitor UFH and LMWH.Performed By: #### [id number] ####[facility] (BEAKER)[address] [place], [place] [address]BVDPzd 96-70-2703AZUBIEXWO PARTIAL THROMBOPLASTIN TIME IN PPP BY COAGULATION ASSAY32.6 ZkfcgmjXspsvx65.0-35.0UnGuernsey Memorial HospitalComment on above:Order Comment: [facility]Result Comment: Clinical significance of the APTT is questionable in the presence of heparin.Performed By: #### [id number] ####[facility] (BEAKER)[address] [place], [place] [address]QYEJOGMRC PARTIAL THROMBOPLASTIN TIME IN PPP BY COAGULATION ASSAY48.1 OjxnhdyIkoi45.0-35.0 [facility] Hospital LimaComment on above:Result Comment: Clinical significance of the APTT is questionable in the presence of heparin.Performed By: #### [id number] ####[facility] LAB (BEAKER)[address] [place] [address] ARTERIAL BLOOD GAS WITH CO-OXIMETRYon 98-43-0325Sxav excess Calc (Bld) [Moles/Vol]0.4 mmol/LNormal-2.0-3.0UnGuernsey Memorial HospitalComment on above:Performed By: #### [id number] ####[facility] RESPIRATORY [id number] [place] [address] USACARBOXYHEMOGLOBIN/HEMOGLOBIN TOTAL % IN BLOOD1.9 %Normal 0.0-3.0UnGuernsey Memorial HospitalComment on above:Performed By: #### [id number] ####[facility] RESPIRATORY [id number] [place] [address] USACO2 (Bld) [Partial pressure]56 mm[Hg]Critically tbdj59-81NvsxcmhvffGuernsey Memorial HospitalComment on above:Performed By: #### [id number] ####[facility] RESPIRATORY [id number] [place] [address] USADEOXYGENATED HEMOGLOBIN IN BLOOD3.2 %Normal1-5UnGuernsey Memorial HospitalComment on above:Performed By: #### [id number] ####[facility] RESPIRATORY [id number] [place] [address] [place] HCO3 (Bld) [Moles/Vol]27.6 mmol/VOtqxjs28.0-28.0UnGuernsey Memorial HospitalComment on above:Performed By: #### [id number] ####[facility] RESPIRATORY [id number] [place] [address] USAHemoglobin (Bld) [Mass/Vol]10.7 g/dLLow11.7-17.4UnGuernsey Memorial HospitalComment on above:Performed By: #### [id number] ####[facility] RESPIRATORY [id number] [place] [address] SQEIAP8DplbaxTdoherrtoaCleveland Clinic Union HospitalComment on above:Performed By: #### [id number] ####[facility] RESPIRATORY [id number] [place] [address] [place] METHEMOGLOBIN/100 IN BLOOD0.6 %Normal0.0-1.5UnGuernsey Memorial Hospital Comment on above:Performed By: #### [id number] ####[facility] RESPIRATORY [id number] [place] [address] USAOxygen (Bld) [Partial pressure]80 mm[Hg]Low 83-100UnGuernsey Memorial HospitalComment on above:Performed By: #### [id number] ####[facility] RESPIRATORY [id number] [address] AVROG[place] [address] USAOXYGEN SATURATION (%) IN ARTERIAL BLOOD96.7 %Fqkpxe39.0-98.0UnGuernsey Memorial HospitalComment on above:Performed By: #### [id number] ####[facility] RESPIRATORY [id number] [address] AVROGER [place] [address] USAOXYGENATED HEMOGLOBIN IN BLOOD94.3 %Mxddft60.0-95.0UnGuernsey Memorial HospitalComment on above:Performed By: #### [id number] ####[facility] RESPIRATORY [id number] [place] [address] USApH (Bld)7.30 [pH]Low7.35-7.45UnGuernsey Memorial HospitalComment on above:Performed By: #### [id number] ####[facility] RESPIRATORY [id number] [address] AVROGER [place] [address] USASOURCE OF OXYGENNasal cannulaNormalUniversity Elyria Memorial HospitalComment on above:Performed By: #### [id number] ####[facility] RESPIRATORY [id number] [place] [address] USAARTERIAL BLOOD GAS WITH IONIZED CALCIUMon 22-67-1209Vats excess Calc (Bld) [Moles/Vol]0.3 mmol/LNormal-2.0-3.0 [facility] LimaComment on above:Performed By: #### [id number] ####[facility] RESPIRATORY [id number] [address] [address] USACALCIUM IONIZED (MMOL/L) IN BLOOD1.30 mmol/LNormal1.15-1.33UnGuernsey Memorial HospitalComment on above:Performed By: #### [id number] ####[facility] RESPIRATORY [id number] [place] [address] USACO2 (Bld) [Partial pressure]48 mm[Hg]Ucxsql64-29AdzesjghqqGuernsey Memorial HospitalComment on above:Performed By: #### [id number] ####[facility] RESPIRATORY [id number] [place] [address] USAHCO3 (Bld) [Moles/Vol]26.5 mmol/NEviokp46.0-28.0UnGuernsey Memorial HospitalComment on above:Performed By: #### [id number] ####[facility] RESPIRATORY BTOCEUS5176 [place] [address] CLSTJI4KfekmjTuhascabgrOhioHealth Shelby HospitalComment on above:Performed By: #### [id number] ####[facility] RESPIRATORY [id number] [place] [address] USAOxygen (Bld) [Partial pressure]70 mm[Hg]Gbv26-346UfkasuykemGuernsey Memorial HospitalComment on above:Performed By: #### [id number] ####[facility] RESPIRATORY JHYSNON5134 [place] [address] [place] OXYGEN SATURATION (%) IN ARTERIAL BLOOD95.0 %Denawn12.0-98.0UnGuernsey Memorial HospitalComment on above:Performed By: #### [id number] ####[facility] RESPIRATORY [id number] [place] [address] USApH (Bld)7.35 [pH]Normal7.35-7.45 [facility] LimaComment on above:Performed By: #### [id number] ####[facility] RESPIRATORY [id number] [place] [address] USASOURCE OF OXYGENNasal cannulaNormalUniUniversity Hospitals Geneva Medical CenterComment on above: Performed By: #### [id number] ####[facility] RESPIRATORY [id number] [place] [address] USABASIC METABOLIC PANELon 40-78-9467Tklel gap [Moles/Vol]10 mmol/L Normal7-20UnGuernsey Memorial HospitalComment on above:Performed By: #### [id number] ####[facility] ([facility] [address]Gkiznrh [Mass/Vol]8.5 mg/dLLow8.6-10.3UnGuernsey Memorial HospitalComment on above:Performed By: #### [id number] ####[facility] ([facility] [place] [place] [address]Ghyfpiup [Moles/Vol]108 mmol/QYtpy50-228JpqifkylpaGuernsey Memorial HospitalComment on above:Performed By: #### [id number] ####[facility] ([facility] [place] [place] [address] [Moles/Vol]27 mmol/VMsyxxh59-76 [facility] LimaComment on above:Performed By: #### [id number] ####[facility] ([facility] [place] [place] [address]Pwwmhbovxc [Mass/Vol]1.08 mg/dLNormal0.70-1.30UnGuernsey Memorial HospitalComment on above:Performed By: #### [id number] ####[facility] ([facility] [place], [place] [address]QOSJAGZCAI FILTRATION RATE ML/MIN/1.73 SQ M.HXKPIXBOU97.0 mL/min/1.73m*2Normal>60.0UnGuernsey Memorial HospitalComment on above: Result Comment: The [facility]???s estimated glomerular filtration rate (eGFR) will no [...] potential consequences that do not disproportionately affect anyone group of individuals.Performed By: #### [id number] ####[facility] (BEAKER)[address] [place], [place] [address]Aruxkrz [Mass/Vol]179 mg/xJLxmt11-859UabihbivisGuernsey Memorial HospitalComment on above:Performed By: #### [id number] ####[facility] ([facility] [place], [place] [address]Fbujyeshd [Moles/Vol]4.4 mmol/L Normal3.5-5.1UnGuernsey Memorial HospitalComment on above:Performed By: #### [id number] ####[facility] ([facility] [place] [address] Sodium [Moles/Vol]141 mmol/UTjcvjm849-564YxoqtzlppcGuernsey Memorial Hospital Comment on above:Performed By: #### [id number] ####[facility] ([facility] [place], [place] [address]Lirr nitrogen [Mass/Vol]18 mg/dLNormal7-25 [facility] LimaComment on above:Performed By: #### [id number] ####[facility] ([facility], [place] [address]ZDRX NITROGEN/CREATININE (MASS RATIO) IN SER/PLAS16.7NormalUniversCleveland Clinic Union HospitalComment on above:Performed By: #### [id number] ####[facility] ([facility] [place], [place] [address]Ffbuf gap [Moles/Vol]10 mmol/LNormal 7-20UnGuernsey Memorial HospitalComment on above:Order Comment: On arrival to SICUPerformed By: #### [id number] ####[facility], [place] [address]Osbihiw [Mass/Vol]9.1 mg/dLNormal8.6-10.3UnGuernsey Memorial HospitalComment on above:Order Comment: On arrival to SICU Performed By: #### [id number] ####[facility] (BEAKER)[address], [place] [address]Tyzwvvou [Moles/Vol]107 mmol/TSfsrqk29-094JsycjippadGuernsey Memorial HospitalComment on above:Order Comment: On arrival to SICUPerformed By: #### [id number] ####[facility] ([facility] [address]XF9 [Moles/Vol] 28 mmol/IIloyke56-52FucpeiewmkGuernsey Memorial HospitalComment on above:Order Comment: On arrival to SICUPerformed By: #### LAB15 ####[facility] ([facility] [place] [address]Dwvdtiixij [Mass/Vol]1.00 mg/dLNormal 0.70-1.30UnGuernsey Memorial HospitalComment on above:Order Comment: On arrival to SICUPerformed By: #### LAB15 ####[facility] ([facility] [place] [address]TICQDYNQYP FILTRATION RATE ML/MIN/1.73 SQ M.GNMOWQRBK82.0 mL/min/1.73m*2Normal>60.0UnGuernsey Memorial Hospital Comment on above:Order Comment: On arrival to SICUResult Comment: [facility]???s estimated glomerular filtration rate (eGFR) will no [...] potential consequences that do not disproportionately affect anyone group of individuals. Performed By: #### [id number] ####[facility] ([facility] [place] [address]Wbwnyzz [Mass/Vol]158 mg/yKWnto80-918TmtgfobdvbGuernsey Memorial HospitalComment on above:Order Comment: On arrival to SICUPerformed By: #### LAB15 ####[facility] ([facility] [place], [place] [address]Ikquudrsk [Moles/Vol]4.2 mmol/LNormal3.5-5.1UnGuernsey Memorial HospitalComment on above:Order Comment: On arrival to SICUPerformed By: #### LAB15 ####[facility] LAB (BEAKER)[address] [place] [address]Xnsifd [Moles/Vol]141 mmol/EYvgnja177-254MzzwwgcvjlGuernsey Memorial HospitalComment on above:Order Comment: On arrival to SICUPerformed By: #### LAB15 ####[facility] ([facility] [place], [place] [address]Rfzi nitrogen [Mass/Vol]16 mg/dLNormal 7-25UnGuernsey Memorial HospitalComment on above:Order Comment: On arrival to SICUPerformed By: #### LAB15 ####[facility] ([facility] [place], [place] [address]ELMW NITROGEN/CREATININE (MASS RATIO) IN SER/PLAS 16.0NormalUniversCleveland Clinic Union HospitalComment on above:Order Comment: On arrival to SICUPerformed By: #### LAB15 ####[facility] ([facility] [place], [place] [address]Gnrqd gap [Moles/Vol]8 mmol/LNormal7-20UnGuernsey Memorial HospitalComment on above:Performed By: #### LAB15 ####[facility] ([facility])[address] [place], [place] [address]Xqvwgwi [Mass/Vol]8.7 mg/dLNormal8.6-10.3UnGuernsey Memorial HospitalComment on above:Performed By: #### LAB15 ####[facility] LAB (BEAKER)[address] [place] [address] Chloride [Moles/Vol]104 mmol/LQnntfq42-344GvrbutyesxGuernsey Memorial Hospital Comment on above:Performed By: #### LAB15 ####[facility] ([facility] [place], [place] [address]JN6 [Moles/Vol]29 mmol/ROesdlv22-84ExslkbrchzGuernsey Memorial HospitalComment on above:Performed By: #### LAB15 ####[facility] ([facility] [place] [address]Wjhweqxycq [Mass/Vol]1.01 mg/dL Normal0.70-1.30UnGuernsey Memorial HospitalComment on above:Performed By: #### LAB15 ####[facility] ([facility] [place] [address] GLOMERULAR FILTRATION RATE ML/MIN/1.73 SQ M.CATHNFCLC48.0 mL/min/1.73m*2Normal >60.0UnGuernsey Memorial HospitalComment on above:Result Comment: [facility]???s estimated glomerular filtration rate (eG FR) will no longer include consideration of race [...] potential consequences that do not disproportionately affect anyone group of individuals. Performed By: #### LAB15 ####[facility] ([facility] [place], [place] [address]Ejrfyua [Mass/Vol]96 mg/yFVuzxyb62-538UnvylrogjlGuernsey Memorial HospitalComment on above:Performed By: #### LAB15 ####[facility] ([facility] MARIFERSURGICAL SPECIAL[facility] CENTER AT COORDINATED [place]AudreyR[place], [place] [address]Hutgmosjl [Moles/Vol]4.3 mmol/LNormal 3.5-5.1UnGuernsey Memorial HospitalComment on above:Performed By: #### LAB15 ####[facility] ([facility] CAICEDOSUR[facility] [place]Aud[place] [address]Kqagdx [Moles/Vol]137 mmol/KRwyyxb567-205NrccogqxuuGuernsey Memorial HospitalComment on above:Performed By: #### LAB15 ####[facility] ([facility] [place] [address]Pjmz nitrogen [Mass/Vol]15 mg/dLNormal7-25UnGuernsey Memorial HospitalComment on above:Performed By: #### LAB15 ####[facility] ([facility] [place] [address]SJIB NITROGEN/CREATININE (MASS RATIO) IN SER/PLAS14.9NormalUniversCleveland Clinic Union HospitalComment on above: Performed By: #### [id number] ####[facility] ([facility] [place] [address]QLRGFRH, IONIZEDon 61-43-4096CFDOWRY IONIZED (MMOL/L) IN BLOOD1.34 mmol/LHigh1.15-1.33UnGuernsey Memorial HospitalComment on above:Performed By: #### CALCIUM, IONIZED ####[facility] RESPIRATORY [id number] [place] [address] USACBCon 15-37-3699Bawsbecrhvp distribution width (RBC) [Ratio]12.9 % Mehzxy78.5-15.0UnGuernsey Memorial HospitalComment on above:Performed By: #### [id number] ####[facility] ([facility] [place] [address] ERYTHROCYTE MEAN CORPUSCULAR HEMOGLOBIN CONCENTRATION (G/DL) BY VREGMRGKX33.4 g/xGPvrdis24.0-35.0UnGuernsey Memorial HospitalComment on above:Performed By: #### [id number] ####[facility] ([facility], [place] [address]Yjyiaohnmo (Bld) [Volume fraction]30.5 %Low39.0-50.0UnGuernsey Memorial HospitalComment on above:Performed By: #### [id number] ####[facility] ([facility], [place] [address]Apvjuperki (Bld) [Mass/Vol]10.2 g/dL Low13.0-17.0UnGuernsey Memorial HospitalComment on above:Performed By: #### [id number] ####[facility] [place] [address]FGJ (RBC) [Entitic mass]30.1 zmSztjwv58.0-33.0UnGuernsey Memorial Hospital Comment on above:Performed By: #### [id number] ####[facility] ([facility] [address]YUT (RBC) [Entitic vol]90.0 hZJtyewh89.0-98.0 [facility]red Hospital LimaComment on above:Performed By: #### [id number] ####[facility] ([facility] [address]SYFNWKGFV (10*3/UL) IN BLOOD AUTOMATED [id number] 10*3/yIHdkitb941-148NabxgfjxaqGuernsey Memorial HospitalComment on above:Performed By: #### [id number] ####[facility] ([facility] [place] [address]HRF (Bld) [#/Vol]3.39 10*6/uLLow 4.20-5.70UnGuernsey Memorial HospitalComment on above:Performed By: #### [id number] ####[facility] ([facility] [place] [address]WTE (Bld) [#/Vol]14.36 10*3/uLHigh4.00-10.60UnGuernsey Memorial HospitalComment on above:Performed By: #### [id number] ####[facility] ([facility] [address]Cpuxdxhatiw distribution width (RBC) [Ratio]12.8 %Normal 11.5-15.0UnGuernsey Memorial HospitalComment on above:Order Comment: [facility]Performed By: #### [id number] ####[facility] ([facility] [address]CVVDURLFASC MEAN CORPUSCULAR HEMOGLOBIN CONCENTRATION (G/DL) BY LXKAVULCH09.7 g/iUWjrqat80.0-35.0UnGuernsey Memorial HospitalComment on above:Order Comment: On arrival to SICUPerformed By: #### [id number] ####[facility] ([facility] [place] [address] Hematocrit (Bld) [Volume fraction]29.7 %Low39.0-50.0UnGuernsey Memorial HospitalComment on above:Order Comment: On arrival to SICUPerformed By: #### [id number] ####[facility] ([facility] [place] [address] Hemoglobin (Bld) [Mass/Vol]10.3 g/dLLow13.0-17.0UnGuernsey Memorial HospitalComment on above:Order Comment: On arrival to SICUPerformed By: #### [id number] ####[facility] ([facility] [place] [address]DNV (RBC) [Entitic mass]30.2 coJrovkl67.0-33.0UnGuernsey Memorial HospitalComment on above:Order Comment: On arrival to SICUPerformed By: #### [id number] ####[facility] ([facility] [place] [address]NJG (RBC) [Entitic vol] 87.1 zFYnoxny82.0-98.0UnGuernsey Memorial HospitalComment on above:Order Comment: On arrival to SICUPerformed By: #### [id number] ####[facility] ([facility] [place] [address]JDWQKXXPG (10*3/UL) IN BLOOD AUTOMATED [id number] 10*3/cLRqojrw538-431MxzkfvgnwoGuernsey Memorial HospitalComment on above:Order Comment: On arrival to SICUPerformed By: #### [id number] ####[facility] ([facility] [address]AMY (Bld) [#/Vol]3.41 10*6/uLLow4.20-5.70UnGuernsey Memorial HospitalComment on above:Order Comment: On arrival to SICUPerformed By: #### [id number] ####[facility] ([facility])[address], [place] [address]RVH (Bld) [#/Vol]12.07 10*3/uLHigh 4.00-10.60UnGuernsey Memorial HospitalComment on above:Order Comment: [facility]Performed By: #### [id number] ####[facility] ([facility], [place] [address]Tgfuixmohjk distribution width (RBC) [Ratio]12.8 % Zoxyrj61.5-15.0UnGuernsey Memorial HospitalComment on above:Performed By: #### [id number] ####[facility] ([facility] [place] [address] ERYTHROCYTE MEAN CORPUSCULAR HEMOGLOBIN CONCENTRATION (G/DL) BY EULQIQLJT34.6 g/mBSvoxkr20.0-35.0UnGuernsey Memorial HospitalComment on above:Performed By: #### [id number] ####[facility] ([facility]))[address] [place], [place] [address]Doxegnmjny (Bld) [Volume fraction]45.4 %Wlbojy44.0-50.0UnGuernsey Memorial HospitalComment on above:Performed By: #### [id number] ####[facility] ([facility]ER)[address] [place], [place] [address]Kwplrndorp (Bld) [Mass/Vol]15.7 g/dL Vguqss37.0-17.0UnGuernsey Memorial HospitalComment on above:Performed By: #### [id number] ####[facility] ([facility])[address] [place], [place] [address]GGK (RBC) [Entitic mass]30.3 chEjhclo22.0-33.0UnGuernsey Memorial Hospital Comment on above:Performed By: #### [id number] ####[facility] ([facility])[address] [place], [place] [address]LQV (RBC) [Entitic vol]87.6 zOMvyluy44.0-98.0 [facility] LimaComment on above:Performed By: #### [id number] ####[facility] ([facility] [address]HPWSUWDJG (10*3/UL) IN BLOOD AUTOMATED [id number] 10*3/rWWjbkyn818-046QmhusxigotGuernsey Memorial HospitalComment on above:Performed By: #### [id number] ####[facility] ([facility]))[address] [address]XLX (Bld) [#/Vol]5.18 10*6/uLNormal 4.20-5.70UnGuernsey Memorial HospitalComment on above:Performed By: #### [id number] ####[facility] ([facility]))[address] [address]OHP (Bld) [#/Vol]4.36 10*3/uLNormal4.00-10.60UnGuernsey Memorial HospitalComment on above:Performed By: #### [id number] ####[facility] ([facility]))[address] [place] [address]IG-FOSUFPPHas 53-42-4621TCRQDIVXRYXZAQWWK/HEMOGLOBIN TOTAL % IN BLOOD2.0 %NormalUnGuernsey Memorial HospitalComment on above:Performed By: #### [id number] ####[facility] RESPIRATORY [id number] [place] [address] USAHemoglobin (Bld) [Mass/Vol]10.8 g/dLNormalUniUniversity Hospitals Geneva Medical CenterComment on above:Performed By: #### [id number] ####[facility] RESPIRATORY [id number] [place] [address] USAMETHEMOGLOBIN/100 IN BLOOD0.0 % Normal0.0-1.5UnGuernsey Memorial HospitalComment on above:Performed By: #### [id number] ####[facility] RESPIRATORY [id number] [place] [address] [place] Oxygen saturation in Blood55.4 %NormalUnGuernsey Memorial HospitalComment on above:Performed By: #### [id number] ####[facility] RESPIRATORY [id number] [place] [address] USAOXYGENATED HEMOGLOBIN IN BLOOD54.3 %NormalUnGuernsey Memorial HospitalComment on above:Performed By: #### [id number] ####[facility] RESPIRATORY [id number] [place] [address] USAEXTEM Con 08-16-2024 EXTEM C A1056 bkPaxazw95-31YqdhtlemdyGuernsey Memorial HospitalComment on above: Performed By: #### EXTEM C ####[facility] RESPIRATORY [id number] [place] [address] USAEXTEM C A2062 nwRehgtd95-95LwilmjdwzvGuernsey Memorial Hospital Comment on above:Performed By: #### EXTEM C ####[facility] RESPIRATORY [id number] [place] [address] USAEXTEM C A547 dfGktyij64-43DqkbjmgbygGuernsey Memorial HospitalComment on above:Performed By: #### EXTEM C ####[facility] RESPIRATORY [id number] [place] [address] USAEXTEM C CT66 qHhaeve05-11VaiclhzgtiGuernsey Memorial HospitalComment on above:Performed By: #### EXTEM C ####[facility] RESPIRATORY [id number] [place] [address] USAEXTEM C ML0 %Normal0-6 [facility] LimaComment on above:Result Comment: NM^Preliminary ResultPerformed By: #### EXTEM C ####[facility] RESPIRATORY [id number] [place] [address] USAEXTEM C A1044 zlVcj28-91XsnuvecmjqGuernsey Memorial HospitalComment on above:Performed By: #### EXTEM C ####[facility] RESPIRATORY [id number] [place] [address] USAEXTEM C A2051 spOst12-51TndfvnfwhnGuernsey Memorial HospitalComment on above:Performed By: #### EXTEM C ####[facility] RESPIRATORY [id number] [place] [address] USAEXTEM C A534 mmNormal 33-52UnGuernsey Memorial HospitalComment on above:Performed By: #### EXTEM C ####[facility] RESPIRATORY [id number] [place] [address] USAEXTEM C CT72 vEwjztf61-48AbytvoxnopGuernsey Memorial HospitalComment on above:Performed By: #### EXTEM C ####[facility] RESPIRATORY [id number] [place] [address] USAEXTEM C ML0 %Normal0-6UnGuernsey Memorial HospitalComment on above: Result Comment: NM^Preliminary ResultPerformed By: #### EXTEM C ####[facility] RESPIRATORY [id number] [place] [address] USAEXTEM C A1055 mmNormal 45-62UnGuernsey Memorial HospitalComment on above:Performed By: #### EXTEM C ####[facility] RESPIRATORY [id number] [place] [address] USAEXTEM C A2062 pxBdrbgk33-37AmmhqjhtlgGuernsey Memorial HospitalComment on above: Performed By: #### EXTEM C ####[facility] RESPIRATORY [id number] [place] [address] USAEXTEM C A544 mtUmikum91-84GsrrqsdianGuernsey Memorial Hospital Comment on above:Performed By: #### EXTEM C ####[facility] RESPIRATORY [id number] [place] [address] USAEXTEM C CT54 bOnwdbo07-55WesfzgpiitGuernsey Memorial HospitalComment on above:Performed By: #### EXTEM C ####[facility] RESPIRATORY [id number] [place] [address] USAEXTEM C MCF63 hkJnfyga09-30 [facility] LimaComment on above:Performed By: #### EXTEM C ####[facility] RESPIRATORY [id number] [place] [address] USAEXTEM C ML0 % Normal0-6UnGuernsey Memorial HospitalComment on above:Result Comment: NM^Preliminary ResultPerformed By: #### EXTEM C ####[facility] RESPIRATORY [id number] [place] [address] USAFIBRINOGENon 39-38-2536Hlesmudlk [Mass/Vol]189 mg/qSSahdat602-748AdgynmgaerGuernsey Memorial HospitalComment on above:Performed By: #### [id number] ####[facility] HOSP[facility] LAB (BEAKER)[address] [facility], [place] [address]XSEWQQ Con 46-04-6164MELJYI C A109 mmNormal6-17UnGuernsey Memorial HospitalComment on above:Performed By: #### FIBTEM C ####[facility] RESPIRATORY [id number] [place] [address] USAFIBTEM C A2010 mmNormal6-18 [facility] LimaComment on above:Performed By: #### FIBTEM C ####[facility] RESPIRATORY [id number] [place] [address] USAFIBTEM C A58 mmNormal5-16UnGuernsey Memorial HospitalComment on above:Performed By: #### FIBTEM C ####[facility] RESPIRATORY [id number] [place] [address] [place] FIBTEM C MCF10 mmNormal6-19UnGuernsey Memorial HospitalComment on above: Performed By: #### FIBTEM C ####[facility] RESPIRATORY [id number] [place] [address] USAFIBTEM C A109 mmNormal6-17UnGuernsey Memorial HospitalComment on above:Performed By: #### FIBTEM C ####[facility] RESPIRATORY [id number] [place] [address] USAFIBTEM C A2010 mmNormal6-18 [facility] LimaComment on above:Performed By: #### FIBTEM C ####[facility] RESPIRATORY [id number] [place] [address] USAFIBTEM C A58 mmNormal5-16UnGuernsey Memorial HospitalComment on above:Performed By: #### FIBTEM C ####[facility] RESPIRATORY [id number] [place] [address] [place] FIBTEM C MCF10 mmNormal6-19UnGuernsey Memorial HospitalComment on above: Performed By: #### FIBTEM C ####[facility] RESPIRATORY [id number] [place] [address] USAFIBTEM C A1013 mmNormal6-17UnGuernsey Memorial HospitalComment on above:Performed By: #### FIBTEM C ####[facility] RESPIRATORY [id number] [place] [address] USAFIBTEM C A2014 mmNormal6-18 [facility] LimaComment on above:Performed By: #### FIBTEM C ####[facility] RESPIRATORY [id number] [place] [address] USAFIBTEM C A511 mmNormal5-16UnGuernsey Memorial HospitalComment on above:Performed By: #### FIBTEM C ####[facility] RESPIRATORY AHYTARA8056 [place] [address] [place] FIBTEM C MCF14 mmNormal6-19UnGuernsey Memorial HospitalComment on above: Performed By: #### FIBTEM C ####[facility] RESPIRATORY [id number] [place] [address] USAHEPTEM Con 84-13-5201PJVOBP C A1052 cfXjyqeb92-60 [facility] LimaComment on above:Performed By: #### HEPTEM C ####[facility] RESPIRATORY [id number] [place] [address] USAHEPTEM C A2057 nnFshkvx67-75LxfabpeffnGuernsey Memorial HospitalComment on above:Performed By: #### HEPTEM C ####[facility] RESPIRATORY [id number] [place] [address] [place] HEPTEM C A542 ulGksffy62-33NiphkboafpGuernsey Memorial HospitalComment on above: Performed By: #### HEPTEM C ####[facility] RESPIRATORY TYKEVZW5423 [place] [address] USAHEPTEM C CT189 tSagxqy370-431UmxdhpuhfaGuernsey Memorial HospitalComment on above:Performed By: #### HEPTEM C ####[facility] RESPIRATORY [id number] [place] [address] USAHEPTEM C A1043 qtNhc52-87JtrexdxsetGuernsey Memorial HospitalComment on above:Performed By: #### HEPTEM C ####[facility] RESPIRATORY [id number] [place] [address] USAHEPTEM C A2049 mmLow 52-67UnGuernsey Memorial HospitalComment on above:Performed By: #### HEPTEM C ####[facility] RESPIRATORY [id number] [place] [address] [place] HEPTEM C A532 obLjb26-41OgzpguqngjGuernsey Memorial HospitalComment on above: Performed By: #### HEPTEM C ####[facility] RESPIRATORY [id number] [place] [address] USAHEPTEM C CT316 jPkds065-640RvhqwiavfbGuernsey Memorial HospitalComment on above:Performed By: #### HEPTEM C ####[facility] RESPIRATORY [id number] [place] [address] USAHEPTEM C A1051 evFglyip51-88 [facility] LimaComment on above:Performed By: #### HEPTEM C ####[facility] RESPIRATORY [id number] [place] [address] USAHEPTEM C A2057 gzIcbzqe67-04EuwlxrawyaGuernsey Memorial HospitalComment on above:Performed By: #### HEPTEM C ####[facility] RESPIRATORY [id number] [place] [address] [place] HEPTEM C A541 jvPaipof06-82SwhpflhcikGuernsey Memorial HospitalComment on above: Performed By: #### HEPTEM C ####[facility] RESPIRATORY [id number] [place] [address] USAHEPTEM C CT181 sSgfbdx753-169YrrynsgvobGuernsey Memorial HospitalComment on above:Performed By: #### HEPTEM C ####[facility] RESPIRATORY [id number] [place] [address] USAHEPTEM C MCF58 mvHycuvy61-21 [facility] LimaComment on above:Performed By: #### HEPTEM C ####[facility] RESPIRATORY [id number] [place] [address] USAHISTOLOGY - TISSUE EXAMon [id number] AP CASE REPORTNormalUniversCleveland Clinic Union HospitalComment on above:Order Comment: Pre-op diagnosis:Multi-vessel coronary artery stenosis [I25.10]Result Comment: Surgical Pathology Case: [id number] Provider: Keith Cherry MD Collected: 08/16/2024 1116Ordering Location: [facility] Main Operating Room Received: 08/16/2024 1159Pathologist: ADIA Ohpecimen: Soft Tissue, Left atrial appendagePerformed By: #### [id number] ####[facility] (BEAKER)[address] [place], [place] [address]TKH AP CLINICAL INFORMATIONNormalUniversCleveland Clinic Union HospitalComment on above: Order Comment: Pre-op diagnosis:Multi-vessel coronary artery stenosis [I25.10] Result Comment: Post-Op VzumhmyocJ74.10 - Multi-vessel coronary artery stenosis [ICD-10-CM]Performed By: #### [id number] ####[facility] (BEAKER)[address] [place], [place] [address]VIA AP GROSS DESCRIPTIONA. Soft Tissue.Normal [facility] LimaComment on above:Order Comment: Pre-op diagnosis:Multi-vessel coronary artery stenosis [I25.10]Result Comment: The specimen is received in formalin labeled Christopher Wiedle and left atrial andry endage. It consists of a 3.5 x 3.0 x 1.1 cm portion of dotson-pink muscular tissue with a minimal amount of epicardial fat. The endocardium is dotson-white and smooth. The resection margin is inked black.The specimen is sectioned to reveal normal dotson-pink trabeculations and no blood clots. Flight Information Expediter sections are submitted in 1 cassette.Dorys Black, Pathologists' Security Control Center Operator studentDarand Joe Pathologists' AssistantPerformed By: #### [id number] ####[facility] (BEAKER)[address], [place] [address]FXK AP MICROSCOPIC DESCRIPTION Microscopic examination performed.[facility] Comment on above:Order Comment: Pre-op diagnosis:Multi-vessel coronary artery stenosis [I25.10]Performed By: #### [id number] ####[facility] (BEAKER)[address] [place], [place] [address]ZXC AP REPORT FINAL DIAGNOSIS [facility] HospitalComment on above:Order Comment: Pre-op diagnosis:Multi-vessel coronary artery stenosis [I25.10]Result Comment: A. Heart, left atrial appendage, excision: - Benign cardiac tissue. Performed By: #### [id number] ####[facility] (BEAKER)[address] [place], [place] [address]USir 08-16-2024 HPH&P reviewed. The patient was examined and there are no changes to the H&P. [facility] GeneralINTEM Con 64-17-3410VHGSA C A1052 mm Dwfpjo08-63DgqntztpobGuernsey Memorial HospitalComment on above:Performed By: #### INTEM C ####[facility] RESPIRATORY [id number] [place] [address] [place] INTEM C A2058 btLwrkpm42-56FbfmhdtrbjGuernsey Memorial HospitalComment on above: Performed By: #### INTEM C ####[facility] RESPIRATORY [id number] [place] [address] USAINTEM C A543 bcGrtthi22-51VmrarcnwukGuernsey Memorial Hospital Comment on above:Performed By: #### INTEM C ####[facility] RESPIRATORY [id number] [place] [address] USAINTEM C CT198 iAwnsmf940-237FdvxfpejjxGuernsey Memorial HospitalComment on above:Performed By: #### INTEM C ####[facility] RESPIRATORY [id number] [place] [address] USAINTEM C MCF58 mmNormal 55-70UnGuernsey Memorial HospitalComment on above:Performed By: #### INTEM C ####[facility] RESPIRATORY [id number] [place] [address] USAINTEM C ML0 %Normal0-7UnGuernsey Memorial HospitalComment on above:Result Comment: NM^Preliminary ResultPerformed By: #### INTEM C ####[facility] RESPIRATORY QQTCQOQ3795 [place] [address] USAINTEM C CT365.0 cSjfx496-772 [facility] LimaComment on above:Result Comment: NM^Preliminary Result>^Outside Reportable RangePerformed By: #### INTEM C ####[facility] RESPIRATORY [id number] [place] [address] USAINTEM C A1052 wzYcecqv62-61DfzfxcmwfrGuernsey Memorial HospitalComment on above:Performed By: #### INTEM C ####[facility] RESPIRATORY OAIYDUH[address] [place] [address] [place] INTEM C A2058 rqNmholh78-03GjyxzjcacmGuernsey Memorial HospitalComment on above: Performed By: #### INTEM C ####[facility] RESPIRATORY [id number] [place] [address] USAINTEM C A541 dvLfgnla00-02YlpqwmwcjfGuernsey Memorial Hospital Comment on above:Performed By: #### INTEM C ####[facility] RESPIRATORY [id number] [place] [address] USAINTEM C CT201 fRdymam844-974CxbfrgeimpGuernsey Memorial HospitalComment on above:Performed By: #### INTEM C ####[facility] RESPIRATORY PYFMSRQ69[address] [place] [address] USAINTEM C ML0 %Normal0-7 [facility] LimaComment on above:Result Comment: NM^Preliminary ResultPerformed By: #### INTEM C ####[facility] RESPIRATORY [id number] [place] [address] USALACTIC ACID WITH 4 HOUR REFLEXon 08-16-2024 LACTATE (MMOL/L) IN SER/PLAS2.3 mmol/LHigh0.5-2.2UnGuernsey Memorial HospitalComment on above:Performed By: #### [id number] ####[facility] ([facility] [place], [place] [address]TDTYTD ACID, PLASMAon 08-16-2024 LACTATE (MMOL/L) IN SER/PLAS3.1 mmol/LCritically high0.5-2.2UnGuernsey Memorial HospitalComment on above:Order Comment: On arrival to SICUPerformed By: #### [id number] ####[facility] ([facility] [place] [address] MAGNESIUMon 72-16-7340Davalcfxo [Mass/Vol]2.2 mg/dLNormal1.9-2.7UnGuernsey Memorial HospitalComment on above:Performed By: #### [id number] ####[facility] ([facility] [place], [place] [address]Gmfdjzibx [Mass/Vol]2.6 mg/dLNormal1.9-2.7UnGuernsey Memorial HospitalComment on above:Order Comment: On arrival to SICUPerformed By: #### [id number] ####[facility] ([facility] [place], [place] [address]Hzcwmueho [Mass/Vol]1.9 mg/dLNormal 1.9-2.7UnGuernsey Memorial HospitalComment on above:Performed By: #### [id number] ####[facility] ([facility] [place], [place] [address]JMEWHKDX on 08-67-8509VHJNVAFJXoij chest xray completed intraopNormalUniversCleveland Clinic Union HospitalNURSNOTEPatient off unit, per pre op staff.NormalUnGuernsey Memorial HospitalOPNOTEon 04-71-2139ASSCALYkwgjqFtcnduupng of Hendrick Medical CenterPHOSPHORUSon 62-43-7624Xtqrojleo [Mass/Vol]3.5 mg/dLNormal2.5-5.0 [facility] LimaComment on above:Performed By: #### [id number] ####[facility] ([facility]ER)[address] [place], [place] [address]Mbnfyfhnb [Mass/Vol]4.4 mg/dLNormal2.5-5.0UnGuernsey Memorial HospitalComment on above:Order Comment: [facility]erformed By: #### [id number] ####[facility] ([facility])[address], [place] [address]Qiiwpijxf [Mass/Vol]3.6 mg/dLNormal2.5-5.0UnGuernsey Memorial HospitalComment on above:Performed By: #### [id number] ####[facility] ([facility] [place] [address] POCT ACTIVATED CLOTTING TIME UNSOLICITED RESULTSon [id number] ACTIVATED CLOTTING XUUK115 pvzKwuqyj16-085CfhhkwtwgaGuernsey Memorial HospitalComment on above:Performed By: #### [id number] ####[facility] ([facility])[address], [place] [address]YHW ACTIVATED CLOTTING KKHT424 kmrAvwf57-140LgpwrijkweGuernsey Memorial HospitalComment on above:Performed By: #### [id number] ####[facility] ([facility])[address], [place] [address]CIC ACTIVATED CLOTTING PITG313 uvxVfhs12-184GkkaemzinaGuernsey Memorial HospitalComment on above: Performed By: #### [id number] ####[facility] ([facility])[address], [place] [address]GDW ACTIVATED CLOTTING CRSG286 yvfJzip46-312XzdfnmrbalGuernsey Memorial HospitalComment on above:Performed By: #### [id number] ####[facility] ([facility])[address], [place] [address]KDK ACTIVATED CLOTTING VEWV222 joqJsve26-530LqtsrkgcwtGuernsey Memorial HospitalComment on above: Performed By: #### [id number] ####[facility] ([facility])[address], [place] [address]NQD ACTIVATED CLOTTING CQTV003 rvcByou23-124XfttkvqivqSelect Medical [facility] [facility], [facility] CenterComment on above:Performed By: #### [id number] ####[facility] (BEAKER)[address] [place], [place] [address]RFI ACTIVATED CLOTTING [id number] ciqSxif64-334EayjnepdhfKindred Hospital LimaComment on above: Performed By: #### [id number] ####[facility] (BEAKER)[address], [place] [address]EOS ACTIVATED CLOTTING [id number] yzjPfzy50-663GfxxytztgbKindred Hospital LimaComment on above:Performed By: #### [id number] ####[facility] (BEAKER)[address], [place] [address]HKY ACTIVATED CLOTTING IJDZ134 gucQbdw82-761IxynscmpyuKindred Hospital LimaComment on above: Performed By: #### [id number] ####[facility] (BEAKER)[address], [place] [address]BLE ACTIVATED CLOTTING NSHC775 izwScwqzq63-580BssjqiyxehGuernsey Memorial HospitalComment on above:Performed By: #### [id number] ####[facility] (AKER)[address], [place] [address]MXPH GLUCOSE METER UNSOLICITED RESULTSon 38-33-0857Jmqhhmh [Mass/Vol]169 mg/qPImcz11-213FsjoosddheKindred Hospital LimaComment on above:Order Comment: Waived Testing in the ED is performed under the ED CLIA certificate #[id number].Result Comment: [email or web address] Performed By: #### [id number] ####[facility] (BEAKER)[address], [place] [address]Qwqltes [Mass/Vol]164 mg/yQQbxc15-441GedbjhyevkKindred Hospital LimaComment on above:Order Comment: Waived Testing in the ED is performed under the ED CLIA certificate #[id number].Result Comment: [email or web address] Performed By: #### [id number] ####[facility] (BE[facility]ER)[address], [place] [address]Jjqywrg [Mass/Vol]166 mg/gPPzoz41-620QnprxwtoezGuernsey Memorial HospitalComment on above:Order Comment: Waived Testing in the ED is performed under the ED CLIA certificate #[id number].Result Comment: [email or web address] Performed By: #### [id number] ####[facility] (BE[facility]ER)[address], [place] [address]Fmjmnlp [Mass/Vol]184 mg/wJPcmi77-740NeccxjvswhGuernsey Memorial HospitalComment on above:Order Comment: Waived Testing in the ED is performed under the ED CLIA certificate #[id number].Result Comment: [email or web address] Performed By: #### [id number] ####[facility] (BEAKER)[address], [place] [address]Rbvpebt [Mass/Vol]172 mg/xUKgsw94-750XntypejaorGuernsey Memorial HospitalComment on above:Order Comment: Waived Testing in the ED is performed under the ED CLIA certificate #[id number].Result Comment: [email or web address] Performed By: #### [id number] ####[facility] (BEAKER)[address], [place] [address]Ziffooa [Mass/Vol]141 mg/qXLddq46-627YlkpzesrgmKindred Hospital LimaComment on above:Order Comment: Waived Testing in the ED is performed under the ED CLIA certificate #[id number].Result Comment: [email or web address] Performed By: #### [id number] ####[facility] (BEAKER)[address], [place] [address]Zolrfxa [Mass/Vol]162 mg/fGMobv84-934BvkeiqajxrGuernsey Memorial HospitalComment on above:Order Comment: Waived Testing in the ED is performed under the ED CLIA certificate #[id number].Result Comment: [email or web address] Performed By: #### [id number] ####[facility] (BE[facility]ER)[address], [place] [address]Mukxsgy [Mass/Vol]102 mg/nLJtiwxk80-579CnqovqlmcgGuernsey Memorial HospitalComment on above:Order Comment: Waived Testing in the ED is performed under the ED CLIA certificate #[id number].Result Comment: [email or web address] Performed By: #### [id number] ####[facility] [place] [address]UQYY PERFUSION PANEL UNSOLICITED RESULTSon 06-66-2734KG0 [Moles/Vol]25.0 mmol/NMgmusu85.0-29.0UnGuernsey Memorial HospitalComment on above:Performed By: #### [id number] ####[facility] ([facility] [address]Lkgierf [Mass/Vol]176 mg/rVBgoh85-032VxhdpjsmkvGuernsey Memorial HospitalComment on above:Performed By: #### [id number] ####[facility] ([facility] [place] [address]QDY8 (Bld) [Moles/Vol] 23.7 mmol/BMcljbx53.0-28.0UnGuernsey Memorial HospitalComment on above: Performed By: #### [id number] ####[facility] ([facility] [place] [address]Lngfvaffoh (Bld) [Volume fraction]29 %Lwr78-38SzoatevqgkGuernsey Memorial HospitalComment on above:Performed By: #### [id number] ####[facility] ([facility] [place] [address]Xmkcptgfxi (Bld) [Mass/Vol]9.9 g/dLLow12.0-17.0UnGuernsey Memorial HospitalComment on above:Performed By: #### [id number] ####[facility] ([facility])[address] [place] [address]YPNJ BASE EXCESS-1.0 mmol/LNormal-2.0-3.0UnGuernsey Memorial HospitalComment on above:Performed By: #### [id number] ####[facility] ([facility])[address] [place] [address]TNTM IONIZED CALCIUM1.34 mmol/L High1.12-1.32UnGuernsey Memorial HospitalComment on above:Performed By: #### [id number] ####[facility] ([facility])[address] [place] [address] POCT TAR651.8 pnBnHqu53.0-51.0UnGuernsey Memorial HospitalComment on above:Performed By: #### [id number] ####[facility] ([facility] [place] [address]DVXP PH7.56Bqyc8.31-7.41UnGuernsey Memorial Hospital Comment on above:Performed By: #### [id number] ####[facility] ([facility] [place], [place] [address]OQVL PO269 jtAaJmw16-314EcksofrttwGuernsey Memorial HospitalComment on above:Performed By: #### [id number] ####[facility] ([facility] [place], [place] [address]IQHT SO294 %Lcu39-18ZhmivvaotoGuernsey Memorial HospitalComment on above:Performed By: #### [id number] ####[facility] ([facility] [place], [place] [address]Lppumvnvu [Moles/Vol]3.9 mmol/LNormal3.5-4.9UnGuernsey Memorial HospitalComment on above:Performed By: #### [id number] ####[facility] ([facility] [place], [place] [address]Slctui [Moles/Vol]139 mmol/BEvuoyi412.0-146.0UnGuernsey Memorial HospitalComment on above:Performed By: #### [id number] ####[facility] ([facility] [place], [place] [address]UE3 [Moles/Vol]24.0 mmol/LNormal 21.0-29.0UnGuernsey Memorial HospitalComment on above:Performed By: #### [id number] ####[facility] ([facility]))[address] [place], [place] [address]Lmizqne [Mass/Vol]192 mg/dJZwze26-669VupyjevtbqGuernsey Memorial HospitalComment on above:Performed By: #### [id number] ####[facility] (BEAKER)[address] [address]YVP7 (Bld) [Moles/Vol]23.4 mmol/NEhmtwf19.0-28.0UnGuernsey Memorial HospitalComment on above:Performed By: #### [id number] ####[facility] (BEAKER)[address] [address]Sibzuaiavf (Bld) [Volume fraction]28 %Zyh14-57JkmavfigqzGuernsey Memorial HospitalComment on above: Performed By: #### [id number] ####[facility] (BEAKER)[address] [address]Pwzdmoewiu (Bld) [Mass/Vol]9.5 g/dLLow12.0-17.0UnGuernsey Memorial HospitalComment on above:Performed By: #### [id number] ####[facility] (BEAKER)[address] [address]DION BASE EXCESS0.0 mmol/LNormal-2.0-3.0UnGuernsey Memorial HospitalComment on above: Performed By: #### [id number] ####[facility] (BEAKER)[address] [address]FVHU IONIZED CALCIUM1.24 mmol/LNormal1.12-1.32UnGuernsey Memorial HospitalComment on above:Performed By: #### [id number] ####[facility] (BEAKER)[address] [address]YLSJ FKT317.3 mmHgLow 41.0-51.0UnGuernsey Memorial HospitalComment on above:Performed By: #### [id number] ####[facility] (BEAKER)[address] [address]XTZT PH 7.97Clpy3.31-7.41UnGuernsey Memorial HospitalComment on above:Performed By: #### [id number] ####[facility] (BEAKER)[address] [address]CDVZ PO275 ayBeIiq08-929NlrbxzpzeeGuernsey Memorial HospitalComment on above:Performed By: #### [id number] ####[facility] (BEAKER)[address] [address]FQVH SO296 %Okokqq70-91MelaziztgpGuernsey Memorial Hospital Comment on above:Performed By: #### [id number] ####[facility] (BEAKER)[address] [place] [address]Dynprrkyf [Moles/Vol]4.5 mmol/LNormal3.5-4.9 [facility] LimaComment on above:Performed By: #### [id number] ####[facility] (BEAKER)[address] [place] [address]Psdkuz [Moles/Vol]137 mmol/FSdd070.0-146.0UnGuernsey Memorial HospitalComment on above:Performed By: #### [id number] ####[facility] (BEAKER)[address] [place] [address]PO3 [Moles/Vol]26.0 mmol/MNxyqji00.0-29.0UnGuernsey Memorial HospitalComment on above:Performed By: #### [id number] ####[facility] (BEAKER)[address] [place], [place] [address]Zglwbsj [Mass/Vol]177 mg/dLHigh 70-105UnGuernsey Memorial HospitalComment on above:Performed By: #### [id number] ####[facility] (BEAKER)[address] [place] [address]KTU2 (Bld) [Moles/Vol]24.9 mmol/IWtkltk05.0-28.0UnGuernsey Memorial Hospital Comment on above:Performed By: #### [id number] ####[facility] (BEAKER)[address] [place], [place] [address]Cmjtgueigz (Bld) [Volume fraction]26 %Zlt55-73 [facility] LimaComment on above:Performed By: #### [id number] ####[facility] (BEAKER)[address] [place], [place] [address]Clzvvimuqn (Bld) [Mass/Vol]8.8 g/dLLow12.0-17.0UnGuernsey Memorial HospitalComment on above:Performed By: #### [id number] ####[facility] ([facility] [place] [address]RQTY BASE EXCESS2.0 mmol/LNormal-2.0-3.0UnGuernsey Memorial HospitalComment on above:Performed By: #### [id number] ####[facility] ([facility] [place] [address]QNPJ IONIZED CALCIUM1.30 mmol/LNormal 1.12-1.32UnGuernsey Memorial HospitalComment on above:Performed By: #### [id number] ####[facility] ([facility]))[address] [place] [address]HGLZ WFJ909.6 obMdLnq96.0-51.0UnGuernsey Memorial HospitalComment on above: Performed By: #### [id number] ####[facility] ([facility] [place] [address]IWTJ PH7.28Agjf7.31-7.41UnGuernsey Memorial Hospital Comment on above:Performed By: #### [id number] ####[facility] ([facility]))[address] [place] [address]LQNE PO282 qcAkFxlzie29-642WwautkvpwfGuernsey Memorial HospitalComment on above:Performed By: #### [id number] ####[facility] ([facility]))[address] [place] [address]ZXCX SO297 %Aawlju29-60VxmelqoduiGuernsey Memorial HospitalComment on above:Performed By: #### [id number] ####[facility] ([facility]))[address] [place], [place] [address]Ufqwljafa [Moles/Vol]5.4 mmol/LHigh3.5-4.9UnGuernsey Memorial HospitalComment on above:Performed By: #### [id number] ####[facility] ([facility]))[address] [place], [place] [address]Tqqpxf [Moles/Vol]135 mmol/NVdr093.0-146.0UnGuernsey Memorial HospitalComment on above:Performed By: #### [id number] ####[facility] (BEAKER)[address] [address]DZ5 [Moles/Vol]29.0 mmol/LNormal 21.0-29.0UnGuernsey Memorial HospitalComment on above:Performed By: #### [id number] ####[facility] ([facility])[address] [place] [address]Elefzhe [Mass/Vol]151 mg/eLEmxp80-813NrsaolteddGuernsey Memorial HospitalComment on above:Performed By: #### [id number] ####[facility] (BEAKER)[address] [place] [address]YJI8 (Bld) [Moles/Vol]28.7 mmol/LHigh23.0-28.0UnGuernsey Memorial HospitalComment on above:Performed By: #### [id number] ####[facility] (BEAKER)[address] [place] [address]Uxzhghsejt (Bld) [Volume fraction]27 %Sxm27-90SoggjpdpmdGuernsey Memorial HospitalComment on above: Performed By: #### [id number] ####[facility] (BEAKER)[address] [place] [address]Kphpkamwcy (Bld) [Mass/Vol]9.2 g/dLLow12.0-17.0UnGuernsey Memorial HospitalComment on above:Performed By: #### [id number] ####[facility] (BEAKER)[address] [place] [address]FJPB BASE EXCESS9.0 mmol/LHigh-2.0-3.0UnGuernsey Memorial HospitalComment on above:Performed By: #### [id number] ####[facility] (BEAKER)[address] [place] [address]IXVB IONIZED CALCIUM0.99 mmol/LLow1.12-1.32UnGuernsey Memorial HospitalComment on above:Performed By: #### [id number] ####[facility] (BEAKER)[address] [place] [address]KEEN VQO543.1 qbOzSzu38.0-51.0 [facility] LimaComment on above:Performed By: #### [id number] ####[facility] (BEAKER)[address] [place] [address]XIWZ PH7.68High 7.31-7.41UnGuernsey Memorial HospitalComment on above:Performed By: #### [id number] ####[facility] (BEAKER)[address] [place] [address]OTVX LN5613 svTcSsuw77-552DktaazktbjGuernsey Memorial HospitalComment on above: Performed By: #### [id number] ####[facility] (BEAKER)[address] [place] [address]ATMJ WO4972 %Hixy76-47BricmdwahgGuernsey Memorial Hospital Comment on above:Performed By: #### [id number] ####[facility] (BEAKER)[address] [place], [place] [address]Lhhmrquvr [Moles/Vol]6.1 mmol/LCritically high 3.5-4.9UnGuernsey Memorial HospitalComment on above:Performed By: #### [id number] ####[facility] (BEAKER)[address] [place], [place] [address]Vtvgsa [Moles/Vol]133 mmol/LHuj270.0-146.0UnGuernsey Memorial HospitalComment on above:Performed By: #### [id number] ####[facility] (BEAKER)[address] [place], [place] [address]TP4 [Moles/Vol]26.0 mmol/XOwakft46.0-29.0UnGuernsey Memorial HospitalComment on above:Performed By: #### [id number] ####[facility] (BEAKER)[address] [place], [place] [address]Ghrcxet [Mass/Vol]157 mg/dLHigh 70-105UnGuernsey Memorial HospitalComment on above:Performed By: #### [id number] ####[facility] (BEAKER)[address] [address]ZVX2 (Bld) [Moles/Vol]25.4 mmol/AKknocs04.0-28.0UnGuernsey Memorial Hospital Comment on above:Performed By: #### [id number] ####[facility] ([facility] [address]Onzplbqiaf (Bld) [Volume fraction]34 %Lgp73-32 [facility] LimaComment on above:Performed By: #### [id number] ####[facility] ([facility]))[address] [address]Isefisyfno (Bld) [Mass/Vol]11.6 g/dLLow12.0-17.0UnGuernsey Memorial HospitalComment on above:Performed By: #### [id number] ####[facility] ([facility]))[address] [place] [address]YTYD BASE EXCESS3.0 mmol/LNormal-2.0-3.0UnGuernsey Memorial HospitalComment on above:Performed By: #### [id number] ####[facility] ([facility] [address]AKNX IONIZED CALCIUM1.09 mmol/LLow 1.12-1.32UnGuernsey Memorial HospitalComment on above:Performed By: #### [id number] ####[facility] ([facility])[address] [address]BTMX KVC802.6 ajYaTzv39.0-51.0UnGuernsey Memorial HospitalComment on above: Performed By: #### [id number] ####[facility] (BEAKER)[address] [address]XFAI PH7.13Ajwb9.31-7.41UnGuernsey Memorial Hospital Comment on above:Performed By: #### [id number] ####[facility] (BEAKER)[address] [place] [address]VWQB WB4151 onQlNcei16-259ObbqcrkxqeGuernsey Memorial HospitalComment on above:Performed By: #### [id number] ####[facility] ([facility] [address]GAGB CP5457 %Nvhg54-30SnupkktjzpGuernsey Memorial HospitalComment on above:Performed By: #### [id number] ####[facility] ([facility]))[address] [place] [address]Zvihounxt [Moles/Vol]6.5 mmol/LCritically high3.5-4.9UnGuernsey Memorial HospitalComment on above: Performed By: #### [id number] ####[facility] ([facility] [address]Owipsq [Moles/Vol]132 mmol/MFgf703.0-146.0UnGuernsey Memorial HospitalComment on above:Performed By: #### [id number] ####[facility] ([facility] [address]AW7 [Moles/Vol]27.0 mmol/OHxolbx19.0-29.0UnGuernsey Memorial HospitalComment on above: Performed By: #### [id number] ####[facility] ([facility]))[address] [address]Nejxppd [Mass/Vol]155 mg/mKLspq49-625BpvdrcpomfGuernsey Memorial HospitalComment on above:Performed By: #### [id number] ####[facility] ([facility]))[address] [place] [address]EGZ9 (Bld) [Moles/Vol]26.0 mmol/L Uxfdzp89.0-28.0UnGuernsey Memorial HospitalComment on above:Performed By: #### [id number] ####[facility] ([facility] [place] [address] Hematocrit (Bld) [Volume fraction]33 %Fur38-16MhziourkhcGuernsey Memorial HospitalComment on above:Performed By: #### [id number] ####[facility] (BEAKER)[address] [address]Qazcjfuiag (Bld) [Mass/Vol]11.2 g/dL Low12.0-17.0UnGuernsey Memorial HospitalComment on above:Performed By: #### [id number] ####[facility] (BEAKER)[address] [place] [address] POCT BASE EXCESS2.0 mmol/LNormal-2.0-3.0UnGuernsey Memorial Hospital Comment on above:Performed By: #### [id number] ####[facility] ([facility] [place] [address]ZEYX IONIZED CALCIUM0.96 mmol/LLow1.12-1.32 [facility] LimaComment on above:Performed By: #### [id number] ####[facility] ([facility] [place] [address]JCRY WPW672.7 mnSwEbg60.0-51.0UnGuernsey Memorial HospitalComment on above:Performed By: #### [id number] ####[facility] ([facility] [address]WKOV PH7.59Kngy5.31-7.41UnGuernsey Memorial HospitalComment on above:Performed By: #### [id number] ####[facility] (BEAKER)[address] [address]UFZR TN0621 pbHmYtes21-431XgtrlorgkoGuernsey Memorial Hospital Comment on above:Performed By: #### [id number] ####[facility] (BEAKER)[address] [place] [address]PLPK AO3281 %Siax28-16GbgaziejmyGuernsey Memorial HospitalComment on above:Performed By: #### [id number] ####[facility] (BEAKER)[address] [place], [place] [address]Txpullprb [Moles/Vol]6.7 mmol/L Critically high3.5-4.9UnGuernsey Memorial HospitalComment on above: Performed By: #### [id number] ####[facility] (BEAKER)[address] [place] [address]Ktsjmt [Moles/Vol]131 mmol/QZft007.0-146.0UnGuernsey Memorial HospitalComment on above:Performed By: #### [id number] ####[facility] (BEAKER)[address] [place] [address]CX7 [Moles/Vol]24.0 mmol/IFhqhdu24.0-29.0UnGuernsey Memorial HospitalComment on above: Performed By: #### [id number] ####[facility] (BEAKER)[address] [place], [place] [address]Gpzbpiv [Mass/Vol]147 mg/yEDkxa59-487EgtltqtlyvGuernsey Memorial HospitalComment on above:Performed By: #### [id number] ####[facility] (BEAKER)[address] [place], [place] [address]POF1 (Bld) [Moles/Vol]23.5 mmol/L Jjgrfk96.0-28.0UnGuernsey Memorial HospitalComment on above:Performed By: #### [id number] ####[facility] (BEAKER)[address] [place] [address] Hematocrit (Bld) [Volume fraction]32 %Yhu06-21ZrlirxtydzGuernsey Memorial HospitalComment on above:Performed By: #### [id number] ####[facility] (BEAKER)[address] [place], [place] [address]Kkgbvqqrwj (Bld) [Mass/Vol]10.9 g/dL Low12.0-17.0UnGuernsey Memorial HospitalComment on above:Performed By: #### [id number] ####[facility] (BEAKER)[address] [place] [address] POCT BASE EXCESS0.0 mmol/LNormal-2.0-3.0UnGuernsey Memorial Hospital Comment on above:Performed By: #### [id number] ####[facility] (BEAKER)[address], [place] [address]OIUQ IONIZED CALCIUM0.94 mmol/LLow1.12-1.32 [facility] LimaComment on above:Performed By: #### [id number] ####[facility] ([facility] [address]YEGI OTA988.0 erXmLjz10.0-51.0UnGuernsey Memorial HospitalComment on above:Performed By: #### [id number] ####[facility] ([facility] [address]DDUA PH7.66Niws3.31-7.41UnGuernsey Memorial HospitalComment on above:Performed By: #### [id number] ####[facility] ([facility] [id number] [id number] zyJeSfxy59-647JumwysuopcGuernsey Memorial Hospital Comment on above:Performed By: #### [id number] ####[facility] ([facility] [address]PZKX [id number] %Qeee61-24BndvfjohkxGuernsey Memorial HospitalComment on above:Performed By: #### [id number] ####[facility] ([facility] [address]Gmvcqhbve [Moles/Vol]6.1 mmol/L Critically high3.5-4.9UnGuernsey Memorial HospitalComment on above: Performed By: #### [id number] ####[facility] ([facility] [address]Jssjpy [Moles/Vol]131 mmol/MXxl121.0-146.0UnGuernsey Memorial HospitalComment on above:Performed By: #### [id number] ####[facility] ([facility] [address]AL6 [Moles/Vol]25.0 mmol/CQoutrs61.0-29.0UnGuernsey Memorial HospitalComment on above: Performed By: #### [id number] ####[facility] ([facility] [place] [address]Mryvzjk [Mass/Vol]165 mg/uYRjxq14-014OibafbieezGuernsey Memorial HospitalComment on above:Performed By: #### [id number] ####[facility] ([facility] [address]GRT2 (Bld) [Moles/Vol]24.1 mmol/L Eejaiq96.0-28.0UnGuernsey Memorial HospitalComment on above:Performed By: #### [id number] ####[facility] ([facility] [place] [address] Hematocrit (Bld) [Volume fraction]43 %Uixrks15-46ChpinviwmtGuernsey Memorial HospitalComment on above:Performed By: #### [id number] ####[facility] ([facility] [place] [address]Ttqlimepfr (Bld) [Mass/Vol]14.6 g/dL Tgrork78.0-17.0UnGuernsey Memorial HospitalComment on above:Performed By: #### [id number] ####[facility] ([facility] [place] [address] POCT BASE EXCESS-1.0 mmol/LNormal-2.0-3.0[facility] Comment on above:Performed By: #### [id number] ####[facility] ([facility] [address]MCCV IONIZED CALCIUM1.16 mmol/LNormal1.12-1.32 [facility] LimaComment on above:Performed By: #### [id number] ####[facility] ([facility] [address]ANOJ HPU129.3 jkOoLxj96.0-51.0UnGuernsey Memorial HospitalComment on above:Performed By: #### [id number] ####[facility] ([facility] MILLER [address]ABFU PH7.42Ddlkfe6.31-7.41UnGuernsey Memorial HospitalComment on above:Performed By: #### [id number] ####[facility] (BEAKER)[address] [place], [place] [address]WJWP PO260 tdYvWxj73-721CtbbwxzeeeGuernsey Memorial Hospital Comment on above:Performed By: #### [id number] ####[facility] (BEAKER)[address] [place], [place] [address]TCEZ SO290 %Mdh44-97YqhccnfnvmGuernsey Memorial HospitalComment on above:Performed By: #### [id number] ####[facility] (BEAKER)[address] [place], [place] [address]Mxowtaekx [Moles/Vol]5.2 mmol/LHigh 3.5-4.9UnGuernsey Memorial HospitalComment on above:Performed By: #### [id number] ####[facility] (BEAKER)[address] [place], [place] [address]Hvpyqy [Moles/Vol]137 mmol/BHcv895.0-146.0UnGuernsey Memorial HospitalComment on above:Performed By: #### [id number] ####[facility] (BEAKER)[address] [place], [place] [address]UM5 [Moles/Vol]24.0 mmol/BNyfrbf42.0-29.0UnGuernsey Memorial HospitalComment on above:Performed By: #### [id number] ####[facility] (BEAKER)[address] [place], [place] [address]Ozmoemu [Mass/Vol]132 mg/dLHigh 70-105UnGuernsey Memorial HospitalComment on above:Performed By: #### [id number] ####[facility] (BEAKER)[address] [place], [place] [address]FUS2 (Bld) [Moles/Vol]23.1 mmol/GPphwtn74.0-28.0UnGuernsey Memorial Hospital Comment on above:Performed By: #### [id number] ####[facility] (BEAKER)[address] [place], [place] [address]Qsvjoaumyo (Bld) [Volume fraction]42 %Gknjam66-63 [facility] Hospital LimaComment on above:Performed By: #### [id number] ####[facility] ([facility] [address]Pravtonsmp (Bld) [Mass/Vol]14.3 g/wXZodawr75.0-17.0UnGuernsey Memorial HospitalComment on above:Performed By: #### [id number] ####[facility] ([facility] [address]DPXF BASE EXCESS-2.0 mmol/LNormal-2.0-3.0UnGuernsey Memorial HospitalComment on above:Performed By: #### [id number] ####[facility] ([facility] [address]YNLV IONIZED CALCIUM1.15 mmol/L Normal1.12-1.32UnGuernsey Memorial HospitalComment on above:Performed By: #### [id number] ####[facility] ([facility] [address] POCT MOC392.9 aoPbXsw38.0-51.0UnGuernsey Memorial HospitalComment on above:Performed By: #### [id number] ####[facility] ([facility] [address]KDNI PH7.37Oewsqq0.31-7.41UnGuernsey Memorial Hospital Comment on above:Performed By: #### [id number] ####[facility] ([facility] [address]NEZI PO282 wjEmLnpoqb03-990XxvswplchgGuernsey Memorial HospitalComment on above:Performed By: #### [id number] ####[facility] ([facility] [address]FKRQ SO296 %Hzbdov61-13FecsfmoewsGuernsey Memorial HospitalComment on above:Performed By: #### [id number] ####[facility] ([facility] [address]Yisqhzziw [Moles/Vol]4.7 mmol/LNormal3.5-4.9UnGuernsey Memorial HospitalComment on above:Performed By: #### [id number] ####[facility] ([facility] [place] [address]Qriotq [Moles/Vol]138 mmol/VKtcfpg451.0-146.0UnGuernsey Memorial HospitalComment on above:Performed By: #### [id number] ####[facility] ([facility] [place] [address]DF7 [Moles/Vol]26.0 mmol/LNormal 21.0-29.0UnGuernsey Memorial HospitalComment on above:Performed By: #### [id number] ####[facility] ([facility]))[address] [place], [place] [address]Trfznnw [Mass/Vol]114 mg/eJZbmf88-993LvtwzhcrufGuernsey Memorial HospitalComment on above:Performed By: #### [id number] ####[facility] ([facility] [place] [address]ANA0 (Bld) [Moles/Vol]24.7 mmol/DNjgtvz16.0-28.0UnGuernsey Memorial HospitalComment on above:Performed By: #### [id number] ####[facility] ([facility] [place] [address]Tblmgkjzla (Bld) [Volume fraction]44 %Geoqrx98-45GcrtegwwjaGuernsey Memorial HospitalComment on above: Performed By: #### [id number] ####[facility] ([facility] [place], [place] [address]Bamjbxjdvh (Bld) [Mass/Vol]15.0 g/xTKrdqfk29.0-17.0UnGuernsey Memorial HospitalComment on above:Performed By: #### [id number] ####[facility] ([facility] [place], [place] [address]PUDZ BASE EXCESS0.0 mmol/LNormal-2.0-3.0UnGuernsey Memorial HospitalComment on above: Performed By: #### [id number] ####[facility] (BEAKER)[address] [place], [place] [address]ZIAG IONIZED CALCIUM1.19 mmol/LNormal1.12-1.32UnGuernsey Memorial HospitalComment on above:Performed By: #### [id number] ####[facility] (BEAKER)[address] [place], [place] [address]EEHQ GMA097.9 mmHgLow 41.0-51.0UnGuernsey Memorial HospitalComment on above:Performed By: #### [id number] ####[facility] (BEAKER)[address] [place], [place] [address]WCZS PH 7.94Gpgffe3.31-7.41UnGuernsey Memorial HospitalComment on above:Performed By: #### [id number] ####[facility] (BEAKER)[address] [place], [place] [address]XNNC JA6968 rpQuQtlc45-902CdzurlzmruGuernsey Memorial HospitalComment on above:Performed By: #### [id number] ####[facility] (BEAKER)[address] [place], [place] [address]GOVE SO298 %Rtzznh22-50QibkbigvekGuernsey Memorial Hospital Comment on above:Performed By: #### [id number] ####[facility] (BEAKER)[address] [place], [place] [address]Wymfnihac [Moles/Vol]4.4 mmol/LNormal3.5-4.9 [facility] LimaComment on above:Performed By: #### [id number] ####[facility] (BEAKER)[address] [place], [place] [address]Vtcfpz [Moles/Vol]137 mmol/RPfm698.0-146.0UnGuernsey Memorial HospitalComment on above:Performed By: #### [id number] ####[facility] (BEAKER)[address] [place], [place] [address]XNPGCPDFO, WHOLE BLOODon 53-57-4320Qfdcvryir [Moles/Vol]4.5 mmol/LNormal3.5-5.1UnGuernsey Memorial HospitalComment on above:Performed By: #### POTASSIUM, WHOLE BLOOD ####[facility] RESPIRATORY [id number] [place] [address] USAPROTIME-INRon 78-86-8127CZW IN PPP BY COAGULATION ASSAY 1.12Peix1.90-1.10UnGuernsey Memorial HospitalComment on above:Result Comment: [facility] RECOMMENDED INR FOR WARFARIN THERAPY CONDITION INRPROPHYLAXIS OF VENOUS THROMBOSIS 2-3(HIGH-RISK SURGERY)TREATMENT OF VENOUS THROMBOSIS 2-3TREATMENT OF PULMONARY EMBOLISM 2-3PREVENTION OF SYSTEMIC EMBOLISM: 2-3 ACUTE MYOCARDIAL INFARCTION TISSUE HEART VALVES VALVULAR HEART DISEASE ATRIAL FIBRILLATION RECURRENT SYSTEMIC EMBOLISMMECHANICAL HEART VALVE 2.5-3.5 FROM: ORAL ANTICOAGULANTS. MECHANISM OF ACTION, CLINICAL EFFECTIVENESS, AND OPTIMAL THERAPE UTIC RANGE. CHEST 1995;108:231S-246S.Performed By: #### [id number] ####[facility] (Infrastructure NetworksAKER)[address] [place], [place] [address]HBAFVQCRJFO TIME (PT) IN PPP BY COAGULATION ASSAY15.7 MksyazeNloz95.3-14.8UnGuernsey Memorial HospitalComment on above:Performed By: #### [id number] ####[facility] ([employer] [facility] [place] [place] [address]PEC IN PPP BY COAGULATION ASSAY1.45 High0.90-1.10UnGuernsey Memorial HospitalComment on above:Order Comment: On arrival to [facility] Comment: [facility] RECOMMENDED INR FOR WARFARIN THERAPY CONDITION INRPROPHYLAXIS OF VENOUS THROMBOSIS 2-3(HIGH-RISK SURGERY)TREATMENT OF VENOUS THROMBOSIS 2-3TREATMENT OF PULMONARY EMBOLISM 2-3PREVENTION OF SYSTEMIC EMBOLISM: 2-3 ACUTE MYOCARDIAL INFARCTION TISSUE HEART VALVES VALVULAR HEART DISEASE ATRIAL FIBRILLATION RECURRENT SYSTEMIC EMBOLISMMECHANICAL HEART VALVE 2.5-3.5 FROM: ORAL ANTICOAGULANTS. MECHANISM OF ACTION, CLINICAL EFFECTIVENESS, AND OPTIMAL THERAPE UTIC RANGE. CHEST 1995;108:231S-246S.Performed By: #### [id number] ####[facility] ([employer])[address] [place], [place] [address]XNXDXGVBHHR TIME (PT) IN PPP BY COAGULATION ASSAY17.5 GrglulyJtsl81.3-14.8UnGuernsey Memorial HospitalComment on above:Order Comment: [facility]formed By: #### [id number] ####[facility] ([employer])[address] [place], [place] [address]LFZ IN PPP BY COAGULATION ASSAY0.22Oqflym4.90-1.10UnGu[facility]sey Memorial Hospital Comment on above:Result Comment: [facility] RECOMMENDED INR FOR WARFARIN THERAPY CONDITION INRPROPHYLAXIS OF VENOUS THROMBOSIS 2-3(HIGH-RISK SURGERY)TREATMENT OF VENOUS THROMBOSIS 2-3TREATMENT OF PULMONARY EMBOLISM 2-3PREVENTION OF SYSTEMIC EMBOLISM: 2-3 ACUTE MYOCARDIAL INFARCTION TISSUE HEART VALVES VALVULAR HEART DISEASE ATRIAL FIBRILLATION RECURRENT SYSTEMIC EMBOLISMMECHANICAL HEART VALVE 2.5-3.5 FROM: ORAL ANTICOAGULANTS. MECHANISM OF ACTION, CLINICAL EFFECTIVENESS, AND OPTIMAL THERAPE UTIC RANGE. CHEST 1995;108:231S-246S.Performed By: #### [id number] ####[facility] ([facility]))[address] [place], [place] [address]VOBZFNNJNLP TIME (PT) IN PPP BY COAGULATION ASSAY13.0 ZvavvslFjqlfi13.3-14.8UnGuernsey Memorial HospitalComment on above:Performed By: #### [id number] ####[facility] ([facility]))[address] [place], [place] [address]AMOEWC, WHOLE BLOODon 08-16-2024 SODIUM, WHOLE WRIRL237Gjnvlc622-280JptefeydotGuernsey Memorial HospitalComment on above:Performed By: #### SODIUM, WHOLE BLOOD ####[facility] RESPIRATORY [id number] [place] [address] NDA93yz 07-60-345291HogvjkBharzywvad [facility]30NormalUniversity [facility] Hospital30NormalUniversity [facility]30NormalUniversity Elyria Memorial HospitalANESon 42-60-8055VMRJVofexrUaecsricuz of [facility] Medical CenterANTI-XA (HEPARIN LEVEL)on 11-81-4930ORPRLSW UNFRACTIONATED (U/ML) IN PPP BY CHROMOGENIC METHOD0.64 IU/mL Normal0.3-0.7UnGuernsey Memorial HospitalComment on above:Order Comment: Check anti-Xa level every 6 hours while on heparin infusion, or per protocol. Result Comment: Rivaroxaban and Apixaban will interfere with the anti Xa assay used to monitor UFH and LMWH.Performed By: #### [id number] ####[facility] ([facility]))[address] [place], [place] [address]QKSNKHA UNFRACTIONATED (U/ML) IN PPP BY CHROMOGENIC METHOD0.82 IU/mLHigh0.3-0.7UnGuernsey Memorial Hospital Comment on above:Order Comment: Check anti-Xa level every 6 hours while on heparin infusion, or per protocol.Result Comment: Rivaroxaban and Apixaban will interfere with the anti Xa assay used to monitor UFH and LMWH.Performed By: #### [id number] ####[facility] ([facility]))[address] [place], [place] [address]XDCJZCD UNFRACTIONATED (U/ML) IN PPP BY CHROMOGENIC METHOD0.68 IU/mLNormal0.3-0.7 [facility] Hospital LimaComment on above:Result Comment: Rivaroxaban and Apixaban will interfere with the anti Xa assay used to monitor UFH and LMWH. Performed By: #### [id number] ####[facility] ([facility]))[address] [place], [place] [address]RXHVEKO UNFRACTIONATED (U/ML) IN PPP BY CHROMOGENIC METHOD 0.71 IU/mLHigh0.3-0.7UnGuernsey Memorial HospitalComment on above:Order Comment: Check anti-Xa level every 6 hours while on heparin infusion, or per protocol.Result Comment: Rivaroxaban and Apixaban will interfere with the anti Xa assay used to monitor UFH and LMWH.Performed By: #### [id number] ####[facility] ([facility]))[address] [place], [place] [address]HAHrw 08-15-2024 Erythrocyte distribution width (RBC) [Ratio]13.1 %Lmrvyf48.5-15.0UnGuernsey Memorial HospitalComment on above:Performed By: #### [id number] ####[facility] ([facility]))[address] [place], [place] [address]ZYWDLCZQWYQ MEAN CORPUSCULAR HEMOGLOBIN CONCENTRATION (G/DL) BY IBIKKTJBE43.3 g/gJWqlugt16.0-35.0 [facility] LimaComment on above:Performed By: #### [id number] ####[facility] ([facility]))[address] [place], [place] [address]Wpdppzzvhx (Bld) [Volume fraction]46.8 %Qhnxma97.0-50.0UnGuernsey Memorial Hospital Comment on above:Performed By: #### [id number] ####[facility] ([facility])[address] [place] [address]Ndyxnpmwax (Bld) [Mass/Vol]15.6 g/eGZvikms48.0-17.0 [facility] Hospital LimaComment on above:Performed By: #### [id number] ####[facility] ([facility]))[address] [place] [address]NCD (RBC) [Entitic mass]29.8 dyFcslqg33.0-33.0UnGuernsey Memorial HospitalComment on above:Performed By: #### [id number] ####[facility] ([facility]))[address] [place] [address]QPY (RBC) [Entitic vol]89.5 tGAhplnx90.0-98.0UnGuernsey Memorial HospitalComment on above:Performed By: #### [id number] ####[facility] ([facility]))[address] [place] [address]IAFOWRDUN (10*3/UL) IN BLOOD AUTOMATED [id number] 10*3/nPDtnuha703-519RnpuoqugafGuernsey Memorial Hospital Comment on above:Performed By: #### [id number] ####[facility] ([facility]))[address] [place] [address]AWX (Bld) [#/Vol]5.23 10*6/uLNormal4.20-5.70 [facility] LimaComment on above:Performed By: #### [id number] ####[facility] ([facility]))[address] [place] [address]LMQ (Bld) [#/Vol]6.03 10*3/uLNormal4.00-10.60UnGuernsey Memorial HospitalComment on above:Performed By: #### [id number] ####[facility] ([facility])[address] [place] [address]NO ABDOMEN PELVIS W IV CONTRASTon 62-62-4951IF ABDOMEN PELVIS W IV CONTRASTNormalUniversity Elyria Memorial HospitalCT CHEST W IV CONTRASTon 03-85-7933BX CHEST W IV CONTRASTNormalUniversity [facility] Hospital Documentationon 09-41-1871VqdseuiobxulyGoeyryJcopujxmwh of [facility] PROTIME-INRon 02-05-0174NVO IN PPP BY COAGULATION ASSAY1.81Pvpiic3.90-1.10 [facility] LimaComment on above:Result Comment: [facility] RECOMMENDED INR FOR WARFARIN THERAPY CONDITION INRPROPHYLAXIS OF VENOUS THROMBOSIS 2-3(HIGH-RISK SURGERY)TREATMENT OF VENOUS THROMBOSIS 2-3TREATMENT OF PULMONARY EMBOLISM 2-3PREVENTION OF SYSTEMIC EMBOLISM: 2-3 ACUTE MYOCARDIAL INFARCTION TISSUE HEART VALVES VALVULAR HEART DISEASE ATRIAL FIBRILLATION RECURRENT SYSTEMIC EMBOLISMMECHANICAL HEART VALVE 2.5-3.5 FROM: ORAL ANTICOAGULANTS. MECHANISM OF ACTION, CLINICAL EFFECTIVENESS, AND OPTIMAL THERAPE UTIC RANGE. CHEST 1995;108:231S-246S.Performed By: #### [id number] ####[facility] (BEAKER)[address] [place], [place] [address]XLGHKLECUUQ TIME (PT) IN PPP BY COAGULATION ASSAY13.8 ZjrkxdjOstwwf94.3-14.8UnGuernsey Memorial HospitalComment on above:Performed By: #### [id number] ####[facility] (BEAKER)[address] [place], [place] [address]em 64-22-583047JciqfdMeseapaalw of [facility] Tnviqa33NzcoojNeysvpsaerCleveland Clinic Union HospitalANESon 04-25-95[address]YZQOVnjpggWqethvcpjb of [facility] Medical CenterANTI-XA (HEPARIN LEVEL)on 46-95-4694HRQLDJT UNFRACTIONATED (U/ML) IN PPP BY CHROMOGENIC METHOD0.61 IU/mL Normal0.3-0.7UnGuernsey Memorial HospitalComment on above:Order Comment: Check anti-Xa level every 6 hours while on heparin infusion, or per protocol. Result Comment: Rivaroxaban and Apixaban will interfere with the anti Xa assay used to monitor UFH and LMWH.Performed By: #### [id number] ####[facility] ([facility] [place], [place] [address]EBPLel 32-02-4547XWBVEZMMQ PARTIAL THROMBOPLASTIN TIME IN PPP BY COAGULATION ASSAY77.7 UjhtigwWzvo46.0-35.0 [facility] LimaComment on above:Result Comment: Clinical significance of the APTT is questionable in the presence of heparin.Performed By: #### [id number] ####[facility] ([facility] [place] [address] BASIC METABOLIC PANELon 20-83-4530Jhlfn gap [Moles/Vol]6 mmol/LLow7-20UnGuernsey Memorial HospitalComment on above:Performed By: #### [id number] ####[facility] ([facility] [place], [place] [address]Dyisrpw [Mass/Vol]9.0 mg/dLNormal8.6-10.3UnGuernsey Memorial HospitalComment on above:Performed By: #### [id number] ####[facility] ([facility] [place] [address] Chloride [Moles/Vol]104 mmol/PDvervo75-864LkejxdgvgrGuernsey Memorial Hospital Comment on above:Performed By: #### [id number] ####[facility] (AKER)[address] [place], [place] [address]NM1 [Moles/Vol]32 mmol/XPucn92-95HscfiqfbtsGuernsey Memorial HospitalComment on above:Performed By: #### [id number] ####[facility] ([facility] [place] [address]Grzyigdvwo [Mass/Vol]0.91 mg/dL Normal0.70-1.30UnGuernsey Memorial HospitalComment on above:Performed By: #### [id number] ####[facility] ([facility] [address] GLOMERULAR FILTRATION RATE ML/MIN/1.73 SQ M.GFAEHASYB13.4 mL/min/1.73m*2Normal >60.0UnGuernsey Memorial HospitalComment on above:Result Comment: [facility]???s estimated glomerular filtration rate (eG FR) will no longer include consideration of race [...] potential consequences that do not disproportionately affect anyone group of individuals. Performed By: #### [id number] ####[facility] ([facility] [place] [address]Pttvted [Mass/Vol]90 mg/mDYfevir15-767TiepgixxwfGuernsey Memorial HospitalComment on above:Performed By: #### [id number] ####[facility] ([facility] [place] [address]Nuwszawni [Moles/Vol]4.4 mmol/LNormal 3.5-5.1UnGuernsey Memorial HospitalComment on above:Performed By: #### [id number] ####[facility] ([facility]))[address] [place] [address]Jrqsbq [Moles/Vol]138 mmol/SJisuwb864-793YdsqlsxflzGuernsey Memorial HospitalComment on above:Performed By: #### [id number] ####[facility] ([facility] [place] [address]Xrdz nitrogen [Mass/Vol]16 mg/dLNormal7-25UnGuernsey Memorial HospitalComment on above:Performed By: #### [id number] ####[facility] ([facility] [place], [place] [address]LAWB NITROGEN/CREATININE (MASS RATIO) IN SER/PLAS17.6NormalUniversCleveland Clinic Union HospitalComment on above: Performed By: #### [id number] ####[facility] ([facility] [place], [place] [address]OKZ WITH AUTO DIFFERENTIALon 66-36-1879Qyzxwopse (Bld) [#/Vol]0.03 10*3/uLNormal0.00-0.20UnGuernsey Memorial HospitalComment on above: Performed By: #### [id number] ####[facility] ([facility] [place], [place] [address]Twgpmftxs/100 WBC (Bld)0.7 %Normal0.0-1.0UnGuernsey Memorial HospitalComment on above:Performed By: #### [id number] ####[facility] ([facility] [facility] [place] [address]Jsxyyjbewop (Bld) [#/Vol]0.13 10*3/uL Normal0.00-0.50UnGuernsey Memorial HospitalComment on above:Performed By: #### [id number] ####[facility] ([facility] [place] [address] Eosinophils/100 WBC (Bld)3.1 %Normal0.0-6.0UnGuernsey Memorial Hospital Comment on above:Performed By: #### [id number] ####[facility] ([facility])[address] [place], [place] [address]Plpxqgmylgp distribution width (RBC) [Ratio]12.7 % Yborka88.5-15.0UnGuernsey Memorial HospitalComment on above:Performed By: #### [id number] ####[facility] ([facility])[address] [place] [address] ERYTHROCYTE MEAN CORPUSCULAR HEMOGLOBIN CONCENTRATION (G/DL) BY UNTRJOFLW25.9 g/jYMzqgij34.0-35.0UnGuernsey Memorial HospitalComment on above:Performed By: #### [id number] ####[facility] ([facility])[address] [place], [place] [address]Wcueioyeof (Bld) [Volume fraction]46.3 %Pjrsrq89.0-50.0UnGuernsey Memorial HospitalComment on above:Performed By: #### [id number] ####[facility] ([facility] [place], [place] [address]Kbgbncktgg (Bld) [Mass/Vol]15.7 g/dL Btxnur82.0-17.0UnGuernsey Memorial HospitalComment on above:Performed By: #### [id number] ####[facility] ([facility] [place] [address] Immature granulocytes (Bld) [#/Vol]0.02 10*3/uLNormal0.00-0.20UnGuernsey Memorial HospitalComment on above:Performed By: #### [id number] ####[facility] ([facility])[address] [facility] [place] [address]Ffdibnzv granulocytes/100 WBC (Bld)0.5 %Normal0.0-1.0UnGuernsey Memorial HospitalComment on above: Performed By: #### [id number] ####[facility] ([facility])[address] [place], [place] [address]Ikztokcxvgz (Bld) [#/Vol]1.03 10*3/uLLow1.20-4.00UnGuernsey Memorial HospitalComment on above:Performed By: #### [id number] ####[facility] ([facility])[address] [facility] [place] [address]Qbuqsxyylnj/100 WBC (Bld) 24.9 %Swefmo74.0-45.0UnGuernsey Memorial HospitalComment on above: Performed By: #### [id number] ####[facility] ([facility])[address] [place], [place] [address]CEV (RBC) [Entitic mass]30.6 duIssuio34.0-33.0UnGuernsey Memorial HospitalComment on above:Performed By: #### [id number] ####[facility] ([facility])[address] [place] [address]KYP (RBC) [Entitic vol] 90.3 kZDndpyv50.0-98.0UnGuernsey Memorial HospitalComment on above: Performed By: #### [id number] ####[facility] ([facility] [facility] [place], [place] [address]Rzgsuxosx (Bld) [#/Vol]0.41 10*3/uLNormal0.10-1.00UnGuernsey Memorial HospitalComment on above:Performed By: #### [id number] ####[facility] ([facility] [facility] [place], [place] [address]Bisjfqplr/100 WBC (Bld) 9.9 %Normal5.0-12.0UnGuernsey Memorial HospitalComment on above:Performed By: #### [id number] ####[facility] ([facility])[address] [facility] [place], [place] [address]Zjwlfionpri (Bld) [#/Vol]2.51 10*3/uLNormal1.60-7.60UnGuernsey Memorial HospitalComment on above:Performed By: #### [id number] ####[facility] ([facility] [place], [place] [address]Dnattmakaye/100 WBC (Bld)60.9 %Normal 40.0-72.0UnGuernsey Memorial HospitalComment on above:Performed By: #### [id number] ####[facility] ([facility] [facility] [place], [place] [address]NHWM (PER 100 WBCS) BY AUTOMATED COUNT0.0 %Qvcccw5LkuadkqmhuGuernsey Memorial Hospital Comment on above:Performed By: #### [id number] ####[facility] ([facility] [place], [place] [address]HYMOXIIQT (10*3/UL) IN BLOOD AUTOMATED MEZSD143 10*3/gJVbfqwx161-237GzuxihfnzvGuernsey Memorial HospitalComment on above: Performed By: #### [id number] ####[facility] ([facility] [place] [address]PJH (Bld) [#/Vol]5.13 10*6/uLNormal4.20-5.70UnGuernsey Memorial HospitalComment on above:Performed By: #### [id number] ####[facility] ([facility] [address]NZN (Bld) [#/Vol]4.13 10*3/uLNormal4.00-10.60UnGuernsey Memorial HospitalComment on above: Performed By: #### [id number] ####[facility] ([facility] [place] [address]TEFCYXJhg 42-88-5783DNKGSEPLoqcvuLcqsuqjrcn of [facility] Medical CenterHEMOGLOBIN A1Con 98-04-6997Ihjnsaq [Mass/Vol]114 mg/dLNormalUniversCleveland Clinic Union HospitalComment on above:Performed By: #### [id number] ####[facility] ([facility] [address]ZhI0a (Bld) [Mass fraction]5.6 %Normal4.0-6.0UnGuernsey Memorial HospitalComment on above: Performed By: #### [id number] ####[facility] ([facility] [place] [address]OVsl 92-66-7860DGCzciqaLiiwpbkmpy of [facility] Medical CenterHPNoal [facility]red Hospital LimaHPNormalUniUniversity Hospitals Geneva [facility] Center LIPID PANELon 81-00-4367TRLG/HDL3.7 mg/dLNormalUniversCleveland Clinic Union HospitalComment on above:Performed By: #### [id number] ####[facility] ([facility] [place] [address]Qhogabgzbhx [Mass/Vol]157 mg/dLNormal 120-200UnGuernsey Memorial HospitalComment on above:Performed By: #### [id number] ####[facility] ([facility] [facility] [place], [place] [address]Ybqeyeyeq [Mass/Vol]76 mg/dLNormal<150UnGuernsey Memorial HospitalComment on above: Result Comment: TRIGLYCERIDE REFERENCE RANGE:20 YEARS AND OLDER CARDIOVASCULAR RISKLESS THAN 150 mg/dL LOW [id number] TO 199 mg/dL BORDERLINE FYDD818 mg/dL AND GREATER HIGH RISKPerformed By: #### [id number] ####[facility] ([facility])[address] [facility] [place], [place] [address]Krcdmhhle [Mass/Vol]99 mg/dLNormal0-160UnGuernsey Memorial HospitalComment on above:Performed By: #### [id number] ####[facility] ([facility])[address] [facility] [place], [place] [address]Vqqnzassh [Mass/Vol]43 mg/sVTrekce48-93VayidtenbxGuernsey Memorial HospitalComment on above:Performed By: #### [id number] ####[facility] ([facility])[address] [place] [address] NON HDL CHOL. (LDL+VLDL)114NormalUniversCleveland Clinic Union HospitalComment on above:Performed By: #### [id number] ####[facility] ([facility])[address] [facility] [place] [place], [place] [address]IVFQM VLDL-C15 mg/dLNormal0-40UnGuernsey Memorial HospitalComment on above:Performed By: #### [id number] ####[facility] ([facility])[address] [facility] [place] [place], [place] [address]VDPVHDMMMyd 24-06-6030Ultieaejh [Mass/Vol]2.1 mg/dLNormal1.9-2.7UnGuernsey Memorial HospitalComment on above:Performed By: #### [id number] ####[facility] ([facility])[address] [facility] [place] [place], [place] [address]ZOYSZDWUoz 14-20-0907PCAHRRTNMavtlcPoosoxhnpr of [facility] Medical CenterPHOSPHORUSon 32-86-3490Xsjhauvko [Mass/Vol]2.9 mg/dLNormal2.5-5.0 [facility]red Hospital LimaComment on above:Performed By: #### [id number] ####[facility] ([facility])[address] [facility] [place] [address]LULFEDS-AGDeo 55-94-4740JAI IN PPP BY COAGULATION ASSAY1.25Fuqqgc6.90-1.10UnGuernsey Memorial HospitalComment on above:Result Comment: ACCCP RECOMMENDED INR FOR WARFARIN THERAPY CONDITION INRPROPHYLAXIS OF VENOUS THROMBOSIS 2-3(HIGH-RISK SURGERY)TREATMENT OF VENOUS THROMBOSIS 2-3TREATMENT OF PULMONARY EMBOLISM 2-3PREVENTION OF SYSTEMIC EMBOLISM: 2-3 ACUTE MYOCARDIAL INFARCTION TISSUE HEART VALVES VALVULAR HEART DISEASE ATRIAL FIBRILLATION RECURRENT SYSTEMIC EMBOLISMMECHANICAL HEART VALVE 2.5-3.5 FROM: ORAL ANTICOAGULANTS. MECHANISM OF ACTION, CLINICAL EFFECTIVENESS, AND OPTIMAL THERAPE UTIC RANGE. CHEST 1995;108:231S-246S.Performed By: #### [id number] ####[facility] ([facility])[address] [place], [place] [address]IESKBJZDWKP TIME (PT) IN PPP BY COAGULATION ASSAY13.5 PeflwgwTlugpu46.3-14.8UnGuernsey Memorial HospitalComment on above:Performed By: #### [id number] ####[facility] ([facility])[address] [facility] [place] [address]RYT, SCREENINGon 46-03-3876EZTTMDSN SPECIFIC AG (NG/ML) IN SER/PLAS0.9 ng/mLNormal0.4-4UnGuernsey Memorial HospitalComment on above:Performed By: #### [id number] ####[facility] ([facility]))[address] [place], [place] [address]DCJbj 23-54-4742RSOCCGBTQDV (MIU/L) IN SER/PLAS BY DETECTION LIMIT <= 0.05 MIU/L5.34 mIU/LNormal0.34-5.60UnGuernsey Memorial HospitalComment on above:Performed By: #### [id number] ####[facility] ([facility]))[address] [place], [place] [address]HFGP AND SCREENon 73-07-0118VM SCREENNegativeNoUNC Health RexniUniversity Hospitals Geneva Medical CenterComment on above:Performed By: #### [id number] ####[facility] BLOOD BANK,ABO group Nom (Bld)ONormal [facility]red Hospital LimaComment on above:Performed By: #### [id number] ####[facility] BLOOD BANK,RH TYPE IN BLOODNegativeCleveland Clinic Akron GeneralComdetroit receiving hospital on above:Performed By: #### [id number] ####[facility] BLOOD B[facility],URINALYSIS on 27-09-9471RYWQBSYMN, TOTAL PRESENCE IN URINENegativeNormalNegativeUnGuernsey Memorial HospitalComment on above:Order Comment: Microscopics not performed on urines with negative chemical reactions unless requested on original order.Performed By: #### [id number] ####[facility] ([facility]))[address], [place] [address]Gjmzxuu (U)ClearNormalClearUnGuernsey Memorial HospitalComment on above:Order Comment: Microscopics not performed on urines with negative chemical reactions unless requested on original order. Performed By: #### [id number] ####[facility] ([facility]))[address] [place], [place] [address]Sikbc (U)Light-YellowNormalColorless, Yellow, Light-Yellow Kindred Hospital LimaComment on above:Order Comment: Microscopics not performed on urines with negative chemical reactions unless requested on original order.Performed By: #### [id number] ####[facility] ([facility]))[address] [facility] [place], [place] [address]GXDVRMT (MG/DL) IN URINENormalNormalNormal [facility]red Hospital LimaComment on above:Order Comment: Microscopics not performed on urines with negative chemical reactions unless requested on original order.Performed By: #### [id number] ####[facility] ([facility]))[address] [place], [place] [address]XTSUXLSMJG PRESENCE IN URINENegativeNormalNegative [facility]red Hospital LimaComment on above:Order Comment: Microscopics not performed on urines with negative chemical reactions unless requested on original order.Performed By: #### [id number] ####[facility] ([facility]))[address]OS[facility] [place], [place] [address]Tsobqyg Ql (U)NegativeNormalNegativeUnGuernsey Memorial HospitalComment on above:Order Comment: Microscopics not performed on urines with negative chemical reactions unless requested on original order. Performed By: #### [id number] ####[facility] ([facility]))[address] [facility] [place], [place] [address]CBGUHBZWY ESTERASE PRESENCE IN URINE BY TEST STRIPNegative NormalNegativeUnGuernsey Memorial HospitalComment on above:Order Comment: Microscopics not performed on urines with negative chemical reactions unless requested on original order.Performed By: #### [id number] ####[facility] ([facility]))[address] [place], [place] [address]AYVGYRH PRESENCE IN URINENegative NormalNegativeUnGuernsey Memorial HospitalComment on above:Order Comment: Microscopics not performed on urines with negative chemical reactions unless requested on original order.Performed By: #### [id number] ####[facility] ([facility]))[address] [place], [place] [address]uQ (U)6.5 [pH]Normal5.0-8.0UnGuernsey Memorial HospitalComment on above:Order Comment: Microscopics not performed on urines with negative chemical reactions unless requested on original order.Performed By: #### [id number] ####[facility] (BE[facility]ER)[address] [facility] [place], [place] [address]Fjyixho (U) [Mass/Vol]NegativeNormalNegative Kindred Hospital LimaComment on above:Order Comment: Microscopics not performed on urines with negative chemical reactions unless requested on original order.Performed By: #### [id number] ####[facility] ([facility]))[address] [facility] [place] [place], [place] [address]Wkmzcufb gravity (U) [Rel density]1.043High 1.010-1.030UnGuernsey Memorial HospitalComment on above:Order Comment: Microscopics not performed on urines with negative chemical reactions unless requested on original order.Performed By: #### [id number] ####[facility] ([facility]))[address] [facility] [place] [place], [place] [address]NQEMVXRSMJJZ (MG/DL) IN URINENormal NormalNormalUniversCleveland Clinic Union HospitalComment on above:Order Comment: Microscopics not performed on urines with negative chemical reactions unless requested on original order.Performed By: #### [id number] ####[facility] ([facility]))[address] [facility] [place] [address]Nwenle Onlyon 77-95-8220Vblnix Only NormalUnGuernsey Memorial HospitalOrders Onlyon 78-84-8385Ipqduh Only NormalUnGuernsey Memorial HospitalCA ECHO DOPPLER COMPLETEon 07-22-[address] [address] Cardiology Report Signed Patient: Emma James MR#: [id number] : 1950 Acct:[id number] Age/Sex: 73 / M ADM Date: 07/22/24 Loc: CARD Attending Dr: DENNIS IRIZARRY Ordering Physician: DENNIS IRIZARRY Date of Service: 07/22/24 Procedure(s): CA echo doppler complete Accession Number(s): [id number] cc: DENNIS IRIZARRY Patient Name: EMMA JAMES MR#: [id number] : 1950 Exam Date: 07/22/2024 Ordering Doctor: [...] Mcqueen M.D. 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 REASON FOR EXAM: [...] report is generated using voice recognition reporting (Pocket Conciergee). On occasion, Powerscribe erroneously drops words from the report or replaces the spoken word with a similar sounding word. Please call with any questions/concerns regarding the report. Dictated and transcribed 07/15/2024/tm This report has been electronically signed and approved by the interpreting radiologist.NormalNot AvailableXR Chest 2 Viewson 68-04-6214FTRT: XR Chest, Two Views. REASON FOR EXAM: [...] questions/concerns regarding the report. Dictated and transcribed 07/15/2024tm This report has been electronically signed and approved by the interpreting radiologist. Lincoln Palacios MD - 07/15/2024 EXAM: XR Chest, Two [...] signed and approved by the interpreting radiologist. [facility] HealthRadiology Study observation (narrative)[facility] HealthXR Chest 2 ViewsOrdered By: Lincoln Devine on 22-01-0737BBDM XDC Work Phone: MR KNEE RIGHT WO IV CONTRASTon 45-34-1887TO KNEE RIGHT WO IV CONTRASTExam: MR KNEE RIGHT WO IV CONTRAST History: [...] of the medial meniscus including horizontal tear ofthe posterior horn and flap tear of the [...] postsurgical changes/scarring. Patellofemoral osteoarthritis. ELECTRONICALLY SIGNED BY: Uli Buckley AvailableNo Panel Informationon 54-87-7920XhfgmCelso Montano NP 04/09/2024 12:42 PM L Inj/Asp: R knee on 04/09/2024 12:39 PM Indications: pain Details: 21 G needle, anterolateral approach Medications: 40 mg methylPREDNISolone acetate 40 MG/ML Outcome: tolerated well, no immediate complications Site cleaned with isopropyl alcohol Procedure, treatment alternatives, risks and benefits explained, specific risks discussed. Consent was given by the patient. [facility] HospitalXR Knee - right 1 or 2 Viewson 01-41-3245Cagppdr Result: 04/09/2024: AP and lateral of right [...] No acute bony process noted. Celso Montano APRN-PROJECT MANAGEMENT PROFESSIONAL [facility] HealthcareRadiology Study observation (narrative)[facility] HealthcareCBC panel Auto (Bld)on 24-78-6138Wnfnrmkmfga distribution width (RBC) [Ratio]13.6 %11.6 - 15.4 %[facility] HealthcareHematocrit (Bld) [Volume fraction]45.8 %37.5 - 51.0 %[facility] HealthcareHemoglobin (Bld) [Mass/Vol]15.3 g/dL13.0 - 17.7 g/dLCrittenton Behavioral HealthMCH (RBC) [Entitic mass]29.9 pg26.6 - 33.0 pgNOMO Healthcare MCHC (RBC) [Mass/Vol]33.4 g/dL31.5 - 35.7 g/dLCrittenton Behavioral HealthMCV (RBC) [Entitic vol]90 fL79 - 97 fLUINTAH BASIN MEDICAL CENTER HealthcarePlatelets (Bld) [#/Vol]197 10*3/[facility] HealthcareRBC (Bld) [#/Vol]5.11 10*6/[facility] HospitalWBC (Bld) [#/Vol]5.6 10*3/[facility] HealthcareLaboratory - Chemistry and Chemistry - challengeon 14-82-9811Oslqaye [Mass/Vol]4.3 g/dL3.8 - 4.8 g/dLNOMO HealthcareALP [Catalytic activity/Vol]85 U/LNOMS HealthcareALT [Catalytic activity/Vol]19 U/LNOMS HealthcareAST [Catalytic activity/Vol]21 U/LNOMS HealthcareBilirubin [Mass/Vol] 0.5 mg/dL0.0 - 1.2 mg/dLNOMO HealthcareCalcium [Mass/Vol]9.3 mg/dL8.6 - 10.2 mg/dLNOMO HealthcareChloride [Moles/Vol]102 mmol/L96 - 106 mmol/LNOMS Healthcare CO2 [Moles/Vol]26 mmol/L20 - 29 mmol/LNOMS HealthcareCreatinine [Mass/Vol]0.93 mg/dL0.76 - 1.27 mg/dLNOMS HealthcareFree PSA [Mass/Vol]0.2 ng/mLN/ANOMS HealthcareComment on above:Reginaldo ECLIA methodology.Free PSA/Total PSA [Mass fraction]50 %NOMS HealthcareComment on above:The table below lists the probability of prostate cancer for men [...] sq M.predicted among non-blacks MDRD (S/P/Bld) [Vol rate/Area]86 mL/min/{1.73_m2}59 - PINF mL/min/1.73NOMS HealthcareGlobulin (S) [Mass/Vol]2.3 g/dL1.5 - 4.5 g/dLNOMS HealthcareGlucose [Mass/Vol]100 mg/jZLwlg39 - 99 mg/dL N[facility]S HealthcarePotassium [Moles/Vol]4.9 mmol/L3.5 - 5.2 mmol/LNOMS Healthcare Prostate specific Ag [Mass/Vol]0.4 ng/mL0.0 - 4.0 ng/mLNOMS HealthcareComment on above:Reginaldo ECLIA methodology. According to the [place] [employer], Serum PSA should decrease and [...] presence or absence of malignant disease. Protein [Mass/Vol]6.6 g/dL6.0 - 8.5 g/dLNOMS HealthcareSodium [Moles/Vol]140 mmol/L134 - 144 mmol/LNOMS HealthcareUrea nitrogen [Mass/Vol]21 mg/dL8 - 27 mg/dLNOMS HealthcareUrea nitrogen/Creatinine [Mass ratio]23 mg/mg10 - 24NOMO HealthcareLipid 1996 panelon 55-10-9940Xsbafzhjftg [Mass/Vol]202 mg/cBUayv938 - 199 mg/dLCrittenton Behavioral HealthCholesterol in HDL [Mass/Vol]42 mg/dL39 - PINF mg/dLCrittenton Behavioral HealthCholesterol in LDL [Mass/Vol]115 mg/dLHigh0 - 99 mg/dLCrittenton Behavioral Health Cholesterol in VLDL [Mass/Vol]45 mg/dLHigh5 - 40 mg/dLCrittenton Behavioral Health Triglyceride [Mass/Vol]256 mg/dLHigh0 - 149 mg/dLNOSaint Francis Medical CenterNo Panel Informationon 02-41-7611Gqjxheezbtzeot and review of laboratory resultsAbnormal NOMS HealthcarePerformed at: Lab[address] [id number] Diplomatic Interpreter/Translator: Tim Tate PhD, Phone: [phone] Langone Health OPERATIVE NOTEon 00-33-7502AOHHIUSXB NOTEOPERATIVE NOTEOPERATION DATE: 5-94-57ZRMCMKDTPH:General.PREOPERATIVE DIAGNOSIS: Bilateral inguinal hernias, left worse than right.POSTOPERATIVE DIAGNOSIS:Same with Path pending.PROCEDURE NAME:Bilateral inguinal herniorrhaphy with Bassini repair and meshoverlay.ESTIMATED BLOOD LOSS: Less than 10 mL.COMPLICATIONS: None.DISPOSITION: To the Recovery Room in stable condition.PROCEDURE: The patient wasbrought to the Operative Suite where he was placedin the supine position. General anesthesia by LMAis induced. He was thenprepped and draped in the usual fashion for this procedure. A modest left groinincision was made and carried sharply down to the fascia. The fascia waselevated over the printing machine operator's finger and divided. The external abdominis obliquefibers were reflected caudad and cephalad. Thecord was circumferentiallydissected and the cremasteric fibers taken down. A Redford was passed aroundand it was retracted to the caudal aspect of the incision. Dissecting themedial aspect of the cord at the internal ring, a hernia sac was identified andit was dissected away from cord structures. Im mediately adjacent, cord lipomawas also removed. The floor of the canal was now examined. The hernia sac wasdissected away from the cord structures, clamped and transected. The end wascut off and submitted to Pathology. The floor of the canal was now carefullyexamined and the transversalis fascia beginning at the conjoined tendon wasapproximated to Poupart's fascia in a medial and lateral fashionwith suturesof #0 Tycron x5. After completion, a [...] all. Next, attention was turned to the rightinguinalregion where a second hernia was noted. A symmetrical incision wasmade in this site as well and theincision carried sharply down. The fascia wasencountered and the external abdominal oblique fibers were longitudinallyincised and reflected caudad and cephalad. The cord was dissected free and aPenrose passed around. It was pulled caudad and the cremasteric fibers takendown over the printing machine operator's hand. The floor was now carefully examined and cleanedof areolar connective tissue. The floor of the canal was seen to be quite weak.The shelving portion of Poupart's ligament was approximated to thetransv ersalis fascia beginning at the conjoined tendon and ending laterally.After the placement of five interrupted sutures, the floor was reformed. Thecord was then returned and the mesh was sewn into place in the floor of thecanal with four sutures of 3-0 Vicryl x4. The cord was returned to it's normalanatomic position and the Ayo's fascia was closed over as was the skin.Sterile dressing is placedover. The patient tolerated the procedure well. Hewas taken to the Recovery Room in stable condition.[facility] Signed and Approved by: DR SONY LLOYD01/19/2018 10:51:00[facility] READ - NCon 63-55-1598YWGP READ - NCDATE OF EXAM: Jul 17 2017 2:58PMCLINICAL HISTORY/ Name: JAMEY JAMESTUDY:OVER READ - NC; 07/17/2017 2:58 pmINDICATION:score. Hypercholesterolemia. Screening.COMPARISON:None. CLINICIAN:DENNIS LINK:Contiguous unenhanced axial images were obtained [...] findings.This interpretation, provided by the radiologists of [facility], excludes evaluation of the cardiovascular system, which iscovered in a separate report issued by the ordering cardiologists. The radiologists of [facility] have no responsibilityfor evaluating the structures of the cardiovascular system.NormalEMPrisma Health Baptist Parkridge HospitalC-Reactive Proteinon 03-13-2017C reactive protein (CRP)0.1 mg/dLNormal<0.9CCleveland Clinic Euclid HospitalComment on above:Performed By: #### WSR, CMP, CRP, RF, CCP ####[facility] [address] [place], [place] [phone] Antibody, IgGon 79-03-0614GMN Antibody, IgG<15Normal<20[facility] on above:Result Comment: < 20 units: Treunspk39-15 units: Weak Mauwvdsa97-41 units: Moderate Positive>60 units: Strong PositivePerformed By: #### WSR, CMP, CRP, RF, CCP ####[facility] [address] [place], [place] [phone] 43-69-5546QGELIoktkx Visit (RHEUMN) --------EMMA JAMES ([id number]) 1950 MDate Time Provider Aaumrylpsr15/23/17 1:25 PM DONTAE RUSSELL (MATT) ANTHONY During your visit today, we recorded the following information about you: Temperature Pulse Blood pressure Weight 97.6 degrees 71/minute 119/80 93.3 kg Height 1.791 Bony Dasilva MD 03/19/2017 1:41 PM AddendumVan Wert County Hospital Orthopaedic ANDamp; Rheumatologic InstituteDepartment of Rheumatic and Immunologic DiseasesThis consult was requested by the doctor listed below for an opinion regardingthe chief complaint listed below, and my final recommendations will becommunicated to the requesting health care provider by way of the sharedmedical record for internal providers or letter via the [facility] for externalproviders.Consulting Physician: SelfSUBJECTIVE:CC: Joint painHistory of [...] [address], 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 His hand pain in particular has prevented him frombeing able to do some of his normal activities. He is still able to do finetasks. He does wake up with some morning stiffness but most of his pain occurswhile working and after a day at work. The pain inhis hands does primarilyaffect his MCPs and PIPs, [...] in joints, Back painSKIN: Hair lossNEUROLOGIC: Numbness ortinglingALLERGIC/ IMMUNOLOGIC: Allergies (other than medications)Otherwise, a complete 14 point ROSwas obtained and was negative except forabove.Past Medical History:PAST MEDICAL HISTORYDiagnosis Date- GERD (gastroesophageal reflux disease)- OsteoarthritisPast Surgical History:PAST SURGICAL HISTORYProcedure Laterality Date- KNEE ARTHROSCOPY/SURGERY Bilateral- ROTATOR CUFF REPAIR c3Dvmqig History: No family history on file.Social History:Social HistorySubstance Use Topics- Smoking status: Not onfile- Smokeless tobacco: Not on file- Alcohol use Not on fileMedications:ibuprofen 800 mg tablet Take 1 tablet by mouth as needed (for pain.).multivitamin (DAILY MULTIPLE) tablet Take 1 tablet by mouth once daily.Sbkfyeryyhc-Ttyahwxfe-Wff C-Mn (GLUCOSAMINE CHONDROITIN MAXSTR) 500-400 mg capTake 1 capsule by mouth once daily.omeprazole (PRILOSEC) 20 mg ORAL capsule Take one(1) capsule daily.traMADOL (ULTRAM) 50 mg ORAL tablet Take one(1) tablet every four(4) to six(6)hours as needed for pain.niacin controlled release 750 mg ORAL CR tablet Take one(1) tablet daily atbedtime.Allergies:ALLERGIESAllergen Reactions- Processed Poultry [* GI UpsetOBJECTIVE:Physical Examination:VITALS: BP 119/80 Pulse 71 Temp 36.4 ?C (97.6 ?F) (Oral) Ht 179.1 cm (5'10.5ANDquot;) Wt 93.3 kg (205 lb 9.6 oz) BMI 29.08 kg/z1CHXCAGU: Well appearing, sitting in chair, in NAD.HEENT: NCAT, MMM, EOMI, no scleral icterus, oropharynx clear and withoutlesion, tonsillar exudates, or oral ulcerations.NECK: Normal ROM. No appreciable JVD, cervical LAD, or thyromegaly.CV: Normal rate, regular rhythm with normal S1/S2. No appreciablemurmur/rub/gallop.PULM: Normal WOB and RR on RA. Lung [...] Hips: Intact ROM. No tenderness with palpation. Knee s: No gross deformity. No appreciable effusion. No tenderness withpalpation of joint lines. Mild crepitus bilaterally. Ankles: No limitation of plantarflexion or dorsiflexion. No appreciableeffusion.No tenderness with palpation. Feet: No evidence of synovitis or tenderness with palpation.Investigations:Most recent labs:No results found for: WBC, HGB, [...] presents for further evaluation ofhis pain.Polyarthritis - Af fecting primarily hands, shoulders, knees, feet. Likelyrelated to osteoarthritis but some aspects do sound inflammatory (MCP/PIPinvolvement, pain both with rest and after activity, good response to NSAIDs).Less likely CPPD or RA.? Ordered for bilateral hand x-rays to assess for any new inflammatorychangescompared to prior? Ordered for bilateral knee x-rays [...] place of Ibuprofen for gentler effecton stomach dueto h/o PUDChronic neck pain - No radicular [...] rheumatology staff, Dr. Dasilva.Dontae Russell, MDRheumatology Fellow, LCB-[phone] 1:51 PM++++++++ +++++++++++++++++++++++++++++++++++++++++++++++++++++++++++RHEUMATOLOGY STAFF PHYSICIAN NOTEPatientseen and evaluated with Dr Russell on March [...] of day. Pt concurs pain isworse in evening.Denies erythema, warmth or swelling of UE or LE joints. Onexam: stoic; L 3MCP S0T1L1 ; some arsen's nodes; wrists S0T0L1 milddecrease ext/ flex britni; intact sensation to PP/cold in UE including Mediannerve distribution, intact APB/OPB britni; negative flexor tenosynovitis (triggerfinger); xrays showmild osteoarthritis of pips, no chondrocalcinosis. Mostlikely osteoarthritis though cannot rule outsome mild inflammatory component.Although no findings of carpal tunnel syndrome on exam, cannot rule out somecomponent of neuropathic pain given patient's description. Ddx cppd, early RA,atypical osteoarthritis .Will obtain xrays rule out erosions/chondrocalcinosis;try celebrex bid prn rather than i buprofen ( risks and benefits of nsaidsdiscussed with patient ; hx remote pud ANDgt;40 yrs ago). Agree with trial ofduloxetine.Jm Dasilva MD, MSc, CPCDontae Russell MD 03/13/2017 3:25 PM AddendumIt was a pleasure seeing you in [facility] today.MEDICATIONS:- You can take Ibuprofen up to 400-800 mg up to two times a day. Do not take italongside the Celebrex. Whentaking Celebrex, you can take 100 mg (1 [...] needed. To make an appointmentyourself, please call [phone] (central scheduling). Call [phone] tospeak with the rheumatology motel front desk clerk.I will contact you by phone or by letter if there are results/recommendationsstill pending.My clinic contact information is...Dontae Russell MDLewis County General Hospital, Orthopaedic and Rheumatologic InstituteVan Wert County HospitalTelephone: [phone]: [phone]: [phone]: [address] [place], [place] [address]Qekfpeesr Provider: SELF [200]Allergies As of Date: 03/13/2017 Noted Allergy Reactionprocessed poultry [Other] 04/13/2010 8 - GI Upset Comments: PROCESSED MEATSDate Reviewed: 03/13/2017Reviewed by: Dontae Russell (Fel) - Fully AssessedReason for Visit: Arthritis [10]Primary Visit Diagnosis:Osteoarthritis, unspecified osteoarthritis type, unspecified site [M19.90] Other Visit Diagnoses:Polyarthritis of multiple sites (HCC) [M06.4] Chronic neck pain [M54.2, G89.29]Gastroesophageal reflux disease without esophagitis [K21.9]Order(s):COMP METABOLIC PANEL [SQCMP] Order #: [id number] FUTURE SED RATE WESTERGREN [SQWSR] Order #: [id number] FUTURE C- REACTIVE PROTEIN (CRP) [SQCRP] Order #: [id number] FUTURE RHEUMATOID FACTOR BL [SQRF] Order #: [id number] FUTURE CCP ANTIBODY IGG [SQCCP] Order #: [id number] FUTURE XR HAND GENERAL 3V PA/LAT/OBL LT [[id number]] Order #: [id number] FUTURE XR HAND GENERAL 3V PA/LAT/OBL RT [[id number]] Order #: [id number] FUTURE XR KNEE SURVEY ARTHRITIS 1V AP BILAT [[id number]] Order #: [id number] FUTURE acetaminophen (TYLENOL) 325 mg tabletTake 2 tablets by mouth every 4 hours as needed. for pain.Disp: 60 tabletRfl: 0 DULoxetine (CYMBALTA) 30 mg capsuleTake 1 capsule by mouth once daily.Disp: 30 capsuleRfl: 0Prescriptions as of 03/13/2017Sig: TRAMADOL 50 MG TABLET Take 50 mg [...] MG CAPSULE,DEEPA* Take 1 capsule by mouth once*X CELECOXIB 100 MG CAPSULE Take 1 capsule by mouth twice*Medication notes this encounter FENOFIBRATE MICRONIZED 134 MG CAPSULE >> Makayla Stevenson 03/13/2017 2:12 PM >> MAKAYLA STEVENSON MonMar 13, 2017 2:12 PM Received from: External Pharmacy Received Sig: TAKE ONE CAPSULE BY MOUTH DAILY LATANOPROST 0.005 % EYE DROPS >> Mkaayla Stevenson 03/13/2017 2:12 PM >> ELENA STEVENSON Mar 13, 2017 2:12 PM Received from: External PharmacyProblem List As Of Date: 03/13/2017(None) Other instructions from your clinician: It was a pleasure seeing you in [facility]'s rheumatology office today. MEDICATIONS: - You can take Ibuprofen up to 400-800 mg up to two times a day. Donot take it alongside the Celebrex. When taking [...] obtaining blood work. X-RAYS: Please stop by radiologyfor x-rays on the second floor if we discussed obtaining imaging. Follow-up: We will see you back in clinic as needed. To make an appointment yourself, please call [phone] (central scheduling). Call [phone] to speak with the rheumatology motel front desk clerk. I will contact you by phone or by letter if there are results/recommendations still pending. My clinic contact information is... Dontae Russell MD Fellow, Orthopaedic and Rheumatologic [facility] Appointment: [phone] Address: [address] [place] [address] / [place], [place] [address]Prescriptions ordered this encounter Disp Refills Start End ACETAMINOPHEN 325 MG TABLET 60 t* 0 03/13/2017 Route: ORAL Sig: Take 2 tablets by mouth every 4 hours as needed. for pain. CELECOXIB 100 MG CAPSULE 60 c* 1 03/13/2017 03/14/2017 Route: ORAL Sig: Take 1 capsule by mouth twice daily. Disc: MedicalContraindication DULOXETINE 30 MG CAPSULE,DELAYED REL* 30 c* [...] at bedtime. Disc: Course of therapy completed Ofeicjhgaox-Dclqbmrml-Jgd C-Mn (GLUC* 03/28/2012 03/13/2017 Class: Historical Med Route: ORAL Sig: Take 1 capsule by mouth once daily. Disc: Course of therapy completedDisposition: Return if symptoms worsen or fail to improve.Follow-up and Disposition History RecordedEncounter Number: [id number]:Closed by JM DASILVA on 03/19/17NoWright-[facility] Metabolic Panelon 14-35-9721Zdbefrc aminotransferase (ALT) 22 U/XYymdjs63-50WcjzbnstnUC [facility] on above:Performed By: #### WSR, CMP, CRP, RF, CCP ####[place] [phone] g/dLNormal3.9-4.9CHocking Valley [facility] on above:Performed By: #### WSR, CMP, CRP, RF, CCP ####[place] [phone] phosphatase (ALP)52 U/OQsrlcj11-620NgbexpkklUC [facility] on above:Performed By: #### WSR, CMP, CRP, RF, CCP ####[facility] [place] [phone] gap11 mmol/LNormal9-18[facility] on above:Performed By: #### WSR, CMP, CRP, RF, CCP ####[place] [phone] aminotransferase (AST)27 U/DSblodu90-26TbsacfztmUC [facility] on above:Performed By: #### WSR, CMP, CRP, RF, CCP ####[address] [phone] (total)0.4 mg/dLNormal0.2-1.3CHocking Valley Community Hospital on above:Performed By: #### WSR, CMP, CRP, RF, CCP ####[place] [phone] mg/dLNormal8.5-10.2CHocking Valley Community Hospital on above:Performed By: #### WSR, CMP, CRP, RF, CCP ####[place] [phone] mmol/BWkepbb01-330PnwmxoaeuUC [facility] on above:Performed By: #### WSR, CMP, CRP, RF, CCP ####[place] [phone] mmol/LNormal 22-30[facility] on above:Performed By: #### WSR, CMP, CRP, RF, CCP ####[place] [phone] mg/dLHigh0.73-1.22[facility] Comment on above:Performed By: #### WSR, CMP, CRP, RF, CCP ####[place] [address] [address] [phone] (non-black) mL/min/{1.73_m2}NormalUC [facility] Hospital on above:Performed By: #### WSR, CMP, CRP, RF, CCP ####[place] [address] [address] [phone] (non-black)57 .NormalUC West Chester Hospital on above:Result Comment: eGFR (Estimated GFR) Units of measure: mL/min/1.73 meters squaredeGFR is derived from the reexpressed MDRD Study equation using the following parameters: serum creatinine, age, genderand race. The creatinine assay has been calibrated to be traceable to IDMS.An eGFR <60 mL/min/1.73m2 for >3 months is consistent with chronic kidney disease. Refer to KDOQI guidelines for clinical interpretation.In patients with unstable renal function, e.g. those with acute kidney injury, the eGFR may not accurately reflect actual GFR.Performed By: #### WSR, CMP, CRP, RF, CCP ####[place] [address], [place] [phone] mass conc84 mg/vOPdjynh00-28BixqworpsUC [facility] on above:Result Comment: The [place] Diabetes Association (ADA) provides guidance for cutoff values for fasting glucose and random glucose. The ADA defines fasting as no caloric intake for at least 8 hours. Fasting plasma glucose results between 100 to 125 mg/dL indicate increased risk for diabetes (prediabetes).Fasting plasma glucose results greater than or equal to 126 mg/dL meet the criteria for diagno sis of diabetes. In the absence of unequivocal hyperglycemia, results should be confirmed by repeattesting. In a patient with classic symptoms of hyperglycemia or hyperglycemic crisis, random plasmaglucose results greater than or equal to 200 mg/dL meet the criteria for diagnosis of diabetes.Reference: Standards of Medical Care in Diabetes 2016, [place] [employer] Association. Diabetes Care. 2016.39(Suppl 1).Performed By: #### WSR, CMP, CRP, RF, CCP ####[place] [address] WellsF[address], [place] [phone] molar conc 4.7 mmol/LNormal3.7-5.1CHocking Valley Community Hospital on above:Performed By: #### WSR, CMP, CRP, RF, CCP ####[facility], [place] [phone] g/dLNormal6.3-8.0[facility] on above:Performed By: #### WSR, CMP, CRP, RF, CCP ####[place] [address], [place] [phone] mmol/QHsieay311-258BoaycmyffUC [facility] on above:Performed By: #### WSR, CMP, CRP, RF, CCP ####[facility] [address] [place], [place] [phone] vingsagg71 mg/dLNormal9-24[facility] on above:Performed By: #### WSR, CMP, CRP, RF, CCP ####[facility] [address] [place], [place] [phone] [phone] ID: [id number]: Beverly Meng RtService: (none)Author Type: (none)Type: Progress NotesFiled: 03/13/2017 4:01 PMNote Text: Radiology Service Progress NotePATIENT NAME: EMMA McmahonrocMRN: [id number] OF SERVICE: March 13, 2017TIME: 4:01 PMPATIENT IDENTITY VERIFICATION COMPLETED USING TWO (2) METHODS: Patientconfirmed name verbally and Date of .PATIENT GENDER DATA: MalePAT IENT RELEVANT IMPLANT DATA REVIEWED: YesRADIOLOGY DEPARTMENT: General X-ray: Exam(s) Completed: Lower ExtremityX-Ray(s): Knee, AP Only Bilateral and Wt. Bearing:Upper Extremity X-Ray(s): Hand, Bilateral :PERIPHERAL IV DATA: Not applicableSIGNED BY: Beverly Meng RtOct2016 4:01 PMNormalPromedica Flower HospitalPROGRESSHNO ID: [id number]: Jm Hinojosa: (none)Author Type: PhysicianType: Progress NotesFiled: 03/19/2017 1:41 PMNote Text:[facility] Orthopaedic AND Rheumatologic InstituteDepartment of Rheumatic and Immunologic DiseasesThis consult was requested by the doctor listed below for an opinionregarding the chief complaint listed below, and my final recommendationswill be communicated to the requesting health care provider by way of the[facility] medical record for internal providers or letter via the [facility] forexternal providers.Consulting Physician: SelfSUBJECTIVE:CC: Joint painHistory of Present Illness:Emma James is a 66 year old male with osteoarthritis (s/pbilateral TKA and R rotator cuff repair), glaucoma, and GERD who presentsfor further evaluation of his jointpain.He was previously evaluated by Dr. Quintanilla in 03/2010 and 03/2012. Hewas primarily treatedwith NSAIDs and referred for PT for his low backpain. At initial time of presentation, there was concern that he couldhave RA but this was thought less likely based on exam, labs, and x-raysnot showing any deformities.He now returns for evaluation due to progressively more severe painaffecting his bilateral hands, feet, and neck. He'll also occasionallyhave pain in his left shoulder and bilateralknees though these are moreinfrequent. 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 Chelseaoes report a history of PUD but this was a long time ago. Denies cardiacissues or HTN.Review of Sy stems:Positive for:EYES: Loss of vision, DrynessEAR, NOSE, MOUTH, THROAT: Swallowing problemsMUSCULOSKELETAL: Joint pain, Morning stiffness in joints, Back painSKIN: Hair lossNEUROLOGIC: Numbness or tinglingALLERGIC/ IMMUNOLOGIC: Allergies (other than medications)Otherwise, a complete 14 point ROS was obtained and was negative exceptfor above.Past Medical History:PAST MEDICAL HISTORYDiagnosis Date- GERD (gastroesophageal reflux disease)- OsteoarthritisPast Surgical History:PAST SURGICAL HISTORYProcedure Laterality Date- KNEE ARTHROSCOPY/SURGERY Bilateral- ROTATOR CUFF REPAIR f3Ntnrfi History:N o family history on file.Social History:Social HistorySubstance Use Topics- Smoking status: Not on file- Smokeless tobacco: Not on file- Alcohol use Not on fileMedications:ibuprofen 800 mg tablet Take 1 tablet by mouth as needed (for pain.).multivitamin (DAILY MULTIPLE) tablet Take 1 tablet by mouth once daily.Acjqxssbiqw-Depncfbxl-Qqr C-Mn (GLUCOSAMINE CHONDROITIN MAXSTR) 500-400 mgcap Take 1 capsule by mouth once daily.omeprazole (PRILOSEC) 20 mg ORAL capsule Take one(1) capsule daily.traMADOL (ULTRAM) 50 mg ORAL tablet Take one(1) tablet every four(4) tosix(6) hours as needed for pain.niacin controlled release 750 mg ORAL CR tablet Take one(1) tablet dailyat bedtime.Allergies:ALLERGIESAllergen Reactions- Processed Poultry [* GI UpsetOBJECTIVE:Physical Examination:VITALS: BP 119/80 Pulse 71 Temp 36.4 ?C (97.6 ?F) (Oral) Ht 179.1 cm(5' 10.5 ) Wt 93.3 kg (205 lb 9.6 oz) BMI 29. 08 kg/w5OGTPMQW: Well appearing, sitting in chair, in NAD.HEENT: NCAT, MMM, EOMI, no scleral icterus, oropharynx clear and withoutlesion, tonsillar exudates, or oral ulcerations.NECK: Normal ROM. No appreciable JVD, cervical LAD, or thyromegaly.CV: Normal rate, regular rhythm with normal S1/S2. No a ppreciablemurmur/rub/gallop.PULM: Normal WOB and RR on RA. Lung zepeda CTA bilaterally withoutappreciable wheezes or crackles.GI: NABS, soft, nondistended, nontender.EXT: 2+ radial and DP pulses. No edema.SKIN: Warm, dry, no significant rashes, no significant bruising.NEURO: AOx3. Mental status andspeech normal. Cranial nerves grosslyintact. 5/5 motor strength. Intact sensation to light touch throughoutincluding in fingertips. Negative Phalen's.PSYCH: Pleasant mood, appropriate affect.MSK: Neck: Flexion, extension, and lateral rotation WNL. Spine: Intact ROM. No TTP over the posterior C-spine. Shoulders: Intact ROM without reported pain. No appreciable swellingor tenderness with palpation.Some crepitus. Elbows: No flexion contractures. No appreciable swelling,deformities, or tenderness with palpation. Wrists: No limitation of flexion or extension. No appreciableswelling or tenderness with palpation. Slight ulnar deviation, thougheasily correctable. Hands: No evidence of synovitis ortenderness with palpation. Gxdo6jm MCP slightly swollen but only tender with [...] No evidence of synovitis or tenderness with palpation.Investigations:Most recent labs:No results found for: WBC, HGB, [...] x-rays to assess for any new inflammatorychanges comparedto prior? Ordered for bilateral knee x-rays to [...] rheumatology staff, Dr. Dasilva.Dontae Russell, MDRheumatology Fellow, [phone] 2016 1:51 PM+++++++++++++++++++++++++ ++++++++++++++++++++++++++++++++++++++++++RHEUMATOLOGY STAFF PHYSICIAN NOTEPatient seen and evaluated with Dr Russell on March 13, 2017I have reviewed the note documented by Dr Russell and I personallyparticipated in the haro components. I have discussed the case andmanagement of the patient's care .Agree with above findings, assessment and plan of care .66 yo RH male w chronic pain in neck, hands > feet, indicates mcps/pips.Reports difficulty making fists in am, cannot skin a pig , no paresis orparesthesiae. Good relief from tramadol in am + ibuprofen 400-800mg inpm. reports that hehas severe pain at end of day. Pt [...] osteoarthritis though cannot rule out somemild inflammatory component.Although no findings of carpal tunnelsyndrome on exam, cannot rule out some component of neuropathic pain givenpatient's description. Ddx cppd, early RA, atypical osteoarthritis .Willobtain xrays rule out erosions/chondrocalcinosis; try celebrex bid prnrather than ibuprofen ( risks and benefits of nsaids discussed withpatient ; hx remote pud >40 yrs ago). Agree with trial of duloxetine.Jm Dasilva MD, MSc, FRCPCNormalPromedica Flower HospitalRheumatoid Factoron 04-36-2976Bczscvtwmn Factor<10Normal<16[facility] on above:Performed By: #### WSR, CMP, CRP, RF, CCP ####[facility] [address] [place], [place] [phone] Rate Westergrenon 57-60-3320Ckt Rate WestergrenUnable to assay. Quantity not sufficient.Normal0-15[facility] on above:Result Comment: Account CreditedCalled [facility] [address] 03.14.2017 AL Performed By: #### WSR, CMP, CRP, RF, CCP ####[facility] [address] [place], [place] [phone] HAND 3V PA/LAT/OBL LTon 03-13-2017 XR HAND 3V PA/LAT/OBL LT* * *Final Report* * *DATE OF EXAM: [...] are no marginal erosions. Joint spaces are melvin ntained. No soft tissue calcifications. Cystlike changes in the third metacarpal heads bilaterally more pronounced on the right.No other significant abnormality.IMPRESSION:No acute findings.Cocoa Powder Mixer Operator: ANNA Transcribe Date/Time: Mar 13 2017 4:35PDictated by : SHAY MATTHEWS MDThis examinationwas interpreted and the report reviewed and electronically signed by: SHAY MATTHEWS MD on Mar 13 2017 4:37PM [id number] Clinic ClevelandXR HAND 3V PA/LAT/OBL RTon 21-72-1617QG HAND 3V PA/LAT/OBL RT* * *Final Report* * *DATE OF EXAM: [...] on the right.No other significant abnormality.IMPRESSION:No acute findings.Cocoa Powder Mixer Operator: ANNA Transcribe Date/Time: Mar 13 2017 4:35PDictated by : Garrett CASANOVA examinationwas interpreted and the report reviewed and electronically signed by: SHAY MATTHEWS MD on Mar 13 2017 4:37PM [id number] Clinic ClevelandXR KNEE SURVEY 1V AP BILon 13-62-7757GC KNEE SURVEY 1V AP BRITNI* * *Final Report* * *DATE OF EXAM: [...] XB_1COMPARISON: NoneRESULT:Mild narrowing of the medial joint comp artments bilaterally with small osteophytes. Osseous structures are intact.No other significant abnormality.IMPRESSION:Mild bilateral osteoarthritis.Cocoa Powder Mixer Operator: ANNA Transcribe Date/Time: Mar 13 2017 4:36PDictated by : Garrett CASANOVA examination was interpreted and the report reviewed and electronically signed by: SHAY MATTHEWS MD on Mar 13 2017 4:36PM [id number] [facility] [place] Vital Signs Date TimeVital SignValuePerforming KnfcmizfzFmaywhzx11-83-5807 09:16-0500Body knanxr728.1 cmRobert Juan C DO Work Phone: [facility]OSaint [facility] CenterPfsezgckdk94-43-9549 09:16-0500Body mass index (BMI) [Ratio]29.28 kg/i4Slpmno Juan C DO Work Phone: [facility] HealthMadfxavnue59-73-1723 09:16-0500Body rykgjo11.89 kgRobcarlos Irizarry DO Work Phone: [facility] HealthFwyvtpxoww25-99-8824 09:16-0500Diastolic blood hcignete94 mm[Hg]Dennis Irizarry DO Work Phone: [facility] HealthOndvoaqrcv70-69-8591 09:16-0500Heart rate67 /min Dennis Irizarry DO Work Phone: [facility] HealthFnvgpmqirh51-83-8112 09:16-2821VhM4% (BldA) [Mass fraction]99 %Dennis Irizarry DO Work Phone: [facility] HealthZhjnyadmno64-48-4820 09:16-0500Systolic blood koxjurzf497 mm[Hg]Dennis Irizarry DO Work Phone: [facility] HealthOawfqzogrk77-94-8057 09:22-0400Body yvuwab457.1 cmRoberaustin Irizarry DO Work Phone: [facility] HealthGapbvbsmtd62-11-5245 09:22-0400Body mass index (BMI) [Ratio]28.66 kg/b4Ntrvmecarlos Irizarry DO Work Phone: [facility] HealthFcartifdhw10-20-0677 09:22-0400Body vomygf49.9 kg Dennis Irizarry DO Work Phone: [facility] HealthHxkzmmeelq77-73-6039 09:22-0400Diastolic blood owdqavzk36 mm[Hg]Dennis Irizarry DO Work Phone: [place] [address]Ashwyqulvg72-20-2523 09:22-0400Heart rate70 /min Dennis Irizarry DO Work Phone: [place] [address]Hgzovdyccy11-97-0494 09:22-4481UeX4% (BldA) [Mass fraction]93 %Dennis Irizarry DO Work Phone: [facility] HealthBkdfggkipx04-12-0263 09:22-0400Systolic blood oetdmjqj532 mm[Hg]Dennis Irizarry DO Work Phone: [facility] HealthApgrffbzbw47-47-2691 14:18-0500Diastolic blood bfghyzeo86 mm[Hg]Brooke Delgado NET DEVELOPER [employer] Work Phone: [facility] HealthYhepgeabxc03-83-4931 14:18-0500Heart kgpw633 /min Brooke Delgado NET DEVELOPER [employer] Work Phone: [facility] HealthKodceuzmem55-01-5793 14:18-7324RvC7% (BldA) [Mass fraction]93 %Brooke Delgado NET DEVELOPER WITH [employer] Work Phone: [facility] HealthBvvsigsmnh73-20-5678 14:18-0500Systolic blood xuegfgzj989 mm[Hg]Brooke Delgado NET DEVELOPER WITH [employer] Work Phone: [facility] HealthEbmjwcmybk02-92-8891 08:57-0400Body zjhxky733.1 cmRoberaustin Irizarry DO Work Phone: [facility] HealthDrxradwrrn39-24-1108 08:57-0400Body mass index (BMI) [Ratio]29.85 kg/s9Tyffpv Radhak DO Work Phone: [place] [address]Ycilhwpmzd76-60-9092 08:57-0400Body ettaud14.71 kgRobert Radhak DO Work Phone: noSaint [facility] CenterPafgvqpmww37-45-5347 08:57-0400Diastolic blood xjwykdyg80 mm[Hg]Dennis Irizarry DO Work Phone: [facility] HealthKugymauknr61-08-7717 08:57-0400Heart rate73 /min Dennis Irizarry DO Work Phone: [place] [address]Coqsonmjdo92-70-8739 08:57-5015AdZ6% (BldA) [Mass fraction]96 %Dennis Irizarry DO Work Phone: [place] [address]Cfpbosuzha05-96-8254 08:57-0400Systolic blood mm[Hg]Dennis Irizarry DO Work Phone: [facility] Healthcare Encounters Encounter DateEncounter TypeCare ProviderFacilityStart: 11-07-2025 End: 22-93-6735rxedbmbaovAPXMYG Frances GARCIAGee AvailableStart: 03-28-2025 End: 01-17-7248Kpjqei outpatient visit 40 minutesRobcarlos Irizarry DO Work Phone: [facility] Internal MedicineComment on above:Mixed hyperlipidemia (Primary Dx); S/P CABG x 3; S/P Maze operation for atrial fibrillation; Status post ligation of left atrial appendage; Gastroesophageal reflux disease without esophagitis; Hx of atrial fibrillation without current medication; Medicare annual wellness visit, subsequent; ACP (advance care planning); Generalized osteoarthritis of multiple sitesStart: 03-28-2025 End: 55-62-5395Negcfqh encounter procedureDennis Irizarry DO Work Phone: [facility] HealthcareStart: 03-20-2025 End: 15-15-0093bgsiwrmbfsQJLXSelect [facility], Beachwoodtart: 01-15-2025 End: 44-87-7934Nnlzimzui Result EncounterGeneric External Data ProviderNOMS External Department UnsolicitedStart: 01-15-2025 End: 33-39-8543Hqdhqcylt Result EncounterGeneric External Data ProviderNOMS External Department UnsolicitedStart: 01-15-2025 End: 60-55-7431kxsvtllipuOBCF [facility]tart: 12-25-2024 End: 72-64-7355Vjbslrzzv Result EncounterGeneric External Data ProviderNOMS External Department UnsolicitedStart: 12-25-2024 End: 02-33-8556Cadsbaiim Result EncounterGeneric External Data ProviderNOMS External Department UnsolicitedStart: 12-11-2024 End: 30-83-9130Hwhxyowll Result EncounterGeneric External Data ProviderNOMS External Department UnsolicitedStart: 12-11-2024 End: 57-96-9757Rwjwvihtf Result EncounterGeneric External Data ProviderNOMS External Department UnsolicitedStart: 12-07-2024 End: 28-73-0879Ibsfcjqcd Result EncounterGeneric External Data ProviderNOMS External Department UnsolicitedStart: 12-07-2024 End: 16-50-9171Hdxcnscod Result EncounterGeneric External Data ProviderNOMS External Department UnsolicitedStart: 11-25-2024 End: 77-26-2187Uhpomahwq Result EncounterGeneric External Data ProviderNOMS External Department UnsolicitedStart: 11-25-2024 End: 94-46-0524Jclblyrbu Result EncounterGeneric External Data ProviderNOMS External Department UnsolicitedStart: 11-21-2024 End: 01-24-6288hnscuaszimUKWQTriHealth [facility] Hospitaltart: 11-14-2024 End: 61-77-4000Fgegiprnv Result EncounterGeneric External Data ProviderNOMS External Department UnsolicitedStart: 11-14-2024 End: 19-54-6286Xrkfweptq Result EncounterGeneric External Data ProviderNOMS External Department UnsolicitedStart: 10-16-2024 End: 48-73-4558Uhfishaxy Result EncounterGeneric External Data ProviderNOMS External Department UnsolicitedStart: 10-16-2024 End: 39-16-5891Fqbgdvkbt Result EncounterGeneric External Data ProviderNOMS External Department UnsolicitedStart: 09-20-2024 End: 02-11-0987Kkafyxnir Result EncounterGeneric External Data ProviderNOMS External Department UnsolicitedStart: 09-20-2024 End: 91-12-1308Lrbharobi Result EncounterGeneric External Data ProviderNOMS External Department UnsolicitedStart: 09-18-2024 End: 02-84-9432Uqtejwwia Result EncounterGeneric External Data ProviderNOMS External Department UnsolicitedStart: 09-18-2024 End: 06-06-1511Gzhbwemoj Result EncounterGeneric External Data ProviderNOMS External Department UnsolicitedStart: 09-11-2024 End: 67-05-3241Diafnjxim Result EncounterGeneric External Data ProviderNOMS External Department UnsolicitedStart: 09-11-2024 End: 18-42-7259Kpdnkyooj Result EncounterGeneric External Data ProviderNOMS External Department UnsolicitedStart: 46-84-7734rjizwxxmntRNHSUOAvita Health System Ontario Hospitaltart: 06-26-4606vkpfccmewaYWBE [facility] Hospitaltart: 20-26-1226wqnpikcsoaIOYPGCT J KUVeterans Health Administrationtart: 09-02-2024 End: 35-55-4960Uvuejsmkswat care manage srvc 14 day dischargeDennis Irizarry DO Work Phone: NOMS SWS IMComment on above:Atrial fibrillation, unspecified type (HCC) (Primary Dx); Bilateral leg edema; S/P Maze operation for atrial fibrillation; Status post ligation of left atrial appendage; S/P CABG x 3; Acute diastolic heart failure secondary to coronary artery disease (HCC); Blood loss anemia; Elevated liver enzymes; Mixed hyperlipidemiaStart: 09-02-2024 End: 32-59-0677czymvathzvSTBHTQ J VASCHAKNot AvailableStart: 08-29-2024 End: 22-44-8335pbpnlrewwrDFWASIQ [facility]tart: 08-29-2024 End: 24-54-4825rfvhohipzzYCZGYRS [facility] Hospitaltart: 91-28-9334Crxasthuir and management of inpatientANTHONY [facility] Hospitaltart: 68-75-0054Eguwqeknfr and management of inpatient [facility]: 63-32-4678Feshzxxddx and management of inpatientLATINA [facility]tart: 26-78-1689Lhsopvepbo and management of inpatientANTHONY [facility] Hospitaltart: 13-89-2832Bgeynmclff and management of inpatientJAI LEEKettering Health Washington Townshiptart: 60-63-6866Iiymvuwlwm and management of inpatientLATINA [facility]tart: 08-18-2024 Evaluation and management of inpatientLATINA [facility]tart: 10-40-6357Eapzjbvvtv and management of inpatientREAL BRANDMTMISAELRiverview Health Institutetart: 72-19-9562Jbpgmtcaie and management of inpatientLAMercy Health St. Charles Hospitaltart: 75-23-0985Tvvylogymk and management of inpatientLATINA [facility]tart: 33-29-9277Ddurgxmoxc and management of inpatientANTHONY [facility] Hospitaltart: 37-81-6937Xavscajzam and management of inpatientANTHONY [facility]tart: 47-24-3005Epjtelwtyx and management of inpatientREAL [facility]ertart: 08-14-2024 End: 80-91-0740Gimmufzmvn and management of inpatientANTHONY [facility] Hospitaltart: 61-31-0144Ldmdxarpsu and management of inpatient REAL [facility] Centertart: 08-14-2024 Evaluation and management of inpatientEHAB [facility]tart: 21-93-5933mekapfgiqoHVRU [facility]tart: 08-14-2024 End: 26-06-0774Rzwltmewxx and management of inpatientANTHONY [facility]tart: 07-30-2024 End: 41-59-4219mpvieskdblETTT [facility]tart: 07-22-2024 End: 33-61-2756Knzmvfdxn Result EncounterRobert J Vasdanielak DO Work Phone: noms External Department UnsolicitedStart: 07-22-2024 End: 01-97-8168Kgucfcghe Result EncounterRobert J Vasdanielak DO Work Phone: noms External Department UnsolicitedStart: 07-15-2024 End: 36-30-2094Ostgpl outpatient visit 25 minutesBrooke Delgado NET DEVELOPER WITH [employer] Work Phone: noms SWS IMComment on above:Shortness of breath (Primary Dx); Bilateral leg edemaStart: 07-15-2024 End: 70-69-9944xprutwdyjxOOXSEKN L DIDIONNot AvailableStart: 05-10-2024 End: 11-91-9346Omwbbt flowsheetJr. Armida Ramirez DO Work Phone: NOMS ORTHOStart: 05-10-2024 End: 43-04-4097Blbmpy flowsheetJr. Armida Ramirez DO Work Phone: NOMS ORTHOStart: 05-10-2024 End: 05-68-3615azwqrhnlfsET., ARMIDA RAMIREZNot AvailableStart: 05-10-2024 End: 43-47-0187Zfgayz outpatient visit 15 minutesJr. Armida Ramirez DO Work Phone: NOMS PCF ORTHOComment on above:Right knee pain, unspecified chronicity (Primary Dx); Primary osteoarthritis of right kneeStart: 04-29-2024 End: 16-46-3158yhtnsulazmGDXYL B APLINGNot AvailableStart: 04-24-2024 End: 01-03-3307Jsvlcf flowsheetMaria B Apling NET DEVELOPER WITH [employer] Work Phone: noms CI ORTHOPAEDICSStart: 04-24-2024 End: 40-88-9911Znkuqw flowsheetMaria B Apling NET DEVELOPER WITH [employer] Work Phone: noms CI ORTHOPAEDICSStart: 04-24-2024 End: 86-69-0957Jwrdtf outpatient visit 15 minutesMaria B Apling NET DEVELOPER WITH [employer] Work Phone: noms CI ORTHOPAEDICSComment on above:Right knee pain, unspecified chronicity (Primary Dx); Primary osteoarthritis of right knee; Internal derangement of knee, rightStart: 04-24-2024 End: 91-47-7041mhfpenanczKSPGM B APLINGNot AvailableStart: 04-17-2024 End: 09-65-5230Oozfezphv encounterAshley Valerio NET DEVELOPER WITH [employer] Work Phone: noms [facility] IMStart: 04-09-2024 End: 08-52-1648Fffwhi flowsheetCelso Montano NET DEVELOPER WITH [employer] Work Phone: noms CI ORTHOPAEDICSStart: 04-09-2024 End: 78-08-0319Jpsmpb flowsheetCelso Montano NET DEVELOPER WITH [employer] Work Phone: noms CI ORTHOPAEDICSStart: 04-09-2024 End: 70-60-8218dekfivoolwAVSHI T OLSENNot AvailableStart: 04-09-2024 End: 89-03-5585Wdlxoq outpatient new 45 minutesCelso Montano NET DEVELOPER WITH WCF Work Phone: noms CI ORTHOPAEDICSComment on above:Primary osteoarthritis of right knee (Primary Dx); Right knee pain, unspecified chronicityStart: 03-22-2024 End: 18-03-4682Ohwblb outpatient visit 25 minutesRobert J Vaschak DO Work Phone: noms SWS IMComment on above:Benign fasciculation-cramp syndrome (Primary Dx); Obesity, unspecified class, unspecified obesity type, unspecified whether serious comorbidity present; Hypercholesteremia (CMS/HCC); Screening PSA (prostate specific antigen)Start: 01-12-2018 End: 42-75-3107Nyyxnft encounterPHILIP SUSAN B. ALLEN [facility] HOSPITALFacility:R4Xperm: 01-08-2018 Encounter for preprocedural cardiovascular examinationThe University of Toledo Medical Centertart: 01-05-2018 End: 06-71-4553Zlbjyjv encounterPHILIP SUSAN B. ALLEN MEMORIAL HOSPITALFacility:J0Ypfag: 07-17-2017 AmbulatoryROBERT VASCHAKFacility:1637Start: 35-44-4315TltthcdeorTwnwxdch:9573 Start: 03-13-2017 End: 71-30-2894MaijjzyyxpJENJBGCN HELENE [facility] HospitalStart: 03-13-2017 End: 54-73-5734EmvgaoglunOYRXIB (MATT) CHELSEAThe Jewish HospitalEncounter for preprocedural cardiovascular examinationKeenan Private Hospital Procedures DateProcedureProcedure DetailPerforming ClinicianStart: 75-77-4020DD CHEST 2V Generic External Data ProviderStart: 83-90-4933Chwuxn-up Conor HOWARD Start: 94-90-7986FHDBrdttrm External Data ProviderStart: 41-55-2482RSUAvtncdq External Data ProviderStart: 40-65-6767TA ECHO DOPPLER COMPLETEGeneric External Data ProviderStart: 70-70-5872PGB CBC WITH AUTO DIFFGeneric External Data ProviderStart: 02-68-3853Lhbekg-up visitKENVITORREBEKA BRANDRODDYStart: 73-61-3770HLU Generic External Data ProviderStart: 48-07-1212Yejxgsb of coronary artery bypass graftingS/P CABG x 3Robert Vasdanielak DO Work Phone: Start: 11-06-5822EBJLoxxoau External Data Provider Start: 08-50-9821FBZAzjaxcl External Data ProviderStart: 93-25-2690CPSHqfiviq External Data ProviderStart: 05-86-1919PHR CBC WITH AUTO DIFFGeneric External Data ProviderStart: 37-73-7316Yzudxc-up visitKIMBERLYREBEKA LEEStart: 09-10-2024 Follow-up visitREAL HOWARDStart: 52-15-5360Egrta metabolic panel calcium totalRobert Frances Irizarry DO Work Phone: Start: 58-79-6962Uphaam-up visitKIMBERLYREBEKA LEE Start: 93-39-6763Tmyaox-up visitKIMBERLYREBEKA LEEStart: 42-51-1634BE ECHO DOPPLER COMPLETERobert Frances Irizarry DO Work Phone: Start: 01-96-8834Fjuzcjjstgeqtq aspir&/inj major jt/bursa w/o usCelso Montano NET DEVELOPER WITH [employer] Work Phone: Start: 53-58-4115Gmxvivzprv examination knee 1/2 views Celso Montano NET DEVELOPER WITH [employer] Work Phone: Start: 62-82-9044Rkxynltarwdbq metabolic panelRobert J Juan C DO Work Phone: Start: 43-90-3648Uncfd panelRobert J Vaskerrie DO Work Phone: History of coronary artery bypass graftingS/P CABG x 3 Dennis Frances Irizarry DO Work Phone: History of coronary artery bypass graftingS/P CABG x 3 Dennis Irizarry DO Work Phone: Plan of Treatment DateCare ActivityDetailAuthorStart: 66-13-9367Vazqcytnz for malignant neoplasm of colonNOMO HealthcareStart: 04-03-2026 End: 08-29-3774Mgfavfs encounter /13/2026 9:00 AM EST Office Visit [facility] [address] [place] [address] Dennis Irizarry, DO [address] [place] [address] NOMDayana Rojas Internal MedicineStart: 77-73-8358Jmfgmqyvs vaccinationInfluenza Vaccine (#1)NOMS HealthcareComment on above:Postponed from 01/20/2025 (Patient Refused)Start: 03-28-2025 End: 47-54-1327Ejlrdue encounter procedureNOKERN VALLEY IMStart: 13-09-9652Yrkvblzoh vaccinationNOMO HealthcareStart: 37-63-9072Xkhkzkmko vaccinationInfluenza Vaccine (#1)NOMS HealthcareComment on above:Postponed from 01/21/2024 (Patient Refused)Start: 04-26-2025Medicare Annual Wellness (AWV)Medicare Annual Wellness (AWV)NOMS HealthcareStart: 07-15-2024 End: 74-55-2052EOM 12 leadECG 12 lead ECG Routine Shortness of breath Expected: 07/15/2024 (Approximate), Expires: 07/15/2025N[facility] Healthcare Work Phone: Comment on above:Expected: 07/15/2024 (Approximate), Expires: 07/15/2025Start: 04-29-2024 End: 87-55-6493Bqqbavnrfxfz / ancillary services /09/2024 8:30 AM EST Ancillary Procedure [facility] [address] [place] [address] NOMS FNR MRStart: 04-24-2024 End: 10-48-6248OM Knee - right WO contrastMR knee right wo IV contrast Imaging Routine Internal derangement of knee, right Expected: 04/24/2024 (Approximate), Expires: 04/24/2025[facility] Work Phone: Comment on above:Expected: 04/24/2024 (Approximate), Expires: 04/24/2025Start: 04-24-2024 End: 78-48-6825Inqjjgk encounter procedureNOMS CI ORTHOPAEDICSComment on above: Right knee pain, unspecified chronicity (Primary Dx); Primary osteoarthritis of right kneeStart: 04-14-2024Medicare Annual Wellness (AWV)Medicare Annual Wellness (AWV)NOMS HealthcareStart: 51-80-0092Ketyxpyoy for malignant neoplasm of colonNOMO Healthcare Immunizations Immunization DateImmunizationNotesCare JxpeajcyFcbmgvuz13-53-9489uybjhv vaccine recombinantGrant Otilio NET DEVELOPER WITH [employer] Work Phone: [phone]-[employer] [place], [place] [address]Ilefvczskl61-86-6937zgdxljujakys polysaccharide vaccine, 23 valentGrant Montano NET DEVELOPER WITH [employer] Work Phone: [phone]-AtlantiumCrittenton Behavioral HealthDkutstujwt91-33-5184smnxvvhduejo conjugate vaccine, 13 valentGrant Montano NET DEVELOPER WITH [employer] Work Phone: [phone] [place], [place] [address]Zazfvmomel93-84-2041biwinxcfh A and hepatitis B vaccineGrant Montano NET DEVELOPER WITH [employer] Work Phone: [phone]-[employer] [place], [place] [address]Qepgfpuqxm57-87-8665rzpubq vaccine, liveGrant Montano NET DEVELOPER WITH [employer] Work Phone: [phone] [place], [place] [address]Isjzwnpfqc76-12-2125uprvxiijv A and hepatitis B vaccineGrant Montano NET DEVELOPER WITH [employer] Work Phone: [phone]-[facility]antiumCrittenton Behavioral HealthHcqwygmlag58-53-1528gkkhluphz A and hepatitis B vaccineGrant Montano NET DEVELOPER WITH [employer] Work Phone: [phone]-[facility]antiumCrittenton Behavioral HealthPixplmibzk74-50-5342hilfqcs toxoid, reduced diphtheria toxoid, and acellular pertussis vaccine, adsorbedGrant Montano NET DEVELOPER WITH [employer] Work Phone: [phone]-[employer] Healthcare Payers DatePayer CategoryPayerPolicy [id number] Health InsuranceWPS [id number] 2018MedicareMEDICARE Member Subscriber Plan / Payer (Effective 2017- Present) Name: Emma James Member ID: [id number] Relation to Subscriber: Self Name: Emma James Subscriber ID: [id number] Payer ID: STATE Group ID: Not on file Type: Medicare Address: [place] [id number] 1960Medicare [id number] [id number] [id number] [id number] [id number] 2..1.076347.3.57[id number] 2.1.391030.3.57[id number] 2.[id number] 2.[id number] 2.16.840.1.407457.3.57[id number] 2.16.840.1.261817.3.579.2.4155Vumldxy1179 Social History DateTypeDetailFacilityStart: 09-15-2023 End: 59-46-4469Zmdhrwo smoking status NHISOccasional tobacco smokerNOMS HealthcareHistory of tobacco useCigarette SmokerNOMS HealthcareHistory of tobacco useCigar SmokerNOMS HealthcareStart: 09-15-2023 End: 05-46-5393Dhlbgql use and exposureSmokeless tobacco non-userNOMO Healthcare Start: 03-22-2024 End: 50-60-2937Sdmgwgisp beverage intakeCurrent drinker of alcohol (finding)NOM HealthcareStart: 09-15-2023 End: 29-09-5071Bfvhjlw of Social functionNOMO HealthcareStart: 09-15-2023 End: 06-49-2128Ggpejrq Use Disorder Identification Test - Consumption [AUDIT-C] NOM HealthcareHow often to you have a drink containing alcohol?2-4 times a monthNOMO HealthcareHow many standard drinks containing alcohol do you have on a typical day?1 or 2NOMS HealthcareHow often do you have 6 or more drinks on 1 occasion?NeverNOMS HealthcareStart: 14-98-2480Wpf assigned at birthNot on file NOM HealthcareStart: 96-28-4662Pmoftmf CommentOccasionalNOMO HealthcareStart: 56-52-8634NndFcxuCXPX Healthcare Functional Status BnryCzyamjjsvqHdyvleIfvpydzp49-31-4943Orxzbru Health Questionnaire 2 item (PHQ- 2) [Reported][facility] Healthcare Clinical Notes 03-22-2024 to 03-28-2025 Note Date & MkxmCcteNdnrnpiv22-86-8839 History of Present illness Narrative* Dennis Irizarry, DO - 03/28/2025 9:00 AM EST Images from the original note were not included. Patient presents today for Annual MW. He continues with BARRIENTOS HPI: HPI History of Present Illness The patient presents for evaluation of shortness of breath.First noticed his symptoms in 05/2024 while in [place], when he experienced BARRIENTOS,fatigue after walking miles [...] a child. Recent evaluation by Pulmonary at [place] for BARRIENTOS PFT showed mild restrictive lung [...] for which he was seen Dr. Willie Barrett HISTORIES: Health Maintenance Topic Date Due Medicare [...] Wt 207 lb SpO2 99% BMI 29.28 kg/m Smoking Status Some Days BSA 2.16 m BP Readings from Last 3 Encounters: 03/28/25 [...] sites evaluated and followed with [facility] rheum 0511-1611 Cardiac Ddx: ischemic CM/arrhythmia/ - He reports [...] Diabetes Brother Casey Heart disease Maternal Grandmother Creighton Cancer Paternal Grandmother Elizabeth Diabetes Paternal Grandmother Elizabeth Heart disease Paternal Grandfather WG [5] No Known Allergies documented in this encounterCrittenton Behavioral HealthShfurouoyi70-90-0522 Instructions* Patient Instructions* Urmila Herman LPN - 03/28/2025 [...] Prevention and staying healthy! documented in this encounterCrittenton Behavioral HealthCprkqrilvw14-83-8588 NoteKindred [facility]ima08-27-2025 NoteUnGuernsey Memorial Hospital07-03-2025 Note [facility]04-23-2025 NoteUnGuernsey Memorial Hospital04-22-2025 NoteUnGuernsey Memorial Hospital04-17-2025 Note [facility]04-14-2025 History of Present illness Narrative* Dennis Irizarry, DO - 09/02/2024 9:30 AM EDT Images from the original note [...] (Left: Leg Lower), LEFT ATRIAL APPENDAGE AMPUTATION WITHMODIFIED MAZE, RADIOFREQUENCY ABLATION (Left: Chest) History of Present Illness Flowsheet Row Patient Outreach from 08/22/2024 in [place] with Cris Owens LPN Hospital Information ED, Hospital or Chcf Facility Discharge? Hospital Patient has been contacted within two business days of discharge Yes Diagnosis Dyspnea, abnormal stress test, multi-vessel coronary artery stenosis, S/P CABG, coronary arteriosclerosis, pain Discharge Date 08/21/24 Discharged To: Home Setting Discharge Hospital [facility] Engagement Call Start Time 1520 Admission Date [...] Not at risk (08/29/2024) Received from [facility] PHQ-2 Patient Health Questionnaire-2 Score: 0 FAMILY [...] with 1+ edema Neurologic normal Results 08/14/2024 [facility] Severe, three-vessel coronary artery disease including the [...] 3. S/P Maze operation for atrial fibrillation [facility] 4. Status post ligation of left atrial appendage [facility] 5. S/P CABG x 3 [facility] -DeRiso LOPEZ TO LAD, SVG TO 2ND [...] hyperlipidemia low intensity statin documented in this encounterCrittenton Behavioral HealthIfjspjzkfa98-59-9069 NoteUnGuernsey Memorial Hospital04-02-2025 NoteSent final AVS to [address]04-02-2025 NoteKindred Hospital [facility]04-02-2025 Note [facility]04-02-2025 NoteKindred Hospital [facility]04-02-2025 NoteKindred Hospital [facility]04-02-2025 Note [facility]04-01-2025 NoteKindred Hospital [facility]04-01-2025 NoteKindred [facility]04-01-2025 Note [facility]04-01-2025 NoteKindred Hospital [facility]04-01-2025 NoteKindred Hospital [facility]04-01-2025 Note [facility]03-31-2025 NoteKindred Hospital [facility]03-31-2025 NoteKindred Hospital [facility]03-31-2025 Note [facility]03-31-2025 NoteKindred [facility]03-31-2025 NoteKindred [facility]03-31-2025 Note [facility]03-31-2025 NoteKindred [facility]03-31-2025 NoteKindred Hospital [facility]03-30-2025 Note [facility]03-30-2025 NoteUnGuernsey Memorial Hospital03-30-2025 NoteUnGuernsey Memorial Hospital03-29-2025 Note [facility]03-29-2025 NoteUnGuernsey Memorial Hospital03-29-2025 NoteUnGuernsey Memorial Hospital03-28-2025 NoteConsult rec'd for s/p CABG. Patient had surgery today. Patient is not appropriate for assessment today. SW to follow.[facility]03-28-2025 NotePatient treatments are sufficient at this time, no need for change.[facility]03-28-2025 NoteUnGuernsey Memorial Hospital03-28-2025 NotePeripheral IV Date/Time: 08/16/2024 8:10 AM Inserted by: Federico Ramon MD Placement Needle size: 14 G Laterality: right Location: wrist Local anesthetic: none Site prep: alcohol Technique: anatomical landmarks Attempts: 1UnGuernsey Memorial Hospital03-28-2025 NoteUnGuernsey Memorial Hospital03-28-2025 NoteUnGuernsey Memorial Hospital 08-16-2024 NoteUnGuernsey Memorial Hospital03-28-2025 NoteUnGuernsey Memorial Hospital03-28-2025 NoteUnGuernsey Memorial Hospital 08-15-2024 NoteUnGuernsey Memorial Hospital03-27-2025 NoteBedside spirometry completed and in media analyst.[facility] 08-15-2024 NoteUnGuernsey Memorial Hospital03-27-2025 NoteUnGuernsey Memorial Hospital03-26-2025 NoteUnGuernsey Memorial Hospital 08-14-2024 NoteAdmit to step down Ambulate as tolerated Regular cardiac diet Daily bmp and cbc to monitor kidney function, electrolytes, hgb and wbc Case will be seen and discussed with attending physicianUnGuernsey Memorial Hospital03-26-2025 NoteCT surgery consulted by cardiology, will evaluate patient Will start heparin gtt 4 hours after wrist band removed post cathUnGuernsey Memorial Hospital03-26-2025 NoteWill start heparin gtt 4 hours after wrist band removed post cathUnGuernsey Memorial Hospital03-26-2025 Note Continuous pulse oxUnGuernsey Memorial Hospital03-26-2025 NotePatient underwent heart cath and found to have multi-vessel heart disease Cardiology consultedUnGuernsey Memorial Hospital03-26-[address] of omeprazoleUnGuernsey Memorial Hospital03-11-2025 NoteKindred Hospital Lima02-24-2025 History of Present illness Narrative* Brooke Delgado, NET DEVELOPER WITH [employer] - 07/15/2024 2:00 PM EST Images from the original note were not included. Subjective Patient ID: Emma James (: 1950) is a 73 y.o. male who presents for Shortness of Breath (With exertion. Started on June). HPI History of Present Illness The patient [...] failure, with four out of five siblings dyingbefore the age of 75. Current Outpatient Medications [...] breath since 06/22/2024, particularly with exertion. There isno associated chest pain, fever, or flu-like symptoms. Oxygen saturation was 93 on initial check and is 94 currently. Notably, there is some fluid retention observed, which may be contributing to hissymptoms. An EKG and a chest x-ray have been ordered to further evaluate his condition. The resultswill be reviewed with Dr. Irizarry, and he will be contacted later today to discuss the findings anddetermine the next steps. If the chest x-ray shows pleural effusion or extra fluid, Lasix may be considered to alleviate the fluid and improve the shortness of breath. A referral to cardiology may benecessary to investigate the sudden onset of these [...] follow-up. Brooke Delgado NP documented in this encounterCrittenton Behavioral HealthOhdtqdazhr48-24-3074 History of Present illness Narrative* Jr. Armida Ramirez DO - 05/10/2024 8:15 AM EST Images from the original note were not included. HISTORY OF PRESENT ILLNESS: EST PT Emma James is an 73 y.o. @ male. (EST PT W/ BEVERLY) RECHECK (R) KNEE ; HERE FOR MRI RESULTS 04/29/24 IN [facility] XRAYS, 04/09/24 IN [facility] MRI, 04/29/24 IN [facility] NO MDP / PREDNISONE S/P CORTISONE INJ 04/19/24 NO PHYSICAL THERAPY NO PAIN MGMT PREVIOUS (R) KNEE SCOPE ~40 YRS AGO OLD NOTE : DENIES ANY CURRENT DISCOMFORT - STATES HIS KNEE PAIN HAS ALWAYS BEEN INTERMITTENT. NOTESGOOD ROM ; DENIES ANY INSTABILITY / WEAKNESS. [...] for requiring urgent evaluation. documented in this encounterCrittenton Behavioral HealthAfkddiugkx50-48-9362 History of Present illness Narrative* Pam Jackson NP - 04/24/2024 8:15 AM EST Images from the original note [...] the improvement was because he has not beenhas active. He notes if he is resting [...] No acute bony process noted. Celso Montano GLOBAL CEO-PROJECT MANAGEMENT PROFESSIONAL Assessment/Plan Encounter Diagnoses: ICD-10-CM 1. Right knee pain, unspecified chronicity M25.561 2. Primary osteoarthritis of right knee M17.11 3. Internal derangement of knee, right M23.91 MR knee right wo IV contrast discussion of due to failure of conservative treatment would recommend an MRI of the right knee without contrast, activities as tolerated, f/u s/p MRI to be done at [facility] in [place] documented in this [facility]11-27-2024 Telephone encounter Note* Telephone Encounter - Ashley Valerio NP - 04/17/2024 12:14 PM EST See email [facility] pt. [id number] Miscellaneous Notes* Telephone Encounter - Ashley Valerio NP - 04/17/2024 12:14 PM EST See email to pt. documented in this [facility]11-19-2024 History of Present illness Narrative* Celso Montano NP - 04/09/2024 10:15 AM ESTAssociated Order(s): L Inj/Asp: R knee Post-Procedure Diagnose(s): [...] No acute bony process noted. Celso Montano APRN-PROJECT MANAGEMENT PROFESSIONAL L Inj/Asp: R knee on 04/09/2024 12:39 [...] develop for requiring urgent evaluation. Celso Montano, GLOBAL CEO-PROJECT MANAGEMENT PROFESSIONAL documented in this encounterCr[facility] [id number] History of Present illness Narrative* Dennis Garciastew, DO - 03/22/2024 9:00 AM EDT Images from the original note were not included. Emma James is a 73 y.o. male presents with chief complaint of Six- month office visit, Doctors office visit (Patient would [...] the second looser. This change occurred post-surgery andhas not resolved itself. He has not had [...] with the first being solid and the secondlooser, a pattern that started after his hernia [...] PSA, total and free [facility] Diagnosis Primary osteoarthritis of right knee- Primary Right knee pain, unspecified chronicity documented in this encounter [facility]* Diagnosis Benign fasciculation-cramp syndrome- Primary Unspecified myoneural disorders Obesity, unspecified class, unspecified obesity type, unspecified whether serious comorbidity present Hypercholesteremia (CMS/HCC) Pure hypercholesterolemia Screening PSA (prostate specific antigen) Special screening for malignant neoplasm of prostate documented in this encounter [facility]* Diagnosis Hypercholesteremia (CMS/HCC)- Primary Pure hypercholesterolemia documented in this encounter [facility]* Diagnosis Right knee pain, unspecified chronicity- Primary Primary osteoarthritis of right knee Internal derangement of knee, right documented in this encounter [facility]* Diagnosis Right knee pain, unspecified chronicity- Primary Primary osteoarthritis of right knee documented in this encounter [facility]* Diagnosis Shortness of breath- Primary Bilateral leg edema Edema Shortness of breath documented in this encounter [facility]* Diagnosis Atrial fibrillation, unspecified type [...] hyperlipidemia Mixed hyperlipidemia documented in this encounter [facility]* Diagnosis Mixed hyperlipidemia- Primary S/P CABG x [...] involving multiple sites documented in this encounter [facility] Summary Purpose Family History No Family History Records FoundNo Family History Records FoundNo Family History Records FoundNo Family History Records FoundNo Family History Records FoundNo Family History Records Found Advance Directives Date ActivatedDate InactivatedComments4/ 11:41 AMDate ActivatedDate InactivatedComments09/15/2023 11:41 AM Additional Source Comments (unrecognized sect ion and content) No Status Records FoundNo Status Records FoundNo Status Records FoundNo Status Records FoundNo Status Records FoundNo Status Records Found INFORMATION SOURCE (unrecogn ized section and content) DATE CREATED AUTHOR 11/10/2017 [facility] DATE CREATED AUTHOR AUTHOR'S ORGANIZ ATION 11/10/2017 [facility] DATE CREATED AUTHOR AUTHOR'S ORGANIZ ATION 11/14/2017 [facility] DATE CREATED AUTHOR AUTHOR'S ORGANIZ ATION 03/15/2018 [facility] DATE CREATED AUTHOR AUTHOR'S ORGANIZ ATION 03/25/2025 [facility] DATE CREATED AUTHOR AUTHOR'S ORGANIZ ATION 03/30/2025 [facility] EPIC Care Teams (unrecognized sec tion and content) Team MemberRelationshipSpecialtyStart DateEnd Date Dennis Irizarry, [address] [place] [address] PCP - GeneralInternal Medicine09/27/22 Dennis Irizarry, [address] [place] [address] PCP - ACO Reach10/13/22Team MemberRelationshipSpecialtyStart DateEnd Date Dennis Irizarry, [address] [place] [address] PCP - GeneralInternal Medicine09/27/22 Dennis Irizarry, [address] [place] [address] PCP - ACO Reach10/13/22Team MemberRelationshipSpecialtyStart DateEnd Date Dennis Irizarry, [address] [place] [address] PCP - GeneralInternal Medicine09/27/22 Dennis Irizarry, DO [address] [place] [address] PCP - ACO Reach10/13/22Team MemberRelationshipSpecialtyStart DateEnd Date Dennis Irizarry, DO [address] [place] [address] PCP - GeneralInternal Medicine09/27/22 Dennis Irizarry, DO [address] [place] [address] PCP - ACO Reach10/13/22Team MemberRelationshipSpecialtyStart DateEnd Date Dennis Irizarry, DO [address] [place] [address] PCP - GeneralInternal Medicine09/27/22 Dennis Irizarry, DO [address] [place] [address] PCP - ACO Reach10/13/22Team MemberRelationshipSpecialtyStart DateEnd Date Dennis Irizarry, DO [address] [place] [address] PCP - GeneralInternal Medicine09/27/22 Dennis Irizarry, DO [address] [place] [address] PCP - ACO Reach10/13/22Team MemberRelationshipSpecialtyStart DateEnd Date Dennis Irizarry, DO [address] [place] [address] PCP - GeneralInternal Medicine09/27/22 Dennis Irizarry, [address] [place] [address] PCP - ACO Reach10/13/22Team MemberRelationshipSpecialtyStart DateEnd Date Dennis Irizarry, DO [address] [place] [address] PCP - GeneralInternal Medicine09/27/22 Dennis Irizarry, DO [address] [place] [address] PCP - ACO Reach10/13/22Team MemberRelationshipSpecialtyStart DateEnd Date Dennis Irizarry, DO [address] [place] [address] PCP - GeneralInternal Medicine09/27/22 Dennis Irizarry, DO [address] [place] [address] PCP - ACO Reach10/13/22Team MemberRelationshipSpecialtyStart DateEnd Date Dennis Irizarry, DO [address] [place] [address] PCP - GeneralInternal Medicine09/27/22 Dennis Irizarry, [address] [place] [address] PCP - ACO Reach10/13/22Team MemberRelationshipSpecialtyStart DateEnd Date Dennis Irizarry, DO [address] [place] [address] PCP - GeneralInternal Medicine09/27/22 Dennis Irizarry, DO [address] [place] [address] PCP - ACO Reach10/13/22Team MemberRelationshipSpecialtyStart DateEnd Date Dennis Irizarry, [address] [place] [address] PCP - GeneralInternal Medicine09/27/22 Dennis Irizarry, DO [address] [place] [address] PCP - ACO Reach10/13/22Team MemberRelationshipSpecialtyStart DateEnd Date Dennis Irizarry, DO [address] [place] [address] PCP - GeneralInternal Medicine09/27/22 Dennis Irizarry, DO [address] [place] [address] PCP - ACO Reach10/13/22Team MemberRelationshipSpecialtyStart DateEnd Date Dennis Irizarry, DO [address] [place] [address] PCP - GeneralInternal Medicine09/27/22 Dennis Irizarry DO [address] [place] [address] PCP - ACO Reach10/13/22 Leanne Finn MD [address] [facility] [place] [address] Referring PhysicianPulmonary Jrwukzz08/22/25 Laina Mcquene MD [address] [facility] [place] [address] Referring UfrfmensfStxmpttlkn35/22/25 [facility] Fcfeldbcqlomq74/7/25 Reason for Visit (unrecogniz ed section and content) ReasonCommentsPainReasonCommentsSix-month office visitDoctors office visit Patient would like to discuss only coming in for an appointment once a year. Magnesium oilPatient reports he has been putting magnesium oil on his feet for pain, and this has worked for hispainReasonCommentsFollow-upReasonCommentsPain ReasonCommentsShortness of BreathWith exertion. Started on June.Reason CommentsReview ECHO ResultsHospital Follow-upDeclines Prevnar 20 vaxReason CommentsMedicare Annual Wellness Visit Subsequent FOR RECORDS PERTAINING TO PATIENTS WHO ARE [...] BE BASED ON THE PRIMARY CLINICAL RECORDS. [employer] provides no warranty or guarantee of the accuracy or completeness of information in this document.
--- NOTE | 2025-04-10 06:50 | NM_ITS ---
Patient Name: EMMA ALVARENGA MR#: [id number] : 1950 Exam Date: 04/10/2025 Ordering Doctor: DR YUMIKO ABAD M.D. RADIOLOGY REPORT PROCEDURE: NM POONAM PERF SPECT REST STR COMPARISON: None. INDICATIONS: DYSPNEA ON EXERTION TECHNIQUE: Exam Description: Stress/Rest two day protocol gated SPECT Rest Imagin.4 mCi Tc-99m Cardiolite IV on 04/10/2025 Stress Imaging 31.5 mCi Tc-99m Cardiolite IV on 04/10/2025 Exercise Protocol: Ryder Heart Rate (bpm): Rest: 57 Max: 133 PMHR: 91 Blood Pressure: Rest: 118/76 Max: 178/88 Exercise Time: Minutes: 6 Seconds: 41 Stage Reached: Stage: 3 Mets 9.1 Symptoms: Rest and peak stress ECG findings were pending and the exercise portion of the study was pending per attending physician [facility] . For more details please see separate cardiac stress test report. FINDINGS: QUALITY OF STUDY: Good PERFUSION DEFECT: LOCATION: Inferolateral SIZE: Medium SEVERITY: Mild to moderate TYPE: Reversible WALL MOTION: Normal LV SIZE: 118 mL. TID / TCD: 0.8 LVEF: Calculated EF 53%. SUMMARY: Abnormal myocardial perfusion imaging study CONCLUSION: Abnormal nuclear myocardial perfusion stress images showing evidence of inferolateral ischemia Normal left ventricular systolic function, ejection fraction 53% No transient ischemic dilatation, TID 0.8 EKG portion of stress test is reported separately Dictated by: Thompson Chowdary MD on 04/11/2025 at 17:42 Approved by: Thompson Chowdary MD on 04/11/2025 at 17:47
--- OUTSIDE RECORDS SUMMARY | 2025-04-10 06:50 | XMS_ITS | Clinical Summary ---
Author Organization [facility] Address [address] [place] [address] Care Team Providers Care Steel Pickler Name Role Phone Lenard Penaloza Primary Care Provider [phone] Allergies Active AllergyReactionsCriticalityNoted DateCommentsprocessed poultry [Other]GI Upset04/13/2010 PROCESSED MEATS Medications MedicationSigDispense QuantityRefillsLast FilledStart DateEnd DateStatus omeprazole (PRILOSEC) 20 mg ORAL capsule Take one(1) capsule daily.ctive multivitamin (DAILY MULTIPLE) tablet Take 1 tablet by mouth once daily.ctive traMADol (ULTRAM) 50 mg tablet Take 50 mg by mouth once daily.Active fenofibrate (LOFIBRA) 134 mg capsule Take 134 mg by mouth once daily.Active latanoprost (XALATAN) 0.005 % ophthalmic solution daily at bedtime.01/12/2017Active acetaminophen (TYLENOL) 325 mg tablet Take 2 tablets by mouth every 4 hours as needed. for pain. 60 tablet 03/13/2017Active DULoxetine (CYMBALTA) 30 mg capsule Take 1 capsule by mouth once daily. 30 capsule 03/13/2017Active Active Problems ProblemNoted DateDiagnosed ClzrUvzjcfdmgbgryn66/29/2017Polyarthritis of multiple sites03/19/2017Chronic neck pain03/19/2017Gastroesophageal reflux disease without jcvooxdbpte42/29/2017 Family History Medical HistoryRelationCommentsDiabetesBrotherHeart FailureMotherDiabetesSister RelationStatusCommentsBrotherMotherSister Social History Tobacco UseTypesPacks/DayYears UsedDateSmoking Tobacco: Light SmokerCigars Comments:SOMETIMES Sex and Gender InformationValueDate RecordedSex Assigned at BirthNot on file Legal NgqNhsj24/02/2012 10:44 AM ESTGender IdentityNot on fileSexual Orientation Not on file Last Filed Vital Signs Vital SignReadingTime TakenCommentsBlood Lvxafkfq627/8010 2:14 PM EDT Kxvfl4382 2:14 PM ACFLrnqmsoucii44.4 ??C (97.6 ??F)03/13/2017 2:14 PM EDTRespiratory Rate--Oxygen Saturation--Inhaled Oxygen Concentration--Hlvetm08.3 kg (205 lb 9.6 oz)03/13/2017 2:14 PM JLXKlgwaj660.1 cm (5' 10.5 )03/13/2017 2:14 PM EDTBody Mass Index29.0803/13/2017 2:14 PM EDT Plan of Treatment Health MaintenanceDue DateLast DoneCommentsAnxiety Ofkjsqzug52/05/1968Depression Jjiyuonqa24/05/1968Hepatitis C Pyfqncypy58/05/1968DTaP,Tdap,Td Vaccine (1 - Tdap)1968Lipid Bopikkqng32/05/1985CT Gvruvkxetawk95/05/1995Cologuard (FIT-DNA)10/24/19944690Pumzxzxivxm52/05/1995Colorectal Cancer Ntljzhehd09/05/1995 Fecal Occult Blood10/24/19943028Selpydsoqvspa22/05/1995Pneumococcal Vaccine: 50+ (1 of 1 - PCV)10/25/1999Shingrix Vaccine (1 of 2)10/25/1999Diabetes Screening Advance Directive Hhbaalpjje26/01/2025RSV Vaccine (1 - 1- dose 75+ series)2024ovid-19 Vaccine (1 - 2024-26 season)2025 Influenza Vaccine (#1)2025 Procedures Procedure NamePriorityDate/TimeAssociated DiagnosisCommentsCOMPREHENSIVE METABOLIC GGWIUOyxrfow47/23/2017 4:14 PM EDT Osteoarthritis, unspecified osteoarthritis type, unspecified site from Last 3 Months or Most Recently Relevant to Health Maintenance Results * (ABNORMAL) COMP METABOLIC PANEL (03/13/2017 4:14 PM EDT)ComponentValueRef RangeTest MethodAnalysis TimePerformed AtPathologist SignatureProtein, Total 7.16.3 - 8.0 g/dL03/13/2017 7:37 PM [facility] LABORATORYAlbumin 4.53.9 - 4.9 g/dL03/13/2017 7:37 PM [facility] LABORATORYCalcium 10.08.5 - 10.2 mg/dL03/13/2017 7:37 PM [facility] Bilirubin, Total0.40.2 - 1.3 mg/dL03/13/2017 7:37 PM [facility] LABORATORYAlkaline Xoggkvzwtik2472 - 108 U/L1 7:37 PM [facility] BTTTKOYNRRIIQ6276 - 40 U/L1 7:37 PM [facility] JSLHQUSXFJBbobrup1067 - 99 mg/dL03/13/2017 7:37 PM [facility] LABORATORYComment: The [place] Diabetes Association (ADA) provides guidance for cutoff [...] Standards of Medical Care in Diabetes 2016, [place] Diabetes Association. Diabetes Care. 2016.39(Suppl 1). DQO508 - 24 mg/dL03/13/2017 7:37 PM [facility] Creatinine1.26(H)0.73 - 1.22 mg/dL03/13/2017 7:37 PM [facility] NQPODNUUYNOnhdhe536528 - 144 mmol/L1 7:37 PM [facility] LABORATORYPotassium4.73.7 - 5.1 mmol/L1 7:[facility] BPSMCTWREKTzqkbjut23749 - 105 mmol/L1 7:37 PM [facility] GQMNLXZEVFSM39338 - 30 mmol/L1 7:37 PM [facility] LABORATORYAnion Hyn110 - 18 mmol/L1 7:37 PM [facility] HTXXNMSXPGUUW2672 - 54 U/L1 7:37 PM [facility] eGFR->6003/13/2017 7:37 PM [facility] eGFR-All Other Races57.03/13/2017 7:37 PM [facility] Comment: eGFR (Estimated GFR) Units [...] eGFR may not accurately reflect actual GFR. Specimen (Source)Anatomical Location / LateralityCollection Method / Volume Collection TimeReceived TimeBlood specimen (specimen)BLOOD SPECIMEN / Unknown 03/13/2017 4:14 PM EDT1 4:16 PM EDT Narrative Authorizing ProviderResult TypeResult StatusJoshshireen Ring MDLABORATORY Final ResultPerforming OrganizationAddressCity/State/ZIP CodePhone Number [facility] [address] [place] [address] from Last 3 Months or Most Recently Relevant to Health Maintenance Insurance Care Teams Team MemberRelationshipSpecialtyStart DateEnd Date Lenard Penaloza DO PCP - GeneralFamily Ccuxmhed48/7/12
--- OUTSIDE RECORDS SUMMARY | 2025-04-10 06:50 | XMS_ITS | Clinical Summary ---
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 30 tablet 5Active Additional Information Patient taking differently:500 mg oralEvery 4 hours PRN, mild pain (1-3 pain score), Reported on 04/09/2025 methocarbamol (Robaxin) 500 mg tablet Indications:Muscle acheTake 1 tablet (500 mg) by mouth if needed in the morning, at noon, and at bedtime for muscle spasmsfor up to 10 days. 40 tablet 5Active Additional Information Patient not taking.Reported on 04/09/2025 omeprazole (PriLOSEC) [address] capsule Indications:Coronary artery disease of [place] artery of [place] heart with stable angina pectorisTake 1 capsule (20 mg) by mouth before breakfast. 30 capsule 5Active Additional Information Patient not taking.Reported on 04/09/2025 aspirin 81 mg chewable tablet Indications:Coronary artery disease of [place] artery of [place] heart with stable angina pectorisChew 1 tablet (81 mg) once daily as directed. 90 tablet 304//978682/6Active clopidogrel (Plavix) 75 mg tablet Indications:Coronary artery disease of [place] artery of [place] heart with stable angina pectorisTake 1 tablet (75 mg) by mouth once daily as directed. 90 tablet 304//6Active Additional Information Patient not taking.Reported on 04/09/2025 atorvastatin (Lipitor) 20 mg tablet Indications:Coronary artery disease of [place] artery of [place] heart with stable angina pectorisTake 1 tablet (20 mg) by mouth at bedtime. 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 90 tablet 308///6Active umeclidinium (Incruse Ellipta) 62.5 mcg/actuation inhalation Indications:Asthma, unspecified asthma severity, unspecified whether complicated, unspecified whether persistentInhale 1 puff (62.5 mcg) in the morning. 30 each 5Active Additional Information Patient not taking.Reported on 04/09/2025 albuterol (Ventolin HFA) 90 mcg/actuation inhaler Indications:Asthma, unspecified asthma severity, unspecified whether complicated, unspecified whether persistentInhale 2 puffs every 4 (four) hours if needed for wheezing or shortness of breath. 18 g 510//6Active Additional Information Patient not taking.Reported on 04/09/2025 mometasone-formoterol (Dulera) 100-5 mcg/actuation inhaler Indications:Asthma, unspecified asthma severity, unspecified whether complicated, unspecified whether persistentInhale 2 puffs in the morning and at bedtime. Rinse mouth with water after use to reduce aftertasteand incidence of candidiasis. Do not swallow. 13 g 11151ctive Additional Information Patient not taking.Reported on 04/09/2025 Active Problems ProblemNoted DateDiagnosed DateAbrasion of left tijkos8404/08/2025Foreign body of left eye04/08/2025Generalized osteoarthritis of multiple sites03/29/2025 Overview (04/08/2025): evaluated and followed with [facility] 2352-5010 Hx of atrial fibrillation without current /08/2025bnormal ECG 11/02/2024 Overview (11/21/2024): RBBB/LAHB S/P CABG x Overview (11/21/2024): [facility] LOPEZ TO LAD, SVG TO 2ND OM, SVG TO DISTAL RIGHT CORONARY ARTERY WITH ENDOSCOPIC PROCUREMENT OF SAPHENOUS VEIN GRAFT (Left: Leg Lower), Postoperative anemia due to acute blood loss08/17/20249648Besluufzpyb59/29/2025 Ryqgerq0308/14/2024 Assessment & Plan (08/14/2024 11:06 AM EDT): Continuous pulse ox Coronary artery disease involving the [place] coronary artery of [place] heart 08/14/2024 Assessment & Plan (08/14/2024 2:18 PM EDT): CT surgery consulted by cardiology, will evaluate patient Will start heparin gtt 4 hours after wrist band removed post cath Paroxysmal atrial olsbnjrzdzqg51/26/2025 Assessment & Plan (08/14/2024 2:18 PM EDT): Will start heparin gtt 4 hours after wrist band removed post cath Multi-vessel coronary artery aahchjty96/26/2025bnormal stress test08/07/2024 Assessment & Plan (08/14/2024 11:06 AM EDT): Patient underwent heart cath and found to have multi-vessel heart disease Cardiology consulted Cervical spondylosis without jovazrenfv34/25/9452Xxtsdklawkchwdsmdc53/25/2024 Assessment & Plan (08/14/2024 2:18 PM EDT): Admit to step down Ambulate as tolerated Regular cardiac diet Daily bmp and cbc to monitor kidney function, electrolytes, hgb and wbc Case will be seen and discussed with attending physician Dxmztqv7009/14/2023[facility] coronary artery calcium score less than 4920107/20/2017 Chronic neck pain03/19/2017Gastroesophageal reflux disease without esophagitis 03/19/2017 Assessment & Plan (08/14/2024 11:06 AM EDT): Continue Protonix in place of omeprazole Polyarthritis of multiple sites03/19/2017 Encounters DateTypeDepartmentCare GxojRokehcqlqbw19/19/2025 9:15 AM ESTOffice Visit [address] [address] Laina Mcqueen MD Dyspnea, unspecified type (Primary Dx); S/P CABG (coronary artery bypass graft); Multi-vessel coronary artery stenosis; BARRIENTOS (dyspnea on exertion); Chronic heart failure with preserved ejection fraction (HFpEF) ([facility] 04/09/2025Orders Only [address] [address] Polina Dominguez MA Chest pain, unspecified type (Primary Dx); BARRIENTOS (dyspnea on exertion)03/20/2025 2:30 PM EDTConsult [facility] [address] [place] [address] [place] [phone] Giuliano Finn MD Asthma, unspecified asthma severity, unspecified whether complicated, unspecified whether persistent (Primary Dx); Shortness of mkewya3502/03/2025Telephone [facility] [address] [place] [address] [place] [address] Giuliano Finn MD Pulmonology: New Patient Appt01/23/2025Orders Only [address] [place] [address] Polina Dominguez MA Shortness of breath (Primary Dx)01/15/2025 10:30 AM EDTOffice Visit [facility] [address] [facility] [address] Laina Mcqueen MD Coronary artery disease of [place] artery [place] heart with stable angina pectoris (Primary Dx); Atrial flutter, unspecified type (CMS/HCC); S/P left atrial appendage ligation; BARRIENTOS (dyspnea on exertion)01/15/2025Orders Only [facility] [address] [facility] [place] [address] Polina Dominguez MA BARRIENTOS (dyspnea on exertion) (Primary Dx)01/13/2025Orders Only [facility] [address] [facility] [place] [address] ProviderDenisa MD from Last 3 Months Family History Medical HistoryRelationNameCommentsDiabetesBrotherCoronary artery diseaseFather MerrilHeart failureFatherMerrilHeart failureMotherAdaDiabetesSisterRelationName StatusCommentsBrotherAliveFatherMerrilDeceasedMotherAdaDeceasedSisterAlive Social History Tobacco UseTypesPacks/DayYears UsedDateSmoking Tobacco: FormerCigarsPassive Smoke Exposure: YesSmokeless Tobacco: Never Comments:An occasional cigar Alcohol UseStandard Drinks/WeekCommentsYes3 (1 standard drink = 0.6 oz pure alcohol)[employer] [facility] UtilitiesAnswerDate RecordedIn the past 12 months has the [employer] gas, oil, or water [employer] threatened to shut off services in your home?08/14/2024Humiliation, Afraid, Rape, and Kick questionnaireAnswerDate RecordedWithin the last year, have you been afraid of your partner or ex-partner?08/14/2024Emotionally AbusedNot on file08/14/2024Physically Abused Not on 08/14/2024Sexually AbusedNot on 08/14/2024Overall Financial Resource Strain (CARDIA)AnswerDate RecordedHow hard is [...] were you homeless or living in a nursing home (including now)?No08/14/2024 Hunger Vital SignAnswerDate RecordedWithin the past 12 months, you worried that your food would run out before you got the money to buymore.Never true08/14/2024 Ran Out of Food in the Last YearNot on file08/14/2024Sex and Gender Information ValueDate RecordedSex Assigned at HlierPpid96/19/2025 4:12 PM EDTLegal SexMale 07/22/2024 10:26 AM ESTGender QthyheuoRecr12/19/2025 4:12 PM EDTSexual OrientationHeterosexual or Hnakxaxy27/19/2025 4:12 PM EDT Last Filed Vital Signs Vital SignReadingTime TakenCommentsBlood Qcgjddtl913/6904/09/2025 9:19 AM EST Zvfio717504/09/2025 9:19 AM XEYQjbdzktalvr01.9 ??C (98.4 ??F)08/21/2024 8:00 AM EDTRespiratory Fdmr7946 2:59 PM EDTOxygen Ognizzjzlv10%04/09/2025 9:19 AM ESTInhaled Oxygen Concentration--Dhdokb62.6 kg (213 lb)04/09/2025 9:19 AM EST Lnkxps289.3 cm (5' 11 )04/09/2025 9:19 AM ESTBody Mass Index29.7104/09/2025 9:19 AM EST Plan of Treatment DateTypeDepartmentCare Team (Latest Contact Info)Shkdmrwtlfj62/11/2025 2:00 PM ESTOffice Visit [facility] [address] [place] [phone] Laina Mcqueen MD [address] [facility] [place] [address] 05/08/2025 1:00 PM ESTOffice Visit [facility] [facility] [place] [address] Giuliano Finn MD [address] [facility] [place] [phone] Health MaintenanceDue DateLast DoneCommentsCT Nfqcrybwzgfb68/05/1951Colonoscopy 1949FOBT1949Medicare Annual Wellness (AWV)1949Sigmoidoscopy 1950Adult Weqxpts33Zoster Vaccines (2 of 2)05/25/2020 03/30/2020, 07/14/2010FIT/4COVID-19 Vaccine ( season)2025Influenza Vaccine (#1)2025Depression Pxrxxlchm22/10/2026 08/29/2024Fall Risk Hpaqrcbpj34/olorectal Cancer Screening 09/27/2026FIT-DNA/01/2024, 04/21/2020Pneumococcal Vaccine: 50+ Years Ausjvtygt49/05/2019, 04/19/2018HIB VaccinesAged OutNo longer eligible based on patient's age to complete this topicHPV VaccinesAged OutNo longer eligible based on patient's age to complete this topicIPV VaccinesAged OutNo longer eligible based on patient's age to complete this topicMeningococcal B VaccineAged OutNo longer eligible based on patient's age to complete this topicMeningococcal VaccineAged OutNo longer eligible based on patient's age to complete this topic Rotavirus VaccinesAged OutNo longer eligible based on patient's age to complete this topic Insurance * Guarantor: Lang James TypeRelation to PatientDate of PhoneBilling AddressPersonal/YgszcqDjxx69/05/1951 [address] [address] [place] [address] Advance Directives * Full Code (Latest Code Status on File) Date ActivatedDate InactivatedComments08/14/2024 9:56 AM08/21/2024 6:28 PM Care Teams Team MemberRelationshipSpecialtyStart DateEnd Date Sacha Irizarry MD [address] [place] [address] PCP - GeneralInternal Medicine07/29/24
--- OUTSIDE RECORDS SUMMARY | 2025-04-10 06:50 | XMS_ITS | Clinical Summary ---
Author Organization [facility] Address [address] [place] [address] Care Team Providers Care Curriculum Advisory Teacher Name Role Phone Dennis Irizarry DO Primary Care Provider Dennis Irizarry DO Unavailable [phone] Giuliano Fnin MD Unavailable Laina Abad MD Unavailable [phone] Allergies No known active allergies Medications MedicationSigDispense QuantityRefillsLast FilledStart DateEnd DateStatus latanoprost (Xalatan) 0.005 % ophthalmic solution 4Active timolol (Timoptic) 0.5 % ophthalmic solution 4Active Magnesium 500 MG capsule 1 (one) time each day at the same timeActive acetaminophen (Tylenol) 500 MG tablet Take 500 mg by mouth every 6 (six) hours if dgxsqu555Active omeprazole (PriLOSEC) [address] capsule Indications:Gastroesophageal reflux disease without esophagitisTAKE 1 CAPSULE (20 MG) BY MOUTH IN THE MORNING. TAKE BEFORE MEALS. 90 capsule 5Active ASPIRIN 81 PO Take 81 mg by mouth 1 (one) time each dayActive furosemide (Lasix) 40 MG tablet Take 40 mg by mouth Daily in the MorningActive mometasone-formoterol (Dulera 100) 100-5 MCG/ACT inhaler Inhale 1 puff Daily Rinse mouth with water after use to reduce aftertaste and incidence of candidiasis. Do not swallow.Active albuterol HFA 90 mcg/act inhaler Inhale 2 puffs every 4 (four) hours if needed for wheezingActive atorvastatin (Lipitor) 40 MG tablet Indications:Mixed hyperlipidemiaTake 1 tablet (40 mg) by mouth Daily 30 tablet 505/ctive atorvastatin (Lipitor) 10 MG tablet Indications:HypercholesteremiaTake 1 tablet (10 mg) by mouth Daily 30 tablet 311/560921/11/2024Discontinued(Med list cleanup) Active Problems ProblemNoted DateDiagnosed DateHx of atrial fibrillation without current mxvtzcnmzu22/08/2025Generalized osteoarthritis of multiple sites03/29/2025 Overview (03/29/2025): evaluated and followed with [facility] rheum [id number] Status post ligation of left atrial gsqkpybzm17/14/2025S/P Maze operation for atrial zovstuotbtvv65/14/2025trial /14/2025Mixed hyperlipidemia 11/02/2024S/P CABG x Overview (11/02/2024): [facility] LOPEZ TO LAD, SVG TO 2ND OM, SVG TO DISTAL RIGHT CORONARY ARTERY WITH ENDOSCOPIC PROCUREMENT OF SAPHENOUS VEIN GRAFT (Left: Leg Lower), Gastroesophageal reflux disease without uygtdbgvwzd60/29/2017 Resolved Problems ProblemNoted DateDiagnosed DateResolved DateAbnormal ECG Overview (11/02/2024): RBBB/LAHB Cervical spondylosis without hsabyjutsh03hronic pain disorder 2925Btzqfuaoqtxosblefe24/25/202406/3537Tgvsmvz03/25/2024 11/02/2024gatston coronary artery calcium score less than 9185707/20/2017 03/28/2025 Overview (11/02/2024): 2.38 CACS Chmijhnerugwjk43hronic neck pain Encounters DateTypeDepartmentCare JmhcFibncylxkek25/07/2025 9:00 AM ESTOffice Visit [facility] [address] [place] [address] Dennis Irizarry DO Mixed hyperlipidemia (Primary Dx); S/P CABG x 3; S/P Maze operation for atrial fibrillation; Status post ligation of left atrial appendage; Gastroesophageal reflux disease without esophagitis; Hx of atrial fibrillation without current medication; Medicare annual wellness visit, subsequent; ACP (advance care planning); Generalized osteoarthritis of multiple sites03/28/20251460Iweynr35/27/2025Clinisync Result Encounter [facility] External Department Unsolicited Provider, Generic External Data from Last 3 Months Immunizations ImmunizationAdministration DatesNext DueHep A / Hep B007/14/2010,05/11/2010, 08/28/2009Pneumococcal Conjugate PCV 13106/19/2017Pneumococcal Polysaccharide UJGK794405/26/20180357Dokw50/05/2009Zoster, Eldswslisoi50/09/2020Zoster, live 07/14/2010 Family History Medical HistoryRelationNameCommentsDiabetesBrotherHenryHeart diseaseMaternal GrandmotherEthelHeart failureMotherAdaHypertensionMotherAdaHeart diseasePaternal GrandfatherWGCancerPaternal GrandmotherLidaDiabetesPaternal GrandmotherLida DiabetesSisterMary, NadiaRelationNameStatusCommentsBrotherHenryMaternal GrandmotherEthelMotherAdaPaternal GrandfatherWGPaternal GrandmotherLidaSister Nadia Paul Social History Tobacco UseTypesPacks/DayYears UsedDateSmoking Tobacco: Some DaysCigarsSmokeless Tobacco: Never Tobacco Cessation:Ready to Q uit: Not Asked; Counseling Given: Not Answered Alcohol UseStandard Drinks/WeekCommentsYes3 (1 standard drink = 0.6 oz pure alcohol)OccasionalAUDIT-CAnswerDate RecordedQ1: How often do you have a drink containing alcohol?2-4 times a month09/15/2023Q2: How many drinks containing alcohol do you have on a typical day when you are drinking?1 or Q3: How often do you have six or more drinks on one occasion?Never09/15/2023HQ-2 AnswerDate RecordedPatient Health Questionnaire-2 Dengk37405/28/2024Sex and Gender InformationValueDate RecordedSex Assigned at BirthNot on fileLegal SexMale 08/03/2022 6:48 PM EDTGender IdentityNot on fileSexual OrientationNot on file 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 Start DateJob 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, 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, 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 Other Agricultural ManagersNot on fileNot on fileNot on file Last Filed Vital Signs Vital SignReadingTime TakenCommentsBlood Iwpmgyjf955/6203/28/2025 9:16 AM EST Ijppe155103/28/2025 9:16 AM ESTTemperature--Respiratory Rate--Oxygen Dawacifmiq70% 03/28/2025 9:16 AM ESTInhaled Oxygen Concentration--Jomsli92.9 kg (207 lb) 03/28/2025 9:16 AM LEEZxjmol444.1 cm (5' 10.5 )03/28/2025 9:16 AM ESTBody Mass Index29.28105/28/2024 9:16 AM EST Plan of Treatment DateTypeDepartmentCare Team (Latest Contact Info)Vjjmolhxcfl79/13/2026 9:00 AM ESTOffice Visit [facility] [address] [facility] [address] [place] [address] Dennis Irizarry DO [address] [facility] [address] [place] [address] Health MaintenanceDue DateLast DoneCommentsCT Xjkdktiztwbw61/05/1950Colonoscopy 1950FIT1950FOBT1950 1464Hmdmtyeuvcyzg79/05/1950Influenza Vaccine (#1)2025Postponed from 01/20/2025 (Patient Refused)Medicare Annual Wellness (AWV)/11/2024, 09/02/2022, 2Colorectal Cancer Aimivzwat21/09/2027FIT-DNA/01/2024, 04/21/2020, 04/21/2020 Pneumococcal Vaccine: 65+ TfzubXjqmwtlet03/05/2019, 04/19/2018COVID-19 Vaccine Discontinued Procedures Procedure NamePriorityDate/TimeAssociated DiagnosisCommentsXR CHEST 2V01/15/2025 12:11 PM EDT LAB COLOGUARD?? COLON CANCER EAIFYOVjgflvq17/09/2024 4:00 PM EDT Colon cancer screening from Last 3 Months or Most Recently Relevant to Health Maintenance Results * XR CHEST 2V (01/15/2025 12:11 PM EDT)Anatomical RegionLateralityModalityOther Specimen (Source)Anatomical Location / LateralityCollection Method / Volume Collection TimeReceived Time01/15/2025 12:11 PM EDT Narrative 01/15/2025 12:14 PM EDT [facility] ?[address] ? [place] [address] ?XRay Report ? Signed ? Patient: EMMA JAMES ?MR#: [id number] ?? : 1950 ?Acct:[id number] ?? Age/Sex: 74 / M ?ADM Date: 01/15/25 ?? Loc: RAD ? Attending Dr: Laina Abad M.D. ? Ordering Physician: Laina Abad M.D. ?? Date of Service: 01/15/25 ?? Procedure(s): XR chest 2V ?? Accession Number(s): [id number] ? cc: Laina Abad M.D.; DENNIS IRIZARRY ? [facility] ? [address] ? [place] [address] ? Patient Name: ?? EMMA JAMES ? MRN: [id number] ? date: 1950 ?Sex: M ?? Assigned Patient Location: RAD ?? Current Patient Location: RAD ?? Accession/Order Number: [id number] ?? Exam Date: 01/15/2025 ??11:25 ?Report Date: 01/15/2025 ??12:11 ? At the request of: ?? EHAB ??ELTAHAWY ??MD ? Procedure: ??XR chest 2V ? PA AND LATERAL CHEST: ? CLINICAL HISTORY: Dyspnea On Exertion ? COMPARISON: None ? Median sternotomy wires are present. There is no focal parenchymal ?? consolidation, effusion or pneumothorax. ?? The cardiac, hilar and mediastinal ?? silhouettes are within normal limits. ?? There is no vascular congestion. ?? The ?? visualized bony thorax is intact. ?? There is subtle dextroscoliotic curvature ?? as well as endplate spurring. ? XR/XR chest 2V ?? IMPRESSION: ? NO ACUTE CARDIOPULMONARY ABNORMALITY. ? Impression dictated by: Beti Khoury M.D. ??01/15/2025 12:11 PM ? Dictation Location: RADIO-PC-30 ? Electronically authenticated by: [id number] ??Y ?? Date: 01/15/2025 ??12:11 ? Dictated By: ?Beti Khoury M.D. ? Signed By: ?01/15/25 1214 ? DD/ 1211 ? TD/TT: ? Laborer Heading: Procedure Note Radiology, Radiologist, - 01/15/2025 [place] [address] XRay Report Signed Patient: EMMA JAMES MMR#: [id number] : 1950Acct:[id number] Age/Sex: 74 / MADM Date: 01/15/25 Loc: [facility] Attending Dr: Laina Abad M.D. Ordering Physician: Laina Abad M.D. Date of Service: 01/15/25 Procedure(s): XR chest 2V Accession Number(s): [id number] cc: Laina Abad M.D.; DENNIS IRIZARRY [place] [id number] Patient Name: EMMA JAMES MRN: [id number] date: 1950 Sex: M Assigned Patient [facility]: [facility] Current Patient Location: RAD Accession/Order Number: [id number] Exam Date: 01/15/2025 11:25 Report Date: 01/15/2025 12:11 At the request of: LAINA ABAD MD Procedure: XR chest 2V PA AND LATERAL CHEST: CLINICAL HISTORY: Dyspnea On Exertion COMPARISON: None Median sternotomy wires are present. There is no focal parenchymal consolidation, effusion or pneumothorax. The cardiac, hilar andmediastinal silhouettes are within normal limits. There is no vascular congestion.The visualized bony thorax is intact. There is subtle dextroscolioticcurvature as well as endplate spurring. XR/XR chest 2V IMPRESSION: NO ACUTE CARDIOPULMONARY ABNORMALITY. Impression dictated by: Beti Khoury M.D. 01/15/2025 12:11 PM Dictation Location: [place] [address] Electronically authenticated by: [id number] Y Date: 2:11 Dictated By: Beti Khoury M.D. Signed By:01/15/25 1214 DD/ 1211 TD/TT: Laborer Heading: Authorizing ProviderResult TypeResult StatusGeneric External Data Provider CLINISYNC IMAGINGFinal Result * Cologuard?? colon cancer screening (09/28/2023 4:00 PM EDT)ComponentValueRef RangeTest MethodAnalysis TimePerformed AtPathologist SignatureNONINV COLON CA DNA+OCC BLD SCRN STL-PGRUgvkwhctXeorvynj97/17/2024 9:50 AM EDTEXTelelogos (CLIA #:[id number])Comment: NEGATIVE TEST RESULT. A negative Cologuard result indicates a low likelihood that a colorectal cancer (CRC) or advanced adenoma (adenomatous polyps with more advanced pre-malignant features) ??is present. The chance that a person with a negative Cologuard test has a colorectal cancer is less than 1in 1500 (negative predictive value >99.9%) or has an advanced adenoma is less than 5.3% (negative predictive value 94.7%). These data are based on a prospective cross-sectional study of 10,000individuals at average risk for colorectal cancer who were screened with both Cologuard and colonoscopy. (Nahun Field al, N Engl J Med 2014;370(14):5430-5368) The normal value (reference range) for this assay is negative. COLOGUARD RE-SCREENING RECOMMENDATION: Periodic colorectal cancer screening is an important part ofpreventive healthcare for asymptomatic individuals at average risk for colorectal cancer. ??Following a negative Cologuard result, the [place] Cancer Society and U.S. Multi-Society Task Force screening guidelines recommend a Cologuard re-screening interval of 3 years. References: [place] Cancer Society Guideline for Colorectal Cancer Screening: https://www.cancer.or g/cancer/mwucj-uvraax-pfkhkt/wornkxpip-hhksompuc-lmchrzx/acs-recommendations.htm ele; Hebert QUIGLEY, Khushboo JUNIOR, Misa HAMPTON, Colorectal Cancer Screening: Recommendations for Physicians and Patients from the U.S. Multi-Society Task Force on Colorectal Cancer Screening , Am J Gastroenterology 2017; 112:6078-6090. TEST DESCRIPTION: Composite algorithmic analysis of stool DNA-biomarkers with hemoglobin immunoassay. ?? Quantitative values of individual biomarkers are not reportable and are not associated with individual biomarker result reference ranges. Cologuard is intended for colorectal cancer screening ofadults of either sex, 45 years or older, [...] (Nahun Field al, N Engl J Med 2014;370(14):2990-7303.) Cologuard may produce a false negative or false positive result (no colorectal cancer or precancerous polyp present at colonoscopy follow up). A negative Cologuard test result does not guarantee the absence of CRC or advanced adenoma (pre-cancer). The current Cologuard screening interval is every 3 years. ([place] Cancer Society and U.S. Multi-Society Task Force). Cologuard performance data in a 10,000 patient pivotal study using colonoscopy as the reference method can be accessed at the following location: www.VivaRay.Medsphere Systems/results. Additional description of the Cologuard test process, warnings and precautions can be found at www.TuneWikird.com. Specimen (Source)Anatomical Location / LateralityCollection Method / Volume Collection TimeReceived TimeStool specimen (specimen)09/28/2023 4:00 PM EDT 09/30/2023 8:51 AM EDT Narrative Authorizing ProviderResult TypeResult StatusCacarmen MARTIN [facility] ORDERABLESFinal ResultPerforming OrganizationAddressCity/State/ZIP CodePhone Number [employer] (CLIA #:[id number]) [address] [place] [address], from Last 3 Months or Most Recently Relevant to Health Maintenance Insurance [place] [id number] Advance Directives * DNR (Latest Code Status on File) Date ActivatedDate InactivatedComments09/15/2023 11:41 AM Care Teams Team MemberRelationshipSpecialtyStart DateEnd Date Dennis Irizarry DO [address] [place] [address] PCP - GeneralInternal Medicine09/27/22 Dennis Irizarry DO [address] [place] [address] PCP - ACO Reach10/13/22 Giuliano Finn MD [address] [facility] [place] [address] Referring PhysicianPulmonary Xwrhjct84/22/25 Laina Abad MD [address] [place] [address] Referring SrdhnezgiTnhqwlinrs78/22/25 [facility] Zmqzqprxowkyk80/7/25
--- OUTSIDE RECORDS SUMMARY | 2025-04-10 06:50 | XMS_ITS | Clinical Summary ---
Author Organization [facility] Address [address] [place] [address] Phone Care Team Providers Care Vehicle Upholsterer Name Role Phone Unavailable Primary Care Provider Unavailabl e Social History Tobacco UseTypesPacks/DayYears UsedDateSmoking Tobacco: Never AssessedSex and Gender InformationValueDate RecordedSex Assigned at BirthNot on fileLegal Sex Male04/16/2022 7:36 PM ESTGender IdentityNot on fileSexual OrientationNot on file Plan of Treatment Not on file
--- OUTSIDE RECORDS SUMMARY | 2025-04-10 06:50 | XMS_ITS | Encounter Summary ---
Author Organization [facility] Address [address] [place] [address] Care Team Providers Care Administrative Volunteer Name Role Phone Sacha Irizarry DO Primary Care Provider Sacha Irizarry DO Unavailable [phone] Giuliano Finn MD Unavailable Laina Mcqueen MD Unavailable [phone] Encounter Details DateTypeDepartmentCare Team (Latest Contact Info)Sttifsofolf15/07/2025Travel Social History Tobacco UseTypesPacks/DayYears UsedDateSmoking Tobacco: Some [...] InformationValueDate RecordedSex Assigned at BirthNot on fileLegal UipBpnh0508/03/2022 6:48 PM EDTGender IdentityNot on fileSexual OrientationNot on file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 Start DateJob End DateFarmers, Ranchers, and Other Agricultural ManagersNot on fileNot on fileNot on file documented as of this encounter Functional Status * Over the past 2 weeks, how often have you been bothered by any of the following problems?QuestionAnswerDate of AssessmentAuthorLittle interest or pleasure in doing thingsNot at all03/28/2025 9:00 AM Urmila Fox LPN Feeling down, depressed, or hopelessNot at all03/28/2025 9:00 AM Urmila Fox LPNPatient Health Questionnaire-2 Psxqg06105/28/2024 9:00 AM Urmila Fox LPN documented as of this encounter Plan of Treatment DateTypeDepartmentCare Team (Latest Contact Info)Nigdmkhssuo16/13/2026 9:00 AM ESTOffice Visit [facility] [address] [place] [address] Sacha Irizarry DO [address] [place] [address] documented as of this encounter Visit Diagnoses Not on filedocumented in this encounter Care Teams Team MemberRelationshipSpecialtyStart DateEnd Date Sacha Irizarry DO [address] [place] [address] PCP - GeneralInternal Medicine09/27/22 Sacha Irizarry DO [address] [place] [address] PCP - ACO Reach10/13/22 Giuliano Finn MD [address] [facility] [place] [phone] Referring PhysicianPulmonary Sxbzhmq96/22/25 Laina Mcqueen MD [address] [facility] [place] [address] Referring HotugopokQnusnmujao46/22/25 [facility] Uncqbryipycev55/7/25documented as of this encounter
--- OUTSIDE RECORDS SUMMARY | 2025-04-10 06:50 | XMS_ITS | Encounter Summary ---
Author Organization [facility] Address [address] [place] [address] Care Team Providers Care Teaching Associate Name Role Phone Sacha Irizarry MD Primary Care Provider [phone] Encounter Details DateTypeDepartmentCare Team (Latest Contact Info)Issimylnjkw94/19/2025Orders Only [facility] [place] [address] [place] [address] Polina Dominguez MA Chest pain, unspecified type (Primary Dx); BARRIENTOS (dyspnea on exertion) Social History Tobacco UseTypesPacks/DayYears UsedDateSmoking Tobacco: FormerCigarsPassive Smoke Exposure: YesSmokeless Tobacco: Never Comments:An occasional cigar Alcohol UseStandard Drinks/WeekCommentsYes3 (1 standard drink = 0.6 oz pure alcohol)SocialFULTON COUNTY HE[facility] CENTER UtilitiesAnswerDate RecordedIn the past 12 months has the electric, gas, oil, or water [employer] threatened to shut off services in your home?08/14/2024Humiliation, Afraid, Rape, and Kick questionnaireAnswerDate RecordedWithin the last year, have you been afraid of your partner or ex-partner?No08/14/2024Emotionally AbusedNot on file08/14/2024Physically Abused Not on file08/14/2024Sexually [...] homeless or living in a snf (including now)?No08/14/2024 Hunger Vital SignAnswerDate RecordedWithin the past 12 months, you worried that your food would run out before you got the money to buymore.Never true08/14/2024 Ran Out of Food in the Last YearNot on file08/14/2024Sex and Gender Information ValueDate RecordedSex Assigned at OnbohXcbn72/19/2025 4:12 PM EDTLegal SexMale 07/22/2024 10:26 AM ESTGender KifvvbsaQfis80/19/2025 4:12 PM EDTSexual OrientationHeterosexual or Ixxyyrdl97/19/2025 4:12 PM EDTdocumented as of this encounter Functional Status * BPAnswerDate of HbzkxjsrxeIktvtd020/6911/19/2025 9:19 AM Helga Crisostomo MA * PulseAnswerDate of TbmitonvjmBoixfq1669/19/2025 9:19 AM Helga Crisostomo MA * Audit Alcohol ScreeningQuestionAnswerDate of AssessmentAutrHow often do you have a drink containing alcohol? 9:29 AM Helga Crisostomo MA * Patient PositionAnswerDate of LunncxgrznIjixdmNrwyusq59/19/2025 9:19 AM Helga Cantrell MA * BPAnswerDate of RrxdahfjcfNzjvwe112 9:19 AM Helga Crisostomo MA * PulseAnswerDate of CbektsckwkIaseft3445/19/2025 9:19 AM Helga Crisostomo MA * AtT9JyjkibHkba of JkflkewpewGsfcsp8484 9:19 AM Helga Crisostomo MA * BP LocationAnswerDate of AssessmentAuthorRight arm04/09/2025 9:19 AM Helga Cantrell MA * Audit Alcohol ScreeningQuestionAnswerDate of AssessmentAuthorHow often do you have a drink containing alcohol? 9:29 AM Helga Crisostomo MA * Patient PositionAnswerDate of LhslitpgdhXnhccrGxywujc32/19/2025 9:19 AM Helga Cantrell MA documented as of this encounter Plan of Treatment DateTypeDepartmentCare Team (Latest Contact Info)Zsljjnwskqb23/11/2025 2:00 PM ESTOffice Visit [facility] [address] [place] [address] Laina Mcqueen MD [address] [facility] [place] [phone] 05/08/2025 1:00 PM ESTOffice Visit [facility] [address] [place] [address] [place] [address] Giuliano Finn MD [address] [facility] [place] [address] NameTypePriorityAssociated DiagnosesOrder ScheduleTreadmill Stress Myocardial Perfusion ImagingCardiac ServicesRoutine Chest pain, unspecified type BARRIENTOS (dyspnea on exertion) Expected: 04/09/2025 (Approximate), Expires: 04/09/2027documented as of this encounter Visit Diagnoses Diagnosis Chest pain, unspecified type- Primary BARRIENTOS (dyspnea on exertion) Other dyspnea and respiratory abnormality documented in this encounter Care Teams Team MemberRelationshipSpecialtyStart DateEnd Date Sacha Irizarry MD [address] [place] [address] PCP - GeneralInternal Medicine07/29/24documented as of this encounter
--- NOTE | 2025-04-10 08:53 | PC.NURSE ---
Patient tolerated Treadmill cardiolyte stress test without problems. SOB with exertion reported, relieved with rest. Denied chest pain or other symptoms. Symptom free when leaving stress lab.
--- NOTE | 2025-04-11 09:04 | P.STRESS_ITS ---
Stress Test Stress Test Requesting physician: Laina Mcqueen Procedure: This was a Treadmill stress test with myocardial perfusion imaging performed at the [facility] on 04/10/2025. Intravenous line was secured. The patient was attached to electrocardiographic monitoring. Baseline vital signs and ECG were obtained. The patient exercised on the treadmill according to the Ryder protocol. Cardiolite was administered at peak exercise. The patient then went on to obtain myocardial perfusion imaging. Sitting heart rate was 57 bpm and peak heart rate was 133 bpm representing 91% of maximum predicted heart rate. Resting blood pressure was 118/76 and peak blood pressure was 178/88. The patient exercised on the treadmill for 6 minutes and 41 seconds and reached stage III of the Ryder protocol, achieving 9.1 METS. General Information: Reason for Stress Test: Shortness of breath. Cardiac History and Risk Factors: Hyperlipidemia, CAD, SP CABG. Resting 12 - Lead Electrocardiogram: Sinus bradycardia, left axis deviation, right bundle branch block, nonspecific ST changes. Stress Test: Protocol: Treadmill exercise, Ryder protocol. Exercise Capacity: Good. Blood Pressure Response: Resting normal blood pressure, exaggerated blood pressure response to exercise. Rhythm: Sinus with occasional PVCs. ST - Response: No ischemic ST changes seen. Patient Response: Shortness of breath with exertion, resolved with rest. Interpretation: 1. No evidence of ischemic ECG changes seen during treadmill exercise. 2. Rodriguez treadmill score of +3 is associated with intermediate risk for long- term cardiac events. 3. Myocardial perfusion images will be reported separately.
== END 2025-04-10 06:46 | disposition home or self-care (01) ==
LOC: NM 06:46
PROVIDERS: Family Provider Internal Medicine; PCP Internal Medicine; Visit Provider Internal Medicine Interventional Cardiology
DX: R07.9 Chest pain, unspecified (principal); R06.09 Other forms of dyspnea
CPT/HCPCS: 78452; 93017; A9500

== ENCOUNTER 2025-04-30 07:54 | Outpatient (OUT) | payer MEDICARE, OTHER, SELFPAY ==
--- OUTSIDE RECORDS SUMMARY | 2025-04-30 08:04 | XMS_ITS | CCD ---
Author Organization [facility] Care Team Providers Care Manager Stylist Name Role Phone JUAN C DENNIS Unavailable [...] Unavailable Dennis Irizarry DO Primary Care Provider [phone] Dennis Irizarry DO Unavailable REAL HOWARD Referring Unavailabl e REAL HOWARD [...] (2 sources)OTHER; Translations: [OTHER]Propensity to adverse reactions (disorder)39-43-6603MDQNjcrvtzpjOhiohealth [facility] Repository (1 source)No Known Drug AllergiesDrug allergy (disorder)[facility] Repository (1 source)Mis-Food; Translations: [Mis-Food]Food allergy (disorder)[facility]FTSelect [facility] Medications Current Medications MedicationDrug Class(es)DatesSig (Normalized)Sig (Original)acetaminophen 500 mg oral tablet (14 sources)Start: 74-78-2044xugh 1 tablet by mouth every six hours as needed acetaminophen (Tylenol) 500 MG tablet Take 500 mg by mouth every 6 (six) hours if needed [id number] 200 actuat albuterol 0.09 mg/actuat metered dose inhaler (2 sources)beta2-Adrenergic Agonisttake 2 puff(s) by inhalation every four hours for wheezingalbuterol HFA 90 mcg/act inhaler Inhale 2 puffs every 4 (four) hours if needed for wheezing Activeamiodarone hydrochloride 200 mg oral tablet (6 sources)AntiarrhythmicStart: 07-30-2024 End: 13-27-4244eonx 1 tablet by mouth once dailyamiodarone (Pacerone) 200 MG tablet Take 200 mg by mouth Daily 07/30/2024 11/11/2024 Activeaspirin 81 mg chewable tablet (9 sources)Platelet Aggregation Inhibitor, Nonsteroidal Anti-inflammatory Drug Start: 08-21-2024 End: 02-87-8652msjphbm 81 MG chewable tablet Chew 81 mg in the morning. 08/21/2024 11/24/2024 Activetake 81 mg by mouth once dailyASPIRIN 81 PO Take 81 mg by mouth 1 (one) time each day Activeatorvastatin 40 mg oral tablet (20 sources)HMG-CoA Reductase InhibitorStart: 03-28-2025 End: 24-44-3641yhyb 1 tablet by mouth once dailyatorvastatin (Lipitor) 40 MG tablet Indications: Mixed hyperlipidemia Take 1 tablet (40 mg) by mouth Daily 30 tablet 5 03/28/2025 09/24/2025 ActiveStart: 04-17-2024 End: 62-79-0992meew 1 tablet by mouth once dailyatorvastatin (Lipitor) 10 MG tablet Indications: Hypercholesteremia Take 1 tablet (10 mg) by mouth Daily 30 tablet 3 04/17/2024 03/28/2025 Discontinued (Med list cleanup)clopidogrel 75 mg oral tablet (8 sources)P2Y12 Platelet InhibitorStart: 08-21-2024 End: 77-59-7874mzlb 1 tablet by mouth in the morningclopidogrel (Plavix) 75 MG tablet Take 75 mg by mouth in the morning. 08/21/2024 11/27/2024 Mqhang98 actuat formoterol fumarate 0.005 mg/actuat / mometasone furoate 0.1 mg/actuat metered dose inhaler (2 sources)Corticosteroid, beta2-Adrenergic Agonisttake 1 puff(s) by mouth once dailymometasone-formoterol (Dulera 100) 100-5 MCG/ACT inhaler Inhale 1 puff Daily Rinse mouth with waterafter use to reduce aftertaste and incidence of candidiasis. Do not swallow. Activelatanoprost 0.05 mg/ml ophthalmic solution (20 sources)Prostaglandin AnalogStart: 03-64-9999oogxjfpivup (Xalatan) 0.005 % ophthalmic solution 08/01/2023 ActiveStart: 18-39-7440ucqd 1 drop(s) into the eye(s) at bedtimelatanoprost (Xalatan) 0.005 % ophthalmic solution PLACE 1 DROP IN BOTH EYES AT BEDTIME 08/01/2023 Activemagnesium oxide 500 mg oral capsule (20 sources)Magnesium 500 MG capsule 1 (one) time each day at the same time Activeomeprazole 20 mg delayed release oral capsule (20 sources)Proton Pump InhibitorStart: 30-77-6740aksi 1 capsule by mouth before mealtimeomeprazole (PriLOSEC) [address] capsule Indications: Gastroesophageal reflux disease without esophagitis TAKE 1 CAPSULE (20 MG) BY MOUTH IN THE MORNING. TAKE BEFORE MEALS. 90 capsule 3 12/17/2024 ActiveStart: 54-71-0605mjbo 1 capsule by mouth before mealtimeomeprazole (PriLOSEC) [address] capsule Indications: Gastroesophageal reflux disease without esophagitis TAKE 1 CAPSULE (20 MG) BY MOUTH IN THE MORNING. TAKE BEFORE MEALS. 90 capsule 3 10/26/2023 Tfngqn06 hr timolol 5 mg/ml ophthalmic solution (20 sources)beta-Adrenergic BlockerStart: 33-12-6703qvrlwcv (Timoptic) 0.5 % ophthalmic solution 07/05/2023 ActiveStart: 32-90-5422yxiofam (Timoptic) 0.5 % ophthalmic solution INSTILL 1 DROP TO BOTH EYES EACH MORNING. 07/05/2023 Active Completed/Discontinued Medications MedicationDrug Class(es)DatesSig (Normalized)Sig (Original)docusate sodium 100 mg oral capsule (3 sources)Start: 08-21-2024 End: 26-06-0787Vfebqwwl Sodium (DSS) 100 MG capsule Take 200 mg by mouth 2 (two) times a day as needed 08/21/2024 09/20/2024 Expiredferrous sulfate 325 mg oral tablet (2 sources)Start: 08-21-2024 End: 36-60-3559nmga 1 tablet by mouth at mealtimeferrous sulfate 325 (65 Fe) MG tablet Take 325 mg by mouth in the morning. Take with meals. 08/21/2024 09/02/2024 Discontinued (Therapy completed)furosemide 40 mg oral tablet (5 sources)Loop DiureticStart: 08-21-2024 End: 64-06-2756prdr 1 tablet by mouth in the morning as neededfurosemide (Lasix) 40 MG tablet Take 40 mg by mouth in the morning. PRN. 08/21/2024 09/20/2024 Gpoduxa44 hr guaiFENesin 600 mg extended release oral tablet (2 sources)Start: 08-21-2024 End: 59-27-5383xjoz 1 tablet by mouth in the morning as needed, then take 1 tablet by mouth every twelve hours in the evening as neededguaiFENesin (Mucinex) 600 MG 12 hr tablet Take 600 mg by mouth in the morning and 600 mg in the even ing. PRN. 08/21/2024 09/02/2024 ExpiredIbuprofen (17 sources)Nonsteroidal Anti-inflammatory Drug End: 41-19-6604Xlrzhmpcs (ADVIL PO) Take by mouth PRN 09/02/2024 Discontinued (Therapy completed)Ibuprofen (ADVIL PO) Take by mouth PRN Activemethocarbamol 500 mg oral tablet (2 sources)Muscle RelaxantStart: 08-29-2024 End: 57-41-9117aavz 1 tablet by mouth three times daily as neededmethocarbamol (Robaxin) 500 MG tablet Take 500 mg by mouth 3 (three) times a day as needed 08/29/2024 09/02/2024 Discontinued (Therapy completed)1 ml methylPREDNISolone acetate 40 mg/ml injection (4 sources)CorticosteroidStart: 04-09-2024 End: 40-68-8431ghzodqWILORBWtuxpy acetate (DEPO-Medrol) injection 40 mgStart: 04-09-2024 End: 90-30-722353 mg, Intra-articular, Once PRN Procedure, Starting on Mon04/09/24 at 1239, For 1 doseoxyCODONE hydrochloride 5 mg oral tablet (2 sources)Opioid AgonistStart: 08-21-2024 End: 73-62-1913sgjo 1 tablet by mouth every six hours as neededoxyCODONE (Roxicodone) 5 MG immediate release tablet Take 5 mg by mouth every 6 (six) hours if needed 08/21/2024 09/02/2024 Discontinued (Therapy completed) Problems Active Problems Problem ClassificationProblemDateDocumented DateEpisodic/ChronicAbdominal hernia (5 sources)Bilateral inguinal hernia, without obstruction or gangrene, not specified as recurrent; Translations: [BRITNI ING CAROLYN NO OBST/GANG NOT RECUR] Onset: 94-30-2029WrwmizpbNbadyicqdcbfig/social admission (2 sources)Patient encounter status; Translations: [Other specified counseling] 36-10-0699VrtdawdeUeslzl (2 sources)Unspecified asthma, uncomplicated; Translations: [Unspecified asthma, uncomplicated]Onset: 38-02-8823IdtttkvNcauapd dysrhythmias (16 sources)Atrial fibrillation; Translations: [Unspecified atrial fibrillation] Onset: 805517-50-7358KzofmrfAqvppfxisy heart failure; nonhypertensive (6 sources)Acute diastolic heart failure; Translations: [Acute diastolic (congestive) heart failure]Onset: 121758-37-0115NiqpsrzXtrffhzn atherosclerosis and other heart disease (4 sources)Atherosclerotic heart disease of [place] coronary artery with other forms of angina pectoris; Translations: [Atherosclerotic heart disease of [place] coronary artery without angina pectoris]Onset: 16-03-5208FimmjllTsomzghmpu and other anemia (2 sources)Anemia due to blood loss; Translations: [Iron deficiency anemia secondary to blood loss (chronic)]16-77-0522CnqnfhaOxdetwijf of lipid metabolism (20 sources)Hyperlipidemia, unspecified; Translations: [Hypercholesterolemia] Onset: 01-18-2018 Resolved: 660778-12-6940ZzrgjzxZiwsylgbxa disorders (20 sources)Gastroesophageal reflux disease without esophagitis; Translations: [Gastro-esophageal reflux disease without esophagitis]Onset: 03-19-2017 62-65-9295LiqruoxKvzkx disorders and dislocations; trauma-related (4 sources)Derangement of right knee; Translations: [Unspecified internal derangement of right knee]12-27-7364CxyjdfxWkbexdpwwcvkvs (20 sources)Unspecified osteoarthritis, unspecified site; Translations: [Primary osteoarthritis, unspecified site]Onset: 03-13-2017 Resolved: 179907-14-7596RfaswapGaznt and unspecified benign neoplasm (1 source)Benign lipomatous neoplasm of spermatic cord; Translations: [SHARYN LIPOMATOUS NEOP SPERMATIC CORD]Onset: 89-16-5397JzjbkmppEyltx circulatory disease (4 sources)H/O: atrial fibrillation; Translations: [Personal history of other diseases of the circulatory system]Onset: 900412-69-0680YfrcakpaPqdkp liver diseases (2 sources)Elevated liver enzymes level; Translations: [Abnormal levels of other serum enzymes]39-67-8067YytppsypUmasf lower respiratory disease (3 sources)Dyspnea; Translations: [Shortness of breath]Onset: 03-20-2025 26-89-2710GuwuthnwTbpze nervous system disorders (20 sources)Chronic pain syndrome; Translations: [Chronic pain syndrome]Onset: 09-14-2023 Resolved: 236968-03-2664YownehuMfwuq nervous system disorders (2 sources)Benign fasciculation-cramp syndrome; Translations: [Fasciculation] 30-85-9930NealdkdiBehah non-traumatic joint disorders (6 sources)Pain in right knee; Translations: [Pain in joint, lower leg] 02-74-1339WjbtdngvKuhvhkeb codes; unclassified (4 sources)Bilateral lower limb edema; Translations: [Localized edema]07-16-2024 EpisodicResidual codes; unclassified (14 sources)History of maze procedure for atrial fibrillation; Translations: [Other specified postprocedural states]Onset: 479712-43-7665Veoludis Residual codes; unclassified (14 sources)H/O cardiac surgery; Translations: [Other specified postprocedural states]Onset: 994629-84-1621SgrwfbofTpraurwim-slgdinc disorders (1 source)Nicotine dependence, other tobacco product, uncomplicated; Translations: [NICOTINE DEPEND OTH TOB PROD UNCOMP]Onset: 23-61-3439Kakeuzc Unclassified (2 sources)Pure hypercholesterolemia, unspecified / E78.00(ICD-9)Onset: 55-96-1591Zrayjpcvwynt (1 source)Encounter for screening for cardiovascular disorders / Z13.6(ICD-9) Onset: 07-17-2017 Past or Other Problems Problem ClassificationProblemDateDocumented DateEpisodic/ChronicCoronary atherosclerosis and other heart disease (2 sources)Presence of aortocoronary bypass graft; Translations: [Presence of aortocoronary bypass graft]Onset: 73-66-1667PhfxytwmNvdwixyexn and other anemia (2 sources)Anemia, unspecified; Translations: [Anemia, unspecified]Onset: 91-73-4722GlfbsatoQolbw aftercare (2 sources)Encounter for follow-up examination after completed treatment for conditions other than malignant neoplasm; Translations: [Encounter for follow-up examination after completed treatment for conditionsother than malignant neoplasm]Onset: 65-08-7286FiyexxrgWuvtj circulatory disease (2 sources)Other hypotension; Translations: [Other hypotension]Onset: 09-11-2024 EpisodicOther connective tissue disease (2 sources)Other specified soft tissue disorders; Translations: [Other specified soft tissue disorders]Onset: 52-54-5798JmfopzfjYgmvo connective tissue disease (2 sources)Myalgia, unspecified site; Translations: [Myalgia, unspecified site] Onset: 53-48-2710AeszfiwuEulsu lower respiratory disease (1 source)Shortness of breath; Translations: [Shortness of breath]Onset: 69-43-2418DjhyvchlTptds lower respiratory disease (2 sources)Other forms of dyspnea; Translations: [Other forms of dyspnea]Onset: 30-01-0727LrcoljydXqegz lower respiratory disease (2 sources)Dyspnea, unspecified; Translations: [Dyspnea, unspecified]Onset: 70-03-4269LmcculkbIhzhv nutritional; endocrine; and metabolic disorders (20 sources)Obesity; Translations: [Obesity, unspecified]Onset: 09-14-2023 Resolved: 583473-91-0505CxrwiuqPprxd screening for suspected conditions (not mental disorders or infectious disease) (20 sources)Coronary artery finding; Translations: [Abnormal findings on diagnostic imaging of heart and coronary circulation]Onset: 07-20-2017 Resolved: 294205-25-7330IuzehrqmOkdgirzw codes; unclassified (2 sources)Other specified postprocedural states; Translations: [Other specified postprocedural states]Onset: 36-73-6860OxhhjqdmPobbaxny codes; unclassified (2 sources)Pain, unspecified; Translations: [Pain, unspecified]Onset: 08-14-2024 EpisodicSpondylosis; intervertebral disc disorders; other back problems (20 sources)Cervical spondylosis without myelopathy; Translations: [Spondylosis without myelopathy or radiculopathy, cervical region]Onset: 09-14-2023 Resolved: 865445-11-6291QawhygoPjsmcwhtptc; intervertebral disc disorders; other back problems (20 sources)Chronic neck pain; Translations: [Cervicalgia]Onset: 03-19-2017 Resolved: 684781-57-8748RjkwyzutTmwxzgbkjxlm (1 source)Pure hypercholesterolemia, unspecified; Translations: [Pure hypercholesterolemia, unspecified]Onset: 07-17-2017 Results Test NameValueInterpretationReference RangeFacilityConsulton 25-30-0904Bbgwfkb [facility]36on 08-99-574002Ninctqb called the office again. Left a message. I tried calling back. No answer, left a message. I tried alternate contact who was with the patient and put the patient on the phone. I scheduled him for a new patient consult with Dr. Finn.[facility]36Patient called the office and left a message. States he's going to keep calling until someone answers the phone. I returned his call. Call went to voicemail and I left a message.[facility]36on [facility] CenterXR CHEST 2Von 31-88[place], [place] [address] XRay Report Signed Patient: EMMA JAMES MR#: [id number] : 1950 Acct:[id number] Age/Sex: 74 / M ADM Date: 01/15/25 Loc: RAD Attending Dr: Laina Mcqueen M.D. Ordering Physician: Laina Mcqueen M.D. Date of Service: 01/15/25 Procedure(s): XR chest 2V Accession Number(s): [id number] cc: Liana Mcqueen M.D.; DENNIS IRIZARRY [place] [id number] Patient Name: EMMA JAMES MRN: [facility]:[id number] date: 1950 Sex: M Assigned Patient Location: [facility] Current Patient Location: [facility] Accession/Order Number: [id number] Exam Date: 01/15/2025 11:25 Report Date: 01/15/2025 [...] Khoury M.D. 01/15/2025 12:11 PM Dictation Location: [place] [address] Electronically authenticated by: [id number] Y Date: 01/15/2025 12:11 Dictated By: Beti Khoury M.D. Signed By: 01/15/25 1214 DD/ 1211 TD/TT: Engine Emission Technician:ELIUadiology, Radiologist, - 01/15/2025 [place] [address] XRay Report Signed Patient: EMMA JAMES MR#: [id number] : 1950 Acct:[id number] Age/Sex: 74 / M ADM Date: 01/15/25 Loc: RAD Attending Dr: Laina Mcqueen M.D. Ordering Physician: Laina Mcqueen M.D. Date of Service: 01/15/25 Procedure(s): XR chest 2V Accession Number(s): [id number] cc: Laina Mcqueen M.D.; DENNIS IRIZARRY [place] [address] Patient Name: EMMA JAMES MRN: [facility]:[id number] date: 1950 Sex: M Assigned Patient Location: RAD Current Patient Location: RAD Accession/Order Number: [id number] Exam Date: 01/15/2025 11:25 Report Date: 01/15/2025 [...] Khoury M.D. 01/15/2025 12:11 PM Dictation Location: [place] [address] Electronically authenticated by: [id number] Y Date: 01/15/2025 12:11 Dictated By: Beti Khoury M.D. Signed By: 01/15/25 1214 DD/ 1211 TD/TT: Engine Emission Technician: AB HealthcareRadiology Study observation (narrative)[facility] HealthcareXR CHEST 2V Ordered By: Radiologist Radiology on 67-88-3438JBQV Healthcare Work Phone: Orders Onlyon 89-46-9978Kejblg OnlyNormalUniversity University Hospitals Portage Medical CenterITPon 23-03-0310BtgMorenci, [place] [address] Cardiac Rehab Report Signed Patient: EMMA JAMES MR#: [id number] : 1950 Acct:[id number] Age/Sex: 74 / M ADM Date: 12/13/24 Loc: CR Attending Dr: ARMIDA GUTIERREZ Ordering Physician: Laina Mcqueen M.D. Date of Service: 12/25/24 Procedure(s): ITP Accession Number(s): [id number] cc: [facility] Test Date: 2024-12-25 Pat Name: EMMA JAMES Department: Room: - Gender: Male Test Engineer: : 1950 Requested By: LAINA MCQUEEN Order Number: [id number] Rob MD: ARMIDA GUTIERREZ M.D. Interpretive Statements Patient may continue cardiac rehab as outlined in the treatment plan. Electronically Signed On 12-27-2024 10:27:23 EDT by ARMIDA GUTIERREZ M.D. Dictated By: ARMIDA GUTIERREZ Signed By: 12/27/24102612/27/247 DD/ 0709 TD/TT: Engine Emission Technician:ELIUadiologmaty, Radiologist, - 12/27/2024 [place] [address] Cardiac Rehab Report Signed Patient: EMMA JAMES MR#: [id number] : 1950 Acct:[id number] Age/Sex: 74 / M ADM Date: 12/13/24 Loc: CR Attending Dr: ARMIDA GUTIERREZ Ordering Physician: Laina Mcqueen M.D. Date of Service: 12/25/24 Procedure(s): ITP Accession Number(s): [id number] cc: [facility] Test Date: 2024-12-25 Pat Name: EMMA JAMES Department: Room: - Gender: Male Test Engineer: : 1950 Requested By: LAINA MCQUEEN Order Number: [id number] Rob MD: ARMIDA GUTIERREZ M.D. Interpretive Statements Patient may continue cardiac rehab as outlined in the treatment plan. Electronically Signed On 12-27-2024 10:27:23 EDT by ARMIDA GUTIERREZ M.D. Dictated By: ARMIDA GUTIERREZ Signed By: 12/27/247 12/27/24 1027 DD/ 0709 TD/TT: Engine Emission Technician: [place] [address] Cardiac Rehab Report Signed Patient: EMMA JAMES MR#: [id number] : 1950 Acct:[id number] Age/Sex: 74 / M ADM Date: 12/13/24 Loc: CR Attending Dr: AMRIDA GUTIERREZ Ordering Physician: Laina Mcqueen M.D. Date of Service: 12/11/24 Procedure(s): ITP Accession Number(s): [id number] cc: [facility] Test Date: 2024-12-11 Pat Name: EMMA JAMES Department: Room: - Gender: Male Test Engineer: : 1950 Requested By: LAINA MCQUEEN Order Number: [id number] Rob MD: ARMIDA GUTIERREZ M.D. Interpretive Statements Patient may continue cardiac rehab as outlined in the treatment plan. Electronically Signed On 12-27-2024 10:19:41 EDT by ARMIDA GUTIERREZ M.D. Dictated By: ARMIDA GUTIERREZ Signed By: 12/27/24 1019 12/27/24 1019 DD/ 1122 TD/TT: Engine Emission Technician:TBHRadiology, Radiologist, - 12/27/2024 [place] [address] Cardiac Rehab Report Signed Patient: EMMA JAMES MR#: [id number] : 1950 Acct:[id number] Age/Sex: 74 / M ADM Date: 12/13/24 Loc: CR Attending Dr: ARMIDA GUTIERREZ Ordering Physician: Laina Mcqueen M.D. Date of Service: 12/11/24 Procedure(s): ITP Accession Number(s): [id number] cc: [facility] Test Date: 2024-12-11 Pat Name: EMMA JAMES Department: Room: - Gender: Male Test Engineer: : 1950 Requested By: LAINA MCQUEEN Order Number: [id number] Rob MD: ARMIDA GUTIERREZ M.D. Interpretive Statements Patient may continue cardiac rehab as outlined in the treatment plan. Electronically Signed On 12-27-2024 10:19:41 EDT by ARMIDA GUTIERREZ M.D. Dictated By: ARMIDA GUTIERREZ Signed By: 12/27/24 1019 12/27/24 1019 DD/ 1122 TD/TT: Engine Emission Technician: AB MontanoITPOrdered By: Radiologist Radiology on 07-98-5684NSNG Healthcare Work Phone: [facility] Work Phone: ITPon 72-39-6276Acoweloiq Study observation (narrative)AB Montano36on 24-41-878305Vqlw called back again and I gave her result of echo per Dr. Mcqueen. I then forwarded her to [facility] scheduling to get PFT's set up.[facility] CenterITPon 02-16-5565Bksxgtvhe Study observation (narrative)AB MontanoOrders Onlyon 02-05-4604Oofbic OnlyNormalUniGreene Memorial HospitalCA ECHO DOPPLER COMPLETEon 03-88-9709BfkMorenci, [place] [address] Cardiology Report Signed Patient: EMMA JAMES MR#: [id number] : 1950 Acct:[id number] Age/Sex: 74 / M ADM Date: 12/06/24 Loc: CARD Attending Dr: Laina Mcqueen M.D. Ordering Physician: Laina Mcqueen M.D. Date of Service: 12/06/24 Procedure(s): CA echo doppler complete Accession Number(s): [id number] cc: Laina Mcqueen M.D.; DENNIS IRIZARRY Patient Name: EMMA JAMES MR#: [id number] : 1950 Exam Date: 12/06/2024 Ordering Doctor: [...] Area (VTI): 2.99 cm2, 2.99 cm2 Deceleration Gem: Pressure Half-Time: Peak Velocity(Antegrade Flow): 1.33 m/s [...] not included)...TBHRadiology, Radiologist, MD - 12/07/2024 [place] [address] Cardiology Report Signed Patient: EMMA JAMES MR#: [id number] : 1950 Acct:[id number] Age/Sex: 74 / M ADM Date: 12/06/24 Loc: CARD Attending Dr: Laina Mcqueen M.D. Ordering Physician: Laina Mcqueen M.D. Date of Service: 12/06/24 Procedure(s): CA echo doppler complete Accession Number(s): [id number] cc: Laina Mcqueen M.D.; DENNIS IRIZARRY Patient Name: EMMA JAMES MR#: [id number] : 1950 Exam Date: 12/06/2024 Ordering Doctor: [...] Area (VTI): 2.99 cm2, 2.99 cm2 Deceleration Gem: Pressure Half-Time: Peak Velocity(Antegrade Flow): 1.33 m/s [...] M.D. Signed By: 12/07/241824 DD/ 22 TD/TT: Engine Emission Technician: [facility] CenterRadiology Study observation (narrative)[facility] ECHO DOPPLER COMPLETEOrdered By: Radiologist Radiology on 98-76-7223GBOTSaint John's Regional Health Center Work Phone: all CBC WITH AUTO DIFFon 76-69-3978ZZLWKHORA ABSOLUTE AUTO0.1NOMS HealthcareBasophils/100 WBC (Bld)0.9 %0.2 - 2.0 %[facility] Eosinophils/100 WBC (Bld)3.5 %0.9 - 7.0 %[facility] CenterErythrocyte distribution width (RBC) [Ratio]15.1 %High11.0 - 15.0 %[facility] CenterHematocrit (Bld) [Volume fraction]40.3 %Low42.0 - 54.0 %[facility] CenterHemoglobin (Bld) [Mass/Vol]12.4 g/dLLow14.0 - 18.0 g/dLSaint John's Regional Health CenterIMMATURE GRANULOCYTES ABS AUTO0.03NOEllis Fischel Cancer CenterImmature granulocytes/100 WBC (Bld)0.6 %High0.0 - 0.5 % [facility] CenterInterpretation and review of laboratory resultsAbnormalNOMS HealthcareLYMPHOCYTES ABSOLUTE AUTO0.9LowNOMS HealthcareLymphocytes/100 WBC (Bld)17.3 %Low20.5 - 60.0 %NOMS HealthcareMCH (RBC) [Entitic mass]24.2 pgLow25.9 - 34.0 pgNOMS HealthcareHC (RBC) [Mass/Vol]30.8 g/dL29.9 - 35.2 g/dLNOMS HealthcareMCV (RBC) [Entitic vol]78.7 fLLow80.0 - 94.0 fLNORI Healthcare MONOCYTES ABSOLUTE AUTO0.4NOMS HealthcareMonocytes/100 WBC (Bld)7.9 %1.7 - 12.0 %NOMS HealthcareNEUTROPHILS ABSOLUTE AUTO3.8NOMS HealthcareNeutrophils/100 WBC (Bld)69.8 %43.0 - 75.0 %[facility] HealthcarePlatelet mean volume (Bld) [Entitic vol] 10.1 fL9.5 - 13.5 fLNORI HealthcareTBH EO #0.2NOMS HealthcareTBH [id number] HealthcareTBH RBC5.12NOMS HealthcareTBH WBC5.4NOMS HealthcareCLINISYNCNOMS HealthcareITPon 55-41-4632No[place]More[place], [place] [address] Cardiac Rehab Report Signed Patient: EMMA JAMES MR#: [id number] : 1950 Acct:[id number] Age/Sex: 74 / M ADM Date: 11/14/24 Loc: CR Attending Dr: ARMIDA GUTIERREZ Ordering Physician: Steve Albright D.O. Date of Service: 11/14/24 Procedure(s): ITP Accession Number(s): [id number] cc: [facility] Test Date: 2024-11-14 Pat Name: EMMA JAMES Department: Room: - Gender: Male Test Engineer: : 1950 Requested By: Steve Albright Order Number: [id number] Reading MD: Steve Albright Interpretive Statements Though [...] Albright D.O. Signed By: 11/14/24153311/14/241533 DD/ TD/TT: Engine Emission Technician:ELIUadiologStefany rutledge, - 11/14/2024 [place] [address] Cardiac Rehab Report Signed Patient: EMMA JAMES MR#: [id number] : 1950 Acct:[id number] Age/Sex: 74 / M ADM Date: 11/14/24 Loc: CR Attending Dr: ARMIDA GUTIERREZ Ordering Physician: Steve Albright D.O. Date of Service: 11/14/24 Procedure(s): ITP Accession Number(s): [id number] cc: [facility] Test Date: 2024-11-14 Pat Name: EMMA JAMES Department: Room: - Gender: Male Test Engineer: : 1950 Requested By: Steve Albright Order Number: [id number] Reading MD: Steve Albright Interpretive Statements Though [...] D.O. Signed By: 11/14/24153311/14/241533 DD/ 0856 TD/TT: Engine Emission Technician: AB HealthcareRadiology Study observation (narrative)AB HealthcareITPOrdered By: Radiologist Radiology on 01-34-0001CVVO Healthcare Work Phone: [phone] 08-66-872911ZtkczjGshnrzkzesGreene Memorial HospitalITPon 47-13-7652DbvMorenci, [place] [address] Cardiac Rehab Report Signed Patient: EMMA JAMES MR#: [id number] : 1950 Acct:[id number] Age/Sex: 73 / M ADM Date: 10/16/24 Loc: CR Attending Dr: ARMIDA GUTIERREZ Ordering Physician: Steve Albright D.O. Date of Service: 10/16/24 Procedure(s): ITP Accession Number(s): [id number] cc: [facility] Test Date: 2024-10-16 Pat Name: EMMA JAMES Department: Room: - Gender: Male Test Engineer: : 1950 Requested By: Steve Albright Order Number: [id number] Rob MD: Steve Albright Interpretive Statements Okay to continue with outlined treatment plan. Electronically Signed On 10-16-2024 9:16:57 EDT by Steve Albright Dictated By: Steve Albright D.O. Signed By: 10/16/2417 10/16/24 09 DD/ 0715 TD/TT: Engine Emission Technician:TBHRadiology, Radiologist, MD - 10/16/2024 [place] [address] Cardiac Rehab Report Signed Patient: EMMA JAMES MR#: [id number] : 1950 Acct:[id number] Age/Sex: 73 / M ADM Date: 10/16/24 Loc: CR Attending Dr: ARMIDA GUTIERREZ Ordering Physician: Steve Albright D.O. Date of Service: 10/16/24 Procedure(s): ITP Accession Number(s): [id number] cc: [facility] Test Date: 2024-10-16 Pat Name: EMMA JAMES Department: Room: - Gender: Male Test Engineer: : 1950 Requested By: Steve Albright Order Number: [id number] Rob LYNNE: Steve Albright Interpretive Statements Okay to continue with outlined treatment plan. Electronically Signed On 10-16-2024 9:16:57 EDT by Steve Albright Dictated By: Steve Albright D.O. Signed By: 10/16/24 0917 10/16/24 0917 DD/ 0715 TD/TT: Engine Emission Technician: AB MontanoRadiology Study observation (narrative)AB HealthcareITPOrdered By: Radiologist Radiology on 23-44-3198CJWH [employer] Work Phone: [phone] [phone]th TriPoint Medical CenterITPon 34-60-6377CtvMorenci, [place] [address] Cardiac Rehab Report Signed Patient: EMMA JAMES MR#: [id number] : 1950 Acct:[id number] Age/Sex: 73 / M ADM Date: 09/20/24 Loc: CR Attending Dr: ARMIDA GUTIERREZ Ordering Physician: Steve Albright D.O. Date of Service: 09/20/24 Procedure(s): ITP Accession Number(s): [id number] cc: [facility] Test Date: 2024-09-20 Pat Name: EMMA JAMES Department: Room: - Gender: Male Test Engineer: : 1950 Requested By: Steve Albright Order Number: [id number] Reading MD: Steve Albright Interpretive Statements Okay to proceed with outlined treatment plan. Electronically Signed On 09-23-2024 13:37:01 EDT by Steve Albright Dictated By: Steve Albright D.O. Signed By: 09/23/24 1337 09/23/24 1337 DD/ 1309 TD/TT: Engine Emission Technician:Stefany Chaudhari MD - 09/23/2024 [place] [address] Cardiac Rehab Report Signed Patient: EMMA JAMES MR#: [id number] : 1950 Acct:[id number] Age/Sex: 73 / M ADM Date: 09/20/24 Loc: CR Attending Dr: ARMIDA GUTIERREZ Ordering Physician: Steve Albright D.O. Date of Service: 09/20/24 Procedure(s): ITP Accession Number(s): [id number] cc: [facility] Test Date: 2024-09-20 Pat Name: EMMA JAMES Department: Room: - Gender: Male Test Engineer: : 1950 Requested By: Steve Albright Order Number: [id number] Reading MD: Steve Albright Interpretive Statements Okay to proceed with outlined treatment plan. Electronically Signed On 09-23-2024 13:37:01 EDT by Steve Albright Dictated By: Steve Albright D.O. Signed By: 09/23/24133609/23/241336 DD/ 1309 TD/TT: Engine Emission Technician: [place] [address] Cardiac Rehab Report Signed Patient: EMMA JAMES MR#: [id number] : 1950 Acct:[id number] Age/Sex: 73 / M ADM Date: 09/20/24 Loc: CR Attending Dr: ARMIDA GUTIERREZ Ordering Physician: Steve Albright D.O. Date of Service: 09/18/24 Procedure(s): ITP Accession Number(s): [id number] cc: [facility] Test Date: 2024-09-18 Pat Name: EMMA JAMES Department: Room: - Gender: Male Test Engineer: : 1950 Requested By: Steve Albright Order Number: [id number] Reading MD: Steve Albright Interpretive Statements Okay to proceed with outlined treatment plan. Electronically Signed On 09-23-2024 13:37:19 EDT by Steve Albright Dictated By: Steve Albright D.O. Signed By: 09/23/24133609/23/241336 DD/ 1307 TD/TT: Engine Emission Technician:ELIUadiologmaty RadiologistMD - 09/23/2024 [place] [address] Cardiac Rehab Report Signed Patient: EMMA JAMES MR#: [id number] : 1950 Acct:[id number] Age/Sex: 73 / M ADM Date: 09/20/24 Loc: CR Attending Dr: ARMIDA GUTIERREZ Ordering Physician: Steve Albright D.O. Date of Service: 09/18/24 Procedure(s): ITP Accession Number(s): [id number] cc: [facility] Test Date: 2024-09-18 Pat Name: EMMA JAMES Department: Room: - Gender: Male Test Engineer: : 1950 Requested By: Steve Albright Order Number: [id number] Reading MD: Steve Albright Interpretive Statements Okay to proceed with outlined treatment plan. Electronically Signed On 09-23-2024 13:37:19 EDT by Steve Albright Dictated By: Steve Albright D.O. Signed By: 09/23/24 1337 09/23/24 1337 DD/ 1307 TD/TT: Engine Emission Technician: AB Nugent Panel InformationOrdered By: Radiologist Radiology on 02-66-0560JKJL [facility] Work Phone: ITPon [phone] Study observation (narrative)[facility]OM[facility] HealthcareITPon 24-09-4646Nleiddxkc Study observation (narrative)NOMS HealthcareALL CBC WITH AUTO DIFFon 70-54-9807MOKAJPARD ABSOLUTE WTLB5FLAQ HealthcareBasophils/100 WBC (Bld)0.7 %0.2 - 2.0 %[facility] Eosinophils/100 WBC (Bld)3.7 %0.9 - 7.0 %NOMS HealthcareErythrocyte distribution width (RBC) [Ratio]13.1 %11.0 - 15.0 %[facility]OMS HealthcareHematocrit (Bld) [Volume fraction]35.7 %Low42.0 - 54.0 %[facility]OMS HealthcareHemoglobin (Bld) [Mass/Vol]11.2 g/dLLow14.0 - 18.0 g/dLNORI HealthcareIMMATURE GRANULOCYTES ABS AUTO0.02NORI HealthcareImmature granulocytes/100 WBC (Bld)0.4 %0.0 - 0.5 %[facility] Interpretation and review of laboratory resultsAbnormalNOEllis Fischel Cancer Center LYMPHOCYTES ABSOLUTE JLNZ8SgeCYIK [facility] HospitalLymphocytes/100 WBC (Bld)18 %Low20.5 - 60.0 %[facility] SystemH (RBC) [Entitic mass]28.9 pg25.9 - 34.0 pgNOPhelps HealthHC (RBC) [Mass/Vol]31.4 g/dL29.9 - 35.2 g/dLLake Regional Health SystemV (RBC) [Entitic vol]92.2 fL80.0 - 94.0 fLSaint John's Regional Health CenterMONOCYTES ABSOLUTE AUTO0.5NOMS HealthcareMonocytes/100 WBC (Bld)9.3 %1.7 - 12.0 %[facility] CenterNEUTROPHILS ABSOLUTE AUTO3.9NOMS [facility] HospitalNeutrophils/100 WBC (Bld)67.9 %43.0 - 75.0 %[facility] Health CenterPlatelet mean volume (Bld) [Entitic vol]9.9 fL9.5 - 13.5 fLNOEllis Fischel Cancer CenterTBH EO #0.2NOMS HealthcareTB OBB044UWEG [facility] HospitalTB RBC3.87LowNOMS [facility] HospitalTB WBC5.7NORI HealthcareCLINISYNCNOMS HealthcareTelemedicineon 18-89-3151KlqizjhtxtudCreydbDguubgjqgd [facility] CenterB[facility] center metabolic 1998 panelon 16-60-4545Ypsrdhf [Mass/Vol]9.7 mg/dL8.6 - 10.2 mg/dLNORI HealthcareChloride [Moles/Vol]100 mmol/L96 - 106 mmol/LNOMS HealthcareCO2 [Moles/Vol]29 mmol/L20 - 29 mmol/LNOMS HealthcareCreatinine [Mass/Vol]1.01 mg/dL 0.76 - 1.27 mg/dLNORI HealthcareGFR/1.73 sq M.predicted among non-blacks MDRD (S/P/Bld) [Vol rate/Area]78 mL/min/{1.73_m2}59 - PINF mL/min/1.73[facility] Glucose [Mass/Vol]98 mg/dL70 - 99 mg/dLNOMS HealthcarePotassium [Moles/Vol]5 mmol/L3.5 - 5.2 mmol/LNOMS HealthcareSodium [Moles/Vol]141 mmol/L134 - 144 mmol/LNOMS HealthcareUrea nitrogen [Mass/Vol]19 mg/dL8 - 27 mg/dLNORI Healthcare Urea nitrogen/Creatinine [Mass ratio]19 mg/mg10 - 24NORI HealthcarePerformed at: - [facility] [address], [address], [place], [place] [address] Manager Corporate Strategy: Johana Ireland MD, Phone: [phone] Nmrrxrkwio19nr 09-64-910815HlssejXyvvmqwtukBerger Hospital WITH AUTO DIFFERENTIAL on 22-90-8254Kngsuxibx (Bld) [#/Vol]0.06 10*3/uLNormal0.00-0.20UnSt. John of God HospitalComment on above:Performed By: #### [id number] ####[facility] (BEAKER)[address] [place], [place] [address]Qasuflmsu/100 WBC (Bld) 0.5 %Normal0.0-1.0UnSt. John of God HospitalComment on above:Performed By: #### [id number] ####[facility] ([facility])[address] [place], [place] [address]Czlvqntykyv (Bld) [#/Vol]0.11 10*3/uLNormal0.00-0.50UnSt. John of God HospitalComment on above:Performed By: #### [id number] ####[facility] ([facility])[address] [place], [place] [address]Irplkkpkygg/100 WBC (Bld)1.0 %Normal 0.0-6.0UnSt. John of God HospitalComment on above:Performed By: #### [id number] ####[facility] (BEAKER)[address] [place] [address] Erythrocyte distribution width (RBC) [Ratio]14.3 %Yvjrhl06.5-15.0UnSt. John of God HospitalComment on above:Performed By: #### [id number] ####[facility] ([facility]ER)[address] [place], [place] [address]WOQMWDOXDNT MEAN CORPUSCULAR HEMOGLOBIN CONCENTRATION (G/DL) BY FPMOTCAAD02.9 g/dLLow32.0-35.0 [facility] HospitalComment on above:Performed By: #### [id number] ####[facility] ([facility])[address] [place], [place] [address]Zpqtsyajiy (Bld) [Volume fraction]33.3 %Low39.0-50.0UnSt. John of God HospitalComment on above:Performed By: #### [id number] ####[facility] ([facility])[address] [place], [place] [address]Skpmxebwuy (Bld) [Mass/Vol]10.3 g/dLLow13.0-17.0UnSt. John of God HospitalComment on above:Performed By: #### [id number] ####[facility] ([facility])[address] [place], [place] [address]Qrkcxynr granulocytes (Bld) [#/Vol]0.19 10*3/uLNormal0.00-0.20UnSt. John of God Hospital Comment on above:Performed By: #### [id number] ####[facility] ([facility])[address] [place], [place] [address]Zpkowsjb granulocytes/100 WBC (Bld)1.7 %High0.0-1.0 [facility] HospitalComment on above:Performed By: #### [id number] ####[facility] ([facility])[address] [place], [place] [address]Shmcefvsqbw (Bld) [#/Vol]0.86 10*3/uLLow1.20-4.00UnSt. John of God HospitalComment on above:Performed By: #### [id number] ####[facility] ([facility])[address] [place], [place] [address]Hdhabjztusy/100 WBC (Bld)7.8 %Low20.0-45.0UnSt. John of God HospitalComment on above:Performed By: #### [id number] ####[facility] ([facility]ER)[address] [place] [address]GMJ (RBC) [Entitic mass] 29.9 faCnvlqp02.0-33.0UnSt. John of God HospitalComment on above: Performed By: #### [id number] ####[facility] ([facility])[address] [place], [place] [address]KKU (RBC) [Entitic vol]96.5 vIFwiacj87.0-98.0UnSt. John of God HospitalComment on above:Performed By: #### [id number] ####[facility] ([facility])[address] [place], [place] [address]Iquwczlxv (Bld) [#/Vol] 0.83 10*3/uLNormal0.10-1.00UnSt. John of God HospitalComment on above: Performed By: #### [id number] ####[facility] ([facility]ER)[address]IFERST[address] MARY REHABILITATION HOSPITALuAdreyCLAYTON, [place] [address]Tljvxqbpb/100 WBC (Bld)7.5 %Normal5.0-12.0UnSt. John of God HospitalComment on above:Performed By: #### [id number] ####[facility] ([facility])[address] MARIFERST[address] MARY REHABILITATION HOSPITALAudreyCLAYTON, [place] [address]Uuyolwrtcyt (Bld) [#/Vol] 9.04 10*3/uLHigh1.60-7.60UnSt. John of God HospitalComment on above: Performed By: #### [id number] ####[facility] ([facility])[address] MARIFERST[address] MARY REHABILITATION HOSPITALAudreyCLAYTON, [place] [address]Gpkavxdkoml/100 WBC (Bld)81.5 %High40.0-72.0UnSt. John of God HospitalComment on above:Performed By: #### [id number] ####[facility] ([facility])[address] [place], [place] [address]TDHV (PER 100 WBCS) BY AUTOMATED COUNT0.0 %Jlflpb5VnlciuilhzSt. John of God HospitalComment on above: Performed By: #### [id number] ####[facility] ([facility])[address] [address]YMWYYNPNH (10*3/UL) IN BLOOD AUTOMATED [id number] 10*3/uLHigh 150-400UnSt. John of God HospitalComment on above:Performed By: #### [id number] ####[facility] ([facility])[address] [place] [address]QDN (Bld) [#/Vol]3.45 10*6/uLLow4.20-5.70UnSt. John of God HospitalComment on above:Performed By: #### [id number] ####[facility] ([facility])[address] [address]BKL (Bld) [#/Vol]11.09 10*3/uLHigh4.00-10.60UnSt. John of God HospitalComment on above:Performed By: #### [id number] ####[facility] ([facility])[address] [place] [address]DVYMVSFQRVJLD METABOLIC PANELon 66-78-4493Pcnevhc [Mass/Vol]4.1 g/dLNormal3.5-5.7UnSt. John of God HospitalComment on above:Performed By: #### [id number] ####[facility] ([facility])[address] [place], [place] [address]YWC [Catalytic activity/Vol]158 U/L Nbli93-185MupdzhxcufSt. John of God HospitalComment on above:Performed By: #### [id number] ####[facility] ([facility])[address] [place], [place] [address]EWZ [Catalytic activity/Vol]57 U/LHigh7-52UnSt. John of God HospitalComment on above:Performed By: #### [id number] ####[facility] ([facility])[address] [place], [place] [address]Umpxq gap [Moles/Vol]9 mmol/LNormal7-20UnSt. John of God HospitalComment on above:Performed By: #### [id number] ####[facility] ([facility])[address] [address]FRV [Catalytic activity/Vol]32 U/L Gmkkta68-36RqgftybyjhSt. John of God HospitalComment on above:Performed By: #### [id number] ####[facility] ([facility])[address] [place] [address] Bilirubin [Mass/Vol]0.8 mg/dLNormal0.3-1.0UnSt. John of God Hospital Comment on above:Performed By: #### [id number] ####[facility] ([facility])[address] [place], [place] [address]Kuklyaf [Mass/Vol]9.2 mg/dLNormal8.6-10.3UnSt. John of God HospitalComment on above:Performed By: #### [id number] ####[facility] ([facility])[address] [place] [address]Bjheumwv [Moles/Vol]99 mmol/OKmdmrz00-515YdeyioobljSt. John of God HospitalComment on above:Performed By: #### [id number] ####[facility] ([facility])[address] [place] [address] CO2 [Moles/Vol]33 mmol/FQojk85-67HiaaynvetvSt. John of God HospitalComment on above:Performed By: #### [id number] ####[facility] ([facility])[address] [place], [place] [address]Cupvzermax [Mass/Vol]1.10 mg/dLNormal0.70-1.30UnSt. John of God HospitalComment on above:Performed By: #### [id number] ####[facility] ([facility])[address] [place], [place] [address]FXSAVAYLJG FILTRATION RATE ML/MIN/1.73 SQ M.JJAZWMOCL82.4 mL/min/1.73m*2Normal>60.0UnSt. John of God HospitalComment on above:Result Comment: [facility]???s estimated glomerular filtration rate (eGFR) will [...] anyone group of individuals.Performed By: #### [id number] ####[facility] ([facility])[address] [place], [place] [address]Ivxvbgd [Mass/Vol]90 mg/fZIujsdi53-183SanstdbrlbSt. John of God HospitalComment on above:Performed By: #### [id number] ####[facility] ([facility])[address] [place], [place] [address]Owuszvmji [Moles/Vol]3.8 mmol/LNormal3.5-5.1UnSt. John of God HospitalComment on above:Performed By: #### [id number] ####[facility] ([facility])[address] [place], [place] [address]Duyzoeh [Mass/Vol]7.4 g/dLNormal 6.0-8.3UnSt. John of God HospitalComment on above:Performed By: #### [id number] ####[facility] ([facility])[address] [place], [place] [address]Czdzhz [Moles/Vol]137 mmol/UCsotge159-977RowyukacefSt. John of God HospitalComment on above:Performed By: #### [id number] ####[facility] ([facility])[address] [place], [place] [address]Kans nitrogen [Mass/Vol]20 mg/dLNormal7-25UnSt. John of God HospitalComment on above:Performed By: #### [id number] ####[facility] ([facility])[address] [place], [place] [address]XTDH NITROGEN/CREATININE (MASS RATIO) IN SER/PLAS18.2NormalUnSt. John of God HospitalComment on above: Performed By: #### [id number] ####[facility] ([facility])[address] [place] [address]Demhc 03-51-4282VdgDikhjvTrmqdlampp of [place] Medical CenterMAGNESIUMon 82-29-8061Ngzbogwlw [Mass/Vol]2.3 mg/dLNormal1.9-2.7UnSt. John of God HospitalComment on above:Performed By: #### [id number] ####[facility] ([facility])[address] [place] [address]fj [phone] with call back number with appointment details 08/29/2024 @ 1:00pm with labs and xray to be completed prior. Patient called back and confirmed details.NormalUnSt. John of God HospitalTelephoneon 58-02-1964BohyvcugdMwhgnnMrctpynpzb [facility]36 on 22-95-570791KmrsklHcqhmqmxkv [facility]36NormalUniversDetwiler Memorial HospitalTelephoneon 87-01-5740QobklriunOawkkxWgvpwglmld of [place] [facility] Xvcuum92ng 43-78-547905BjpswdEsgncecstc of [place] [facility] Klbbvt38Qehapv [facility]30NormalUniversDetwiler Memorial Hospital BASIC METABOLIC PANELon 55-26-6899Dztcz gap [Moles/Vol]9 mmol/LNormal7-20 [facility] HospitalComment on above:Performed By: #### [id number] ####[facility] ([facility])[address] [place], [place] [address]Kwvriqh [Mass/Vol]7.8 mg/dLLow8.6-10.3UnSt. John of God HospitalComment on above:Performed By: #### [id number] ####[facility] ([facility])[address] [place], [place] [address]Dummgnmm [Moles/Vol]101 mmol/FSmhuel95-623RmstbujqhmSt. John of God HospitalComment on above:Performed By: #### [id number] ####[facility] ([facility])[address] [place] [address]KX6 [Moles/Vol]29 mmol/LNormal 21-31UnSt. John of God HospitalComment on above:Performed By: #### [id number] ####[facility] ([facility])[address] [place] [address]Hyrlumgcfn [Mass/Vol]0.66 mg/dLLow0.70-1.30UnSt. John of God HospitalComment on above:Performed By: #### [id number] ####[facility] ([facility])[address] [place] [address]VYENGSVDIU FILTRATION RATE ML/MIN/1.73 SQ M.XNENKOQXK51.4 mL/min/1.73m*2Normal>60.0UnSt. John of God HospitalComment on above: Result Comment: [facility]???s estimated glomerular filtration rate (eGFR) will [...] anyone group of individuals.Performed By: #### [id number] ####[facility] ([facility])[address] [place] [address]Tutnbqs [Mass/Vol]90 mg/sKEqbbcv83-724XuuwodcfpnSt. John of God HospitalComment on above:Performed By: #### [id number] ####[facility] ([facility])[address] [place] [address]Dknsbskdt [Moles/Vol]3.5 mmol/LNormal3.5-5.1UnSt. John of God HospitalComment on above:Performed By: #### [id number] ####[facility] ([facility])[address] [place] [address] Sodium [Moles/Vol]135 mmol/JDuc710-439FitgwvnjovSt. John of God HospitalComment on above:Performed By: #### [id number] ####[facility] ([facility])[address] [place], [place] [address]Xxyr nitrogen [Mass/Vol]20 mg/dLNormal7-25UnSt. John of God HospitalComment on above:Performed By: #### [id number] ####[facility] ([facility])[address] [place], [place] [address]OKJK NITROGEN/CREATININE (MASS RATIO) IN SER/PLAS30.3NormalUniversDetwiler Memorial HospitalComment on above: Performed By: #### [id number] ####[facility] ([facility])[address] [place] [address]GACtc 48-11-8737Olxkegijgdp distribution width (RBC) [Ratio]13.7 % Chkxvj02.5-15.0UnSt. John of God HospitalComment on above:Performed By: #### [id number] ####[facility] ([facility])[address] [place] [address] ERYTHROCYTE MEAN CORPUSCULAR HEMOGLOBIN CONCENTRATION (G/DL) BY RYTPULFZB88.8 g/sFVgcvml04.0-35.0UnSt. John of God HospitalComment on above:Performed By: #### [id number] ####[facility] ([facility])[address] [place], [place] [address]Okkfpqiwgv (Bld) [Volume fraction]24.7 %Low39.0-50.0UnSt. John of God HospitalComment on above:Performed By: #### [id number] ####[facility] ([facility])[address] [place], [place] [address]Qdmwbbjcbs (Bld) [Mass/Vol]8.1 g/dLLow 13.0-17.0UnSt. John of God HospitalComment on above:Performed By: #### [id number] ####[facility] ([facility])[address] [place], [place] [address]FWX (RBC) [Entitic mass]30.2 sxDkarco66.0-33.0UnSt. John of God HospitalComment on above:Performed By: #### [id number] ####[facility] ([facility])[address] [place] [address]LYZ (RBC) [Entitic vol]92.2 hDZgwynz28.0-98.0UnSt. John of God HospitalComment on above:Performed By: #### [id number] ####[facility] ([facility])[address] [place] [address]KPPSMLCJB (10*3/UL) IN BLOOD AUTOMATED [id number] 10*3/cRKxeihm882-931VbrnqmvmnkSt. John of God Hospital Comment on above:Performed By: #### [id number] ####[facility] ([facility])[address] [place] [address]GAZ (Bld) [#/Vol]2.68 10*6/uLLow4.20-5.70UnSt. John of God HospitalComment on above:Performed By: #### [id number] ####[facility] ([facility])[address] [place] [address]VVD (Bld) [#/Vol]8.53 10*3/uLNormal4.00-10.60UnSt. John of God HospitalComment on above: Performed By: #### [id number] ####[facility] ([facility])[address] [place] [address]VQmy 60-00-8924TCCzzpihDphjgqhzpx of [facility] Letter (Out)on 52-65-0176Mjmlfe (Out)NormalUnSt. John of God Hospital MAGNESIUMon 30-47-8135Ayowqnkhl [Mass/Vol]1.9 mg/dLNormal1.9-2.7UnSt. John of God HospitalComment on above:Performed By: #### [id number] ####[facility] ([facility])[address] [place] [address]WBLYPBVRsu 08-21-2024 NURSNOTENormalUniversity University Hospitals Portage Medical CenterNURSNOTENormalUniversity University Hospitals Port[facility] Medical CenterPOCT GLUCOSE METER UNSOLICITED RESULTSon 94-73-0108Xirrgkh [Mass/Vol]110 mg/pAWabv64-183MvtlpopqrdSt. John of God HospitalComment on above:Order Comment: Waived Testing in the ED is performed under the ED CLIA certificate #[id number].Result Comment: [id number] By: #### [id number] ####[facility] ([facility])[address] [place], [place] [address]Sauhmgg [Mass/Vol]97 mg/cDTghtzk51-276JxfjdvhcgjSt. John of God HospitalComment on above:Order Comment: Waived Testing in the ED is performed under the ED CLIA certificate #[id number].Result Comment: [id number] By: #### [id number] ####[facility] ([facility])[address] [place], [place] [address]BLTYF METABOLIC PANELon 72-17-0973Amalh gap [Moles/Vol]8 mmol/LNormal7-20UnSt. John of God HospitalComment on above:Performed By: #### [id number] ####[facility] ([facility])[address], [place] [address]Bewfokj [Mass/Vol]7.9 mg/dLLow8.6-10.3 [facility] HospitalComment on above:Performed By: #### [id number] ####[facility] ([facility])[address], [place] [address]Vjnezvkp [Moles/Vol]99 mmol/BGvtpip50-418IslnspyrlbSt. John of God HospitalComment on above:Performed By: #### [id number] ####[facility] ([facility])[address], [place] [address]XT2 [Moles/Vol]32 mmol/NJytt42-03OrtwkbhcobSt. John of God HospitalComment on above:Performed By: #### [id number] ####[facility] ([facility])[address], [place] [address]Ouupbqlroo [Mass/Vol]0.75 mg/dLNormal 0.70-1.30UnSt. John of God HospitalComment on above:Performed By: #### [id number] ####[facility] ([facility])[address] [place] [address]TFOXQUNPRG FILTRATION RATE ML/MIN/1.73 SQ M.YOCXECPRE89.7 mL/min/1.73m*2Normal>60.0 [facility] HospitalComment on above:Result Comment: [facility]???s estimated glomerular filtration rate (eG FR) will [...] group of individuals. Performed By: #### [id number] ####[facility] ([facility])[address] [place] [address]Ymbiikp [Mass/Vol]108 mg/jMNogs27-227PmouixefizSt. John of God HospitalComment on above:Performed By: #### [id number] ####[facility] ([facility])[address] [place] [address]Aqqqjpnad [Moles/Vol]3.7 mmol/LNormal 3.5-5.1UnSt. John of God HospitalComment on above:Performed By: #### [id number] ####[facility] ([facility])[address] [place] [address]Dpmlek [Moles/Vol]135 mmol/QEct100-093HbztgizbsaSt. John of God HospitalComment on above:Performed By: #### [id number] ####[facility] ([facility])[address] [place], [place] [address]Mqpa nitrogen [Mass/Vol]26 mg/dLHigh7-25UnSt. John of God HospitalComment on above:Performed By: #### [id number] ####[facility] ([facility])[address] [place], [place] [address]CBFF NITROGEN/CREATININE (MASS RATIO) IN SER/PLAS34.7NormalUniversDetwiler Memorial HospitalComment on above: Performed By: #### [id number] ####[facility] ([facility])[address] [place] [address]BLDgi 59-42-6015Plwrtookaah distribution width (RBC) [Ratio]13.5 % Areioe46.5-15.0UnSt. John of God HospitalComment on above:Performed By: #### [id number] ####[facility] ([facility])[address] [place] [address] ERYTHROCYTE MEAN CORPUSCULAR HEMOGLOBIN CONCENTRATION (G/DL) BY ALFJQUHOO83.3 g/yUCededa37.0-35.0UnSt. John of God HospitalComment on above:Performed By: #### [id number] ####[facility] ([facility])[address] [place] [address]Bbuufadztu (Bld) [Volume fraction]23.4 %Low39.0-50.0UnSt. John of God HospitalComment on above:Performed By: #### [id number] ####[facility] ([facility])[address] [place], [place] [address]Kvoeiqbgcj (Bld) [Mass/Vol]7.8 g/dLLow 13.0-17.0UnSt. John of God HospitalComment on above:Performed By: #### [id number] ####[facility] ([facility])[address] [place], [place] [address]CHPFVGBR PLATELET FRACTION %5.3 %Normal0.8-6.3UnSt. John of God HospitalComment on above:Performed By: #### [id number] ####[facility] ([facility])[address] [place], [place] [address]JVA (RBC) [Entitic mass]30.6 qcWhrbgw57.0-33.0UnSt. John of God HospitalComment on above:Performed By: #### [id number] ####[facility] ([facility])[address] [place], [place] [address]PUG (RBC) [Entitic vol] 91.8 eXYgbfja63.0-98.0UnSt. John of God HospitalComment on above: Performed By: #### [id number] ####[facility] ([facility])[address] [place] [address]JCRXSGXPT (10*3/UL) IN BLOOD AUTOMATED [id number] 10*3/uLLow 150-400UnSt. John of God HospitalComment on above:Performed By: #### [id number] ####[facility] ([facility])[address] [place] [address]VOV (Bld) [#/Vol]2.55 10*6/uLLow4.20-5.70UnSt. John of God HospitalComment on above:Performed By: #### [id number] ####[facility] ([facility])[address] [place] [address]UWI (Bld) [#/Vol]9.47 10*3/uLNormal4.00-10.60UnSt. John of God HospitalComment on above:Performed By: #### [id number] ####[facility] ([facility])[address] [place] [address]VHFCJLDFTcr 08-20-2024 Magnesium [Mass/Vol]2.1 mg/dLNormal1.9-2.7UnSt. John of God Hospital Comment on above:Performed By: #### [id number] ####[facility] ([facility])[address] [place] [address]JMQT GLUCOSE METER UNSOLICITED RESULTSon 08-20-2024 Glucose [Mass/Vol]103 mg/rKKmpzzg20-774FthpdqtihgMercy Health Willard Hospital Comment on above:Order Comment: Waived Testing in the ED is performed under the ED CLIA certificate #[id number].Result Comment: [id number] By: #### [id number] ####[facility] ([facility])[address] [place] [address]Revjxoh [Mass/Vol]113 mg/mPMozt40-589FrthyxwotvSt. John of God HospitalComment on above:Order Comment: Waived Testing in the ED is performed under the ED CLIA certificate #[id number].Result Comment: eboltzPerformed By: #### [id number] ####[facility] ([facility])[address] [place] [address]Bsjgntu [Mass/Vol]161 mg/vWTwrm07-393TsmfqxdviySt. John of God HospitalComment on above:Order Comment: Waived Testing in the ED is performed under the ED CLIA certificate #[id number].Result Comment: eboltzPerformed By: #### [id number] ####[facility] ([facility])[address] [place] [address]Yyfxlvq [Mass/Vol]122 mg/mVIgkg37-204TbicihyxegSt. John of God HospitalComment on above:Order Comment: Waived Testing in the ED is performed under the ED CLIA certificate #[id number].Result Comment: eboltzPerformed By: #### [id number] ####[facility] ([facility])[address] [place] [address]79zi 08-19-2024 30NormalUniversity [facility]30NormalUniversity [facility]30NormalUniversity [facility] Hospitals [facility] Medical CenterBASIC METABOLIC PANELon 07-88-3089Zliad gap [Moles/Vol]8 mmol/LNormal7-20UnSt. John of God HospitalComment on above:Performed By: #### [id number] ####[facility] ([facility])[address] [place], [place] [address]Jotypft [Mass/Vol]8.1 mg/dLLow8.6-10.3 [facility] HospitalComment on above:Performed By: #### [id number] ####[facility] ([facility])[address] [place], [place] [address]Zbtwwigl [Moles/Vol]99 mmol/FXjjqdz42-295ChwkmjrdtwSt. John of God HospitalComment on above:Performed By: #### [id number] ####[facility] ([facility])[address] [place], [place] [address]LA5 [Moles/Vol]31 mmol/NOjqoxh24-43PbdragctysSt. John of God HospitalComment on above:Performed By: #### [id number] ####[facility] ([facility])[address] [place] [address]Aslwqygewf [Mass/Vol]0.81 mg/dLNormal 0.70-1.30UnSt. John of God HospitalComment on above:Performed By: #### [id number] ####[facility] ([facility])[address] [place] [address]THCTFXJHHG FILTRATION RATE ML/MIN/1.73 SQ M.MHQLEATHZ80.5 mL/min/1.73m*2Normal>60.0 [facility] HospitalComment on above:Result Comment: [facility]???s estimated glomerular filtration rate (eG FR) will [...] group of individuals. Performed By: #### [id number] ####[facility] ([facility])[address] [place] [address]Beplkzl [Mass/Vol]115 mg/xJWvyq41-807LziltdrrrxSt. John of God HospitalComment on above:Performed By: #### [id number] ####[facility] ([facility])[address] [place] [address]Vzusonixm [Moles/Vol]3.9 mmol/LNormal 3.5-5.1UnSt. John of God HospitalComment on above:Performed By: #### [id number] ####[facility] ([facility])[address] [place] [address]Ddjhdf [Moles/Vol]134 mmol/IYgo700-006MfkuxcjcfsSt. John of God HospitalComment on above:Performed By: #### [id number] ####[facility] ([facility])[address], [place] [address]Blqs nitrogen [Mass/Vol]28 mg/dLHigh7-25UnSt. John of God HospitalComment on above:Performed By: #### [id number] ####[facility] ([facility])[address] [place], [place] [address]VKGJ NITROGEN/CREATININE (MASS RATIO) IN SER/PLAS34.6NormalUniversDetwiler Memorial HospitalComment on above: Performed By: #### [id number] ####[facility] ([facility])[address] [place], [place] [address]Mknfd gap [Moles/Vol]8 mmol/LNormal7-20UnSt. John of God HospitalComment on above:Performed By: #### [id number] ####[facility] ([facility])[address] [place], [place] [address]Akvlflr [Mass/Vol]8.0 mg/dLLow8.6-10.3 [facility] HospitalComment on above:Performed By: #### [id number] ####[facility] ([facility])[address] [place], [place] [address]Owjajikg [Moles/Vol]101 mmol/RHzqdpz62-807YsosdnkrinSt. John of God HospitalComment on above:Performed By: #### [id number] ####[facility] ([facility])[address] [place], [place] [address]FC1 [Moles/Vol]29 mmol/ZEknuqy61-29HvnnanwospSt. John of God HospitalComment on above:Performed By: #### [id number] ####[facility] ([facility])[address] [place], [place] [address]Rywgstmmht [Mass/Vol]0.76 mg/dLNormal 0.70-1.30UnSt. John of God HospitalComment on above:Performed By: #### [id number] ####[facility] ([facility])[address] [place], [place] [address]XSMRYSKNCM FILTRATION RATE ML/MIN/1.73 SQ M.BQEUXUBWF37.3 mL/min/1.73m*2Normal>60.0 [facility] HospitalComment on above:Result Comment: [facility]???s estimated glomerular filtration rate (eG FR) will [...] group of individuals. Performed By: #### [id number] ####[facility] ([facility])[address], [place] [address]Daimduw [Mass/Vol]116 mg/tRExyy07-005BtaluipbrrSt. John of God HospitalComment on above:Performed By: #### [id number] ####[facility] ([facility])[address], [place] [address]Vwwzoguvy [Moles/Vol]4.1 mmol/LNormal 3.5-5.1UnSt. John of God HospitalComment on above:Performed By: #### [id number] ####[facility] ([facility])[address], [place] [address]Sfgdfa [Moles/Vol]134 mmol/QNaz471-265HipisceotbSt. John of God HospitalComment on above:Performed By: #### [id number] ####[facility] ([facility])[address], [place] [address]Trhb nitrogen [Mass/Vol]26 mg/dLHigh7-25UnSt. John of God HospitalComment on above:Performed By: #### [id number] ####[facility] ([facility])[address], [place] [address]RLXM NITROGEN/CREATININE (MASS RATIO) IN SER/PLAS34.2NormalUnSt. John of God HospitalComment on above: Performed By: #### [id number] ####[facility] ([facility])[address], [place] [address]TLLlg 58-54-3347Xmvaumchwxd distribution width (RBC) [Ratio]13.3 % Irhxhl41.5-15.0UnSt. John of God HospitalComment on above:Performed By: #### [id number] ####[facility] ([facility])[address] [place] [address] ERYTHROCYTE MEAN CORPUSCULAR HEMOGLOBIN CONCENTRATION (G/DL) BY VOTVNUAYF38.5 g/gOSvbrnv74.0-35.0UnSt. John of God HospitalComment on above:Performed By: #### [id number] ####[facility] ([facility])[address] [place], [place] [address]Ucarqklsfz (Bld) [Volume fraction]26.5 %Low39.0-50.0UnSt. John of God HospitalComment on above:Performed By: #### [id number] ####[facility] ([facility])[address] [place], [place] [address]Vnglsgxzqc (Bld) [Mass/Vol]8.6 g/dLLow 13.0-17.0UnSt. John of God HospitalComment on above:Performed By: #### [id number] ####[facility] ([facility])[address] [place], [place] [address]DYESNJPT PLATELET FRACTION %5.6 %Normal0.8-6.3UnSt. John of God HospitalComment on above:Performed By: #### [id number] ####[facility] ([facility])[address] [place], [place] [address]SXC (RBC) [Entitic mass]30.4 xsFznigg83.0-33.0UnSt. John of God HospitalComment on above:Performed By: #### [id number] ####[facility] ([facility])[address] [place], [place] [address]MCS (RBC) [Entitic vol] 93.6 uJOckpix37.0-98.0UnSt. John of God HospitalComment on above: Performed By: #### [id number] ####[facility] ([facility])[address] [place], [place] [address]JURZHJXPW (10*3/UL) IN BLOOD AUTOMATED [id number] 10*3/uLLow 150-400UnSt. John of God HospitalComment on above:Performed By: #### [id number] ####[facility] ([facility])[address] [place] [address]BLA (d) [#/Vol]2.83 10*6/uLLow4.20-5.70UnSt. John of God HospitalComment on above:Performed By: #### [id number] ####[facility] ([facility])[address] [place] [address]DRP (Bld) [#/Vol]12.06 10*3/uLHigh4.00-10.60UnSt. John of God HospitalComment on above:Performed By: #### [id number] ####[facility] ([facility])[address] [place] [address]TSWPICTqf 08-19-2024 CONSULTNormalUniversity University Hospitals [facility] Medical CenterMAGNESIUMon 14-04-6558Xdvdoinuy [Mass/Vol]2.1 mg/dLNormal1.9-2.7UnSt. John of God HospitalComment on above:Performed By: #### [id number] ####[facility] ([facility])[address] [place] [address]Dycjgakio [Mass/Vol]2.2 mg/dLNormal1.9-2.7UnSt. John of God HospitalComment on above:Performed By: #### [id number] ####[facility] ([facility])[address] [place], [place] [address]MOHH GLUCOSE METER UNSOLICITED RESULTSon 31-50-9689Cnljsdf [Mass/Vol]168 mg/qOCqid53-878MgluqwbaubSt. John of God HospitalComment on above:Order Comment: Waived Testing in the ED is performed under the ED CLIA certificate #[id number].Result Comment: jrycmrj43Vvscveafc By: #### [id number] ####[facility] ([facility])[address] [place] [address]Yxurnfb [Mass/Vol]125 mg/mCHzky38-219VisuqtvoahSt. John of God HospitalComment on above:Order Comment: Waived Testing in the ED is performed under the ED CLIA certificate #[id number].Result Comment: isimmon5 Performed By: #### [id number] ####[facility] ([facility])[address] [place], [place] [address]Vycxphl [Mass/Vol]136 mg/qZQdww96-505GcdmyocvdxSt. John of God HospitalComment on above:Order Comment: Waived Testing in the ED is performed under the ED CLIA certificate #[id number].Result Comment: isimmon5 Performed By: #### [id number] ####[facility] ([facility])[address] [place], [place] [address]29fy 43-53-562521RexgkeQbohiewdjp of [place] [facility] Pqkikg47 NormalUnSt. John of God HospitalBASIC METABOLIC PANELon 10-13-79[address]Psicq gap [Moles/Vol]9 mmol/LNormal7-20UnSt. John of God HospitalComment on above:Performed By: #### [id number] ####[facility] ([facility])[address], [place] [address]Wgtpkqs [Mass/Vol]8.2 mg/dLLow8.6-10.3UnSt. John of God HospitalComment on above:Performed By: #### [id number] ####[facility] ([facility])[address], [place] [address]Dziagrkd [Moles/Vol]102 mmol/LNormal 98-107UnSt. John of God HospitalComment on above:Performed By: #### [id number] ####[facility] ([facility])[address], [place] [address]IA0 [Moles/Vol]29 mmol/GBeeuxa24-54DggtaafsggSt. John of God HospitalComment on above:Performed By: #### [id number] ####[facility] ([facility])[address], [place] [address]Nxcfskeazn [Mass/Vol]1.09 mg/dLNormal0.70-1.30UnSt. John of God HospitalComment on above:Performed By: #### [id number] ####[facility] ([facility])[address] [place] [address]NNXFDGBZEE FILTRATION RATE ML/MIN/1.73 SQ M.WXGMYJJPG84.2 mL/min/1.73m*2Normal>60.0UnSt. John of God HospitalComment on above:Result Comment: [facility]???s estimated glomerular filtration rate (eGFR) will [...] anyone group of individuals.Performed By: #### [id number] ####[facility] ([facility])[address] [place] [address]Bsvudkx [Mass/Vol]145 mg/dHCsze47-082SfxwuxpycrSt. John of God HospitalComment on above:Performed By: #### [id number] ####[facility] ([facility])[address] [place] [address]Szjjeyzlw [Moles/Vol]4.8 mmol/LNormal3.5-5.1UnSt. John of God HospitalComment on above:Performed By: #### [id number] ####[facility] ([facility])[address] [place] [address]Kbfqoz [Moles/Vol]135 mmol/LLow 136-145UnSt. John of God HospitalComment on above:Performed By: #### [id number] ####[facility] ([facility])[address] [place], [place] [address]Fkjl nitrogen [Mass/Vol]27 mg/dLHigh7-25UnSt. John of God HospitalComment on above:Performed By: #### [id number] ####[facility] ([facility])[address] [place], [place] [address]KHOC NITROGEN/CREATININE (MASS RATIO) IN SER/PLAS24.8Normal [facility] HospitalComment on above:Performed By: #### [id number] ####[facility] ([facility])[address] [place] [address]LNUASECrn 52-06-9857Xfemtyh [Mass/Vol]8.2 mg/dLLow8.6-10.3UnSt. John of God HospitalComment on above:Performed By: #### [id number] ####[facility] ([facility])[address] [place] [address]KUVpg 77-63-5000Yoqoclcccga distribution width (RBC) [Ratio]13.5 %Fygono87.5-15.0UnSt. John of God HospitalComment on above:Performed By: #### [id number] ####[facility] ([facility])[address] [address]IKSLBYKLXRD MEAN CORPUSCULAR HEMOGLOBIN CONCENTRATION (G/DL) BY OMXNFVBTJ11.0 g/kKWbzmiz54.0-35.0UnSt. John of God HospitalComment on above:Performed By: #### [id number] ####[facility] ([facility])[address] [place] [address]Ptsscnzrzx (Bld) [Volume fraction]26.7 %Low39.0-50.0UnSt. John of God HospitalComment on above: Performed By: #### [id number] ####[facility] ([facility])[address] [place] [address]Gpyanpvnkn (Bld) [Mass/Vol]8.8 g/dLLow13.0-17.0UnSt. John of God HospitalComment on above:Performed By: #### [id number] ####[facility] ([facility])[address] [place], [place] [address]BOKUJYQV PLATELET FRACTION %4.0 %Normal0.8-6.3UnSt. John of God HospitalComment on above: Performed By: #### [id number] ####[facility] ([facility])[address] [place] [address]HCD (RBC) [Entitic mass]30.4 usReiblv81.0-33.0UnSt. John of God HospitalComment on above:Performed By: #### [id number] ####[facility] ([facility])[address] [place] [address]GWN (RBC) [Entitic vol] 92.4 kQZuypou21.0-98.0UnSt. John of God HospitalComment on above: Performed By: #### [id number] ####[facility] ([facility])[address] [place] [address]QUTMGETSW (10*3/UL) IN BLOOD AUTOMATED YESCH530 10*3/uLLow 150-400UnSt. John of God HospitalComment on above:Performed By: #### [id number] ####[facility] ([facility])[address] [place] [address]GKN (Bld) [#/Vol]2.89 10*6/uLLow4.20-5.70UnSt. John of God HospitalComment on above:Performed By: #### [id number] ####[facility] ([facility])[address] [place] [address]EOW (Bld) [#/Vol]12.74 10*3/uLHigh4.00-10.60UnSt. John of God HospitalComment on above:Performed By: #### [id number] ####[facility] ([facility])[address] [place] [address]HIWQFOMSTzt 08-18-2024 Magnesium [Mass/Vol]2.2 mg/dLNormal1.9-2.7UnSt. John of God Hospital Comment on above:Performed By: #### [id number] ####[facility] ([facility])[address] [address]Myqfrnymt [Mass/Vol]2.1 mg/dLNormal1.9-2.7 [facility] HospitalComment on above:Performed By: #### [id number] ####[facility] ([facility])[address] [place] [address]RPORKQCFQEbv 20-32-0841Mpsxvzxer [Mass/Vol]3.2 mg/dLNormal2.5-5.0UnSt. John of God HospitalComment on above:Order Comment: Recheck Phosphorus level 2 hours after infusion.Performed By: #### [id number] ####[facility] ([facility])[address] [place], [place] [address]NZRO GLUCOSE METER UNSOLICITED RESULTSon 11-52-7979Qgrhepl [Mass/Vol]138 mg/rNBtrm77-351ZmqmswpwqaSt. John of God HospitalComment on above:Order Comment: Waived Testing in the ED is performed under the ED CLIA certificate #[id number].Result Comment: cdporbh7Cvltfkgaz By: #### [id number] ####[facility] ([facility])[address] [place], [place] [address]Xoptahs [Mass/Vol]161 mg/ySTbqu93-307UscbukbkewSt. John of God HospitalComment on above:Order Comment: Waived Testing in the ED is performed under the ED CLIA certificate #[id number].Result Comment: cgillsoPerformed By: #### [id number] ####[facility] ([facility])[address] [place], [place] [address]Egktbng [Mass/Vol]170 mg/qBDqfp04-402DtkheezhbkSt. John of God HospitalComment on above:Order Comment: Waived Testing in the ED is performed under the ED CLIA certificate #[id number].Result Comment: cgillsoPerformed By: #### [id number] ####[facility] ([facility])[address], [place] [address]Zmajtoa [Mass/Vol]158 mg/iLNcfu22-286JngoyhnoimSt. John of God HospitalComment on above:Order Comment: Waived Testing in the ED is performed under the ED CLIA certificate #[id number].Result Comment: cgillsoPerformed By: #### [id number] ####[facility] ([facility])[address], [place] [address]Qreotzv [Mass/Vol]161 mg/hLYntv21-314SfbcentcgkSt. John of God HospitalComment on above:Order Comment: Waived Testing in the ED is performed under the ED CLIA certificate #[id number].Result Comment: dfhlsmb8Qsjebicqk By: #### [id number] ####[facility] ([facility])[address] [address]ZBHKGLSXAwd 15-90-3443Wvpfqfrpb [Moles/Vol]4.6 mmol/LNormal3.5-5.1UnSt. John of God HospitalComment on above:Order Comment: Recheck Potassium level 2 hours after infusion.Performed By: #### [id number] ####[facility] ([facility])[address] [place] [address]xa 27-19-388533TkoiouCgcppczqxx of [place] [facility] Hixtum79TduizkWjhwovoyrvDetwiler Memorial HospitalAPTTon 83-20-3397JHIRGDGBA PARTIAL THROMBOPLASTIN TIME IN PPP BY COAGULATION ASSAY28.8 SecondsNormal 25.0-35.0UnSt. John of God HospitalComment on above:Result Comment: Clinical significance of the APTT is questionable in the presence of heparin. Performed By: #### [id number] ####[facility] ([facility])[address], [place] [address]UARPOBBP BLOOD GAS WITH CO-OXIMETRYon 86-10-6010Qtqh excess Calc (Bld) [Moles/Vol]0.8 mmol/LNormal-2.0-3.0UnSt. John of God HospitalComment on above:Performed By: #### [id number] ####[facility] [id number] [place] [address] USACARBOXYHEMOGLOBIN/HEMOGLOBIN TOTAL % IN BLOOD1.1 %Normal0.0-3.0UnSt. John of God HospitalComment on above: Performed By: #### [id number] ####[facility] [id number] [place] [address] USACO2 (Bld) [Partial pressure]47 mm[Hg]Dkjrbp33-51ZqjcvkmwufSt. John of God HospitalComment on above:Performed By: #### [id number] ####[facility] [id number] [place] [address] USADEOXYGENATED HEMOGLOBIN IN BLOOD2.1 %Normal1-5UnSt. John of God HospitalComment on above: Performed By: #### [id number] ####[facility] [id number] [place] [address] CVDBKS873 %NormalUnSt. John of God HospitalComment on above: Performed By: #### [id number] ####[facility] [id number] [place] [address] USAHCO3 (Bld) [Moles/Vol]26.6 mmol/MRwcnhi69.0-28.0UnSt. John of God HospitalComment on above:Performed By: #### [id number] ####[facility] [id number] [place] [address] USAHemoglobin (Bld) [Mass/Vol]10.1 g/dLLow11.7-17.4UnSt. John of God HospitalComment on above:Performed By: #### [id number] ####[facility] [id number] [place] [address] NYRTBE8InmquaGdklbegnsgDetwiler Memorial HospitalComment on above:Performed By: #### [id number] ####[facility] [id number] [place] [address] USAMETHEMOGLOBIN/100 IN BLOOD1.1 %Normal0.0-1.5UnSt. John of God HospitalComment on above:Performed By: #### [id number] ####[facility] [id number] [place] [address] USAOxygen (Bld) [Partial pressure]86 mm[Hg]Jzicby11-592QwvyfbekwkSt. John of God HospitalComment on above:Performed By: #### [id number] ####[facility] [id number] [place] [address] USAOXYGEN SATURATION (%) IN ARTERIAL BLOOD97.9 %Normal 94.0-98.0UnSt. John of God HospitalComment on above:Performed By: #### [id number] ####[facility] [id number] [place] [address] [place] OXYGENATED HEMOGLOBIN IN BLOOD95.6 %High90.0-95.0UnSt. John of God HospitalComment on above:Performed By: #### [id number] ####[facility] [id number] [place] [address] USApH (Bld)7.36 [pH]Normal7.35-7.45 [facility] HospitalComment on above:Performed By: #### [id number] ####[facility] [id number] [place] [address] USASOURCE OF OXYGENNasal cannulaNormalUniversity University Hospitals Portage Medical CenterComment on above: Performed By: #### [id number] ####[facility] [id number] [place] [address] USABASIC METABOLIC PANELon 59-62-3048Bmoim gap [Moles/Vol]11 mmol/L Normal7-20UnSt. John of God HospitalComment on above:Performed By: #### [id number] ####[facility] (BEAKER)[address] [place], [place] [address]Cavohsx [Mass/Vol]8.3 mg/dLLow8.6-10.3UnSt. John of God HospitalComment on above:Performed By: #### [id number] ####[facility] (BEAKER)[address] [place], [place] [address]Rlmnpbny [Moles/Vol]102 mmol/QTqkyoh28-981FululwroawSt. John of God HospitalComment on above:Performed By: #### [id number] ####[facility] (BEAKER)[address] [place], [place] [address]JQ1 [Moles/Vol]28 mmol/LNormal 21-31UnSt. John of God HospitalComment on above:Performed By: #### [id number] ####[facility] (BEAKER)[address] [place], [place] [address]Voxhiwaxwj [Mass/Vol]1.13 mg/dLNormal0.70-1.30UnSt. John of God HospitalComment on above:Performed By: #### [id number] ####[facility] (BEAKER)[address] [place], [place] [address]FFNCHWXVXV FILTRATION RATE ML/MIN/1.73 SQ M.EANZKPQEY38.2 mL/min/1.73m*2Normal>60.0UnSt. John of God HospitalComment on above: Result Comment: [facility]???s estimated glomerular filtration rate (eGFR) will [...] anyone group of individuals.Performed By: #### [id number] ####[facility] ([facility])[address] [place], [place] [address]Jcvoddt [Mass/Vol]166 mg/pYFwhh13-125RbeqsyxvtnSt. John of God HospitalComment on above:Performed By: #### [id number] ####[facility] ([facility])[address] [place], [place] [address]Tlmmlkrjk [Moles/Vol]4.3 mmol/L Normal3.5-5.1UnSt. John of God HospitalComment on above:Performed By: #### [id number] ####[facility] ([facility])[address] [place] [address] Sodium [Moles/Vol]137 mmol/NPsiewp888-069CnjwessmuuSt. John of God Hospital Comment on above:Performed By: #### [id number] ####[facility] ([facility])[address] [place], [place] [address]Uujd nitrogen [Mass/Vol]24 mg/dLNormal7-25 [facility] HospitalComment on above:Performed By: #### [id number] ####[facility] ([facility])[address] [place], [place] [address]OXSE NITROGEN/CREATININE (MASS RATIO) IN SER/PLAS21.2NormalUnSt. John of God HospitalComment on above:Performed By: #### [id number] ####[facility] ([facility])[address] [place], [place] [address]Mcbfu gap [Moles/Vol]10 mmol/LNormal 7-20UnSt. John of God HospitalComment on above:Performed By: #### [id number] ####[facility] ([facility])[address] [place], [place] [address]Ewmynoz [Mass/Vol]8.4 mg/dLLow8.6-10.3UnSt. John of God HospitalComment on above:Performed By: #### [id number] ####[facility] ([facility])[address] [place], [place] [address]Otvhdyys [Moles/Vol]107 mmol/BBkumov99-875GjlnfbcnrySt. John of God HospitalComment on above:Performed By: #### [id number] ####[facility] ([facility])[address] [place], [place] [address]MM5 [Moles/Vol]28 mmol/LNormal 21-31UnSt. John of God HospitalComment on above:Performed By: #### [id number] ####[facility] ([facility])[address] [place], [place] [address]Tmnvxauvzb [Mass/Vol]1.16 mg/dLNormal0.70-1.30UnSt. John of God HospitalComment on above:Performed By: #### [id number] ####[facility] ([facility])[address] [place], [place] [address]WLPIHVNSOV FILTRATION RATE ML/MIN/1.73 SQ M.DFEDQSPZC67.1 mL/min/1.73m*2Normal>60.0UnSt. John of God HospitalComment on above: Result Comment: [facility]???s estimated glomerular filtration rate (eGFR) will [...] anyone group of individuals.Performed By: #### [id number] ####[facility] ([facility])[address] [place], [place] [address]Gztxqys [Mass/Vol]167 mg/bBFrbq34-891PavhylywekSt. John of God HospitalComment on above:Performed By: #### [id number] ####[facility] ([facility])[address] [place] [address]Vlkusgerh [Moles/Vol]4.2 mmol/L Normal3.5-5.1UnSt. John of God HospitalComment on above:Performed By: #### [id number] ####[facility] ([facility])[address] [place] [address] Sodium [Moles/Vol]141 mmol/NVfqval676-385XvqptexpvySt. John of God Hospital Comment on above:Performed By: #### [id number] ####[facility] ([facility])[address] [place], [place] [address]Jkcb nitrogen [Mass/Vol]21 mg/dLNormal7-25 [facility] HospitalComment on above:Performed By: #### [id number] ####[facility] ([facility])[address] [place], [place] [address]ORDT NITROGEN/CREATININE (MASS RATIO) IN SER/PLAS18.1NormalUnSt. John of God HospitalComment on above:Performed By: #### [id number] ####[facility] ([facility])[address] [place], [place] [address]GKRCVME, IONIZEDon 54-84-2484NROXWLF IONIZED (MMOL/L) IN BLOOD1.13 mmol/LLow1.15-1.33UnSt. John of God HospitalComment on above:Performed By: #### [id number] ####[facility] [id number] [place] [address] USACALCIUM IONIZED (MMOL/L) IN BLOOD1.26 mmol/L Normal1.15-1.33UnSt. John of God HospitalComment on above:Performed By: #### CALCIUM, IONIZED ####[facility] [id number] [place] [address] USACBCon 71-15-4350Hhilvjllfdj distribution width (RBC) [Ratio]13.5 % Eysvyd42.5-15.0UnSt. John of God HospitalComment on above:Performed By: #### [id number] ####[facility] (BEAKER)[address] [place] [address] ERYTHROCYTE MEAN CORPUSCULAR HEMOGLOBIN CONCENTRATION (G/DL) BY BXFSAPRTE49.1 g/tVMbisbc51.0-35.0UnSt. John of God HospitalComment on above:Performed By: #### [id number] ####[facility] ([facility])[address] [place] [address]Zrzhhlavcv (Bld) [Volume fraction]26.7 %Low39.0-50.0UnSt. John of God HospitalComment on above:Performed By: #### [id number] ####[facility] ([facility])[address] [place] [address]Ujmfccoggt (Bld) [Mass/Vol]9.1 g/dLLow 13.0-17.0UnSt. John of God HospitalComment on above:Performed By: #### [id number] ####[facility] ([facility])[address] [place] [address]ECXTTXHF PLATELET FRACTION %3.5 %Normal0.8-6.3UnSt. John of God HospitalComment on above:Performed By: #### [id number] ####[facility] ([facility])[address] [place] [address]MSK (RBC) [Entitic mass]30.3 ojNmyngr18.0-33.0UnSt. John of God HospitalComment on above:Performed By: #### [id number] ####[facility] ([facility])[address] [place] [address]ISW (RBC) [Entitic vol] 89.0 pSOgmoqo28.0-98.0UnSt. John of God HospitalComment on above: Performed By: #### [id number] ####[facility] ([facility])[address] [place] [address]LKLGDCFSN (10*3/UL) IN BLOOD AUTOMATED CYKBC194 10*3/uLLow 150-400UnSt. John of God HospitalComment on above:Performed By: #### [id number] ####[facility] ([facility])[address] [address]PHL (Bld) [#/Vol]3.00 10*6/uLLow4.20-5.70UnSt. John of God HospitalComment on above:Performed By: #### [id number] ####[facility] ([facility])[address] [address]KJM (Bld) [#/Vol]15.49 10*3/uLHigh4.00-10.60UnSt. John of God HospitalComment on above:Performed By: #### [id number] ####[facility] ([facility])[address] [address]Vocpdvnyeef distribution width (RBC) [Ratio]13.2 %Bmckkg69.5-15.0UnSt. John of God Hospital Comment on above:Performed By: #### [id number] ####[facility] ([facility])[address] [address]QDYOCFZFJRB MEAN CORPUSCULAR HEMOGLOBIN CONCENTRATION (G/DL) BY THRXRGCVW11.6 g/wYWsyzoq10.0-35.0UnSt. John of God HospitalComment on above:Performed By: #### [id number] ####[facility] ([facility])[address] [address]Mjsoimcgfn (Bld) [Volume fraction]28.6 %Low39.0-50.0UnSt. John of God HospitalComment on above:Performed By: #### [id number] ####[facility] ([facility])[address] [address] Hemoglobin (Bld) [Mass/Vol]9.6 g/dLLow13.0-17.0UnSt. John of God HospitalComment on above:Performed By: #### [id number] ####[facility] ([facility])[address] [place] [address]JFA (RBC) [Entitic mass]30.4 pgNormal 27.0-33.0UnSt. John of God HospitalComment on above:Performed By: #### [id number] ####[facility] ([facility])[address] [address]HSD (RBC) [Entitic vol]90.5 ySIglpvq90.0-98.0UnSt. John of God HospitalComment on above:Performed By: #### [id number] ####[facility] ([facility])[address] [place] [address]OKFDPNIWU (10*3/UL) IN BLOOD AUTOMATED NHXYN072 10*3/uLNormal 150-400UnSt. John of God HospitalComment on above:Performed By: #### [id number] ####[facility] ([facility])[address] [place] [address]GOP (Bld) [#/Vol]3.16 10*6/uLLow4.20-5.70UnSt. John of God HospitalComment on above:Performed By: #### [id number] ####[facility] ([facility])[address] [place] [address]NAK (Bld) [#/Vol]14.46 10*3/uLHigh4.00-10.60UnSt. John of God HospitalComment on above:Performed By: #### [id number] ####[facility] ([facility])[address] [place] [address]WUJLXHTve 08-17-2024 CONSULTNormalUniversity University Hospitals Portage Medical CenterLACTIC ACID WITH 4 HOUR REFLEXon 35-00-2152IKZMXMX (MMOL/L) IN SER/PLAS2.8 mmol/LCritically high0.5-2.2 [facility] HospitalComment on above:Performed By: #### [id number] ####[facility] ([facility])[address] [place] [address]AVGXLT ACID, PLASMAon 31-63-5221HKMPHVW (MMOL/L) IN SER/PLAS2.6 mmol/LCritically high0.5-2.2 [facility] HospitalComment on above:Result Comment: Previous result verified on 08/17/2024 0343 on specimen/case [id number] called with component Lactate blood venous for procedure Lactic acid with 4 hour reflex with value 2.8 mmol/L.Performed By: #### [id number] ####[facility] ([facility])[address] [facility] [place], [place] [address]SJVMNGBSGag 21-04-5073Hqqjnyamb [Mass/Vol]1.9 mg/dL Normal1.9-2.7UnSt. John of God HospitalComment on above:Performed By: #### [id number] ####[facility] ([facility])[address] [place] [address] Magnesium [Mass/Vol]2.0 mg/dLNormal1.9-2.7UnSt. John of God Hospital Comment on above:Performed By: #### [id number] ####[facility] ([facility])[address] [place], [place] [address]DNCLFMXAIDij 16-17-8949Snuvibdwb [Mass/Vol]3.9 mg/dLNormal2.5-5.0UnSt. John of God HospitalComment on above:Performed By: #### [id number] ####[facility] ([facility])[address] [facility] [place] [address] Magnesium [Mass/Vol]3.4 mg/dLNormal2.5-5.0UnSt. John of God Hospital Comment on above:Performed By: #### [id number] ####[facility] ([facility])[address] [place], [place] [address]ZRDA GLUCOSE METER UNSOLICITED RESULTSon 08-17-2024 Glucose [Mass/Vol]187 mg/vCUrte80-969UndjuokjnmSt. John of God HospitalComment on above:Order Comment: Waived Testing in the ED is performed under the ED CLIA certificate #[id number].Result Comment: oiwhrgo1Xepchhfqa By: #### [id number] ####[facility] (BEAKER)[address] [place], [place] [address]Pfbphjx [Mass/Vol]169 mg/yGJgvd98-494IidpmxgkpySt. John of God HospitalComment on above:Order Comment: Waived Testing in the ED is performed under the ED CLIA certificate #[id number].Result Comment: wnnnnhe3Fkfesxuwj By: #### [id number] ####[facility] (BEAKER)[address] [place], [place] [address]Dsqnngq [Mass/Vol]150 mg/qRFlnw35-745AqangvfogkSt. John of God HospitalComment on above:Order Comment: Waived Testing in the ED is performed under the ED CLIA certificate #[id number].Result Comment: gcrigaf3Bvwfzlytt By: #### [id number] ####[facility] (BEAKER)[address] [place], [place] [address]Hjxmrik [Mass/Vol]165 mg/fHUeob17-012PpizhqwzqjSt. John of God HospitalComment on above:Order Comment: Waived Testing in the ED is performed under the ED CLIA certificate #[id number].Result Comment: waavean8Gyisgswfn By: #### [id number] ####[facility] (BEAKER)[address] [place], [place] [address]Exmgtsb [Mass/Vol]157 mg/qNZmei39-627AhgomhedboSt. John of God HospitalComment on above:Order Comment: Waived Testing in the ED is performed under the ED CLIA certificate #[id number].Result Comment: lkifnyr8Crkczvzzk By: #### [id number] ####[facility] (BEAKER)[address] [place], [place] [address]Fuittts [Mass/Vol]148 mg/dOSpwk77-229XlvygvhttqSt. John of God HospitalComment on above:Order Comment: Waived Testing in the ED is performed under the ED CLIA certificate #[id number].Result Comment: nfdnboc6Pgjodpbyk By: #### [id number] ####[facility] (BEAKER)[address] [place], [place] [address]Qvyhbdd [Mass/Vol]154 mg/pRMmwf12-826Blvuhddred of Escalante Medical CenterComment on above:Order Comment: Waived Testing in the ED is performed under the ED CLIA certificate #[id number].Result Comment: ucfdlsm9Izyqjmwrp By: #### [id number] ####[facility] (BEAKER)[address] [place], [place] [address]Hzqrrri [Mass/Vol]169 mg/zBInlq94-606EaywjahlhnSt. John of God HospitalComment on above:Order Comment: Waived Testing in the ED is performed under the ED CLIA certificate #[id number].Result Comment: immkgeu1Heinmcvzn By: #### [id number] ####[facility] (BEAKER)[address] [place], [place] [address]Lbetlit [Mass/Vol]159 mg/vWAllo22-572EwtdwjbuouSt. John of God HospitalComment on above:Order Comment: Waived Testing in the ED is performed under the ED CLIA certificate #[id number].Result Comment: azpaodi8Oclvhqtmn By: #### [id number] ####[facility] (BEAKER)[address] [place], [place] [address]Zqlxhkp [Mass/Vol]167 mg/fWRiof49-775CiyoovjgxdSt. John of God HospitalComment on above:Order Comment: Waived Testing in the ED is performed under the ED CLIA certificate #[id number].Result Comment: bhegbqe4Nqufanpry By: #### [id number] ####[facility] (BEAKER)[address] [place], [place] [address]Mqdpsjp [Mass/Vol]185 mg/tVOpdj34-323HgjmiufslfSt. John of God HospitalComment on above:Order Comment: Waived Testing in the ED is performed under the ED CLIA certificate #[id number].Result Comment: rxemrdo6Bkxqwukea By: #### [id number] ####[facility] (BEAKER)[address] [place], [place] [address]Phbktdo [Mass/Vol]203 mg/eAHdlg99-613HbuczihahzSt. John of God HospitalComment on above:Order Comment: Waived Testing in the ED is performed under the ED CLIA certificate #[id number].Result Comment: mbcjvaa0Gmnljufwb By: #### [id number] ####[facility] (BEAKER)[address] [place], [place] [address]EDRWSOAXQ, WHOLE BLOODon 60-50-0211Rweqjwedu [Moles/Vol]4.2 mmol/LNormal3.5-5.1UnSt. John of God HospitalComment on above:Performed By: #### POTASSIUM, WHOLE BLOOD ####[facility] [id number] [place] [address] USAPROTIME-INRon 47-61-3209EAP IN PPP BY COAGULATION ASSAY1.78Jszx9.90-1.10UnSt. John of God HospitalComment on above:Order Comment: On arrival to [...] THERAPE UTIC RANGE. CHEST 1995;108:231S-246S.Performed By: #### [id number] ####[facility] (BEAKER)[address] [place], [place] [address]ZEDPHJLDVZE TIME (PT) IN PPP BY COAGULATION ASSAY14.7 AprukptVdiqri00.3-14.8UnSt. John of God HospitalComment on above:Order Comment: On arrival to SICUPerformed By: #### [id number] ####[facility] (BEAKER)[address] [facility] [place], [place] [address]JGGRUQ, WHOLE BLOODon 48-97-9632NAQUVY, WHOLE ZWOSV047Bemqbv211-050PlblnpoxstSt. John of God HospitalComment on above:Performed By: #### SODIUM, WHOLE BLOOD ####[facility] [id number] [place] [address] USAVENOUS BLOOD GAS WITH CO-OXIMETRYon 98-27-5190Nvfr excess Calc (BldV) [Moles/Vol]1.2 mmol/LNormal [facility] HospitalComment on above:Performed By: #### [id number] ####[facility] [id number] [place] [address] [facility] CARBOXYHEMOGLOBIN/HEMOGLOBIN TOTAL % IN BLOOD1.2 %NormalUnSt. John of God HospitalComment on above:Performed By: #### [id number] ####[facility] RES[facility] [id number] [place] [address] USACO2 (BldV) [Partial pressure]51 mm[Hg]Bqsa68-34JqcrfogrpaSt. John of God HospitalComment on above:Performed By: #### [id number] ####[facility] RES[facility] [id number] [place] [address] [place] HCO3 (Bld) [Moles/Vol]27.5 mmol/LNormalUnSt. John of God Hospital Comment on above:Performed By: #### [id number] ####[facility] [id number] [place] [address] USAHemoglobin (Bld) [Mass/Vol]10.0 g/dLNormal [facility] Willard HospitalComment on above:Performed By: #### [id number] ####[facility] [id number] [place] [address] [place] METHEMOGLOBIN/100 IN BLOOD0.8 %Normal0.0-1.5UnSt. John of God Hospital Comment on above:Performed By: #### [id number] ####[facility] [id number] [place] [address] USAOxygen (BldV) [Partial pressure]37 mm[Hg]Normal 35-45UnSt. John of God HospitalComment on above:Performed By: #### [id number] ####[facility] [id number] [place] [address] USAOXYGEN SATURATION (%) IN VENOUS BLOOD62.8 %Low65.0-75.0UnSt. John of God HospitalComment on above:Performed By: #### [id number] ####[facility] [id number] [place] [address] USAOXYGENATED HEMOGLOBIN IN BLOOD61.5 %NormalUnSt. John of God HospitalComment on above:Performed By: #### [id number] ####[facility] [id number] [place] [address] USAPH OF VENOUS BLOOD7.01Yezyqt9.31-7.41UnSt. John of God HospitalComment on above:Performed By: #### [id number] ####[facility] [id number] [place] [address] USAVENOUS BLOOD GAS WITH IONIZED CALCIUMon 81-60-8241Kxgf excess Calc (BldV) [Moles/Vol]2.5 mmol/LNormalUnSt. John of God HospitalComment on above:Performed By: #### [id number] ####[facility] [id number] [place] [address] USACALCIUM IONIZED (MMOL/L) IN BLOOD 1.28 mmol/LNormal1.15-1.33UnSt. John of God HospitalComment on above: Performed By: #### [id number] ####[facility] [id number] [place] [address] USACO2 (BldV) [Partial pressure]53 mm[Hg]Qkfn60-91DrffxcenkhSt. John of God HospitalComment on above:Performed By: #### [id number] ####[facility] [id number] [place] [address] USAHCO3 (Bld) [Moles/Vol]29.3 mmol/L NormalMercy Health Willard HospitalComment on above:Performed By: #### [id number] ####[facility] [id number] [place] [address] USAOxygen (BldV) [Partial pressure]40 mm[Hg]Xpxkjb88-22FiyogfvbycSt. John of God HospitalComment on above:Performed By: #### [id number] ####[facility] [id number] [place] [address] USAOXYGEN SATURATION (%) IN VENOUS BLOOD65.7 %Onived90.0-75.0UnSt. John of God HospitalComment on above: Performed By: #### [id number] ####[facility] [id number] [place] [address] USAPH OF VENOUS BLOOD7.39Teybcr2.31-7.41UnSt. John of God HospitalComment on above:Performed By: #### [id number] ####[facility] [id number] [place] [address] YDT36my [id number] of [facility] Medical CenterANESon 77-43-6358KXCZIkflcaJqlkiglxvg of [facility] Medical CenterANTI-XA (HEPARIN LEVEL)on 94-89-6017ASZNXJY UNFRACTIONATED (U/ML) IN PPP BY CHROMOGENIC METHOD0.27 IU/mLLow0.3-0.7UnSt. John of God Hospital Comment on above:Order Comment: Check anti-Xa level every 6 hours while on heparin infusion, or per protocol.Result Comment: Rivaroxaban and Apixaban will interfere with the anti Xa assay used to monitor UFH and LMWH.Performed By: #### [id number] ####[facility] ([facility])[address] [place], [place] [address]HZQXfn 89-33-9474UOEDKXBYM PARTIAL THROMBOPLASTIN TIME IN PPP BY COAGULATION ASSAY32.6 KlvegcbNdipni01.0-35.0UnSt. John of God HospitalComment on above:Order Comment: On arrival to [facility]ITALUResult Comment: Clinical significance of the APTT is questionable in the presence of heparin.Performed By: #### [id number] ####[facility] (BEAKER)[address] [place], [place] [address]VLIXYYTPG PARTIAL THROMBOPLASTIN TIME IN PPP BY COAGULATION ASSAY48.1 PymmrpbIbas11.0-35.0 [facility] HospitalComment on above:Result Comment: Clinical significance of the APTT is questionable in the presence of heparin.Performed By: #### [id number] ####[facility] (BEAKER)[address] [place] [address] ARTERIAL BLOOD GAS WITH CO-OXIMETRYon 02-70-9077Kweb excess Calc (Bld) [Moles/Vol]0.4 mmol/LNormal-2.0-3.0UnSt. John of God HospitalComment on above:Performed By: #### [id number] ####[facility] [id number] [place] [address] USACARBOXYHEMOGLOBIN/HEMOGLOBIN TOTAL % IN BLOOD1.9 %Normal 0.0-3.0UnSt. John of God HospitalComment on above:Performed By: #### [id number] ####[facility] [id number] [place] [address] USACO2 (Bld) [Partial pressure]56 mm[Hg]Critically nlzo50-59DycowhgmsrSt. John of God HospitalComment on above:Performed By: #### [id number] ####[facility] [id number] [place] [address] USADEOXYGENATED HEMOGLOBIN IN BLOOD3.2 %Normal1-5UnSt. John of God HospitalComment on above:Performed By: #### [id number] ####[facility] [id number] [place] [address] [place] HCO3 (Bld) [Moles/Vol]27.6 mmol/LTzkfjl96.0-28.0UnSt. John of God HospitalComment on above:Performed By: #### [id number] ####[facility] [id number] [place] [address] USAHemoglobin (Bld) [Mass/Vol]10.7 g/dLLow11.7-17.4UnSt. John of God HospitalComment on above:Performed By: #### [id number] ####[facility] [id number] [place] [address] TSUMXC1RjknquRndcvplznsDetwiler Memorial HospitalComment on above:Performed By: #### [id number] ####[facility] [id number] [address] [place] [address] [place] METHEMOGLOBIN/100 IN BLOOD0.6 %Normal0.0-1.5UnSt. John of God Hospital Comment on above:Performed By: #### [id number] ####[facility] [id number] [place] [address] USAOxygen (Bld) [Partial pressure]80 mm[Hg]Low 83-100UnSt. John of God HospitalComment on above:Performed By: #### [id number] ####[facility] [id number] [address] [place] [address] USAOXYGEN SATURATION (%) IN ARTERIAL BLOOD96.7 %Qwkxga04.0-98.0UnSt. John of God HospitalComment on above:Performed By: #### [id number] ####[facility] [id number] [address] [place] [address] USAOXYGENATED HEMOGLOBIN IN BLOOD94.3 %Sclnrz84.0-95.0UnSt. John of God HospitalComment on above:Performed By: #### [id number] ####[facility] [id number] [address] [place] [address] USApH (Bld)7.30 [pH]Low7.35-7.45UnSt. John of God HospitalComment on above:Performed By: #### [id number] ####[facility] [id number] [address] [place] [address] USASOURCE OF OXYGENNasal cannulaNormalUniversity University Hospitals Portage Medical CenterComment on above:Performed By: #### [id number] ####[facility] [id number] [place] [address] USAARTERIAL BLOOD GAS WITH IONIZED CALCIUMon 03-24-0845Dmte excess Calc (Bld) [Moles/Vol]0.3 mmol/LNormal-2.0-3.0 [facility] HospitalComment on above:Performed By: #### [id number] ####[facility] [id number] [address] [place] [address] USACALCIUM IONIZED (MMOL/L) IN BLOOD1.30 mmol/LNormal1.15-1.33UnSt. John of God HospitalComment on above:Performed By: #### [id number] ####[facility] [id number] [place] [address] USACO2 (Bld) [Partial pressure]48 mm[Hg]Psvfku96-51EsxrbmsvnoSt. John of God HospitalComment on above:Performed By: #### [id number] ####[facility] RESP[facility] [id number] [place] [address] USAHCO3 (Bld) [Moles/Vol]26.5 mmol/TJtbcpg72.0-28.0UnSt. John of God HospitalComment on above:Performed By: #### [id number] ####[facility] [id number] [place] [address] RQYPEK6MzqppaWnvbtrqfgoLakeHealth TriPoint Medical CenterComment on above:Performed By: #### [id number] ####[facility] IYXPWQX3903 [place] [address] USAOxygen (Bld) [Partial pressure]70 mm[Hg]Yoh59-523DngoarcovqSt. John of God HospitalComment on above:Performed By: #### [id number] ####[facility] [id number] [place] [address] [place] OXYGEN SATURATION (%) IN ARTERIAL BLOOD95.0 %Jxylnd39.0-98.0UnSt. John of God HospitalComment on above:Performed By: #### [id number] ####[facility] RESP[facility] [id number] [place] [address] USApH (Bld)7.35 [pH]Normal7.35-7.45 [facility] HospitalComment on above:Performed By: #### [id number] ####[facility] RESP[facility] [id number] [place] [address] USASOURCE OF OXYGENNasal cannulaNormalUniGreene Memorial HospitalComment on above: Performed By: #### [id number] ####[facility] GYAEXDF7057 [place] [address] USABASIC METABOLIC PANELon 94-52-8634Tnzyd gap [Moles/Vol]10 mmol/L Normal7-20UnSt. John of God HospitalComment on above:Performed By: #### [id number] ####[facility] ([facility])[address] [address]Zohsuzr [Mass/Vol]8.5 mg/dLLow8.6-10.3UnSt. John of God HospitalComment on above:Performed By: #### [id number] ####[facility] ([facility])[address] [place] [address]Frobdygv [Moles/Vol]108 mmol/PBkwf81-247IsilwlrozjSt. John of God HospitalComment on above:Performed By: #### [id number] ####[facility] ([facility])[address] [place] [address]AJ3 [Moles/Vol]27 mmol/POeigfi95-74 [facility] HospitalComment on above:Performed By: #### [id number] ####[facility] ([facility])[address] [place] [address]Ykfudqbezf [Mass/Vol]1.08 mg/dLNormal0.70-1.30UnSt. John of God HospitalComment on above:Performed By: #### [id number] ####[facility] ([facility])[address] [place], [place] [address]TWBTQNMSAL FILTRATION RATE ML/MIN/1.73 SQ M.UFJGKVWJZ45.0 mL/min/1.73m*2Normal>60.0UnSt. John of God HospitalComment on above: Result Comment: [facility]???s estimated glomerular filtration rate (eGFR) will [...] anyone group of individuals.Performed By: #### [id number] ####[facility] (BEAKER)[address] [place], [place] [address]Hgisbmp [Mass/Vol]179 mg/jLSpvw25-135JpbjffalaySt. John of God HospitalComment on above:Performed By: #### [id number] ####[facility] ([facility])[address] [place], [place] [address]Ymcxutjrx [Moles/Vol]4.4 mmol/L Normal3.5-5.1UnSt. John of God HospitalComment on above:Performed By: #### [id number] ####[facility] ([facility])[address] [place] [address] Sodium [Moles/Vol]141 mmol/JWvivvs583-264YkjfycklaiSt. John of God Hospital Comment on above:Performed By: #### [id number] ####[facility] ([facility])[address] [place], [place] [address]Dmsf nitrogen [Mass/Vol]18 mg/dLNormal7-25 [facility] HospitalComment on above:Performed By: #### [id number] ####[facility] ([facility])[address] [place], [place] [address]CXQS NITROGEN/CREATININE (MASS RATIO) IN SER/PLAS16.7NormalUniversDetwiler Memorial HospitalComment on above:Performed By: #### [id number] ####[facility] ([facility])[address] [place], [place] [address]Vetsj gap [Moles/Vol]10 mmol/LNormal 7-20UnSt. John of God HospitalComment on above:Order Comment: On arrival to SICUPerformed By: #### [id number] ####[facility] ([facility])[address] [place], [place] [address]Iuiqjhz [Mass/Vol]9.1 mg/dLNormal8.6-10.3UnSt. John of God HospitalComment on above:Order Comment: On arrival to SICU Performed By: #### [id number] ####[facility] (BEAKER)[address] [place], [place] [address]Tmmprxtd [Moles/Vol]107 mmol/EPodmkn98-428RehqrythuhSt. John of God HospitalComment on above:Order Comment: On arrival to SICUPerformed By: #### [id number] ####[facility] ([facility])[address] [address]MB9 [Moles/Vol] 28 mmol/EEkpmdf72-11AknnbadyyySt. John of God HospitalComment on above:Order Comment: On arrival to SICUPerformed By: #### [id number] ####[facility] ([facility])[address] [place] [address]Mxmdweeulz [Mass/Vol]1.00 mg/dLNormal 0.70-1.30UnSt. John of God HospitalComment on above:Order Comment: On arrival to SICUPerformed By: #### [id number] ####[facility] ([facility])[address] [place] [address]LDWRRNYCUG FILTRATION RATE ML/MIN/1.73 SQ M.MDLDCRTBB04.0 mL/min/1.73m*2Normal>60.0UnSt. John of God Hospital Comment on above:Order Comment: On arrival to SICUResult Comment: [facility]???s estimated glomerular filtration rate (eGFR) will [...] group of individuals. Performed By: #### [id number] ####[facility] ([facility])[address] [place] [address]Nzatfco [Mass/Vol]158 mg/nACiug82-897GijonqrozaSt. John of God HospitalComment on above:Order Comment: On arrival to SICUPerformed By: #### [id number] ####[facility] ([facility])[address] [place], [place] [address]Zzlwlbeim [Moles/Vol]4.2 mmol/LNormal3.5-5.1UnSt. John of God HospitalComment on above:Order Comment: On arrival to SICUPerformed By: #### [id number] ####[facility] HOSPITAL LAB (BEAKER)[address] [place] [address]Wabxlf [Moles/Vol]141 mmol/SZmxxzo855-513JkscwilezuSt. John of God HospitalComment on above:Order Comment: On arrival to SICUPerformed By: #### [id number] ####[facility] ([facility])[address] [place], [place] [address]Usrn nitrogen [Mass/Vol]16 mg/dLNormal 7-25UnSt. John of God HospitalComment on above:Order Comment: On arrival to SICUPerformed By: #### [id number] ####[facility] ([facility])[address] [place], [place] [address]WPPX NITROGEN/CREATININE (MASS RATIO) IN SER/PLAS 16.0NormalUniversDetwiler Memorial HospitalComment on above:Order Comment: On arrival to SICUPerformed By: #### [id number] ####[facility] ([facility])[address] [place], [place] [address]Pxiov gap [Moles/Vol]8 mmol/LNormal7-20UnSt. John of God HospitalComment on above:Performed By: #### [id number] ####[facility] ([facility])[address] [place], [place] [address]Dxrrmjc [Mass/Vol]8.7 mg/dLNormal8.6-10.3UnSt. John of God HospitalComment on above:Performed By: #### [id number] ####[facility] (BEAKER)[address] [place] [address] Chloride [Moles/Vol]104 mmol/AZxehfv10-189ZuavctnxstSt. John of God Hospital Comment on above:Performed By: #### [id number] ####[facility] ([facility])[address] [place], [place] [address]KQ0 [Moles/Vol]29 mmol/NQwzjhg53-87AjdgumuqkmSt. John of God HospitalComment on above:Performed By: #### [id number] ####[facility] ([facility])[address] [place] [address]Vzklehzywd [Mass/Vol]1.01 mg/dL Normal0.70-1.30UnSt. John of God HospitalComment on above:Performed By: #### [id number] ####[facility] ([facility])[address] [place] [address] GLOMERULAR FILTRATION RATE ML/MIN/1.73 SQ M.YBQWKCAPL79.0 mL/min/1.73m*2Normal >60.0UnSt. John of God HospitalComment on above:Result Comment: [facility]???s estimated glomerular filtration rate (eG FR) will [...] group of individuals. Performed By: #### [id number] ####[facility] ([facility])[address] [place], [place] [address]Sslvoqw [Mass/Vol]96 mg/mGVhlumw57-524KfarwfduaeSt. John of God HospitalComment on above:Performed By: #### [id number] ####[facility] ([facility])[address] [facility] [place], [place] [address]Rwowcffpw [Moles/Vol]4.3 mmol/LNormal 3.5-5.1UnSt. John of God HospitalComment on above:Performed By: #### [id number] ####[facility] ([facility])[address]IC[address] [facility] [address]Auikuh [Moles/Vol]137 mmol/TZmpvix802-805PgksirrguuSt. John of God HospitalComment on above:Performed By: #### [id number] ####[facility] ([facility])[address] [place] [address]Omlj nitrogen [Mass/Vol]15 mg/dLNormal7-25UnSt. John of God HospitalComment on above:Performed By: #### [id number] ####[facility] ([facility])[address] [place] [address]YOSW NITROGEN/CREATININE (MASS RATIO) IN SER/PLAS14.9NormalUniversDetwiler Memorial HospitalComment on above: Performed By: #### [id number] ####[facility] ([facility])[address] [place] [address]PMBOMBN, IONIZEDon 03-08-2975VWAOOJP IONIZED (MMOL/L) IN BLOOD1.34 mmol/LHigh1.15-1.33UnSt. John of God HospitalComment on above:Performed By: #### CALCIUM, IONIZED ####[facility] [id number] [place] [address] USACBCon 53-28-1178Bixkthfqtcy distribution width (RBC) [Ratio]12.9 % Stifux10.5-15.0UnSt. John of God HospitalComment on above:Performed By: #### [id number] ####[facility] ([facility])[address] [place] [address] ERYTHROCYTE MEAN CORPUSCULAR HEMOGLOBIN CONCENTRATION (G/DL) BY DHLIPBJRL48.4 g/nMFwfdbc03.0-35.0UnSt. John of God HospitalComment on above:Performed By: #### [id number] ####[facility] ([facility])[address] [place], [place] [address]Buijsxxjjl (Bld) [Volume fraction]30.5 %Low39.0-50.0UnSt. John of God HospitalComment on above:Performed By: #### [id number] ####[facility] ([facility])[address] [place], [place] [address]Npkwihcpja (Bld) [Mass/Vol]10.2 g/dL Low13.0-17.0UnSt. John of God HospitalComment on above:Performed By: #### [id number] ####[facility] ([facility])[address] [place] [address]JQO (RBC) [Entitic mass]30.1 fmBzmcij09.0-33.0UnSt. John of God Hospital Comment on above:Performed By: #### [id number] ####[facility] ([facility])[address] [address]UWE (RBC) [Entitic vol]90.0 wLBbjoki39.0-98.0 [facility] HospitalComment on above:Performed By: #### [id number] ####[facility] ([facility])[address] [place] [address]DRJZUHCXU (10*3/UL) IN BLOOD AUTOMATED [id number] 10*3/cVSudmwg174-059FutelhxuxvSt. John of God HospitalComment on above:Performed By: #### [id number] ####[facility] ([facility])[address] [place] [address]BJK (Bld) [#/Vol]3.39 10*6/uLLow 4.20-5.70UnSt. John of God HospitalComment on above:Performed By: #### [id number] ####[facility] ([facility])[address] [place] [address]ESA (Bld) [#/Vol]14.36 10*3/uLHigh4.00-10.60UnSt. John of God HospitalComment on above:Performed By: #### [id number] ####[facility] ([facility])[address] [address]Lwleixsieeg distribution width (RBC) [Ratio]12.8 %Normal 11.5-15.0UnSt. John of God HospitalComment on above:Order Comment: On arrival to [facility]ITALUPerformed By: #### [id number] ####[facility] ([facility])[address] [address]ZGTESILRLFT MEAN CORPUSCULAR HEMOGLOBIN CONCENTRATION (G/DL) BY UXPHUIROI34.7 g/uOLqpexm08.0-35.0UnSt. John of God HospitalComment on above:Order Comment: On arrival to SICUPerformed By: #### [id number] ####[facility] ([facility])[address] [place] [address] Hematocrit (Bld) [Volume fraction]29.7 %Low39.0-50.0UnSt. John of God HospitalComment on above:Order Comment: On arrival to SICUPerformed By: #### [id number] ####[facility] ([facility])[address] [place] [address] Hemoglobin (Bld) [Mass/Vol]10.3 g/dLLow13.0-17.0UnSt. John of God HospitalComment on above:Order Comment: On arrival to SICUPerformed By: #### [id number] ####[facility] ([facility])[address] [place] [address]FFY (RBC) [Entitic mass]30.2 pnJzfeuw59.0-33.0UnSt. John of God HospitalComment on above:Order Comment: On arrival to SICUPerformed By: #### [id number] ####[facility] ([facility])[address] [place] [address]FSY (RBC) [Entitic vol] 87.1 qHBkudxf48.0-98.0UnSt. John of God HospitalComment on above:Order Comment: On arrival to SICUPerformed By: #### [id number] ####[facility] ([facility])[address] [place] [address]OYLXQLEXM (10*3/UL) IN BLOOD AUTOMATED [id number] 10*3/zKEqickn271-990ZcolvamvirSt. John of God HospitalComment on above:Order Comment: On arrival to SICUPerformed By: #### [id number] ####[facility] ([facility])[address] [place] [address]UFN (Bld) [#/Vol]3.41 10*6/uLLow4.20-5.70UnSt. John of God HospitalComment on above:Order Comment: On arrival to SICUPerformed By: #### [id number] ####[facility] (BEAKER)[address] [place], [place] [address]VKT (Bld) [#/Vol]12.07 10*3/uLHigh 4.00-10.60UnSt. John of God HospitalComment on above:Order Comment: On arrival to [facility]ITALUPerformed By: #### [id number] ####[facility] ([facility])[address] [place], [place] [address]Iptavswnjqh distribution width (RBC) [Ratio]12.8 % Wnbfdk75.5-15.0UnSt. John of God HospitalComment on above:Performed By: #### [id number] ####[facility] ([facility])[address] [place] [address] ERYTHROCYTE MEAN CORPUSCULAR HEMOGLOBIN CONCENTRATION (G/DL) BY FUOHGFABB63.6 g/tTKbgddm90.0-35.0UnSt. John of God HospitalComment on above:Performed By: #### [id number] ####[facility] ([facility])[address] [place], [place] [address]Avexnnmzms (Bld) [Volume fraction]45.4 %Svwnso37.0-50.0UnSt. John of God HospitalComment on above:Performed By: #### [id number] ####[facility] (BEAKER)[address] [place], [place] [address]Uwunigvvgj (Bld) [Mass/Vol]15.7 g/dL Iisnzd36.0-17.0UnSt. John of God HospitalComment on above:Performed By: #### [id number] ####[facility] ([facility])[address] [place], [place] [address]UVI (RBC) [Entitic mass]30.3 ktSprmmf90.0-33.0UnSt. John of God Hospital Comment on above:Performed By: #### [id number] ####[facility] (BEAKER)[address] [place], [place] [address]JUF (RBC) [Entitic vol]87.6 yDMcsptf89.0-98.0 [facility] HospitalComment on above:Performed By: #### [id number] ####[facility] ([facility])[address] [address]GODYQWNES (10*3/UL) IN BLOOD AUTOMATED [id number] 10*3/pTTrwjne984-696KpbgelmdbwSt. John of God HospitalComment on above:Performed By: #### [id number] ####[facility] ([facility])[address] [address]DBH (Bld) [#/Vol]5.18 10*6/uLNormal 4.20-5.70UnSt. John of God HospitalComment on above:Performed By: #### [id number] ####[facility] ([facility])[address] [address]UJX (Bld) [#/Vol]4.36 10*3/uLNormal4.00-10.60UnSt. John of God HospitalComment on above:Performed By: #### [id number] ####[facility] ([facility])[address] [place] [address]RZ-VZPFYLNBfq 12-20-46[address]MMJCOWCZXJENCGCTZ/HEMOGLOBIN TOTAL % IN BLOOD2.0 %NormalUnSt. John of God HospitalComment on above:Performed By: #### [id number] ####[facility] RESP[facility] [id number] [place] [address] USAHemoglobin (Bld) [Mass/Vol]10.8 g/dLNormalUniGreene Memorial HospitalComment on above:Performed By: #### [id number] ####[facility] [id number] [place] [address] USAMETHEMOGLOBIN/100 IN BLOOD0.0 % Normal0.0-1.5UnSt. John of God HospitalComment on above:Performed By: #### [id number] ####[facility] [id number] [place] [address] [place] Oxygen saturation in Blood55.4 %NormalUnSt. John of God HospitalComment on above:Performed By: #### [id number] ####[facility] [id number] [place] [address] USAOXYGENATED HEMOGLOBIN IN BLOOD54.3 %NormalUnSt. John of God HospitalComment on above:Performed By: #### [id number] ####[facility] [id number] [place] [address] USAEXTEM Con 08-16-2024 EXTEM C A1056 hqIaybzn91-63OyoixcbhfcSt. John of God HospitalComment on above: Performed By: #### EXTEM C ####[facility] [id number] [place] [address] [place]EXT[place] C A2062 jxFtmmog29-47EzhonacdyzSt. John of God Hospital Comment on above:Performed By: #### EXTEM C ####[facility]PIR[facility] [id number] [place] [address] [place]EXT[place] C A547 eoYpdhmn93-71RgistszysdSt. John of God HospitalComment on above:Performed By: #### EXTEM C ####[facility] [id number] [place] [address] [place]EXT[place] C CT66 wPgllbn39-73CzlscjprljSt. John of God HospitalComment on above:Performed By: #### EXTEM C ####[facility] [id number] [place] [address] [place] C ML0 %Normal0-6 [facility] HospitalComment on above:Result Comment: PA^Preliminary ResultPerformed By: #### EXTEM C ####[facility] [id number] [place] [address] [place] C A1044 rmTiz68-27OgcnfzpynnSt. John of God HospitalComment on above:Performed By: #### EXTEM C ####[facility] [id number] [place] [address] [place] C A2051 ouBth16-42YyqdvarlvbSt. John of God HospitalComment on above:Performed By: #### EXTEM C ####[facility]PIR[facility] [id number] [place] [address] [place] C A534 mmNormal 33-52UnSt. John of God HospitalComment on above:Performed By: #### EXTEM C ####[facility] RESP[facility] [id number] [place] [address] [place] C CT72 zDtlsgq53-91QfzkphcesxSt. John of God HospitalComment on above:Performed By: #### EXTEM C ####[facility] [id number] [place] [address] [place] C ML0 %Normal0-6UnSt. John of God HospitalComment on above: Result Comment: PA^Preliminary ResultPerformed By: #### EXTEM C ####[facility] [id number] [place] [address] [place] C A1055 mmNormal 45-62UnSt. John of God HospitalComment on above:Performed By: #### EXTEM C ####[facility] [id number] [place] [address] [place] C A2062 xnRrrkkq84-12RanyfzyaxhSt. John of God HospitalComment on above: Performed By: #### EXTEM C ####[facility] RESP[facility] [id number] [place] [address] [place] C A544 gsAxfyxv70-88WzbfkvrvvySt. John of God Hospital Comment on above:Performed By: #### EXTEM C ####[facility] RESP[facility] [id number] [place] [address] [place] C CT54 vSyzjrv04-14UnvdojaoztSt. John of God HospitalComment on above:Performed By: #### EXTEM C ####[facility] [facility] [id number] [place] [address] USAEXTEM C MCF63 ikOqilau42-43 [facility] HospitalComment on above:Performed By: #### EXTEM C ####[facility] RESPIRATORY [id number] [place] [address] USAEXTEM C ML0 % Normal0-6UnSt. John of God HospitalComment on above:Result Comment: PA^Preliminary ResultPerformed By: #### EXTEM C ####[facility]PIRATORY [id number] [place] [address] USAFIBRINOGENon 78-10-3273Cfsbmesbd [Mass/Vol]189 mg/iFYremow565-270AovnvmmlbeSt. John of God HospitalComment on above:Performed By: #### [id number] ####[facility] HOSPITAL LAB (BEAKER)[address] [facility], [place] [address]COHDBR Con 37-46-6987BMRFKQ C A109 mmNormal6-17UnSt. John of God HospitalComment on above:Performed By: #### FIBTEM C ####[facility] RESPIRATORY [id number] [place] [address] USAFIBTEM C A2010 mmNormal6-18 [facility] HospitalComment on above:Performed By: #### FIBTEM C ####[facility] RESPIRATORY [id number] [place] [address] USAFIBTEM C A58 mmNormal5-16UnSt. John of God HospitalComment on above:Performed By: #### FIBTEM C ####[facility] RESPIRATORY [id number] [place] [address] [place] FIBTEM C MCF10 mmNormal6-19UnSt. John of God HospitalComment on above: Performed By: #### FIBTEM C ####[facility] RESPIRAT[facility] [id number] [place] [address] USAFIBTEM C A109 mmNormal6-17UnSt. John of God HospitalComment on above:Performed By: #### FIBTEM C ####[facility] RESPIRAT[facility] [id number] [place] [address] USAFIBTEM C A2010 mmNormal6-18 [facility] HospitalComment on above:Performed By: #### FIBTEM C ####[facility] RESPIRATORY [id number] [place] [address] USAFIBTEM C A58 mmNormal5-16UnSt. John of God HospitalComment on above:Performed By: #### FIBTEM C ####[facility] RESPIRATORY [id number] [place] [address] [place] FIBTEM C MCF10 mmNormal6-19UnSt. John of God HospitalComment on above: Performed By: #### FIBTEM C ####[facility] RESPIRATORY [id number] [place] [address] USAFIBTEM C A1013 mmNormal6-17UnSt. John of God HospitalComment on above:Performed By: #### FIBTEM C ####[facility] RESPIRATORY [id number] [place] [address] USAFIBTEM C A2014 mmNormal6-18 [facility] HospitalComment on above:Performed By: #### FIBTEM C ####[facility] RESPIRATORY [id number] [place] [address] USAFIBTEM C A511 mmNormal5-16UnSt. John of God HospitalComment on above:Performed By: #### FIBTEM C ####[facility] RESPIRATORY [id number] [place] [address] [place] FIBTEM C MCF14 mmNormal6-19UnSt. John of God HospitalComment on above: Performed By: #### FIBTEM C ####[facility] RESPIRATORY [id number] [place] [address] USAHEPTEM Con 64-81-6195JFOEQE C A1052 ksJsjjwd70-33 [facility] HospitalComment on above:Performed By: #### HEPTEM C ####[facility] RESPIRATORY [id number] [place] [address] USAHEPTEM C A2057 xdBxedyf47-65OzfhvlxyffSt. John of God HospitalComment on above:Performed By: #### HEPTEM C ####[facility] RESPIRATORY [id number] [place] [address] USA HEPTEM C A542 fnErdlrd23-67VevltzkwmbSt. John of God HospitalComment on above: Performed By: #### HEPTEM C ####[facility] RESPIRATORY [id number] [place] [address] USAHEPTEM C CT189 mZleusd619-370NxvzzsmgoxSt. John of God HospitalComment on above:Performed By: #### HEPTEM C ####[facility] RESPIRATORY [id number] [place] [address] USAHEPTEM C A1043 utIxf76-57CdnatdjkosSt. John of God HospitalComment on above:Performed By: #### HEPTEM C ####[facility] RESPIRATORY [id number] [place] [address] USAHEPTEM C A2049 mmLow 52-67UnSt. John of God HospitalComment on above:Performed By: #### HEPTEM C ####[facility] RESPIRATORY [id number] [place] [address] USA HEPTEM C A532 hdDqs02-92CqwrrgoswvSt. John of God HospitalComment on above: Performed By: #### HEPTEM C ####[facility] RESPIRATORY [id number] [place] [address] USAHEPTEM C CT316 sHtmx598-824TlkoodbcrvSt. John of God HospitalComment on above:Performed By: #### HEPTEM C ####[facility] RESPIRATORY [id number] [place] [address] USAHEPTEM C A1051 tiItvmim29-29 [facility] HospitalComment on above:Performed By: #### HEPTEM C ####[facility] RESPIRATORY [id number] [place] [address] USAHEPTEM C A2057 eaVjomnj61-01YncytrjxqaSt. John of God HospitalComment on above:Performed By: #### HEPTEM C ####[facility] RESPIRATORY [id number] [place] [address] USA HEPTEM C A541 uyHhmfwj98-23LifxbjtrhmSt. John of God HospitalComment on above: Performed By: #### HEPTEM C ####[facility] RESPIRATORY [id number] [place] [address] USAHEPTEM C CT181 vNsrswc395-362RkayhlvtyuSt. John of God HospitalComment on above:Performed By: #### HEPTEM C ####[facility] RESPIRATORY [id number] [place] [address] USAHEPTEM C MCF58 zeVvhkdh66-27 [facility] HospitalComment on above:Performed By: #### HEPTEM C ####[facility] RESPIRATORY [id number] [place] [address] USAHISTOLOGY - TISSUE EXAMon 97-87-8042KWE AP CASE REPORTNormalUniversDetwiler Memorial HospitalComment on above:Order Comment: Pre-op diagnosis:Multi-vessel coronary artery stenosis [I25.10]Result Comment: Surgical Pathology Case: [id number] Provider: Keith Cherry MD Collected: 08/16/2024 1116Ordering Location: [facility] Main Operating Room Received: 08/16/2024 1159Pathologist: ADIA Ohpecimen: Soft Tissue, Left atrial appendagePerformed By: #### [id number] ####[facility] LAB (BEAKER)[address] [place], [place] [address]UDG AP CLINICAL INFORMATIONNormalUniversDetwiler Memorial HospitalComment on above: Order Comment: Pre-op diagnosis:Multi-vessel coronary artery stenosis [I25.10] Result Comment: Post-Op GddkmxwkaW20.10 - Multi-vessel coronary artery stenosis [ICD-10-CM]Performed By: #### [id number] ####[facility] (BEAKER)[address] [place], [place] [address]XTI AP GROSS DESCRIPTIONA. Soft Tissue.Normal [facility] HospitalComment on above:Order Comment: Pre-op diagnosis:Multi-vessel coronary [...] normal dotson-pink trabeculations and no blood clots. Mask Former sections are submitted in 1 cassette.Dorys Black, Pathologists' Historic Preservationist studentDarand Joe Pathologists' AssistantPerformed By: #### [id number] ####[facility] (BEAKER)[address] [place], [place] [address]XWO AP MICROSCOPIC DESCRIPTION Microscopic examination performed.[facility] Comment on above:Order Comment: Pre-op diagnosis:Multi-vessel coronary artery stenosis [I25.10]Performed By: #### [id number] ####[facility] LAB (BEAKER)[address] [place], [place] [address]OOO AP REPORT FINAL DIAGNOSIS [facility] HospitalComment on above:Order Comment: Pre-op diagnosis:Multi-vessel coronary artery stenosis [I25.10]Result Comment: A. Heart, left atrial appendage, excision: - Benign cardiac tissue. Performed By: #### [id number] ####[facility] (BEAKER)[address] [place], [place] [address]PCrz 08-16-2024 HPH&P reviewed. The patient was examined and there are no changes to the H&P. [facility] CenterINTEM Con 93-69-4328AEGLU C A1052 mm Dxyzmu71-16HyewbtdreiSt. John of God HospitalComment on above:Performed By: #### INTEM C ####[facility] RESPIRATORY [id number] [place] [address] USA INTEM C A2058 laDdmnkr60-76EubpwayrsjSt. John of God HospitalComment on above: Performed By: #### INTEM C ####[facility] RESPIRATORY [id number] [place] [address] USAINTEM C A543 dgJylovw91-57EuarjvzkqpSt. John of God Hospital Comment on above:Performed By: #### INTEM C ####[facility] RESPIRATORY [id number] [place] [address] USAINTEM C CT198 iVfphpj952-613ZdwvkersucSt. John of God HospitalComment on above:Performed By: #### INTEM C ####[facility] RESPIRATORY [id number] [place] [address] USAINTEM C MCF58 mmNormal 55-70UnSt. John of God HospitalComment on above:Performed By: #### INTEM C ####[facility] RESPIRATORY [id number] [place] [address] USAINTEM C ML0 %Normal0-7UnSt. John of God HospitalComment on above:Result Comment: PA^Preliminary ResultPerformed By: #### INTEM C ####[facility] RESPIRATORY [id number] [place] [address] USAINTEM C CT365.0 aVjsb875-540 [facility] HospitalComment on above:Result Comment: PA^Preliminary Result>^Outside Reportable RangePerformed By: #### INTEM C ####[facility] RESPIRATORY [id number] [place] [address] USAINTEM C A1052 qmEnwpjf86-58VlblupolenSt. John of God HospitalComment on above:Performed By: #### INTEM C ####[facility] RESPIRATORY [id number] [place] [address] USA INTEM C A2058 whXalddk12-73EnvowzymhpSt. John of God HospitalComment on above: Performed By: #### INTEM C ####[facility] RESPIRATORY [id number] [place] [address] USAINTEM C A541 rfLxuawg44-24YxzuqejuxsSt. John of God Hospital Comment on above:Performed By: #### INTEM C ####[facility] RESPIRATORY [id number] [place] [address] USAINTEM C CT201 lTwvfhz302-820RjltioxnwtSt. John of God HospitalComment on above:Performed By: #### INTEM C ####[facility] RESPIRATORY [id number] [place] [address] USAINTEM C ML0 %Normal0-7 [facility] HospitalComment on above:Result Comment: PA^Preliminary ResultPerformed By: #### INTEM C ####[facility] RESPIRATORY [id number] [place] [address] USALACTIC ACID WITH 4 HOUR REFLEXon 08-16-2024 LACTATE (MMOL/L) IN SER/PLAS2.3 mmol/LHigh0.5-2.2UnSt. John of God HospitalComment on above:Performed By: #### [id number] ####[facility] ([facility])[address] [place], [place] [address]KTLKXY ACID, PLASMAon 08-16-2024 LACTATE (MMOL/L) IN SER/PLAS3.1 mmol/LCritically high0.5-2.2UnSt. John of God HospitalComment on above:Order Comment: On arrival to SICUPerformed By: #### [id number] ####[facility] ([facility])[address] [place] [address] MAGNESIUMon 80-71-1408Htgwvitjx [Mass/Vol]2.2 mg/dLNormal1.9-2.7UnSt. John of God HospitalComment on above:Performed By: #### [id number] ####[facility] ([facility])[address] [place], [place] [address]Bxlfiurjf [Mass/Vol]2.6 mg/dLNormal1.9-2.7UnSt. John of God HospitalComment on above:Order Comment: On arrival to SICUPerformed By: #### [id number] ####[facility] ([facility])[address] [place], [place] [address]Jskvjqtds [Mass/Vol]1.9 mg/dLNormal 1.9-2.7UnSt. John of God HospitalComment on above:Performed By: #### [id number] ####[facility] ([facility])[address] [place], [place] [address]SUEENSIG on 72-18-6749ZRJSBRQHZazi chest xray completed intraopNormalUniversDetwiler Memorial HospitalNURSNOTEPatient off unit, per pre op staff.NormalUnSt. John of God HospitalOPNOTEon 15-68-4845BTOJDDNcbmdkJickoounxu of [facility] AlicePHOSPHORUSon 37-24-4366Vefhwzgcb [Mass/Vol]3.5 mg/dLNormal2.5-5.0 [facility] HospitalComment on above:Performed By: #### [id number] ####[facility] HOSPITAL LAB (BEAKER)[address] [place], [place] [address]Aumgvbaht [Mass/Vol]4.4 mg/dLNormal2.5-5.0UnSt. John of God HospitalComment on above:Order Comment: On arrival to [facility] JOSEPHerformed By: #### [id number] ####[facility] LAB (BEAKER)[address] [place], [place] [address]Fghnvbmrt [Mass/Vol]3.6 mg/dLNormal2.5-5.0UnSt. John of God HospitalComment on above:Performed By: #### [id number] ####[facility] ([facility])[address] [place] [address] POCT ACTIVATED CLOTTING TIME UNSOLICITED RESULTSon 15-51-6051YYO ACTIVATED CLOTTING LVAQ802 znkPqbiwt76-852NjeveywjylSt. John of God HospitalComment on above:Performed By: #### [id number] ####[facility] LAB (BEAKER)[address] [place], [place] [address]CKI ACTIVATED CLOTTING SCDV380 qggLazd01-766HjzsmujtzeSt. John of God HospitalComment on above:Performed By: #### [id number] ####[facility] LAB (BEAKER)[address] [place], [place] [address]EWE ACTIVATED CLOTTING OKYA445 ptmSztc15-589KvapmlwuntSt. John of God HospitalComment on above: Performed By: #### [id number] ####[facility] HOSPITAL LAB (BEAKER)[address] [place], [place] [address]KWW ACTIVATED CLOTTING NFLG053 vjoXhzq54-787RkesdvwdwgSt. John of God HospitalComment on above:Performed By: #### [id number] ####[facility] (BEAKER)[address] [place], [place] [address]HMD ACTIVATED CLOTTING LZUO933 yckIfak44-485PsbkecjxyvSt. John of God HospitalComment on above: Performed By: #### [id number] ####[facility] HOSPITAL LAB (BEAKER)[address] [place], [place] [address]JOX ACTIVATED CLOTTING OQTU399 gusIkuy72-697QjdkzizzhjPremier Health CenterComment on above:Performed By: #### [id number] ####[facility] LAB (BEAKER)[address] [place], [place] [address]NGP ACTIVATED CLOTTING SEYZ049 djmJbuh29-183TctutpnhrfMercy Health Willard HospitalComment on above: Performed By: #### [id number] ####[facility] (BEAKER)[address] [place], [place] [address]BYK ACTIVATED CLOTTING PWMK569 ppxTtns03-970UnoguztotuMercy Health Willard HospitalComment on above:Performed By: #### [id number] ####[facility] (BEAKER)[address] [place], [place] [address]GLY ACTIVATED CLOTTING GXDL100 iaqKnbn13-356RquqfkmorgMercy Health Willard HospitalComment on above: Performed By: #### [id number] ####[facility] (BEAKER)[address] [place], [place] [address]ZLO ACTIVATED CLOTTING KEKY761 llgXdyehj71-929HuaxewdndaSt. John of God HospitalComment on above:Performed By: #### [id number] ####[facility] (AKER)[address] [place], [place] [address]GAOJ GLUCOSE METER UNSOLICITED RESULTSon 62-05-2829Zsqzker [Mass/Vol]169 mg/xGEhbf72-608DjjrnluwjsMercy Health Willard HospitalComment on above:Order Comment: Waived Testing in the ED is performed under the ED CLIA certificate #[id number].Result Comment: [email or web address] Performed By: #### [id number] ####[facility] (BEAKER)[address] [place], [place] [address]Chuwwtf [Mass/Vol]164 mg/fTXdzx68-236GvbsnalambMercy Health Willard HospitalComment on above:Order Comment: Waived Testing in the ED is performed under the ED CLIA certificate #[id number].Result Comment: [email or web address] Performed By: #### [id number] ####[facility] (BEAKER)[address] [place], [place] [address]Fvhrauk [Mass/Vol]166 mg/gFMdsf86-742RhskrnwlmjSt. John of God HospitalComment on above:Order Comment: Waived Testing in the ED is performed under the ED CLIA certificate #[id number].Result Comment: [email or web address] Performed By: #### [id number] ####[facility] (BEAKER)[address] [place], [place] [address]Ylqqvtq [Mass/Vol]184 mg/jHZlnj41-203AbizvkqzycSt. John of God HospitalComment on above:Order Comment: Waived Testing in the ED is performed under the ED CLIA certificate #[id number].Result Comment: [email or web address] Performed By: #### [id number] ####[facility] (BEAKER)[address] [place], [place] [address]Dmtqbxh [Mass/Vol]172 mg/tXDxtq59-677ZrzmtwewzuSt. John of God HospitalComment on above:Order Comment: Waived Testing in the ED is performed under the ED CLIA certificate #[id number].Result Comment: [email or web address] Performed By: #### [id number] ####[facility] (BEAKER)[address] [place], [place] [address]Outnxug [Mass/Vol]141 mg/tOGnpp10-309NcclbqtpxzMercy Health Willard HospitalComment on above:Order Comment: Waived Testing in the ED is performed under the ED CLIA certificate #[id number].Result Comment: [email or web address] Performed By: #### [id number] ####[facility] (BEAKER)[address] [place], [place] [address]Ccvksfl [Mass/Vol]162 mg/xIFvey82-929JkqfanyresSt. John of God HospitalComment on above:Order Comment: Waived Testing in the ED is performed under the ED CLIA certificate #[id number].Result Comment: [email or web address] Performed By: #### [id number] ####[facility] (BEAKER)[address] [place], [place] [address]Uhsfknv [Mass/Vol]102 mg/hBAtbkef57-956WoeeprruisSt. John of God HospitalComment on above:Order Comment: Waived Testing in the ED is performed under the ED CLIA certificate #[id number].Result Comment: [email or web address] Performed By: #### [id number] ####[facility] ([facility])[address] [place] [address]OKRB PERFUSION PANEL UNSOLICITED RESULTSon 84-59-0786FE0 [Moles/Vol]25.0 mmol/HTjrdwi86.0-29.0UnSt. John of God HospitalComment on above:Performed By: #### [id number] ####[facility] ([facility])[address] [place] [address]Zaahjtz [Mass/Vol]176 mg/xIKlnu91-833PysxbvhewrSt. John of God HospitalComment on above:Performed By: #### [id number] ####[facility] ([facility])[address] [place] [address]GEC9 (Bld) [Moles/Vol] 23.7 mmol/LTefvty68.0-28.0UnSt. John of God HospitalComment on above: Performed By: #### [id number] ####[facility] ([facility])[address] [place] [address]Tejrmbddly (Bld) [Volume fraction]29 %Pwb82-26YoeexwrhsjSt. John of God HospitalComment on above:Performed By: #### [id number] ####[facility] ([facility])[address] [place] [address]Oeohgqxuhr (Bld) [Mass/Vol]9.9 g/dLLow12.0-17.0UnSt. John of God HospitalComment on above:Performed By: #### [id number] ####[facility] ([facility])[address] [place] [address]CKLG BASE EXCESS-1.0 mmol/LNormal-2.0-3.0UnSt. John of God HospitalComment on above:Performed By: #### [id number] ####[facility] ([facility])[address] [place] [address]XNCM IONIZED CALCIUM1.34 mmol/L High1.12-1.32UnSt. John of God HospitalComment on above:Performed By: #### [id number] ####[facility] ([facility])[address] [place] [address] POCT UBT527.8 rcLiPjs56.0-51.0UnSt. John of God HospitalComment on above:Performed By: #### [id number] ####[facility] ([facility])[address] [place] [address]DDLG PH7.73Rigf8.31-7.41UnSt. John of God Hospital Comment on above:Performed By: #### [id number] ####[facility] ([facility])[address] [place], [place] [address]AWRY PO269 udYvSai47-006WvuppnzeqgSt. John of God HospitalComment on above:Performed By: #### [id number] ####[facility] ([facility])[address] [place], [place] [address]MQAQ SO294 %Ehj35-29NbhljeinqgSt. John of God HospitalComment on above:Performed By: #### [id number] ####[facility] ([facility])[address] [place], [place] [address]Czdsqeass [Moles/Vol]3.9 mmol/LNormal3.5-4.9UnSt. John of God HospitalComment on above:Performed By: #### [id number] ####[facility] ([facility])[address] [place], [place] [address]Kjevbg [Moles/Vol]139 mmol/HNkiinj546.0-146.0UnSt. John of God HospitalComment on above:Performed By: #### [id number] ####[facility] ([facility])[address] [place], [place] [address]LT0 [Moles/Vol]24.0 mmol/LNormal 21.0-29.0UnSt. John of God HospitalComment on above:Performed By: #### [id number] ####[facility] ([facility])[address] [place], [place] [address]Onyeuht [Mass/Vol]192 mg/hABawn15-986PszekgwzbaSt. John of God HospitalComment on above:Performed By: #### [id number] ####[facility] (BEAKER)[address] [address]JDA9 (Bld) [Moles/Vol]23.4 mmol/WHxuxvw12.0-28.0UnSt. John of God HospitalComment on above:Performed By: #### [id number] ####[facility] (BEAKER)[address] [address]Grikebsuqe (Bld) [Volume fraction]28 %Adl05-34QqhvpugomwSt. John of God HospitalComment on above: Performed By: #### [id number] ####[facility] (BEAKER)[address] [address]Xgsmteqiwq (Bld) [Mass/Vol]9.5 g/dLLow12.0-17.0UnSt. John of God HospitalComment on above:Performed By: #### [id number] ####[facility] (BEAKER)[address] [address]ZESQ BASE EXCESS0.0 mmol/LNormal-2.0-3.0UnSt. John of God HospitalComment on above: Performed By: #### [id number] ####[facility] (BEAKER)[address] [address]CRCN IONIZED CALCIUM1.24 mmol/LNormal1.12-1.32UnSt. John of God HospitalComment on above:Performed By: #### [id number] ####[facility] HOSPITAL LAB (BEAKER)[address] [address]XVOT NQE358.3 mmHgLow 41.0-51.0UnSt. John of God HospitalComment on above:Performed By: #### [id number] ####[facility] (BEAKER)[address] [address]KSKF PH 7.92Vydl7.31-7.41UnSt. John of God HospitalComment on above:Performed By: #### [id number] ####[facility] (BEAKER)[address] [address]GLHF [address] baCcJmr15-684XdugnxldupSt. John of God HospitalComment on above:Performed By: #### [id number] ####[facility] ([facility])[address] [address]HZCT SO296 %Xeszpk91-28TynmtnsbkySt. John of God Hospital Comment on above:Performed By: #### [id number] ####[facility] ([facility])[address] [place] [address]Qgwrcyson [Moles/Vol]4.5 mmol/LNormal3.5-4.9 [facility] HospitalComment on above:Performed By: #### [id number] ####[facility] ([facility])[address] [place] [address]Hgaltj [Moles/Vol]137 mmol/YSlz770.0-146.0UnSt. John of God HospitalComment on above:Performed By: #### [id number] ####[facility] ([facility])[address] [place] [address]XV3 [Moles/Vol]26.0 mmol/CQlippq64.0-29.0UnSt. John of God HospitalComment on above:Performed By: #### [id number] ####[facility] ([facility]ER)[address], [place] [address]Xuxlgpg [Mass/Vol]177 mg/dLHigh 70-105UnSt. John of God HospitalComment on above:Performed By: #### [id number] ####[facility] ([facility]ER)[address] [place] [address]AYD1 (Bld) [Moles/Vol]24.9 mmol/RInglvr32.0-28.0UnSt. John of God Hospital Comment on above:Performed By: #### [id number] ####[facility] ([facility])[address], [place] [address]Khirinfdmj (Bld) [Volume fraction]26 %Fiq66-85 [facility] HospitalComment on above:Performed By: #### [id number] ####[facility] ([facility])[address], [place] [address]Afuvforwpn (Bld) [Mass/Vol]8.8 g/dLLow12.0-17.0UnSt. John of God HospitalComment on above:Performed By: #### [id number] ####[facility] ([facility])[address] [place] [address]FUFO BASE EXCESS2.0 mmol/LNormal-2.0-3.0UnSt. John of God HospitalComment on above:Performed By: #### [id number] ####[facility] ([facility])[address] [place] [address]TWWA IONIZED CALCIUM1.30 mmol/LNormal 1.12-1.32UnSt. John of God HospitalComment on above:Performed By: #### [id number] ####[facility] ([facility])[address] [place] [address]WPLR XTF524.6 vsTnJgh10.0-51.0UnSt. John of God HospitalComment on above: Performed By: #### [id number] ####[facility] ([facility])[address] [place] [address]DQJD PH7.66Khjc4.31-7.41UnSt. John of God Hospital Comment on above:Performed By: #### [id number] ####[facility] ([facility])[address] [place] [address]FUER [address] byCtKzwqss47-737MgohijrencSt. John of God HospitalComment on above:Performed By: #### [id number] ####[facility] ([facility])[address] [place] [address]SITC SO297 %Eetysm99-07BvrixspdqeSt. John of God HospitalComment on above:Performed By: #### [id number] ####[facility] ([facility])[address], [place] [address]Xutkuoaag [Moles/Vol]5.4 mmol/LHigh3.5-4.9UnSt. John of God HospitalComment on above:Performed By: #### [id number] ####[facility] ([facility])[address], [place] [address]Vhjmwi [Moles/Vol]135 mmol/NGpp403.0-146.0UnSt. John of God HospitalComment on above:Performed By: #### [id number] ####[facility] ([facility])[address] [address]RN7 [Moles/Vol]29.0 mmol/LNormal 21.0-29.0UnSt. John of God HospitalComment on above:Performed By: #### [id number] ####[facility] ([facility])[address] [place] [address]Ozzyjdq [Mass/Vol]151 mg/lOSkrw27-879TwhduhqarzSt. John of God HospitalComment on above:Performed By: #### [id number] ####[facility] ([facility])[address] [place] [address]YRX3 (Bld) [Moles/Vol]28.7 mmol/LHigh23.0-28.0UnSt. John of God HospitalComment on above:Performed By: #### [id number] ####[facility] ([facility])[address] [place] [address]Luhwnunffp (Bld) [Volume fraction]27 %Bhv81-08EtethfifpxSt. John of God HospitalComment on above: Performed By: #### [id number] ####[facility] ([facility])[address] [place] [address]Lnvldefbfa (Bld) [Mass/Vol]9.2 g/dLLow12.0-17.0UnSt. John of God HospitalComment on above:Performed By: #### [id number] ####[facility] ([facility])[address] [place] [address]YVTD BASE EXCESS9.0 mmol/LHigh-2.0-3.0UnSt. John of God HospitalComment on above:Performed By: #### [id number] ####[facility] ([facility])[address] [place] [address]KAHG IONIZED CALCIUM0.99 mmol/LLow1.12-1.32UnSt. John of God HospitalComment on above:Performed By: #### [id number] ####[facility] ([facility])[address] [place] [address]XRVX HZA458.1 vgZfNvu96.0-51.0 [facility] HospitalComment on above:Performed By: #### [id number] ####[facility] ([facility])[address] [place] [address]KINV PH7.68High 7.31-7.41UnSt. John of God HospitalComment on above:Performed By: #### [id number] ####[facility] ([facility])[address] [place] [address]PXYV [id number] oxYhBvum86-958ZrnawrgmvqSt. John of God HospitalComment on above: Performed By: #### [id number] ####[facility] ([facility])[address] [place] [address]SXYP PQ4423 %Plji26-49ZxihvksegmSt. John of God Hospital Comment on above:Performed By: #### [id number] ####[facility] ([facility])[address], [place] [address]Ykcfdjfbj [Moles/Vol]6.1 mmol/LCritically high 3.5-4.9UnSt. John of God HospitalComment on above:Performed By: #### [id number] ####[facility] ([facility])[address], [place] [address]Rackbi [Moles/Vol]133 mmol/LFoj653.0-146.0UnSt. John of God HospitalComment on above:Performed By: #### [id number] ####[facility] ([facility])[address], [place] [address]LL4 [Moles/Vol]26.0 mmol/HMeeudh66.0-29.0UnSt. John of God HospitalComment on above:Performed By: #### [id number] ####[facility] ([facility])[address], [place] [address]Udqzuam [Mass/Vol]157 mg/dLHigh 70-105UnSt. John of God HospitalComment on above:Performed By: #### [id number] ####[facility] ([facility])[address] [address]GBC4 (Bld) [Moles/Vol]25.4 mmol/UZkekby62.0-28.0UnSt. John of God Hospital Comment on above:Performed By: #### [id number] ####[facility] ([facility])[address] [address]Wnoiddmkza (Bld) [Volume fraction]34 %Yfd70-32 [facility] HospitalComment on above:Performed By: #### [id number] ####[facility] ([facility])[address] [address]Lgehwemsjp (Bld) [Mass/Vol]11.6 g/dLLow12.0-17.0UnSt. John of God HospitalComment on above:Performed By: #### [id number] ####[facility] ([facility])[address] [place] [address]NQTH BASE EXCESS3.0 mmol/LNormal-2.0-3.0UnSt. John of God HospitalComment on above:Performed By: #### [id number] ####[facility] ([facility])[address] [address]XVQJ IONIZED CALCIUM1.09 mmol/LLow 1.12-1.32UnSt. John of God HospitalComment on above:Performed By: #### [id number] ####[facility] ([facility])[address] [address]KOYQ TGN457.6 vgFfZxp95.0-51.0UnSt. John of God HospitalComment on above: Performed By: #### [id number] ####[facility] ([facility])[address] [address]QBWC PH7.93Eebx8.31-7.41UnSt. John of God Hospital Comment on above:Performed By: #### [id number] ####[facility] ([facility])[address] [place] [address]JPOF [id number] trVbEukk30-147VkgcflvkpsSt. John of God HospitalComment on above:Performed By: #### [id number] ####[facility] ([facility])[address] [address]RRBE YB8150 %Xxzp54-53WshariqburSt. John of God HospitalComment on above:Performed By: #### [id number] ####[facility] ([facility])[address] [place] [address]Unlsbenhz [Moles/Vol]6.5 mmol/LCritically high3.5-4.9UnSt. John of God HospitalComment on above: Performed By: #### [id number] ####[facility] ([facility])[address] [place] [address]Jagist [Moles/Vol]132 mmol/CWca262.0-146.0UnSt. John of God HospitalComment on above:Performed By: #### [id number] ####[facility] ([facility])[address] [place] [address]SX6 [Moles/Vol]27.0 mmol/XWetewa51.0-29.0UnSt. John of God HospitalComment on above: Performed By: #### [id number] ####[facility] ([facility])[address] [place] [address]Vtyivkv [Mass/Vol]155 mg/lXNuil36-472ZrxqhkqsshSt. John of God HospitalComment on above:Performed By: #### [id number] ####[facility] ([facility])[address] [place] [address]IKV0 (Bld) [Moles/Vol]26.0 mmol/L Rjsuif08.0-28.0UnSt. John of God HospitalComment on above:Performed By: #### [id number] ####[facility] ([facility])[address] [place] [address] Hematocrit (Bld) [Volume fraction]33 %Xib98-51AbytgaexlcSt. John of God HospitalComment on above:Performed By: #### [id number] ####[facility] ([facility])[address] [address]Nprzvesfqt (Bld) [Mass/Vol]11.2 g/dL Low12.0-17.0UnSt. John of God HospitalComment on above:Performed By: #### [id number] ####[facility] ([facility])[address] [place] [address] POCT BASE EXCESS2.0 mmol/LNormal-2.0-3.0UnSt. John of God Hospital Comment on above:Performed By: #### [id number] ####[facility] ([facility])[address] [place] [address]TGFS IONIZED CALCIUM0.96 mmol/LLow1.12-1.32 [facility] HospitalComment on above:Performed By: #### [id number] ####[facility] ([facility])[address] [place] [address]KRXU JED153.7 pqFiFxs22.0-51.0UnSt. John of God HospitalComment on above:Performed By: #### [id number] ####[facility] ([facility])[address] [address]GETU PH7.67Coou7.31-7.41UnSt. John of God HospitalComment on above:Performed By: #### [id number] ####[facility] ([facility])[address] [address]XOBD [id number] xnHhHngl45-770ZmimmcqhtzSt. John of God Hospital Comment on above:Performed By: #### [id number] ####[facility] ([facility])[address] [place] [address]LXZA XD4776 %Ytpm80-52WyqdknwnzpSt. John of God HospitalComment on above:Performed By: #### [id number] ####[facility] ([facility])[address], [place] [address]Btbxhbuew [Moles/Vol]6.7 mmol/L Critically high3.5-4.9UnSt. John of God HospitalComment on above: Performed By: #### [id number] ####[facility] ([facility])[address] [place] [address]Ertrqx [Moles/Vol]131 mmol/GVsz773.0-146.0UnSt. John of God HospitalComment on above:Performed By: #### [id number] ####[facility] ([facility])[address] [place] [address]WE5 [Moles/Vol]24.0 mmol/JEkkvyf78.0-29.0UnSt. John of God HospitalComment on above: Performed By: #### [id number] ####[facility] ([facility])[address], [place] [address]Jdcvoyj [Mass/Vol]147 mg/oRCqry83-741BcgmbayoxtSt. John of God HospitalComment on above:Performed By: #### [id number] ####[facility] ([facility])[address], [place] [address]YMT9 (Bld) [Moles/Vol]23.5 mmol/L Mbahvp35.0-28.0UnSt. John of God HospitalComment on above:Performed By: #### [id number] ####[facility] ([facility])[address] [place] [address] Hematocrit (Bld) [Volume fraction]32 %Mfq44-97VaotlmyzqpSt. John of God HospitalComment on above:Performed By: #### [id number] ####[facility] ([facility])[address], [place] [address]Usmyaszkhv (Bld) [Mass/Vol]10.9 g/dL Low12.0-17.0UnSt. John of God HospitalComment on above:Performed By: #### [id number] ####[facility] ([facility])[address] [place] [address] POCT BASE EXCESS0.0 mmol/LNormal-2.0-3.0UnSt. John of God Hospital Comment on above:Performed By: #### [id number] ####[facility] ([facility])[address], [place] [address]EQSY IONIZED CALCIUM0.94 mmol/LLow1.12-1.32 [facility] HospitalComment on above:Performed By: #### [id number] ####[facility] ([facility])[address] [address]UIMC ZBD756.0 qmAnCiq29.0-51.0UnSt. John of God HospitalComment on above:Performed By: #### [id number] ####[facility] ([facility])[address] [address]GPCX PH7.64Xaav0.31-7.41UnSt. John of God HospitalComment on above:Performed By: #### [id number] ####[facility] ([facility])[address] [address]PQYE [place] lzEnOyfe46-946GpxvibrsloSt. John of God Hospital Comment on above:Performed By: #### [id number] ####[facility] ([facility])[address] [address]BBPX DT3939 %Usjd50-74NckkufgigoSt. John of God HospitalComment on above:Performed By: #### [id number] ####[facility] ([facility])[address] [address]Mdkrhxgtx [Moles/Vol]6.1 mmol/L Critically high3.5-4.9UnSt. John of God HospitalComment on above: Performed By: #### [id number] ####[facility] ([facility])[address] [address]Lqlbtd [Moles/Vol]131 mmol/QJur762.0-146.0UnSt. John of God HospitalComment on above:Performed By: #### [id number] ####[facility] ([facility])[address] [address]RP8 [Moles/Vol]25.0 mmol/CLyxzoc90.0-29.0UnSt. John of God HospitalComment on above: Performed By: #### [id number] ####[facility] ([facility])[address] [place] [address]Ltnranz [Mass/Vol]165 mg/aAJkiy98-475PpjkxuksgaSt. John of God HospitalComment on above:Performed By: #### [id number] ####[facility] ([facility])[address] [address]TGY9 (Bld) [Moles/Vol]24.1 mmol/L Ykrqao23.0-28.0UnSt. John of God HospitalComment on above:Performed By: #### [id number] ####[facility] ([facility])[address] [place] [address] Hematocrit (Bld) [Volume fraction]43 %Vmiifv46-21KlbqbhmwsaSt. John of God HospitalComment on above:Performed By: #### [id number] ####[facility] ([facility])[address] [place] [address]Tmipkyzryf (Bld) [Mass/Vol]14.6 g/dL Smjnyq20.0-17.0UnSt. John of God HospitalComment on above:Performed By: #### [id number] ####[facility] ([facility])[address] [place] [address] POCT BASE EXCESS-1.0 mmol/LNormal-2.0-3.0[facility] Comment on above:Performed By: #### [id number] ####[facility] ([facility])[address] [address]MIEI IONIZED CALCIUM1.16 mmol/LNormal1.12-1.32 [facility] HospitalComment on above:Performed By: #### [id number] ####[facility] ([facility])[address] [address]MXUF RYV087.3 alCnPlv67.0-51.0UnSt. John of God HospitalComment on above:Performed By: #### [id number] ####[facility] ([facility])[address] [address]DFZG PH7.77Otcqbd2.31-7.41UnSt. John of God HospitalComment on above:Performed By: #### [id number] ####[facility] ([facility])[address], [place] [address]XNAW PO260 aaXtAjj88-729NexxfjoimtSt. John of God Hospital Comment on above:Performed By: #### [id number] ####[facility] ([facility])[address], [place] [address]NSWA SO290 %Unf89-27AygmrqxmfoSt. John of God HospitalComment on above:Performed By: #### [id number] ####[facility] ([facility])[address], [place] [address]Bqutbohih [Moles/Vol]5.2 mmol/LHigh 3.5-4.9UnSt. John of God HospitalComment on above:Performed By: #### [id number] ####[facility] ([facility])[address], [place] [address]Grejmt [Moles/Vol]137 mmol/JGnp763.0-146.0UnSt. John of God HospitalComment on above:Performed By: #### [id number] ####[facility] ([facility])[address], [place] [address]VG1 [Moles/Vol]24.0 mmol/UVbazug33.0-29.0UnSt. John of God HospitalComment on above:Performed By: #### [id number] ####[facility] ([facility])[address], [place] [address]Evxflxv [Mass/Vol]132 mg/dLHigh 70-105UnSt. John of God HospitalComment on above:Performed By: #### [id number] ####[facility] ([facility])[address], [place] [address]XQP1 (Bld) [Moles/Vol]23.1 mmol/ZIfuwaa79.0-28.0UnSt. John of God Hospital Comment on above:Performed By: #### [id number] ####[facility] ([facility])[address], [place] [address]Mnmxwokbvi (Bld) [Volume fraction]42 %Lkjlsz87-11 [facility] HospitalComment on above:Performed By: #### [id number] ####[facility] ([facility])[address] [address]Wvrqcjcvwl (Bld) [Mass/Vol]14.3 g/xXSynhda37.0-17.0UnSt. John of God HospitalComment on above:Performed By: #### [id number] ####[facility] ([facility])[address] [address]MUWQ BASE EXCESS-2.0 mmol/LNormal-2.0-3.0UnSt. John of God HospitalComment on above:Performed By: #### [id number] ####[facility] ([facility])[address] [address]LRFC IONIZED CALCIUM1.15 mmol/L Normal1.12-1.32UnSt. John of God HospitalComment on above:Performed By: #### [id number] ####[facility] ([facility])[address] [address] POCT NCS921.9 wcMcCcn06.0-51.0UnSt. John of God HospitalComment on above:Performed By: #### [id number] ####[facility] ([facility])[address] [address]XMCC PH7.06Kgwmjy6.31-7.41UnSt. [facility] of God Hospital Comment on above:Performed By: #### [id number] ####[facility] ([facility])[address] [address]ZWXL [address]282 fiYhCqzpiw44-319XoeiawvargSt. John of God HospitalComment on above:Performed By: #### [id number] ####[facility] ([facility])[address] [address]QSLD SO296 %Tnecml04-00TktmjlorduSt. John of God HospitalComment on above:Performed By: #### [id number] ####[facility] ([facility])[address] [address]Nsgjyxzhw [Moles/Vol]4.7 mmol/LNormal3.5-4.9UnSt. John of God HospitalComment on above:Performed By: #### [id number] ####[facility] ([facility])[address] [place] [address]Tctscp [Moles/Vol]138 mmol/IUmxmnd400.0-146.0UnSt. John of God HospitalComment on above:Performed By: #### [id number] ####[facility] ([facility])[address] [place] [address]VA2 [Moles/Vol]26.0 mmol/LNormal 21.0-29.0UnSt. John of God HospitalComment on above:Performed By: #### [id number] ####[facility] ([facility])[address], [place] [address]Kkvxmur [Mass/Vol]114 mg/mTYfrz78-398JgiuuzwuaxSt. John of God HospitalComment on above:Performed By: #### [id number] ####[facility] ([facility])[address] [place] [address]LQJ6 (Bld) [Moles/Vol]24.7 mmol/SIojzac19.0-28.0UnSt. John of God HospitalComment on above:Performed By: #### [id number] ####[facility] ([facility])[address] [place] [address]Fxxybwhsku (Bld) [Volume fraction]44 %Dtjmqd96-84QirpxhqqjeSt. John of God HospitalComment on above: Performed By: #### [id number] ####[facility] ([facility])[address], [place] [address]Vmqctwaavt (Bld) [Mass/Vol]15.0 g/pIGmjwne65.0-17.0UnSt. John of God HospitalComment on above:Performed By: #### [id number] ####[facility] ([facility])[address], [place] [address]LYGJ BASE EXCESS0.0 mmol/LNormal-2.0-3.0UnSt. John of God HospitalComment on above: Performed By: #### [id number] ####[facility] ([facility])[address], [place] [address]DVGO IONIZED CALCIUM1.19 mmol/LNormal1.12-1.32UnSt. John of God HospitalComment on above:Performed By: #### [id number] ####[facility] ([facility])[address], [place] [address]HBUL SWD799.9 mmHgLow 41.0-51.0UnSt. John of God HospitalComment on above:Performed By: #### [id number] ####[facility] ([facility])[address], [place] [address]WAEB PH 7.84Cldomo2.31-7.41UnSt. John of God HospitalComment on above:Performed By: #### [id number] ####[facility] ([facility])[address], [place] [address]TNDZ [id number] xkXdFhrr68-659FmrunhbvssSt. John of God HospitalComment on above:Performed By: #### [id number] ####[facility] ([facility])[address], [place] [address]CAJE SO298 %Etktzg98-21NkdbvbkqinSt. John of God Hospital Comment on above:Performed By: #### [id number] ####[facility] ([facility])[address], [place] [address]Xweezrnlj [Moles/Vol]4.4 mmol/LNormal3.5-4.9 [facility] HospitalComment on above:Performed By: #### [id number] ####[facility] ([facility])[address], [place] [address]Ockpnx [Moles/Vol]137 mmol/JUuy928.0-146.0UnSt. John of God HospitalComment on above:Performed By: #### [id number] ####[facility] ([facility])[address], [place] [address]SDBVPKAPU, WHOLE BLOODon 35-25-8768Jjcvmzxxx [Moles/Vol]4.5 mmol/LNormal3.5-5.1UnSt. John of God HospitalComment on above:Performed By: #### POTASSIUM, WHOLE BLOOD ####[facility] RESP[facility]AT[facility] [address]ORJ[address] [place] [address] USAPROTIME-INRon 31-30-2948MDR IN PPP BY COAGULATION ASSAY 1.65Mbhn5.90-1.10UnSt. John of God HospitalComment on above:Result Comment: [facility] RECOMMENDED INR FOR WARFARIN THERAPY CONDITION INRPROPHYLAXIS OF VENOUS THROMBOSIS 2-3(HIGH-RISK SURGERY)TREATMENT OF VENOUS THROMBOSIS 2-3TREATMENT OF PULMONARY EMBOLISM 2-3PREVENTION OF SYSTEMIC EMBOLISM: 2-3 ACUTE MYOCARDIAL INFARCTION TISSUE HEART VALVES VALVULAR HEART DISEASE ATRIAL FIBRILLATION RECURRENT SYSTEMIC EMBOLISMMECHANICAL HEART VALVE 2.5-3.5 FROM: ORAL ANTICOAGULANTS. MECHANISM OF ACTION, CLINICAL EFFECTIVENESS, AND OPTIMAL THERAPE UTIC RANGE. CHEST 1995;108:231S-246S.Performed By: #### [id number] ####[facility] ([employer])[address], [place] [address]KGPWVTGVBLH TIME (PT) IN PPP BY COAGULATION ASSAY15.7 CnfueuuBrup33.3-14.8UnSt. John of God HospitalComment on above:Performed By: #### [id number] ####[facility] ([employer])[address] [place] [address]FBD IN PPP BY COAGULATION ASSAY1.45 High0.90-1.10UnSt. John of God HospitalComment on above:Order Comment: On arrival to [facility] Comment: [facility] RECOMMENDED INR FOR WARFARIN THERAPY CONDITION INRPROPHYLAXIS OF VENOUS THROMBOSIS 2-3(HIGH-RISK SURGERY)TREATMENT OF VENOUS THROMBOSIS 2-3TREATMENT OF PULMONARY EMBOLISM 2-3PREVENTION OF SYSTEMIC EMBOLISM: 2-3 ACUTE MYOCARDIAL INFARCTION TISSUE HEART VALVES VALVULAR HEART DISEASE ATRIAL FIBRILLATION RECURRENT SYSTEMIC EMBOLISMMECHANICAL HEART VALVE 2.5-3.5 FROM: ORAL ANTICOAGULANTS. MECHANISM OF ACTION, CLINICAL EFFECTIVENESS, AND OPTIMAL THERAPE UTIC RANGE. CHEST 1995;108:231S-246S.Performed By: #### [id number] ####[facility] ([employer])[address] [place], [place] [address]XBJFDQAQLGE TIME (PT) IN PPP BY COAGULATION ASSAY17.5 KtecysxFfmq19.3-14.8UnSt. John of God HospitalComment on above:Order Comment: [facility]: #### [id number] ####[facility] ([employer])[address] [place], [place] [address]MTP IN PPP BY COAGULATION ASSAY0.34Masvqk0.90-1.10UnSt. John of God Hospital Comment on above:Result Comment: [facility] RECOMMENDED [...] THERAPE UTIC RANGE. CHEST 1995;108:231S-246S.Performed By: #### [id number] ####[facility] ([facility])[address] [place], [place] [address]VDJADHVKVOX TIME (PT) IN PPP BY COAGULATION ASSAY13.0 BfivichRddprt05.3-14.8UnSt. John of God HospitalComment on above:Performed By: #### [id number] ####[facility] ([facility])[address] [place], [place] [address]LPMBOM, WHOLE BLOODon 08-16-2024 SODIUM, WHOLE [id number]. John of God HospitalComment on above:Performed By: #### SODIUM, WHOLE BLOOD ####[facility] [id number] [place] [address] [id number] [facility]30NormalUniversity [facility]30NormalUniversity [facility]30NormalUniversity [facility] CenterANESon [id number] of [facility]edo Medical CenterANTI-XA (HEPARIN LEVEL)on [id number] UNFRACTIONATED (U/ML) IN PPP BY CHROMOGENIC METHOD0.64 IU/mL Normal0.3-0.7UnSt. John of God HospitalComment on above:Order Comment: Check anti-Xa level every 6 hours while on heparin infusion, or per protocol. Result Comment: Rivaroxaban and Apixaban will interfere with the anti Xa assay used to monitor UFH and LMWH.Performed By: #### [id number] ####[facility] ([facility])[address] [place], [place] [address]EKXPRCS UNFRACTIONATED (U/ML) IN PPP BY CHROMOGENIC METHOD0.82 IU/mLHigh0.3-0.7UnSt. John of God Hospital Comment on above:Order Comment: Check anti-Xa level every 6 hours while on heparin infusion, or per protocol.Result Comment: Rivaroxaban and Apixaban will interfere with the anti Xa assay used to monitor UFH and LMWH.Performed By: #### [id number] ####[facility] ([facility])[address] [place], [place] [address]CXCKMUA UNFRACTIONATED (U/ML) IN PPP BY CHROMOGENIC METHOD0.68 IU/mLNormal0.3-0.7 [facility] HospitalComment on above:Result Comment: Rivaroxaban and Apixaban will interfere with the anti Xa assay used to monitor UFH and LMWH. Performed By: #### [id number] ####[facility] ([facility])[address] [place], [place] [id number] UNFRACTIONATED (U/ML) IN PPP BY CHROMOGENIC METHOD 0.71 IU/mLHigh0.3-0.7UnSt. John of God HospitalComment on above:Order Comment: Check anti-Xa level every 6 hours while on heparin infusion, or per protocol.Result Comment: Rivaroxaban and Apixaban will interfere with the anti Xa assay used to monitor UFH and LMWH.Performed By: #### [id number] ####[facility] ([facility])[address], [place] [address]PNZtn 08-15-2024 Erythrocyte distribution width (RBC) [Ratio]13.1 %Lhedld27.5-15.0UnSt. John of God HospitalComment on above:Performed By: #### [id number] ####[facility] ([facility])[address], [place] [address]XSFXVPJOYFW MEAN CORPUSCULAR HEMOGLOBIN CONCENTRATION (G/DL) BY XHNWPFZPV93.3 g/kYHjrijt90.0-35.0 [facility] HospitalComment on above:Performed By: #### [id number] ####[facility] ([facility])[address], [place] [address]Fxkorcugca (Bld) [Volume fraction]46.8 %Kvxtbr76.0-50.0UnSt. John of God Hospital Comment on above:Performed By: #### [id number] ####[facility] ([facility])[address] [place] [address]Hotzmdcops (Bld) [Mass/Vol]15.6 g/zUCuxvdp45.0-17.0 [facility] HospitalComment on above:Performed By: #### [id number] ####[facility] ([facility])[address] [place] [address]QHD (RBC) [Entitic mass]29.8 xrWzaliq82.0-33.0UnSt. John of God HospitalComment on above:Performed By: #### [id number] ####[facility] ([facility])[address] [place] [address]JRI (RBC) [Entitic vol]89.5 qUMdwjdg70.0-98.0UnSt. John of God HospitalComment on above:Performed By: #### [id number] ####[facility] ([facility])[address] [place] [address]GAYQYHNFB (10*3/UL) IN BLOOD AUTOMATED QDQSE267 10*3/bVHfguoh391-759QwgdnruoebSt. John of God Hospital Comment on above:Performed By: #### [id number] ####[facility] ([facility])[address] [place] [address]CQB (Bld) [#/Vol]5.23 10*6/uLNormal4.20-5.70 [facility] HospitalComment on above:Performed By: #### [id number] ####[facility] ([facility])[address] [place] [address]LSF (Bld) [#/Vol]6.03 10*3/uLNormal4.00-10.60UnSt. John of God HospitalComment on above:Performed By: #### [id number] ####[facility] ([facility])[address] [address]FO ABDOMEN PELVIS W IV CONTRASTon 88-91-3443BV ABDOMEN PELVIS W IV CONTRASTNormalUniversity University Hospitals Portage Medical CenterCT CHEST W IV CONTRASTon 44-52-8461KC CHEST W IV CONTRASTNormalUniversity [facility] Documentationon 82-07-0391XqixnxsklnrjxZofgrsWflskotyqv of [facility] PROTIME-INRon 47-85-3309BCM IN PPP BY COAGULATION ASSAY1.56Bsdazk5.90-1.10 [facility] HospitalComment on above:Result Comment: ACCCP RECOMMENDED INR FOR WARFARIN THERAPY CONDITION INRPROPHYLAXIS OF VENOUS THROMBOSIS 2-3(HIGH-RISK SURGERY)TREATMENT OF VENOUS THROMBOSIS 2-3TREATMENT OF PULMONARY EMBOLISM 2-3PREVENTION OF SYSTEMIC EMBOLISM: 2-3 ACUTE MYOCARDIAL INFARCTION TISSUE HEART VALVES VALVULAR HEART DISEASE ATRIAL FIBRILLATION RECURRENT SYSTEMIC EMBOLISMMECHANICAL HEART VALVE 2.5-3.5 FROM: ORAL ANTICOAGULANTS. MECHANISM OF ACTION, CLINICAL EFFECTIVENESS, AND OPTIMAL THERAPE UTIC RANGE. CHEST 1995;108:231S-246S.Performed By: #### [id number] ####[facility] ([facility])[address], [place] [address]CLLRHACKFGM TIME (PT) IN PPP BY COAGULATION ASSAY13.8 EoaodyaJdneng81.3-14.8UnSt. John of God HospitalComment on above:Performed By: #### [id number] ####[facility] ([facility])[address], [place] [address]mk 84-16-843681IpshlbFrmwcxfpiy of [facility] Gmcpvc36StvrreLucmlfgipoDetwiler Memorial HospitalANESon 91-38-4938RQFKEjsfafPiqibtdnnk of [facility] Medical CenterANTI-XA (HEPARIN LEVEL)on 63-88-4552LIAQAQT UNFRACTIONATED (U/ML) IN PPP BY CHROMOGENIC METHOD0.61 IU/mL Normal0.3-0.7UnSt. John of God HospitalComment on above:Order Comment: Check anti-Xa level every 6 hours while on heparin infusion, or per protocol. Result Comment: Rivaroxaban and Apixaban will interfere with the anti Xa assay used to monitor UFH and LMWH.Performed By: #### [id number] ####[facility] ([facility])[address] [place], [place] [address]AVVHqu 52-60-2973HRCTDWVCH PARTIAL THROMBOPLASTIN TIME IN PPP BY COAGULATION ASSAY77.7 TgdoslhRpiq34.0-35.0 [facility] HospitalComment on above:Result Comment: Clinical significance of the APTT is questionable in the presence of heparin.Performed By: #### [id number] ####[facility] ([facility])[address] [place] [address] BASIC METABOLIC PANELon 46-30-0161Orbby gap [Moles/Vol]6 mmol/LLow7-20UnSt. John of God HospitalComment on above:Performed By: #### [id number] ####[facility] ([facility])[address] [place], [place] [address]Zdcrzlu [Mass/Vol]9.0 mg/dLNormal8.6-10.3UnSt. John of God HospitalComment on above:Performed By: #### [id number] ####[facility] ([facility])[address] [place] [address] Chloride [Moles/Vol]104 mmol/NEzwyhm72-785QimbbpomvkSt. John of God Hospital Comment on above:Performed By: #### [id number] ####[facility] (AKER)[address] [place], [place] [address]IH2 [Moles/Vol]32 mmol/NQtyf69-90BhfhwpgwhsSt. John of God HospitalComment on above:Performed By: #### [id number] ####[facility] ([facility])[address] [place] [address]Aizixmhpnj [Mass/Vol]0.91 mg/dL Normal0.70-1.30UnSt. John of God HospitalComment on above:Performed By: #### [id number] ####[facility] ([facility])[address] [address] GLOMERULAR FILTRATION RATE ML/MIN/1.73 SQ M.VNIAMGANB95.4 mL/min/1.73m*2Normal >60.0UnSt. John of God HospitalComment on above:Result Comment: [facility]???s estimated glomerular filtration rate (eG FR) will [...] group of individuals. Performed By: #### [id number] ####[facility] ([facility])[address] [place] [address]Fphhyfa [Mass/Vol]90 mg/bIJdecww16-206UiwwhpuzxzSt. John of God HospitalComment on above:Performed By: #### [id number] ####[facility] ([facility])[address] [place] [address]Gskyecvtc [Moles/Vol]4.4 mmol/LNormal 3.5-5.1UnSt. John of God HospitalComment on above:Performed By: #### [id number] ####[facility] ([facility])[address] [place] [address]Qdiivk [Moles/Vol]138 mmol/IQntjpg432-081KftozmgpexSt. John of God HospitalComment on above:Performed By: #### [id number] ####[facility] ([facility])[address] [place] [address]Xfxv nitrogen [Mass/Vol]16 mg/dLNormal7-25UnSt. John of God HospitalComment on above:Performed By: #### [id number] ####[facility] ([facility])[address] [place], [place] [address]RGVM NITROGEN/CREATININE (MASS RATIO) IN SER/PLAS17.6NormalUniversDetwiler Memorial HospitalComment on above: Performed By: #### [id number] ####[facility] ([facility])[address] [place], [place] [address]SZT WITH AUTO DIFFERENTIALon 81-87-4177Blfxwcuxz (Bld) [#/Vol]0.03 10*3/uLNormal0.00-0.20UnSt. John of God HospitalComment on above: Performed By: #### [id number] ####[facility] ([facility])[address] [place], [place] [address]Pljqbjrfd/100 WBC (Bld)0.7 %Normal0.0-1.0UnSt. John of God HospitalComment on above:Performed By: #### [id number] ####[facility] ([facility])[address] [facility], [place] [address]Lcijgcfqwax (Bld) [#/Vol]0.13 10*3/uL Normal0.00-0.50UnSt. John of God HospitalComment on above:Performed By: #### [id number] ####[facility] ([facility])[address] [place] [address] Eosinophils/100 WBC (Bld)3.1 %Normal0.0-6.0UnSt. John of God Hospital Comment on above:Performed By: #### [id number] ####[facility] ([facility])[address] [place], [place] [address]Kdqvdhpssmn distribution width (RBC) [Ratio]12.7 % Wclfej57.5-15.0UnSt. John of God HospitalComment on above:Performed By: #### [id number] ####[facility] ([facility])[address] [place] [address] ERYTHROCYTE MEAN CORPUSCULAR HEMOGLOBIN CONCENTRATION (G/DL) BY KHASORYAG11.9 g/gDAdvwru08.0-35.0UnSt. John of God HospitalComment on above:Performed By: #### [id number] ####[facility] ([facility])[address] [place], [place] [address]Hrwwkzmgwz (Bld) [Volume fraction]46.3 %Wnjgks95.0-50.0UnSt. John of God HospitalComment on above:Performed By: #### [id number] ####[facility] ([facility])[address] [place], [place] [address]Crokrrglgw (Bld) [Mass/Vol]15.7 g/dL Gvgmdo95.0-17.0UnSt. John of God HospitalComment on above:Performed By: #### [id number] ####[facility] ([facility])[address] [place] [address] Immature granulocytes (Bld) [#/Vol]0.02 10*3/uLNormal0.00-0.20UnSt. John of God HospitalComment on above:Performed By: #### [id number] ####[facility] (BEAKER)[address] [facility] [place], [place] [address]Xtpjpmwl granulocytes/100 WBC (Bld)0.5 %Normal0.0-1.0UnSt. John of God HospitalComment on above: Performed By: #### [id number] ####[facility] ([facility])[address] [place], [place] [address]Sjlauzrrtsa (Bld) [#/Vol]1.03 10*3/uLLow1.20-4.00UnSt. John of God HospitalComment on above:Performed By: #### [id number] ####[facility] ([facility])[address] [facility] [place], [place] [address]Jvkhqenvkig/100 WBC (Bld) 24.9 %Ihyxof01.0-45.0UnSt. John of God HospitalComment on above: Performed By: #### [id number] ####[facility] ([facility])[address] [place], [place] [address]UXM (RBC) [Entitic mass]30.6 ulZoyrau02.0-33.0UnSt. John of God HospitalComment on above:Performed By: #### [id number] ####[facility] ([facility])[address] [place] [address]LQC (RBC) [Entitic vol] 90.3 oYWwyreb15.0-98.0UnSt. John of God HospitalComment on above: Performed By: #### [id number] ####[facility] ([facility])[address] [facility] [place], [place] [address]Pamncmjrl (Bld) [#/Vol]0.41 10*3/uLNormal0.10-1.00UnSt. John of God HospitalComment on above:Performed By: #### [id number] ####[facility] ([facility])[address] [facility] [place], [place] [address]Mzltdzqzz/100 WBC (Bld) 9.9 %Normal5.0-12.0UnSt. John of God HospitalComment on above:Performed By: #### [id number] ####[facility] ([facility])[address] [facility] [place], [place] [address]Yzidhdmhvcq (Bld) [#/Vol]2.51 10*3/uLNormal1.60-7.60UnSt. John of God HospitalComment on above:Performed By: #### [id number] ####[facility] ([facility])[address] [place], [place] [address]Ciutmbqgazm/100 WBC (Bld)60.9 %Normal 40.0-72.0UnSt. John of God HospitalComment on above:Performed By: #### [id number] ####[facility] ([facility])[address] [facility] H[place]ITAL[place], [place] [address]AXNA (PER 100 WBCS) BY AUTOMATED COUNT0.0 %Bjhvoq4RouyqxjiedSt. John of God Hospital Comment on above:Performed By: #### [id number] ####[facility] ([facility])[address] [place], [place] [address]RVHTPOPUJ (10*3/UL) IN BLOOD AUTOMATED [id number] 10*3/mEQtzurm525-610CcjosuhvmtSt. John of God HospitalComment on above: Performed By: #### [id number] ####[facility] ([facility])[address] [place] [address]DNI (Bld) [#/Vol]5.13 10*6/uLNormal4.20-5.70UnSt. John of God HospitalComment on above:Performed By: #### [id number] ####[facility] ([facility])[address] [place] [address]NJY (Bld) [#/Vol]4.13 10*3/uLNormal4.00-10.60UnSt. John of God HospitalComment on above: Performed By: #### [id number] ####[facility] ([facility])[address] [place] [address]IGAQBTEeu 99-50-2299LYUGLOFToqmyaLedgnkpyby of [facility] CenterHEMOGLOBIN A1Con 25-35-3783Uqgtyub [Mass/Vol]114 mg/dLNormalUniversDetwiler Memorial HospitalComment on above:Performed By: #### [id number] ####[facility] ([facility])[address] [place] [address]IsA7n (Bld) [Mass fraction]5.6 %Normal4.0-6.0UnSt. John of God HospitalComment on above: Performed By: #### [id number] ####[facility] ([facility])[address] [place] [address]CNiu 65-63-3797PFDiihlsPbikrdjgkd of [facility] CenterHPNoal [facility] HospitalHPNormalUniGreene Memorial Hospital LIPID PANELon 64-24-3603OMPI/HDL3.7 mg/dLNormalUniversDetwiler Memorial HospitalComment on above:Performed By: #### [id number] ####[facility] ([facility])[address] [place] [address]Xymfrthofnh [Mass/Vol]157 mg/dLNormal 120-200UnSt. John of God HospitalComment on above:Performed By: #### [id number] ####[facility] ([facility])[address]IFER[address] MARY [facility]ITATION [place]ITAL[place], [place] [address]Yjmszifyo [Mass/Vol]76 mg/dLNormal<150UnSt. John of God HospitalComment on above: Result Comment: TRIGLYCERIDE REFERENCE RANGE:20 YEARS AND OLDER CARDIOVASCULAR RISKLESS THAN 150 mg/dL LOW FTYR651 TO 199 mg/dL BORDERLINE IOVC962 mg/dL AND GREATER HIGH RISKPerformed By: #### [id number] ####[facility] ([facility])[address] [facility] [place], [place] [address]Jfyfmctgz [Mass/Vol]99 mg/dLNormal0-160UnSt. John of God HospitalComment on above:Performed By: #### [id number] ####[facility] ([facility])[address] M[facility]ATION [place], [place] [address]Qbsnuzerj [Mass/Vol]43 mg/oKDuegqs87-49QpmeaecsfdSt. John of God HospitalComment on above:Performed By: #### [id number] ####[facility] ([facility])[address] [place] [address] NON HDL CHOL. (LDL+VLDL)114NormalUniversDetwiler Memorial HospitalComment on above:Performed By: #### [id number] ####[facility] ([facility]ER)[address] [facility], [place] [address]ACQMW VLDL-C15 mg/dLNormal0-40UnSt. John of God HospitalComment on above:Performed By: #### [id number] ####[facility] (BE[facility]ER)[address] [facility], [place] [address]IPIBZJDSIzg 23-02-1183Avkzdppmu [Mass/Vol]2.1 mg/dLNormal1.9-2.7UnSt. John of God HospitalComment on above:Performed By: #### [id number] ####[facility] ([facility])[address] [facility], [place] [address]XQKDYUHCse 22-70-7408KXPKTFTOTfnggyZsorjxzykl of [facility] CenterPHOSPHORUSon 77-11-2198Zvqsfpexe [Mass/Vol]2.9 mg/dLNormal2.5-5.0 [facility] HospitalComment on above:Performed By: #### [id number] ####[facility] ([facility])[address]ER[address] [facility] [address]ASJLXJI-SRIei 68-14-3025DTK IN PPP BY COAGULATION ASSAY1.77Vcduzw3.90-1.10UnSt. John of God HospitalComment on above:Result Comment: ACCCP RECOMMENDED INR FOR WARFARIN THERAPY CONDITION INRPROPHYLAXIS OF VENOUS THROMBOSIS 2-3(HIGH-RISK SURGERY)TREATMENT OF VENOUS THROMBOSIS 2-3TREATMENT OF PULMONARY EMBOLISM 2-3PREVENTION OF SYSTEMIC EMBOLISM: 2-3 ACUTE MYOCARDIAL INFARCTION TISSUE HEART VALVES VALVULAR HEART DISEASE ATRIAL FIBRILLATION RECURRENT SYSTEMIC EMBOLISMMECHANICAL HEART VALVE 2.5-3.5 FROM: ORAL ANTICOAGULANTS. MECHANISM OF ACTION, CLINICAL EFFECTIVENESS, AND OPTIMAL THERAPE UTIC RANGE. CHEST 1995;108:231S-246S.Performed By: #### [id number] ####[facility] ([facility])[address] [place], [place] [address]AWXMEGKQUHC TIME (PT) IN PPP BY COAGULATION ASSAY13.5 GwgunyfJjfumh84.3-14.8UnSt. John of God HospitalComment on above:Performed By: #### [id number] ####[facility] ([facility])[address] [facility] [place] [address]HTQ, SCREENINGon 58-65-6814GHURYVCS SPECIFIC AG (NG/ML) IN SER/PLAS0.9 ng/mLNormal0.4-4UnSt. John of God HospitalComment on above:Performed By: #### [id number] ####[facility] ([facility])[address] [place], [place] [address]XFQwu 20-92-4841MPQAYKGHNOO (MIU/L) IN SER/PLAS BY DETECTION LIMIT <= 0.05 MIU/L5.34 mIU/LNormal0.34-5.60UnSt. John of God HospitalComment on above:Performed By: #### [id number] ####[facility] ([facility])[address], [place] [address]BRLD AND SCREENon 94-61-3488GG SCREENNegativeNoAsheville Specialty HospitalniGreene Memorial HospitalComment on above:Performed By: #### [id number] ####[facility],ABO group Nom (Bld)ONormal [facility] HospitalComment on above:Performed By: #### [id number] ####[facility],RH TYPE IN BLOODNegativeTogus VA Medical CenterComveterans affairs medical center on above:Performed By: #### [id number] ####[facility],URINALYSIS on 24-45-9756JSVNECNZB, TOTAL PRESENCE IN URINENegativeNormalNegativeUnSt. John of God HospitalComment on above:Order Comment: Microscopics not performed on urines with negative chemical reactions unless requested on original order.Performed By: #### [id number] ####[facility] ([facility])[address], [place] [address]Dutkspg (U)ClearNormalClearUnSt. John of God HospitalComment on above:Order Comment: Microscopics not performed on urines with negative chemical reactions unless requested on original order. Performed By: #### [id number] ####[facility] ([facility])[address], [place] [address]Jyjre (U)Light-YellowNormalColorless, Yellow, Light-Yellow [facility] HospitalComment on above:Order Comment: Microscopics not performed on urines with negative chemical reactions unless requested on original order.Performed By: #### [id number] ####[facility] ([facility])[address] [facility], [place] [address]OYUKMJI (MG/DL) IN URINENormalNormalNormal [facility] HospitalComment on above:Order Comment: Microscopics not performed on urines with negative chemical reactions unless requested on original order.Performed By: #### [id number] ####[facility] ([facility])[address] [facility] [place], [place] [address]LLCXVTMHGY PRESENCE IN URINENegativeNormalNegative [facility] HospitalComment on above:Order Comment: Microscopics not performed on urines with negative chemical reactions unless requested on original order.Performed By: #### [id number] ####[facility] ([facility])[address] [facility], [place] [address]Ylhblym Ql (U)NegativeNormalNegativeUnSt. John of God HospitalComment on above:Order Comment: Microscopics not performed on urines with negative chemical reactions unless requested on original order. Performed By: #### [id number] ####[facility] ([facility])[address] [facility], [place] [address]TTPEOYNOQ ESTERASE PRESENCE IN URINE BY TEST STRIPNegative NormalNegativeUnSt. John of God HospitalComment on above:Order Comment: Microscopics not performed on urines with negative chemical reactions unless requested on original order.Performed By: #### [id number] ####[facility] ([facility])[address] [facility] [place], [place] [address]KLWAUJF PRESENCE IN URINENegative NormalNegativeUnSt. John of God HospitalComment on above:Order Comment: Microscopics not performed on urines with negative chemical reactions unless requested on original order.Performed By: #### [id number] ####[facility] ([facility])[address] [place], [place] [address]cP (U)6.5 [pH]Normal5.0-8.0UnSt. John of God HospitalComment on above:Order Comment: Microscopics not performed on urines with negative chemical reactions unless requested on original order.Performed By: #### [id number] ####[facility] (BE[facility]ER)[address] [facility] [place], [place] [address]Gwtufoo (U) [Mass/Vol]NegativeNormalNegative [facility] HospitalComment on above:Order Comment: Microscopics not performed on urines with negative chemical reactions unless requested on original order.Performed By: #### [id number] ####[facility] ([facility])[address] [facility] [address]Cjzuxpyu gravity (U) [Rel density]1.043High 1.010-1.030UnSt. John of God HospitalComment on above:Order Comment: Microscopics not performed on urines with negative chemical reactions unless requested on original order.Performed By: #### [id number] ####[facility] ([facility])[address] [facility], [place] [address]PETYLNNXMTSU (MG/DL) IN URINENormal NormalNormalUniversDetwiler Memorial HospitalComment on above:Order Comment: Microscopics not performed on urines with negative chemical reactions unless requested on original order.Performed By: #### [id number] ####[facility] ([facility])[address] [place] [address]Albyah Onlyon [id number] Only NormalUnSt. John of God HospitalOrders Onlyon [id number] Only NormalUnSt. John of God HospitalCA ECHO DOPPLER COMPLETEon 07-22-[address] [address] Cardiology Report Signed Patient: Emma James MR#: [id number] : 1950 Acct:[id number] Age/Sex: 73 / M ADM Date: 07/22/24 Loc: CARD Attending Dr: DENNIS IRIZARRY Ordering Physician: DENNIS IRIZARRY Date of Service: 07/22/24 Procedure(s): CA echo doppler complete Accession Number(s): [id number] cc: DENNIS IRIZARRY Patient Name: EMMA JAMES MR#: [id number] : 1950 Exam Date: 07/22/2024 Ordering Doctor: [...] Mcqueen M.D. on 07/22/2024 (more content not included)...[facility] Radiology, Radiologist, MD - 07/22/2024 [place] [address] Cardiology Report Signed Patient: Emma James MR#: [id number] : 1950 Acct:[id number] Age/Sex: 73 / M ADM Date: 07/22/24 Loc: CARD Attending Dr: DENNIS IRIZARRY Ordering Physician: DENNIS IRIZARRY Date of Service: 07/22/24 Procedure(s): CA echo doppler complete Accession Number(s): [id number] cc: DENNIS IRIZARRY Patient Name: EMMA JAMES MR#: [id number] : 1950 Exam Date: 07/22/2024 Ordering Doctor: [...] Signed By: 07/22/24 1632 DD/ 1631 TD/TT: Engine Emission Technician: AB HealthcareRadiology Study observation (narrative)AB [facility] HospitalCA ECHO DOPPLER COMPLETEOrdered By: Radiologist Radiology on [id number] Work Phone: XR CHEST 2 VIEWSon [id number] CHEST 2 VIEWSEXAM: XR Chest, Two Views. [...] report is generated using voice recognition reporting ([employer]). On occasion, [employer] erroneously drops words from the report or replaces the spoken word with a similar sounding word. Please call with any questions/concerns regarding the report. Dictated and transcribed 07/15/2024/tm This report has been electronically signed and approved by the interpreting radiologist.NormalNot AvailableXR Chest 2 Viewson 04-85-8384FHBS: XR Chest, Two Views. REASON FOR EXAM: [...] signed and approved by the interpreting radiologist. [facility] CenterRadiology Study observation (narrative)[facility] CenterXR Chest 2 ViewsOrdered By: Lincoln Devine on 31-20-4215JQRW [employer] Work Phone: MR KNEE RIGHT WO IV CONTRASTon [id number] KNEE RIGHT WO IV CONTRASTExam: MR KNEE [...] SIGNED BY: Uli Buckley AvailableNo Panel Informationon 66-71-7636ZekxqCelso Montano NP 04/09/2024 12:42 PM L Inj/Asp: R knee on 04/09/2024 12:39 PM Indications: pain Details: 21 G needle, anterolateral approach Medications: 40 mg methylPREDNISolone acetate 40 MG/ML Outcome: tolerated well, no immediate complications Site cleaned with isopropyl alcohol Procedure, treatment alternatives, risks and benefits explained, specific risks discussed. Consent was given by the patient. [facility] K[facility] - right 1 or 2 Viewson 41-88-0222Mycazae Result: 04/09/2024: AP and lateral of right [...] No acute bony process noted. Celso Montano APRN-POST DOC FELLOWSHIP [facility] HealthcareRadiology Study observation (narrative)[facility] HealthcareCBC panel Auto (Bld)on 43-53-7281Xornyrzbplk distribution width (RBC) [Ratio]13.6 %11.6 - 15.4 %[facility] HealthcareHematocrit (Bld) [Volume fraction]45.8 %37.5 - 51.0 %[facility] HealthcareHemoglobin (Bld) [Mass/Vol]15.3 g/dL13.0 - 17.7 g/dLSaint John's Regional Health CenterMCH (RBC) [Entitic mass]29.9 pg26.6 - 33.0 pgNORI Healthcare MCHC (RBC) [Mass/Vol]33.4 g/dL31.5 - 35.7 g/dLSaint John's Regional Health CenterMCV (RBC) [Entitic vol]90 fL79 - 97 fLLAYTON HOSPITAL HealthcarePlatelets (Bld) [#/Vol]197 10*3/[facility] HealthcareRBC (Bld) [#/Vol]5.11 10*6/[facility] CenterWBC (Bld) [#/Vol]5.6 10*3/[facility] HealthcareLaboratory - Chemistry and Chemistry - challengeon 31-67-4771Tnnnygr [Mass/Vol]4.3 g/dL3.8 - 4.8 g/dLNORI HealthcareALP [Catalytic activity/Vol]85 U/LNOMS HealthcareALT [Catalytic activity/Vol]19 U/LNOMS HealthcareAST [Catalytic activity/Vol]21 U/LNOMS HealthcareBilirubin [Mass/Vol] 0.5 mg/dL0.0 - 1.2 mg/dLNORI HealthcareCalcium [Mass/Vol]9.3 mg/dL8.6 - 10.2 mg/dLNORI HealthcareChloride [Moles/Vol]102 mmol/L96 - 106 mmol/LNOMS Healthcare [...] [Mass/Vol]2.3 g/dL1.5 - 4.5 g/dLNOMS HealthcareGlucose [Mass/Vol]100 mg/eYZlzo98 - 99 mg/dL N[facility]S HealthcarePotassium [Moles/Vol]4.9 mmol/L3.5 - 5.2 mmol/LNOMS Healthcare Prostate specific Ag [Mass/Vol]0.4 ng/mL0.0 - 4.0 ng/mLNOMS HealthcareComment on above:Reginaldo ECLIA methodology. According to the [place] [employer], Serum PSA should decrease and [...] mg/dLNOMS HealthcareUrea nitrogen/Creatinine [Mass ratio]23 mg/mg10 - 24NORI HealthcareLipid 1996 panelon 38-59-2574Fakeopugpjf [Mass/Vol]202 mg/cDEtzm908 - 199 mg/dLSaint John's Regional Health CenterCholesterol in HDL [Mass/Vol]42 mg/dL39 - PINF mg/dLSaint John's Regional Health CenterCholesterol in LDL [Mass/Vol]115 mg/dLHigh0 - 99 mg/dLSaint John's Regional Health Center Cholesterol in VLDL [Mass/Vol]45 mg/dLHigh5 - 40 mg/dLSaint John's Regional Health Center Triglyceride [Mass/Vol]256 mg/dLHigh0 - 149 mg/dLNOEllis Fischel Cancer CenterNo Panel Informationon 23-94-3738Ytqedopadvtqvp and review of laboratory resultsAbnormal NOMS HealthcarePerformed at: Lab[address] [id number] Manager Corporate Strategy: Tim Tate PhD, Phone: [phone] Hyde Medical Center OPERATIVE NOTEon 79-83-6552SAANAJOVF NOTEOPERATIVE NOTEOPERATION DATE: 2-42-59MQRMLGTCZE:General.PREOPERATIVE DIAGNOSIS: Bilateral inguinal hernias, left worse than [...] the fascia. The fascia waselevated over the photocomposing machine operator's finger and divided. The external abdominis obliquefibers were reflected caudad and cephalad. Thecord was circumferentiallydissected and the cremasteric fibers taken down. A [place] was passed aroundand it was retracted to [...] and the cremasteric fibers takendown over the photocomposing machine operator's hand. The floor was now [...] taken to the Recovery Room in stable condition.[facility] Signed and Approved by: DR SONY LLOYD01/19/2018 10:51:00[facility] READ - NCon 64-91-7423WXET READ - NCDATE OF EXAM: Jul 17 [...] findings.This interpretation, provided by the radiologists of [facility], excludes evaluation of the cardiovascular system, which iscovered in a separate report issued by the ordering cardiologists. The radiologists of [facility] have no responsibilityfor evaluating the structures of the cardiovascular system.NormalEMMusc Health Lancaster Medical CenterC-Reactive Proteinon 03-13-2017C reactive protein (CRP)0.1 mg/dLNormal<0.9CParkwood HospitalComment on above:Performed By: #### WSR, CMP, CRP, RF, CCP ####[facility] [address] [place], [place] [phone] Antibody, IgGon 80-05-2085DNC Antibody, IgG<15Normal<20[facility] on above:Result Comment: < 20 units: Hnpljluv96-65 units: Weak Hqefcxnx04-20 units: Moderate Positive>60 units: Strong PositivePerformed By: #### WSR, CMP, CRP, RF, CCP ####[facility] [address] [place], [place] [phone] 06-73-5107LMWLStwkkw Visit (RHEUMN) --------EMMA JAMES ([id number]) 1950 MDate Time Provider Kxpyrwattl73/23/17 1:25 PM DONTAE RUSSELL (MATT) ANTHONY During your visit today, we recorded the following information about you: Temperature Pulse Blood pressure Weight 97.6 degrees 71/minute 119/80 93.3 kg Height 1.791 Bony Dasilva MD 03/19/2017 1:41 PM AddendumAcmc Healthcare System Orthopaedic ANDamp; Rheumatologic InstituteDepartment of Rheumatic and Immunologic DiseasesThis consult was requested by the doctor listed below for an opinion regardingthe chief complaint listed below, and my final recommendations will becommunicated to the requesting health care provider by way of the sharedmedical record for internal providers or letter via the [facility] for externalproviders.Consulting Physician: SelfSUBJECTIVE:CC: Joint painHistory of [...] [address], 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 pain [...] Date- KNEE ARTHROSCOPY/SURGERY Bilateral- ROTATOR CUFF REPAIR o3Vpmauk History: No family history on file.Social History:Social HistorySubstance Use Topics- Smoking status: Not onfile- Smokeless tobacco: Not on file- Alcohol use Not on fileMedications:ibuprofen 800 mg tablet Take 1 tablet by mouth as needed (for pain.).multivitamin (DAILY MULTIPLE) tablet Take 1 tablet by mouth once daily.Tefectcuvko-Nzixxceln-Ulv C-Mn (GLUCOSAMINE CHONDROITIN MAXSTR) 500-400 mg capTake [...] kg (205 lb 9.6 oz) BMI 29.08 kg/g5NQYIQCF: Well appearing, sitting in chair, in NAD.HEENT: [...] rheumatology staff, Dr. Dasilva.Dontae Russell, MDRheumatology Fellow, [phone] 1:51 PM++++++++ +++++++++++++++++++++++++++++++++++++++++++++++++++++++++++RHEUMATOLOGY STAFF PHYSICIAN NOTEPatientseen and [...] AddendumIt was a pleasure seeing you in [facility]'s rheumatology office today.MEDICATIONS:- You can take Ibuprofen [...] needed. To make an appointmentyourself, please call [phone] (central scheduling). Call [phone] tospeak with the rheumatology front facer.I will contact you by phone or by letter if there are results/recommendationsstill pending.My clinic contact information is...Dontae Russell MDAlice Hyde Medical Center, Orthopaedic and Rheumatologic InstituteAcmc Healthcare SystemTelephone: [phone]: [phone]: [phone]: [phone] [place], [place] [address]Zmzbmkcnl Provider: SELF [200]Allergies As of Date: 03/13/2017 [...] esophagitis [K21.9]Order(s):COMP METABOLIC PANEL [SQCMP] Order #: [id number] FUTURE SED RATE WESTERGREN [SQWSR] Order #: [id number] FUTURE C- REACTIVE PROTEIN (CRP) [SQCRP] Order #: [id number] FUTURE RHEUMATOID FACTOR BL [SQRF] Order #: [id number] FUTURE CCP ANTIBODY IGG [SQCCP] Order #: [id number] FUTURE XR HAND GENERAL 3V PA/LAT/OBL LT [0268715] Order #: [id number] FUTURE XR HAND GENERAL 3V PA/LAT/OBL RT [2057133] Order #: [id number] FUTURE XR KNEE SURVEY ARTHRITIS 1V AP BILAT [0575382] Order #: [id number] FUTURE acetaminophen (TYLENOL) 325 mg tabletTake 2 [...] >> Makayla Stevenson 03/13/2017 2:12 PM >> ELENA STEVENSON [...] To make an appointment yourself, please call [phone] (central scheduling). Call [phone] to speak with the rheumatology front facer. I will contact you by phone or by letter if there are results/recommendations still pending. My clinic contact information is... Dontae Russell MD Fellow, Orthopaedic and Rheumatologic Spray [facility] Appointment: [phone] Address: [address] [place] [address] / [place], [place] [address]Prescriptions ordered this encounter Disp Refills Start End [...] at bedtime. Disc: Course of therapy completed Cfxzmrzdohn-Enasemtez-Upz C-Mn (GLUC* 03/28/2012 03/13/2017 Class: Historical Med Route: ORAL Sig: Take 1 capsule by mouth once daily. Disc: Course of therapy completedDisposition: Return if symptoms worsen or fail to improve.Follow-up and Disposition History RecordedEncounter Number: [id number]:Closed by JM DASILVA on 03/19/17NoH[facility] Metabolic Panelon 58-84-6305Bfvagrm aminotransferase (ALT) 22 U/FBumouc24-11DarzjutebSelect Medical [facility]ty [facility] on above:Performed By: #### WSR, CMP, CRP, RF, CCP ####[place] [phone] g/dLNormal3.9-4.9CSelect Medical Specialty [facility], Inc on above:Performed By: #### WSR, CMP, CRP, RF, CCP ####[place] [phone] phosphatase (ALP)52 U/UKegpbx55-387SpdfyffnuSelect Medical Specialty Hospital - [facility] on above:Performed By: #### WSR, CMP, CRP, RF, CCP ####[facility] [place] [phone] gap11 mmol/LNormal9-18[facility] on above:Performed By: #### WSR, CMP, CRP, RF, CCP ####[place] [phone] aminotransferase (AST)27 U/PKftwyp65-07OugfmuleaSelect Medical Specialty Hospital - [facility] on above:Performed By: #### WSR, CMP, CRP, RF, CCP ####[address] [phone] (total)0.4 mg/dLNormal0.2-1.3CSelect Medical Specialty [facility], Inc on above:Performed By: #### WSR, CMP, CRP, RF, CCP ####[place] [phone] mg/dLNormal8.5-10.2CSelect Medical Specialty [facility], [facility] on above:Performed By: #### WSR, CMP, CRP, RF, CCP ####[place] [phone] mmol/BCldeav97-915AksovhkjpSelect Medical Specialty Hospital [facility] on above:Performed By: #### WSR, CMP, CRP, RF, CCP ####[place] [phone] mmol/LNormal 22-30[facility] on above:Performed By: #### WSR, CMP, CRP, RF, CCP ####[place] [phone] mg/dLHigh0.73-1.22[facility] Comment on above:Performed By: #### WSR, CMP, CRP, RF, CCP ####[place] [address] [address] [phone] (non-black) mL/min/{1.73_m2}NormalSelect Medical Specialty Hospital - [facility] on above:Performed By: #### WSR, CMP, CRP, RF, CCP ####[place] [address] [address] [phone] (non-black)57 .NormalSelect Medical Specialty Hospital - [facility] on above:Result Comment: eGFR (Estimated GFR) Units [...] By: #### WSR, CMP, CRP, RF, CCP ####[place] [address] [address] AveCRochester, [place] [phone] mass conc84 mg/bDMjwvge54-62ZfncsgljvSelect Medical Specialty Hospital [facility] on above:Result Comment: The [place] Diabetes Association (ADA) provides guidance for cutoff [...] Standards of Medical Care in Diabetes 2016, [place] Diabetes Association. Diabetes Care. 2016.39(Suppl 1).Performed By: #### WSR, CMP, CRP, RF, CCP ####[place] [address] [address], [place] [phone] molar conc 4.7 mmol/LNormal3.7-5.1CSelect Medical Specialty Hospital [facility], Inc on above:Performed By: #### WSR, CMP, CRP, RF, CCP ####[facility] Hamer AveCRochester, [place] [phone] g/dLNormal6.3-8.0[facility] on above:Performed By: #### WSR, CMP, CRP, RF, CCP ####[place] [address] [address] AveCRochester, [place] [phone] mmol/IPpswcj672-174IducmforaSelect Medical Specialty Hospital - [facility] on above:Performed By: #### WSR, CMP, CRP, RF, CCP ####[facility] [address] [place], [place] [phone] cziefaoo07 mg/dLNormal9-24[facility] on above:Performed By: #### WSR, CMP, CRP, RF, CCP ####[facility] [address] [place], [place] [phone] 81-36-0870CBVCJNAERTI ID: [id number]: Beverly Meng RtService: (none)Author Type: (none)Type: Progress NotesFiled: 03/13/2017 4:01 PMNote Text: Radiology Service Progress NotePATIENT NAME: EMMA McmahonrocMRN: [id number] OF SERVICE: March 13, 2017TIME: 4:01 PMPATIENT IDENTITY VERIFICATION COMPLETED USING TWO (2) METHODS: Patientconfirmed name verbally and Date of .PATIENT GENDER DATA: MalePAT IENT RELEVANT IMPLANT DATA REVIEWED: YesRADIOLOGY DEPARTMENT: General X-ray: Exam(s) Completed: Lower ExtremityX-Ray(s): Knee, AP Only Bilateral and Wt. Bearing:Upper Extremity X-Ray(s): Hand, Bilateral :PERIPHERAL IV DATA: Not applicableSIGNED BY: Beverly Meng RtOct2016 4:01 PMNormalSt. Mary'S Medical Center, Ironton CampusPROGRESSHNO ID: [id number]: Jm Hinojosa: (none)Author Type: PhysicianType: Progress NotesFiled: 03/19/2017 1:41 PMNote Text:[facility] Orthopaedic AND Rheumatologic InstituteDepartment of Rheumatic and Immunologic DiseasesThis consult was requested by the doctor listed below for an opinionregarding the chief complaint listed below, and my final recommendationswill be communicated to the requesting health care provider by way of the[facility] medical record for internal providers or letter via the [facility] forexternal providers.Consulting Physician: SelfSUBJECTIVE:CC: Joint painHistory of [...] noyola and still works over [address], 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 08 kg/b0TWMUADH: Well appearing, sitting in chair, in NAD.HEENT: [...] No evidence of synovitis ortenderness with palpation. Mokh3fd MCP slightly swollen but only tender with [...] rheumatology staff, Dr. Dasilva.Dontae Russell, MDRheumatology Fellow, [phone] 2016 1:51 PM+++++++++++++++++++++++++ ++++++++++++++++++++++++++++++++++++++++++RHEUMATOLOGY STAFF PHYSICIAN [...] with trial of duloxetine.Jm Dasilva MD, MSc, FRCPCNormalSt. Mary'S Medical Center, [facility]ont[facility] CampusRheumatoid Factoron 05-56-3422Orcjwmuxzs Factor<10Normal<16[facility] on above:Performed By: #### WSR, CMP, CRP, RF, CCP ####[facility] [address] [place], [place] [phone] Rate Westergrenon 97-85-0563Ilf Rate WestergrenUnable to assay. Quantity not sufficient.Normal0-15[facility] on above:Result Comment: Account CreditedCalled [facility] [address] 03.14.2017 AL Performed By: #### WSR, CMP, CRP, RF, CCP ####[facility] [address] [place], [place] [phone] HAND 3V PA/LAT/OBL LTon 03-13-2017 XR HAND [...] on the right.No other significant abnormality.IMPRESSION:No acute findings.Engine Emission Technician: ANNA Transcribe Date/Time: Mar 13 2017 4:35PDictated by : SHAY MATTHEWS MDThis examinationwas interpreted and the report reviewed and electronically signed by: SHAY MATTHEWS MD on Mar 13 2017 4:37PM [id number] Clinic ClevelandXR HAND 3V PA/LAT/OBL RTon 64-84-0457DQ HAND 3V PA/LAT/OBL RT* * *Final Report* [...] on the right.No other significant abnormality.IMPRESSION:No acute findings.Engine Emission Technician: ANNA Transcribe Date/Time: Mar 13 2017 4:35PDictated by : Garrett CASANOVA examinationwas interpreted and the report reviewed and electronically signed by: SHAY MATTHEWS MD on Mar 13 2017 4:37PM [id number] Clinic ClevelandXR KNEE SURVEY 1V AP BILon 79-00-1395JK KNEE SURVEY 1V AP BRITNI* * *Final [...] structures are intact.No other significant abnormality.IMPRESSION:Mild bilateral osteoarthritis.Engine Emission Technician: ANNA Transcribe Date/Time: Mar 13 2017 4:36PDictated by : Garrett CASANOVA examination was interpreted and the report reviewed and electronically signed by: SHAY MATTHEWS MD on Mar 13 2017 4:36PM [id number] [facility] [place] Vital Signs Date TimeVital SignValuePerforming FdjtcbejjDcmbtaao00-76-0824 09:16-0500Body iofziv519.1 cmRobert Juan C DO Work Phone: NOEllis Fischel Cancer CenterHjxwymluqg88-67-6147 09:16-0500Body mass index (BMI) [Ratio]29.28 kg/t0Likmlr Juan C DO Work Phone: [facility] CenterEfbklyfwrh62-51-8857 09:16-0500Body pxefuy86.89 kgRobcarlos Irizarry DO Work Phone: [facility] CenterFxmahvjjwk89-60-2779 09:16-0500Diastolic blood bvjraaoe93 mm[Hg]Dennis Irizarry DO Work Phone: [facility] CenterMpmqfgasel92-93-1975 09:16-0500Heart rate67 /min Dennis Irizarry DO Work Phone: [facility] CenterNmcfwlxtzh19-97-2424 09:16-1581MrQ3% (BldA) [Mass fraction]99 %Dennis Irizarry DO Work Phone: [facility] CenterGkctvsuerv06-78-1255 09:16-0500Systolic blood eoaufqwd261 mm[Hg]Dennis Irizarry DO Work Phone: [facility] CenterAihcryduog49-16-0524 09:22-0400Body rkvwag500.1 cmRoberaustin Irizarry DO Work Phone: [facility] CenterVqkqwjcfqi14-08-7344 09:22-0400Body mass index (BMI) [Ratio]28.66 kg/u8Couxdlcarlos Irizarry DO Work Phone: [facility] CenterAtkswnwrzt44-98-3755 09:22-0400Body cwyamp46.9 kg Dennis Irizarry DO Work Phone: [facility] CenterXizfnoyztj02-92-0766 09:22-0400Diastolic blood cyljnpxp92 mm[Hg]Dennis Irizarry DO Work Phone: [place] [address]Zjofsynebv84-96-3534 09:22-0400Heart rate70 /min Dennis Irizarry DO Work Phone: [place] [address]Wwqiahcyan76-58-0379 09:22-0648ZvY0% (BldA) [Mass fraction]93 %Dennis Irizarry DO Work Phone: [facility] CenterDzysuzvnsu53-51-1946 09:22-0400Systolic blood offdehzu316 mm[Hg]Dennis Irizarry DO Work Phone: [facility] CenterTjuysabnew39-24-3981 14:18-0500Diastolic blood zoldvgbv78 mm[Hg]Brooke Delgado ADVANCED ANALYTICS ASSOCIATE Work Phone: [facility] CenterVzvddsulsw60-25-0823 14:18-0500Heart eueb101 /min Brooke Delgado ADVANCED ANALYTICS ASSOCIATE Work Phone: [facility] CenterRymupogilp17-84-8583 14:18-8110ZoA5% (BldA) [Mass fraction]93 %Brooke Delgado ADVANCED ANALYTICS ASSOCIATE Work Phone: [facility] CenterSdylegnutp86-92-7586 14:18-0500Systolic blood zmldttem561 mm[Hg]Brooke Delgado ADVANCED ANALYTICS ASSOCIATE Work Phone: [facility] CenterQvhuqocuay37-57-0904 08:57-0400Body .1 cmRoberaustin Irizarry DO Work Phone: [facility] CenterUpemppohcj70-97-8169 08:57-0400Body mass index (BMI) [Ratio]29.85 kg/n6Lqfqbv Radhak DO Work Phone: [place] [address]Oykwwiukcj39-48-5150 08:57-0400Body eptrsz51.71 kgRobert Radhak DO Work Phone: noEllis Fischel Cancer CenterOrxtsgpylh32-31-4363 08:57-0400Diastolic blood mleyizid85 mm[Hg]Dennis Irizarry DO Work Phone: [facility] CenterGaopkvzfnl25-88-7972 08:57-0400Heart rate73 /min Dennis Irizarry DO Work Phone: [place] [address]Aaoguxmejv27-20-8212 08:57-2790ZlR0% (BldA) [Mass fraction]96 %Dennis Irizarry DO Work Phone: [place] [address]Amcfmynjaf41-54-8316 08:57-0400Systolic blood hsmxezfn655 mm[Hg]Dennis Irizarry DO Work Phone: [facility] Encounters Encounter DateEncounter TypeCare ProviderFacilityStart: 11-07-2025 End: 06-27-3819ascdoueftvOOEPDS Frances GARCIAGee AvailableStart: 03-28-2025 End: 98-69-6268Spyogk outpatient visit 40 minutesRobcarlos Irizarry DO Work Phone: [facility] Heart Internal MedicineComment on above:Mixed hyperlipidemia (Primary Dx); S/P CABG x 3; S/P Maze operation for atrial fibrillation; Status post ligation of left atrial appendage; Gastroesophageal reflux disease without esophagitis; Hx of atrial fibrillation without current medication; Medicare annual wellness visit, subsequent; ACP (advance care planning); Generalized osteoarthritis of multiple sitesStart: 03-28-2025 End: 94-60-9800Eumtttu encounter procedureDennis Irizarry DO Work Phone: [facility] HealthcareStart: 03-20-2025 End: 43-62-6481wrxdrcfshrHFWWUC Healthtart: 01-15-2025 End: 20-90-0479Spbeyhxvv Result EncounterGeneric External Data ProviderNOMS External Department UnsolicitedStart: 01-15-2025 End: 34-80-0239Wszkdjspv Result EncounterGeneric External Data ProviderNOMS External Department UnsolicitedStart: 01-15-2025 End: 37-54-5362jpitmleevsBJHM [facility] Centertart: 12-25-2024 End: 89-80-5615Ymdetkmdh Result EncounterGeneric External Data ProviderNOMS External Department UnsolicitedStart: 12-25-2024 End: 76-30-5288Uiqpvryvn Result EncounterGeneric External Data ProviderNOMS External Department UnsolicitedStart: 12-11-2024 End: 96-33-6079Qvnilcdtp Result EncounterGeneric External Data ProviderNOMS External Department UnsolicitedStart: 12-11-2024 End: 24-28-6186Hsagzbghj Result EncounterGeneric External Data ProviderNOMS External Department UnsolicitedStart: 12-07-2024 End: 52-56-7382Posstiurh Result EncounterGeneric External Data ProviderNOMS External Department UnsolicitedStart: 12-07-2024 End: 78-20-5748Enizezuul Result EncounterGeneric External Data ProviderNOMS External Department UnsolicitedStart: 11-25-2024 End: 82-71-9229Gcnuqeqsl Result EncounterGeneric External Data ProviderNOMS External Department UnsolicitedStart: 11-25-2024 End: 61-61-2241Fwathespb Result EncounterGeneric External Data ProviderNOMS External Department UnsolicitedStart: 11-21-2024 End: 68-71-2031vtwmhjqckeVHIEUC Medical Centertart: 11-14-2024 End: 61-21-5673Jneazxcax Result EncounterGeneric External Data ProviderNOMS External Department UnsolicitedStart: 11-14-2024 End: 49-21-3690Dkrikaurm Result EncounterGeneric External Data ProviderNOMS External Department UnsolicitedStart: 10-16-2024 End: 58-96-9592Gbxyfsdtd Result EncounterGeneric External Data ProviderNOMS External Department UnsolicitedStart: 10-16-2024 End: 97-78-6773Suredzxpd Result EncounterGeneric External Data ProviderNOMS External Department UnsolicitedStart: 09-20-2024 End: 80-86-7850Tzhqnyrin Result EncounterGeneric External Data ProviderNOMS External Department UnsolicitedStart: 09-20-2024 End: 98-63-4167Muxradbbc Result EncounterGeneric External Data ProviderNOMS External Department UnsolicitedStart: 09-18-2024 End: 39-68-7465Ywlnodhox Result EncounterGeneric External Data ProviderNOMS External Department UnsolicitedStart: 09-18-2024 End: 13-12-6435Uiaaewnkt Result EncounterGeneric External Data ProviderNOMS External Department UnsolicitedStart: 09-11-2024 End: 98-04-5966Eqeosatqr Result EncounterGeneric External Data ProviderNOMS External Department UnsolicitedStart: 09-11-2024 End: 09-64-5549Lzdqhbgka Result EncounterGeneric External Data ProviderNOMS External Department UnsolicitedStart: 65-19-8004dpgltpejdqXLGZWWSelect Medical [facility] [facility]ublintart: 97-91-7661frietbwweyLESK [facility] Hospitaltart: 11-41-9332xcpgvmclcuIMDZBCN J KUThe Jewish Hospitaltart: 09-02-2024 End: 65-40-4694Oyeakbrcmmrk care manage srvc 14 day dischargeDennis Irizarry DO Work Phone: [facility] SWS IMComment on above:Atrial fibrillation, unspecified type (HCC) (Primary Dx); Bilateral leg edema; S/P Maze operation for atrial fibrillation; Status post ligation of left atrial appendage; S/P CABG x 3; Acute diastolic heart failure secondary to coronary artery disease (HCC); Blood loss anemia; Elevated liver enzymes; Mixed hyperlipidemiaStart: 09-02-2024 End: 15-14-8960cdmfnzmrjcRDEJKW J VASCHAKNot AvailableStart: 08-29-2024 End: 26-35-3190qkfilykxmqNKEPHTX [facility]art: 08-29-2024 End: 41-01-4409irggqjstuaGFYCTNO [facility] Hospitaltart: 60-14-7361Cxknbitlow and management of inpatientANTHONY [facility] Hospitaltart: 83-23-9809Zbusqgwbqh and management of inpatient [facility]: 21-11-8908Iqmjbwkhgb and management of inpatientLATINA [facility]art: 19-72-3847Cbnzawqhaz and management of inpatientANTHONY [facility] Hospitaltart: 31-92-2236Vsmvavvylv and management of inpatientJAI LEEFisher-Titus Medical Centertart: 20-91-5428Cfcxnsbbxn and management of inpatientLATINA [facility]: 08-18-2024 Evaluation and management of inpatientLATINA [facility]art: 69-40-0461Ferxtdwwff and management of inpatientREAL BRANDHIMISAELCleveland Clinic Children's Hospital for Rehabilitationtart: 34-73-3532Uveeayrdrr and management of inpatientLAThe MetroHealth Systemtart: 51-72-1712Uvxaollojq and management of inpatientLATINA [facility]art: 61-17-1851Fymqiwfkov and management of inpatientANTHONY [facility] Hospitaltart: 37-01-6282Opumctikzf and management of inpatientANTHONY [facility] Hospitaltart: 17-11-1750Idonuhqvzy and management of inpatientREAL [facility]art: 08-14-2024 End: 62-89-8534Nnmjapkvrf and management of inpatientANTHONY [facility]tart: 85-42-9247Umnbpyesfw and management of inpatient REAL Daniels [facility]tart: 08-14-2024 Evaluation and management of inpatientEHAB [facility]art: 79-19-4705egakfhpkjpKNPF [facility]ertart: 08-14-2024 End: 57-50-0676Zebqkjksrj and management of inpatientANTHONY [facility]tart: 07-30-2024 End: 50-05-3697dbbqccpsajADKW [facility]ertart: 07-22-2024 End: 29-48-3376Vdfmbnbou Result EncounterRobert J Vasdanielak DO Work Phone: noms External Department UnsolicitedStart: 07-22-2024 End: 40-74-5182Jxyydtzza Result EncounterRobert J Vasdanielak DO Work Phone: noms External Department UnsolicitedStart: 07-15-2024 End: 84-44-9501Htctsl outpatient visit 25 minutesBrooke Delgado ADVANCED ANALYTICS ASSOCIATE Work Phone: noms SWS IMComment on above:Shortness of breath (Primary Dx); Bilateral leg edemaStart: 07-15-2024 End: 48-10-2914lmztraflkdNDFASLI L DIDIONNot AvailableStart: 05-10-2024 End: 06-95-5423Dcsxbb flowsheetJr. Armida Ramirez DO Work Phone: NOMS ORTHOStart: 05-10-2024 End: 62-19-0230Yhuvzj flowsheetJr. Armida Ramirez DO Work Phone: NOMS ORTHOStart: 05-10-2024 End: 72-02-5019bpeijanhjqWH., ARMIDA RAMIREZNot AvailableStart: 05-10-2024 End: 01-14-0656Lpomtb outpatient visit 15 minutesJr. Armida Ramirez DO Work Phone: [facility] PCF ORTHOComment on above:Right knee pain, unspecified chronicity (Primary Dx); Primary osteoarthritis of right kneeStart: 04-29-2024 End: 15-19-9900pmjthwjcnkDVLNC B APLINGNot AvailableStart: 04-24-2024 End: 23-67-3610Tgjkcy flowsheetMaria B Apling ADVANCED ANALYTICS ASSOCIATE Work Phone: noms CI ORTHOPAEDICSStart: 04-24-2024 End: 58-91-2321Rnbbxk flowsheetMaria B Apling ADVANCED ANALYTICS ASSOCIATE Work Phone: noms CI ORTHOPAEDICSStart: 04-24-2024 End: 59-67-3007Zwdxtu outpatient visit 15 minutesMaria B Apling ADVANCED ANALYTICS ASSOCIATE Work Phone: noms CI ORTHOPAEDICSComment on above:Right knee pain, unspecified chronicity (Primary Dx); Primary osteoarthritis of right knee; Internal derangement of knee, rightStart: 04-24-2024 End: 27-25-4791tryuqcqatfBBEGT B APLINGNot AvailableStart: 04-17-2024 End: 54-17-7146Qkfhmelcw encounterAshley Valerio ADVANCED ANALYTICS ASSOCIATE Work Phone: noms [facility] IMStart: 04-09-2024 End: 65-55-9876Cfhtiq flowsheetCelso Montano ADVANCED ANALYTICS ASSOCIATE Work Phone: noms CI ORTHOPAEDICSStart: 04-09-2024 End: 40-44-2719Eqetvz flowsheetCelso Montano ADVANCED ANALYTICS ASSOCIATE Work Phone: noms CI ORTHOPAEDICSStart: 04-09-2024 End: 88-86-7472umsrprnzgvTLCXF T OLSENNot AvailableStart: 04-09-2024 End: 24-21-9187Dkqjnz outpatient new 45 minutesCelso Montano ADVANCED ANALYTICS ASSOCIATE Work Phone: noms CI ORTHOPAEDICSComment on above:Primary osteoarthritis of right knee (Primary Dx); Right knee pain, unspecified chronicityStart: 03-22-2024 End: 03-26-3599Xlaksq outpatient visit 25 minutesRobert J Vaschak DO Work Phone: noms SWS IMComment on above:Benign fasciculation-cramp syndrome (Primary Dx); Obesity, unspecified class, unspecified obesity type, unspecified whether serious comorbidity present; Hypercholesteremia (CMS/HCC); Screening PSA (prostate specific antigen)Start: 01-12-2018 End: 75-37-6873Lerarpp encounterPHILIP MCPHERSON HOSPITALFacility:R7Qcdgf: 01-08-2018 Encounter for preprocedural cardiovascular examinationUniversity Hospitals Cleveland Medical Centertart: 01-05-2018 End: 39-55-2162Nupctyx encounterPHILIP MCPHERSON HOSPITALFacility:Q1Jydmb: 07-17-2017 AmbulatoryROBERT VASCHAKFacility:1637Start: 65-24-1899EfmdzwqakyEjcqaqox:9573 Start: 03-13-2017 End: 38-12-5405RdiutscenxZESBIQRK HELENE [facility] HospitalStart: 03-13-2017 End: 70-46-4857YijriowaexGZNZWN (MATT) CHELSEABrecksville VA / Crille HospitalEncounter for preprocedural cardiovascular examinationACMC Healthcare System Procedures DateProcedureProcedure DetailPerforming ClinicianStart: 15-03-7494RL CHEST 2V Generic External Data ProviderStart: 86-68-9765Qlhnza-up Conor HOWARD Start: 19-77-6114DPCCvqueiq External Data ProviderStart: 09-07-1993UXMJydnpmz External Data ProviderStart: 66-20-8425MF ECHO DOPPLER COMPLETEGeneric External Data ProviderStart: 02-70-7266KVL CBC WITH AUTO DIFFGeneric External Data ProviderStart: 93-57-6377Bxgswa-up visitKENVITORREBEKA BRANDRODDYStart: 79-14-6585RNW Generic External Data ProviderStart: 05-61-9560Ruaxrbe of coronary artery bypass graftingS/P CABG x 3Robert Vasdanielak DO Work Phone: Start: 04-61-9076VIYQwnnexn External Data Provider Start: 13-71-5866PLQKcennvb External Data ProviderStart: 99-86-8722OWRLkpmyvp External Data ProviderStart: 49-17-6117STJ CBC WITH AUTO DIFFGeneric External Data ProviderStart: 71-76-5186Gyludq-up visitKIMBERLYREBEKA LEEStart: 09-10-2024 Follow-up visitREAL HOWARDStart: 45-66-3000Ajcnd metabolic panel calcium totalRobert Frances Irizarry DO Work Phone: Start: 78-29-6353Tlriaw-up visitKIMBERLYREBEKA LEE Start: 34-08-8380Hqhsen-up visitKIMBERLYREBEKA LEEStart: 25-86-9545ZM ECHO DOPPLER COMPLETERobert Frances Irizarry DO Work Phone: Start: 96-34-3215Ozurwkcnfafkky aspir&/inj major jt/bursa w/o usCelso Montano ADVANCED ANALYTICS ASSOCIATE Work Phone: Start: 12-34-3256Bljvcrbfns examination knee 1/2 views Celso Montano ADVANCED ANALYTICS ASSOCIATE Work Phone: Start: 68-55-8202Vccangrdgxqek metabolic panelRobert J Juan C DO Work Phone: Start: 96-72-3979Rycoy panelRobert J Vaskerrie DO Work Phone: History of coronary artery bypass graftingS/P CABG x 3 Dennis Frances Irizarry DO Work Phone: History of coronary artery bypass graftingS/P CABG x 3 Dennis Irizarry DO Work Phone: Plan of Treatment DateCare ActivityDetailAuthorStart: 75-95-7217Nufiwcqkt for malignant neoplasm of colonNORI HealthcareStart: 04-03-2026 End: 15-51-6888Coceqpd encounter /13/2026 9:00 AM EST Office Visit [facility] [address] [place] [address] Dennis Irizarry, DO [address] [place] [address] NOMDayana Rojas Internal MedicineStart: 20-71-5797Kqsgsugey vaccinationInfluenza Vaccine (#1)NOMS HealthcareComment on above:Postponed from 01/20/2025 (Patient Refused)Start: 03-28-2025 End: 47-42-5235Dvwwomt encounter procedureNOUKIA[facility] IMStart: 84-06-8086Kfxcrsfle vaccinationNORI HealthcareStart: 35-40-5052Ahmqzadsv vaccinationInfluenza Vaccine (#1)NOMS HealthcareComment on above:Postponed from 01/21/2024 (Patient Refused)Start: 04-26-2025Medicare Annual Wellness (AWV)Medicare Annual Wellness (AWV)NOMS HealthcareStart: 07-15-2024 End: 39-10-3601BMP 12 leadECG 12 lead ECG Routine Shortness of breath Expected: 07/15/2024 (Approximate), Expires: 07/15/2025[facility] Work Phone: Comment on above:Expected: 07/15/2024 (Approximate), Expires: 07/15/2025Start: 04-29-2024 End: 76-81-3601Kwdgrvntlynp / ancillary services mizrnghowo46/09/2024 8:30 AM EST Ancillary Procedure [facility] [address] [place] [address] NOMS FNR MRStart: 04-24-2024 End: 57-61-9883YY Knee - right WO contrastMR knee right wo IV contrast Imaging Routine Internal derangement of knee, right Expected: 04/24/2024 (Approximate), Expires: 04/24/2025[facility] Work Phone: Comment on above:Expected: 04/24/2024 (Approximate), Expires: 04/24/2025Start: 04-24-2024 End: 23-03-2397Qtpfumn encounter procedureNOMS CI ORTHOPAEDICSComment on above: Right knee pain, unspecified chronicity (Primary Dx); Primary osteoarthritis of right kneeStart: 04-14-2024Medicare Annual Wellness (AWV)Medicare Annual Wellness (AWV)NOMS HealthcareStart: 98-08-6602Nenidwpqj for malignant neoplasm of colonNORI Healthcare Immunizations Immunization DateImmunizationNotesCare UihtclyvAubmwmzu34-66-5547lwdxdz vaccine recombinantGrant Otilio ADVANCED ANALYTICS ASSOCIATE Work Phone: [phone]-[employer] [place], [place] [address]Urgyysihbd71-00-2195wtpbyzpbrdiq polysaccharide vaccine, 23 valentGrant Montano ADVANCED ANALYTICS ASSOCIATE Work Phone: [phone]-[employer] TechnologiesSaint John's Regional Health CenterPzcqwgikpx19-39-1144zjmgjbmfzxhw conjugate vaccine, 13 valentGrant Montano ADVANCED ANALYTICS ASSOCIATE Work Phone: [phone] [place], [place] [address]Fghmswuszm60-35-5232evlhpgluh A and hepatitis B vaccineGrant Montano ADVANCED ANALYTICS ASSOCIATE Work Phone: [phone]-[employer] [place], [place] [address]Tzulhglwql12-48-1598wxvqnw vaccine, liveGrant Montano ADVANCED ANALYTICS ASSOCIATE Work Phone: [phone] [place], [place] [address]Qsdbleeeyt92-57-7008hbtkbdwbo A and hepatitis B vaccineGrant Montano ADVANCED ANALYTICS ASSOCIATE Work Phone: [phone]-SilverStorm TechnologiesSaint John's Regional Health CenterHxladmxher63-75-1227oodubsteo A and hepatitis B vaccineGrant Montano ADVANCED ANALYTICS ASSOCIATE Work Phone: [phone]-SilverStorm TechnologiesSaint John's Regional Health CenterYznlbqocnk39-17-9397wcpeyta toxoid, reduced diphtheria toxoid, and acellular pertussis vaccine, adsorbedGrant Montano ADVANCED ANALYTICS ASSOCIATE Work Phone: [phone]-[employer] TechnologiesM[facility] Healthcare Payers DatePayer CategoryPayerPolicy [id number] Health InsuranceWPS [id number] 2018MedicareMEDICARE Member Subscriber Plan / Payer (Effective 2017- Present) Name: Emma James Member ID: [id number] Relation to Subscriber: Self Name: Emma James Subscriber ID: [id number] Payer ID: STATE Group ID: Not on file Type: Medicare Address: [place] [id number] 1960Medicare [id number] [id number] [id number] [id number] [id number] 2..1.224006.3.57[id number] 2.1.017554.3.57[id number] 2.16.840.1.941624.3.57[id number] 2.16.840.1.010245.3.57[id number] 2.16.840.1.573010.3.57[id number] 2.16.840.1.022930.3.579.2.7077Vaailbp0905 Social History DateTypeDetailFacilityStart: 09-15-2023 End: 17-21-0021Nobeyps smoking status NHISOccasional tobacco smokerNOMS HealthcareHistory of tobacco useCigarette SmokerNOMS HealthcareHistory of tobacco useCigar SmokerNOMS HealthcareStart: 09-15-2023 End: 11-85-9545Supzscv use and exposureSmokeless tobacco non-userNORI Healthcare Start: 03-22-2024 End: 00-38-3592Ltlpurake beverage intakeCurrent drinker of alcohol (finding)NOM HealthcareStart: 09-15-2023 End: 51-97-9260Nfmulxe of Social functionNORI HealthcareStart: 09-15-2023 End: 38-66-1325Tgnvump Use Disorder Identification Test - Consumption [AUDIT-C] NOM HealthcareHow often to you have a drink containing alcohol?2-4 times a monthNORI HealthcareHow many standard drinks containing alcohol do you have on a typical day?1 or 2NOMS HealthcareHow often do you have 6 or more drinks on 1 occasion?NeverNOMS HealthcareStart: 91-45-1797Bid assigned at birthNot on file NOM HealthcareStart: 09-69-3570Clqstac CommentOccasionalNORI HealthcareStart: 74-79-3144DwaTypeLQAI Healthcare Functional Status YuauAkewzmgjvxGchmrcRsmgegxw16-12-0677Vqugkbu Health Questionnaire 2 item (PHQ- 2) [Reported][facility] Healthcare Clinical Notes 03-22-2024 to 03-28-2025 Note Date & DocwVusgAtksuexu00-05-9956 History of Present illness Narrative* Dennis Irizarry, DO - 03/28/2025 9:00 AM EST Images from the original note were not included. Patient presents today for Annual MW. He continues with BARRIENTOS HPI: HPI History of Present Illness The patient presents for evaluation of shortness of breath.First noticed his symptoms in 05/2024 while in [place], when he experienced BARRIENTOS,fatigue after walking miles [...] a child. Recent evaluation by Pulmonary at [facility] for BARRIENTOS PFT showed mild restrictive lung [...] sites evaluated and followed with [facility] rheum 7681-5349 Cardiac Ddx: ischemic CM/arrhythmia/ - He reports [...] Diabetes Brother Casey Heart disease Maternal Grandmother [place] Cancer Paternal Grandmother Elizabeth Diabetes Paternal Grandmother Elizabeth Heart disease Paternal Grandfather WG [5] No Known Allergies documented in this encounterSaint John's Regional Health CenterEizabqbxbp30-43-7366 Instructions* Patient Instructions* Urmila Herman LPN - [...] Prevention and staying healthy! documented in this encounterSaint John's Regional Health CenterTxjdkoxrhz06-85-6967 NoteMer[facility]08-27-2025 NoteUnSt. [facility] of [facility] Hospital07-03-2025 Note [facility]04-23-2025 NoteUnSt. John of God Hospital04-22-2025 NoteUnSt. John of God Hospital04-17-2025 Note [facility]04-14-2025 History of Present illness Narrative* Dennis Irizarry, [...] Flowsheet Row Patient Outreach from 08/22/2024 in [place] with Cris Ownes LPN Hospital Information ED, Hospital or Chcf Facility Discharge? Hospital Patient has been contacted within two business days of discharge Yes Diagnosis Dyspnea, abnormal stress test, multi-vessel coronary artery stenosis, S/P CABG, coronary arteriosclerosis, pain Discharge Date 08/21/24 Discharged To: Home Setting Discharge Hospital [facility] Engagement Call Start Time 1520 Admission Date [...] Not at risk (08/29/2024) Received from [facility] PHQ-2 Patient Health Questionnaire-2 Score: 0 FAMILY [...] with 1+ edema Neurologic normal Results 08/14/2024 [facility] Severe, three-vessel coronary artery disease including the [...] 3. S/P Maze operation for atrial fibrillation [facility] 4. Status post ligation of left atrial appendage [facility] 5. S/P CABG x 3 [facility] -DeRiso LOPEZ TO LAD, SVG TO [...] hyperlipidemia low intensity statin documented in this encounterSaint John's Regional Health CenterAlbfophnds36-69-9952 NoteUnSt. John of God Hospital04-02-2025 NoteSent final AVS to [address]04-02-2025 NoteMercy Health Will[facility] Hospital04-02-2025 Note [facility]04-02-2025 NoteMercy Health Willard Hospital04-02-2025 NoteMercy Health [facility] Hospital04-02-2025 Note [facility]04-01-2025 NoteMercy Health [facility]ard Hospital04-01-2025 NoteMercy Health Willard Hospital04-01-2025 Note [facility]04-01-2025 NoteMercy Health Willard Hospital04-01-2025 NoteMercy Health Willard Hospital04-01-2025 Note [facility]03-31-2025 NoteMercy Health Willard Hospital03-31-2025 NoteMercy Health Willard Hospital03-31-2025 Note [facility]03-31-2025 NoteMercy Health Willard Hospital03-31-2025 NoteMercy Health Willard Hospital03-31-2025 Note [facility]03-31-2025 NoteMercy Health Willard Hospital03-31-2025 NoteMercy Health Willard Hospital03-30-2025 Note [facility]03-30-2025 NoteUnSt. John of God Hospital03-30-2025 NoteUnSt. John of God Hospital03-29-2025 Note [facility]03-29-2025 NoteUnSt. John of God Hospital03-29-2025 NoteUnSt. John of God Hospital03-28-2025 NoteConsult rec'd for s/p CABG. Patient had surgery today. Patient is not appropriate for assessment today. SW to follow.[facility]03-28-2025 NotePatient treatments are sufficient at this time, no need for change.[facility]03-28-2025 NoteUnSt. John of God Hospital03-28-2025 NotePeripheral IV Date/Time: 08/16/2024 8:10 AM Inserted by: Federico Ramon MD Placement Needle size: 14 G Laterality: right Location: wrist Local anesthetic: none Site prep: alcohol Technique: anatomical landmarks Attempts: 1UnSt. John of God Hospital03-28-2025 NoteUnSt. John of God Hospital03-28-2025 NoteUnSt. John of God Hospital 08-16-2024 NoteUnSt. John of God Hospital03-28-2025 NoteUnSt. John of God Hospital03-28-2025 NoteUnSt. John of God Hospital 08-15-2024 NoteUnSt. John of God Hospital03-27-2025 NoteBedside spirometry completed and in mediation commissioner.[facility] 08-15-[address] NoteUnSt. John of God Hospital03-27-2025 NoteUnSt. John of God Hospital03-26-2025 NoteUnSt. John of God Hospital 08-14-2024 NoteAdmit to step down Ambulate as tolerated Regular cardiac diet Daily bmp and cbc to monitor kidney function, electrolytes, hgb and wbc Case will be seen and discussed with attending physicianUnSt. John of God Hospital03-26-2025 NoteCT surgery consulted by cardiology, will evaluate patient Will start heparin gtt 4 hours after wrist band removed post cathUnSt. John of God Hospital03-26-2025 NoteWill start heparin gtt 4 hours after wrist band removed post cathUnSt. John of God Hospital03-26-2025 Note Continuous pulse oxUnSt. John of God Hospital03-26-2025 NotePatient underwent heart cath and found to have multi-vessel heart disease Cardiology consultedUnSt. John of God Hospital03-26-[address] of omeprazoleUnSt. John of God Hospital03-11-2025 NoteMercy Health Willard Hospital02-24-2025 History of Present illness Narrative* Brooke Delgado, ADVANCED ANALYTICS ASSOCIATE - 07/15/2024 2:00 PM EST Images from [...] follow-up. Brooke Delgado NP documented in this encounterSaint John's Regional Health CenterRcebhuqwpm96-33-1940 History of Present illness Narrative* Jr. Armida Ramirez DO - 05/10/2024 8:15 AM EST Images from the original note were not included. HISTORY OF PRESENT ILLNESS: EST PT Emma James is an 73 y.o. @ male. (EST PT W/ BEVERLY) RECHECK (R) KNEE ; HERE FOR MRI RESULTS 04/29/24 IN [facility] XRAYS, 04/09/24 IN [facility] MRI, 04/29/24 IN [facility] NO MDP / PREDNISONE S/P CORTISONE [...] for requiring urgent evaluation. documented in this encounterSaint John's Regional Health CenterWakfvonofd56-70-3501 History of Present illness Narrative* Pam Jackson [...] No acute bony process noted. Celso Montano GUEST RELATIONS MANAGER-POST DOC FELLOWSHIP Assessment/Plan Encounter Diagnoses: ICD-10-CM 1. Right knee pain, unspecified chronicity M25.561 2. Primary osteoarthritis of right knee M17.11 3. Internal derangement of knee, right M23.91 MR knee right wo IV contrast discussion of due to failure of conservative treatment would recommend an MRI of the right knee without contrast, activities as tolerated, f[facility]u s[facility] [place] documented in this [facility]11-27-2024 Telephone encounter Note* Telephone Encounter - Ashley Valerio NP - 04/17/2024 12:14 PM EST See email to pt. [facility] CenterWxddxbgdcc42-42-3924 Miscellaneous Notes* Telephone Encounter - Ashley Valerio NP - 04/17/2024 12:14 PM EST See email to pt. documented in this [facility]11-19-2024 History of Present illness Narrative* Celso [...] No acute bony process noted. Celso Montano APRN-POST DOC FELLOWSHIP L Inj/Asp: R knee on 04/09/2024 12:39 [...] develop for requiring urgent evaluation. Celso Montano, GUEST RELATIONS MANAGER-POST DOC FELLOWSHIP documented in this encounterSaint John's Regional Health CenterJnswxehpqh88-25-8199 History of Present illness Narrative* Dennis Garciastew, [...] PSA, total and free documented in [facility] encounterLAY[facility] HealthcareEvaluation note* Diagnosis Primary osteoarthritis of right knee- Primary Right knee pain, unspecified chronicity documented in this encounter [facility] HealthcareEvaluation note* Diagnosis Benign fasciculation-cramp syndrome- Primary Unspecified myoneural disorders Obesity, unspecified class, unspecified obesity type, unspecified whether serious comorbidity present Hypercholesteremia (CMS/HCC) Pure hypercholesterolemia Screening PSA (prostate specific antigen) Special screening for malignant neoplasm of prostate documented in this encounter [facility] HealthcareEvaluation note* Diagnosis Hypercholesteremia (CMS/HCC)- Primary Pure hypercholesterolemia documented in this encounter [facility] HealthcareEvaluation note* Diagnosis Right knee pain, unspecified chronicity- Primary Primary osteoarthritis of right knee Internal derangement of knee, right documented in this encounter [facility] HealthcareEvaluation note* Diagnosis Right knee pain, unspecified chronicity- Primary Primary osteoarthritis of right knee documented in this encounter [facility] HealthcareEvaluation note* Diagnosis Shortness of breath- Primary Bilateral leg edema Edema Shortness of breath documented in this encounter [facility] HealthcareEvaluation note* Diagnosis Atrial fibrillation, unspecified type [...] hyperlipidemia Mixed hyperlipidemia documented in this encounter [facility] HealthcareEvaluation note* Diagnosis Mixed hyperlipidemia- Primary S/P [...] involving multiple sites documented in this encounter [facility] Summary Purpose Family History No Family [...] section and content) DATE CREATED AUTHOR 11/10/2017 [facility] DATE CREATED AUTHOR AUTHOR'S ORGANIZ ATION 11/10/2017 [facility] DATE CREATED AUTHOR AUTHOR'S ORGANIZ ATION 11/14/2017 [facility] DATE CREATED AUTHOR AUTHOR'S ORGANIZ ATION 03/15/2018 [facility] DATE CREATED AUTHOR AUTHOR'S ORGANIZ ATION 03/25/2025 [facility] DATE CREATED AUTHOR AUTHOR'S ORGANIZ ATION 03/30/2025 [facility] EPIC Care Teams (unrecognized sec tion and content) Team MemberRelationshipSpecialtyStart DateEnd Date Dennis Irizarry, [address] [place] [address] PCP - GeneralInternal Medicine09/27/22 Dennis Irizarry, [address] [place] [address] PCP - ACO Reach10/13/22Team MemberRelationshipSpecialtyStart DateEnd Date Dennis Irizarry, [address] [place] [address] PCP - GeneralInternal Medicine09/27/22 Dennis Irizarry, [address] [place] [address] PCP - ACO Reach10/13/22Team MemberRelationshipSpecialtyStart DateEnd Date Dennis Irizarry, [address] [address] [place] [address] PCP - GeneralInternal Medicine09/27/22 Dennis Irizarry, DO [address] [place] [address] PCP - ACO Reach10/13/22Team MemberRelationshipSpecialtyStart DateEnd Date Dennis Irizarry, DO [address] [place] [address] PCP - GeneralInternal Medicine09/27/22 Dennis Irizarry, DO [address] [place] [address] PCP - ACO Reach10/13/22Team MemberRelationshipSpecialtyStart DateEnd Date Dennis Irizarry, DO [address] [place] [address] PCP - GeneralInternal Medicine09/27/22 Dennis Irizarry, DO [address] [place] [address] PCP - ACO Reach10/13/22Team MemberRelationshipSpecialtyStart DateEnd Date Dennis Irizarry, DO [address] [place] [address] PCP - GeneralInternal Medicine09/27/22 Dennis Irizarry, DO [address] [place] [address] PCP - ACO Reach10/13/22Team MemberRelationshipSpecialtyStart DateEnd Date Dennis Irizarry, DO [address] [place] [address] PCP - GeneralInternal Medicine09/27/22 Dennis Irizarry, [address] [place] [address] PCP - ACO Reach10/13/22Team MemberRelationshipSpecialtyStart DateEnd Date Dennis Irizarry, DO [address] [place] [address] PCP - GeneralInternal Medicine09/27/22 Dennis Irizarry, DO [address] [place] [address] PCP - ACO Reach10/13/22Team MemberRelationshipSpecialtyStart DateEnd Date Dennis Irizarry, DO [address] [place] [address] PCP - GeneralInternal Medicine09/27/22 Dennis Irizarry, DO [address] [place] [address] PCP - ACO Reach10/13/22Team MemberRelationshipSpecialtyStart DateEnd Date Dennis Irizarry, DO [address] [place] [address] PCP - GeneralInternal Medicine09/27/22 Dennis Irizarry, [address] [place] [address] PCP - ACO Reach10/13/22Team MemberRelationshipSpecialtyStart DateEnd Date Dennis Irizarry, DO [address] [place] [address] PCP - GeneralInternal Medicine09/27/22 Dennis Irizarry, DO [address] [place] [address] PCP - ACO Reach10/13/22Team MemberRelationshipSpecialtyStart DateEnd Date Dennis Irizarry, [address] [place] [address] PCP - GeneralInternal Medicine09/27/22 Dennis Irizarry, DO [address] [place] [address] PCP - ACO Reach10/13/22Team MemberRelationshipSpecialtyStart DateEnd Date Dennis Irizarry, DO [address] [place] [address] PCP - GeneralInternal Medicine09/27/22 Dennis Irizarry, DO [address] [place] [address] PCP - ACO Reach10/13/22Team MemberRelationshipSpecialtyStart DateEnd Date Dennis Irizarry, DO [address] [place] [address] PCP - GeneralInternal Medicine09/27/22 Dennis Irizarry DO [address] [place] [address] PCP - ACO Reach10/13/22 Leanne Finn MD [address] [facility] [place] [address] Referring PhysicianPulmonary Sewtjvk59/22/25 Laina Mcqueen MD [address] [facility] [place] [address] Referring EdnzksantWxqvlmpagr15/22/25 [facility] Npxrtqzjojzgg80/7/25 Reason for Visit (unrecogniz ed section and [...] BE BASED ON THE PRIMARY CLINICAL RECORDS. [employer] provides no warranty or guarantee of the accuracy or completeness of information in this document.
[2025-04-30 09:13] LABS: Hematocrit 39.1 % (42.0-54.0); Hemoglobin 12.4 g/dL (14.0-18.0); Immature Granulocytes Abs Auto 0.02 10^3/uL (0.00-0.03); Immature Granulocytes Pct Auto 0.4 % (0.0-0.5); Lymphocytes Absolute Auto 1.0 10^3/uL (1.2-3.8); Mean Corpuscular HGB Conc 31.7 g/dL (29.9-35.2); Mean Corpuscular Hemoglobin 26.2 pg (25.9-34.0); Mean Corpuscular Volume 82.7 fL (80.0-94.0); Platelet Count 226 10^3/uL (150-450); Red Blood Count 4.73 10^6/uL (4.70-6.10); White Blood Count 4.9 10^3/uL (4.0-11.0)
[2025-04-30 09:22] LABS: Anion Gap 8.0; Blood Urea Nitrogen 16.0 mg/dL (7.0-18.0); Calcium 9.1 mg/dL (8.5-10.1); Carbon Dioxide 30.3 mmol/L (21.0-32.0); Chloride 102 mmol/L (98-107); Estimated GFR (African America >60 (>=60 mL/min/1.73m^2); Estimated GFR (Non-African Ame >60 (>=60 mL/min/1.73m^2); Glucose 114 mg/dL (74-106); Potassium 4.3 mmol/L (3.5-5.1); Sodium 136 mmol/L (136-145)
== END 2025-04-30 07:55 | disposition home or self-care (01) ==
PROVIDERS: Family Provider Internal Medicine; PCP Internal Medicine; Visit Provider Internal Medicine Interventional Cardiology
DX: Z01.812 Encounter for preprocedural laboratory examination (principal); Z01.810 Encounter for preprocedural cardiovascular examination
CPT/HCPCS: 36415; 80048; 85025